=== PATIENT | female | born 1950 | race Caucasian/White ===

== ENCOUNTER 2016-05-04 08:46 | Inpatient (IN) | payer MEDICARE, OTHER ==
--- NOTE | 2016-05-04 10:21 | RAD ---
INDICATION: Dizziness COMPARISON: CT of the brain dated July 03, 2008 TECHNIQUE: Contiguous axial sections of the brain were obtained from the skull base to the vertex without contrast. FINDINGS: The ventricles, cisterns and sulci are within normal limits. Located at the right frontal lobe white matter tracts there is a new 7 mm focal hypodensity (image 18 of 32). Also new since the previous CT of the brain is a 6 mm hypodense focus at the left caudate head nucleus (image 13). The zuniga-white matter differentiation is adequately maintained and there is no sulcal effacement. No significant focal abnormality or mass effect is present. A new focus of calcium is noted external to the left precentral gyrus (image 20 of 32) of doubtful clinical significance. There is no evidence for intracranial hemorrhage. No significant focal osseous abnormality is present. The mastoid air cells are clear. There is mild mucosal thickening of the anterior ethmoid air cells. IMPRESSION: When compared to the July 03, 2008 CT of the brain there are age indeterminant infarctions involving the right frontal lobe white matter tracts and left caudate head nucleus. If the patient is exhibiting focal neurologic deficits then further characterization can be obtained with MRI of the brain.
[2016-05-04] MEDS ORDERED: NS 0.9% 1000 ML* 1,000 ML IV ONE (12:19)
[2016-05-04 12:51] LABS: Hematocrit 45 % (35-47); Hemoglobin 15.2 g/dl (12.0-16.0); Mean Corpuscular HGB Conc 34 g/dl (31-36); Mean Corpuscular Hemoglobin 33 pg (27-31); Mean Corpuscular Volume 98 fL (80-97); Mean Platelet Volume 8 um3 (7.4-10.4); Red Blood Count 4.59 10^6/ul (4.0-5.4); Red Cell Distribution Width 13 % (10.5-15); White Blood Count 5.9 10^3/ul (3.5-10.8)
[2016-05-04 13:08] LABS: Albumin 4.2 g/dL (3.2-5.2); BUN/Creatinine Ratio 17.2 (8-20); Calcium 9.6 mg/dL (8.6-10.3); EGFR Non-African American 65.3 (>60); Globulin 2.9 g/dL (2-4); Total Bilirubin 0.6 mg/dL (0.2-1.0); Total Protein 7.1 g/dL (6.4-8.9)
[2016-05-04 13:29] LABS: TSH (Thyroid Stimulating Horm) 1.57 mcIU/mL (0.34-5.60)
[2016-05-04 13:30] LABS: Urine Bacteria 1+ (Absent); Urine Bilirubin Negative (Negative); Urine Glucose Negative (Negative); Urine Nitrite Negative (Negative)
--- NOTE | 2016-05-04 16:23 | RAD ---
INDICATION: Weakness COMPARISON: CT brain May 04, 2016 TECHNIQUE: sagittal T1 FLAIR, axial diffusion, axial T1 FLAIR, axial T2, axial T2 FLAIR, and SWI images were acquired. FINDINGS: Craniocervical junction: The craniocervical junction appears normal. Ventricles/sulci: The ventricles and cisterns are normal in size and configuration for age. Brain parenchyma: Diffusion weighted images show multiple tiny areas of restricted diffusion in the periventricular and subcortical white matter bilaterally most prominent near the vertex. The distribution suggests acute/subacute embolic phenomena. There is a lacunar type infarct in the left caudate nucleus consistent with a prior ischemic event. There are no other focal parenchymal abnormalities. There is no evidence of intracranial mass or mass effect. Intracranial hemorrhage: There is no intracranial hemorrhage. Extra-axial spaces: There are no extra-axial fluid collections or masses. Orbits: There are no MR abnormalities of the orbital structures. Paranasal sinuses/mastoid: The paranasal sinuses are clear. The mastoid air cells are well aerated.. Vascular: No abnormalities are seen. Other: None IMPRESSION: TINY FOCI OF RESTRICTED DIFFUSION IN BOTH CEREBRAL HEMISPHERES MOST CONSISTENT WITH ACUTE ISCHEMIA LIKELY FROM EMBOLIC PHENOMENA. 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
[2016-05-04] MEDS ORDERED: hydrOXYzine HCL TAB* 25 MG PO ONE (17:08)
[2016-05-04] MEDS ORDERED: Acetaminophen TAB* 325 MG PO PRN (17:14)
[2016-05-04] MEDS ORDERED: Aspirin TAB* 325 MG PO ONE (17:19)
[2016-05-04] MEDS ORDERED: Iohexol 350* (CONTRAST) 500 ML MDV IV ONE (17:21)
--- NOTE | 2016-05-04 18:28 | RAD ---
INDICATION: CVA COMPARISON: MRI brain same date TECHNIQUE: Axial source images were acquired with coronal and sagittal reconstructions. CT angiographic technique was utilized with injection of 80 mL Omnipaque 350. FINDINGS: Aortic arch: There are no CT angiogram abnormalities of the arch or the great vessels arising from the arch. There are mild atherosclerotic calcifications. Right carotid: There is presumed interval thickening of the common carotid artery. The right internal carotid artery is small in caliber. There is no focal stenosis of the bifurcation. The horizontal portion of the internal carotid artery is irregular and small in caliber. The carotid siphon is also small in caliber and there are atherosclerotic calcifications. The remainder of the internal carotid artery to the carotid termination is likely small in caliber. Left carotid: The common carotid artery is widely patent. There are extensive intimal microcalcifications the bifurcation with an estimated 70% diameter stenosis. The remaining extracranial portion of the internal carotid artery is patent and without focal stenosis although it is mildly diminished in caliber. There are atherosclerotic changes at the level of the carotid siphon. The carotid termination is patent. Right middle and anterior cerebral arteries: The anterior and middle cerebral arteries are patent. There are luminal irregularities with multifocal stenoses. Left middle and anterior cerebral arteries: The anterior middle cerebral arteries are patent. There are luminal irregularities with multifocal stenoses. Right vertebral: The right vertebral artery is occluded at its origin and is only reconstituted near the confluence to form the basilar artery. Left vertebral: The CT angiographic appearance of the vertebral artery is normal. Basilar artery: The basilar artery and basilar tip appear normal. Posterior cerebral arteries: The posterior cerebral arteries are small in caliber. [place]: The CT angiographic appearance of the [place] is intact. Source images show no evidence of mass or adenopathy within the neck. There are no focal parenchymal abnormalities or abnormal areas of enhancement. There is apparent mild diffuse thickening of the esophagus. Consider esophagitis. Recommend endoscopy if clinically indicated. IMPRESSION: THERE ARE DIFFUSE LUMINAL IRREGULARITIES WITH MULTIFOCAL STENOSES THROUGHOUT THE INTERNAL AND MIDDLE CEREBRAL ARTERIES BILATERALLY. ADDITIONALLY, THERE ARE ATHEROSCLEROTIC CHANGES AT THE LEFT CAROTID BIFURCATION RESULTING IN A FOCAL 70% DIAMETER STENOSIS. THESE FINDINGS WHEN REVIEWED IN CONTEXT WITH THE CONCURRENT MRI OF THE BRAIN SUGGEST THAT THE DIFFERENTIAL FOR THE ETIOLOGY OF THE THE PUNCTATE AREAS OF ACUTE ISCHEMIA ON THE MRI SHOULD ALSO INCLUDE A VASCULITIS OR ATHEROSCLEROTIC CHANGE. CPT II Codes: 3100F PQRS
[2016-05-04] MEDS: Mometasone/Formoter 200/5 MDI INH SCH (20:19)
--- NOTE | 2016-05-04 21:52 | HP ---
HISTORY AND PHYSICAL: DATE OF ADMISSION: 05/04/16 PRIMARY CARE PROVIDER: Dr. Kelley. CHIEF COMPLAINT: Off balance. HISTORY OF PRESENT ILLNESS: Ms. Sanders is a 65-year-old female who presented to the emergency room on 05/04/16 with complaints of being off balance. The patient states over the last 1 week, she has had intermittent episodes of stumbling around and feeling as if her equilibrium was off. The patient states that she woke up in the middle of last night having to go to the bathroom and had a very difficulty time getting to the bathroom. She states that feeling off balance lasted all night long. She denied any sensation of dizziness or spinning. She states that she did not feel light-headed. She denies any sudden changes in vision, slurred speech, facial droop or weakness on either side of her body. The patient states in general she has felt quite well except for this feeling of being off balance except she had a cold about a [id number] ago and was on prednisone. Additionally, the patient remembers that couple of weeks ago she presented to the emergency room for markedly elevated blood pressure. This in fact was in February 2016. PAST MEDICAL HISTORY: 1. Chronic urticaria. 2. Hypertension. 3. COPD. 4. CAD. PAST SURGICAL HISTORY: 1. Cholecystectomy. 2. CASEY-BSO. ALLERGIES: LATEX, NIACIN and STATINS. FAMILY HISTORY: Mom at the age of 93 of old age. Dad at the age of 75 of peritonitis following what sounds to be a colonic perforation. SOCIAL HISTORY: The patient is an active smoker of one pack per day and states that she has been smoking for at least to 20 years. She admits to drinking 2 to 3 alcoholic beverages per night. She is . She has one daughter whose name is Nafisa Calvin, phone number is [phone], who is her healthcare proxy. REVIEW OF SYSTEMS: The patient denies any fevers or chills, or anorexia. No chest pain, no palpitations. No lower extremity edema. She does admit to a smoker's cough. No shortness of breath. No nausea, vomiting, abdominal pain, constipation, diarrhea, or hematochezia. She denies any hematuria. She does note urinary urgency for the last couple of days as well as mild dysuria. No focal weakness or sensory loss as above. No dysphagia. No joint pain or muscle pains out of the ordinary. No rashes. No anxiety or depression. PHYSICAL EXAMINATION GENERAL: The patient is a well developed, middle aged female, sitting in a stretcher, in no acute distress. VITAL SIGNS: Blood pressure 152/73, pulse 94, respirations 17, temp 97.3, O2 sat is 92% on room air. HEENT: Pupils are equal. They are round. They react to light. Extraocular muscles are intact. Oropharynx is clear. Oral mucosa is moist. NECK: There is no submandibular, cervical, or supraclavicular adenopathy. Thyroid is not enlarged. No thyroid nodules are noted. PULMONARY: Breath sounds are diminished in all lung solis. CARDIAC: Normal S1, S2. Regular rate and rhythm. I do not appreciate any murmurs. There is no lower extremity edema. ABDOMEN: Bowel sounds are present. Soft, nontender, nondistended. MUSCULOSKELETAL: There is no cyanosis or clubbing of the digits. There is full active range of motion of all 4 extremities. NEUROLOGIC: Cranial nerves II through XII are grossly intact. Sensation is intact to light touch throughout. Strength is 5/5 and symmetric in both upper and lower extremities bilaterally. PSYCH: The patient is alert. She is oriented x3. Affect appears appropriate. SKIN: Warm and dry. There are no rashes. DIAGNOSTIC STUDIES/LABORATORY DATA: WBC 5.9, hemoglobin 15.2, hematocrit 45, platelets 195. Sodium 136, potassium 4.0, chloride 105, CO2 26, BUN 15, creatinine 0.87, glucose 106, lactic acid 1.0. Calcium 9.6, magnesium 2.0, bilirubin 0.6, AST 16, ALT 11, alk phos 57, troponin 0, albumin 4.28, TSH 1.57. Urinalysis reveals a cloudy urine with a specific gravity of 1.012, 3+ leukocyte esterase, 2+ wbc's, 1+ bacteria. When compared to 07/03/08 CT of the brain, there are age indeterminate infarctions involving the right frontal lobe, white matter tracts and left caudate head nucleus. MRI brain, tiny foci of restricted diffusion in both cerebral hemispheres most consistent with acute ischemia likely from embolic phenomenon. Older smaller infarct of the left caudate nucleus is also noted. EKG reveals normal sinus rhythm without any acute ST-T wave abnormalities. ASSESSMENT AND PLAN: Ms. Sanders is a 65-year-old female who presented to the emergency room with complaints of feeling off balance in the setting of known hypertension, chronic obstructive pulmonary disease, coronary artery disease and is found to have small areas of tiny restricted diffusion on MRI consistent with acute embolic cerebrovascular accidents. 1. Acute embolic cerebrovascular accidents. The patient carries no history of atrial fibrillation. She will be monitored on telemetry to evaluate for this. Additionally, the patient will undergo a CT angiogram of the head and neck. She will also have transthoracic echocardiogram. The patient will receive a full dose aspirin tonight and then continued on aspirin 81 mg p.o. daily. A lipid profile will be obtained tomorrow morning. Unfortunately, the patient does carry intolerance to statins. Neuro checks will be performed q.4 hours. The patient does not have any speech deficits. Therefore, I do not feel that Speech Therapy consultation is warranted nor does she have any PT or OT needs at this time. 2. Hypertension. At this point, the patient's blood pressure is moderately elevated. I will be maintaining her on her usual home medication regimen. In the next day or so, we will need to work on obtaining better blood pressure control. 3. Chronic obstructive pulmonary disease. The patient will be placed on a nicotine patch for history of tobacco abuse. She will be continued on her usual dose of Advair and Spiriva and have albuterol inhaler as needed. There are no signs of exacerbation at this time. 4. Coronary artery disease. The patient has no complaints. She will be again continued on aspirin 81 mg daily as well as metoprolol tartrate. 5. DVT prophylaxis. According to Adult Thrombosis Prophylaxis Risk Factor Assessment Guide, the patient has a total risk factor score of 7 making her the highest risk. She will placed on heparin 5000 units subcutaneous q.8 hours. 6. Code status is full. Again, the patient indicates that her daughter, Nafisa , is her healthcare proxy. TIME SPENT: 65 minutes were spent admitting this patient. CC: Dr. Kelley * [id number]/[facility] #: [id number] VINICIUS
[2016-05-04] MEDS: CMCS: OMEGA-3 FATTY ACIDS (NF) 1,000 MG CAP PO SCH (22:57)
[2016-05-04] MEDS: hydrOXYzine HCL TAB* 25 MG PO PRN (22:57)
[2016-05-04] MEDS: Metoprolol Tartrate TAB* 50 mg PO SCH (22:57)
[2016-05-04] MEDS: Spironolactone TAB* 25 MG PO SCH (22:57)
[2016-05-04] MEDS: Heparin VIAL(*) 5000 UNITS/ML VIAL (FIVE THOUSAND) SUBCUT SCH (22:58)
--- NOTE | 2016-05-04 23:39 | CONS ---
CC: Claire Kelley MD CONSULTATION REPORT: DATE OF CONSULT: 05/04/16 REQUESTING PHYSICIAN: Dr. Phan. PRIMARY CARE DOCTOR: Claire Kelley MD. REASON FOR CONSULT: Stroke. HISTORY OF PRESENT ILLNESS: The patient is a 65-year-old right-handed female who in the past week had experienced intermittent gait problem on and off. Last night when she woke up in the middle of the night to go to the bathroom, she really felt off balance. She called her daughter this morning and then she was brought to the hospital. During the workup, an MRI of the brain showed some scattered small strokes compatible with embolic stroke. A CT angiogram showed multiple stenosis in the carotids and suspicious for vasculitis. She denies any double vision, dysarthria, numbness or weakness in the legs and arms. She reports some dysphagia; however, that has been present for more than 1 week ago, again intermittently. PAST MEDICAL HISTORY: 1. Hypertension. 2. COPD. 3. Chronic urticaria. 4. Allergic rhinitis. 5. She mentioned that she has been having positive rheumatoid factor, but not diagnosed with rheumatoid arthritis. PAST SURGICAL HISTORY: 1. Laparoscopic cholecystectomy in 2011. 2. Tonsillectomy. 3. Hysterectomy and Oophorectomy. MEDICATIONS: Home medications include: 1. Amlodipine 2.5 mg p.o. daily. 2. Spiriva inhaler 1 puff daily. 3. Spironolactone 25 mg p.o. b.i.d. 4. Fish oil. 5. Lopressor 50 mg p.o. b.i.d. 6. Hydroxyzine 25 mg p.o. q.6 hours p.r.n. 7. Advair. 8. Rajani. 9. Aspirin 81 mg p.o. daily. 10. Albuterol. Medications in hospital include: 1. Tylenol 650 mg p.o. q.4 hours p.r.n. 2. Albuterol. 3. Amlodipine 2.5 mg p.o. daily. 4. Heparin 5000 units q.8 hours. 5. Hydroxyzine 25 mg p.o. q.6 hours p.r.n. 6. Lopressor 50 mg p.o. b.i.d. 7. Dulera 2 puffs inhaler b.i.d. 8. Nicotine patch. 9. Spironolactone 25 mg p.o. b.i.d. 10. Spiriva. ALLERGIES: To LATEX, NIACIN and STATINS FAMILY HISTORY: Mother in her 90s, had a history of diabetes and coronary artery disease. She also had a stroke in her 80s. Father at age 75 because of peritonitis, had a history of asthma and COPD and probably both parents had CHF. She had one sister who of breast cancer and another sister who had also stroke, currently in her 70s. She has one daughter who is healthy. SOCIAL HISTORY: The patient smokes one pack per day since age 18. She has a history of probably 2-3 beers, sometimes daily. 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 REVIEW OF SYSTEMS: Complete review of systems was performed and other than what is mentioned above is negative. PHYSICAL EXAM: Blood pressure 152/73, pulse rate 74, respiratory rate 17, and O2 sat 99%. The patient is awake, alert and oriented x3. On neurological exam , pupils are symmetric and reactive to light. Visual solis are intact by confrontation. V1 to V3 is intact to light touch and pinprick. Face is symmetric. Tongue is midline. Palate elevates upright. Strength is 5/5 throughout. Sensation is intact to light touch and pinprick in the upper and lower extremities. Proprioception is intact bilaterally in the lower extremities. [id number] is intact bilaterally. Rapid alternating movements are intact. Speech is fluent and naming is intact. NIH stroke scale is 0. LABORATORY DATA: WBC 5.9, hemoglobin 15.2, hematocrit 45. INR 1.03. Sodium 136, potassium 4, chloride 105, BUN 15, creatinine 0.87, glucose 106, AST 16, ALT 11, alkaline phosphatase 57. TSH 1.57. Urine has 3+ leukocyte esterase. IMAGING: MRI of the brain today showed tiny foci of restricted diffusion in both cerebral hemispheres most consistent with acute ischemia, likely from embolic phenomenon. Old small infarct, left caudate nucleus. CT angiogram of the head and neck showed diffuse luminal irregularities with multifocal stenosis throughout the internal and medial cerebral arteries bilaterally. Additionally there are atherosclerotic changes at the left carotid bifurcation resulting in a focal 70% damage or stenosis. These findings when reviewed in context with the concurrent MRI of the brain suggest that the differential for the etiology punctate areas of acute ischemia under MRI should also include a vasculitis or atherosclerotic changes. ASSESSMENT AND PLAN: The patient is a 65-year-old female with presence of ataxia. Currently, MRI shows findings compatible with embolic stroke and CT angiogram is suspicious for vasculitis versus diffuse atherosclerotic plaques. At this time I think it would be important to have an LP to investigate presence of inflammation in the cerebrospinal fluid and rule out infection. The CSF should be sent for routine cell and chemistry, routine gram stain and culture, oligoclonal bands, IgG synthesis, VDRL, Lyme antibody, ALEM, AFB stain and culture, HSV antibody. Blood tests that need to be done include RPR, VDRL, Lyme IgG and IgM, Hepatitis B and C serology, CAMRON, SSA, and SSB, SUPERVISOR [employer] antigens, double stranded DNA, antiphospholipid antibodies, ANCA, P-ANCA, C3,C4, cryoglobulins, SPEP, UPEP. Further recommendations will be based on findings in the CSF. She may need a 4- vessel cerebral angiogram. The patient also needs an echocardiogram of the heart , which is scheduled for tomorrow. Continue tele-monitoring. [id number]/[facility] #: [id number] MTDD
[2016-05-05] MEDS: Albuterol HFA INHALER* 8 gm MDI INH PRN ×2 (02:46→07:45)
[2016-05-05 05:55] LABS: Hematocrit 41 % (35-47); Hemoglobin 13.7 g/dl (12.0-16.0); Mean Corpuscular HGB Conc 33 g/dl (31-36); Mean Corpuscular Hemoglobin 33 pg (27-31); Mean Corpuscular Volume 98 fL (80-97); Mean Platelet Volume 8 um3 (7.4-10.4); Red Cell Distribution Width 13 % (10.5-15); White Blood Count 5.6 10^3/ul (3.5-10.8)
[2016-05-05 06:08] LABS: BUN/Creatinine Ratio 12.5 (8-20); Calcium 9.1 mg/dL (8.6-10.3); EGFR African American 82.9 (>60); EGFR Non-African American 64.5 (>60); HDL Cholesterol 49.6 mg/dL; Potassium 3.9 mmol/L (3.5-5.0)
[2016-05-05] MEDS: Heparin VIAL(*) 5000 UNITS/ML VIAL (FIVE THOUSAND) SUBCUT SCH ×3 (06:10→22:07)
[2016-05-05] MEDS: hydrOXYzine HCL TAB* 25 MG PO PRN ×2 (06:10→19:42)
[2016-05-05] MEDS ORDERED: amLODIPine TAB* 5 MG PO SCH (09:00)
[2016-05-05] MEDS: Tiotropium CAP.INH* CAP.INH/18 MCG (USE ORDER SET !) INH SCH (10:07)
[2016-05-05] MEDS: Mometasone/Formoter 200/5 MDI INH SCH ×2 (10:07→20:27)
[2016-05-05] MEDS: CMCS: OMEGA-3 FATTY ACIDS (NF) 1,000 MG CAP PO SCH ×3 (11:41→22:11)
[2016-05-05] MEDS: Spironolactone TAB* 25 MG PO SCH ×2 (11:41→22:06)
[2016-05-05] MEDS: Metoprolol Tartrate TAB* 50 mg PO SCH ×2 (11:41→19:36)
[2016-05-05] MEDS: Nicotine PATCH 14 MG/24 HR* PATCH TRANSDERM SCH (11:42)
--- NOTE | 2016-05-05 12:09 | PN ---
Progress Note - Progress Note SOAP: Neurology progress note Date of service: 05/05/16 Subjective: No acute events overnight. Patient has no new symptoms and feeling okay today. Objective: Vital Signs Temp Pulse Resp BP Pulse Ox 98.4 F 76 14 112/57 98 05/05/16 11:30 05/05/16 11:30 05/05/16 11:30 05/05/16 11:30 05/05/16 11:30 Current Medications Acetaminophen (Tylenol Tab*) 650 mg PO Q4H PRN PRN Reason: PAIN Albuterol (Ventolin Hfa Inhaler*) 2 puff INH Q4HR PRN PRN Reason: SOB/WHEEZING Last Admin: 05/05/16 07:45 Dose: 2 puff Amlodipine Besylate (Norvasc Tab*) 2.5 mg PO DAILY [facility] Last Admin: 05/05/16 11:42 Dose: 2.5 mg Device (Tiotropium Inhaler Device*) 1 each INH DAILY [facility] Fish Oil (Fish Oil (Nf)) 1,000 mg PO TID [facility] PRN Reason: Protocol Last Admin: 05/05/16 11:41 Dose: 1,000 mg Heparin Sodium (Porcine) (Heparin Vial(*)) 5,000 units SUBCUT Q8HR [facility] Last Admin: 05/05/16 06:10 Dose: 5,000 units Hydroxyzine HCl (Atarax Tab*) 25 mg PO Q6H PRN PRN Reason: ITCHING Last Admin: 05/05/16 06:10 Dose: 25 mg Metoprolol Tartrate (Lopressor Tab*) 50 mg PO BID WITH MEALS [facility] Last Admin: 05/05/16 11:41 Dose: 50 mg Mometasone Furoate/Formoterol Fumar (Dulera 200/5 Mdi*) 2 puff INH BID [facility] Last Admin: 05/05/16 10:07 Dose: 2 puff Nicotine (Nicotine Patch 14 Mg/24 Hr*) 1 patch TRANSDERM Q24H [facility] Last Admin: 05/05/16 11:42 Dose: 1 patch Pharmacy Profile Note (Nicotine Patch Removal Note*) 1 note PATCH OFF 2100 [facility] Spironolactone (Aldactone Tab*) 25 mg PO BID [facility] Last Admin: 05/05/16 11:41 Dose: 25 mg Tiotropium [place] (Spiriva Cap.Inh*) 1 cap INH DAILY [facility] Last Admin: 05/05/16 10:07 Dose: 1 cap Laboratory Results - last 24 hr 05/04/16 05/04/16 05/04/16 12:35 12:35 12:35 WBC 5.9 RBC 4.59 Hgb 15.2 Hct 45 MCV 98 H MCH 33 H MCHC 34 RDW 13 Plt Count 195 MPV 8 Neut % (Auto) 61.6 Lymph % (Auto) 24.8 L [place] % (Auto) 9.4 H Eos % (Auto) 3.6 Baso % (Auto) 0.6 Absolute Neuts (auto) 3.6 Absolute Lymphs (auto) 1.5 Absolute Monos (auto) 0.6 Absolute Eos (auto) 0.2 Absolute Basos (auto) 0 Absolute Nucleated RBC 0 Nucleated RBC % 0.1 ESR Sodium 136 Potassium 4.0 Chloride 105 Carbon Dioxide 26 Anion Gap 5 BUN 15 Creatinine 0.87 Est GFR ( Amer) 84.0 Est GFR (Non-Af Amer) 65.3 BUN/Creatinine Ratio 17.2 Glucose 106 H Lactic Acid 1.0 Calcium 9.6 Magnesium 2.0 Total Bilirubin 0.60 AST 16 ALT 11 Alkaline Phosphatase 57 Troponin I 0.00 C-Reactive Protein Total Protein 7.1 Albumin 4.2 Globulin 2.9 Albumin/Globulin Ratio 1.4 Triglycerides Cholesterol LDL Cholesterol HDL Cholesterol TSH 1.57 Urine Color Urine Appearance Urine pH Ur Specific [place] Urine Protein Urine Ketones Urine Blood Urine Nitrate Urine Bilirubin Urine Urobilinogen Ur Leukocyte Esterase Urine WBC (Auto) Urine RBC (Auto) Ur Squamous Epith Cells Urine Bacteria Urine Glucose 05/04/16 05/05/16 05/05/16 13:20 05:20 05:20 WBC 5.6 RBC 4.20 Hgb 13.7 Hct 41 MCV 98 H MCH 33 H MCHC 33 RDW 13 Plt Count 179 MPV 8 Neut % (Auto) 56.5 Lymph % (Auto) 29.4 [place] % (Auto) 9.9 H Eos % (Auto) 3.9 Baso % (Auto) 0.3 Absolute Neuts (auto) 3.2 Absolute Lymphs (auto) 1.6 Absolute Monos (auto) 0.6 Absolute Eos (auto) 0.2 Absolute Basos (auto) 0 Absolute Nucleated RBC 0 Nucleated RBC % 0 ESR Sodium 135 Potassium 3.9 Chloride 109 Carbon Dioxide 23 Anion Gap 3 BUN 11 Creatinine 0.88 Est GFR ( Amer) 82.9 Est GFR (Non-Af Amer) 64.5 BUN/Creatinine Ratio 12.5 Glucose 93 Lactic Acid Calcium 9.1 Magnesium Total Bilirubin AST ALT Alkaline Phosphatase Troponin I C-Reactive Protein Total Protein Albumin Globulin Albumin/Globulin Ratio Triglycerides 173 Cholesterol 260 LDL Cholesterol 176 HDL Cholesterol 49.6 TSH Urine Color Yellow Urine Appearance Cloudy Urine pH 5.0 Ur Specific [place] 1.012 Urine Protein Negative Urine Ketones Negative Urine Blood Negative Urine Nitrate Negative Urine Bilirubin Negative Urine Urobilinogen Negative Ur Leukocyte Esterase 3+ H Urine WBC (Auto) 2+(11-20/hpf) H Urine RBC (Auto) Absent Ur Squamous Epith Cells Present H Urine Bacteria 1+ H Urine Glucose Negative 05/05/16 05/05/16 06:05 06:05 WBC RBC Hgb Hct MCV MCH MCHC RDW Plt Count MPV Neut % (Auto) Lymph % (Auto) [place] % (Auto) Eos % (Auto) Baso % (Auto) Absolute Neuts (auto) Absolute Lymphs (auto) Absolute Monos (auto) Absolute Eos (auto) Absolute Basos (auto) Absolute Nucleated RBC Nucleated RBC % ESR 18 Sodium Potassium Chloride Carbon Dioxide Anion Gap BUN Creatinine Est GFR ( Amer) Est GFR (Non-Af Amer) BUN/Creatinine Ratio Glucose Lactic Acid Calcium Magnesium Total Bilirubin AST ALT Alkaline Phosphatase Troponin I C-Reactive Protein 5.04 H Total Protein Albumin Globulin Albumin/Globulin Ratio Triglycerides Cholesterol LDL Cholesterol HDL Cholesterol TSH Urine Color Urine Appearance Urine pH Ur Specific [place] Urine Protein Urine Ketones Urine Blood Urine Nitrate Urine Bilirubin Urine Urobilinogen Ur Leukocyte Esterase Urine WBC (Auto) Urine RBC (Auto) Ur Squamous Epith Cells Urine Bacteria Urine Glucose Neurological exam is unchanged. Alert and oriented x3, speech normal. Pupils symmetric and reactive to light. Extraocular movements intact with no nystagmus. Face symmetric, tongue is in midline, palate elevates upward symmetrically. Muscle tone and bulk normal, motor strength 5/5 throughout. No resting or positional tremor. Reflexes 2+ and symmetric in the upper and lower extremities. Finger to nose intact bilaterally. SILVIA intact bilaterally. Gait narrow based and steady Assessment Plan: The patient is a 65-year-old female with episodes of intermittent ataxia, now resolved. MRI shows findings compatible with embolic stroke and CT angiogram is suspicious for vasculitis versus diffuse atherosclerotic plaques. 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 Plan for LP and serum rheumatological tests as outlined in the original consult note. Discussed with the patient and her daughter.
--- NOTE | 2016-05-05 12:49 | PN ---
Subjective Date of Service: 05/05/16 Interval History: Patient seen this morning. Says she feels that her symptoms are improved today. Has been ambulating around the unit with no issues. No headache, fever, chills. Understands MRI/CTA findings and plans for LP. Family History: Unchanged from Admission Social History: Unchanged from Admission Past Medical History: Unchanged from Admission Objective Active Medications: Acetaminophen (Tylenol Tab*) 650 mg PO Q4H PRN Albuterol (Ventolin Hfa Inhaler*) 2 puff INH Q4HR PRN Amlodipine Besylate (Norvasc Tab*) 2.5 mg PO DAILY NATE Device (Tiotropium Inhaler Device*) 1 each INH DAILY NATE Fish Oil (Fish Oil (Nf)) 1,000 mg PO TID NATE Heparin Sodium (Porcine) (Heparin Vial(*)) 5,000 units SUBCUT Q8HR NATE Hydroxyzine HCl (Atarax Tab*) 25 mg PO Q6H PRN Metoprolol Tartrate (Lopressor Tab*) 50 mg PO BID WITH MEALS [facility] Mometasone Furoate/Formoterol Fumar (Dulera 200/5 Mdi*) 2 puff INH BID NATE Nicotine (Nicotine Patch 14 Mg/24 Hr*) 1 patch TRANSDERM Q24H [facility] Pharmacy Profile Note (Nicotine Patch Removal Note*) 1 note PATCH OFF 2100 NATE Spironolactone (Aldactone Tab*) 25 mg PO BID NATE Tiotropium [place] (Spiriva Cap.Inh*) 1 cap INH DAILY [facility] Vital Signs 05/04/16 05/04/16 05/04/16 18:22 18:30 20:25 Temperature 97.1 F Pulse Rate 78 81 76 Respiratory 15 16 16 Rate Blood Pressure 152/71 (mmHg) O2 Sat by Pulse 97 98 97 Oximetry 05/05/16 05/05/16 05/05/16 00:19 03:17 08:24 Temperature 97.8 F 98.3 F 98.2 F Pulse Rate 71 76 72 Respiratory 16 16 14 Rate Blood Pressure 121/66 105/72 114/69 (mmHg) O2 Sat by Pulse 96 97 100 Oximetry Oxygen Devices in Use Now: None Appearance: Middle-aged, F, laying in bed in NAD Eyes: No Scleral Icterus Ears/Nose/Mouth/Throat: Mucous Membranes Moist Neck: NL Appearance and Movements; NL JVP Respiratory: Symmetrical Chest Expansion and Respiratory Effort, Clear to Auscultation Cardiovascular: NL Sounds; No Murmurs; No JVD, RRR Abdominal: NL Sounds; No Tenderness; No Distention Lymphatic: No Cervical Adenopathy Extremities: No Edema Skin: No Rash or Ulcers Neurological: Alert and Oriented x 3, - - CN II-XII intact, strenght 5/5 throughout B/L UEs and LEs, sensation intact and symmetric B/L, no pronator drift, [id number] intact, did not assess gait Result Diagrams: 05/05/16 05:20 05/05/16 05:20 Assess/Plan/Problems-Billing Assessment: Ataxia with MRI concerning for bi-hemispheric ischemic areas that appear embolic and 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 MRI and CTA show evidence of stroke and concern for possible MANUFACTURING BUSINESS ANALYST vasculitis. Additional blood testing ordered. LP today. Echo ordered, likely will happen tomorrow. Continue ASA 325 mg daily. LDL elevated, will discuss statins with the patient. (2) Hypertension Current Visit: No Comment: Continue home Norvasc (3) COPD (chronic obstructive pulmonary disease) Current Visit: No Comment: Continue Spiriva, Dulera, prn albuterol (4) DVT prophylaxis Current Visit: Yes Comment: HSQ
--- NOTE | 2016-05-05 14:52 | PN ---
Hospitalist Progress Note Procedure Note: Procedure: Lumbar Puncture Date of Procedure: 05/05/2016 Time of Procedure: 2:10 PM Site of Procedure: 4S Rm 441-2 Service: Hospital Medicine Proceduralist: Dr. 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 Patient was in a seated position at the side of the bed , L3/L4 spinal space was palpated and marked. Site was cleaned with povidone and area was covered with sterile fenestrated drape. Site was anesthetized locally with 5 cc of 1% Lidocaine. Once area was appropriately numbed a 22G spinal needle was inserted with return of clear cerebrospinal fluid. 2-3 cc were taken in each of 4 bottles. Spinal needle was removed with minimal blood loss and site was covered with a band-aid. EBL: 1-2 cc Patient tolerated procedure well.
[2016-05-05] MEDS: Aspirin EC TAB* 325 MG PO SCH (15:12)
[2016-05-05 15:26] LABS: Body Fluid Appearance Clear
[2016-05-05 15:30] LABS: BF RBC Count #1 64; BF WBC Count #1 1
[2016-05-05 15:33] LABS: BF RBC Count #2 60; BF WBC Count #2 1; Body Fluid WBC 1 /mcL; RBC counts within 6%? Yes; WBC counts within 15%? Yes
[2016-05-05 15:35] LABS: CSF Glucose 69 mg/dL (40-70)
[2016-05-05 15:43] LABS: Body Fluid Total Cells Counted 4
[2016-05-05] MEDS: diPHENhydraMINE PO* 25 MG PO PRN ×2 (16:12→23:13)
[2016-05-05] MEDS: Nicotine Patch Removal NOTE PATCH OFF SCH (22:08)
[2016-05-06] MEDS: hydrOXYzine HCL TAB* 25 MG PO PRN ×2 (01:37→09:25)
[2016-05-06] MEDS: Heparin VIAL(*) 5000 UNITS/ML VIAL (FIVE THOUSAND) SUBCUT SCH ×3 (05:49→21:27)
[2016-05-06] MEDS: diPHENhydraMINE PO* 25 MG PO PRN ×2 (05:56→21:27)
[2016-05-06] MEDS: Aspirin EC TAB* 325 MG PO SCH (09:15)
[2016-05-06] MEDS: CMCS: OMEGA-3 FATTY ACIDS (NF) 1,000 MG CAP PO SCH ×3 (09:15→19:57)
[2016-05-06] MEDS: Nicotine PATCH 14 MG/24 HR* PATCH TRANSDERM SCH (09:15)
[2016-05-06] MEDS: Spiriva Inhaler DEVICE* 1 EACH DEVICE INH SCH (09:30)
[2016-05-06] MEDS: Tiotropium CAP.INH* CAP.INH/18 MCG (USE ORDER SET !) INH SCH (09:30)
[2016-05-06] MEDS: Mometasone/Formoter 200/5 MDI INH SCH ×2 (10:11→21:56)
[2016-05-06 11:49] LABS: Syphilis Index < 0.1 Index
[2016-05-06] MEDS: Spironolactone TAB* 25 MG PO SCH ×2 (11:50→19:58)
[2016-05-06] MEDS: Metoprolol Tartrate TAB* 50 mg PO SCH ×2 (11:57→19:55)
--- NOTE | 2016-05-06 12:32 | PN ---
Subjective Date of Service: 05/06/16 Interval History: Patient seen this morning. No new complaints aside from itchiness from tele stickers. Has been ambulating with no issues. Family History: Unchanged from Admission Social History: Unchanged from Admission Past Medical History: Unchanged from Admission Objective Active Medications: Acetaminophen (Tylenol Tab*) 650 mg PO Q4H PRN Albuterol (Ventolin Hfa Inhaler*) 2 puff INH Q4HR PRN Aspirin (Ecotrin Ec Tab*) 325 mg PO DAILY NATE Device (Tiotropium Inhaler Device*) 1 each INH DAILY NATE Diphenhydramine HCl (Benadryl Po*) 25 mg PO Q6H PRN Fish Oil (Fish Oil (Nf)) 1,000 mg PO TID NATE Heparin Sodium (Porcine) (Heparin Vial(*)) 5,000 units SUBCUT Q8HR NATE Hydroxyzine HCl (Atarax Tab*) 25 mg PO Q6H PRN Metoprolol Tartrate (Lopressor Tab*) 50 mg PO BID WITH MEALS NATE Mometasone Furoate/Formoterol Fumar (Dulera 200/5 Mdi*) 2 puff INH BID NATE Nicotine (Nicotine Patch 14 Mg/24 Hr*) 1 patch TRANSDERM Q24H [facility] Pharmacy Profile Note (Nicotine Patch Removal Note*) 1 note PATCH OFF 2100 NATE Spironolactone (Aldactone Tab*) 25 mg PO BID NATE Tiotropium [place] (Spiriva Cap.Inh*) 1 cap INH DAILY [facility] Vital Signs 05/05/16 05/05/16 05/05/16 15:50 16:12 18:12 Temperature 98.3 F Pulse Rate 65 Respiratory 18 18 16 Rate Blood Pressure 147/69 (mmHg) O2 Sat by Pulse 99 Oximetry 05/05/16 05/06/16 05/06/16 23:13 00:13 01:13 Temperature 98.2 F Pulse Rate 67 Respiratory 16 16 16 Rate Blood Pressure 117/68 (mmHg) O2 Sat by Pulse 98 Oximetry 05/06/16 05/06/16 05/06/16 07:43 07:56 11:10 Temperature 97.8 F 97.5 F Pulse Rate 67 71 Respiratory 16 16 18 Rate Blood Pressure 92/66 121/62 (mmHg) O2 Sat by Pulse 98 98 Oximetry Oxygen Devices in Use Now: None Appearance: Middle-aged, F, laying in bed in NAD Eyes: No Scleral Icterus Ears/Nose/Mouth/Throat: Mucous Membranes Moist Neck: NL Appearance and Movements; NL JVP Respiratory: Symmetrical Chest Expansion and Respiratory Effort, Clear to Auscultation Cardiovascular: NL Sounds; No Murmurs; No JVD, RRR Abdominal: NL Sounds; No Tenderness; No Distention Lymphatic: No Cervical Adenopathy Extremities: No Edema Skin: No Rash or Ulcers Neurological: Alert and Oriented x 3, NL Sensation, NL Muscle Strength and Tone , - - did not assess gait Result Diagrams: 05/05/16 05:20 05/05/16 05:20 Microbiology and Other Data: Microbiology 05/05/16 14:15 Acid Fast Bacilli Smear - Final Cerebral Spinal Fluid 05/05/16 14:15 CSF Gram Stain (Tube 3) - Final Cerebral Spinal Fluid Assess/Plan/Problems-Billing Assessment: Ataxia with MRI concerning for bi-hemispheric ischemic areas that appear embolic and 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 MRI and CTA show evidence of stroke and concern for possible FISCAL CLERK vasculitis. Initial CSF studies show no evidence of infection/inflammation. Echo pending. Continue ASA 325 mg daily. Patient reports intolerance to a number of different statins. Dr. Byrd to speak with [facility] regarding further work-up/treatment including DAPT vs AC. ?MISSY while inpatient. (2) Hypertension Current Visit: No Comment: Metoprolol and Spironolactone. [facility] held this AM due to hypotension. (3) COPD (chronic obstructive pulmonary disease) Current Visit: No Comment: Continue Spiriva, Dulera, prn albuterol (4) DVT prophylaxis Current Visit: Yes Comment: HSQ Status and Disposition: Pending further work-up
[2016-05-06] MEDS: Clopidogrel TAB* 75 MG PO SCH (14:45)
--- NOTE | 2016-05-06 16:34 | PN ---
Progress Note - Progress Note SOAP: Neurology progress note Date of service: 05/06/16: Subjective: The patient is feeling good; no new symptoms or recurrence of symptoms. TTE still pending. LP was done yesterday. The primary results do not show any sign of inflammation. Objective: Vital Signs Temp Pulse Resp BP Pulse Ox 97.5 F 71 18 121/62 98 05/06/16 11:10 05/06/16 11:10 05/06/16 15:16 05/06/16 11:10 05/06/16 11:10 Current Medications Acetaminophen (Tylenol Tab*) 650 mg PO Q4H PRN PRN Reason: PAIN Albuterol (Ventolin Hfa Inhaler*) 2 puff INH Q4HR PRN PRN Reason: SOB/WHEEZING Last Admin: 05/05/16 07:45 Dose: 2 puff Aspirin (Ecotrin Ec Tab*) 325 mg PO DAILY [facility] Last Admin: 05/06/16 09:15 Dose: 325 mg Clopidogrel Bisulfate (Plavix Tab*) 75 mg PO DAILY [facility] Last Admin: 05/06/16 14:45 Dose: 75 mg Device (Tiotropium Inhaler Device*) 1 each INH DAILY [facility] Last Admin: 05/06/16 09:30 Dose: 1 each Diphenhydramine HCl (Benadryl Po*) 25 mg PO Q6H PRN PRN Reason: Itching/Rash Last Admin: 05/06/16 05:56 Dose: 25 mg Fish Oil (Fish Oil (Nf)) 1,000 mg PO TID [facility] PRN Reason: Protocol Last Admin: 05/06/16 14:49 Dose: 1,000 mg Heparin Sodium (Porcine) (Heparin Vial(*)) 5,000 units SUBCUT Q8HR [facility] Last Admin: 05/06/16 14:45 Dose: 5,000 units Hydroxyzine HCl (Atarax Tab*) 25 mg PO Q6H PRN PRN Reason: ITCHING Last Admin: 05/06/16 09:25 Dose: 25 mg Metoprolol Tartrate (Lopressor Tab*) 50 mg PO BID WITH MEALS [facility] Last Admin: 05/06/16 11:57 Dose: 50 mg Mometasone Furoate/Formoterol Fumar (Dulera 200/5 Mdi*) 2 puff INH BID [facility] Last Admin: 05/06/16 10:11 Dose: 2 puff Nicotine (Nicotine Patch 14 Mg/24 Hr*) 1 patch TRANSDERM Q24H [facility] Last Admin: 05/06/16 09:15 Dose: 1 patch Pharmacy Profile Note (Nicotine Patch Removal Note*) 1 note PATCH OFF 2100 [facility] Last Admin: 05/05/16 22:08 Dose: 1 note Spironolactone (Aldactone Tab*) 25 mg PO BID [facility] Last Admin: 05/06/16 11:50 Dose: 25 mg Tiotropium [place] (Spiriva Cap.Inh*) 1 cap INH DAILY [facility] Last Admin: 05/06/16 09:30 Dose: 1 cap Laboratory Last Values WBC 5.6 10^3/ul (3.5-10.8) 05/05/16 05:20 RBC 4.20 10^6/ul (4.0-5.4) 05/05/16 05:20 Hgb 13.7 g/dl (12.0-16.0) 05/05/16 05:20 Hct 41 % (35-47) 05/05/16 05:20 MCV 98 fL (80-97) H 05/05/16 05:20 MCH 33 pg (27-31) H 05/05/16 05:20 MCHC 33 g/dl (31-36) 05/05/16 05:20 RDW 13 % (10.5-15) 05/05/16 05:20 Plt Count 179 10^3/ul (150-450) 05/05/16 05:20 MPV 8 um3 (7.4-10.4) 05/05/16 05:20 Neut % (Auto) 56.5 % (38-83) 05/05/16 05:20 Lymph % (Auto) 29.4 % (25-47) 05/05/16 05:20 Clarke % (Auto) 9.9 % (1-9) H 05/05/16 05:20 Eos % (Auto) 3.9 % (0-6) 05/05/16 05:20 Baso % (Auto) 0.3 % (0-2) 05/05/16 05:20 Absolute Neuts (auto) 3.2 10^3/ul (1.5-7.7) 05/05/16 05:20 Absolute Lymphs (auto) 1.6 10^3/ul (1.0-4.8) 05/05/16 05:20 Absolute Monos (auto) 0.6 10^3/ul (0-0.8) 05/05/16 05:20 Absolute Eos (auto) 0.2 10^3/ul (0-0.6) 05/05/16 05:20 Absolute Basos (auto) 0 10^3/ul (0-0.2) 05/05/16 05:20 Absolute Nucleated RBC 0 10^3/ul 05/05/16 05:20 Nucleated RBC % 0 05/05/16 05:20 ESR 18 mm/Hr (0-40) 05/05/16 06:05 Sodium 135 mmol/L (133-145) 05/05/16 05:20 Potassium 3.9 mmol/L (3.5-5.0) 05/05/16 05:20 Chloride 109 mmol/L (101-111) 05/05/16 05:20 Carbon Dioxide 23 mmol/L (22-32) 05/05/16 05:20 Anion Gap 3 mmol/L (2-11) 05/05/16 05:20 BUN 11 mg/dL (6-24) 05/05/16 05:20 Creatinine 0.88 mg/dL (0.51-0.95) 05/05/16 05:20 Est GFR ( Amer) 82.9 (>60) 05/05/16 05:20 Est GFR (Non-Af Amer) 64.5 (>60) 05/05/16 05:20 BUN/Creatinine Ratio 12.5 (8-20) 05/05/16 05:20 Glucose 93 mg/dL (70-100) 05/05/16 05:20 Lactic Acid 1.0 mmol/L (0.5-2.0) 05/04/16 12:35 Calcium 9.1 mg/dL (8.6-10.3) 05/05/16 05:20 Magnesium 2.0 mg/dL (1.9-2.7) 05/04/16 12:35 Total Bilirubin 0.60 mg/dL (0.2-1.0) 05/04/16 12:35 AST 16 U/L (13-39) 05/04/16 12:35 ALT 11 U/L (7-52) 05/04/16 12:35 Alkaline Phosphatase 57 U/L (34-104) 05/04/16 12:35 Troponin I 0.00 ng/mL (<0.04) 05/04/16 12:35 C-Reactive Protein 5.04 mg/L (< 5.00) H 05/05/16 06:05 Total Protein 7.1 g/dL (6.4-8.9) 05/04/16 12:35 Albumin 4.2 g/dL (3.2-5.2) 05/04/16 12:35 Globulin 2.9 g/dL (2-4) 05/04/16 12:35 Albumin/Globulin Ratio 1.4 (1-3) 05/04/16 12:35 Triglycerides 173 mg/dL 05/05/16 05:20 Cholesterol 260 mg/dL 05/05/16 05:20 LDL Cholesterol 176 mg/dL 05/05/16 05:20 HDL Cholesterol 49.6 mg/dL 05/05/16 05:20 TSH 1.57 mcIU/mL (0.34-5.60) 05/04/16 12:35 Urine Color Yellow 05/04/16 13:20 Urine Appearance Cloudy 05/04/16 13:20 Urine pH 5.0 (5-9) 05/04/16 13:20 Ur Specific [place] 1.012 (1.010-1.030) 05/04/16 13:20 Urine Protein Negative (Negative) 05/04/16 13:20 Urine Ketones Negative (Negative) 05/04/16 13:20 Urine Blood Negative (Negative) 05/04/16 13:20 Urine Nitrate Negative (Negative) 05/04/16 13:20 Urine Bilirubin Negative (Negative) 05/04/16 13:20 Urine Urobilinogen Negative (Negative) 05/04/16 13:20 Ur Leukocyte Esterase 3+ (Negative) H 05/04/16 13:20 Urine WBC (Auto) 2+(11-20/hpf) (Absent) H 05/04/16 13:20 Urine RBC (Auto) Absent (Absent) 05/04/16 13:20 Ur Squamous Epith Cells Present (Absent) H 05/04/16 13:20 Urine Bacteria 1+ (Absent) H 05/04/16 13:20 Urine Glucose Negative (Negative) 05/04/16 13:20 Fluid Source Cerebral spinal 05/05/16 14:15 Fluid Volume 2 mL 05/05/16 14:15 Fluid Color Colorless 05/05/16 14:15 Fluid Appearance Clear 05/05/16 14:15 Fluid WBC 1 /mcL 05/05/16 14:15 Fluid RBC 62 /mcL 05/05/16 14:15 Fluid Tot Cell Count 4 05/05/16 14:15 Fluid Lymphocytes 100 % 05/05/16 14:15 Fluid Other Cells 4 05/05/16 14:15 Fluid Comment 05/05/16 14:15 CSF Cell Count Tube # 4 05/05/16 14:15 CSF Glucose 69 mg/dL (40-70) 05/05/16 14:15 CSF Total Protein 43 mg/dL (15-45) 05/05/16 14:15 Syphilis IgG Antibody Nonreactive (Nonreactive) 05/05/16 12:28 Hepatitis A IgM Ab Nonreactive (Nonreactive) 05/05/16 12:28 Hep Bs Antigen Nonreactive (Nonreactive) 05/05/16 12:28 Hep B Core IgM Ab Nonreactive (Nonreactive) 05/05/16 12:28 Hepatitis C Antibody Nonreactive (Nonreactive) 05/05/16 12:28 Neurological exam is stable with no focal findings on exam. 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 The findings, including the CSF findings so far are negative to support the diagnosis of TERRAZZO INSTALLER vasculitis. I was wondering whether the patient needs DSA (4-vessel conventional angiogram). I called and spoke with vascular neurology at [facility], Dr. Villa who reviewed the images. We both agreed that this probably is probably just severe atherosclerotic changes. Dr. Villa suggested an MRI brain with contrast to see enhancement of the wall of the vessels in case of vasculitis. DSA does not seem to be necessary at this time. Carotid endarterectomy also does not seem to be indicated as the atherosclerotic changes are extensive and most of the embolic strokes seem in the territory of [place] secondary to atherosclerotic changes and also the findings are bilateral. Therefore, no clear indication for CEA. We both agreed that dual antiplatelet therapy at this time is the best treatment option. Will add Plavix to the full dose of Aspirin, which the patient should continue to take at least for 3 months and then may consider changing to monotherapy. Will continue the cardiac workup including TTE and MISSY.
[2016-05-06] MEDS: Nicotine Patch Removal NOTE PATCH OFF SCH (19:57)
[2016-05-06] MEDS: Cephalexin CAP* 250 MG PO SCH (19:57)
--- NOTE | 2016-05-06 23:38 | ED ---
Evette Alvarado Erika, scribed for Jaleel Mukherjee MD on 05/04/16 at 1217 . Dizziness - HPI Summary HPI Summary: Patient is a 65-year-old female presenting to the ED with a CC of feeling off- balance intermittently for a week. She reports that she has had multiple episodes describes as feeling off-balance and shaky, and that each episode lasts a few seconds. She denies vertigo, but states she just feels "wobbly." Last night and today, patient has experienced symptoms constantly while walking. Symptoms are not present while lying down. She states that in general, symptoms have been worse while standing, but patient also reports difficulty finding the foot rests in a wheelchair while sitting in the wheelchair due to the symptoms. Patient reports a Hx COPD and states she has been on prednisone since having an episode of difficulty breathing - she stopped 1 week ago after being on 3 rounds in the last 2 months. Currently, patient denies difficulty breathing. - History Of Current Complaint Chief Complaint: EDDizziness Stated Complaint: DIZZY, Time Seen by Provider: 05/04/16 12:04 Hx Obtained From: Patient Onset/Duration: Still Present Timing: Intermittent Episode Lasting - Seconds Severity Initially: Mild Severity Currently: Moderate Character: Weak - "off-balance and weak" Aggravating Factor(s): Supine To Erect Alleviating Factor(s): Lying Down Associated Signs And Symptoms: Negative: SOB - Allergies/Home Medications Allergies/Adverse Reactions: Allergies Allergy/AdvReac Type Severity Reaction Status Date / Time Latex Allergy Blisters Verified 03/14/16 06:54 PMH/Surg Hx/FS Hx/Imm Hx Endocrine/Hematology History: Denies: Hx Diabetes Cardiovascular History: Denies: Hx Congestive Heart Failure, Hx Hypertension, Hx Pacemaker/ICD Respiratory History: Reports: Hx Chronic Obstructive Pulmonary Disease (COPD) GI History: Reports: Other GI Disorders - DIVERTICULITIS History: Reports: Other Problems/Disorders - HX MILD RENAL INSUFFICIENCY Denies: Hx Renal Disease Musculoskeletal History: Reports: Other Musculoskeletal History - RHEUMATOID ARTHRITIS Sensory History: Reports: Hx Contacts or Glasses Denies: Hx Hearing Aid Opthamlomology History: Reports: Hx Contacts or Glasses Psychiatric History: Denies: Hx Panic Disorder - Surgical History Surgery Procedure, Year, and Place: HYSTERECTOMY, OOPHRECTOMY, APENDECTOMY, CHOLECYSTECTOMY,TONSILECTOMY,URINARY TRACT SURGERY Hx Anesthesia Reactions: No Infectious Disease History: No Infectious Disease History: Denies: Traveled Outside the [place] in Last 30 Days - Family History Known Family History: Positive: Cardiac Disease, Diabetes, Other - stroke - Social History Alcohol Use: None Hx Substance Use: No Substance Use Type: Reports: None Hx Tobacco Use: Yes Smoking Status (MU): Heavy Every Day Tobacco Smoker Type: Cigarettes Have You Smoked in the Last Year: Yes Review of Systems Negative: Shortness Of Breath Neurological: Other - off-balance, "wobbly" All Other Systems Reviewed And Are Negative: Yes Physical Exam Triage Information Reviewed: Yes Vital Signs On Initial Exam: Initial Vitals Temp Pulse Resp BP Pulse Ox 97.3 F 80 18 118/78 100 05/04/16 08:53 05/04/16 08:53 05/04/16 08:53 05/04/16 08:53 05/04/16 08:53 Vital Signs Reviewed: Yes Appearance: Positive: Well-Appearing, No Pain Distress Skin: Positive: Warm, Skin Color Reflects Adequate Perfusion, Dry Head/Face: Positive: Normal Head/Face Inspection Eyes: Positive: Normal ENT: Positive: Normal ENT inspection Neck: Positive: Supple, Nontender Respiratory/Lung Sounds: Positive: Clear to Auscultation, Breath Sounds Present Cardiovascular: Positive: RRR Abdomen Description: Positive: Nontender, Soft Bowel Sounds: Positive: Present Musculoskeletal: Positive: Normal Neurological: Positive: Normal, Other - No nystagmus, negative pronator drift Psychiatric: Positive: Affect/Mood Appropriate - Brant Coma Scale Coma Scale Total: 15 Diagnostics - Vital Signs Vital Signs Temp Pulse Resp BP Pulse Ox 05/04/16 10:36 83 23 94 05/04/16 10:34 130/79 05/04/16 08:53 97.3 F 80 18 118/78 100 - Laboratory Lab Results: Lab Results 05/04/16 05/04/16 05/04/16 Range/Units 12:35 12:35 12:35 WBC 5.9 (3.5-10.8) 10^3/ul RBC 4.59 (4.0-5.4) 10^6/ul Hgb 15.2 (12.0-16.0) g/dl Hct 45 (35-47) % MCV 98 H (80-97) fL MCH 33 H (27-31) pg MCHC 34 (31-36) g/dl RDW 13 (10.5-15) % Plt Count 195 (150-450) 10^3/ul MPV 8 (7.4-10.4) um3 Neut % (Auto) 61.6 (38-83) % Lymph % (Auto) 24.8 L (25-47) % Powell % (Auto) 9.4 H (1-9) % Eos % (Auto) 3.6 (0-6) % Baso % (Auto) 0.6 (0-2) % Absolute Neuts (auto) 3.6 (1.5-7.7) 10^3/ul Absolute Lymphs (auto) 1.5 (1.0-4.8) 10^3/ul Absolute Monos (auto) 0.6 (0-0.8) 10^3/ul Absolute Eos (auto) 0.2 (0-0.6) 10^3/ul Absolute Basos (auto) 0 (0-0.2) 10^3/ul Absolute Nucleated RBC 0 10^3/ul Nucleated RBC % 0.1 ESR (0-40) mm/Hr Sodium 136 (133-145) mmol/L Potassium 4.0 (3.5-5.0) mmol/L Chloride 105 (101-111) mmol/L Carbon Dioxide 26 (22-32) mmol/L Anion Gap 5 (2-11) mmol/L BUN 15 (6-24) mg/dL Creatinine 0.87 (0.51-0.95) mg/dL Est GFR ( Amer) 84.0 (>60) Est GFR (Non-Af Amer) 65.3 (>60) BUN/Creatinine Ratio 17.2 (8-20) Glucose 106 H (70-100) mg/dL Lactic Acid 1.0 (0.5-2.0) mmol/L Calcium 9.6 (8.6-10.3) mg/dL Magnesium 2.0 (1.9-2.7) mg/dL Total Bilirubin 0.60 (0.2-1.0) mg/dL AST 16 (13-39) U/L ALT 11 (7-52) U/L Alkaline Phosphatase 57 (34-104) U/L Troponin I 0.00 (<0.04) ng/mL C-Reactive Protein (< 5.00) mg/L Total Protein 7.1 (6.4-8.9) g/dL Albumin 4.2 (3.2-5.2) g/dL Globulin 2.9 (2-4) g/dL Albumin/Globulin Ratio 1.4 (1-3) Triglycerides mg/dL Cholesterol mg/dL LDL Cholesterol mg/dL HDL Cholesterol mg/dL TSH 1.57 (0.34-5.60) mcIU/mL Urine Color Urine Appearance Urine pH (5-9) Ur Specific Mart (1.010-1.030) Urine Protein (Negative) Urine Ketones (Negative) Urine Blood (Negative) Urine Nitrate (Negative) Urine Bilirubin (Negative) Urine Urobilinogen (Negative) Ur Leukocyte Esterase (Negative) Urine WBC (Auto) (Absent) Urine RBC (Auto) (Absent) Ur Squamous Epith Cells (Absent) Urine Bacteria (Absent) Urine Glucose (Negative) Fluid Source Fluid Volume mL Fluid Color Fluid Appearance Fluid WBC /mcL Fluid RBC /mcL Fluid Tot Cell Count Fluid Lymphocytes % Fluid Other Cells Fluid Cell Count Rvw By Fluid Comment CSF Cell Count Tube # CSF Glucose (40-70) mg/dL CSF Total Protein (15-45) mg/dL Syphilis IgG Antibody (Nonreactive) Hepatitis A IgM Ab (Nonreactive) Hep Bs Antigen (Nonreactive) Hep B Core IgM Ab (Nonreactive) Hepatitis C Antibody (Nonreactive) 05/04/16 05/05/16 05/05/16 Range/Units 13:20 05:20 05:20 WBC 5.6 (3.5-10.8) 10^3/ul RBC 4.20 (4.0-5.4) 10^6/ul Hgb 13.7 (12.0-16.0) g/dl Hct 41 (35-47) % MCV 98 H (80-97) fL MCH 33 H (27-31) pg MCHC 33 (31-36) g/dl RDW 13 (10.5-15) % Plt Count 179 (150-450) 10^3/ul MPV 8 (7.4-10.4) um3 Neut % (Auto) 56.5 (38-83) % Lymph % (Auto) 29.4 (25-47) % Powell % (Auto) 9.9 H (1-9) % Eos % (Auto) 3.9 (0-6) % Baso % (Auto) 0.3 (0-2) % Absolute Neuts (auto) 3.2 (1.5-7.7) 10^3/ul Absolute Lymphs (auto) 1.6 (1.0-4.8) 10^3/ul Absolute Monos (auto) 0.6 (0-0.8) 10^3/ul Absolute Eos (auto) 0.2 (0-0.6) 10^3/ul Absolute Basos (auto) 0 (0-0.2) 10^3/ul Absolute Nucleated RBC 0 10^3/ul Nucleated RBC % 0 ESR (0-40) mm/Hr Sodium 135 (133-145) mmol/L Potassium 3.9 (3.5-5.0) mmol/L Chloride 109 (101-111) mmol/L Carbon Dioxide 23 (22-32) mmol/L Anion Gap 3 (2-11) mmol/L BUN 11 (6-24) mg/dL Creatinine 0.88 (0.51-0.95) mg/dL Est GFR ( Amer) 82.9 (>60) Est GFR (Non-Af Amer) 64.5 (>60) BUN/Creatinine Ratio 12.5 (8-20) Glucose 93 (70-100) mg/dL Lactic Acid (0.5-2.0) mmol/L Calcium 9.1 (8.6-10.3) mg/dL Magnesium (1.9-2.7) mg/dL Total Bilirubin (0.2-1.0) mg/dL AST (13-39) U/L ALT (7-52) U/L Alkaline Phosphatase (34-104) U/L Troponin I (<0.04) ng/mL C-Reactive Protein (< 5.00) mg/L Total Protein (6.4-8.9) g/dL Albumin (3.2-5.2) g/dL Globulin (2-4) g/dL Albumin/Globulin Ratio (1-3) Triglycerides 173 mg/dL Cholesterol 260 mg/dL LDL Cholesterol 176 mg/dL HDL Cholesterol 49.6 mg/dL TSH (0.34-5.60) mcIU/mL Urine Color Yellow Urine Appearance Cloudy Urine pH 5.0 (5-9) Ur Specific Mart 1.012 (1.010-1.030) Urine Protein Negative (Negative) Urine Ketones Negative (Negative) Urine Blood Negative (Negative) Urine Nitrate Negative (Negative) Urine Bilirubin Negative (Negative) Urine Urobilinogen Negative (Negative) Ur Leukocyte Esterase 3+ H (Negative) Urine WBC (Auto) 2+(11-20/hpf) H (Absent) Urine RBC (Auto) Absent (Absent) Ur Squamous Epith Cells Present H (Absent) Urine Bacteria 1+ H (Absent) Urine Glucose Negative (Negative) Fluid Source Fluid Volume mL Fluid Color Fluid Appearance Fluid WBC /mcL Fluid RBC /mcL Fluid Tot Cell Count Fluid Lymphocytes % Fluid Other Cells Fluid Cell Count Rvw By Fluid Comment CSF Cell Count Tube # CSF Glucose (40-70) mg/dL CSF Total Protein (15-45) mg/dL Syphilis IgG Antibody (Nonreactive) Hepatitis A IgM Ab (Nonreactive) Hep Bs Antigen (Nonreactive) Hep B Core IgM Ab (Nonreactive) Hepatitis C Antibody (Nonreactive) 05/05/16 05/05/16 05/05/16 Range/Units 06:05 06:05 12:28 WBC (3.5-10.8) 10^3/ul RBC (4.0-5.4) 10^6/ul Hgb (12.0-16.0) g/dl Hct (35-47) % MCV (80-97) fL MCH (27-31) pg MCHC (31-36) g/dl RDW (10.5-15) % Plt Count (150-450) 10^3/ul MPV (7.4-10.4) um3 Neut % (Auto) (38-83) % Lymph % (Auto) (25-47) % Powell % (Auto) (1-9) % Eos % (Auto) (0-6) % Baso % (Auto) (0-2) % Absolute Neuts (auto) (1.5-7.7) 10^3/ul Absolute Lymphs (auto) (1.0-4.8) 10^3/ul Absolute Monos (auto) (0-0.8) 10^3/ul Absolute Eos (auto) (0-0.6) 10^3/ul Absolute Basos (auto) (0-0.2) 10^3/ul Absolute Nucleated RBC 10^3/ul Nucleated RBC % ESR 18 (0-40) mm/Hr Sodium (133-145) mmol/L Potassium (3.5-5.0) mmol/L Chloride (101-111) mmol/L Carbon Dioxide (22-32) mmol/L Anion Gap (2-11) mmol/L BUN (6-24) mg/dL Creatinine (0.51-0.95) mg/dL Est GFR ( Amer) (>60) Est GFR (Non-Af Amer) (>60) BUN/Creatinine Ratio (8-20) Glucose (70-100) mg/dL Lactic Acid (0.5-2.0) mmol/L Calcium (8.6-10.3) mg/dL Magnesium (1.9-2.7) mg/dL Total Bilirubin (0.2-1.0) mg/dL AST (13-39) U/L ALT (7-52) U/L Alkaline Phosphatase (34-104) U/L Troponin I (<0.04) ng/mL C-Reactive Protein 5.04 H (< 5.00) mg/L Total Protein (6.4-8.9) g/dL Albumin (3.2-5.2) g/dL Globulin (2-4) g/dL Albumin/Globulin Ratio (1-3) Triglycerides mg/dL Cholesterol mg/dL LDL Cholesterol mg/dL HDL Cholesterol mg/dL TSH (0.34-5.60) mcIU/mL Urine Color Urine Appearance Urine pH (5-9) Ur Specific Mart (1.010-1.030) Urine Protein (Negative) Urine Ketones (Negative) Urine Blood (Negative) Urine Nitrate (Negative) Urine Bilirubin (Negative) Urine Urobilinogen (Negative) Ur Leukocyte Esterase (Negative) Urine WBC (Auto) (Absent) Urine RBC (Auto) (Absent) Ur Squamous Epith Cells (Absent) Urine Bacteria (Absent) Urine Glucose (Negative) Fluid Source Fluid Volume mL Fluid Color Fluid Appearance Fluid WBC /mcL Fluid RBC /mcL Fluid Tot Cell Count Fluid Lymphocytes % Fluid Other Cells Fluid Cell Count Rvw By Fluid Comment CSF Cell Count Tube # CSF Glucose (40-70) mg/dL CSF Total Protein (15-45) mg/dL Syphilis IgG Antibody Nonreactive (Nonreactive) Hepatitis A IgM Ab Nonreactive (Nonreactive) Hep Bs Antigen Nonreactive (Nonreactive) Hep B Core IgM Ab Nonreactive (Nonreactive) Hepatitis C Antibody Nonreactive (Nonreactive) 05/05/16 05/05/16 Range/Units 14:15 14:15 WBC (3.5-10.8) 10^3/ul RBC (4.0-5.4) 10^6/ul Hgb (12.0-16.0) g/dl Hct (35-47) % MCV (80-97) fL MCH (27-31) pg MCHC (31-36) g/dl RDW (10.5-15) % Plt Count (150-450) 10^3/ul MPV (7.4-10.4) um3 Neut % (Auto) (38-83) % Lymph % (Auto) (25-47) % Powell % (Auto) (1-9) % Eos % (Auto) (0-6) % Baso % (Auto) (0-2) % Absolute Neuts (auto) (1.5-7.7) 10^3/ul Absolute Lymphs (auto) (1.0-4.8) 10^3/ul Absolute Monos (auto) (0-0.8) 10^3/ul Absolute Eos (auto) (0-0.6) 10^3/ul Absolute Basos (auto) (0-0.2) 10^3/ul Absolute Nucleated RBC 10^3/ul Nucleated RBC % ESR (0-40) mm/Hr Sodium (133-145) mmol/L Potassium (3.5-5.0) mmol/L Chloride (101-111) mmol/L Carbon Dioxide (22-32) mmol/L Anion Gap (2-11) mmol/L BUN (6-24) mg/dL Creatinine (0.51-0.95) mg/dL Est GFR ( Amer) (>60) Est GFR (Non-Af Amer) (>60) BUN/Creatinine Ratio (8-20) Glucose (70-100) mg/dL Lactic Acid (0.5-2.0) mmol/L Calcium (8.6-10.3) mg/dL Magnesium (1.9-2.7) mg/dL Total Bilirubin (0.2-1.0) mg/dL AST (13-39) U/L ALT (7-52) U/L Alkaline Phosphatase (34-104) U/L Troponin I (<0.04) ng/mL C-Reactive Protein (< 5.00) mg/L Total Protein (6.4-8.9) g/dL Albumin (3.2-5.2) g/dL Globulin (2-4) g/dL Albumin/Globulin Ratio (1-3) Triglycerides mg/dL Cholesterol mg/dL LDL Cholesterol mg/dL HDL Cholesterol mg/dL TSH (0.34-5.60) mcIU/mL Urine Color Urine Appearance Urine pH (5-9) Ur Specific Mart (1.010-1.030) Urine Protein (Negative) Urine Ketones (Negative) Urine Blood (Negative) Urine Nitrate (Negative) Urine Bilirubin (Negative) Urine Urobilinogen (Negative) Ur Leukocyte Esterase (Negative) Urine WBC (Auto) (Absent) Urine RBC (Auto) (Absent) Ur Squamous Epith Cells (Absent) Urine Bacteria (Absent) Urine Glucose (Negative) Fluid Source Cerebral spinal Fluid Volume 2 mL Fluid Color Colorless Fluid Appearance Clear Fluid WBC 1 /mcL Fluid RBC 62 /mcL Fluid Tot Cell Count 4 Fluid Lymphocytes 100 % Fluid Other Cells 4 Fluid Cell Count Rvw By Pending Fluid Comment CSF Cell Count Tube # 4 CSF Glucose 69 (40-70) mg/dL CSF Total Protein 43 (15-45) mg/dL Syphilis IgG Antibody (Nonreactive) Hepatitis A IgM Ab (Nonreactive) Hep Bs Antigen (Nonreactive) Hep B Core IgM Ab (Nonreactive) Hepatitis C Antibody (Nonreactive) Result Diagrams: 05/05/16 05:20 05/05/16 05:20 Lab Statement: Any lab studies that have been ordered have been reviewed, and results considered in the medical decision making process. - CT Brain CT CT Interpretation Completed By: Radiologist - IMPRESSION: When compared to the July 03, 2008 CT of the brain there are age indeterminant infarctions involving the right frontal lobe white matter tracts and left caudate head nucleus. If the patient is exhibiting focal neurologic deficits then further characterization can be obtained with MRI of the brain. - EKG 14:26 Cardiac Rate: NL - at 74 bpm EKG Rhythm: Sinus Rhythm - Additional Comments Diagnostic Additional Comments: Brain MRI read by radiologist - IMPRESSION: TINY FOCI OF RESTRICTED DIFFUSION IN BOTH CEREBRAL HEMISPHERES MOST CONSISTENT WITH ACUTE ISCHEMIA LIKELY FROM EMBOLIC PHENOMENA. 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 Dizzy Course/Dx - Course Course Of Treatment: Ms. Sanders presented with some intermittent balance problems and a CT was questionable for CVA and recommended MRI. The MRI was positive for CVA and she was admitted. - Diagnoses Provider Diagnoses: CVA (cerebral vascular accident) - Provider Notifications Discussed Care Of Patient with: Dr. Garcia (neurology) at 16:49 - notified of abnormal Brain CT. Dr. Phan (hospitalist) at 16:49 - agrees to admit Discharge - Discharge Plan Condition: Stable Disposition: ADMITTED TO [facility] documentation as recorded by the Evette marte Erika accurately reflects the service I personally performed and the decisions made by , Jaleel Mukherjee MD.
[2016-05-07] MEDS: Heparin VIAL(*) 5000 UNITS/ML VIAL (FIVE THOUSAND) SUBCUT SCH (05:59)
[2016-05-07] MEDS: Clopidogrel TAB* 75 MG PO SCH (08:21)
[2016-05-07] MEDS: Metoprolol Tartrate TAB* 50 mg PO SCH (08:21)
[2016-05-07] MEDS: Aspirin EC TAB* 325 MG PO SCH (08:21)
[2016-05-07] MEDS: Nicotine PATCH 14 MG/24 HR* PATCH TRANSDERM SCH (08:22)
[2016-05-07] MEDS: CMCS: OMEGA-3 FATTY ACIDS (NF) 1,000 MG CAP PO SCH (08:22)
[2016-05-07] MEDS: Cephalexin CAP* 250 MG PO SCH (08:22)
[2016-05-07] MEDS: Tiotropium CAP.INH* CAP.INH/18 MCG (USE ORDER SET !) INH SCH (09:08)
[2016-05-07] MEDS: Spiriva Inhaler DEVICE* 1 EACH DEVICE INH SCH (09:08)
[2016-05-07] MEDS: Spironolactone TAB* 25 MG PO SCH (09:08)
[2016-05-07] MEDS: Mometasone/Formoter 200/5 MDI INH SCH (09:09)
[2016-05-07 10:07] LABS: BUN/Creatinine Ratio 13.4 (8-20); Calcium 9.9 mg/dL (8.6-10.3); EGFR African American 74.1 (>60); EGFR Non-African American 57.6 (>60); Potassium 4.5 mmol/L (3.5-5.0)
[2016-05-07] MEDS ORDERED: Gadobenate* (CONTRAST) 529 MG/ML 10 ML SDV IV ONE (10:45)
--- NOTE | 2016-05-07 11:35 | RAD ---
HISTORY: Vasculitis, evaluate for enhancement COMPARISONS: May 04, 2016 TECHNIQUE: The following sequences were obtained of the head: Following sequences were obtained of the brain: Sagittal, axial, and coronal T1-weighted images after contrast enhancement with a gadolinium-based intravenous contrast agent. Please note the study is read in conjunction with the MRI of May 04, 2016 FINDINGS: HEMORRHAGE/INFARCT: There is no hemorrhage or acute infarct. MASSES/SHIFT: There is no mass or shift. EXTRA-AXIAL SPACES/MENINGES: There are no extra-axial fluid collections. SULCI AND VENTRICLES: The sulci and ventricles are normal in size and position for the patient's stated age. CEREBRUM: There is multifocal enhancement of the cerebral hemispheres bilaterally corresponding to some of the white matter lesions noted on the previous examination. 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 BRAINSTEM: There are no focal parenchymal abnormalities. CEREBELLUM: There are no focal parenchymal abnormalities. The cerebellar tonsils are normal in size and position. SELLA: The sella is normal. PINEAL: The pineal region is clear. CP ANGLE/TEMPORAL BONES: The labyrinthine structures are grossly normal. VESSELS: Normal flow-voids are noted within the visualized vertebral vasculature. DIFFUSION ABNORMALITIES: No diffusion-weighted images are submitted. PARANASAL SINUSES/MASTOIDS: The paranasal sinuses are clear. ORBITS: The orbits are unremarkable. BONES AND SOFT TISSUE: No bone or soft tissue abnormalities are noted. OTHER: None IMPRESSION: THERE IS MULTIFOCAL ENHANCEMENT CORRESPONDING TO SOME OF THE WHITE MATTER LESIONS NOTED ON PREVIOUS EXAMINATION. THE DIFFERENTIAL INCLUDES ENHANCEMENT IN THE SETTING OF SUBACUTE INFARCT, ENHANCEMENT IN THE SETTING OF VASCULITIS, OR ACTIVE INFLAMMATION THE SETTING OF AN ACUTE DEVELOPING PROCESS, WHICH MAY ALSO OCCASIONALLY EXHIBIT RESTRICTED DIFFUSION. ALSO WITHIN THE DIFFERENTIAL, BUT CONSIDERED LESS LIKELY IN THE ABSENCE OF A HISTORY OF MALIGNANCY, IS METASTATIC DISEASE TO THE BRAIN
[2016-05-07] MEDS ORDERED: Flumazenil* 0.1 MG/ML 5 ML MDV ONE (13:08)
[2016-05-07] MEDS ORDERED: Naloxone* 0.4 MG/ML 1 ML VIAL ONE (13:08)
[2016-05-07] MEDS ORDERED: Lidocaine 2% VISCOUS* 15 ML UDC ONE (13:08)
[2016-05-07] MEDS ORDERED: Midazolam* 1 MG/ML 5 ML VIAL (5 MG) ONE (13:08)
[2016-05-07] MEDS ORDERED: fentaNYL* 50 MCG/ML 2 ML VIAL (100 MCG VIAL) ONE (13:08)
[2016-05-07 13:51] LABS: U1 RNP IgG Autoabs <0.2 U
[2016-05-07 13:55] LABS: Rheumatoid Factor <15 IU/mL (<15)
--- NOTE | 2016-05-07 14:44 | PN ---
Progress Note - Progress Note SOAP: Neurology progress note Date of service 05/07/16 Subjective: [] Objective: Vital Signs Temp Pulse Resp BP Pulse Ox 97.8 F 77 16 112/70 100 05/07/16 07:55 05/07/16 07:55 05/07/16 08:00 05/07/16 07:55 05/07/16 07:55 Current Medications Acetaminophen (Tylenol Tab*) 650 mg PO Q4H PRN PRN Reason: PAIN Albuterol (Ventolin Hfa Inhaler*) 2 puff INH Q4HR PRN PRN Reason: SOB/WHEEZING Last Admin: 05/05/16 07:45 Dose: 2 puff Aspirin (Ecotrin Ec Tab*) 325 mg PO DAILY [facility] Last Admin: 05/07/16 08:21 Dose: 325 mg Cephalexin HCl (Keflex Cap*) 250 mg PO QID [facility] Last Admin: 05/07/16 08:22 Dose: 250 mg Clopidogrel Bisulfate (Plavix Tab*) 75 mg PO DAILY [facility] Last Admin: 05/07/16 08:21 Dose: 75 mg Device (Tiotropium Inhaler Device*) 1 each INH DAILY [facility] Last Admin: 05/07/16 09:08 Dose: 1 each Diphenhydramine HCl (Benadryl Po*) 25 mg PO Q6H PRN PRN Reason: Itching/Rash Last Admin: 05/06/16 21:27 Dose: 25 mg Fish Oil (Fish Oil (Nf)) 1,000 mg PO TID [facility] PRN Reason: Protocol Last Admin: 05/07/16 08:22 Dose: 1,000 mg Heparin Sodium (Porcine) (Heparin Vial(*)) 5,000 units SUBCUT Q8HR [facility] Last Admin: 05/07/16 05:59 Dose: 5,000 units Hydroxyzine HCl (Atarax Tab*) 25 mg PO Q6H PRN PRN Reason: ITCHING Last Admin: 05/06/16 09:25 Dose: 25 mg Metoprolol Tartrate (Lopressor Tab*) 50 mg PO BID WITH MEALS [facility] Last Admin: 05/07/16 08:21 Dose: 50 mg Mometasone Furoate/Formoterol Fumar (Dulera 200/5 Mdi*) 2 puff INH BID [facility] Last Admin: 05/07/16 09:09 Dose: 2 puff Nicotine (Nicotine Patch 14 Mg/24 Hr*) 1 patch TRANSDERM Q24H [facility] Last Admin: 05/07/16 08:22 Dose: 1 patch Pharmacy Profile Note (Nicotine Patch Removal Note*) 1 note PATCH OFF 2100 [facility] Last Admin: 05/06/16 19:57 Dose: 1 note Spironolactone (Aldactone Tab*) 25 mg PO BID [facility] Last Admin: 05/07/16 09:08 Dose: 25 mg Tiotropium [place] (Spiriva Cap.Inh*) 1 cap INH DAILY [facility] Last Admin: 05/07/16 09:08 Dose: 1 cap Laboratory Last Values WBC 5.6 10^3/ul (3.5-10.8) 05/05/16 05:20 RBC 4.20 10^6/ul (4.0-5.4) 05/05/16 05:20 Hgb 13.7 g/dl (12.0-16.0) 05/05/16 05:20 Hct 41 % (35-47) 05/05/16 05:20 MCV 98 fL (80-97) H 05/05/16 05:20 MCH 33 pg (27-31) H 05/05/16 05:20 MCHC 33 g/dl (31-36) 05/05/16 05:20 RDW 13 % (10.5-15) 05/05/16 05:20 Plt Count 179 10^3/ul (150-450) 05/05/16 05:20 MPV 8 um3 (7.4-10.4) 05/05/16 05:20 Neut % (Auto) 56.5 % (38-83) 05/05/16 05:20 Lymph % (Auto) 29.4 % (25-47) 05/05/16 05:20 [place] % (Auto) 9.9 % (1-9) H 05/05/16 05:20 Eos % (Auto) 3.9 % (0-6) 05/05/16 05:20 Baso % (Auto) 0.3 % (0-2) 05/05/16 05:20 Absolute Neuts (auto) 3.2 10^3/ul (1.5-7.7) 05/05/16 05:20 Absolute Lymphs (auto) 1.6 10^3/ul (1.0-4.8) 05/05/16 05:20 Absolute Monos (auto) 0.6 10^3/ul (0-0.8) 05/05/16 05:20 Absolute Eos (auto) 0.2 10^3/ul (0-0.6) 05/05/16 05:20 Absolute Basos (auto) 0 10^3/ul (0-0.2) 05/05/16 05:20 Absolute Nucleated RBC 0 10^3/ul 05/05/16 05:20 Nucleated RBC % 0 05/05/16 05:20 ESR 18 mm/Hr (0-40) 05/05/16 06:05 Sodium 134 mmol/L (133-145) 05/07/16 09:20 Potassium 4.5 mmol/L (3.5-5.0) 05/07/16 09:20 Chloride 101 mmol/L (101-111) 05/07/16 09:20 Carbon Dioxide 26 mmol/L (22-32) 05/07/16 09:20 Anion Gap 7 mmol/L (2-11) 05/07/16 09:20 BUN 13 mg/dL (6-24) 05/07/16 09:20 Creatinine 0.97 mg/dL (0.51-0.95) H 05/07/16 09:20 Est GFR ( Amer) 74.1 (>60) 05/07/16 09:20 Est GFR (Non-Af Amer) 57.6 (>60) 05/07/16 09:20 BUN/Creatinine Ratio 13.4 (8-20) 05/07/16 09:20 Glucose 103 mg/dL (70-100) H 05/07/16 09:20 Lactic Acid 1.0 mmol/L (0.5-2.0) 05/04/16 12:35 Calcium 9.9 mg/dL (8.6-10.3) 05/07/16 09:20 Magnesium 2.0 mg/dL (1.9-2.7) 05/04/16 12:35 Total Bilirubin 0.60 mg/dL (0.2-1.0) 05/04/16 12:35 AST 16 U/L (13-39) 05/04/16 12:35 ALT 11 U/L (7-52) 05/04/16 12:35 Alkaline Phosphatase 57 U/L (34-104) 05/04/16 12:35 Troponin I 0.00 ng/mL (<0.04) 05/04/16 12:35 C-Reactive Protein 5.04 mg/L (< 5.00) H 05/05/16 06:05 Total Protein 7.1 g/dL (6.4-8.9) 05/04/16 12:35 Albumin 4.2 g/dL (3.2-5.2) 05/04/16 12:35 Globulin 2.9 g/dL (2-4) 05/04/16 12:35 Albumin/Globulin Ratio 1.4 (1-3) 05/04/16 12:35 Triglycerides 173 mg/dL 05/05/16 05:20 Cholesterol 260 mg/dL 05/05/16 05:20 LDL Cholesterol 176 mg/dL 05/05/16 05:20 HDL Cholesterol 49.6 mg/dL 05/05/16 05:20 TSH 1.57 mcIU/mL (0.34-5.60) 05/04/16 12:35 Urine Color Yellow 05/04/16 13:20 Urine Appearance Cloudy 05/04/16 13:20 Urine pH 5.0 (5-9) 05/04/16 13:20 Ur Specific [place] 1.012 (1.010-1.030) 05/04/16 13:20 Urine Protein Negative (Negative) 05/04/16 13:20 Urine Ketones Negative (Negative) 05/04/16 13:20 Urine Blood Negative (Negative) 05/04/16 13:20 Urine Nitrate Negative (Negative) 05/04/16 13:20 Urine Bilirubin Negative (Negative) 05/04/16 13:20 Urine Urobilinogen Negative (Negative) 05/04/16 13:20 Ur Leukocyte Esterase 3+ (Negative) H 05/04/16 13:20 Urine WBC (Auto) 2+(11-20/hpf) (Absent) H 05/04/16 13:20 Urine RBC (Auto) Absent (Absent) 05/04/16 13:20 Ur Squamous Epith Cells Present (Absent) H 05/04/16 13:20 Urine Bacteria 1+ (Absent) H 05/04/16 13:20 Urine Glucose Negative (Negative) 05/04/16 13:20 Fluid Source Cerebral spinal 02/18/17 14:15 Fluid Volume 2 mL 05/05/16 14:15 Fluid Color Colorless 05/05/16 14:15 Fluid Appearance Clear 05/05/16 14:15 Fluid WBC 1 /mcL 05/05/16 14:15 Fluid RBC 62 /mcL 05/05/16 14:15 Fluid Tot Cell Count 4 05/05/16 14:15 Fluid Lymphocytes 100 % 05/05/16 14:15 Fluid Other Cells 4 05/05/16 14:15 Fluid Comment 05/05/16 14:15 CSF Cell Count Tube # 4 05/05/16 14:15 CSF Glucose 69 mg/dL (40-70) 05/05/16 14:15 CSF Total Protein 43 mg/dL (15-45) 05/05/16 14:15 Rheumatoid Factor <15 IU/mL (<15) 05/05/16 06:05 U1-nRNP Antibody <0.2 U 05/05/16 12:28 Syphilis IgG Antibody Nonreactive (Nonreactive) 05/05/16 12:28 Hepatitis A IgM Ab Nonreactive (Nonreactive) 05/05/16 12:28 Hep Bs Antigen Nonreactive (Nonreactive) 05/05/16 12:28 Hep B Core IgM Ab Nonreactive (Nonreactive) 05/05/16 12:28 Hepatitis C Antibody Nonreactive (Nonreactive) 05/05/16 12:28 Neurological exam is unchanged compared to the previous day. 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 Primary suspicion that was present for [employer] vasculitis is not finding supportive evidence. She is on dual antiplatelet therapy which she should continue at least for 3 months. The repeat MRI with contrast today showed some enhancement of the lesions; a differential diagnosis of metastasis was brought up by the radiologist. This is very unlikely given the location of the lesion and also the extensive vascular atherosclerotic changes. The patient, however, will have a close follow up with her PCP for screening of chest and abdomen given her history of smoking. Counseled the patient about life style changes in quiting smoking and change in diet. she is allergic to statins. Therefore, cholesterol need to be lowered with change in diet and exercise and maybe fibrate medications (which are not as effective as statins). Time at bedside 45 minutes discussing the above including the differential diagnosis and counseling about life style changes.
[2016-05-07 15:16] LABS: Complement C3 108 mg/dL (75 - 175)
--- NOTE | 2016-05-07 15:45 | DCNOTE ---
Patient seen prior and after MISSY. No new complaints. On exam, RRR, s1 and s2 present, no m/g/r, abd soft, NTND, BS+, no LE edema Discussed findings of MRI and MISSY with the patient. Will discharge home on ASA/ Plavix. No indication for AC. Do not feel metastatic malignant disease is likely , patient can discuss further with PCP to decide if any further testing is necessary. F/U with Neurology as outpatient as well.
[2016-05-07 16:00] LABS: SS-B/La Antibody 0.2 U
[2016-05-07 16:24] VITALS: BP 96/58
--- NOTE | 2016-05-07 17:01 | TEE ---
Patient: TATIANA MARTINEZ [facility] Rec#: [id number] : 1950 Date: 05/07/2016 Age: 65y Height: 162.56 cm / 64.0 in Weight: 58.97 kg / 130.0 lbs Sex: F BSA: 1.63 Room#: [facility] Type: Inpatient Referring: ROE SAMSON MD Performing: Bret Felix MD Reading: Bret Felix MD Recycler: Ysabel Campa RDCS Nurse: Sabine Gonzales RN CC: Claire Kelley MD Transesophageal Echocardiogram Indication: CVA BP: 121/61 HR: 74 Rhythm: NSR Findings History: CVA,smoker,HTN with rx,+ family history. Technical Comments: The study quality is good. Left Ventricle: The left ventricular chamber size is normal. Global left ventricular wall motion and contractility are within normal limits. There is normal left ventricular systolic function. The estimated ejection fraction is 55-60%. Left Atrium: The left atrial chamber size is normal. There is no thrombus visualized in the left atrial appendage. Right Ventricle: The right ventricular cavity size is normal. The right ventricular global systolic function is normal. Right Atrium: The right atrial cavity size is normal. There is no patent foramen ovale visualized. A patent foramen ovale is not demonstrated with color Doppler and agitated contrast. Aortic Valve: The aortic valve is trileaflet. There is no evidence of aortic regurgitation. There is no evidence of aortic stenosis. Lambl's excressences are noted in the long axis view. Mitral Valve: The mitral valve leaflets appear normal. There is a trace of mitral regurgitation. There is no evidence of mitral stenosis. Tricuspid Valve: The tricuspid valve leaflets are normal. There is trace tricuspid regurgitation. There is no tricuspid stenosis. Pulmonic Valve: The pulmonic valve appears normal. There is a trace pulmonic regurgitation. There is no pulmonic stenosis. Pericardium: The pericardium appears normal. Aorta: There is no dilatation of the ascending aorta. There is no dilation of the aortic root. There is plaque visualized in the descending aorta. Pulmonary Artery: The main pulmonary artery appears normal. Venous: The bicaval view was obtained and appears normal. The pulmonary veins appear normal in size. 1 out of 4 seen. The flow pattern of the pulmonary veins appear normal. MISSY Procedures: History and physical as well as labs were reviewed. The patient was in a fasting state. Risks and benefits of the procedure, including alternatives, were discussed and written informed consent was obtained. The patient and/or their health care leasing representative expressed understanding of the procedure, risks and benefits. Baseline and continuous monitoring of blood pressure, heart rate, pulse oximetry and heart rhythm was performed throughout the procedure. The appropriate time-out procedure was performed as per [facility] protocol. The patient was placed in the left lateral decubitus position. The patient's posterior pharynx was anesthetized with 20ml of 2% viscous lidocaine. The patient received IV Midazolam with a total dose of 3mg. The patient received IV Fentanyl with a total dose of 50mcg. An oral bite block was inserted for protection of oral dentition. The multiplane transesophageal echocardiogram probe was inserted through the posterior oropharynx and advanced into the esophagus without difficulty. Multiple 2D images were obtained of the heart and its related structures. Color flow Doppler was used for evaluation. Spectral Doppler was also used. The atrial septum was interrogated with color flow Doppler. At the conclusion of the procedure the probe was removed with continuous suction without complications. The patient tolerated the procedure with no apparent complications. Contrast: Normal saline was used as contrast for the bubble study. Intravenous contrast was used to help determine presence of intracardiac shunting. Conclusions Global left ventricular wall motion and contractility are within normal limits. There is normal left ventricular systolic function. The left ventricular chamber size is normal. The estimated ejection fraction is 55-60%. There is no thrombus visualized in the left atrial appendage. A patent foramen ovale is not demonstrated with color Doppler and agitated contrast. There is no evidence of aortic stenosis. Lambl's excressences are noted in the long axis view. There is no evidence of aortic regurgitation. There is a trace of mitral regurgitation. There is trace tricuspid regurgitation. The pericardium appears normal. There is no dilatation of the ascending aorta. There is plaque visualized in the descending aorta. Measurements Name Value Normal Range Aortic Annulus 2 cm (1.4 - 2.6) Ao root diameter (2D) 3.2 cm (2.1 - 3.5) Ascending Ao 2.7 cm (2.1 - 3.4) Name Value Normal Range MV E-wave Vmax 0.6 m/sec - MV deceleration time 203 msec - MV A-wave Vmax 1 m/sec - MV E:A ratio 0.59 ratio -
[2016-05-07 17:02] LABS: Albumin 3.1 g/dL (3.4-4.7); Gamma Globulin 0.8 g/dL (0.6-1.6); Total Protein(PEP) 6.1 g/dL (6.3 - 7.9)
--- NOTE | 2016-05-08 04:43 | DS ---
DISCHARGE SUMMARY: DATE OF ADMISSION: 05/04/16 DATE OF DISCHARGE: 05/07/16 PRIMARY CARE PHYSICIAN: Dr. Kelley. PRINCIPAL DISCHARGE DIAGNOSES: 1. Small bihemispheric strokes. 2. Urinary tract infection. SECONDARY DIAGNOSES: 1. Chronic urticaria. 2. Hypertension. 3. Chronic obstructive pulmonary disease. 4. Coronary artery disease. 5. Tobacco abuse. DISCHARGE MEDICATION REGIMEN: 1. Aspirin 325 mg by mouth daily. 2. Plavix 75 mg by mouth daily. 3. Keflex 250 mg by mouth 4 times daily. 4. Nicotine patch 14 mg daily. 5. Rajani 180 mg by mouth daily as needed for allergies. 6. Amlodipine 2.5 mg by mouth daily. 7. Albuterol 2 puffs inhaled every 4 hours as needed for shortness of breath or wheezing. 8. Advair 1 puff inhaled 2 times daily. 9. Hydroxyzine 25 mg by mouth every 6 hours as needed for itching. 10. Metoprolol tartrate 50 mg by mouth 2 times daily. 11. [place]-3 fatty acids 1 capsule by mouth 3 times daily. 12. Spironolactone 25 mg by mouth 2 times daily. 13. Spiriva 1 puff inhaled daily. STUDIES DONE DURING HOSPITALIZATION: CT of the brain without contrast, impression: When compared to 07/03/08 CT, there are age indeterminate infarctions involving the right frontal lobe, white matter tracts, and left caudate head nucleus, and the patient is exhibiting focal neurological deficits and further characterization could be obtained with MRI of the brain. MRI of brain without contrast, impression: Tiny foci of restricted diffusion in both cerebral hemispheres, most consistent with acute ischemia, likely from embolic phenomenon, old small infarct of left caudate nucleus. CTA of the head and neck. Impression: There are diffuse luminal irregularities with multifocal stenoses throughout the internal and middle cerebral arteries bilaterally. Additionally, there are atherosclerotic changes at the left carotid bifurcation resulting in a focal 70% diameter stenosis. These findings when reviewed in context with the concurrent MRI of the brain suggested the differential for the etiology of the punctate areas of acute ischemia and the MRI should also include a vasculitis or atherosclerotic change. MRI of the brain with contrast: There is multifocal enhancement corresponding to some of the white matter lesions noted on previous examinations. The differential includes enhancement in the setting of subacute infarct, enhancement in the setting of vasculitis, or active inflammation in the setting of an acute developing process, which may also occasionally exhibit restricted diffusion. Also, within the differential, but considered less likely in the absence of a history of malignancy is metastatic disease to the brain. HPI AND HOSPITAL SUMMARY: Please see the full history and physical by Dr. Lani Phan for full details. Briefly, Ms. Sanders is a 65-year-old female with a past medical history as above, who presented to the hospital with complaints of being off balance and having intermittent episodes of stumbling around and feeling as if her equilibrium was off. As noted above, she underwent a CT and MRI and a CTA that showed evidence of small bihemispheric infarctions. There was a concern for possible vasculitis, so the patient underwent an LP. There was no evidence of inflammation or infection on the CSF. A number of studies are still pending at this time. The patient's symptoms did not recur throughout her hospitalization. As she was on baby aspirin as an outpatient, she was increased to full-dose aspirin as well as Plavix. The patient was monitored on telemetry with no arrhythmias noted. She underwent a transesophageal echocardiogram, which did not show any evidence of clot or PFO. As noted on repeat MRI with contrast, the radiologist felt that they should mention metastatic malignancy in the differential; however, this is not consistent with the patient's history at all. She reports being up-to-date on her cancer screenings and has not exhibited any clear B signs that could be associated with malignancy. The patient is, however, a smoker. We will defer to PCP any further outpatient workup to look for an underlying malignancy, but I do not feel that this is likely the cause. The patient was noted to have urine culture growing group B strep here in the hospital with a mildly positive UA; however, she was only growing 50,000 to 75, 000 colony forming units; however, the patient did just see her PCP with complaints of dysuria and outpatient culture was growing over 100,000 colony forming units of the same bacteria, so she was placed on Keflex and will be discharged home to complete a 3-day course of antibiotics. TIME SPENT: Total time spent on this discharge was 55 minutes. This is a summary of the hospitalization, please see the full medical record for further details. CC: Dr. Kelley * [id number]/[facility] #: [id number] [facility]
[2016-05-08 10:21] LABS: C-ANCA Negative (Negative)
[2016-05-08 12:43] LABS: HSV 1 PCR, CSF Negative (Negative); HSV 2 PCR, CSF Negative (Negative)
[2016-05-08 14:10] LABS: Phospholipid IgM AB 11.5 MPL
[2016-05-08 16:34] LABS: CSF Oligoclonal Bands 0 bands; Oligoclonal Proteins Interpret 0 bands (<4); Serum Oligoclonal Bands 0 bands
[2016-05-08 17:25] LABS: CSF VDRL Negative (Negative)
[2016-05-09 15:58] LABS: CSF Immunoglobulin G Index 0.47
[2016-05-09 15:59] LABS: CSF Albumin 26.1 mg/dL; CSF IgG/Albumin Ratio 0.08
[2016-05-09 16:00] LABS: Albumin 3610 mg/dL; CSF Immunoglobulin G Synthesis 0.11 mg/24 h
[2016-05-09 16:01] LABS: Serum IgG/Albumin Ratio 0.17
[2016-05-09 16:02] LABS: Immunoglobulin G 623 mg/dL LOW
[2016-05-10 13:20] LABS: Albumin 100 %
[2016-05-10 18:20] LABS: CSF Angiotension Conv Enz 1.2 U/L (0.0-2.5)
== END 2016-05-07 16:25 | disposition home or self-care (01) | DRG 65 ==
LOC: ED 08:46 → MEDTELE 17:05 → OBSVTOIN 05-06 14:36
PROVIDERS: ADMIT Hospitalist; ATTEND Hospitalist
PROC: 009U3ZX Drainage of Spinal Canal, Percutaneous Approach, Diagnostic (ICD-10-PCS; principal; 2016-05-05)
PROC: B24BZZ4 Ultrasonography of Heart with Aorta, Transesophageal (ICD-10-PCS; 2016-05-05)
DX: I63.9 Cerebral infarction, unspecified (principal); N39.0 Urinary tract infection, site not specified; J44.9 Chronic obstructive pulmonary disease, unspecified; R13.10 Dysphagia, unspecified; L50.9 Urticaria, unspecified; Z91.040 Latex allergy status; M06.9 Rheumatoid arthritis, unspecified; Z82.49 Family history of ischemic heart disease and other diseases of the circulatory system; Z83.3 Family history of diabetes mellitus; Z82.3 Family history of stroke; F17.210 Nicotine dependence, cigarettes, uncomplicated; R40.2412 Glasgow coma scale score 13-15, at arrival to emergency department; I10 Essential (primary) hypertension; Z88.8 Allergy status to other drugs, medicaments and biological substances; Z82.5 Family history of asthma and other chronic lower respiratory diseases; Z80.3 Family history of malignant neoplasm of breast; R27.0 Ataxia, unspecified; I25.10 Atherosclerotic heart disease of native coronary artery without angina pectoris; Z79.02 Long term (current) use of antithrombotics/antiplatelets; B95.1 Streptococcus, group B, as the cause of diseases classified elsewhere
CPT/HCPCS: 36415; 70450; 70496; 70498; 70551; 70552; 80048; 80053; 80061; 80074; 81003; 81015; 82164; 82595; 82784; 82945; 83516; 83605; 83735; 83916; 84155; 84156; 84157; 84165; 84166; 84443; 84484; 85025; 85652; 86038; 86140; 86147; 86160; 86225; 86235; 86255; 86431; 86592; 86618; 87070; 87077; 87086; 87116; 87205; 87206; 87529; 89051; 93005; 93312; 93325; 94640; A9270-GY; A9577; J1644; J2250; J2310; J3010; Q9967

== ENCOUNTER 2016-12-18 13:47 | Emergency (ER) | payer MEDICARE, OTHER ==
[2016-12-18] MEDS ORDERED: methylPREDNISolone 125 MG* 2 ML VIAL IV ONE (14:47)
[2016-12-18] MEDS ORDERED: Albuterol/Ipratropium NEB.SOL* Albuterol 2.5 MG/Ipratropium 0.5 MG 3 ML INH ONE (14:47)
[2016-12-18 15:08] LABS: Hematocrit 52 % (35-47); Mean Corpuscular HGB Conc 35 g/dl (31-36); Mean Corpuscular Hemoglobin 32 pg (27-31); Mean Corpuscular Volume 93 fL (80-97); Mean Platelet Volume 8 um3 (7.4-10.4); Red Blood Count 5.58 10^6/ul (4.0-5.4); Red Cell Distribution Width 13 % (10.5-15); White Blood Count 6.7 10^3/ul (3.5-10.8)
[2016-12-18 15:21] LABS: Albumin 4.4 g/dL (3.2-5.2); BUN/Creatinine Ratio 12.8 (8-20); Calcium 9.9 mg/dL (8.6-10.3); EGFR Non-African American 73.9 (>60); Globulin 2.8 g/dL (2-4); Potassium 3.6 mmol/L (3.5-5.0); Total Bilirubin 0.8 mg/dL (0.2-1.0); Total Protein 7.2 g/dL (6.4-8.9)
[2016-12-18 15:24] LABS: Comments Flag Yes; Troponin I 0.72 ng/mL (<0.04)
[2016-12-18 15:25] LABS: Add Diff/Slide Review? Slide Review Added
[2016-12-18 15:26] VITALS: BP 142/94
--- NOTE | 2016-12-18 15:28 | RAD ---
INDICATION: Increased shortness of breath. Cardiac disease. Chronic obstructive pulmonary disease. COMPARISON: No relevant prior exams available on the [facility]. TECHNIQUE: Dual energy PA and routine lateral views of the chest were obtained. REPORT: Mildly elevated lung volumes and mild prominence of the interstitial markings. Subtle patchy rarefaction of the upper lung zone interstitial markings. No focal pulmonary lesion, compelling alveolar consolidation, pleural effusion, pneumothorax. The heart, pulmonary vasculature, and mediastinal contours are unremarkable. No suspicious osseous lesions evident. IMPRESSION: Stigmata of obstructive lung disease. No acute pulmonary or cardiac process evident.
[2016-12-18] MEDS ORDERED: Aspirin Low Dose CHEW TAB* 81 MG PO ONE (15:54)
--- NOTE | 2016-12-18 16:38 | ED ---
Rizwan Alvarado Angela, scribed for Yahir Stanford MD on 12/18/16 at 1453 . Shortness of Breath - HPI Summary HPI Summary: This pt is a 66 y/o female [facility] [place] [facility] [place]/o increased SOB x1 week, worsening today. She states that she has ran out of her inhaler Advair. Pt additionally reports a cold and cough. Pt is a current smoker. PMHx: HTN, COPD, VT, TIA. Pt has allergies to latex. - History of Current Complaint Chief Complaint: EDShortnessOfBreath Time Seen by Provider: 12/18/16 14:22 Hx Obtained From: Patient Onset/Duration: Lasting Days Alleviating Factors: Bronchodilators Associated Signs & Symptoms: Cough (Nonproductive) - Allergy/Home Medications Allergies/Adverse Reactions: Allergies Allergy/AdvReac Type Severity Reaction Status Date / Time Latex Allergy Blisters Verified 12/18/16 13:59 Home Medications: Home Medications Albuterol HFA INHALER* [Ventolin HFA Inhaler*] 2 puff INH Q4H PRN 12/18/16 [ History Confirmed 12/18/16] Metoprolol Tartrate TAB* [Lopressor TAB*] 50 mg PO BID 12/18/16 [History Confirmed 12/18/16] [place]-3 Fatty Acids [[place]-3 Fish Oil] 1 cap PO TID 12/18/16 [History Confirmed 12/18/16] Phenazopyridine 200 mg (NF) [Pyridium 200 MG tab *] 200 mg PO TID 12/18/16 [ History Confirmed 12/18/16] Tiotropium CAP.INH* [Spiriva CAP.INH*] 1 cap.inh INH DAILY 12/18/16 [History Confirmed 12/18/16] buPROPion SR TAB* [Wellbutrin SR TAB*] 150 mg PO BID 12/18/16 [History Confirmed 12/18/16] hydrOXYzine HCL TAB* [Atarax 25 MG TAB*] 25 mg PO Q6HR PRN 12/18/16 [History Confirmed 12/18/16] PMH/Surg Hx/FS Hx/Imm Hx Endocrine/Hematology History: Denies: Hx Diabetes Cardiovascular History: Reports: Hx Angina Denies: Hx Congestive Heart Failure, Hx Hypertension, Hx Pacemaker/ICD Respiratory History: Reports: Hx Chronic Obstructive Pulmonary Disease (COPD) GI History: Reports: Other GI Disorders - DIVERTICULITIS History: Reports: Hx Kidney Infection, Other Problems/Disorders - HX MILD RENAL INSUFFICIENCY Denies: Hx Renal Disease Musculoskeletal History: Reports: Other Musculoskeletal History - RHEUMATOID ARTHRITIS Sensory History: Reports: Hx Contacts or Glasses Denies: Hx Hearing Aid Opthamlomology History: Reports: Hx Contacts or Glasses Neurological History: Reports: Hx Transient Ischemic Attacks (TIA) - current dx Psychiatric History: Denies: Hx Panic Disorder - Cancer History Cancer Type, Location and Year: skin on finger--removed - Surgical History Surgery Procedure, Year, and Place: HYSTERECTOMY, OOPHRECTOMY, APENDECTOMY, CHOLECYSTECTOMY,TONSILECTOMY,URINARY TRACT SURGERY Hx Anesthesia Reactions: No - Immunization History Date of Tetanus Vaccine: current Date of Influenza Vaccine: 2015 Infectious Disease History: No Infectious Disease History: Denies: Traveled Outside the in Last 30 Days - Family History Known Family History: Positive: Cardiac Disease, Hypertension, Diabetes, Respiratory Disease - COPD, Other - stroke - Social History Alcohol Use: None Hx Substance Use: No Substance Use Type: Reports: None Hx Tobacco Use: Yes Smoking Status (MU): Heavy Every Day Tobacco Smoker Type: Cigarettes Length of Time of Smoking/Using Tobacco: 50 years Have You Smoked in the Last Year: Yes Review of Systems Negative: Fever, Chills Negative: Palpitations, Chest Pain Positive: Shortness Of Breath, Cough Genitourinary: Negative Musculoskeletal: Negative Negative: Headache, Weakness, Paresthesia, Numbness All Other Systems Reviewed And Are Negative: Yes Physical Exam Triage Information Reviewed: Yes Vital Signs On Initial Exam: Initial Vitals Temp Pulse Resp BP Pulse Ox 98.2 F 106 18 138/93 99 12/18/16 13:49 12/18/16 13:49 12/18/16 13:49 12/18/16 13:49 12/18/16 13:49 Vital Signs Reviewed: Yes Appearance: Positive: Well-Appearing Skin: Positive: Skin Color Reflects Adequate Perfusion Head/Face: Positive: Normal Head/Face Inspection Eyes: Positive: EOMI ENT: Positive: Normal ENT inspection Respiratory/Lung Sounds: Positive: Wheezes - bilateral in bases Cardiovascular: Positive: RRR. Negative: Murmur Abdomen Description: Positive: Nontender Musculoskeletal: Positive: Strength/ROM Intact Neurological: Positive: Sensory/Motor Intact, Alert, Oriented to Person Place, Time, CN Intact II-III Psychiatric: Positive: Normal - [place] Coma Scale Best Eye Response: 4 - Spontaneous Best Motor Response: 6 - Obeys Commands Best Verbal Response: 5 - Oriented Coma Scale Total: 15 Diagnostics - Vital Signs Vital Signs Temp Pulse Resp BP Pulse Ox 12/18/16 14:30 98 18 151/91 94 12/18/16 14:00 106 21 151/114 94 12/18/16 13:57 22 12/18/16 13:56 103 18 97 12/18/16 13:49 98.2 F 106 18 138/93 99 - Laboratory Result Diagrams: 12/18/16 14:55 12/18/16 14:55 Lab Statement: Any lab studies that have been ordered have been reviewed, and results considered in the medical decision making process. - Radiology Chest XR Xray Interpretation: No Acute Changes - IMPRESSION: stigmata of obstructive lung disease. No acute pulmonary or cardiac process evident. ED physician has reviewed this radiology report and agrees. Radiology Interpretation Completed By: Radiologist - EKG 1449 Cardiac Rate: NL - 98 bpm EKG Rhythm: Sinus Rhythm EKG Interpretation: No STEMI Course/Dx - Course Assessment/Plan: Pt is a 66 y/o female c/o increased SOB x1 week, worsening today. She states that she has ran out of her inhaler Advair. Pt additionally reports a cold and cough. Pt is a current smoker. PMHx: COPD. Chest XR reveals stigmata of obstructive lung disease. No acute pulmonary or cardiac process evident. Troponin is 0.72. The patient was asked to stay for admission, was informed of the elevated cardiac enzyme and her history of CAD. She understands the risk of leaving against advice. Continued heart damage, lung damage, and disability. - Diagnoses Provider Diagnoses: Shortness of breath, Elevated troponin, Hypertension Discharge - Discharge Plan Condition: Good Disposition: AGAINST MEDICAL ADVICE Referrals: Claire Kelley MD [Primary Care Provider] - The documentation as recorded by the Rizwan marte Angela accurately reflects the service I personally performed and the decisions made by , Yahir Stanford MD.
--- NOTE | 2016-12-18 21:33 | CONS ---
CC: Dr. Yahir Stanford; Dr. Kelley * CONSULTATION REPORT: DATE OF EVALUATION: 12/18/16 - EMERGENCY DEPT TIME OF EVALUATION: 4:10 p.m. CHIEF COMPLAINT: Shortness of breath. HISTORY OF PRESENT ILLNESS: Ms. Sanders is a 66-year-old lady with a past medical history of hypertension, COPD, CAD, chronic urticaria, CVA, tobacco abuse that presented to the emergency room with complaints of shortness of breath. The patient states that she had issues with her insurance and ran out of her inhalers. She tried to buy them, but they cost more than 500 dollars. So she was unable to. She has been trying to reinstate her insurance, but with no success. She was in a a couple of weeks ago and states that at that time , she was in contact with multiple family members that were sick with a cold. She developed worsening of her cough, shortness of breath, and when she ran out of the inhaler, everything became worse. She says that for the past couple of days, she has been more short of breath, but trying to avoid coming to the emergency room as she did not want to have a bill. Today, her symptoms were worse and she had to call EMS. She was described as found in a tripod position. She denies chest pain or palpitations, but her workup in the emergency room included a troponin that was 0.72 and for that reason, the hospitalist service was called for further evaluation. I introduced myself to the patient and explained reasoning for my visit. She was very pleasant and talked to me, but she is very cleat that she will not stay in the hospital for further evaluation. PAST MEDICAL HISTORY: 1. COPD. 2. Tobacco abuse. 3. Hypertension. 4. Coronary artery disease. The patient states that she had angina more than 20 years ago, with a cardiac cath, did not require stents and has not seen a composition roll maker and cutter since then. 5. Chronic urticaria. 6. Status post cholecystectomy. 7. Status post hysterectomy and bilateral salpingo-oophorectomy. MEDICATION LIST: 1. Albuterol HFA 2 puffs inhaled q.4 hours p.r.n. shortness of breath. 2. Amlodipine 2.5 mg p.o. daily. 3. Bupropion SR 150 mg p.o. b.i.d. 4. Clopidogrel 75 mg p.o. daily. 5. Fexofenadine 180 mg p.o. daily as needed for hives. 6. Advair Diskus 500/50 one puff inhaled b.i.d. 7. Hydroxyzine 25 mg p.o. q.6 hours p.r.n. allergies. 8. Metoprolol tartrate 50 mg p.o. b.i.d. 9. [place]-3 one capsule p.o. t.i.d. 10. Pyridium 200 mg p.o. t.i.d. 11. Spironolactone 25 mg p.o. b.i.d. 12. Spiriva 1 capsule inhaled daily. ALLERGIES: To LATEX, NIACIN, and STATINS. FAMILY HISTORY: Her mother passed at age 93 of old age. Dad, age 75 of peritonitis following colonic perforation. SOCIAL HISTORY: The patient is a smoker, pack a day for more than 20 years. Occasionally drinks alcohol. Denies drug use. Surrogate decision maker is her daughter, Adela Calvin, phone number is [phone]. REVIEW OF SYSTEMS: A 14-point review of systems was performed and all the pertinent negative and positive findings are in the HPI. PHYSICAL EXAM: Vital Signs: Temperature 98.2, heart rate is 84, respiratory rate is 21 oxygen saturation is 95% on room air, blood pressure is 142/94. General: The patient is an elderly lady, appears older than stated age, lying on the ER stretcher, in no acute distress. HEENT: Pupils are equal. Moist mucous membranes. CVS: Normal S1 and S2. Regular rate and rhythm. Chest: Breath sounds present bilaterally, decreased with scattered wheeze. Neuro: She is alert and oriented x3. Able to move all 4 extremities. DIAGNOSTIC STUDIES/LAB DATA: The patient had a CBC that showed WBC of 6.7, hemoglobin of 18, hematocrit of 52, platelet count of 167. Chemistry showed a sodium of 134, potassium of 3.6, chloride of 101, bicarb 25, BUN of 10, creatinine of 0.78, glucose of 105, lactic acid of 1, calcium of 9.9. LFTs are normal. Troponin is 0.72. Chest x-ray showed stigmata of obstructive lung disease with no acute pulmonary or cardiac process evident. EKG showed sinus rhythm at 98 beats per minute with flat T wave in V5 to V6. Those are new when compared to her prior EKG from April. ASSESSMENT AND PLAN: Ms. Sanders is a 66-year-old old with past medical history of tobacco abuse, chronic obstructive pulmonary disease, cerebrovascular accident, who presents to the emergency room with complaints of shortness of breath, found to have an elevated troponin. The patient was offered the option for admission and further workup. She is very clear that she will not stay. I explained that this may represent a heart attack or it could be demand ischemia associated with her chronic obstructive pulmonary disease and shortness of breath. In any case, she would benefit of further observation in the hospital and further workup. The patient states she would not be able to afford it as her insurance is not current at this time. I explained that we could have the social media project manager work with her and usually after insurances are reinstated, they cover retroactively the prior 3 months and even if they did not, her health is more important. The patient states that she probably have this problem solved by the end of the week, but I reinforced that with her clinical presentation at this point it is not clear if she will be here by the end of the week as if this is truly acute coronary syndrome, she is at very high risk for including cardiac arrhythmias. The patient is of firm mind. She understands the information and I believe she has the capacity to leave against medical advice. The patient was advised to return to the emergency room if she has worsening of her symptoms. She will leave against medical advice at this point. TIME SPENT: Approximately 45 minutes were spent with the patient interview, medical record review, physical examination to complete this consultation, more than half of this time was spent [id number] with the patient in coordination of care. [id number]/[facility] #: [id number] VINICIUS
== END 2016-12-18 16:36 | disposition left against medical advice (07) ==
LOC: ED 13:47
DX: R06.02 Shortness of breath (principal); R05 Cough; R79.89 Other specified abnormal findings of blood chemistry; I10 Essential (primary) hypertension; F17.210 Nicotine dependence, cigarettes, uncomplicated; Z86.79 Personal history of other diseases of the circulatory system; Z87.09 Personal history of other diseases of the respiratory system
CPT/HCPCS: 36415; 71020; 80053; 83605; 83880; 84484; 85025; 93005; 94640; 94760; 96374; 99283; A9270-GY; J2930

== ENCOUNTER 2017-02-18 18:33 | Inpatient (IN) | payer MEDICARE ==
[2017-02-18 19:28] LABS: Hematocrit 41 % (35-47); Hemoglobin 13.9 g/dl (12.0-16.0); Mean Corpuscular HGB Conc 34 g/dl (31-36); Mean Corpuscular Hemoglobin 32 pg (27-31); Mean Corpuscular Volume 94 fL (80-97); Mean Platelet Volume 8 um3 (7.4-10.4); Red Blood Count 4.35 10^6/ul (4.0-5.4); Red Cell Distribution Width 13 % (10.5-15); White Blood Count 20.9 10^3/ul (3.5-10.8)
[2017-02-18 19:30] LABS: Add Diff/Slide Review? Slide Review Added; Comments Flag Yes
--- NOTE | 2017-02-18 19:32 | RAD ---
INDICATION: TIA. COMPARISON: December 18, 2016 TECHNIQUE: An AP portable view obtained at 1921 hours is submitted. FINDINGS: Bones/Soft Tissues: There are no acute bony findings. Cardiomediastinal: The cardiomediastinal silhouette is normal. Lungs: There is hyperinflation with mild diffuse increase in interstitial markings with a more acute focal interstitial process involving the left lung apex. This has developed since the December 2016 examination. Pleura: There are no pleural effusions. Other: None IMPRESSION: NEW LEFT UPPER LOBE NODULAR INFILTRATIVE CHANGE. HYPERINFLATION. SUGGEST FOLLOW-UP
[2017-02-18 19:43] LABS: ALT 9 U/L (7-52); AST 15 U/L (13-39); Albumin 4.1 g/dL (3.2-5.2); Alkaline Phosphatase 73 U/L (34-104); Anion Gap 10 mmol/L (2-11); BUN/Creatinine Ratio 12.7 (8-20); Blood Urea Nitrogen 20 mg/dL (6-24); CO2 Carbon Dioxide 22 mmol/L (22-32); Chloride 94 mmol/L (101-111); Creatine Kinase 52 U/L (10-223); EGFR African American 42.4 (>60); Globulin 2.9 g/dL (2-4); Glucose 140 mg/dL (70-100); Magnesium 1.7 mg/dL (1.9-2.7); Potassium 4.2 mmol/L (3.5-5.0); Sodium 126 mmol/L (133-145)
--- NOTE | 2017-02-18 20:00 | RAD ---
INDICATION: TIA COMPARISON: CT brain May 04, 2016; MRI May 07, 2016 TECHNIQUE: Noncontrast axial source images were acquired from the skull base to the vertex. FINDINGS: Ventricles/sulci: The ventricles and cisterns are normal in size and configuration for age. Brain parenchyma: There is no acute focal parenchymal finding, evidence of intracranial mass, or intracranial mass effect. There is an old left caudate nucleus infarct and there is also an infarct involving the right caudate nucleus and internal capsule. This is latter finding is new relative to the prior study, however. There are additional small areas of prior insult in deep white matter tracts near the vertex which correspond to abnormalities on earlier MR imaging. Intracranial hemorrhage:None. Extra-axial spaces: There are no abnormal extra axial fluid collections or evidence of extra-axial mass. Calvarium: There is no calvarial fracture or other calvarial abnormality. Scalp: There is no evidence of scalp or extracalvarial soft tissue abnormality. Paranasal sinuses/mastoid: The paranasal sinuses and mastoid air cells are clear. Other: None. IMPRESSION: FOCAL BRAIN PARENCHYMAL FINDINGS PRESUMABLY ARE RELATED TO PRIOR VASCULAR INSULT AND ARE MORE CONSPICUOUS ON TODAY'S EXAMINATION. THESE DO NOT APPEAR ACUTE, HOWEVER.
[2017-02-18] MEDS ORDERED: Levofloxacin 750 MG IVPREMIX(* 750 MG/150 ML BAG IVPB ONE (20:04)
[2017-02-18 20:06] LABS: Alcohol < 10 mg/dL (<10)
--- NOTE | 2017-02-18 20:29 | ED ---
Qamar Alvarado Thomas, scribed for Conner Zimmerman MD on 02/18/17 at 1906 . Neurological HPI - HPI Summary HPI Summary: The patient is a 66 y/o female presenting to the ED with right lower extremity weakness that began yesterday morning. She has fallen twice in the last hour secondary to the weakness. The patient says she feels shaky and dizziness. Patient denies nausea. When I walk the patient in the emergency department, the patient says her gait is improved. The patient says she had a stroke a few years ago and she has no residual weakness from this stroke. The patient is on Plavix, metoprolol, and spironolactone. - History of Current Complaint Chief Complaint: EDNeurologicalDeficit Stated Complaint: UNABLE TO WALK/RT SIDE WEAKNESS Time Seen by Provider: 02/18/17 18:46 Hx Obtained From: Patient Onset/Duration: Started days ago - 1, Still Present Timing: Constant Onset Severity: Mild Pain Intensity: 0 Pain Scale Used: 0-10 Numeric Character: Motor Weakness - to right lower extremity Aggravating: Nothing Alleviating: Other - Some spontaneous resolution Associated Signs and Symptoms: Positive: Dizziness. Negative: Nausea/Vomiting - Additional Pertinent History Primary Care Physician: JIMMY - Allergy/Home Medications Allergies/Adverse Reactions: Allergies Allergy/AdvReac Type Severity Reaction Status Date / Time Latex Allergy Blisters Verified 12/18/16 13:59 PMH/Surg Hx/FS Hx/Imm Hx Previously Healthy: No Endocrine/Hematology History: Denies: Hx Diabetes Cardiovascular History: Reports: Hx Angina Denies: Hx Congestive Heart Failure, Hx Hypertension, Hx Pacemaker/ICD Respiratory History: Reports: Hx Asthma, Hx Chronic Obstructive Pulmonary Disease (COPD) GI History: Reports: Other GI Disorders - DIVERTICULITIS History: Reports: Hx Kidney Infection, Other Problems/Disorders - HX MILD RENAL INSUFFICIENCY Denies: Hx Renal Disease Musculoskeletal History: Reports: Other Musculoskeletal History - RHEUMATOID ARTHRITIS Sensory History: Reports: Hx Contacts or Glasses Denies: Hx Hearing Aid Opthamlomology History: Reports: Hx Contacts or Glasses Neurological History: Reports: Hx Transient Ischemic Attacks (TIA) - current dx Psychiatric History: Denies: Hx Panic Disorder - Cancer History Cancer Type, Location and Year: skin on finger--removed - Surgical History Surgery Procedure, Year, and Place: HYSTERECTOMY, OOPHRECTOMY, APENDECTOMY, CHOLECYSTECTOMY,TONSILECTOMY,URINARY TRACT SURGERY Hx Anesthesia Reactions: No - Immunization History Date of Tetanus Vaccine: current Date of Influenza Vaccine: 2016 Infectious Disease History: No Infectious Disease History: Denies: Traveled Outside the [place] in Last 30 Days - Family History Known Family History: Positive: Cardiac Disease, Hypertension, Diabetes, Respiratory Disease - COPD, Other - stroke - Social History Alcohol Use: None Hx Substance Use: No Substance Use Type: Reports: None Hx Tobacco Use: Yes Smoking Status (MU): Heavy Every Day Tobacco Smoker Type: Cigarettes Length of Time of Smoking/Using Tobacco: 50 years Have You Smoked in the Last Year: Yes Review of Systems Negative: Nausea Neurological: Other - Dizziness Positive: Weakness - to her RLE All Other Systems Reviewed And Are Negative: Yes Physical Exam - Summary Physical Exam Summary: VITAL SIGNS: Reviewed. GENERAL: Patient is a well-developed and nourished female who is lying comfortable in the stretcher. Patient is not in any acute respiratory distress. HEAD AND FACE: No signs of trauma. No ecchymosis, hematomas or skull depressions. No sinus tenderness. EYES: PERRLA, EOMI x 2, No injected conjunctiva, no nystagmus. EARS: Hearing grossly intact. Ear canals and tympanic membranes are within normal limits. MOUTH: Oropharynx within normal limits. NECK: Supple, trachea is midline, no adenopathy, no JVD, no carotid bruit, no c- spine tenderness, neck with full ROM. CHEST: Symmetric, no tenderness at palpation LUNGS: Clear to auscultation bilaterally. No wheezing or crackles. CVS: Regular rate and rhythm, S1 and S2 present, no murmurs or gallops appreciated. ABDOMEN: Soft, non-tender. No signs of distention. No rebound no guarding, and no masses palpated. Bowel sounds are normal. EXTREMITIES: FROM in all major joints, no edema, no cyanosis or clubbing. NEURO: Alert and oriented x 3. She has a mildly unsteady gait when she walks. She has normal coordination. There is no nystagmus. Speech is normal and follows commands. SKIN: Dry and warm Triage Information Reviewed: Yes Vital Signs On Initial Exam: Initial Vitals Temp Pulse Resp BP Pulse Ox 96.4 F 84 20 107/60 98 02/18/17 18:38 02/18/17 18:38 02/18/17 18:38 02/18/17 18:38 02/18/17 18:38 Vital Signs Reviewed: Yes - Brant Coma Scale Coma Scale Total: 15 Diagnostics - Vital Signs Vital Signs Temp Pulse Resp BP Pulse Ox 02/18/17 18:38 96.4 F 84 20 107/60 98 - Laboratory Result Diagrams: 02/18/17 19:19 02/18/17 19:19 Lab Statement: Any lab studies that have been ordered have been reviewed, and results considered in the medical decision making process. - Radiology CXR Xray Interpretation: Positive (See Comments) - NEW LEFT UPPER LOBE NODULAR INFILTRATIVE CHANGE. HYPERINFLATION. SUGGEST FOLLOW-UP ED physician has reviewed this report and agrees. Radiology Interpretation Completed By: Radiologist - CT CT Brain CT Interpretation: Positive (See Comments) - FOCAL BRAIN PARENCHYMAL FINDINGS PRESUMABLY ARE RELATED TO PRIOR VASCULAR INSULT AND ARE MORE CONSPICUOUS ON TODAY'S EXAMINATION. THESE DO NOT APPEAR ACUTE, HOWEVER. ED physician has reviewed this report and agrees. CT Interpretation Completed By: Radiologist - EKG 19:08 Cardiac Rate: NL EKG Rhythm: Sinus Rhythm - at 67 bpm EKG Interpretation: Nml axis. Nml interval. Nonspecific T-wave changes. Course/Dx - Course Assessment/Plan: In the ED course the patient was given Levofloxacin. Bloodwork was obtained. EKG was obtained. CT Brain shows FOCAL BRAIN PARENCHYMAL FINDINGS PRESUMABLY ARE RELATED TO PRIOR VASCULAR INSULT AND ARE MORE CONSPICUOUS ON TODAY'S EXAMINATION. THESE DO NOT APPEAR ACUTE, HOWEVER. The patient is diagnosed with right CVA and generalized weakness. Patient is admitted to Dr. Gabriel. - Diagnoses Provider Diagnoses: Right CVA, Left upper lobe pneumonia - Physician Notifications Discussed Care Of Patient With: Remberto Gabriel Time Discussed With Above Provider: 20:30 Instructed by Provider To: Admit As Inpatient Discharge - Discharge Plan Condition: Fair Disposition: ADMITTED TO [facility] Referrals: Claire Kelley MD [Primary Care Provider] - The documentation as recorded by the Qamar marte Thomas accurately reflects the service I personally performed and the decisions made by me, Conner Zimmerman MD.
--- NOTE | 2017-02-18 20:52 | HP ---
H&P (Free Text) History and Physical: Mrs Sanders is a 66F HX CVA presenting with worsening R sided-weakness found to have a pneumonia & leukocytosis. Will admit for initiation of IV ABX, IVFs, & MRI brain WO to further evaluate for recurrent CVA. Neurology consult to be considered pending MRI report.
[2017-02-18] MEDS ORDERED: Magnesium Sulfate 2 GM IV* 2 GM/50 ML BAG IVPB ONE (21:03)
[2017-02-18] MEDS ORDERED: Albuterol HFA INHALER* 8 gm MDI INH PRN (21:37)
[2017-02-18] MEDS ORDERED: hydrOXYzine HCL TAB* 25 MG PO PRN (21:37)
[2017-02-18 21:55] LABS: Troponin I 0.03 ng/mL (<0.04)
[2017-02-18] MEDS: NS 0.9% 1000 ML* 1,000 ML IV SCH (22:21)
[2017-02-18] MEDS: Heparin VIAL(*) 5000 UNITS/ML VIAL (FIVE THOUSAND) SUBCUT SCH (22:47)
[2017-02-18] MEDS: cefTRIAXone VIAL(*) 1,000 MG in D5W 50 ML BAG* 50 ML IVPB SCH (23:44)
[2017-02-18] MEDS: Nicotine PATCH 14 MG/24 HR* PATCH TRANSDERM SCH (23:57)
[2017-02-19] MEDS: Azithromycin IV(*) 500 MG in NS 0.9% 250 ML* 250 ML IVPB SCH ×2 (00:09→23:09)
--- NOTE | 2017-02-19 00:51 | HP ---
CC: Dr. Kelley * HISTORY AND PHYSICAL: DATE OF ADMISSION: 02/18/17 PRIMARY CARE PROVIDER: Dr. Kelley. ATTENDING PHYSICIAN: Dr. Remberto Gabriel * (dictated by Sejal Danielle NP) CHIEF COMPLAINT: Right lower extremity weakness since yesterday increased from her baseline. HISTORY OF PRESENT ILLNESS: Ms. Sanders is a 66-year-old female with past medical history significant for hypertension, COPD, and cerebrovascular accident in April of this year who presents to the emergency room with complaints of intermittent right lower extremity weakness that started yesterday. The patient states that while walking, her right leg gives out. It generally feels as though she has increased right-sided weakness from her baseline. She reports falling twice today. She reports feeling dizzy and shaky. She denies any fever, chills, shortness of breath. She reports a chronic cough with generally clear mucus production, has occasionally recently had yellow mucus. She denies any urinary symptoms such as dysuria or changes in urgency or frequency. She reports blurry vision and left lung chest discomfort. Due to her continued symptoms, she presented to the emergency room for further evaluation of her symptoms. While in the emergency room, the patient had a brain CT showing a focal brain parenchymal findings presumably related to prior vascular insult and are more conspicuous on today's examination. They do not appear to be acute however. The patient also had a chest x-ray today showing a new left upper lobe nodular infiltrate. The patient received Levaquin while in the emergency room. She had labs drawn and was significant for a white blood cell count of 20.9. She was also found to be hyponatremic with a sodium of 126, has an acute kidney injury with a creatinine of 1.57. She has low magnesium at 1.7. Her serum alcohol was less than 10. Hospitalist were asked to evaluate the patient for admission. PAST MEDICAL HISTORY: 1. Chronic urticaria. 2. Hypertension. 3. Chronic obstructive pulmonary disease. 4. Coronary artery disease. 5. Cerebrovascular accident. PAST SURGICAL HISTORY: 1. Status post cholecystectomy. 2. Status post total abdominal hysterectomy with bilateral salpingo- oophorectomy. 3. Status post appendectomy. 4. Status post tonsillectomy. 5. Status post urinary surgery. HOME MEDICATIONS: Include: 1. Hydralazine 25 mg oral every 6 hours as needed for itching. 2. Amlodipine 2.5 mg oral daily. 3. Spiriva 1 capsule inhalation daily. 4. Spironolactone 25 mg oral daily. 5. [place]-3 fish oil 2 capsules oral daily. 6. Metoprolol tartrate 50 mg oral twice daily. 7. Advair Diskus 500/50 one puff inhalation twice daily. 8. Rajani 180 mg oral daily as needed for allergy symptoms. 9. Plavix 75 mg oral daily. 10. Albuterol HFA inhaler 2 puffs inhalation every 4 hours as needed for shortness of breath or wheezing. 11. Multivitamin 1 tablet oral daily. ALLERGIES: LATEX, NIACIN, and STATINS. FAMILY HISTORY: The patient's sister and mother both have a history of 5- vessel CABG. The patient's mother and sister have a history of diabetes mellitus. The patient's sister has a history of pancreatic cancer and just recently passed. The patient's father had a history of throat cancer. SOCIAL HISTORY: The patient is a current smoker, smoking approximately half a pack a day. She smoked for more than 20 years. She drinks 3 vodkas daily. Her daughter, Nafisa Calvin will be her surrogate decision maker in the event she is unable to make decisions for herself. REVIEW OF SYSTEMS: I performed a 14-point review of systems. All the pertinent positives and negatives are mentioned in the history of present illness. The remaining review of systems are negative. PHYSICAL EXAMINATION GENERAL APPEARANCE: The patient is alert, pleasant, and appears to be in no acute distress. VITAL SIGNS: Temperature 96.4, heart rate 74, respiratory rate 18, O2 sat 99% on room air, blood pressure 121/73. HEENT: Normocephalic, atraumatic. Pupils are equal and reactive to light. Extraocular movements are intact. RESPIRATORY: The lungs are diminished in all lung solis. There are no wheezes , rhonchi or crackles heard. CARDIOVASCULAR: Regular rate and rhythm. S1, S2 present. There are no murmurs , rubs or gallops heard. ABDOMEN: Soft, nontender, nondistended. There are bowel sounds present x4. MUSCULOSKELETAL: There is no clubbing or cyanosis noted. The patient has full range of motion of all extremities. NEUROLOGICAL: Cranial nerves II through XII are grossly intact. STRENGTH: 5/5 bilateral. She has equal dorsi and plantar flexion bilateral. She is able to lift both legs off the bed, although she is able to only lift the right lower extremity less than the left off the bed. She is able to perform heel from ankle to knee bilateral without difficulty. She is able to perform [id number] bilateral without difficulty. Her smile is symmetric. Her tongue is midline. She has no pronator drift. PSYCHOLOGICAL: The patient is alert and oriented x3. SKIN: There are no rashes or abnormalities seen. DIAGNOSTIC STUDIES/LABORATORY DATA: Sodium 126, potassium 4.2, chloride 94, CO2 22, BUN 20, creatinine 1.57, glucose 140. Magnesium 1.7. White blood cell count 2.0, hemoglobin 13.9, hematocrit 41, and platelet count 164. Toxicology serum alcohol less than 10. INR 1.14. EKG from today shows a sinus rhythm at a rate of 64. She has some nonspecific ST changes with new slight ST depression in V5 and V6 when compared to previous EKG from 12/18/16. 1. Chest x-ray from today. Radiologist's impression: New left upper lobe nodular infiltrative change. Hyperinflation. Suggest followup. 2. Brain CT from today. Radiologist's impression: Focal brain parenchymal findings, presumably are related to prior vascular insult and are more conspicuous on today's examination. These do not appear acute, however. IMPRESSION: Ms. Sanders is a 66-year-old female with past medical history significant for hypertension, chronic obstructive pulmonary disease, coronary artery disease, and cerebrovascular accident who presents to the emergency room with complaints of right-sided weakness. She was admitted as inpatient for pneumonia and rule out cerebrovascular accident. ASSESSMENT/PLAN: 1. Pneumonia. The patient is currently afebrile. She does have leukocytosis with white blood cell count of 20.9. She will be placed on ceftriaxone and azithromycin. We will get a sputum culture and will check her urine for legionella and Streptococcus pneumoniae antigens. 2. Right- sided weakness. The patient reports intermittent weakness, increased from her baseline, right-sided weakness over the last day. Differential includes exacerbation of her right-sided weakness due to her pneumonia versus new cerebrovascular accident. The patient will have an MRI. We will do neuro checks q.4 hours. We will monitor her on telemetry. We will hold the patient's amlodipine and spironolactone in the setting of possible CVA to allow for permissive hypertension. We will check fasting lipids in the morning. We will not start the patient on any lipid lowering agent at this time as she has a documented lipid allergy. I am going to hold on any further workup such as carotid ultrasound or CTA of the head and neck and echocardiogram until the results of the patient's MRI are back. We will hold on a neurological consult until the patient's MRI is completed. 3. Chest pain. The patient reports intermittent left-sided chest pain. Her EKG showed some new ST depressions in leads V5 and V6 and some other nonspecific ST changes. We will add a troponin to her ED labs and we will trend her troponins. 4. Hyponatremia. The patient's sodium is 126. I suspect this is secondary to hypovolemia. We will get her some gentle IV hydration, recheck her labs in the morning. 5. Acute kidney injury. I suspect this is in the setting of hypovolemia. The patient will have gentle IV hydration overnight. We will recheck her labs in the morning. We will hold nephrotoxic agents. 6. Electrolyte abnormalities. The patient's magnesium is low. We will give her replacement and recheck her labs in the morning. 7. Elevated total bilirubin. My question if this could be related to the patient's alcohol intake. We will recheck her labs in the morning as it had not been elevated prior. If it continues to be elevated, we will consider further workup. 8. Hypertension. The patient is currently normotensive. We will continue her on her metoprolol, withhold parameters, and hold her amlodipine and spironolactone in the setting of a possible cerebrovascular accident to allow for permissive hypertension. 9. Chronic obstructive pulmonary disease. The patient does not appear to be in a chronic obstructive pulmonary disease exacerbation at this time. We will continue her home inhaled medications. 10. History of coronary artery disease. The patient will be continued on her home metoprolol and Plavix. 11. Alcohol abuse. The patient will be placed on a WAM protocol, at this time we will just monitor the WAM scoring and hold on Ativan PRN while we rule out a CVA. 12. Fluids, electrolytes, and nutrition. The patient will be on a heart healthy diet. 13. Code status. Full code. 14. DVT prophylaxis. The patient is at high risk, will be placed on subcu heparin. 15. Disposition. Inpatient for pneumonia and rule out cerebrovascular accident. TIME SPENT: Time spent for this admission was approximately 60 minutes, greater than half of that was spent with the patient and family discussing medications, past medical history, and the events leading up to arrival today, and performing a physical examination. The case was then reviewed with the attending, Dr. Gabriel who agrees with the plan of care. Reviewed by KWASI INFANTE 02/25/17 1316 [id number]/[facility] #: [id number] VINICIUS
[2017-02-19 03:29] LABS: Urine Bacteria Absent (Absent); Urine Bilirubin Negative (Negative); Urine Glucose Negative (Negative); Urine Nitrite Negative (Negative)
[2017-02-19] MEDS: Acetaminophen TAB* 325 MG PO PRN ×2 (04:56→20:07)
[2017-02-19] MEDS: Heparin VIAL(*) 5000 UNITS/ML VIAL (FIVE THOUSAND) SUBCUT SCH ×3 (04:57→20:09)
[2017-02-19] MEDS: Nicotine Patch Removal NOTE FOLLOW UP SCH (05:06)
[2017-02-19 06:51] LABS: Add Diff/Slide Review? Slide Review Added; Comments Flag Yes; Hematocrit 36 % (35-47); Hemoglobin 12.3 g/dl (12.0-16.0); Mean Corpuscular HGB Conc 34 g/dl (31-36); Mean Corpuscular Hemoglobin 32 pg (27-31); Mean Corpuscular Volume 94 fL (80-97); Mean Platelet Volume 8 um3 (7.4-10.4); Red Blood Count 3.83 10^6/ul (4.0-5.4); Red Cell Distribution Width 13 % (10.5-15); White Blood Count 14.2 10^3/ul (3.5-10.8)
[2017-02-19 07:14] LABS: BUN/Creatinine Ratio 17.6 (8-20); Calcium 8.8 mg/dL (8.6-10.3); EGFR African American 86.1 (>60); EGFR Non-African American 66.9 (>60); HDL Cholesterol 46.1 mg/dL; Potassium 3.2 mmol/L (3.5-5.0)
--- NOTE | 2017-02-19 07:57 | RAD ---
HISTORY: Right leg weakness since the previous day COMPARISONS: MRI of the brain dated May 04, 2016 TECHNIQUE: The following sequences were obtained of the head: Sagittal T1-weighted images, axial T2-weighted images, axial FLAIR images, axial susceptibility weighted images, axial T1-weighted images. Additionally, axial diffusion-weighted images were obtained with calculated apparent diffusion coefficients.. FINDINGS: HEMORRHAGE/INFARCT: There is no hemorrhage or acute infarct. MASSES/SHIFT: There is no mass or shift. EXTRA-AXIAL SPACES/MENINGES: There are no extra-axial fluid collections. SULCI AND VENTRICLES: The sulci and ventricles are normal in size and position for the patient's stated age. CEREBRUM: On the diffusion-weighted imaging there is a hypointense focus adjacent to the right lateral ventricle with hyperintense signal on the periphery. It is new since the previous MRI. This area corresponds to bright signal on the T2-weighted imaging. On the T2-weighted imaging there is scattered periventricular and subcortical white matter hyperattenuation that corresponds to similar foci on the May 04, 2016 MRI of the brain. BRAINSTEM: There are no focal parenchymal abnormalities. CEREBELLUM: There are no focal parenchymal abnormalities. The cerebellar tonsils are normal in size and position. SELLA: The sella is normal. PINEAL: The pineal region is clear. CP ANGLE/TEMPORAL BONES: The labyrinthine structures are grossly normal. VESSELS: Normal flow-voids are noted within the visualized vertebral vasculature. DIFFUSION ABNORMALITIES: There are no diffusion abnormalities. PARANASAL SINUSES/MASTOIDS: The paranasal sinuses are clear. ORBITS: The orbits are unremarkable. BONES AND SOFT TISSUE: No bone or soft tissue abnormalities are noted. IMPRESSION: MRI FINDINGS ARE COMPATIBLE WITH AT LEAST ONE NEW ACUTE ISCHEMIC FOCUS IN THE RIGHT BASAL GANGLIA AMIDST MULTIPLE FOCI OF CHRONIC INFARCTS SEEN ON THE MAY 04, 2016 MRI.
[2017-02-19] MEDS: Mometasone/Formoter 200/5 MDI INH SCH ×2 (08:45→09:01)
[2017-02-19] MEDS ORDERED: Spiriva Inhaler DEVICE* 1 EACH DEVICE INH ONE (09:00)
[2017-02-19] MEDS ORDERED: Pneumococcal *Vac Polyvalent 0.5 ML VIAL IM ONE (09:00)
[2017-02-19] MEDS ORDERED: Influenza VAC *QUAD* 2017-18* 0.5 ML SYRINGE IM ONE (09:00)
[2017-02-19] MEDS: Tiotropium CAP.INH* CAP.INH/18 MCG (USE ORDER SET !) INH SCH (09:01)
[2017-02-19] MEDS: NS 0.9% 1000 ML* 1,000 ML IV SCH ×2 (09:14→19:58)
[2017-02-19] MEDS: Potassium Chlor TAB* 20 MEQ TAB.ER PO SCH ×2 (09:16→20:08)
[2017-02-19] MEDS: Folic Acid TAB* 1 MG PO SCH (09:16)
[2017-02-19] MEDS: Metoprolol Tartrate TAB* 50 mg PO SCH ×2 (09:16→20:08)
[2017-02-19] MEDS: Clopidogrel TAB* 75 MG PO SCH (09:16)
[2017-02-19] MEDS: Thiamine TAB* 100 MG TAB PO SCH (09:17)
[2017-02-19] MEDS: Nicotine PATCH 14 MG/24 HR* PATCH TRANSDERM SCH (09:17)
[2017-02-19] MEDS: Multivitamins/Minerals TAB PO SCH (09:17)
--- NOTE | 2017-02-19 17:43 | RAD ---
Indication: Right lower extremity weakness. Duplex Doppler sonography of the carotid arteries was performed. The right common carotid artery demonstrates intimal wall thickening with soft plaque. Mixed plaque is noted in the carotid bulb extending into the right internal carotid artery. Peak systolic velocity of the right distal common carotid artery is 101 cm/s. Peak systolic velocity of the right internal carotid artery is 290 cm/s. The ICA/CC ratio is 2.07. Right vertebral artery demonstrates antegrade flow. The left common carotid artery demonstrates intimal wall thickening with plaque extending into the left internal carotid artery. Plaque is noted in the left common carotid artery as well. Peak systolic velocity of the distal left common carotid artery is 33 cm/s. Peak systolic velocity of the left internal carotid artery is 441 cm/s. ICA/CC ratio is 13.4. IMPRESSION: 50-70% stenosis of the right internal carotid artery. Greater than 70% stenosis of left internal carotid artery.
--- NOTE | 2017-02-19 21:26 | CONS ---
NEUROLOGY CONSULTATION: DATE OF CONSULT: 02/19/17 LOCATION: She is in room 432. REFERRING PROVIDER: RAY Lino CHIEF COMPLAINT: Episodes of right leg weakness. HISTORY OF PRESENT ILLNESS: Chantelle Sanders is a 66-year-old right-handed woman known to me from prior post hospitalization outpatient followup for stroke that she had in April 2016. She saw Dr. Byrd at that time. She had an MRI, which revealed bihemispheric small infarctions. She had a number of laboratory studies in addition to the MRI scan including a CT angiogram of the head and neck, which showed about 70% left carotid stenosis. There is also diffuse atheromatous disease intracranially. Vasculitis was raised as a possible diagnosis and she had a lumbar puncture, which was normal. She was discharged on Plavix and aspirin. As an outpatient, I discontinued the aspirin after 90 days and she remains on Plavix monotherapy. Yesterday, she was just feeling poorly in general. She has a chronic cough, but it became more productive. She felt generally weak and had 2 episodes where her right leg just seemed to give out on her. She presented to the emergency room where she no longer had right leg weakness when examined by Dr. Zimmerman. She was found to have evidence of pneumonia on chest x-ray and had an elevated white blood cell count and was treated with antibiotics and admitted. She has not had any recurrence of the right leg weakness. She has been up on her feet today. She has not noticed any problems with language during these episodes or since or problems with her right arm or face. PAST MEDICAL HISTORY: Notable for cerebrovascular disease, hypertension, ongoing tobacco abuse, chronic urticaria, history of appendectomy, tonsillectomy , cholecystectomy. MEDICATIONS: At home, include: 1. Amlodipine 2.5 mg p.o. q. day. 2. Spiriva 1 capsule inhaler q. day. 3. Spironolactone 25 mg p.o. q. day. 4. Metoprolol 50 mg p.o. b.i.d. 5. Advair Diskus 500/50 one puff b.i.d. 6. Plavix 75 mg p.o. q. day. 7. Multivitamins. ALLERGIES: She is allergic to NIACIN, LATEX, and STATINS. Not sure what the reaction of statins was. FAMILY HISTORY: Notable for cerebrovascular disease, diabetes, and coronary artery disease in her parents. Father had throat cancer. SOCIAL HISTORY: The patient continues to smoke. She apparently has several vodka drinks a day. REVIEW OF SYSTEMS: Negative for headache, change in vision, numbness, or tingling. No episodes of passing out, although she did feel lightheaded and weak yesterday. PHYSICAL EXAM: She is well-hydrated and well-nourished appearing. Temperature most recently is 98.4 orally, it was 100 earlier this morning. Blood pressure is running around 110 to 130 systolic/50 to 70 diastolic, it was 107/60 when she came in. Heart rate is in the 80s and regular and respiratory rate is about 20. Oxygen saturation is 97%. Heart is in a regular rate and rhythm and I do not hear any murmurs. Carotid pulses are present and there is a left carotid bruit. Lungs are clear bilaterally. Oral mucosa is moist. Head is atraumatic. Neurologic Exam: Pupils react equally from 3.5 to 2.5 mm. Eye movements and visual solis are normal. Facial musculature and facial sensation is symmetric. Palate and tongue appeared normal and there is no dysarthria. Funduscopic exam is unremarkable. Hearing is intact bilaterally. Motor Exam: She has normal strength and tone in the upper and lower extremities other than mild hip flexor weakness and grade 4+ range bilaterally. There is no spasticity. Sensory exam is intact to pin and light touch in all 4 extremities. Reflexes are brisk in the upper extremities at the knees, trace at the ankles. Plantar responses are flexor bilaterally. There is a mild sustention tremor in the hands. There is no rest or action tremor. Finger-to- nose maneuver is normal. Finger taps are normal in the hands. She is alert and oriented and is a good detailed historian. Memory is intact and language is fluent. She has good attention, concentration, and adequate fund of knowledge. DIAGNOSTIC STUDIES/LAB DATA: Includes an MRI of the brain, which I reviewed. It is interpreted as showing a new right paraventricular subcortical small vessel infarction compared to a prior study of April 2016. Laboratory data is notable for an elevated white blood cell count of 20.9 yesterday, down to 14.2 today. Platelet count is down to 143 today, hemoglobin is normal. Chemistry is notable for a sodium of 126 yesterday, down to 124 today. Potassium is down to 3.2. Creatinine was 1.57 when she came in, it is down to 0.85 today. Cholesterol this morning 157, LDL 89. Magnesium is a bit low at 1.7 yesterday, up to 2.0 today. Total bilirubin slightly elevated at 1.8. IMPRESSION AND PLAN: Possible transient ischemic attack in the setting of pneumonia, possibly dehydration and hypotension, maybe from her left carotid stenosis. I recommend a carotid ultrasound. She may have just been symptomatic because of dehydration and low blood pressure, but I would like to get a reassessment of the prior finding. I do not think anything needs to be changed in terms of her antiplatelet therapy and will remain on Plavix. She should be kept well hydrated. She did not tolerate statins and her lipid profile was not too bad, so I think I would not rechallenge her with that. Further recommendations will depend upon her clinical course and results of her carotid ultrasound. [id number]/[facility] #: [id number] VINICIUS
--- NOTE | 2017-02-19 21:46 | PN ---
Subjective Date of Service: 02/19/17 Interval History: Patient has no acute complaints. Patient coughing intermittently and producing purulent sputum which was obtained for a sample. Mild CP which is sometimes pleuritic and intermittent. Patient denies dysuria, N/V, F/C, abdominal pain, diarrhea, constipation, dizziness at rest or with standing during the examination. Family History: Unchanged from Admission Social History: Unchanged from Admission Past Medical History: Unchanged from Admission Objective Active Medications: Acetaminophen (Tylenol Tab*) 650 mg PO Q6H PRN PRN Reason: FEVER/PAIN Last Admin: 02/19/17 20:07 Dose: 650 mg Albuterol (Ventolin Hfa Inhaler*) 2 puff INH Q4H PRN PRN Reason: SHORTNESS OF BREATH Clopidogrel Bisulfate (Plavix Tab*) 75 mg PO DAILY [facility] Last Admin: 02/19/17 09:16 Dose: 75 mg Folic Acid (Folvite Tab*) 1 mg PO DAILY [facility] Last Admin: 02/19/17 09:16 Dose: 1 mg Heparin Sodium (Porcine) (Heparin Vial(*)) 5,000 units SUBCUT Q8HR [facility] Last Admin: 02/19/17 20:09 Dose: 5,000 units Hydroxyzine HCl (Atarax Tab*) 25 mg PO Q6HR PRN PRN Reason: ITCHING Sodium Chloride (Ns 0.9% 1000 Ml*) 1,000 mls @ 125 mls/hr IV PER RATE [facility] Last Admin: 02/19/17 19:58 Dose: 125 mls/hr Ceftriaxone Sodium 1,000 mg/ (Dextrose) 50 mls @ 200 mls/hr IVPB Q24H [facility] Last Admin: 02/18/17 23:44 Dose: 200 mls/hr Azithromycin 500 mg/ Sodium (Chloride) 250 mls @ 250 mls/hr IVPB Q24H [facility] Last Admin: 02/19/17 00:09 Dose: 250 mls/hr Metoprolol Tartrate (Lopressor Tab*) 50 mg PO BID [facility] Last Admin: 02/19/17 20:08 Dose: 50 mg Mometasone Furoate/Formoterol Fumar (Dulera 200/5 Mdi*) 2 puff INH BID [facility] Last Admin: 02/19/17 09:01 Dose: 2 puff Multivitamins/Minerals (Theragran/Minerals Tab*) 1 tab PO DAILY [facility] Last Admin: 02/19/17 09:17 Dose: 1 tab Nicotine (Nicotine Patch 14 Mg/24 Hr*) 1 patch TRANSDERM DAILY [facility] Last Admin: 02/19/17 09:17 Dose: 1 patch Pharmacy Profile Note (Nicotine Patch Removal Note*) 1 note FOLLOW UP 0600 [facility] Last Admin: 02/19/17 05:06 Dose: 1 note Potassium Chloride (Klor Con Er Tab*) 20 meq PO BID [facility] Last Admin: 02/19/17 20:08 Dose: 20 meq Thiamine HCl (Vitamin B-1 Tab*) 100 mg PO DAILY [facility] Last Admin: 02/19/17 09:17 Dose: 100 mg Tiotropium [place] (Spiriva Cap.Inh*) 1 cap INH DAILY [facility] Last Admin: 02/19/17 09:01 Dose: 1 cap Vital Signs - 8 hr 02/19/17 02/19/17 02/19/17 15:34 16:19 19:39 Temperature 99.4 F 99.5 F Pulse Rate 93 95 101 Respiratory 19 17 Rate Blood Pressure 142/64 133/83 153/65 (mmHg) O2 Sat by Pulse 98 100 94 Oximetry Oxygen Devices in Use Now: None Appearance: Patient is a 66yo female who appears stated age and is sitting in the bed in [facility]. Eyes: No Scleral Icterus, PERRLA Ears/Nose/Mouth/Throat: NL Teeth, Lips, Gums, Clear Oropharnyx, Mucous Membranes Moist Neck: NL Appearance and Movements; NL JVP, Trachea Midline Respiratory: Symmetrical Chest Expansion and Respiratory Effort, - - Diffuse Rhonchi and Mild intermittent wheezes. Cardiovascular: NL Sounds; No Murmurs; No JVD, RRR, - - 1+ edema in B/L LE. Abdominal: NL Sounds; No Tenderness; No Distention Lymphatic: No Cervical Adenopathy Extremities: No Clubbing, Cyanosis Skin: No Rash or Ulcers Neurological: Alert and Oriented x 3, NL Sensation, NL Gait, NL Muscle Strength and Tone, - - CN II-XII intact. Gait normal, able to heel and toe walk. Romberg negative, no drift, no dysdiadochokinesis, babinski's downgoing B/L. Reflexes 2 + in biceps, patellar and 1+ in achilles tendons. Result Diagrams: 02/19/17 06:42 02/19/17 06:42 Microbiology and Other Data: Microbiology 02/19/17 08:52 Gram Stain - Final Sputum Expectorated 02/19/17 03:04 Legionella Urinary Antigen - Final Urine Negative Legionella Streptococcus pneumoniae Ag Screen - Final Negative S. pneumo Antigen Assess/Plan/Problems-Billing Assessment: Patient is a 66yo female with a PMH significant for CVA, CAD, COPD, HTN who presents with intermittent weakness of RLE and Pneumonia. Patient is being treated for Pneumonia and monitored for new Neurological deficits. - Patient Problems (1) Symptomatic carotid artery stenosis Current Visit: Yes Status: Acute Code(s): I65.29 - OCCLUSION AND STENOSIS OF UNSPECIFIED CAROTID ARTERY SNOMED Code(s): 9009432427938 Comment: Appreciate Neurology consult. Stenosis 50-70% in Right Carotid, Greater than 70% in Left Carotid. Likely cause of intermittent weakness in conjunction with hypotension and dehydration. Not emergent, follow up outpatient with vascular surgeon when not actively ill. Continue Plavix. No tolerant of statins and LDL below 100. (2) CAP (community acquired pneumonia) Current Visit: Yes Status: Acute Code(s): J18.9 - PNEUMONIA, UNSPECIFIED ORGANISM SNOMED Code(s): 349510505 Comment: Infiltrate, Leukocytosis and fever with increase in purulent sputum. Continue empiric antibiotics in Ceftriaxone and Azithromycin Continue fluids for BP support. (3) Hypertension Current Visit: No Status: Chronic Priority: Medium Code(s): I10 - ESSENTIAL (PRIMARY) HYPERTENSION SNOMED Code(s): 48768965 Comment: Hold Metoprolol, Spironolactone, and Norvasc due to hypotension. (4) Dehydration Current Visit: Yes Status: Acute Code(s): E86.0 - DEHYDRATION SNOMED Code( s): 98509236 Comment: Dehydrated per patient. Orthostatic, dizzy with walking in evening. Continue fluids and hold antihypertensives. (5) CVA (cerebral vascular accident) Current Visit: No Status: Acute Code(s): I63.9 - CEREBRAL INFARCTION, UNSPECIFIED SNOMED Code(s): 919057343 Comment: Appreciate Neurology assistance. MRI shows new area or infarct which is not new. No new deficits. Continue plavix. 30 day event monitor showed no Afib. No need to repeat echo. (6) COPD (chronic obstructive pulmonary disease) Current Visit: No Status: Chronic Priority: Medium Code(s): J44.9 - CHRONIC OBSTRUCTIVE PULMONARY DISEASE, UNSPECIFIED SNOMED Code(s): 03300590 Comment: Continue Spiriva, Dulera, prn albuterol (7) DVT prophylaxis Current Visit: No Status: Acute Code(s): TSZ0386 - SNOMED Code(s): 208625793 Comment: HSQ (8) Full code status Current Visit: Yes Status: Acute Code(s): Z78.9 - OTHER SPECIFIED HEALTH STATUS SNOMED Code(s): 877127605
[2017-02-19] MEDS: cefTRIAXone VIAL(*) 1,000 MG in D5W 50 ML BAG* 50 ML IVPB SCH (22:38)
[2017-02-19] MEDS ORDERED: Ondansetron INJ* 2 MG/ML VIAL IV PRN (23:47)
[2017-02-20] MEDS: NS 0.9% 1000 ML* 1,000 ML IV SCH (04:58)
[2017-02-20] MEDS: Heparin VIAL(*) 5000 UNITS/ML VIAL (FIVE THOUSAND) SUBCUT SCH ×2 (05:27→14:08)
[2017-02-20] MEDS: Nicotine Patch Removal NOTE FOLLOW UP SCH (05:28)
[2017-02-20 05:33] LABS: Hematocrit 34 % (35-47); Hemoglobin 11.5 g/dl (12.0-16.0); Mean Corpuscular HGB Conc 34 g/dl (31-36); Mean Corpuscular Hemoglobin 32 pg (27-31); Mean Corpuscular Volume 94 fL (80-97); Red Blood Count 3.65 10^6/ul (4.0-5.4); Red Cell Distribution Width 13 % (10.5-15); White Blood Count 14.5 10^3/ul (3.5-10.8)
[2017-02-20 05:36] LABS: Comments Flag Yes
[2017-02-20 05:37] LABS: Add Diff/Slide Review? Slide Review Added
[2017-02-20 05:51] LABS: BUN/Creatinine Ratio 12.1 (8-20); Calcium 8.6 mg/dL (8.6-10.3); EGFR African American 115.2 (>60); EGFR Non-African American 89.6 (>60); Magnesium 1.8 mg/dL (1.9-2.7); Potassium 4.2 mmol/L (3.5-5.0)
[2017-02-20 07:10] LABS: Mean Platelet Volume 9 um3 (7.4-10.4)
[2017-02-20] MEDS: Mometasone/Formoter 200/5 MDI INH SCH (07:23)
[2017-02-20] MEDS: Tiotropium CAP.INH* CAP.INH/18 MCG (USE ORDER SET !) INH SCH (07:23)
[2017-02-20] MEDS ORDERED: Magnesium Sulfate 1 GM IV* 1 GM/100 ML BAG IV ONE (08:00)
[2017-02-20] MEDS: Potassium Chlor TAB* 20 MEQ TAB.ER PO SCH (08:35)
[2017-02-20] MEDS: Multivitamins/Minerals TAB PO SCH (08:35)
[2017-02-20] MEDS: Folic Acid TAB* 1 MG PO SCH (08:35)
[2017-02-20] MEDS: Clopidogrel TAB* 75 MG PO SCH (08:35)
[2017-02-20] MEDS: Nicotine PATCH 14 MG/24 HR* PATCH TRANSDERM SCH (08:36)
[2017-02-20] MEDS: Metoprolol Tartrate TAB* 50 mg PO SCH (08:36)
[2017-02-20] MEDS: Thiamine TAB* 100 MG TAB PO SCH (08:36)
[2017-02-20 15:03] VITALS: BP 142/82
--- NOTE | 2017-02-20 18:36 | CONS ---
NEUROLOGY FOLLOWUP: DATE OF FOLLOWUP: 02/20/17 LOCATION: She is in room 432. CHIEF COMPLAINT: Episode of right leg weakness, pneumonia. INTERVAL HISTORY: Since yesterday, Ms. Sanders feels well and wants to go home. She has been afebrile today. She remains on ceftriaxone. She has not had any episodes of right leg weakness since she came in. Her blood pressure has been stable. She had an ultrasound of the carotids yesterday, interpreted as showing 50% to 70% stenosis of the right internal carotid and greater than 70% of the left. I reviewed the images and also the velocities and peak systolic on the left is 441 consistent with pretty significant stenosis. I discussed the findings with her and my impression is that she probably had a low- flow TIA. I think that as an outpatient when she has completely recovered from her pneumonia, she should see a vascular surgeon for a possible endarterectomy. I do not think it is urgent and I encouraged her to remain well hydrated at home, and I will see her in followup in my office to discuss a referral. [id number]/[facility] #: [id number] VINICIUS
[2017-02-20] MEDS ORDERED: Azithromycin IV(*) 250 MG in NS 0.9% 250 ML* 250 ML IVPB SCH (23:00)
--- NOTE | 2017-02-21 11:20 | DS ---
CC: Claire Kelley MD; Edvin Donis MD * DATE OF ADMISSION: 02/18/17. DATE OF DISCHARGE: 02/20/17. PRIMARY CARE PHYSICIAN: Claire Kelley M.D. ATTENDING PHYSICIAN WHILE IN THE HOSPITAL: Dr. Abby Acsota * (dictated by RAY Larios). W[employer] J[employer]ER NEUROLOGIST: Edvin Donis MD. PRIMARY DISCHARGE DIAGNOSES: 1. Community-acquired pneumonia. 2. Dehydration. 3. Hypotension, symptomatic. 4. Carotid stenosis. SECONDARY DIAGNOSES: History of cerebrovascular accident, chronic obstructive pulmonary disease, coronary artery disease, hyperlipidemia, hypertension. STUDIES DONE WHILE IN THE HOSPITAL: Chest x-ray done from 02/18/17 read as new left upper lobe nodular infiltrate change and hyperinflation, suggest followup. Electrocardiogram from 02/18/17 read as sinus rhythm, T-wave flattening/ inversion in the lateral leads, normal axis, no blocks, no other abnormalities. EKG from 02/19/17 shows resolution of T-wave inversions in V1, V2, V3, V5, and V6. No other significant changes from previous study. Brain CT from read as focal brain clinical findings, presumably related to prior CVA, and more conspicuous on this examination, does not appear acute. Brain MRI from 07/02 read as MRI findings are compatible for at least 1 new acute ischemic focus in the right basal ganglia, amidst multiple foci of chronic infarct seen on 05/04/13. This was over- read by the neurologist to say that this is not a new. They likely represent nonacute infarct. Carotid Doppler study from read as 50% to 70% stenosis of the right internal carotid artery greater than 70% stenosis in the left internal carotid artery. MEDICATIONS AT DISCHARGE: 1. Fexofenadine 100 mg p.o. daily. 2. Advair Diskus 550 one puff inhalation b.i.d. 3. Plavix 75 mg p.o. daily. 4. Spiriva 1 cap inhalation daily. 5. [place]-3 fatty acid 2 caps p.o. daily. 6. Metoprolol tartrate 50 mg p.o. b.i.d. 7. Hydroxyzine 25 mg p.o. q. 6 hours as needed. 8. Albuterol 2 puffs inhalation q. 4 hours as needed. 9. Multivitamin 1 cap p.o. daily. 10. Erythromycin 200 mg p.o. daily x3. 11. Cefpodoxime 200 mg p.o. q. 12 hours x10. New medications at discharge: Erythromycin, cefpodoxime. Medications discontinued at discharge: Amlodipine 2.5 mg p.o. daily, spironolactone 25 mg p.o. daily. HOSPITAL COURSE: This is a brief summary of the patient's presentation. For more details, please see the history and physical from [facility] Monte[facility] on 02/18/17. In brief, patient is a 66-year-old female with a past medical history as above, who presents with right lower extremity weakness for 1 day with her right leg giving out. Patient has baseline right-sided weakness. Patient had two falls related to this, she also felt dizzy and shaky. Patient has a chronic cough, but has had an increase in the purulence of her sputum. Patient in the emergency room was found to have a left upper lobe nodular infiltrate read as above, acute kidney injury, and white blood cell count 20.9. Patient is admitted for presumed community-acquired pneumonia and rule out CVA. Brain MRI was obtained as above. Neurology was consulted. Patient's blood pressure was relatively low. When she was admitted to the hospital, she was given fluids and it slowly increased; however, she has remained tachycardic and was orthostatic on examination. The patient had no weakness at rest, but when ambulating around the unit with the nurse, was found to have continued weakness and some lightheadedness. Patient's fluids were continued and throughout her hospital stay, she was positive almost 3 L. Neurology was consulted and stated that he did believe that the infarct on the brain MRI was new, that this was likely related to known carotid stenosis and a carotid ultrasound was read as above, which is a moderate progression from her previous CVA from April of this year. It was determined that this was not an urgent issue and that the patient would not be a good candidate for endarterectomy anyway due to her community acquired pneumonia. Patient improved over the course of the hospitalization from a respiratory standpoint with decreased cough and general improvement in energy level and patient was amenable to being discharged on the day of 02/20/17 with outpatient antibiotics, follow up with her neurologist, and referral to vascular surgeon when she was more stable to be a candidate for surgery. Patient's urine legionella and Streptococcus pneumoniae were negative. Patient provided sputum culture which is still pending. Patient's urine culture was negative. Patient's blood cultures were negative. Patient's white blood cell count decreased from 20.9 to 14.5 on the day of her discharge. Patient's hyponatremia, hypokalemia, hypomagnesemia have all resolved. Patient's LDL cholesterol was 89. PHYSICAL EXAMINATION ON THE DAY OF DISCHARGE: General: The patient is a 66- year- old female who appears her stated age and is sitting comfortably in bed in no acute distress. Vital Signs: At discharge, temperature 98.6, heat rate 79, respiratory rate 16, oxygen saturation 100% on room air, blood pressure 141 /60. HEENT: Head normocephalic, atraumatic. Sclerae anicteric. No conjunctival injection. Nasal and oral mucosa pink and moist without discharge. No pharyngeal erythema, postnasal drip, or exudates. No Nasal secretion. Neck: Supple, nontender. No lymphadenopathy. No carotid bruit auscultated. No JVD. Cardiac: Regular rate and rhythm. No clicks, murmurs, gallops or rubs. Pulse is 2+ in bilateral dorsalis pedis, posterior tibialis, and radial areas. Respiratory: Clear to auscultation bilaterally. No wheezes , rales, or rhonchi. Good air exchange bilaterally. Abdomen: Soft, nontender, nondistended. Bowel sounds are present. Normoactive in all four quadrants. No abdominal bruits auscultated. Genitourinary: No CVA tenderness or suprapubic tenderness. Skin: Clean, dry, intact. No rash. Neuro: Cranial nerves II through XII intact. Extraocular movement is intact with nystagmus. Visual solis normal to confrontation. Strength 5/5 bilaterally in the upper extremities distally and proximally. Sensation is intact to light touch the upper extremity distally and proximally. There is 4/5 strength bilaterally in the lower extremities, distally and proximally, without asymmetry. Sensation intact to light touch distally and proximally. Reflexes 2+ in bilateral biceps , patellar, and Achilles tendons. Babinski is downgoing bilaterally. Psychiatric: Pleasant and cooperative. LABORATORY DATA: On the day of discharge white blood cell count 14.5, hemoglobin 11.5, platelet count 108. Sodium 130, potassium 4.2, chloride 103, carbon oxide 19, creatinine 0.66, glucose 100, magnesium 1.8, calcium 8.6. Other pertinent lab values from admission, troponin I x3 at 0.03, 0.00, 0.01. Serum alcohol below 10. DISCHARGE PLAN: The patient will be discharged to home with close followup with her primary care provider. Patient will have her antihypertensive medication except for amlodipine held as above. Patient should discuss restarting her medications with her primary care provider at her next appointment, which should be within 1 week. Patient due to her carotid stenosis should avoid dehydration and hypotension as much as possible. Patient should take antibiotics prescribed as above. Patient should continue with her medications for her COPD. Patient's LDL cholesterol was less than 100 in the hospital and she is intolerant to multiple statins and no lipid-lowering medications were started at this time. Patient is to follow up with her neurologist, Dr. Donis, and obtain a referral to a vascular surgeon to assess the appropriateness of carotid endarterectomy. Patient should return to the hospital for new neurological deficits, chest pain, severely increased shortness of breath, fevers unresponsive to Tylenol and Motrin, or other alarming symptoms. Patient should engage in activity as tolerated. Patient should have a heart-healthy diet and avoid caffeine. TIME SPENT: Approximately 60 minutes was spent on this discharge, 30 of which was spent [id number] with the patient obtaining history and physical and discussing treatment plan. RAY LARIOS [id number]/[facility] #: [id number] VINICIUS
== END 2017-02-20 16:12 | disposition home or self-care (01) | DRG 194 ==
LOC: ED 18:33 → MEDTELE 20:47
PROVIDERS: ADMIT Hospitalist; ATTEND Internal Medicine
DX: J18.9 Pneumonia, unspecified organism (principal); E87.1 Hypo-osmolality and hyponatremia; N17.9 Acute kidney failure, unspecified; I95.9 Hypotension, unspecified; I65.23 Occlusion and stenosis of bilateral carotid arteries; E83.42 Hypomagnesemia; J44.0 Chronic obstructive pulmonary disease with (acute) lower respiratory infection; F32.9 Major depressive disorder, single episode, unspecified; I10 Essential (primary) hypertension; E11.9 Type 2 diabetes mellitus without complications; F17.210 Nicotine dependence, cigarettes, uncomplicated; L50.9 Urticaria, unspecified; I25.10 Atherosclerotic heart disease of native coronary artery without angina pectoris; R53.1 Weakness; E80.7 Disorder of bilirubin metabolism, unspecified; E86.0 Dehydration; E78.5 Hyperlipidemia, unspecified; Z86.73 Personal history of transient ischemic attack (TIA), and cerebral infarction without residual deficits; Z91.040 Latex allergy status; Z90.710 Acquired absence of both cervix and uterus; Z90.49 Acquired absence of other specified parts of digestive tract; Z23 Encounter for immunization; Z88.8 Allergy status to other drugs, medicaments and biological substances; Z83.3 Family history of diabetes mellitus; Z80.0 Family history of malignant neoplasm of digestive organs; Z82.49 Family history of ischemic heart disease and other diseases of the circulatory system; Z79.02 Long term (current) use of antithrombotics/antiplatelets; E87.6 Hypokalemia
CPT/HCPCS: 36415; 70450; 70551; 71010; 80048; 80053; 80061; 80320; 81003; 81015; 82550; 83735; 84484; 85025; 85610; 85730; 87040; 87070; 87077; 87086; 87186; 87205; 87899; 90686; 90732; 93005; 93880; 94640; A9270-GY; G0480; J0456; J0696; J1644; J3475

== ENCOUNTER 2017-02-24 13:29 | Emergency (ER) | payer MEDICARE ==
[2017-02-24 14:19] LABS: Hematocrit 33 % (35-47); Hemoglobin 11.2 g/dl (12.0-16.0); Mean Corpuscular HGB Conc 34 g/dl (31-36); Mean Corpuscular Hemoglobin 32 pg (27-31); Mean Corpuscular Volume 93 fL (80-97); Mean Platelet Volume 8 um3 (7.4-10.4); Red Blood Count 3.54 10^6/ul (4.0-5.4); Red Cell Distribution Width 14 % (10.5-15); White Blood Count 6.2 10^3/ul (3.5-10.8)
[2017-02-24 14:34] LABS: Albumin 3.1 g/dL (3.2-5.2); BUN/Creatinine Ratio 16.4 (8-20); Calcium 9.5 mg/dL (8.6-10.3); EGFR African American 113.3 (>60); EGFR Non-African American 88.1 (>60); Globulin 3.3 g/dL (2-4); HDL Cholesterol 23.4 mg/dL; Potassium 3.9 mmol/L (3.5-5.0); Total Bilirubin 0.4 mg/dL (0.2-1.0); Total Protein 6.4 g/dL (6.4-8.9)
[2017-02-24 14:36] LABS: Troponin I 0.03 ng/mL (<0.04)
--- NOTE | 2017-02-24 14:53 | RAD ---
Indication: RIGHT-sided weakness. Speech disturbance. Comparison: February 18, 2017 CT and MRI. Technique: Noncontrast CT vertex of skull through foramen magnum. Report: Mild prominence of the cerebral sulci and cerebellar fissures. Small lacunar infarcts at the RIGHT frontal lobe, bilateral caudate heads and RIGHT basal ganglia without change. Mild calcification at the basal ganglia. Unremarkable ventricles and basal cisterns. No new region of zuniga matter white matter obscuration, intra or extra-axial hemorrhage, or mass effect. Unremarkable visualized orbital contents. No suspicious calvarial or skull base lesions evident. Clear visualized paranasal sinuses and mastoid air spaces. Unremarkable scalp. IMPRESSION: 1. No acute intracranial process evident. 2. Multiple small lacunar infarcts as noted. 3. Mild involutional change.
[2017-02-24] MEDS ORDERED: Iohexol 350* (CONTRAST) 500 ML MDV IV ONE (16:26)
--- NOTE | 2017-02-24 18:09 | RAD ---
INDICATION: Speech and aphasia and RIGHT lower extremity weakness. COMPARISON: Noncontrast head CT 1416 hours of the same date. May 04, 2016 CT angiogram. TECHNIQUE: Multidetector CT images were obtained from the aortic arch to the vertex of the head with 80 mL Omnipaque 350 IV contrast. Arterial phase of enhancement. Multiplanar reformation including maximum intensity projection. 3-D arterial volume rendering. Stenosis estimations based on denominator of distal arterial diameter. NECK ANGIOGRAM REPORT: Airspace consolidation superimposed on chronic obstructive pulmonary disease and emphysema at the visualized LEFT upper lobe new compared with the May 04, 2016 exam. Normal configuration of the branch vessels at the aortic arch. Calcific plaque results in approximate 50% ostial stenosis at the LEFT subclavian artery without gross change. Noncalcific plaque at the mid RIGHT common carotid artery results in approximate 50% stenosis with mild interval worsening. Negative for RIGHT internal carotid artery stenosis. Limited assessment of the proximal LEFT common carotid artery due to beam hardening artifact from contrast in the LEFT brachiocephalic vein. Calcific and noncalcific plaque at the distal LEFT common carotid artery results in approximate 50% stenosis without change. Calcific and noncalcific plaque at the LEFT carotid bulb and proximal internal carotid artery results in short segment 90% stenosis without significant change. Chronic occlusion of the RIGHT vertebral artery. Patent LEFT vertebral artery. Retrograde filling of the distal RIGHT vertebral artery and posterior inferior cerebellar artery from the LEFT vertebral artery. Multilevel cervical spine degenerative spondylosis and facet joint osteoarthritis. Associated mild central canal stenosis at C3-C4. NECK ANGIOGRAM IMPRESSION: 1. Approximate 50% ostial stenosis at the LEFT subclavian artery without change. 2. Approximate 50% stenosis at the mid RIGHT common carotid artery with interval worsening. 3. Approximate 50% stenosis at the distal LEFT common carotid artery without change. Approximate 90% stenosis at the LEFT carotid bulb and proximal internal carotid artery increased over the prior exam. 4. Chronic occlusion of the RIGHT vertebral artery. Patent LEFT vertebral artery with retrograde supply to the RIGHT posterior inferior cerebellar artery. HEAD ANGIOGRAM REPORT: Approximate 50% stenosis of the RIGHT internal carotid artery at the carotid canal. Small caliber although patent M1 and M2 segments of the RIGHT middle cerebral artery. Small caliber although patent M1 and M2 segments of the LEFT middle cerebral artery. No RIGHT anterior cerebral artery A1 segment visualized. Bilateral A2 segments are supplied by a LEFT A1 segment with patent anterior communicating artery. Unremarkable basilar artery and cerebellar artery origins. Patent posterior cerebral arteries are supplied primarily by the posterior circulation with hypoplastic posterior communicating arteries. High-grade short segment stenosis at the P1 segment of the RIGHT posterior cerebral artery and moderate grade stenosis at the P1 segment of the RIGHT posterior cerebral artery without significant change. No intracranial aneurysm evident. No arterial phase enhancing intracranial lesions evident. HEAD ANGIOGRAM IMPRESSION: 1. Approximate 50% stenosis of the RIGHT internal carotid artery at the carotid canal without change. 2. Small caliber although patent bilateral middle cerebral artery M1 and M2 segments. 3. High-grade short segment stenosis at the P1 segment of the RIGHT posterior cerebral artery and moderate grade stenosis at the P1 segment of the RIGHT posterior cerebral artery without significant change. CPT II: CPT II Codes: 3100F
[2017-02-24 18:26] LABS: Urine Bacteria Absent (Absent); Urine Bilirubin Negative (Negative); Urine Glucose Negative (Negative); Urine Nitrite Negative (Negative)
[2017-02-24] MEDS ORDERED: cefTRIAXone(*) 1 GM in NS 0.9% 50 ML* 50 ML IVPB ONE (18:28)
--- NOTE | 2017-02-24 18:48 | ED ---
Dennis Alvarado Alfonso, scribed for Yahir Osman MD on 02/24/17 at 1355 . Neurological HPI - HPI Summary HPI Summary: This patient is a 66 year old F presenting to [facility] accompanied by daughter with a chief complaint of RLE tremors since 829 today. She was admitted to [facility] from 02/18/17 to 02/20/17 with PRIMARY DISCHARGE DIAGNOSES: 1. Community- acquired pneumonia. 2. Dehydration. 3. Hypotension, symptomatic. 4. Carotid stenosis. SECONDARY DIAGNOSES: History of cerebrovascular accident, chronic obstructive pulmonary disease, coronary artery disease, hyperlipidemia, hypertension. The patient rates the pain 0/10 in severity. 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 Symptoms alleviated by nothing. Daughter reports difficulty ambulating, intermittent dizziness, and confusion. 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 - Additional Pertinent History Primary Care Physician: JIMMY - Allergy/Home Medications Allergies/Adverse Reactions: Allergies Allergy/AdvReac Type Severity Reaction Status Date / Time Latex Allergy Blisters Verified 12/18/16 13:59 PMH/Surg Hx/FS Hx/Imm Hx Endocrine/Hematology History: Denies: Hx Diabetes Cardiovascular History: Reports: Hx Angina, Hx Hypertension Denies: Hx Congestive Heart Failure, Hx Pacemaker/ICD Respiratory History: Reports: Hx Asthma, Hx Chronic Obstructive Pulmonary Disease (COPD) GI History: Reports: Other GI Disorders - DIVERTICULITIS History: Reports: Hx Kidney Infection, Other Problems/Disorders - HX MILD RENAL INSUFFICIENCY Denies: Hx Renal Disease Musculoskeletal History: Reports: Other Musculoskeletal History - RHEUMATOID ARTHRITIS Sensory History: Denies: Hx Contacts or Glasses, Hx Hearing Aid Opthamlomology History: Denies: Hx Contacts or Glasses, Hx Legally Blind EENT History: Denies: Hx Deafness Neurological History: Reports: Hx Transient Ischemic Attacks (TIA) - current dx Psychiatric History: Denies: Hx Panic Disorder - Cancer History Cancer Type, Location and Year: skin on finger--removed - Surgical History Surgery Procedure, Year, and Place: HYSTERECTOMY, OOPHRECTOMY, APENDECTOMY, CHOLECYSTECTOMY,TONSILECTOMY,URINARY TRACT SURGERY Hx Anesthesia Reactions: No - Immunization History Date of Tetanus Vaccine: current Date of Influenza Vaccine: 2016 Infectious Disease History: No Infectious Disease History: Denies: Traveled Outside the [place] in Last 30 Days - Family History Known Family History: Positive: Cardiac Disease, Hypertension, Diabetes, Respiratory Disease - COPD, Other - stroke - Social History Alcohol Use: Weekly Alcohol Amount: 3 drinks every so often Hx Substance Use: No Substance Use Type: Reports: None Hx Tobacco Use: Yes Smoking Status (MU): Heavy Every Day Tobacco Smoker Type: Cigarettes Length of Time of Smoking/Using Tobacco: 50 years Have You Smoked in the Last Year: Yes Review of Systems Negative: Fever Neurological: Other - RLE tremors, difficulty ambulating, intermittent dizziness , and confusion. All Other Systems Reviewed And Are Negative: Yes Physical Exam - Summary Physical Exam Summary: VITAL SIGNS: Reviewed. GENERAL: Patient is a well-developed and nourished female who is lying comfortable in the stretcher. Patient is not in any acute respiratory distress. HEAD AND FACE: No signs of trauma. No ecchymosis, hematomas or skull depressions. No sinus tenderness. EYES: PERRLA, EOMI x 2, No injected conjunctiva, no nystagmus. No photophobia. EARS: Hearing grossly intact. Ear canals and tympanic membranes are within normal limits. MOUTH: Oropharynx within normal limits. NECK: Supple, trachea is midline, no adenopathy, no JVD, no carotid bruit, no c- spine tenderness, neck with full ROM. No meningeal signs, no Kernig's or brudzinskis signs. CHEST: Symmetric, no tenderness at palpation LUNGS: Clear to auscultation bilaterally. No wheezing or crackles. CVS: Regular rate and rhythm, S1 and S2 present, no murmurs or gallops appreciated. ABDOMEN: Soft, non-tender. No signs of distention. No rebound no guarding, and no masses palpated. Bowel sounds are normal. EXTREMITIES: FROM in all major joints, no edema, no cyanosis or clubbing. NEURO: Alert and oriented x 3. See NIH scale. Expressive aphasia. SKIN: Dry and warm GCS: 15 Triage Information Reviewed: Yes Vital Signs On Initial Exam: Initial Vitals Temp Pulse Resp BP Pulse Ox 97.4 F 72 17 133/68 97 02/24/17 13:42 02/24/17 13:42 02/24/17 13:42 02/24/17 13:42 02/24/17 13:42 Vital Signs Reviewed: Yes - [place] Coma Scale Coma Scale Total: 15 Diagnostics - Vital Signs Vital Signs Temp Pulse Resp BP Pulse Ox 02/24/17 13:51 72 16 95 02/24/17 13:42 97.4 F 72 17 133/68 97 - Laboratory Lab Results: Lab Results 02/24/17 02/24/17 02/24/17 Range/Units 14:08 14:08 14:08 WBC 6.2 (3.5-10.8) 10^3/ul RBC 3.54 L (4.0-5.4) 10^6/ul Hgb 11.2 L (12.0-16.0) g/dl Hct 33 L (35-47) % MCV 93 (80-97) fL MCH 32 H (27-31) pg MCHC 34 (31-36) g/dl RDW 14 (10.5-15) % Plt Count 312 (150-450) 10^3/ul MPV 8 (7.4-10.4) um3 Neut % (Auto) 69.4 (38-83) % Lymph % (Auto) 15.2 L (25-47) % [place] % (Auto) 12.5 H (1-9) % Eos % (Auto) 1.9 (0-6) % Baso % (Auto) 1.0 (0-2) % Absolute Neuts (auto) 4.3 (1.5-7.7) 10^3/ul Absolute Lymphs (auto) 0.9 L (1.0-4.8) 10^3/ul Absolute Monos (auto) 0.8 (0-0.8) 10^3/ul Absolute Eos (auto) 0.1 (0-0.6) 10^3/ul Absolute Basos (auto) 0.1 (0-0.2) 10^3/ul Absolute Nucleated RBC 0 10^3/ul Nucleated RBC % 0 INR (Anticoag Therapy) 1.13 H (0.77-1.02) Sodium 134 (133-145) mmol/L Potassium 3.9 (3.5-5.0) mmol/L Chloride 101 (101-111) mmol/L Carbon Dioxide 25 (22-32) mmol/L Anion Gap 8 (2-11) mmol/L BUN 11 (6-24) mg/dL Creatinine 0.67 (0.51-0.95) mg/dL Est GFR ( Amer) 113.3 (>60) Est GFR (Non-Af Amer) 88.1 (>60) BUN/Creatinine Ratio 16.4 (8-20) Glucose 95 (70-100) mg/dL Lactic Acid (0.5-2.0) mmol/L Calcium 9.5 (8.6-10.3) mg/dL Total Bilirubin 0.40 (0.2-1.0) mg/dL AST 38 (13-39) U/L ALT 35 (7-52) U/L Alkaline Phosphatase 80 (34-104) U/L Troponin I 0.03 (<0.04) ng/mL Total Protein 6.4 (6.4-8.9) g/dL Albumin 3.1 L (3.2-5.2) g/dL Globulin 3.3 (2-4) g/dL Albumin/Globulin Ratio 0.9 L (1-3) Triglycerides 133 mg/dL Cholesterol 140 mg/dL LDL Cholesterol 90 mg/dL HDL Cholesterol 23.4 mg/dL Urine Color Urine Appearance Urine pH (5-9) Ur Specific [place] (1.010-1.030) Urine Protein (Negative) Urine Ketones (Negative) Urine Blood (Negative) Urine Nitrate (Negative) Urine Bilirubin (Negative) Urine Urobilinogen (Negative) Ur Leukocyte Esterase (Negative) Urine WBC (Auto) (Absent) Urine RBC (Auto) (Absent) Ur Squamous Epith Cells (Absent) Urine Bacteria (Absent) Urine Glucose (Negative) Blood Type Antibody Screen 02/24/17 02/24/17 02/24/17 Range/Units 14:08 14:08 17:59 WBC (3.5-10.8) 10^3/ul RBC (4.0-5.4) 10^6/ul Hgb (12.0-16.0) g/dl Hct (35-47) % MCV (80-97) fL MCH (27-31) pg MCHC (31-36) g/dl RDW (10.5-15) % Plt Count (150-450) 10^3/ul MPV (7.4-10.4) um3 Neut % (Auto) (38-83) % Lymph % (Auto) (25-47) % [place] % (Auto) (1-9) % Eos % (Auto) (0-6) % Baso % (Auto) (0-2) % Absolute Neuts (auto) (1.5-7.7) 10^3/ul Absolute Lymphs (auto) (1.0-4.8) 10^3/ul Absolute Monos (auto) (0-0.8) 10^3/ul Absolute Eos (auto) (0-0.6) 10^3/ul Absolute Basos (auto) (0-0.2) 10^3/ul Absolute Nucleated RBC 10^3/ul Nucleated RBC % INR (Anticoag Therapy) (0.77-1.02) Sodium (133-145) mmol/L Potassium (3.5-5.0) mmol/L Chloride (101-111) mmol/L Carbon Dioxide (22-32) mmol/L Anion Gap (2-11) mmol/L BUN (6-24) mg/dL Creatinine (0.51-0.95) mg/dL Est GFR ( Amer) (>60) Est GFR (Non-Af Amer) (>60) BUN/Creatinine Ratio (8-20) Glucose (70-100) mg/dL Lactic Acid 0.8 (0.5-2.0) mmol/L Calcium (8.6-10.3) mg/dL Total Bilirubin (0.2-1.0) mg/dL AST (13-39) U/L ALT (7-52) U/L Alkaline Phosphatase (34-104) U/L Troponin I (<0.04) ng/mL Total Protein (6.4-8.9) g/dL Albumin (3.2-5.2) g/dL Globulin (2-4) g/dL Albumin/Globulin Ratio (1-3) Triglycerides mg/dL Cholesterol mg/dL LDL Cholesterol mg/dL HDL Cholesterol mg/dL Urine Color Yellow Urine Appearance Clear Urine pH 7.0 (5-9) Ur Specific [place] 1.014 (1.010-1.030) Urine Protein Negative (Negative) Urine Ketones Negative (Negative) Urine Blood Negative (Negative) Urine Nitrate Negative (Negative) Urine Bilirubin Negative (Negative) Urine Urobilinogen Negative (Negative) Ur Leukocyte Esterase 1+ H (Negative) Urine WBC (Auto) Trace(0-5/hpf) (Absent) Urine RBC (Auto) Trace(0-2/hpf) (Absent) Ur Squamous Epith Cells Present H (Absent) Urine Bacteria Absent (Absent) Urine Glucose Negative (Negative) Blood Type A Negative Antibody Screen Negative Result Diagrams: 02/24/17 14:08 02/24/17 14:08 Lab Statement: Any lab studies that have been ordered have been reviewed, and results considered in the medical decision making process. - CT Brain CT Interpretation Completed By: Radiologist - 1. No acute intracranial process evident. 2. Multiple small lacunar infarcts as noted. 3. Mild involutional change. ED physician has reviewed this radiology report. CTA Head/Neck CT Interpretation Completed By: Radiologist - NECK ANGIOGRAM IMPRESSION: 1. Approximate 50% ostial stenosis at the LEFT subclavian artery without change. 2. Approximate 50% stenosis at the mid RIGHT common carotid artery with interval worsening. 3. Approximate 50% stenosis at the distal LEFT common carotid artery without change. Approximate 90% stenosis at the LEFT carotid bulb and proximal internal carotid artery increased over the prior exam. 4. Chronic occlusion of the RIGHT vertebral artery. Patent LEFT vertebral artery with retrograde supply to the RIGHT posterior inferior cerebellar artery. HEAD ANGIOGRAM IMPRESSION: 1. Approximate 50% stenosis of the RIGHT internal carotid artery at the carotid canal without change. 2. Small caliber although patent bilateral middle cerebral artery M1 and M2 segments. 3. High-grade short segment stenosis at the P1 segment of the RIGHT posterior cerebral artery and moderate grade stenosis at the P1 segment of the RIGHT posterior cerebral artery without significant change. ED physician has reviewed this radiology report. - EKG 1406 Cardiac Rate: NL EKG Rhythm: Sinus Rhythm - 72 BPM EKG Interpretation: no ST elevations. NIH Scale - NIH Scale Level of Consciousness: Alert/Keenly Responsive Ask Patient the Month and His/Her Age: Both Correct Ask Pt to Open/Close Eyes and [employer] Rep/Release Non-Paretic Hand: Both Correctly Best Gaze (Only Horizontal Eye Movement): Normal Visual Field Testing: No Visual Loss Facial Paresis-Pt to Smile & Close Eyes or Grimace Symmetry: Normal/Symmetrical Motor Function - Right Arm: No Drift-Holds 10 Seconds Motor Function - Left Arm: No Drift-Holds 10 Seconds Motor Function - Right Leg: Drifts LT 10 seconds Motor Function - Left Leg: No Drift-Holds 10 Seconds Limb Ataxia-Must be out of Proportion to Weakness Present: Absent Sensory (Use Pinprick to Test Arms/Legs/Trunk/Face): Normal Best Language (Describe Picture, Name Items): Some Loss Dysarthria (Read Several Words): Normal Extinction and Inattention: No Abnormality Total Score: 2 Course/Dx - Course Assessment/Plan: This patient is a 66 year old F presenting to [facility] accompanied by daughter with a chief complaint of RLE tremors since 829 today. She was admitted to [facility] from 02/18/17 to 02/20/17 with PRIMARY DISCHARGE DIAGNOSES: 1. Community-acquired pneumonia. 2. Dehydration. 3. Hypotension, symptomatic. 4. Carotid stenosis. SECONDARY DIAGNOSES: History of cerebrovascular accident, chronic obstructive pulmonary disease, coronary artery disease, hyperlipidemia, hypertension. The patient rates the pain 0/10 in severity. 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 Symptoms alleviated by nothing. Daughter reports difficulty ambulating, intermittent dizziness, and confusion. An EKG reveals Sinus Rhythm at [address] elev[address]. CT Brain reveals, per radiologist, 1. No acute intracranial process evident. 2. Multiple small lacunar infarcts as noted. 3. Mild involutional change. ED physician has reviewed this radiology report. Test results with no significant abnormalities except for slight anemia. Urinalysis negative for UTI. Consulted Dr. Garcia (neurologist) at 1617 who recommends a CTA Head/Neck. CTA Head/Neck reveals, per radiologist, NECK ANGIOGRAM IMPRESSION : 1. Approximate 50% ostial stenosis at the LEFT subclavian artery without change. 2. Approximate 50% stenosis at the mid RIGHT common carotid artery with interval. worsening. 3. Approximate 50% stenosis at the distal LEFT common carotid artery without change. Approximate 90% stenosis at the LEFT carotid bulb and proximal internal carotid artery. increased over the prior exam. 4. Chronic occlusion of the RIGHT vertebral artery. Patent LEFT vertebral artery with. retrograde supply to the RIGHT posterior inferior cerebellar artery. HEAD ANGIOGRAM IMPRESSION: 1. Approximate 50% stenosis of the RIGHT internal carotid artery at the carotid canal. without change. 2. Small caliber although patent bilateral middle cerebral artery M1 and M2 segments. 3. High-grade short segment stenosis at the P1 segment of the RIGHT posterior cerebral. artery and moderate grade stenosis at the P1 segment of the RIGHT posterior cerebral. artery without significant change. ED physician has reviewed this radiology report. After the CTA results Dr. Garcia recommends a higher level of care transfer. Patient and patients daughter requested the patient be transfer to [facility]. I discussed the case with Stacia from the [facility] transfer center and Dr. Payton agrees to admit the patient in a transfer. The patient and patients daughter are agreeable with this plan. The patient is hemodynamically stable, alert and oriented x3. Her symptoms have not improved in the ED course; therefore the patient will be transferred to the [facility]. - Diagnoses Provider Diagnoses: TIA vs CVA - Physician Notifications Discussed Care Of Patient With: Mae Garcia Time Discussed With Above Provider: 16:17 Instructed by Provider To: Other - Consulted Dr. Garcia (neurologist) at 1617 who recommends a CTA Head/Neck. Discharge - Discharge Plan Condition: Stable Disposition: TRANS HIGHER LVL OF CARE FAC Referrals: Claire Kelley MD [Primary Care Provider] - The documentation as recorded by the Dennis marte Alfonso accurately reflects the service I personally performed and the decisions made by , Yahir Osman MD.
[2017-02-24 19:36] VITALS: BP 137/63
== END 2017-02-24 20:16 | disposition short-term general hospital (02) ==
LOC: ED 13:29
DX: G45.9 Transient cerebral ischemic attack, unspecified (principal); R41.0 Disorientation, unspecified; Z86.79 Personal history of other diseases of the circulatory system; Z87.09 Personal history of other diseases of the respiratory system; Z86.73 Personal history of transient ischemic attack (TIA), and cerebral infarction without residual deficits; R25.1 Tremor, unspecified
CPT/HCPCS: 36415; 70450; 70496; 70498; 80053; 80061; 81003; 81015; 83605; 84484; 85025; 85610; 86850; 86900; 86901; 87086; 93005; 96365; 99284; J0696; Q9967

== ENCOUNTER 2017-08-18 09:36 | Inpatient (IN) | payer MEDICARE, OTHER ==
[2017-08-18] MEDS ORDERED: Azithromycin IV(*) 500 MG in NS 0.9% 250 ML* 250 ML IVPB ONE (10:19)
[2017-08-18] MEDS ORDERED: Albuterol/Ipratropium NEB.SOL* Albuterol 2.5 MG/Ipratropium 0.5 MG 3 ML INH ONE (10:19)
[2017-08-18] MEDS ORDERED: methylPREDNISolone 125 MG* 2 ML VIAL IV ONE (10:19)
[2017-08-18] MEDS ORDERED: cefTRIAXone(*) 1 GM in NS 0.9% 50 ML* 50 ML IVPB ONE (10:19)
[2017-08-18] MEDS ORDERED: NS 0.9% 1000 ML* 1,000 ML IV SCH ×2 (10:30→15:09)
[2017-08-18 10:48] LABS: ABS Basophils 0 10^3/ul (0-0.2); ABS Eosinophils 0.2 10^3/ul (0-0.6); ABS Lymphocytes 0.8 10^3/ul (1.0-4.8); ABS Monocytes 0.6 10^3/ul (0-0.8); ABS Neutrophils 4.5 10^3/ul (1.5-7.7); ABS Nucleated RBC 0 10^3/ul; Eosinophil % 3.4 % (0-6); Hematocrit 44 % (35-47); Lymphocyte % 12.6 % (25-47); Mean Corpuscular HGB Conc 35 g/dl (31-36); Mean Corpuscular Hemoglobin 33 pg (27-31); Mean Corpuscular Volume 95 fL (80-97); Mean Platelet Volume 7.7 um3 (7.4-10.4); Nucleated Red Blood Cells % 0.1; Platelet Count 177 10^3/ul (150-450); Red Blood Count 4.58 10^6/ul (4.0-5.4); Red Cell Distribution Width 14 % (10.5-15); White Blood Count 6.1 10^3/ul (3.5-10.8)
[2017-08-18 10:58] LABS: INR 0.86 (0.77-1.02)
--- NOTE | 2017-08-18 11:01 | RAD ---
Indication: Moderate dyspnea. History of COPD and tobacco use. Comparison: June 08, 2017. December 18, 2016 chest radiograph. December 31, 2003 chest radiograph. Technique: Upright AP 1042 hours Report: Elevated lung volumes. Mild prominence of interstitial markings and upper lung zone rarefaction. Suggestion of a 0.6 cm nodular density at the mid RIGHT mid lung zone in the mid clavicular line with interval increase in size. The lungs and pleural spaces are otherwise clear. Negative for pneumothorax. The heart, pulmonary vasculature, and mediastinal contours are unremarkable. IMPRESSION: 1. Stigmata of chronic obstructive pulmonary disease. 2. No evidence for pneumonia. 3. Probable 0.6 cm nodule at the RIGHT midlung zone with interval enlargement. Consider CT for further assessment.
[2017-08-18 11:06] LABS: EGFR Non-African American 71.8 (>60)
[2017-08-18] MEDS ORDERED: Aspirin 81 mg CHEW TAB* 81 MG TAB.CHEW PO ONE (11:22)
[2017-08-18] MEDS ORDERED: Acetaminophen TAB* 325 MG PO PRN (13:21)
[2017-08-18] MEDS ORDERED: Al Hydrox/Mg Hydrox/Simet LIQ* 30 ML UDC PO PRN (13:21)
[2017-08-18] MEDS ORDERED: Albuterol/Ipratropium NEB.SOL* Albuterol 2.5 MG/Ipratropium 0.5 MG 3 ML INH PRN (13:21)
[2017-08-18] MEDS ORDERED: Albuterol HFA INHALER* 8 gm MDI INH PRN (13:27)
[2017-08-18] MEDS ORDERED: hydrOXYzine HCL TAB* 25 MG PO PRN (13:27)
[2017-08-18] MEDS ORDERED: Iohexol 350* (CONTRAST) 500 ML MDV IV ONE (13:44)
--- NOTE | 2017-08-18 14:35 | RAD ---
INDICATION: Shortness of breath. Tachycardia. Assess for PE. COMPARISON: August 18, 2017 chest radiograph. TECHNIQUE: Multidetector CT images were obtained from the lung apices to the upper abdomen with 60 mL Omnipaque 350 IV contrast. Pulmonary angiogram protocol. Multiplanar reformation including with maximum intensity projection. REPORT: Elevated lung volumes. Moderate predominant mid to upper lung zone emphysema. 0.6 cm noncalcified subpleural nodule at the posterior segment of the RIGHT upper lobe. Reference image 44; 0.3 cm noncalcified nodule at the anterior basal segment of the RIGHT lower lobe . No pulmonary finding evident to correspond with the suggestion of a 0.7 cm nodule at the RIGHT midlung zone. Moderate linear pleural parenchymal scarring at the apical posterior segment of the LEFT upper lobe. Negative for pleural effusion or pneumothorax. Negative for lymphadenopathy, cardiomegaly, or pericardial effusion. Mild atherosclerotic plaque of normal diameter thoracic aorta. Negative for thoracic aortic dissection. No filling defects are identified from the main to the subsegmental pulmonary arteries to indicate presence of a pulmonary embolism. Unremarkable Limited images through the upper abdomen. Negative for suspicious thoracic osseous lesions. IMPRESSION: 1. No evidence for pulmonary embolism. 2. Chronic obstructive pulmonary disease. No evidence for pneumonia. 3. Consider follow-up noncontrast chest CT at 6 months time for reassessment of the noted small relative low suspicion RIGHT pulmonary nodules.
[2017-08-18] MEDS ORDERED: Metoprolol Succinate XL TAB* 50 MG PO ONE (15:42)
--- NOTE | 2017-08-18 15:54 | ED ---
Safia Alvarado Emily, scribed for Joel Roberts MD on 08/18/17 at 1000 . Shortness of Breath - HPI Summary HPI Summary: This patient is a 66 year old F BIBA to [facility] with a chief complaint of SOB began at 0730 today. The patient rates the pain 0/10 in severity. Symptoms aggravated by nothing. Symptoms alleviated by nebulizer treatments via EMS in route. Patient reports cough and chest congestion. Patient denies CP and bilateral lower extremity edema. - History of Current Complaint Chief Complaint: EDRespiratoryDistress Hx Obtained From: Patient Onset/Duration: Sudden Onset, Lasting Hours, Still Present Timing: Constant Current Severity: Mild Aggrevating Factors: Nothing Alleviating Factors: EMS Tx Associated Signs & Symptoms: Cough (Nonproductive) - Allergy/Home Medications Allergies/Adverse Reactions: Allergies Allergy/AdvReac Type Severity Reaction Status Date / Time latex Allergy Blisters Verified 06/08/17 14:41 PMH/Surg Hx/FS Hx/Imm Hx Previously Healthy: No Endocrine/Hematology History: Denies: Hx Diabetes Cardiovascular History: Reports: Hx Angina, Hx Hypertension Denies: Hx Congestive Heart Failure, Hx Pacemaker/ICD Respiratory History: Reports: Hx Asthma, Hx Chronic Obstructive Pulmonary Disease (COPD) GI History: Reports: Other GI Disorders - DIVERTICULITIS History: Reports: Hx Kidney Infection, Other Problems/Disorders - HX MILD RENAL INSUFFICIENCY Denies: Hx Renal Disease Musculoskeletal History: Reports: Other Musculoskeletal History - RHEUMATOID ARTHRITIS Sensory History: Denies: Hx Contacts or Glasses, Hx Legally Blind, Hx Deafness, Hx Hearing Aid Opthamlomology History: Denies: Hx Contacts or Glasses, Hx Legally Blind Neurological History: Reports: Hx Transient Ischemic Attacks (TIA) - current dx Psychiatric History: Denies: Hx Panic Disorder - Cancer History Cancer Type, Location and Year: skin on finger--removed - Surgical History Surgery Procedure, Year, and Place: HYSTERECTOMY, OOPHRECTOMY, APENDECTOMY, CHOLECYSTECTOMY,TONSILECTOMY,URINARY TRACT SURGERY Hx Anesthesia Reactions: No - Immunization History Date of Tetanus Vaccine: current Date of Influenza Vaccine: 2015 Infectious Disease History: No Infectious Disease History: Denies: Traveled Outside the [place] in Last 30 Days - Family History Known Family History: Positive: Cardiac Disease, Hypertension, Diabetes, Respiratory Disease - COPD, Other - stroke - Social History Occupation: Retired Lives: Alone Alcohol Use: Weekly Alcohol Amount: 3 drinks every so often Hx Substance Use: No Substance Use Type: Reports: None Hx Tobacco Use: Yes Smoking Status (MU): Heavy Every Day Tobacco Smoker Type: Cigarettes Length of Time of Smoking/Using Tobacco: 50 years Have You Smoked in the Last Year: Yes Review of Systems Negative: Chest Pain Positive: Shortness Of Breath, Cough, Other - Positive chest congestion Negative: Edema All Other Systems Reviewed And Are Negative: Yes Physical Exam - Summary Physical Exam Summary: General: well-appearing, no pain distress Skin: warm, color reflects adequate perfusion, dry Head: normal Eyes: EOMI, GRZEGORZ ENT: normal Neck: supple, nontender Respiratory: Mild respiratory distress. Bilateral wheezing, breath sounds present Cardiovascular: Tachycardic, regular rhythm Abdomen: soft, nontender Bowel: present Musculoskeletal: normal, strength/ROM intact Neurological: sensory/motor intact, A&O x3 Psychological: affect/mood appropriate Triage Information Reviewed: Yes Vital Signs On Initial Exam: Initial Vitals Pulse Resp BP Pulse Ox 111 22 153/118 100 08/18/17 09:43 08/18/17 09:43 08/18/17 09:43 08/18/17 09:43 Vital Signs Reviewed: Yes Diagnostics - Vital Signs Vital Signs Temp Pulse Resp BP Pulse Ox 08/18/17 09:48 97.8 F 124 21 153/118 99 08/18/17 09:43 111 22 153/118 100 - Laboratory Lab Results: Lab Results 08/18/17 08/18/17 08/18/17 Range/Units 10:37 10:37 10:37 WBC 6.1 (3.5-10.8) 10^3/ul RBC 4.58 (4.0-5.4) 10^6/ul Hgb 15.0 (12.0-16.0) g/dl Hct 44 (35-47) % MCV 95 (80-97) fL MCH 33 H (27-31) pg MCHC 35 (31-36) g/dl RDW 14 (10.5-15) % Plt Count 177 (150-450) 10^3/ul MPV 7.7 (7.4-10.4) um3 Neut % (Auto) 73.6 (38-83) % Lymph % (Auto) 12.6 L (25-47) % Jun[place] % (Auto) 10.1 H (0-7) % Eos % (Auto) 3.4 (0-6) % Baso % (Auto) 0.3 (0-2) % Absolute Neuts (auto) 4.5 (1.5-7.7) 10^3/ul Absolute Lymphs (auto) 0.8 L (1.0-4.8) 10^3/ul Absolute Monos (auto) 0.6 (0-0.8) 10^3/ul Absolute Eos (auto) 0.2 (0-0.6) 10^3/ul Absolute Basos (auto) 0 (0-0.2) 10^3/ul Absolute Nucleated RBC 0 10^3/ul Nucleated RBC % 0.1 INR (Anticoag Therapy) 0.86 (0.77-1.02) APTT 31.5 (26.0-36.3) seconds Sodium 132 L (139-145) mmol/L Potassium 3.6 (3.5-5.0) mmol/L Chloride 97 L (101-111) mmol/L Carbon Dioxide 23 (22-32) mmol/L Anion Gap 12 H (2-11) mmol/L BUN 7 (6-24) mg/dL Creatinine 0.80 (0.51-0.95) mg/dL Est GFR ( Amer) 92.3 (>60) Est GFR (Non-Af Amer) 71.8 (>60) BUN/Creatinine Ratio 8.8 (8-20) Glucose 92 (70-100) mg/dL Lactic Acid (0.5-2.0) mmol/L Calcium 9.2 (8.6-10.3) mg/dL Magnesium 1.9 (1.9-2.7) mg/dL Total Bilirubin 0.50 (0.2-1.0) mg/dL AST 37 (13-39) U/L ALT 20 (7-52) U/L Alkaline Phosphatase 84 (34-104) U/L Total Creatine Kinase 171 (10-223) U/L Troponin I 1.00 H* (<0.04) ng/mL C-Reactive Protein 8.19 H (< 5.00) mg/L B-Natriuretic Peptide ( - 100) pg/mL Total Protein 6.9 (6.4-8.9) g/dL Albumin 4.4 (3.2-5.2) g/dL Globulin 2.5 (2-4) g/dL Albumin/Globulin Ratio 1.8 (1-3) Lipase 22 (11.0-82.0) U/L 08/18/17 08/18/17 Range/Units 10:37 10:37 WBC (3.5-10.8) 10^3/ul RBC (4.0-5.4) 10^6/ul Hgb (12.0-16.0) g/dl Hct (35-47) % MCV (80-97) fL MCH (27-31) pg MCHC (31-36) g/dl RDW (10.5-15) % Plt Count (150-450) 10^3/ul MPV (7.4-10.4) um3 Neut % (Auto) (38-83) % Lymph % (Auto) (25-47) % Juncos % (Auto) (0-7) % Eos % (Auto) (0-6) % Baso % (Auto) (0-2) % Absolute Neuts (auto) (1.5-7.7) 10^3/ul Absolute Lymphs (auto) (1.0-4.8) 10^3/ul Absolute Monos (auto) (0-0.8) 10^3/ul Absolute Eos (auto) (0-0.6) 10^3/ul Absolute Basos (auto) (0-0.2) 10^3/ul Absolute Nucleated RBC 10^3/ul Nucleated RBC % INR (Anticoag Therapy) (0.77-1.02) APTT (26.0-36.3) seconds Sodium (139-145) mmol/L Potassium (3.5-5.0) mmol/L Chloride (101-111) mmol/L Carbon Dioxide (22-32) mmol/L Anion Gap (2-11) mmol/L BUN (6-24) mg/dL Creatinine (0.51-0.95) mg/dL Est GFR ( Amer) (>60) Est GFR (Non-Af Amer) (>60) BUN/Creatinine Ratio (8-20) Glucose (70-100) mg/dL Lactic Acid 1.9 (0.5-2.0) mmol/L Calcium (8.6-10.3) mg/dL Magnesium (1.9-2.7) mg/dL Total Bilirubin (0.2-1.0) mg/dL AST (13-39) U/L ALT (7-52) U/L Alkaline Phosphatase (34-104) U/L Total Creatine Kinase (10-223) U/L Troponin I (<0.04) ng/mL C-Reactive Protein (< 5.00) mg/L B-Natriuretic Peptide 67 ( - 100) pg/mL Total Protein (6.4-8.9) g/dL Albumin (3.2-5.2) g/dL Globulin (2-4) g/dL Albumin/Globulin Ratio (1-3) Lipase (11.0-82.0) U/L Result Diagrams: 08/18/17 10:37 08/18/17 10:37 Lab Statement: Any lab studies that have been ordered have been reviewed, and results considered in the medical decision making process. - Radiology CXR Radiology Interpretation Completed By: Radiologist - CXR reveals, per radiologist, 1. Stigmata of chronic obstructive pulmonary disease. 2. No evidence for pneumonia. 3. Probable 0.6 cm nodule at the RIGHT midlung zone with interval enlargement. Consider CT for further assessment. ED physician has reviewed this radiology report. - EKG 1145 Cardiac Rate: Tachycardia EKG Rhythm: Sinus Rhythm - 122 BPM Ectopy: None EKG Interpretation: Depressed ST segments in inferior and lateral leads Re-Evaluation - Re-Evaluation First Eval Re-Evaluation Time: 10:43 Change: Unchanged Comment: Discussed plan of care with pt Course/Dx - Course Course Of Treatment: PATIENT DENIES CHEST PAIN. IMPROVED IN ED. ADMIT HOSPITALIST. CRITICAL CARE TIME LESS THAN 30 MINUTES. - Diagnoses Provider Diagnoses: Pulmonary nodule, COPD (chronic obstructive pulmonary disease), Dyspnea, Bronchitis, Elevated troponin - Physician Notifications Discussed Care of Patient With: Yissel Oseguera Time Discussed With Above Provider: 12:01 Instructed by Provider To: Other - Consult with Dr. Oseguera (hospitalist) at 1201. She communicated that this patient has denied admission in the past, and wanted us to check that the patient would like to be admitted. Consult with Dr. Oseguera (hospitalist) at 1223. She agrees to admit pt for further evaluation Discharge - Sign-Out/Discharge Documenting (check all that apply): Discharge/Admit/Transfer - Admit to [facility] - Discharge Plan Condition: Stable Disposition: ADMITTED TO [facility] - Billing Disposition and Condition Condition: STABLE Disposition: HOSP-[facility] The documentation as recorded by the Safia marte Emily accurately reflects the service I personally performed and the decisions made by me, Joel Roberts MD.
[2017-08-18] MEDS: Albuterol 2.5 MG/3 ML NEB.SOL* (0.083%) INH PRN ×2 (16:31→20:34)
--- NOTE | 2017-08-18 16:47 | HP ---
CC: Claire Kelley MD * HISTORY AND PHYSICAL: DATE OF ADMISSION: 08/18/17 PRIMARY CARE PHYSICIAN: Claire Kelley MD ATTENDING PHYSICIAN WHILE IN THE HOSPITAL: Yissel Oseguera MD * (dictated by Ivy Rosa NP). CHIEF COMPLAINT: Shortness of breath. HISTORY OF PRESENT ILLNESS: The patient states that she developed cold symptoms of cough and congestion 2 days ago and has developed progressively worsening shortness of breath over the past 2 days. 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 She did have to use her inhaler multiple times due to the shortness of breath while working in the function. She states that today she woke and she walked into the bathroom, became very short of breath and took her a long time to recover from her episode of shortness of breath, so she called her daughter who called 911 and was brought to the emergency room for further evaluation. She denies any chest pain. She does report a shortness of breath that has been progressively worsening over the past 2 days. She does report a cough that is productive of clear sputum. She does report that this feels like her typical COPD exacerbation. Despite her breathing difficulty, the patient continues to smoke three quarters of a pack a day. She denies any fevers. She does report mild sore throat and postnasal drip. While in the emergency room, the patient had routine lab work drawn. She had an EKG. Her EKG does show ST depressions and her troponin was elevated at 1.0. Given her symptoms of shortness of breath and elevated troponin, we were asked to see and evaluate her for admission. PAST MEDICAL HISTORY: Significant for: 1. COPD. 2. HI x2. 3. Hypertension. 4. Hyperlipidemia. 5. Coronary artery disease. 6. CVA. 7. Stent in the left carotid artery. PAST SURGICAL HISTORY: 1. Stent in the left carotid artery. 2. Hysterectomy. 3. Cholecystectomy. 4. Appendectomy. 5. Tonsillectomy. HOME MEDICATIONS: 1. Hydroxyzine 25 mg p.o. q.6 hours as needed for itching. 2. Wellbutrin 150 mg p.o. daily. 3. Spiriva 1 cap inhaled daily. 4. Brilinta 90 mg p.o. b.i.d. 5. [place]-3 fish oil 2 caps p.o. daily. 6. Multivitamin 1 tab p.o. daily. 7. Metoprolol succinate XL 50 mg p.o. daily. 8. Advair 500/50 one puff b.i.d. 9. Rajani 180 mg p.o. daily as needed for allergies. 10. Aspirin 81 mg p.o. daily. 11. Albuterol inhaler 2 puffs q.4 hours as needed for shortness of breath. ALLERGIES TO MEDICINES: She has allergy to LATEX. FAMILY HISTORY: Mother with a history of bypass surgery at age 75, mother with a history of diabetes and father with a history of laryngeal cancer. SOCIAL HISTORY: She does report that she smokes three quarters of a pack a day of cigarettes x50 years. She does report occasional alcohol use. Denies any illicit drug use. She is retired. She lives alone. Her surrogate decision maker in the event she is unable to make her own decisions is her daughter, Lyudmila Mack, her phone number is [phone]. She is a full code. REVIEW OF SYSTEMS: She denies any fever. Denies any unintended weight loss. Denies any chest pain or swelling. She does report a cough that is productive of clear sputum. Denies any hemoptysis. She does report increased shortness of breath that has progressively worsened over the past 2 days. Denies any nausea, vomiting or diarrhea. Denies any abdominal pain. She denies any hematuria or dysuria. Denies any focal weakness or sensory loss. Denies any visual changes. Denies dysphagia, arthralgias, myalgias. Denies any open lesions or rashes. She denies any depression or anxiety. PHYSICAL EXAMINATION GENERAL: At this time, Ms. Sanders is a 66-year-old female who presented to the emergency room with increased shortness of breath. She appears to be in moderate distress, sitting in the stretcher, worse with exertion. She is able to speak full sentences. VITAL SIGNS: Blood pressure 134/91, heart rate is 116, respirations are 20, O2 saturation 95%, temperature on admission was 97.8. HEENT: Head is atraumatic, normocephalic. Eyes: EOMs are intact. Sclerae anicteric and not pale. Oral mucosa appears to be moist. NECK: Supple. LUNGS: Diminished throughout bilaterally. There are a few scattered expiratory wheezes. There are no rales or rhonchi. CARDIAC: S1, S2. Regular rate and rhythm. There are no murmurs, rubs, or gallops. ABDOMEN: Soft and nontender. Bowel sounds are present x4. EXTREMITIES: Pulses are +2 throughout. There is no edema. She is able to move all 4 extremities with 5/5 strength. NEUROLOGIC: She is alert and oriented x4. Her speech is clear. Tongue is midline. There are no gross focal deficits. SKIN: Intact. DIAGNOSTIC STUDIES AND LABORATORY DATA: WBC's were 6.1, RBC's 4.58, hemoglobin 15, hematocrit was 44, platelet count was 177,000. INR was 0.86. APTT was 31.5. Sodium 132, potassium 3.6, chloride 97, carbon dioxide was 23, anion gap was 12, BUN was 7, creatinine 0.80, glucose was 92, lactic acid was 1.9, calcium was 9.2, mag was 1.9. Initial troponin was 1.00, repeat troponin at 1:30 on 08/18/17 was 0.56. C-reactive protein was 8.19. BNP was 67. Lipase was 22. Chest x-ray shows: 1. Stigmata of chronic obstructive pulmonary disease. 2. No evidence for pneumonia. 3. Probable 0.6 cm nodule in the right mid lung zone with interval enlargement. Consider CT for further assessment. She does have a CTA of the chest that is pending. Her echocardiogram shows sinus tachycardia at a rate of 122. She does have ST depressions in leads II, aVF, V3, V4, V5, V6. ASSESSMENT AND PLAN: Ms. Sanders is a 66-year-old female who presented to the emergency room today with progressively worsening shortness of breath over the past 2 days. We were asked to evaluate her because of her increased shortness of breath and elevated troponin. She will be admitted under observation for: 1. Shortness of breath. I suspect this is related to chronic obstructive pulmonary disease exacerbation. Given her history of increased shortness of breath and tachycardia on admission as well as EKG changes, we will also rule out pulmonary embolism. I will obtain a CTA of the chest, results are pending at this time. We will do a repeat EKG in the morning. We will continue to trend her troponins. I will continue her on albuterol nebs, Spiriva, Advair and prednisone, azithromycin, ceftriaxone for her chronic obstructive pulmonary disease exacerbation. 2. Elevated troponin. I suspect this may be related to demand ischemia, from her severe shortness of breath. We will continue to trend her troponins. They are currently trending down. I will repeat an EKG in the morning. We will get an echocardiogram for further evaluation of her elevated troponin. She did have an echo at [facility] in February 2017, which then her EF was 60% to 65% with no valvular disease. she also has a negative nuclear stress in 02/2017. please refer to [facility] record laced in her chart for further details. 3. Coronary artery disease with left carotid stent. We will continue her on Brilinta and metoprolol. 4. Hypertension. We will continue the metoprolol. 5. FEN: She can be placed on a heart-healthy, decaf-okay diet. 6. Code status: She is a full code. 7. DVT prophylaxis: heparin subcut 8. Disposition: She will be placed under inpatient on telemetry. TIME SPENT: Time spent on this admission was approximately 60 minutes, greater than half that time was spent with the patient obtaining my history and physical , the other half of the time was spent going over my plan of care and implementing my plan of care. I have discussed this with my attending, Dr. Yissel Oseguera, and she is in agreement with my plan. IVY ROSA, JAI ALAI PLAYER [id number]/[facility] #: [id number] VINICIUS
[2017-08-18] MEDS: Mometasone/Formoter 200/5 MDI INH SCH (20:34)
--- NOTE | 2017-08-18 21:11 | PN ---
Hospitalist Progress Note Date of Service: 08/18/17 RN called me about pt's HR and BP increasing for at least about 15 mins when she has her frequent couging fits. Placed order for Robitussin DM q6H x 2 days , and Tessalon 100 mg PO TID PRN in addition to her regimen to better control coughs. Also placed order for PRN IV Metoprolol 5 mg q6H PRN for any sustained HTN and HR brought about by said coughing fits.
[2017-08-18] MEDS: Metoprolol Tartrate IV* 1 MG/ML 5 ML VIAL IV PRN (21:26)
[2017-08-18] MEDS: Benzonatate CAP* 100 MG PO SCH (21:26)
[2017-08-18] MEDS: buPROPion SR TAB.SR* 150 MG PO SCH (21:26)
[2017-08-18] MEDS: GuaiFENesin DM* 5 ML UDC PO SCH (21:26)
[2017-08-18] MEDS: Ticagrelor* 90 MG TAB PO SCH (21:26)
[2017-08-19] MEDS ORDERED: NS 0.9% 1000 ML* 1,000 ML IV SCH (00:03)
[2017-08-19] MEDS ORDERED: hydrALAZINE IV* 20 MG/ML VIAL IV SLOW PU PRN (00:38)
[2017-08-19] MEDS: Albuterol 2.5 MG/3 ML NEB.SOL* (0.083%) INH PRN (01:30)
[2017-08-19] MEDS: Ipratropium 0.5MG/2.5ML NEB* 0.5 MG/2.5 ML NEB.SOLN INH SCH ×6 (01:49→19:08)
[2017-08-19] MEDS ORDERED: Enoxaparin(*) 60 MG/0.6 ML SYR SUBCUT STA (02:01)
[2017-08-19] MEDS: methylPREDNISolone 125 MG* 2 ML VIAL IV SCH ×4 (02:09→19:52)
[2017-08-19] MEDS: Metoprolol Tartrate IV* 1 MG/ML 5 ML VIAL IV PRN (03:37)
[2017-08-19] MEDS: Levalbuterol 1.25MG/0.5ML NEB INH SCH ×5 (03:41→19:08)
[2017-08-19] MEDS: GuaiFENesin DM* 5 ML UDC PO SCH ×4 (04:10→22:09)
--- NOTE | 2017-08-19 08:05 | RAD ---
HISTORY: Shortness of breath COMPARISONS: April 20, 2017 VIEWS: 1: frontal portable view of the chest at 1:51 AM FINDINGS: LINES AND TUBES: None. CARDIOMEDIASTINAL SILHOUETTE: The cardiomediastinal silhouette is normal for portable technique. PLEURA: The costophrenic angles are sharp. No pleural abnormalities are noted. LUNG PARENCHYMA: The region of the nodular density of the right midlung identified on previous examination is obscured by an overlying ECG lead on the current examination. There is hyperinflation. ABDOMEN: The upper abdomen is clear. There is no subphrenic gas. BONES AND SOFT TISSUES: No bone or soft tissue abnormalities are noted. IMPRESSION: HYPERINFLATION. NO ACTIVE CARDIOPULMONARY DISEASE.
[2017-08-19] MEDS: Mometasone/Formoter 200/5 MDI INH SCH ×2 (08:26→20:33)
[2017-08-19] MEDS ORDERED: Morphine VIAL* 4 MG/ML VIAL (1 ml vial) IV PRN (08:31)
[2017-08-19] MEDS ORDERED: Labetalol IV* 5 MG/ML 20 ML VIAL IV PUSH ONE (08:33)
[2017-08-19] MEDS ORDERED: Furosemide IV* 10 MG/ML 2 ML VIAL (20 MG) IV ONE (08:34)
[2017-08-19] MEDS ORDERED: Morphine VIAL* 4 MG/ML VIAL (1 ml vial) IV ONE (08:36)
[2017-08-19] MEDS: Metoprolol Succinate XL TAB* 50 MG PO SCH (08:48)
[2017-08-19] MEDS: Aspirin EC TAB* 81 MG TAB.EC PO SCH (08:48)
[2017-08-19] MEDS: Multivitamins/Minerals TAB PO SCH (08:48)
[2017-08-19] MEDS: buPROPion SR TAB.SR* 150 MG PO SCH ×2 (08:48→19:50)
[2017-08-19] MEDS: Ticagrelor* 90 MG TAB PO SCH ×2 (08:48→19:51)
[2017-08-19] MEDS ORDERED: predniSONE TAB* 20 MG PO SCH (09:00)
[2017-08-19] MEDS ORDERED: Tiotropium CAP.INH* CAP.INH/18 MCG (USE ORDER SET !) INH SCH (09:00)
[2017-08-19] MEDS ORDERED: Spiriva Inhaler DEVICE* 1 EACH DEVICE INH ONE (09:00)
--- NOTE | 2017-08-19 10:11 | PN ---
Subjective Date of Service: 08/19/17 Interval History: Pt had an episode of sever SOB this AM, her SBP was>200, 02 sat 95 % on 2 L Nc. 'Was treated with dueoneb/labetalol/lasix/morphine, now feels much better. At night was given hydralazine and developed petechiae on b/l hands Objective Active Medications: Acetaminophen (Tylenol Tab*) 650 mg PO Q4H PRN PRN Reason: FEVER/PAIN Al Hydrox/Mg Hydrox/Simethicone (Maalox Plus*) 30 ml PO Q6H PRN PRN Reason: INDIGESTION Aspirin (Aspirin Ec Tab*) 81 mg PO DAILY [facility] Last Admin: 08/19/17 08:48 Dose: 81 mg Benzonatate (Tessalon Cap*) 100 mg PO TID [facility] Last Admin: 08/18/17 21:26 Dose: 100 mg Bupropion HCl (Wellbutrin Sr Tab*) 150 mg PO BID [facility] Last Admin: 08/19/17 08:48 Dose: 150 mg Guaifenesin/Dextromethorphan (Robitussin Dm*) 10 ml PO Q6H [facility] Stop: 08/20/17 21:59 Last Admin: 08/19/17 04:10 Dose: Not Given Ceftriaxone Sodium 1 gm/ (Sodium Chloride) 50 mls @ 200 mls/hr IVPB Q24H [facility] Azithromycin 500 mg/ Sodium (Chloride) 250 mls @ 250 mls/hr IVPB Q24H [facility] Ipratropium Kathleen (Atrovent 0.5 Mg Neb.Maritza*) 0.5 mg INH [id number] AWAKE [facility] Last Admin: 08/19/17 08:23 Dose: 0.5 mg Levalbuterol HCl (Xopenex 1.25 Mg/0.5 Ml Neb.Maritza*) 1.25 mg INH [id number] AWAKE [facility] Last Admin: 08/19/17 08:25 Dose: 1.25 mg Methylprednisolone Sodium Succinate (Solu-Medrol 125mg *) 60 mg IV Q6H [facility] Last Admin: 08/19/17 08:45 Dose: 60 mg Metoprolol Succinate (Toprol Xl Tab*) 50 mg PO DAILY [facility] Last Admin: 08/19/17 08:48 Dose: 50 mg Metoprolol Tartrate (Lopressor Iv*) 5 mg IV Q6H PRN PRN Reason: BLOOD PRESSURE Last Admin: 08/19/17 03:37 Dose: 5 mg Mometasone Furoate/Formoterol Fumar (Dulera 200/5 Mdi*) 2 puff INH BID [facility] Last Admin: 08/19/17 08:26 Dose: 2 puff Morphine Sulfate (Morphine Vial*) 2 mg IV Q4H PRN PRN Reason: PAIN - MILD Last Admin: 08/19/17 08:46 Dose: 2 mg Multivitamins/Minerals (Theragran/Minerals Tab*) 1 tab PO DAILY [facility] Last Admin: 08/19/17 08:48 Dose: 1 tab Ticagrelor (Brilinta*) 90 mg PO BID [facility] Last Admin: 08/19/17 08:48 Dose: 90 mg Vital Signs - 8 hr 08/19/17 08/19/17 08/19/17 03:28 03:41 06:28 Temperature Pulse Rate 121 94 Respiratory 36 20 Rate Blood Pressure 200/104 168/84 (mmHg) O2 Sat by Pulse 98 97 Oximetry 08/19/17 08/19/17 08/19/17 08:25 08:30 08:46 Temperature 98.2 F Pulse Rate 118 114 Respiratory 24 32 28 Rate Blood Pressure 184/106 (mmHg) O2 Sat by Pulse 97 99 Oximetry Oxygen Devices in Use Now: Simple Face Mask - at 4L, OxyMask Appearance: 66 yo f in nAD, aAOx3 Eyes: No Scleral Icterus, PERRLA Ears/Nose/Mouth/Throat: NL Teeth, Lips, Gums, Mucous Membranes Moist Neck: NL Appearance and Movements; NL JVP, Trachea Midline Respiratory: Symmetrical Chest Expansion and Respiratory Effort, - - diffuxe b/ l wheezes Cardiovascular: NL Sounds; No Murmurs; No JVD Abdominal: NL Sounds; No Tenderness; No Distention, No Hepatosplenomegaly Lymphatic: No Cervical Adenopathy Extremities: No Edema, No Clubbing, Cyanosis Skin: No Nodules or Sclerosis, - - dilated blood vessels on face -rosacea related, b/l hands -small nonblanchable petechie Neurological: Alert and Oriented x 3, NL Muscle Strength and Tone Result Diagrams: 08/18/17 10:37 08/18/17 10:37 Additional Lab and Data: Lab Results 06/06/0208/18/17 08/18/17 Range/Units 10:37 10:37 10:37 WBC 6.1 (3.5-10.8) 10^3/ul RBC 4.58 (4.0-5.4) 10^6/ul Hgb 15.0 (12.0-16.0) g/dl Hct 44 (35-47) % MCV 95 (80-97) fL MCH 33 H (27-31) pg MCHC 35 (31-36) g/dl RDW 14 (10.5-15) % Plt Count 177 (150-450) 10^3/ul MPV 7.7 (7.4-10.4) um3 Neut % (Auto) 73.6 (38-83) % Lymph % (Auto) 12.6 L (25-47) % Will % (Auto) 10.1 H (0-7) % Eos % (Auto) 3.4 (0-6) % Baso % (Auto) 0.3 (0-2) % Absolute Neuts (auto) 4.5 (1.5-7.7) 10^3/ul Absolute Lymphs (auto) 0.8 L (1.0-4.8) 10^3/ul Absolute Monos (auto) 0.6 (0-0.8) 10^3/ul Absolute Eos (auto) 0.2 (0-0.6) 10^3/ul Absolute Basos (auto) 0 (0-0.2) 10^3/ul Absolute Nucleated RBC 0 10^3/ul Nucleated RBC % 0.1 INR (Anticoag Therapy) 0.86 (0.77-1.02) APTT 31.5 (26.0-36.3) seconds Sodium 132 L (139-145) mmol/L Potassium 3.6 (3.5-5.0) mmol/L Chloride 97 L (101-111) mmol/L Carbon Dioxide 23 (22-32) mmol/L Anion Gap 12 H (2-11) mmol/L BUN 7 (6-24) mg/dL Creatinine 0.80 (0.51-0.95) mg/dL Est GFR ( Amer) 92.3 (>60) Est GFR (Non-Af Amer) 71.8 (>60) BUN/Creatinine Ratio 8.8 (8-20) Glucose 92 (70-100) mg/dL Lactic Acid (0.5-2.0) mmol/L Calcium 9.2 (8.6-10.3) mg/dL Magnesium 1.9 (1.9-2.7) mg/dL Total Bilirubin 0.50 (0.2-1.0) mg/dL AST 37 (13-39) U/L ALT 20 (7-52) U/L Alkaline Phosphatase 84 (34-104) U/L Total Creatine Kinase 171 (10-223) U/L Troponin I 1.00 H* (<0.04) ng/mL C-Reactive Protein 8.19 H (< 5.00) mg/L B-Natriuretic Peptide ( - 100) pg/mL Total Protein 6.9 (6.4-8.9) g/dL Albumin 4.4 (3.2-5.2) g/dL Globulin 2.5 (2-4) g/dL Albumin/Globulin Ratio 1.8 (1-3) Lipase 22 (11.0-82.0) U/L 18 08/18/17 Range/Units 10:37 10:37 WBC (3.5-10.8) 10^3/ul RBC (4.0-5.4) 10^6/ul Hgb (12.0-16.0) g/dl Hct (35-47) % MCV (80-97) fL MCH (27-31) pg MCHC (31-36) g/dl RDW (10.5-15) % Plt Count (150-450) 10^3/ul MPV (7.4-10.4) um3 Neut % (Auto) (38-83) % Lymph % (Auto) (25-47) % Will % (Auto) (0-7) % Eos % (Auto) (0-6) % Baso % (Auto) (0-2) % Absolute Neuts (auto) (1.5-7.7) 10^3/ul Absolute Lymphs (auto) (1.0-4.8) 10^3/ul Absolute Monos (auto) (0-0.8) 10^3/ul Absolute Eos (auto) (0-0.6) 10^3/ul Absolute Basos (auto) (0-0.2) 10^3/ul Absolute Nucleated RBC 10^3/ul Nucleated RBC % INR (Anticoag Therapy) (0.77-1.02) APTT (26.0-36.3) seconds Sodium (139-145) mmol/L Potassium (3.5-5.0) mmol/L Chloride (101-111) mmol/L Carbon Dioxide (22-32) mmol/L Anion Gap (2-11) mmol/L BUN (6-24) mg/dL Creatinine (0.51-0.95) mg/dL Est GFR ( Amer) (>60) Est GFR (Non-Af Amer) (>60) BUN/Creatinine Ratio (8-20) Glucose (70-100) mg/dL Lactic Acid 1.9 (0.5-2.0) mmol/L Calcium (8.6-10.3) mg/dL Magnesium (1.9-2.7) mg/dL Total Bilirubin (0.2-1.0) mg/dL AST (13-39) U/L ALT (7-52) U/L Alkaline Phosphatase (34-104) U/L Total Creatine Kinase (10-223) U/L Troponin I (<0.04) ng/mL C-Reactive Protein (< 5.00) mg/L B-Natriuretic Peptide 67 ( - 100) pg/mL Total Protein (6.4-8.9) g/dL Albumin (3.2-5.2) g/dL Globulin (2-4) g/dL Albumin/Globulin Ratio (1-3) Lipase (11.0-82.0) U/L Assess/Plan/Problems-Billing Assessment: 66 yo f with h/o nonobstructive CAD (cath in 1999 showed no significant blockages), COPD(current smoker approx 1 ppd ) presents with COPD exacerbation and elevated troponin - Patient Problems (1) COPD exacerbation Comment: severe, cont solu Medrol and Ceftriaxone/Azithro, no evidence of pneumonia, so far (2) Symptomatic carotid artery stenosis Comment: s/p left CEA in 02/2018 (3) Chronic urticaria Comment: cont thorazine prn (4) Hypertension Comment: cont outpatient meds, cont lopressor prn IV (5) Troponin I above reference range Comment: suspcet demand ischemia. Denies CP will check BNP check Echo cont ASA/.Brilinta (6) Lung nodule, multiple Comment: biggest at 0.7 cm , for outpatinet f/u CT in 6 months, pt informed (7) DVT prophylaxis Comment: HSQ Status and Disposition: inpatient
[2017-08-19] MEDS ORDERED: hydrOXYzine HCL TAB* 25 MG PO PRN (10:17)
[2017-08-19] MEDS: Benzonatate CAP* 100 MG PO SCH ×3 (10:49→22:09)
[2017-08-19] MEDS: cefTRIAXone(*) 1 GM in NS 0.9% 50 ML* 50 ML IVPB SCH (10:52)
[2017-08-19] MEDS: Azithromycin IV(*) 500 MG in NS 0.9% 250 ML* 250 ML IVPB SCH (11:42)
--- NOTE | 2017-08-19 12:31 | ECHO ---
Patient: TATIANA MARTINEZ [facility] Rec#: [id number] : 1950 Date: 08/19/2017 Age: 66y Height: 162.56 cm / 64.0 in Weight: 58.97 kg / 130.0 lbs Sex: F BSA: 1.63 Room#: 435 Admit Date#: 08/18/2017 Type: Inpatient Referring: Ivy Rosa Reading: Bret Felix MD Rehanger: Sejal Holly RDCS CC: Claire Kelley MD Transthoracic Echocardiogram Indication: ACS BP: 168/84 HR: 105 Rhythm: Tachycardia Findings History: CVA, smoker, COPD, HTN, + family history for CAD. Technical Comments: The study quality is fair. The study is technically limited due to poor acoustic windows. Completed at 0830. Left Ventricle: The left ventricular chamber size is normal. Mild concentric left ventricular hypertrophy is observed. There is normal left ventricular systolic function. The estimated ejection fraction is 55-60%. There is no consistent Doppler evidence of clinically significant diastolic dysfunction. Left Atrium: The left atrial chamber size is normal. Right Ventricle: The right ventricular cavity size is normal. The right ventricular global systolic function is normal. Right Atrium: The right atrial cavity size is normal. Aortic Valve: The aortic valve is trileaflet. There is no evidence of aortic valve thickening. There is no evidence of aortic regurgitation. There is no evidence of aortic stenosis. Mitral Valve: The mitral valve leaflets are mildly thickened. There is a trace of mitral regurgitation. There is no evidence of mitral stenosis. Tricuspid Valve: The tricuspid valve structure is not well visualized. There is trace tricuspid regurgitation. Unable to estimate the right ventricular systolic pressure. There is no tricuspid stenosis. Pulmonic Valve: The pulmonic valve structure is not well visualized. There is a trace pulmonic regurgitation. There is no pulmonic stenosis. Pericardium: There is no significant pericardial effusion. Aorta: There is no dilatation of the ascending aorta. There is no dilatation of the aortic arch. The aortic root is normal in size. Pulmonary Artery: The main pulmonary artery is not well visualized. Venous: The inferior vena cava appears normal in size. There is a greater than 50% respiratory change in the inferior vena cava dimension. Conclusions Mild concentric left ventricular hypertrophy is observed. There is normal left ventricular systolic function. The estimated ejection fraction is 55-60%. There is no consistent Doppler evidence of clinically significant diastolic dysfunction. The right ventricular global systolic function is normal. There is no evidence of aortic stenosis. There is a trace of mitral regurgitation. There is trace tricuspid regurgitation. Unable to estimate the right ventricular systolic pressure. There is no significant pericardial effusion. Measurements Name Value Normal Range RVIDd (AP) 2D 1.9 cm (0.9 - 2.6) RVDdMajor (2D) 3 cm (2.2 - 4.4) RAd ISD 4CH 3.7 cm (3.4 - 4.9) RA (A4C)W 3.2 cm (2.9 - 4.6) IVSd (2D) 1.1 cm (0.6 - 1) LVPWd (2D) 1.1 cm (0.6 - 1) LVIDd (2D) 3.9 cm (3.6 - 5.4) LVIDs (2D) 2.7 cm - LV FS (2D) 31 % (25 - 45) Aortic Annulus 1.9 cm (1.4 - 2.6) Ao root diameter (2D) 3.2 cm (2.1 - 3.5) Ascending Ao 3 cm (2.1 - 3.4) Aortic arch 2.1 cm (1.8 - 3.4) LA dimension (AP) 2D 2.8 cm (2.3 - 3.8) LAd ISD 4CH 3.7 cm (2.9 - 5.3) LA ISD 4CH W 3.8 cm (2.5 - 4.5) Name Value Normal Range LA ESV SP 4CH (A/L) 40 ml - LA ESV SP 2CH (A/L) 50 ml - LA ESV BP (A/L) 48 ml - LA ESV BP (A/L) index 30 ml/m2 - LA ESV SP 4CH (MOD) 36 ml - LA ESV SP 2CH (MOD) 48 ml - Name Value Normal Range MV E-wave Vmax 0.84 m/sec - MV deceleration time 104.2 msec - MV A-wave Vmax 1.33 m/sec - MV E:A ratio 0.62 ratio - LV septal e' Vmax 0.07 m/sec - LV lateral e' Vmax 0.09 m/sec - LV E:e' septal ratio 12 ratio - LV E:e' lateral ratio 9.33 ratio - Name Value Normal Range AV Vmax 1.5 m/sec - AV VTI 32.1 cm - AV peak gradient 8.73 mmHg - AV mean gradient 3.74 mmHg - LVOT Vmax 1.12 m/sec - LVOT VTI 24.27 cm - LVOT peak gradient 5.05 mmHg - LVOT mean gradient 2.05 mmHg - PANCHO Vmax 0.85 m/sec - Name Value Normal Range IVC diameter 1.3 cm - Name Value Normal Range PV Vmax 1.09 m/sec - PV peak gradient 4.71 mmHg -
[2017-08-19] MEDS: Heparin VIAL(*) 5000 UNITS/ML VIAL (FIVE THOUSAND) SUBCUT SCH ×2 (14:17→22:06)
[2017-08-19] MEDS: Morphine VIAL* 4 MG/ML VIAL (1 ml vial) IV PRN (17:16)
[2017-08-19] MEDS ORDERED: ALPRAZolam TAB* 0.25 MG PO ONE (18:51)
--- NOTE | 2017-08-19 20:11 | CONS ---
CC: Dr. Holm; Dr. Kelley, [facility]. * CARDIOLOGY CONSULTATION: DATE OF CONSULT: INDICATION FOR CONSULTATION: Abnormal troponin, abnormal EKG. HISTORY OF PRESENT ILLNESS: The patient is a 66-year-old female with no known coronary artery disease, who was admitted to the hospital with respiratory distress. The patient states that for the past week or so, she has been getting increasing shortness of breath, increasing sputum production. The patient ultimately came to the emergency room because of the severe shortness of breath and was diagnosed with COPD/asthma exacerbation. The patient denied any chest pain. She denied any lightheadedness, dizziness, or syncope. She denied any palpitations. The patient's initial troponin level was 1.0. Again, the patient did not have any symptoms of chest pain associated with that. The patient's initial EKG demonstrated normal sinus rhythm with ST-segment depressions, sort of diffusely throughout the myocardium. This was new compared to an EKG within the last 6 months. The patient had an echocardiogram here in the hospital, which demonstrated normal LV size and systolic function, no significant valvular abnormalities, no wall motion abnormalities. In speaking with the patient, she is getting better. She has less shortness of breath, but is certainly not back at her baseline. The patient states that she had a stress test up at [facility] 6 months ago when she had a workup for her carotid stent. Reportedly, that stress test was normal; I do not have that report. PAST MEDICAL HISTORY: Significant for COPD, hypertension, hyperlipidemia, CVA, carotid stent, myocardial infarction x2 but I do not have documentation of that. PAST SURGICAL HISTORY: Stent implantation to the left carotid artery, hysterectomy, cholecystectomy, appendectomy. OUTPATIENT MEDICATIONS: 1. Hydroxyzine 25 mg q.6 hours as needed. 2. Wellbutrin 150 mg daily. 3. Spiriva inhaler. 4. Brilinta 90 mg b.i.d. 5. Fish oil tablets. 6. Multivitamin a day. 7. Metoprolol succinate 50 mg a day. 8. Advair inhaler. 9. Rajani 180 mg a day. 10. Aspirin 81 mg a day. 11. Albuterol inhaler. ALLERGIES: LASIX. FAMILY HISTORY: Mother had a history of bypass surgery at 75, also history of diabetes. SOCIAL HISTORY: The patient continues to smoke almost a pack of cigarettes a day. She does not use illicit drugs. She is retired. She lives alone. She denies significant alcohol use. PHYSICAL EXAM: Height is 5 feet 4 inches, weight is 137 pounds. Temperature 98.7, heart rate is 94, respiratory rate is 20, oxygen saturation 95% on 4 L, blood pressure 128/78. Sclerae anicteric. Oropharynx is pink without erythema. Carotids are 2+ with a soft bruit on the left side. Thyroid is normal. Cardiac Exam: S1, S2 without any murmurs, rubs, or gallops. Lungs have significantly decreased breath sounds. There is mild rhonchi. There are no rales on exam. There is no dullness to percussion. Abdomen is soft, nontender , nondistended with normoactive bowel sounds. Extremities show minimal edema. She has 2+ pulses throughout. The patient is awake, alert, and oriented. She moves all 4 extremities equally. DIAGNOSTIC STUDIES/LAB DATA: Chemistry is within normal limits. BUN 7, creatinine 0.8. AST and ALT are normal. Troponin level is 1.0, then went down to 0.56, and then 0.33. CBC within normal limits. Again, EKG as described above. IMPRESSION AND PLAN: This is a 66-year-old female with a history of severe chronic obstructive pulmonary disease, who was admitted to the hospital with a chronic obstructive pulmonary disease exacerbation. The patient did have an elevated troponin level on admission to the hospital. She did not have any chest pain. EKG demonstrates diffuse ST-segment depression, could be global ischemia due to her hypoxia from her chronic obstructive pulmonary disease exacerbation. At this point, I am not convinced to the idea that workup is necessary. The patient is on Brilinta, aspirin, beta-joanie as an outpatient. At some point, I would repeat her stress test. This can be done as an outpatient when her pulmonary issues have improved. The patient will follow up with Dr. Kelley as an outpatient. The patient could be referred back to me if a stress test was wanted to be pursued. [id number]/[facility] #: [id number] MTDTegan
[2017-08-20] MEDS: Levalbuterol 1.25MG/0.5ML NEB INH SCH ×7 (00:01→23:05)
[2017-08-20] MEDS: Ipratropium 0.5MG/2.5ML NEB* 0.5 MG/2.5 ML NEB.SOLN INH SCH ×7 (00:01→23:05)
[2017-08-20] MEDS: methylPREDNISolone 125 MG* 2 ML VIAL IV SCH (01:58)
[2017-08-20] MEDS: Morphine VIAL* 4 MG/ML VIAL (1 ml vial) IV PRN ×3 (02:00→19:32)
--- NOTE | 2017-08-20 02:56 | PN ---
Hospitalist Progress Note Date of Service: 08/20/17 Jairo, pt's RN text-paged me informing me about pt inquiry of whether xanax can be prescribed as a PRN given this has really helped her when she was given a one time dose yesterday. Will order 0.25 mg PO TID PRN and will defer with AM team to further evaluate need.
[2017-08-20] MEDS ORDERED: ALPRAZolam TAB* 0.25 MG ONE (03:03)
[2017-08-20] MEDS: ALPRAZolam TAB* 0.25 MG PO PRN ×3 (03:04→20:28)
[2017-08-20] MEDS: GuaiFENesin DM* 5 ML UDC PO SCH (04:07)
[2017-08-20] MEDS: Mometasone/Formoter 200/5 MDI INH SCH ×3 (05:59→19:41)
[2017-08-20] MEDS: Heparin VIAL(*) 5000 UNITS/ML VIAL (FIVE THOUSAND) SUBCUT SCH ×3 (06:08→20:27)
[2017-08-20 06:09] LABS: ABS Basophils 0 10^3/ul (0-0.2); ABS Eosinophils 0 10^3/ul (0-0.6); ABS Lymphocytes 0.7 10^3/ul (1.0-4.8); ABS Monocytes 0.8 10^3/ul (0-0.8); ABS Neutrophils 14.2 10^3/ul (1.5-7.7); ABS Nucleated RBC 0 10^3/ul; Eosinophil % 0 % (0-6); Hematocrit 40 % (35-47); Hemoglobin 13.5 g/dl (12.0-16.0); Lymphocyte % 4.2 % (25-47); Mean Corpuscular HGB Conc 34 g/dl (31-36); Mean Corpuscular Hemoglobin 33 pg (27-31); Mean Corpuscular Volume 96 fL (80-97); Mean Platelet Volume 8.3 um3 (7.4-10.4); Nucleated Red Blood Cells % 0.1; Platelet Count 213 10^3/ul (150-450); Red Blood Count 4.15 10^6/ul (4.0-5.4); Red Cell Distribution Width 15 % (10.5-15); White Blood Count 15.7 10^3/ul (3.5-10.8)
[2017-08-20 06:23] LABS: EGFR Non-African American 56.8 (>60)
[2017-08-20] MEDS ORDERED: GuaiFENesin DM* 5 ML UDC PO PRN (07:33)
[2017-08-20] MEDS ORDERED: Furosemide IV* 10 MG/ML 2 ML VIAL (20 MG) IV ONE (07:35)
[2017-08-20] MEDS: buPROPion SR TAB.SR* 150 MG PO SCH ×2 (08:32→20:27)
[2017-08-20] MEDS: methylPREDNISolone SOD 40 MG* 1 ML VIAL IV SCH ×2 (08:32→16:17)
[2017-08-20] MEDS: Metoprolol Succinate XL TAB* 50 MG PO SCH (08:32)
[2017-08-20] MEDS: Multivitamins/Minerals TAB PO SCH (08:33)
[2017-08-20] MEDS: Ticagrelor* 90 MG TAB PO SCH ×2 (08:33→20:27)
[2017-08-20] MEDS: Aspirin EC TAB* 81 MG TAB.EC PO SCH (08:33)
[2017-08-20] MEDS: cefTRIAXone(*) 1 GM in NS 0.9% 50 ML* 50 ML IVPB SCH (09:37)
--- NOTE | 2017-08-20 10:22 | PN ---
Subjective Date of Service: 08/20/17 Interval History: Pt feels better after morphine and Xanax. Breathing is improving slowly Objective Active Medications: Acetaminophen (Tylenol Tab*) 650 mg PO Q4H PRN PRN Reason: FEVER/PAIN Al Hydrox/Mg Hydrox/Simethicone (Maalox Plus*) 30 ml PO Q6H PRN PRN Reason: INDIGESTION Alprazolam (Xanax Tab*) 0.25 mg PO TID PRN PRN Reason: AGITATION/ANXIETY Last Admin: 08/20/17 03:04 Dose: 0.25 mg Aspirin (Aspirin Ec Tab*) 81 mg PO DAILY [facility] Last Admin: 08/20/17 08:33 Dose: 81 mg Bupropion HCl (Wellbutrin Sr Tab*) 150 mg PO BID [facility] Last Admin: 08/20/17 08:32 Dose: 150 mg Guaifenesin/Dextromethorphan (Robitussin Dm*) 10 ml PO Q6H PRN PRN Reason: COUGH Stop: 08/20/17 21:59 Last Admin: 08/20/17 09:37 Dose: 10 ml Heparin Sodium (Porcine) (Heparin Vial(*)) 5,000 units SUBCUT Q8HR [facility] Last Admin: 08/20/17 06:08 Dose: 5,000 units Hydroxyzine HCl (Atarax Tab*) 25 mg PO Q6H PRN PRN Reason: itching Ceftriaxone Sodium 1 gm/ (Sodium Chloride) 50 mls @ 200 mls/hr IVPB Q24H [facility] Last Admin: 08/20/17 09:37 Dose: 200 mls/hr Azithromycin 500 mg/ Sodium (Chloride) 250 mls @ 250 mls/hr IVPB Q24H [facility] Last Admin: 08/19/17 11:42 Dose: 250 mls/hr Ipratropium [place] (Atrovent 0.5 Mg Neb.Maritza*) 0.5 mg INH [id number] AWAKE [facility] Last Admin: 08/20/17 05:59 Dose: 0.5 mg Levalbuterol HCl (Xopenex 1.25 Mg/0.5 Ml Neb.Maritza*) 1.25 mg INH [id number] AWAKE [facility] Last Admin: 08/20/17 05:58 Dose: 1.25 mg Methylprednisolone Sodium Succinate (Solu-Medrol 40 Mg) 40 mg IV Q8H [facility] Last Admin: 08/20/17 08:32 Dose: 40 mg Metoprolol Succinate (Toprol Xl Tab*) 50 mg PO DAILY [facility] Last Admin: 08/20/17 08:32 Dose: 50 mg Metoprolol Tartrate (Lopressor Iv*) 5 mg IV Q6H PRN PRN Reason: BLOOD PRESSURE Last Admin: 08/19/17 03:37 Dose: 5 mg Mometasone Furoate/Formoterol Fumar (Dulera 200/5 Mdi*) 2 puff INH BID [facility] Last Admin: 08/20/17 07:46 Dose: Not Given Morphine Sulfate (Morphine Vial*) 2 mg IV Q4H PRN PRN Reason: air hunger Last Admin: 08/20/17 09:36 Dose: 2 mg Multivitamins/Minerals (Theragran/Minerals Tab*) 1 tab PO DAILY [facility] Last Admin: 08/20/17 08:33 Dose: 1 tab Ticagrelor (Brilinta*) 90 mg PO BID [facility] Last Admin: 08/20/17 08:33 Dose: 90 mg Vital Signs - 8 hr 08/20/17 08/20/17 08/20/17 03:04 03:05 03:25 Temperature 98.4 F Pulse Rate 101 Respiratory 18 18 20 Rate Blood Pressure 140/68 (mmHg) O2 Sat by Pulse Oximetry 08/20/17 08/20/17 08/20/17 04:42 05:10 05:59 Temperature 98.4 F Pulse Rate 101 91 Respiratory 20 18 20 Rate Blood Pressure 140/68 (mmHg) O2 Sat by Pulse 98 Oximetry 08/20/17 08/20/17 08/20/17 07:25 07:32 09:36 Temperature 98.7 F Pulse Rate 107 Respiratory 20 20 24 Rate Blood Pressure 134/75 (mmHg) O2 Sat by Pulse 97 Oximetry Oxygen Devices in Use Now: Nasal Cannula Appearance: 66 yo f in NAD, aAOx3 Eyes: No Scleral Icterus, PERRLA Ears/Nose/Mouth/Throat: NL Teeth, Lips, Gums, Mucous Membranes Moist Neck: NL Appearance and Movements; NL JVP, Trachea Midline, No Thyroid Enlargement, Masses Respiratory: Symmetrical Chest Expansion and Respiratory Effort, - - diffuse wheezes b/l with prolonged exp. phase Cardiovascular: NL Sounds; No Murmurs; No JVD, RRR Abdominal: NL Sounds; No Tenderness; No Distention Lymphatic: No Cervical Adenopathy Extremities: No Edema, No Clubbing, Cyanosis Skin: No Nodules or Sclerosis, - - petechiae on b/l hands improving Neurological: Alert and Oriented x 3, NL Muscle Strength and Tone Result Diagrams: 08/20/17 05:38 08/20/17 05:38 Additional Lab and Data: Lab Results 08/18/17 08/18/17 08/18/17 Range/Units 10:37 10:37 10:37 WBC 6.1 (3.5-10.8) 10^3/ul RBC 4.58 (4.0-5.4) 10^6/ul Hgb 15.0 (12.0-16.0) g/dl Hct 44 (35-47) % MCV 95 (80-97) fL MCH 33 H (27-31) pg MCHC 35 (31-36) g/dl RDW 14 (10.5-15) % Plt Count 177 (150-450) 10^3/ul MPV 7.7 (7.4-10.4) um3 Neut % (Auto) 73.6 (38-83) % Lymph % (Auto) 12.6 L (25-47) % Moore % (Auto) 10.1 H (0-7) % Eos % (Auto) 3.4 (0-6) % Baso % (Auto) 0.3 (0-2) % Absolute Neuts (auto) 4.5 (1.5-7.7) 10^3/ul Absolute Lymphs (auto) 0.8 L (1.0-4.8) 10^3/ul Absolute Monos (auto) 0.6 (0-0.8) 10^3/ul Absolute Eos (auto) 0.2 (0-0.6) 10^3/ul Absolute Basos (auto) 0 (0-0.2) 10^3/ul Absolute Nucleated RBC 0 10^3/ul Nucleated RBC % 0.1 INR (Anticoag Therapy) 0.86 (0.77-1.02) APTT 31.5 (26.0-36.3) seconds Sodium 132 L (139-145) mmol/L Potassium 3.6 (3.5-5.0) mmol/L Chloride 97 L (101-111) mmol/L Carbon Dioxide 23 (22-32) mmol/L Anion Gap 12 H (2-11) mmol/L BUN 7 (6-24) mg/dL Creatinine 0.80 (0.51-0.95) mg/dL Est GFR ( Amer) 92.3 (>60) Est GFR (Non-Af Amer) 71.8 (>60) BUN/Creatinine Ratio 8.8 (8-20) Glucose 92 (70-100) mg/dL Lactic Acid (0.5-2.0) mmol/L Calcium 9.2 (8.6-10.3) mg/dL Magnesium 1.9 (1.9-2.7) mg/dL Total Bilirubin 0.50 (0.2-1.0) mg/dL AST 37 (13-39) U/L ALT 20 (7-52) U/L Alkaline Phosphatase 84 (34-104) U/L Total Creatine Kinase 171 (10-223) U/L Troponin I 1.00 H* (<0.04) ng/mL C-Reactive Protein 8.19 H (< 5.00) mg/L B-Natriuretic Peptide ( - 100) pg/mL Total Protein 6.9 (6.4-8.9) g/dL Albumin 4.4 (3.2-5.2) g/dL Globulin 2.5 (2-4) g/dL Albumin/Globulin Ratio 1.8 (1-3) Lipase 22 (11.0-82.0) U/L 18 08/18/17 Range/Units 10:37 10:37 WBC (3.5-10.8) 10^3/ul RBC (4.0-5.4) 10^6/ul Hgb (12.0-16.0) g/dl Hct (35-47) % MCV (80-97) fL MCH (27-31) pg MCHC (31-36) g/dl RDW (10.5-15) % Plt Count (150-450) 10^3/ul MPV (7.4-10.4) um3 Neut % (Auto) (38-83) % Lymph % (Auto) (25-47) % Moore % (Auto) (0-7) % Eos % (Auto) (0-6) % Baso % (Auto) (0-2) % Absolute Neuts (auto) (1.5-7.7) 10^3/ul Absolute Lymphs (auto) (1.0-4.8) 10^3/ul Absolute Monos (auto) (0-0.8) 10^3/ul Absolute Eos (auto) (0-0.6) 10^3/ul Absolute Basos (auto) (0-0.2) 10^3/ul Absolute Nucleated RBC 10^3/ul Nucleated RBC % INR (Anticoag Therapy) (0.77-1.02) APTT (26.0-36.3) seconds Sodium (139-145) mmol/L Potassium (3.5-5.0) mmol/L Chloride (101-111) mmol/L Carbon Dioxide (22-32) mmol/L Anion Gap (2-11) mmol/L BUN (6-24) mg/dL Creatinine (0.51-0.95) mg/dL Est GFR ( Amer) (>60) Est GFR (Non-Af Amer) (>60) BUN/Creatinine Ratio (8-20) Glucose (70-100) mg/dL Lactic Acid 1.9 (0.5-2.0) mmol/L Calcium (8.6-10.3) mg/dL Magnesium (1.9-2.7) mg/dL Total Bilirubin (0.2-1.0) mg/dL AST (13-39) U/L ALT (7-52) U/L Alkaline Phosphatase (34-104) U/L Total Creatine Kinase (10-223) U/L Troponin I (<0.04) ng/mL C-Reactive Protein (< 5.00) mg/L B-Natriuretic Peptide 67 ( - 100) pg/mL Total Protein (6.4-8.9) g/dL Albumin (3.2-5.2) g/dL Globulin (2-4) g/dL Albumin/Globulin Ratio (1-3) Lipase (11.0-82.0) U/L Assess/Plan/Problems-Billing Assessment: 66 yo f with h/o nonobstructive CAD (cath in 1999 showed no significant blockages), COPD(current smoker approx 1 ppd ) presents with COPD exacerbation and elevated troponin - Patient Problems (1) COPD exacerbation Comment: severe, cont solu Medrol and Ceftriaxone/Azithro, no evidence of pneumonia, so far (2) Symptomatic carotid artery stenosis Comment: h/o s/p left CEA in 02/2018 (3) Chronic urticaria Comment: cont thorazine prn (4) Hypertension Comment: cont outpatient meds, cont lopressor prn IV (5) Troponin I above reference range Comment: suspcet demand ischemia. Denies CP. appreciate dr. Felix's consult. Stress test as outpatient Echo shows EF 55%, no significant valvular abn. EKG changes noted-likely demand ischemia from hypoxemia and WOB cont ASA/Brilinta (6) Lung nodule, multiple Comment: biggest at 0.7 cm , for outpatient f/u CT in 6 months, pt informed (7) DVT prophylaxis Comment: HSQ Status and Disposition: inpatient
[2017-08-20] MEDS: Azithromycin IV(*) 500 MG in NS 0.9% 250 ML* 250 ML IVPB SCH (10:34)
--- NOTE | 2017-08-20 21:03 | PN ---
Hospitalist Progress Note Date of Service: 08/20/17 While evaluating another pt for rapid response, RN of pt mentioned that she feels that patient is "becoming congested," and requested for patient to be re- evaluated. Pt seen and examined and patient seen resting comfortably in bed, and pt has classing "[place]-puffer" facie of emphysema. Pt seen pursing lips, without any cyanosis, but appeared pink in hue. Pt's RR = 25 with diffuse wheezing all throughout lung solis, with good air entry, No Rales nor ronchi. (+) JVD but no BLLE edema. Assessment and Plan: -Pt SOB is likely predominantly due to COPD exacerbation as previously documented -Pt had rapid taper from 60 mg IV q8H to 40 mg IV q8H -Will give 1x 125 mg IV Solumedrol and increase maintenance to 50 mg IV q8H. Would recommend a slow taper -Reviewed echo, however, her echo is suboptimal to further evaluate right heart pressures given her JVD---it is unclear to me whether her JVD is due to secondary pulmonary hypertension of chronic COPD vs mild right sided heart failure given 6 lbs increase since weight was first checked on admission; however, I could not appreciate an S3 and patient does NOT have any BLLE edema. Her I/O's however are in the positive 1 L range. -Thus, will also give 1x dose of 20 mg IV lasix, until above can be further clarified on re-eval by AM rounding team. Pt noted to be hypertensive in 140/91 -Repeat CXR reviewed, pending radiologist interpretation; per my wet-read, I do not see any acute issues from previous imaging -Awaiting ABG ordered -BNP and BMP ordered -Will follow
[2017-08-20] MEDS ORDERED: methylPREDNISolone 125 MG* 2 ML VIAL IV ONE (21:15)
--- NOTE | 2017-08-20 21:23 | RAD ---
Indication: Change in lung sounds. Shortness of breath. Single frontal view of the chest performed at 2040 hours was reviewed. Comparison is made with previous exam dated August 19, 2017. No mediastinal shift is noted. Heart is of normal size and configuration. Lung solis appear clear. IMPRESSION: NO ACTIVE CARDIOPULMONARY DISEASE IS NOTED.
[2017-08-21 02:13] LABS: EGFR Non-African American 62.6 (>60)
[2017-08-21] MEDS: Morphine VIAL* 4 MG/ML VIAL (1 ml vial) IV PRN ×4 (02:47→20:14)
[2017-08-21] MEDS: ALPRAZolam TAB* 0.25 MG PO PRN ×4 (02:51→20:45)
[2017-08-21] MEDS: Levalbuterol 1.25MG/0.5ML NEB INH SCH ×6 (03:13→22:54)
[2017-08-21] MEDS: Ipratropium 0.5MG/2.5ML NEB* 0.5 MG/2.5 ML NEB.SOLN INH SCH ×6 (03:13→22:54)
[2017-08-21] MEDS: Metoprolol Tartrate IV* 1 MG/ML 5 ML VIAL IV PRN ×3 (04:12→16:09)
[2017-08-21] MEDS: Heparin VIAL(*) 5000 UNITS/ML VIAL (FIVE THOUSAND) SUBCUT SCH ×3 (06:01→23:05)
[2017-08-21] MEDS: methylPREDNISolone 125 MG* 2 ML VIAL IV SCH ×3 (06:01→21:38)
[2017-08-21] MEDS: Mometasone/Formoter 200/5 MDI INH SCH ×2 (07:11→19:59)
[2017-08-21] MEDS: Metoprolol Succinate XL TAB* 50 MG PO SCH (08:20)
[2017-08-21] MEDS: Ticagrelor* 90 MG TAB PO SCH ×2 (08:20→20:45)
[2017-08-21] MEDS: Multivitamins/Minerals TAB PO SCH (08:20)
[2017-08-21] MEDS: buPROPion SR TAB.SR* 150 MG PO SCH ×2 (08:20→20:45)
[2017-08-21] MEDS: Aspirin EC TAB* 81 MG TAB.EC PO SCH (08:20)
[2017-08-21] MEDS ORDERED: Albuterol/Ipratropium NEB.SOL* Albuterol 2.5 MG/Ipratropium 0.5 MG 3 ML INH PRN (09:02)
[2017-08-21] MEDS: amLODIPine TAB* 5 MG PO SCH (09:27)
[2017-08-21] MEDS: cefTRIAXone(*) 1 GM in NS 0.9% 50 ML* 50 ML IVPB SCH (09:28)
--- NOTE | 2017-08-21 10:03 | PN ---
Subjective Date of Service: 08/21/17 Interval History: Pt is in tripod position, anxious, hypertensive, co SOB, denies CP got Lasix 20 mg x2 at night Objective Active Medications: Acetaminophen (Tylenol Tab*) 650 mg PO Q4H PRN PRN Reason: FEVER/PAIN Al Hydrox/Mg Hydrox/Simethicone (Maalox Plus*) 30 ml PO Q6H PRN PRN Reason: INDIGESTION Albuterol/Ipratropium (Duoneb (Albuterol 2.5 Mg/Ipratropium 0.5 Mg)) 1 neb INH Q2H PRN PRN Reason: SOB/WHEEZING Alprazolam (Xanax Tab*) 0.25 mg PO TID PRN PRN Reason: AGITATION/ANXIETY Last Admin: 08/21/17 09:27 Dose: 0.25 mg Amlodipine Besylate (Norvasc Tab*) 5 mg PO DAILY [facility] Last Admin: 08/21/17 09:27 Dose: 5 mg Aspirin (Aspirin Ec Tab*) 81 mg PO DAILY [facility] Last Admin: 08/21/17 08:20 Dose: 81 mg Bupropion HCl (Wellbutrin Sr Tab*) 150 mg PO BID [facility] Last Admin: 08/21/17 08:20 Dose: 150 mg Heparin Sodium (Porcine) (Heparin Vial(*)) 5,000 units SUBCUT Q8HR [facility] Last Admin: 08/21/17 06:01 Dose: 5,000 units Hydroxyzine HCl (Atarax Tab*) 25 mg PO Q6H PRN PRN Reason: itching Ceftriaxone Sodium 1 gm/ (Sodium Chloride) 50 mls @ 200 mls/hr IVPB Q24H [facility] Last Admin: 08/21/17 09:28 Dose: 200 mls/hr Azithromycin 500 mg/ Sodium (Chloride) 250 mls @ 250 mls/hr IVPB Q24H [facility] Last Admin: 08/20/17 10:34 Dose: 250 mls/hr Ipratropium [place] (Atrovent 0.5 Mg Neb.Maritza*) 0.5 mg INH [id number] AWAKE [facility] Last Admin: 08/21/17 07:10 Dose: 0.5 mg Levalbuterol HCl (Xopenex 1.25 Mg/0.5 Ml Neb.Maritza*) 1.25 mg INH [id number] AWAKE [facility] Last Admin: 08/21/17 07:11 Dose: 1.25 mg Methylprednisolone Sodium Succinate (Solu-Medrol 125mg *) 50 mg IV Q8H [facility] Last Admin: 08/21/17 06:01 Dose: 50 mg Metoprolol Succinate (Toprol Xl Tab*) 50 mg PO DAILY [facility] Last Admin: 08/21/17 08:20 Dose: 50 mg Metoprolol Tartrate (Lopressor Iv*) 5 mg IV Q6H PRN PRN Reason: BLOOD PRESSURE Last Admin: 08/21/17 08:30 Dose: 5 mg Mometasone Furoate/Formoterol Fumar (Dulera 200/5 Mdi*) 2 puff INH BID [facility] Last Admin: 08/21/17 07:11 Dose: 2 puff Morphine Sulfate (Morphine Vial*) 2 mg IV Q4H PRN PRN Reason: air hunger Last Admin: 08/21/17 09:27 Dose: 2 mg Multivitamins/Minerals (Theragran/Minerals Tab*) 1 tab PO DAILY [facility] Last Admin: 08/21/17 08:20 Dose: 1 tab Ticagrelor (Brilinta*) 90 mg PO BID [facility] Last Admin: 08/21/17 08:20 Dose: 90 mg Vital Signs - 8 hr 08/21/17 08/21/17 08/21/17 02:47 02:51 03:13 Temperature Pulse Rate 97 Respiratory 26 26 20 Rate Blood Pressure (mmHg) O2 Sat by Pulse 97 Oximetry 08/21/17 08/21/17 08/21/17 03:59 04:13 06:01 Temperature 99.2 F 99.3 F Pulse Rate 103 103 Respiratory 16 16 20 Rate Blood Pressure 172/102 174/71 (mmHg) O2 Sat by Pulse 96 97 Oximetry 08/21/17 08/21/17 08/21/17 07:13 07:15 07:36 Temperature Pulse Rate 93 96 Respiratory 18 20 18 Rate Blood Pressure (mmHg) O2 Sat by Pulse 94 94 Oximetry 08/21/17 08/21/17 08:14 09:27 Temperature 98.4 F Pulse Rate 100 Respiratory 20 18 Rate Blood Pressure 201/94 (mmHg) O2 Sat by Pulse 95 Oximetry Oxygen Devices in Use Now: Nasal Cannula Appearance: 66 yo F in nAD, aAOx3 Eyes: No Scleral Icterus, PERRLA Ears/Nose/Mouth/Throat: NL Teeth, Lips, Gums, Mucous Membranes Moist Neck: NL Appearance and Movements; NL JVP, Trachea Midline Respiratory: Symmetrical Chest Expansion and Respiratory Effort, - - diffuse b/ l wheezes, prolonged expiratory phase Cardiovascular: NL Sounds; No Murmurs; No JVD, RRR Abdominal: NL Sounds; No Tenderness; No Distention Lymphatic: No Cervical Adenopathy Extremities: No Edema, No Clubbing, Cyanosis Skin: No Rash or Ulcers, No Nodules or Sclerosis Neurological: Alert and Oriented x 3, NL Muscle Strength and Tone Result Diagrams: 08/20/17 05:38 08/21/17 01:52 Additional Lab and Data: Lab Results 08/18/17 08/18/17 08/18/17 Range/Units 10:37 10:37 10:37 WBC 6.1 (3.5-10.8) 10^3/ul RBC 4.58 (4.0-5.4) 10^6/ul Hgb 15.0 (12.0-16.0) g/dl Hct 44 (35-47) % MCV 95 (80-97) fL MCH 33 H (27-31) pg MCHC 35 (31-36) g/dl RDW 14 (10.5-15) % Plt Count 177 (150-450) 10^3/ul MPV 7.7 (7.4-10.4) um3 Neut % (Auto) 73.6 (38-83) % Lymph % (Auto) 12.6 L (25-47) % [place] % (Auto) 10.1 H (0-7) % Eos % (Auto) 3.4 (0-6) % Baso % (Auto) 0.3 (0-2) % Absolute Neuts (auto) 4.5 (1.5-7.7) 10^3/ul Absolute Lymphs (auto) 0.8 L (1.0-4.8) 10^3/ul Absolute Monos (auto) 0.6 (0-0.8) 10^3/ul Absolute Eos (auto) 0.2 (0-0.6) 10^3/ul Absolute Basos (auto) 0 (0-0.2) 10^3/ul Absolute Nucleated RBC 0 10^3/ul Nucleated RBC % 0.1 INR (Anticoag Therapy) 0.86 (0.77-1.02) APTT 31.5 (26.0-36.3) seconds Sodium 132 L (139-145) mmol/L Potassium 3.6 (3.5-5.0) mmol/L Chloride 97 L (101-111) mmol/L Carbon Dioxide 23 (22-32) mmol/L Anion Gap 12 H (2-11) mmol/L BUN 7 (6-24) mg/dL Creatinine 0.80 (0.51-0.95) mg/dL Est GFR ( Amer) 92.3 (>60) Est GFR (Non-Af Amer) 71.8 (>60) BUN/Creatinine Ratio 8.8 (8-20) Glucose 92 (70-100) mg/dL Lactic Acid (0.5-2.0) mmol/L Calcium 9.2 (8.6-10.3) mg/dL Magnesium 1.9 (1.9-2.7) mg/dL Total Bilirubin 0.50 (0.2-1.0) mg/dL AST 37 (13-39) U/L ALT 20 (7-52) U/L Alkaline Phosphatase 84 (34-104) U/L Total Creatine Kinase 171 (10-223) U/L Troponin I 1.00 H* (<0.04) ng/mL C-Reactive Protein 8.19 H (< 5.00) mg/L B-Natriuretic Peptide ( - 100) pg/mL Total Protein 6.9 (6.4-8.9) g/dL Albumin 4.4 (3.2-5.2) g/dL Globulin 2.5 (2-4) g/dL Albumin/Globulin Ratio 1.8 (1-3) Lipase 22 (11.0-82.0) U/L 18 08/18/17 Range/Units 10:37 10:37 WBC (3.5-10.8) 10^3/ul RBC (4.0-5.4) 10^6/ul Hgb (12.0-16.0) g/dl Hct (35-47) % MCV (80-97) fL MCH (27-31) pg MCHC (31-36) g/dl RDW (10.5-15) % Plt Count (150-450) 10^3/ul MPV (7.4-10.4) um3 Neut % (Auto) (38-83) % Lymph % (Auto) (25-47) % [place] % (Auto) (0-7) % Eos % (Auto) (0-6) % Baso % (Auto) (0-2) % Absolute Neuts (auto) (1.5-7.7) 10^3/ul Absolute Lymphs (auto) (1.0-4.8) 10^3/ul Absolute Monos (auto) (0-0.8) 10^3/ul Absolute Eos (auto) (0-0.6) 10^3/ul Absolute Basos (auto) (0-0.2) 10^3/ul Absolute Nucleated RBC 10^3/ul Nucleated RBC % INR (Anticoag Therapy) (0.77-1.02) APTT (26.0-36.3) seconds Sodium (139-145) mmol/L Potassium (3.5-5.0) mmol/L Chloride (101-111) mmol/L Carbon Dioxide (22-32) mmol/L Anion Gap (2-11) mmol/L BUN (6-24) mg/dL Creatinine (0.51-0.95) mg/dL Est GFR ( Amer) (>60) Est GFR (Non-Af Amer) (>60) BUN/Creatinine Ratio (8-20) Glucose (70-100) mg/dL Lactic Acid 1.9 (0.5-2.0) mmol/L Calcium (8.6-10.3) mg/dL Magnesium (1.9-2.7) mg/dL Total Bilirubin (0.2-1.0) mg/dL AST (13-39) U/L ALT (7-52) U/L Alkaline Phosphatase (34-104) U/L Total Creatine Kinase (10-223) U/L Troponin I (<0.04) ng/mL C-Reactive Protein (< 5.00) mg/L B-Natriuretic Peptide 67 ( - 100) pg/mL Total Protein (6.4-8.9) g/dL Albumin (3.2-5.2) g/dL Globulin (2-4) g/dL Albumin/Globulin Ratio (1-3) Lipase (11.0-82.0) U/L Assess/Plan/Problems-Billing Assessment: 66 yo f with h/o nonobstructive CAD (cath in 1999 showed no significant blockages), COPD(current smoker approx 1 ppd ) presents with COPD exacerbation and elevated troponin - Patient Problems (1) COPD exacerbation Comment: severe, cont solu Medrol and Ceftriaxone/Azithro, no evidence of pneumonia, so far Night hospitalist increased pt's Solu Medrol from 40 to 50 mg, not sure if it makes a significant difference, but will ask Dr. Porter to see pt for further recommendations. suspect anxiety plays a major role. cont Xanax and morphine for air hunger. (2) Symptomatic carotid artery stenosis Comment: h/o s/p left CEA in 02/2018 (3) Chronic urticaria Comment: cont thorazine prn (4) Hypertension Comment: cont outpatient meds, cont lopressor prn IV added Norvasc today (5) Troponin I above reference range Comment: suspect demand ischemia. Denies CP. appreciate dr. Felix's consult. Stress test as outpatient Echo shows EF 55%, no significant valvular abn. EKG changes noted-likely demand ischemia from hypoxemia and WOB cont ASA/Brilinta (6) Lung nodule, multiple Comment: biggest at 0.7 cm , for outpatient f/u CT in 6 months, pt informed (7) DVT prophylaxis Comment: HSQ Status and Disposition: inpatient
[2017-08-21] MEDS: Azithromycin IV(*) 500 MG in NS 0.9% 250 ML* 250 ML IVPB SCH (11:31)
--- NOTE | 2017-08-21 16:44 | CONS ---
PULMONARY CONSULTATION REPORT: DATE OF CONSULT: 08/21/17 CONSULTATION REQUESTED BY: Dr. Ni Holm. REASON FOR CONSULT: Evaluation of shortness of breath, COPD exacerbation. HISTORY OF PRESENT ILLNESS: The patient is a 66-year-old female, current smoker , with history of COPD, who presents for evaluation of worsening shortness of breath. The patient reports sick contacts recently. The patient reports cold like symptoms with runny nose, sore throat, and started having worsening shortness of breath. The patient did not have improvement in symptoms with inhalers and decided to come into the emergency room for evaluation. The patient reports cough productive of thick phlegm. The patient reports difficulty expectorating the phlegm. The patient denies chest pain, palpitations, dizziness, loss of weight or appetite. The patient reports postnasal drip. The patient continues to smoke about three quarters a day. Further evaluation in the emergency room included EKG, which showed evidence of ST depressions and elevated troponin at 1.0 for which she underwent cardiology consultation. The patient was also initiated on inhalers and bronchodilators for acute COPD exacerbation. The patient was seen and examined at bedside. The patient reports no significant improvement in symptoms. She reports significant anxiety, was started on anxiety medications. The patient was also started on antibiotics. The patient did have elevated white count on admission , which could be secondary to steroids. PAST MEDICAL HISTORY: 1. COPD. 2. KS. 3. Hypertension. 4. Hyperlipidemia. 5. Coronary artery disease. 6. CVA. PAST SURGICAL HISTORY: 1. Carotid artery stent placement. 2. Hysterectomy. 3. Cholecystectomy. 4. Appendectomy. 5. Tonsillectomy. MEDICATIONS: 1. Hydroxyzine. 2. Wellbutrin. 3. Spiriva. 4. Brilinta. 5. Calvin-3. 6. Multivitamin. 7. Metoprolol. 8. Advair. 9. Rajani. 10. Aspirin. 11. Albuterol. ALLERGIES: LATEX allergy. FAMILY HISTORY: Mother with history of bypass surgery at 75 and diabetes. Father with laryngeal cancer. SOCIAL HISTORY: Current smoker, smokes three quarter packs per day for 50 years. Occasional alcohol intake. No drug abuse. REVIEW OF SYSTEMS: All 14 systems reviewed and as per HPI. PHYSICAL EXAM: The patient is in bed, in no apparent distress. Vital Signs: Temperature 98.9, pulse 98 beats per minute, respiratory rate 24 per minute, O2 sat 95% on 2 L, blood pressure 151/99. HEENT: Pupils equal, reactive to light. Mucous membranes moist. Respiratory: Slight use of accessory muscles of respiration, prolonged expiratory phase. Cardiovascular: S1, S2 present. Tachycardic. Abdomen: Soft, nontender, nondistended. Bowel sounds present. Extremities: Normal range of motion. No edema. Neuro: No focal deficits. Psych Exam: Slightly anxious. DIAGNOSTIC STUDIES/LAB DATA: WBC count 15.7, hemoglobin 13.5, hematocrit 40, platelet count 213. PH 7.42, pCO2 45, pO2 76, bicarb 28 on 28% FiO2. Sodium 133, potassium 4.2, chloride 97, bicarb 28, BUN 25, creatinine 0.9. Troponin elevated at 1, trending down. BNP coming down from 300 to 132. CTA of the chest performed on admission was personally reviewed by me including the chest x-ray, which showed no evidence of filling defects in pulmonary arteries, no significant evidence of pneumonia. Subcentimeter pulmonary nodules , largest measuring 0.6 cm in right lung, evidence of pleuroparenchymal scarring at the level of fissure on the left side. Echocardiogram was also reviewed. Mild concentric left ventricular hypertrophy , normal ejection fraction, normal systolic function, no significant diastolic dysfunction, RVSP could not be estimated. IMPRESSION AND PLAN: 66-year-old female, current smoker with significant smoking history, admitted with worsening shortness of breath after recent upper respiratory infection symptoms. Acute chronic obstructive pulmonary disease exacerbation likely secondary to viral bronchitis. The patient reports no significant improvement in symptoms, still has significant shortness of breath. She has significant end-expiratory wheeze on auscultation. She is on optimal treatment. Would not taper off Solu-Medrol yet. Continue with the current dose of IV Solu - Medrol. Will try hypertonic saline nebs as the patient reports having significant thick phlegm and having inability to expectorate the phlegm. She would benefit from morphine and Xanax, continue until symptoms improve. Pathophysiology of chronic obstructive pulmonary disease was discussed in detail. Signs of exacerbation were discussed. Continue with current management. Thank you for allowing me to participate in the care of your patient. Will follow up with you. D/w Dr Holm [id number]/[facility] #: [id number] [facility]
[2017-08-21] MEDS: Sodium Chloride(INHALANT) 7%* 4 ML NEB.SOLN INH SCH ×2 (19:59→22:54)
[2017-08-21] MEDS ORDERED: Morphine VIAL* 4 MG/ML VIAL (1 ml vial) IV ONE (21:15)
[2017-08-21] MEDS ORDERED: Furosemide IV* 10 MG/ML 2 ML VIAL (20 MG) IV SLOW PU ONE (21:15)
--- NOTE | 2017-08-21 21:33 | PN ---
Hospitalist Progress Note Date of Service: 08/21/17 Called to bedside to see patient for respiratory distress. Noted patient in tripod position and with increased work of breathing. Pt with obvious wheezing. Patient has just received nebs, steroids and morphine and xanax, despite this she still is having significant wheeze and sob. On exam RRR no murmurs, lungs with expiratory wheezing throughout, Discussed case with DR henderson, plan for bipap and icu tx, will give additional 2 mg morphine and 20 mg lasix, checking cxr, bp noted 200/100 suspect r.t WOB and anxiety, would like to try bipap morphine and lasix, if this doesn't improve bp will given additional BP agents, discussed case with attending Dr Costa, will follow closely,
--- NOTE | 2017-08-21 22:19 | RAD ---
Indication: Respiratory distress. COPD. History of tobacco use. Comparison: August 20, 2017 chest radiograph and August 18, 2017 CT. Technique: Upright AP 2121 hours Report: Elevated lung volumes and rarefaction of the mid to upper lung zone interstitial markings. No focal pulmonary lesion, compelling alveolar consolidation, pleural effusion, pneumothorax. The heart, pulmonary vasculature, and mediastinal contours are unremarkable. IMPRESSION: Stigmata of obstructive lung disease. No acute pulmonary or cardiac process evident.
[2017-08-22] MEDS: Levalbuterol 1.25MG/0.5ML NEB INH SCH ×6 (03:25→23:13)
[2017-08-22] MEDS: Sodium Chloride(INHALANT) 7%* 4 ML NEB.SOLN INH SCH ×6 (03:25→23:13)
[2017-08-22] MEDS: Ipratropium 0.5MG/2.5ML NEB* 0.5 MG/2.5 ML NEB.SOLN INH SCH ×6 (03:25→23:13)
[2017-08-22] MEDS: Morphine VIAL* 4 MG/ML VIAL (1 ml vial) IV PRN ×5 (04:08→19:46)
[2017-08-22] MEDS: methylPREDNISolone 125 MG* 2 ML VIAL IV SCH ×3 (06:03→22:10)
[2017-08-22] MEDS: Heparin VIAL(*) 5000 UNITS/ML VIAL (FIVE THOUSAND) SUBCUT SCH ×3 (06:04→22:10)
[2017-08-22 06:51] LABS: EGFR Non-African American 72.8 (>60)
[2017-08-22 07:00] LABS: ABS Basophils 0 10^3/ul (0-0.2); ABS Eosinophils 0 10^3/ul (0-0.6); ABS Lymphocytes 0.6 10^3/ul (1.0-4.8); ABS Monocytes 0.8 10^3/ul (0-0.8); ABS Neutrophils 10.2 10^3/ul (1.5-7.7); ABS Nucleated RBC 0 10^3/ul; Eosinophil % 0 % (0-6); Hematocrit 38 % (35-47); Hemoglobin 12.9 g/dl (12.0-16.0); Lymphocyte % 5.1 % (25-47); Mean Corpuscular HGB Conc 34 g/dl (31-36); Mean Corpuscular Hemoglobin 33 pg (27-31); Mean Corpuscular Volume 97 fL (80-97); Mean Platelet Volume 8.1 um3 (7.4-10.4); Nucleated Red Blood Cells % 0; Platelet Count 199 10^3/ul (150-450); Red Blood Count 3.93 10^6/ul (4.0-5.4); Red Cell Distribution Width 15 % (10.5-15); White Blood Count 11.6 10^3/ul (3.5-10.8)
[2017-08-22] MEDS: Metoprolol Succinate XL TAB* 50 MG PO SCH (08:22)
[2017-08-22] MEDS: Metoprolol Tartrate IV* 1 MG/ML 5 ML VIAL IV PRN (08:22)
[2017-08-22] MEDS: amLODIPine TAB* 5 MG PO SCH (08:22)
[2017-08-22] MEDS: Aspirin EC TAB* 81 MG TAB.EC PO SCH (08:22)
[2017-08-22] MEDS: Ticagrelor* 90 MG TAB PO SCH ×2 (08:23→20:32)
[2017-08-22] MEDS: ALPRAZolam TAB* 0.25 MG PO PRN ×3 (08:23→20:32)
[2017-08-22] MEDS: Multivitamins/Minerals TAB PO SCH (08:23)
[2017-08-22] MEDS: buPROPion SR TAB.SR* 150 MG PO SCH ×2 (08:23→20:32)
[2017-08-22] MEDS: Mometasone/Formoter 200/5 MDI INH SCH ×3 (09:20→19:48)
--- NOTE | 2017-08-22 09:24 | PN ---
Subjective Date of Service: 08/22/17 Interval History: pt had worsening of WOB, needed to be transferred to ICU on BIPAP. slept on BIPAP and feels more rested, but still very sOB with minimal exertion Objective Active Medications: Acetaminophen (Tylenol Tab*) 650 mg PO Q4H PRN PRN Reason: FEVER/PAIN Al Hydrox/Mg Hydrox/Simethicone (Maalox Plus*) 30 ml PO Q6H PRN PRN Reason: INDIGESTION Albuterol/Ipratropium (Duoneb (Albuterol 2.5 Mg/Ipratropium 0.5 Mg)) 1 neb INH Q2H PRN PRN Reason: SOB/WHEEZING Alprazolam (Xanax Tab*) 0.25 mg PO TID PRN PRN Reason: AGITATION/ANXIETY Last Admin: 08/22/17 08:23 Dose: 0.25 mg Amlodipine Besylate (Norvasc Tab*) 5 mg PO DAILY [facility] Last Admin: 08/22/17 08:22 Dose: 5 mg Aspirin (Aspirin Ec Tab*) 81 mg PO DAILY [facility] Last Admin: 08/22/17 08:22 Dose: 81 mg Bupropion HCl (Wellbutrin Sr Tab*) 150 mg PO BID [facility] Last Admin: 08/22/17 08:23 Dose: 150 mg Heparin Sodium (Porcine) (Heparin Vial(*)) 5,000 units SUBCUT Q8HR [facility] Last Admin: 08/22/17 06:04 Dose: 5,000 units Hydroxyzine HCl (Atarax Tab*) 25 mg PO Q6H PRN PRN Reason: itching Ceftriaxone Sodium 1 gm/ (Sodium Chloride) 50 mls @ 200 mls/hr IVPB Q24H [facility] Last Admin: 08/21/17 09:28 Dose: 200 mls/hr Azithromycin 500 mg/ Sodium (Chloride) 250 mls @ 250 mls/hr IVPB Q24H [facility] Last Admin: 08/21/17 11:31 Dose: 250 mls/hr Ipratropium [place] (Atrovent 0.5 Mg Neb.Maritza*) 0.5 mg INH [id number] AWAKE [facility] Last Admin: 08/22/17 08:59 Dose: 0.5 mg Levalbuterol HCl (Xopenex 1.25 Mg/0.5 Ml Neb.Maritza*) 1.25 mg INH [id number] AWAKE [facility] Last Admin: 08/22/17 08:59 Dose: 1.25 mg Methylprednisolone Sodium Succinate (Solu-Medrol 125mg *) 50 mg IV Q8H [facility] Last Admin: 08/22/17 06:03 Dose: 50 mg Metoprolol Succinate (Toprol Xl Tab*) 50 mg PO DAILY [facility] Last Admin: 08/22/17 08:22 Dose: 50 mg Metoprolol Tartrate (Lopressor Iv*) 5 mg IV Q6H PRN PRN Reason: BLOOD PRESSURE Last Admin: 08/22/17 08:22 Dose: 5 mg Mometasone Furoate/Formoterol Fumar (Dulera 200/5 Mdi*) 2 puff INH BID [facility] Last Admin: 08/21/17 19:59 Dose: 2 puff Morphine Sulfate (Morphine Vial*) 2 mg IV Q4H PRN PRN Reason: air hunger Last Admin: 08/22/17 08:37 Dose: 2 mg Multivitamins/Minerals (Theragran/Minerals Tab*) 1 tab PO DAILY [facility] Last Admin: 08/22/17 08:23 Dose: 1 tab Sodium Chloride (Hyper-Lei 7%*) 4 ml INH [id number] AWAKE [facility] Last Admin: 08/22/17 03:25 Dose: 4 ml Ticagrelor (Brilinta*) 90 mg PO BID [facility] Last Admin: 08/22/17 08:23 Dose: 90 mg Vital Signs - 8 hr 08/22/17 08/22/17 08/22/17 01:30 02:00 02:31 Temperature Pulse Rate 79 83 88 Respiratory 13 13 17 Rate Blood Pressure 146/83 121/91 120/94 (mmHg) O2 Sat by Pulse 100 99 100 Oximetry 08/22/17 08/22/17 08/22/17 03:00 03:26 04:00 Temperature 96.6 F Pulse Rate 74 84 117 Respiratory 14 18 21 Rate Blood Pressure 144/94 (mmHg) O2 Sat by Pulse 100 100 91 Oximetry 08/22/17 08/22/17 08/22/17 04:01 04:08 04:30 Temperature Pulse Rate 115 103 97 Respiratory 19 17 16 Rate Blood Pressure 158/125 144/106 (mmHg) O2 Sat by Pulse 94 95 96 Oximetry 06/10/0208/22/17 08/22/17 05:00 05:30 06:00 Temperature Pulse Rate 85 81 87 Respiratory 12 11 14 Rate Blood Pressure 153/114 137/90 (mmHg) O2 Sat by Pulse 96 97 98 Oximetry 08/22/17 08/22/17 08/22/17 06:30 07:00 07:30 Temperature Pulse Rate 76 77 83 Respiratory 11 12 15 Rate Blood Pressure 154/85 156/87 187/99 (mmHg) O2 Sat by Pulse 99 99 100 Oximetry 08/22/17 08/22/17 08/22/17 07:41 08:23 08:37 Temperature 99.8 F Pulse Rate Respiratory 16 18 Rate Blood Pressure (mmHg) O2 Sat by Pulse Oximetry 08/22/17 09:00 Temperature Pulse Rate 79 Respiratory 17 Rate Blood Pressure (mmHg) O2 Sat by Pulse 97 Oximetry Oxygen Devices in Use Now: BiPAP Appearance: 66 yo F in nAD, aAOx3 Eyes: No Scleral Icterus, PERRLA Ears/Nose/Mouth/Throat: NL Teeth, Lips, Gums, Mucous Membranes Moist Neck: NL Appearance and Movements; NL JVP, Trachea Midline Respiratory: Symmetrical Chest Expansion and Respiratory Effort, - - diffuse wheezes b/l-unchanged from yesterday Cardiovascular: NL Sounds; No Murmurs; No JVD, RRR Abdominal: NL Sounds; No Tenderness; No Distention, No Hepatosplenomegaly Lymphatic: No Cervical Adenopathy Extremities: No Edema, No Clubbing, Cyanosis Skin: No Nodules or Sclerosis, - - petechiae on b/l hands-improving Neurological: Alert and Oriented x 3, NL Muscle Strength and Tone Result Diagrams: 08/22/17 06:03 08/22/17 06:03 Additional Lab and Data: Lab Results 08/18/17 08/18/17 08/18/17 Range/Units 10:37 10:37 10:37 WBC 6.1 (3.5-10.8) 10^3/ul RBC 4.58 (4.0-5.4) 10^6/ul Hgb 15.0 (12.0-16.0) g/dl Hct 44 (35-47) % MCV 95 (80-97) fL MCH 33 H (27-31) pg MCHC 35 (31-36) g/dl RDW 14 (10.5-15) % Plt Count 177 (150-450) 10^3/ul MPV 7.7 (7.4-10.4) um3 Neut % (Auto) 73.6 (38-83) % Lymph % (Auto) 12.6 L (25-47) % [place] % (Auto) 10.1 H (0-7) % Eos % (Auto) 3.4 (0-6) % Baso % (Auto) 0.3 (0-2) % Absolute Neuts (auto) 4.5 (1.5-7.7) 10^3/ul Absolute Lymphs (auto) 0.8 L (1.0-4.8) 10^3/ul Absolute Monos (auto) 0.6 (0-0.8) 10^3/ul Absolute Eos (auto) 0.2 (0-0.6) 10^3/ul Absolute Basos (auto) 0 (0-0.2) 10^3/ul Absolute Nucleated RBC 0 10^3/ul Nucleated RBC % 0.1 INR (Anticoag Therapy) 0.86 (0.77-1.02) APTT 31.5 (26.0-36.3) seconds Sodium 132 L (139-145) mmol/L Potassium 3.6 (3.5-5.0) mmol/L Chloride 97 L (101-111) mmol/L Carbon Dioxide 23 (22-32) mmol/L Anion Gap 12 H (2-11) mmol/L BUN 7 (6-24) mg/dL Creatinine 0.80 (0.51-0.95) mg/dL Est GFR ( Amer) 92.3 (>60) Est GFR (Non-Af Amer) 71.8 (>60) BUN/Creatinine Ratio 8.8 (8-20) Glucose 92 (70-100) mg/dL Lactic Acid (0.5-2.0) mmol/L Calcium 9.2 (8.6-10.3) mg/dL Magnesium 1.9 (1.9-2.7) mg/dL Total Bilirubin 0.50 (0.2-1.0) mg/dL AST 37 (13-39) U/L ALT 20 (7-52) U/L Alkaline Phosphatase 84 (34-104) U/L Total Creatine Kinase 171 (10-223) U/L Troponin I 1.00 H* (<0.04) ng/mL C-Reactive Protein 8.19 H (< 5.00) mg/L B-Natriuretic Peptide ( - 100) pg/mL Total Protein 6.9 (6.4-8.9) g/dL Albumin 4.4 (3.2-5.2) g/dL Globulin 2.5 (2-4) g/dL Albumin/Globulin Ratio 1.8 (1-3) Lipase 22 (11.0-82.0) U/L 08/18/17 08/18/17 Range/Units 10:37 10:37 WBC (3.5-10.8) 10^3/ul RBC (4.0-5.4) 10^6/ul Hgb (12.0-16.0) g/dl Hct (35-47) % MCV (80-97) fL MCH (27-31) pg MCHC (31-36) g/dl RDW (10.5-15) % Plt Count (150-450) 10^3/ul MPV (7.4-10.4) um3 Neut % (Auto) (38-83) % Lymph % (Auto) (25-47) % [place] % (Auto) (0-7) % Eos % (Auto) (0-6) % Baso % (Auto) (0-2) % Absolute Neuts (auto) (1.5-7.7) 10^3/ul Absolute Lymphs (auto) (1.0-4.8) 10^3/ul Absolute Monos (auto) (0-0.8) 10^3/ul Absolute Eos (auto) (0-0.6) 10^3/ul Absolute Basos (auto) (0-0.2) 10^3/ul Absolute Nucleated RBC 10^3/ul Nucleated RBC % INR (Anticoag Therapy) (0.77-1.02) APTT (26.0-36.3) seconds Sodium (139-145) mmol/L Potassium (3.5-5.0) mmol/L Chloride (101-111) mmol/L Carbon Dioxide (22-32) mmol/L Anion Gap (2-11) mmol/L BUN (6-24) mg/dL Creatinine (0.51-0.95) mg/dL Est GFR ( Amer) (>60) Est GFR (Non-Af Amer) (>60) BUN/Creatinine Ratio (8-20) Glucose (70-100) mg/dL Lactic Acid 1.9 (0.5-2.0) mmol/L Calcium (8.6-10.3) mg/dL Magnesium (1.9-2.7) mg/dL Total Bilirubin (0.2-1.0) mg/dL AST (13-39) U/L ALT (7-52) U/L Alkaline Phosphatase (34-104) U/L Total Creatine Kinase (10-223) U/L Troponin I (<0.04) ng/mL C-Reactive Protein (< 5.00) mg/L B-Natriuretic Peptide 67 ( - 100) pg/mL Total Protein (6.4-8.9) g/dL Albumin (3.2-5.2) g/dL Globulin (2-4) g/dL Albumin/Globulin Ratio (1-3) Lipase (11.0-82.0) U/L Microbiology and Other Data: Microbiology 08/21/17 22:40 Nasal Screen MRSA (PCR)([facility]) - Final Nasal Mrsa Not Detected Assess/Plan/Problems-Billing Assessment: 66 yo f with h/o nonobstructive CAD (cath in 1999 showed no significant blockages), COPD(current smoker approx 1 ppd ) presents with COPD exacerbation and elevated troponin - Patient Problems (1) COPD exacerbation Comment: severe with acute respiratory failure. cont solu Medrol and Ceftriaxone/Azithro, no evidence of pneumonia, so far cont Xanax and morphine for air hunger,it appears to play a significant role in pt's bronchospasm Appreciate Dr. Porter's consult No changes in meds today. cont BIPAP during the days for increased WOB (2) Symptomatic carotid artery stenosis Comment: h/o s/p left CEA in 02/2018 (3) Chronic urticaria Comment: cont thorazine prn (4) Hypertension Comment: will d/c lopressor (may cause more bronchospasm), start clonidine. increase Norvasc dose today (5) Troponin I above reference range Comment: suspect demand ischemia. Denies CP. appreciate dr. Felix's consult. Stress test as outpatient Echo shows EF 55%, no significant valvular abn. EKG changes noted-likely demand ischemia from hypoxemia and WOB cont ASA/Brilinta (6) Lung nodule, multiple Comment: biggest at 0.7 cm , for outpatient f/u CT in 6 months, pt informed (7) DVT prophylaxis Comment: HSQ Status and Disposition: inpatient
[2017-08-22] MEDS ORDERED: amLODIPine TAB* 5 MG PO ONE (09:33)
[2017-08-22] MEDS: cefTRIAXone(*) 1 GM in NS 0.9% 50 ML* 50 ML IVPB SCH (10:38)
[2017-08-22] MEDS: Azithromycin IV(*) 500 MG in NS 0.9% 250 ML* 250 ML IVPB SCH (11:06)
[2017-08-22] MEDS: cloNIDine TAB* 0.1 MG PO SCH ×3 (14:09→20:33)
[2017-08-22] MEDS ORDERED: Furosemide IV* 10 MG/ML VIAL (40 MG) IV ONE (15:25)
--- NOTE | 2017-08-22 15:52 | PN ---
Progress Note - Progress Note Date of Service: 08/22/17 - Pulm f/u Note: Pt seen and examined at bedside. Overnight events were noted. Pt was transferred to ICU for worsening SOB, was initiated on BiPAP. Pt reports improvement in breathing this am Active Medications Generic Name Dose Route Start Last Admin Trade Name Freq PRN Reason Stop Dose Admin Acetaminophen 650 mg 08/18/17 13:21 Tylenol Tab* PO Q4H PRN FEVER/PAIN Al Hydrox/Mg Hydrox/Simethicone 30 ml 08/18/17 13:21 Maalox Plus* PO Q6H PRN INDIGESTION Albuterol/Ipratropium 1 neb 08/21/17 09:02 08/22/17 15:13 Duoneb (Albuterol 2.5 Mg/Ipratropium 0.5 Mg) INH 1 neb Q2H PRN Administration SOB/WHEEZING Alprazolam 0.25 mg 08/20/17 02:53 08/22/17 13:21 Xanax Tab* PO 0.25 mg TID PRN Administration AGITATION/ANXIETY Amlodipine Besylate 10 mg 08/23/17 09:00 Norvasc Tab* PO DAILY [facility] Aspirin 81 mg 08/19/17 09:00 08/22/17 08:22 Aspirin Ec Tab* PO 81 mg DAILY [facility] Administration Azithromycin 500 mg 08/23/17 12:30 Zithromax Tab* PO 08/23/17 12:31 ONCE ONE Bupropion HCl 150 mg 08/18/17 21:00 08/22/17 08:23 Wellbutrin Sr Tab* PO 150 mg BID [facility] Administration Clonidine HCl 0.1 mg 08/22/17 14:00 08/22/17 14:09 Catapres Tab* PO Not Given TID [facility] Heparin Sodium (Porcine) 5,000 units 08/19/17 14:00 08/22/17 14:32 Heparin Vial(*) SUBCUT 5,000 units Q8HR [facility] Administration Hydroxyzine HCl 25 mg 08/19/17 10:17 Atarax Tab* PO Q6H PRN itching Ceftriaxone Sodium 1 gm/ 50 mls @ 200 mls/hr 08/19/17 10:00 08/22/17 10:38 Sodium Chloride IVPB 200 mls/hr Q24H [facility] Administration Ipratropium [place] 0.5 mg 08/19/17 02:00 08/22/17 14:51 Atrovent 0.5 Mg Neb.Maritza* INH 0.5 mg [id number] AWAKE [facility] Administration Levalbuterol HCl 1.25 mg 08/19/17 03:00 08/22/17 14:51 Xopenex 1.25 Mg/0.5 Ml Neb.Maritza* INH 1.25 mg [id number] AWAKE [facility] Administration Methylprednisolone Sodium Succinate 50 mg 08/21/17 06:00 08/22/17 14:32 Solu-Medrol 125mg * IV 50 mg Q8H [facility] Administration Mometasone Furoate/Formoterol Fumar 2 puff 08/18/17 21:00 08/22/17 11:02 Dulera 200/5 Mdi* INH 2 puff BID [facility] Administration Morphine Sulfate 2 mg 08/22/17 11:59 08/22/17 13:21 Morphine Vial* IV 2 mg Q2H PRN Administration air hunger Multivitamins/Minerals 1 tab 08/19/17 09:00 08/22/17 08:23 Theragran/Minerals Tab* PO 1 tab DAILY [facility] Administration Sodium Chloride 4 ml 08/21/17 19:00 08/22/17 14:51 Hyper-Lei 7%* INH Not Given [id number] AWAKE [facility] Ticagrelor 90 mg 08/18/17 21:00 08/22/17 08:23 Brilinta* PO 90 mg BID [facility] Administration Vital Signs Temp Pulse Resp BP Pulse Ox 97.6 F 83 14 115/67 95 08/22/17 15:38 08/22/17 15:13 08/22/17 15:13 08/22/17 14:01 08/22/17 15:13 O/E; Pt in NAD, lying in bed HEENT: PERRLA, BiPAP mask in place, no accessory muscle usage Lungs: Diminished air entry b/l, prolonged expiratory phase, wheeze present CVS: s1, S2+, regular Abd: Soft, BS+ Et: Normal ROM Neuro: No focal defecits Laboratory Results - last 24 hr 08/21/17 08/22/17 08/22/17 22:15 06:03 06:03 WBC 11.6 H RBC 3.93 L Hgb 12.9 Hct 38 MCV 97 MCH 33 H MCHC 34 RDW 15 Plt Count 199 MPV 8.1 Neut % (Auto) 87.9 H Lymph % (Auto) 5.1 L [place] % (Auto) 6.9 Eos % (Auto) 0 Baso % (Auto) 0.1 Absolute Neuts (auto) 10.2 H Absolute Lymphs (auto) 0.6 L Absolute Monos (auto) 0.8 Absolute Eos (auto) 0 Absolute Basos (auto) 0 Absolute Nucleated RBC 0 Nucleated RBC % 0 Patient Temperature Not Reportable ABG pH 7.40 ABG pH (Temp Correct) Not Reportable ABG pCO2 50 H ABG pCO2 (Temp Corrct Not Reportable ABG pO2 175 H ABG pO2 (Temp Correct Not Reportable ABG HCO3 28.8 ABG O2 Saturation 99.9 H ABG Base Excess 5.0 H Respiration Rate 16 O2 Delivery Device bipap Ventilator Type Not Reportable Vent Mode st FiO2 40 Inspiratory Time Not Reportable PEEP Not Reportable Pressure Support Not Reportable Pressure Control Not Reportable EPAP 6 IPAP 12 BiPAP Not Reportable Sodium 133 L Potassium 4.5 Chloride 96 L Carbon Dioxide 31 Anion Gap 6 BUN 22 Creatinine 0.79 Est GFR ( Amer) 93.6 Est GFR (Non-Af Amer) 72.8 BUN/Creatinine Ratio 27.8 H Glucose 146 H Calcium 9.9 66 y o f with signficant smoking history, current smoker a/w worsening SOB after viral bronchitis with acute COPD exacerbation Pt with no significant improvement, SOB has worsened and was transferred to ICU She was initiated on NIPPV given increased work of breathing SOB has improved with BiPAP C/w nebs, hypertonic salien nebs Will break from BiPAP during daytie c/w solumedrol, will not taper yet
[2017-08-23] MEDS: Levalbuterol 1.25MG/0.5ML NEB INH SCH ×4 (03:34→15:59)
[2017-08-23] MEDS: Sodium Chloride(INHALANT) 7%* 4 ML NEB.SOLN INH SCH ×3 (03:34→11:51)
[2017-08-23] MEDS: Ipratropium 0.5MG/2.5ML NEB* 0.5 MG/2.5 ML NEB.SOLN INH SCH ×4 (03:34→15:58)
[2017-08-23] MEDS: methylPREDNISolone 125 MG* 2 ML VIAL IV SCH ×3 (05:58→22:15)
[2017-08-23] MEDS: Heparin VIAL(*) 5000 UNITS/ML VIAL (FIVE THOUSAND) SUBCUT SCH ×3 (05:58→22:15)
[2017-08-23] MEDS: Mometasone/Formoter 200/5 MDI INH SCH ×2 (07:02→19:30)
[2017-08-23] MEDS: ALPRAZolam TAB* 0.25 MG PO PRN ×2 (07:42→19:55)
[2017-08-23] MEDS: Morphine VIAL* 4 MG/ML VIAL (1 ml vial) IV PRN ×2 (07:52→19:54)
[2017-08-23] MEDS: Aspirin EC TAB* 81 MG TAB.EC PO SCH (09:10)
[2017-08-23] MEDS: Ticagrelor* 90 MG TAB PO SCH ×2 (09:10→19:55)
[2017-08-23] MEDS: Multivitamins/Minerals TAB PO SCH (09:10)
[2017-08-23] MEDS: buPROPion SR TAB.SR* 150 MG PO SCH ×2 (09:11→19:55)
[2017-08-23] MEDS: amLODIPine TAB* 5 MG PO SCH (09:11)
[2017-08-23] MEDS: cloNIDine TAB* 0.1 MG PO SCH ×4 (09:11→20:55)
[2017-08-23] MEDS: cefTRIAXone(*) 1 GM in NS 0.9% 50 ML* 50 ML IVPB SCH (11:48)
[2017-08-23] MEDS: Albuterol 2.5 MG/3 ML NEB.SOL* (0.083%) INH SCH ×5 (11:54→20:38)
[2017-08-23] MEDS ORDERED: Azithromycin TAB* 250 MG PO ONE (12:30)
--- NOTE | 2017-08-23 12:43 | PN ---
Subjective Date of Service: 08/23/17 Interval History: Pt feels a little better today, although daughter presents in the room sees no difference from yesterday Had been on intermittent BIPAP and high flow NC. Dr. Richard and German are assisting with care. Objective Active Medications: Acetaminophen (Tylenol Tab*) 650 mg PO Q4H PRN PRN Reason: FEVER/PAIN Al Hydrox/Mg Hydrox/Simethicone (Maalox Plus*) 30 ml PO Q6H PRN PRN Reason: INDIGESTION Albuterol (Ventolin 2.5 Mg/3 Ml Neb.Maritza*) 2.5 mg INH Q2H [facility] Stop: 08/23/17 20:01 Last Admin: 08/23/17 11:54 Dose: 2.5 mg Albuterol/Ipratropium (Duoneb (Albuterol 2.5 Mg/Ipratropium 0.5 Mg)) 1 neb INH Q2H PRN PRN Reason: SOB/WHEEZING Last Admin: 08/22/17 15:13 Dose: 1 neb Alprazolam (Xanax Tab*) 0.25 mg PO TID PRN PRN Reason: AGITATION/ANXIETY Last Admin: 08/23/17 07:42 Dose: 0.25 mg Amlodipine Besylate (Norvasc Tab*) 10 mg PO DAILY [facility] Last Admin: 08/23/17 09:11 Dose: 10 mg Aspirin (Aspirin Ec Tab*) 81 mg PO DAILY [facility] Last Admin: 08/23/17 09:10 Dose: 81 mg Bupropion HCl (Wellbutrin Sr Tab*) 150 mg PO BID [facility] Last Admin: 08/23/17 09:11 Dose: 150 mg Clonidine HCl (Catapres Tab*) 0.1 mg PO TID [facility] Last Admin: 08/23/17 09:11 Dose: 0.1 mg Heparin Sodium (Porcine) (Heparin Vial(*)) 5,000 units SUBCUT Q8HR [facility] Last Admin: 08/23/17 05:58 Dose: 5,000 units Hydroxyzine HCl (Atarax Tab*) 25 mg PO Q6H PRN PRN Reason: itching Ceftriaxone Sodium 1 gm/ (Sodium Chloride) 50 mls @ 200 mls/hr IVPB Q24H [facility] Last Admin: 08/23/17 11:48 Dose: 200 mls/hr Ipratropium [place] (Atrovent 0.5 Mg Neb.Maritza*) 0.5 mg INH [id number] AWAKE [facility] Last Admin: 08/23/17 11:55 Dose: Not Given Levalbuterol HCl (Xopenex 1.25 Mg/0.5 Ml Neb.Maritza*) 1.25 mg INH [id number] AWAKE [facility] Last Admin: 08/23/17 11:51 Dose: Not Given Methylprednisolone Sodium Succinate (Solu-Medrol 125mg *) 50 mg IV Q8H [facility] Last Admin: 08/23/17 05:58 Dose: 50 mg Mometasone Furoate/Formoterol Fumar (Dulera 200/5 Mdi*) 2 puff INH BID [facility] Last Admin: 08/23/17 07:02 Dose: 2 puff Morphine Sulfate (Morphine Vial*) 2 mg IV Q2H PRN PRN Reason: air hunger Last Admin: 08/23/17 07:52 Dose: 2 mg Multivitamins/Minerals (Theragran/Minerals Tab*) 1 tab PO DAILY [facility] Last Admin: 08/23/17 09:10 Dose: 1 tab Ticagrelor (Brilinta*) 90 mg PO BID [facility] Last Admin: 08/23/17 09:10 Dose: 90 mg Vital Signs - 8 hr 08/23/17 08/23/17 08/23/17 04:55 05:00 05:30 Temperature Pulse Rate 75 75 74 Respiratory 13 14 18 Rate Blood Pressure 141/76 127/74 126/78 (mmHg) O2 Sat by Pulse 97 97 97 Oximetry 08/23/17 08/23/17 08/23/17 06:00 06:30 07:00 Temperature Pulse Rate 80 74 69 Respiratory 16 14 13 Rate Blood Pressure 155/85 149/69 (mmHg) O2 Sat by Pulse 98 99 99 Oximetry 08/23/17 08/23/17 08/23/17 07:01 07:07 07:30 Temperature 97.3 F Pulse Rate 82 86 Respiratory 27 16 Rate Blood Pressure 137/83 (mmHg) O2 Sat by Pulse 99 100 Oximetry 08/23/17 08/23/17 08/23/17 07:31 07:42 07:52 Temperature Pulse Rate 98 Respiratory 16 18 18 Rate Blood Pressure 172/110 (mmHg) O2 Sat by Pulse 95 Oximetry 08/23/17 08/23/17 08/23/17 08:00 08:30 09:00 Temperature Pulse Rate 89 83 90 Respiratory 14 17 17 Rate Blood Pressure 165/88 133/94 (mmHg) O2 Sat by Pulse 97 98 96 Oximetry 08/23/17 08/23/17 08/23/17 09:01 09:30 10:00 Temperature Pulse Rate 92 87 96 Respiratory 17 14 14 Rate Blood Pressure 144/85 117/80 (mmHg) O2 Sat by Pulse 96 98 99 Oximetry 08/23/17 08/23/17 08/23/17 10:01 10:30 11:00 Temperature Pulse Rate 95 93 90 Respiratory 18 17 18 Rate Blood Pressure 160/90 154/103 (mmHg) O2 Sat by Pulse 99 97 97 Oximetry 08/23/17 08/23/17 08/23/17 11:01 11:56 12:00 Temperature 98.2 F Pulse Rate 90 92 Respiratory 18 18 Rate Blood Pressure 99/82 (mmHg) O2 Sat by Pulse 97 94 Oximetry Oxygen Devices in Use Now: High Flow Nasal Cannula Appearance: 66 yo F in NAD, AAOx3, WOB seems decreased today, pt appears more comfortable Eyes: No Scleral Icterus, PERRLA Ears/Nose/Mouth/Throat: NL Teeth, Lips, Gums, Mucous Membranes Moist Neck: NL Appearance and Movements; NL JVP, Trachea Midline Respiratory: - - diffuse wheezes b/l-improved Cardiovascular: NL Sounds; No Murmurs; No JVD, RRR Abdominal: NL Sounds; No Tenderness; No Distention, No Hepatosplenomegaly Lymphatic: No Cervical Adenopathy, No Axillary Adenopathy Extremities: No Edema, No Clubbing, Cyanosis Skin: No Rash or Ulcers, No Nodules or Sclerosis Neurological: Alert and Oriented x 3, NL Muscle Strength and Tone Result Diagrams: 08/22/17 06:03 08/22/17 06:03 Additional Lab and Data: Lab Results 08/18/17 08/18/17 08/18/17 Range/Units 10:37 10:37 10:37 WBC 6.1 (3.5-10.8) 10^3/ul RBC 4.58 (4.0-5.4) 10^6/ul Hgb 15.0 (12.0-16.0) g/dl Hct 44 (35-47) % MCV 95 (80-97) fL MCH 33 H (27-31) pg MCHC 35 (31-36) g/dl RDW 14 (10.5-15) % Plt Count 177 (150-450) 10^3/ul MPV 7.7 (7.4-10.4) um3 Neut % (Auto) 73.6 (38-83) % Lymph % (Auto) 12.6 L (25-47) % [place] % (Auto) 10.1 H (0-7) % Eos % (Auto) 3.4 (0-6) % Baso % (Auto) 0.3 (0-2) % Absolute Neuts (auto) 4.5 (1.5-7.7) 10^3/ul Absolute Lymphs (auto) 0.8 L (1.0-4.8) 10^3/ul Absolute Monos (auto) 0.6 (0-0.8) 10^3/ul Absolute Eos (auto) 0.2 (0-0.6) 10^3/ul Absolute Basos (auto) 0 (0-0.2) 10^3/ul Absolute Nucleated RBC 0 10^3/ul Nucleated RBC % 0.1 INR (Anticoag Therapy) 0.86 (0.77-1.02) APTT 31.5 (26.0-36.3) seconds Sodium 132 L (139-145) mmol/L Potassium 3.6 (3.5-5.0) mmol/L Chloride 97 L (101-111) mmol/L Carbon Dioxide 23 (22-32) mmol/L Anion Gap 12 H (2-11) mmol/L BUN 7 (6-24) mg/dL Creatinine 0.80 (0.51-0.95) mg/dL Est GFR ( Amer) 92.3 (>60) Est GFR (Non-Af Amer) 71.8 (>60) BUN/Creatinine Ratio 8.8 (8-20) Glucose 92 (70-100) mg/dL Lactic Acid (0.5-2.0) mmol/L Calcium 9.2 (8.6-10.3) mg/dL Magnesium 1.9 (1.9-2.7) mg/dL Total Bilirubin 0.50 (0.2-1.0) mg/dL AST 37 (13-39) U/L ALT 20 (7-52) U/L Alkaline Phosphatase 84 (34-104) U/L Total Creatine Kinase 171 (10-223) U/L Troponin I 1.00 H* (<0.04) ng/mL C-Reactive Protein 8.19 H (< 5.00) mg/L B-Natriuretic Peptide ( - 100) pg/mL Total Protein 6.9 (6.4-8.9) g/dL Albumin 4.4 (3.2-5.2) g/dL Globulin 2.5 (2-4) g/dL Albumin/Globulin Ratio 1.8 (1-3) Lipase 22 (11.0-82.0) U/L 08/18/17 08/18/17 Range/Units 10:37 10:37 WBC (3.5-10.8) 10^3/ul RBC (4.0-5.4) 10^6/ul Hgb (12.0-16.0) g/dl Hct (35-47) % MCV (80-97) fL MCH (27-31) pg MCHC (31-36) g/dl RDW (10.5-15) % Plt Count (150-450) 10^3/ul MPV (7.4-10.4) um3 Neut % (Auto) (38-83) % Lymph % (Auto) (25-47) % [place] % (Auto) (0-7) % Eos % (Auto) (0-6) % Baso % (Auto) (0-2) % Absolute Neuts (auto) (1.5-7.7) 10^3/ul Absolute Lymphs (auto) (1.0-4.8) 10^3/ul Absolute Monos (auto) (0-0.8) 10^3/ul Absolute Eos (auto) (0-0.6) 10^3/ul Absolute Basos (auto) (0-0.2) 10^3/ul Absolute Nucleated RBC 10^3/ul Nucleated RBC % INR (Anticoag Therapy) (0.77-1.02) APTT (26.0-36.3) seconds Sodium (139-145) mmol/L Potassium (3.5-5.0) mmol/L Chloride (101-111) mmol/L Carbon Dioxide (22-32) mmol/L Anion Gap (2-11) mmol/L BUN (6-24) mg/dL Creatinine (0.51-0.95) mg/dL Est GFR ( Amer) (>60) Est GFR (Non-Af Amer) (>60) BUN/Creatinine Ratio (8-20) Glucose (70-100) mg/dL Lactic Acid 1.9 (0.5-2.0) mmol/L Calcium (8.6-10.3) mg/dL Magnesium (1.9-2.7) mg/dL Total Bilirubin (0.2-1.0) mg/dL AST (13-39) U/L ALT (7-52) U/L Alkaline Phosphatase (34-104) U/L Total Creatine Kinase (10-223) U/L Troponin I (<0.04) ng/mL C-Reactive Protein (< 5.00) mg/L B-Natriuretic Peptide 67 ( - 100) pg/mL Total Protein (6.4-8.9) g/dL Albumin (3.2-5.2) g/dL Globulin (2-4) g/dL Albumin/Globulin Ratio (1-3) Lipase (11.0-82.0) U/L Microbiology and Other Data: Microbiology 08/21/17 22:40 Nasal Screen MRSA (PCR)([facility]) - Final Nasal Mrsa Not Detected Assess/Plan/Problems-Billing Assessment: 66 yo f with h/o nonobstructive CAD (cath in 1999 showed no significant blockages), COPD(current smoker approx 1 ppd ) presents with COPD exacerbation and elevated troponin - Patient Problems (1) COPD exacerbation Comment: severe with acute respiratory failure. cont solu Medrol and Ceftriaxone/Azithro (last dose os Azithro today), no evidence of pneumonia, so far cont Xanax and morphine for air hunger,it appears to play a significant role in pt's bronchospasm Appreciate Dr. Porter's consult. Appreciate Dr. Love's imput. No changes in meds today (Apart for switching from xopenex to albuterol in duonebs). cont BIPAP during the days for increased WOB (2) Symptomatic carotid artery stenosis Comment: h/o s/p left CEA in 02/2018 (3) Chronic urticaria Comment: cont thorazine prn (4) Hypertension Comment: lopressor stopped on 08/22/17 (may cause more bronchospasm), started clonidine on 08/22/17. cont Norvasc (5) Troponin I above reference range Comment: suspect demand ischemia. Denies CP. appreciate dr. Felix's consult. Stress test as outpatient Echo shows EF 55%, no significant valvular abn. EKG changes noted-likely demand ischemia from hypoxemia and WOB cont ASA/Brilinta (6) Lung nodule, multiple Comment: biggest at 0.7 cm , for outpatient f/u CT in 6 months, pt informed (7) DVT prophylaxis Comment: HSQ Status and Disposition: inpatient
--- NOTE | 2017-08-23 20:45 | PN ---
Progress Note - Progress Note Date of Service: 08/23/17 - Pulm f/u note Note: Pt seen and examined at bedside. Pt reports improvement in breathing. Reports BiPAP has been very helpful, tolerated BiPAP well last night, was still on BiPAP this morning Active Medications Generic Name Dose Route Start Last Admin Trade Name Freq PRN Reason Stop Dose Admin Acetaminophen 650 mg 08/18/17 13:21 Tylenol Tab* PO Q4H PRN FEVER/PAIN Al Hydrox/Mg Hydrox/Simethicone 30 ml 08/18/17 13:21 Maalox Plus* PO Q6H PRN INDIGESTION Albuterol/Ipratropium 1 neb 08/21/17 09:02 08/22/17 15:13 Duoneb (Albuterol 2.5 Mg/Ipratropium 0.5 Mg) INH 1 neb Q2H PRN Administration SOB/WHEEZING Albuterol/Ipratropium 1 neb 08/23/17 21:00 Duoneb (Albuterol 2.5 Mg/Ipratropium 0.5 Mg) INH Q4H NATE Alprazolam 0.25 mg 08/20/17 02:53 08/23/17 19:55 Xanax Tab* PO 0.25 mg TID PRN Administration AGITATION/ANXIETY Amlodipine Besylate 10 mg 08/23/17 09:00 08/23/17 09:11 Norvasc Tab* PO 10 mg DAILY NATE Administration Aspirin 81 mg 08/19/17 09:00 08/23/17 09:10 Aspirin Ec Tab* PO 81 mg DAILY NATE Administration Bupropion HCl 150 mg 08/18/17 21:00 08/23/17 19:55 Wellbutrin Sr Tab* PO 150 mg BID NATE Administration Clonidine HCl 0.1 mg 08/22/17 14:00 08/23/17 15:14 Catapres Tab* PO Not Given TID NATE Heparin Sodium (Porcine) 5,000 units 08/19/17 14:00 08/23/17 14:23 Heparin Vial(*) SUBCUT 5,000 units Q8HR NATE Administration Hydroxyzine HCl 25 mg 08/19/17 10:17 Atarax Tab* PO Q6H PRN itching Ceftriaxone Sodium 1 gm/ 50 mls @ 200 mls/hr 08/19/17 10:00 08/23/17 11:48 Sodium Chloride IVPB 200 mls/hr Q24H NATE Administration Methylprednisolone Sodium Succinate 50 mg 08/21/17 06:00 08/23/17 14:23 Solu-Medrol 125mg * IV 50 mg Q8H NATE Administration Mometasone Furoate/Formoterol Fumar 2 puff 08/18/17 21:00 08/23/17 07:02 Dulera 200/5 Mdi* INH 2 puff BID NATE Administration Morphine Sulfate 2 mg 08/22/17 11:59 08/23/17 19:54 Morphine Vial* IV 2 mg Q2H PRN Administration air hunger Multivitamins/Minerals 1 tab 08/19/17 09:00 08/23/17 09:10 Theragran/Minerals Tab* PO 1 tab DAILY NATE Administration Ticagrelor 90 mg 08/18/17 21:00 08/23/17 19:55 Brilinta* PO 90 mg BID NATE Administration Vital Signs Temp Pulse Resp BP Pulse Ox 97.6 F 87 16 135/79 99 08/23/17 16:00 08/23/17 20:38 08/23/17 20:38 08/23/17 19:56 08/23/17 20:38 O/E; Pt in NAD, lying in bed HEENT: PERRLA, BiPAP mask in place, no accessory muscle usage Lungs: Diminished air entry b/l, prolonged expiratory phase, wheeze present CVS: s1, S2+, regular Abd: Soft, BS+ Et: Normal ROM Neuro: No focal defecits Labs: No new labs I/R: 66 y o f with signficant smoking history, current smoker a/w worsening SOB after viral bronchitis with acute COPD exacerbation Pt is improving on NIPPV Work of breathing is improving C/w nebs, hypertonic saline, meta nebs c/w BiPAP at night c/w solumedrol, will start taper in am
[2017-08-23] MEDS: Albuterol/Ipratropium NEB.SOL* Albuterol 2.5 MG/Ipratropium 0.5 MG 3 ML INH SCH (23:55)
[2017-08-24] MEDS: Albuterol/Ipratropium NEB.SOL* Albuterol 2.5 MG/Ipratropium 0.5 MG 3 ML INH SCH ×6 (03:45→23:32)
[2017-08-24] MEDS: methylPREDNISolone 125 MG* 2 ML VIAL IV SCH ×3 (05:45→22:39)
[2017-08-24] MEDS: Heparin VIAL(*) 5000 UNITS/ML VIAL (FIVE THOUSAND) SUBCUT SCH ×3 (05:45→22:39)
[2017-08-24] MEDS: ALPRAZolam TAB* 0.25 MG PO PRN ×2 (07:06→20:44)
[2017-08-24] MEDS: Morphine VIAL* 4 MG/ML VIAL (1 ml vial) IV PRN ×6 (07:06→23:52)
[2017-08-24] MEDS: Mometasone/Formoter 200/5 MDI INH SCH ×2 (07:22→19:43)
[2017-08-24] MEDS: Aspirin EC TAB* 81 MG TAB.EC PO SCH (07:59)
[2017-08-24] MEDS: buPROPion SR TAB.SR* 150 MG PO SCH ×2 (07:59→20:44)
[2017-08-24] MEDS: Ticagrelor* 90 MG TAB PO SCH ×2 (08:00→20:44)
[2017-08-24] MEDS: Multivitamins/Minerals TAB PO SCH (08:00)
[2017-08-24] MEDS: cloNIDine TAB* 0.1 MG PO SCH ×3 (08:03→20:44)
[2017-08-24] MEDS: amLODIPine TAB* 5 MG PO SCH (08:07)
[2017-08-24] MEDS ORDERED: Magnesium Hydroxide LIQ* 30 ML UDC PO PRN (08:25)
--- NOTE | 2017-08-24 08:27 | PN ---
Subjective Date of Service: 08/24/17 Interval History: Pt is feeling "a little better". sitting in a chair As per pt and RT hypertonic saline nebs made pt wheeze worse and were discontinued Pt c/o having problems with chewing food and SOB, almost aspirated on a piece of meat last night-will start soft diet Objective Active Medications: Acetaminophen (Tylenol Tab*) 650 mg PO Q4H PRN PRN Reason: FEVER/PAIN Al Hydrox/Mg Hydrox/Simethicone (Maalox Plus*) 30 ml PO Q6H PRN PRN Reason: INDIGESTION Albuterol/Ipratropium (Duoneb (Albuterol 2.5 Mg/Ipratropium 0.5 Mg)) 1 neb INH Q2H PRN PRN Reason: SOB/WHEEZING Last Admin: 08/22/17 15:13 Dose: 1 neb Albuterol/Ipratropium (Duoneb (Albuterol 2.5 Mg/Ipratropium 0.5 Mg)) 1 neb INH [id number] AWAKE [facility] Last Admin: 08/24/17 07:22 Dose: 1 neb Alprazolam (Xanax Tab*) 0.25 mg PO TID PRN PRN Reason: AGITATION/ANXIETY Last Admin: 08/24/17 07:06 Dose: 0.25 mg Amlodipine Besylate (Norvasc Tab*) 10 mg PO DAILY [facility] Last Admin: 08/24/17 08:07 Dose: 10 mg Aspirin (Aspirin Ec Tab*) 81 mg PO DAILY [facility] Last Admin: 08/24/17 07:59 Dose: 81 mg Bupropion HCl (Wellbutrin Sr Tab*) 150 mg PO BID [facility] Last Admin: 08/24/17 07:59 Dose: 150 mg Clonidine HCl (Catapres Tab*) 0.1 mg PO TID [facility] Last Admin: 08/24/17 08:03 Dose: 0.1 mg Heparin Sodium (Porcine) (Heparin Vial(*)) 5,000 units SUBCUT Q8HR [facility] Last Admin: 08/24/17 05:45 Dose: 5,000 units Hydroxyzine HCl (Atarax Tab*) 25 mg PO Q6H PRN PRN Reason: itching Ceftriaxone Sodium 1 gm/ (Sodium Chloride) 50 mls @ 200 mls/hr IVPB Q24H [facility] Last Admin: 08/23/17 11:48 Dose: 200 mls/hr Methylprednisolone Sodium Succinate (Solu-Medrol 125mg *) 50 mg IV Q8H [facility] Last Admin: 08/24/17 05:45 Dose: 50 mg Mometasone Furoate/Formoterol Fumar (Dulera 200/5 Mdi*) 2 puff INH BID [facility] Last Admin: 08/24/17 07:22 Dose: 2 puff Morphine Sulfate (Morphine Vial*) 2 mg IV Q2H PRN PRN Reason: air hunger Last Admin: 08/24/17 07:06 Dose: 2 mg Multivitamins/Minerals (Theragran/Minerals Tab*) 1 tab PO DAILY [facility] Last Admin: 08/24/17 08:00 Dose: 1 tab Ticagrelor (Brilinta*) 90 mg PO BID [facility] Last Admin: 08/24/17 08:00 Dose: 90 mg Vital Signs - 8 hr 08/24/17 08/24/17 08/24/17 00:30 01:00 01:30 Temperature Pulse Rate 88 88 84 Respiratory 13 23 26 Rate Blood Pressure 94/70 106/72 103/72 (mmHg) O2 Sat by Pulse 98 97 98 Oximetry 08/24/17 08/24/17 08/24/17 01:45 02:00 02:30 Temperature Pulse Rate 84 85 Respiratory 23 14 18 Rate Blood Pressure 103/70 120/80 (mmHg) O2 Sat by Pulse 98 98 Oximetry 08/24/17 08/24/17 08/24/17 03:00 03:30 03:45 Temperature Pulse Rate 83 80 82 Respiratory 20 27 15 Rate Blood Pressure 134/69 104/68 (mmHg) O2 Sat by Pulse 98 97 100 Oximetry 08/24/17 08/24/17 08/24/17 03:58 04:00 04:01 Temperature 97.2 F Pulse Rate 86 92 Respiratory 19 19 Rate Blood Pressure 99/86 (mmHg) O2 Sat by Pulse 97 99 Oximetry 08/24/17 08/24/17 08/24/17 04:30 05:00 05:01 Temperature Pulse Rate 81 76 77 Respiratory 12 20 21 Rate Blood Pressure 98/72 104/62 (mmHg) O2 Sat by Pulse 98 100 100 Oximetry 08/24/17 08/24/17 08/24/17 05:30 06:00 06:30 Temperature Pulse Rate 80 91 86 Respiratory 13 20 17 Rate Blood Pressure 123/69 134/76 158/78 (mmHg) O2 Sat by Pulse 100 98 99 Oximetry 08/24/17 08/24/17 08/24/17 07:00 07:06 07:25 Temperature Pulse Rate 84 89 Respiratory 16 19 22 Rate Blood Pressure 128/98 (mmHg) O2 Sat by Pulse 99 100 Oximetry 08/24/17 07:42 Temperature Pulse Rate 98 Respiratory 24 Rate Blood Pressure (mmHg) O2 Sat by Pulse 100 Oximetry Oxygen Devices in Use Now: BiPAP, High Flow Nasal Cannula Appearance: 66 yo F in nAD, AAOx3 Eyes: No Scleral Icterus, PERRLA Ears/Nose/Mouth/Throat: NL Teeth, Lips, Gums, Mucous Membranes Moist Neck: NL Appearance and Movements; NL JVP, Trachea Midline Respiratory: Symmetrical Chest Expansion and Respiratory Effort, - - diffuse b/ l wheezes-improving Cardiovascular: NL Sounds; No Murmurs; No JVD, RRR Abdominal: NL Sounds; No Tenderness; No Distention Lymphatic: No Cervical Adenopathy Extremities: No Edema, No Clubbing, Cyanosis Skin: No Rash or Ulcers, No Nodules or Sclerosis Neurological: Alert and Oriented x 3, NL Muscle Strength and Tone Result Diagrams: 08/22/17 06:03 08/22/17 06:03 Additional Lab and Data: Lab Results 08/18/17 08/18/17 08/18/17 Range/Units 10:37 10:37 10:37 WBC 6.1 (3.5-10.8) 10^3/ul RBC 4.58 (4.0-5.4) 10^6/ul Hgb 15.0 (12.0-16.0) g/dl Hct 44 (35-47) % MCV 95 (80-97) fL MCH 33 H (27-31) pg MCHC 35 (31-36) g/dl RDW 14 (10.5-15) % Plt Count 177 (150-450) 10^3/ul MPV 7.7 (7.4-10.4) um3 Neut % (Auto) 73.6 (38-83) % Lymph % (Auto) 12.6 L (25-47) % Chambers % (Auto) 10.1 H (0-7) % Eos % (Auto) 3.4 (0-6) % Baso % (Auto) 0.3 (0-2) % Absolute Neuts (auto) 4.5 (1.5-7.7) 10^3/ul Absolute Lymphs (auto) 0.8 L (1.0-4.8) 10^3/ul Absolute Monos (auto) 0.6 (0-0.8) 10^3/ul Absolute Eos (auto) 0.2 (0-0.6) 10^3/ul Absolute Basos (auto) 0 (0-0.2) 10^3/ul Absolute Nucleated RBC 0 10^3/ul Nucleated RBC % 0.1 INR (Anticoag Therapy) 0.86 (0.77-1.02) APTT 31.5 (26.0-36.3) seconds Sodium 132 L (139-145) mmol/L Potassium 3.6 (3.5-5.0) mmol/L Chloride 97 L (101-111) mmol/L Carbon Dioxide 23 (22-32) mmol/L Anion Gap 12 H (2-11) mmol/L BUN 7 (6-24) mg/dL Creatinine 0.80 (0.51-0.95) mg/dL Est GFR ( Amer) 92.3 (>60) Est GFR (Non-Af Amer) 71.8 (>60) BUN/Creatinine Ratio 8.8 (8-20) Glucose 92 (70-100) mg/dL Lactic Acid (0.5-2.0) mmol/L Calcium 9.2 (8.6-10.3) mg/dL Magnesium 1.9 (1.9-2.7) mg/dL Total Bilirubin 0.50 (0.2-1.0) mg/dL AST 37 (13-39) U/L ALT 20 (7-52) U/L Alkaline Phosphatase 84 (34-104) U/L Total Creatine Kinase 171 (10-223) U/L Troponin I 1.00 H* (<0.04) ng/mL C-Reactive Protein 8.19 H (< 5.00) mg/L B-Natriuretic Peptide ( - 100) pg/mL Total Protein 6.9 (6.4-8.9) g/dL Albumin 4.4 (3.2-5.2) g/dL Globulin 2.5 (2-4) g/dL Albumin/Globulin Ratio 1.8 (1-3) Lipase 22 (11.0-82.0) U/L 08/18/17 08/18/17 Range/Units 10:37 10:37 WBC (3.5-10.8) 10^3/ul RBC (4.0-5.4) 10^6/ul Hgb (12.0-16.0) g/dl Hct (35-47) % MCV (80-97) fL MCH (27-31) pg MCHC (31-36) g/dl RDW (10.5-15) % Plt Count (150-450) 10^3/ul MPV (7.4-10.4) um3 Neut % (Auto) (38-83) % Lymph % (Auto) (25-47) % Chambers % (Auto) (0-7) % Eos % (Auto) (0-6) % Baso % (Auto) (0-2) % Absolute Neuts (auto) (1.5-7.7) 10^3/ul Absolute Lymphs (auto) (1.0-4.8) 10^3/ul Absolute Monos (auto) (0-0.8) 10^3/ul Absolute Eos (auto) (0-0.6) 10^3/ul Absolute Basos (auto) (0-0.2) 10^3/ul Absolute Nucleated RBC 10^3/ul Nucleated RBC % INR (Anticoag Therapy) (0.77-1.02) APTT (26.0-36.3) seconds Sodium (139-145) mmol/L Potassium (3.5-5.0) mmol/L Chloride (101-111) mmol/L Carbon Dioxide (22-32) mmol/L Anion Gap (2-11) mmol/L BUN (6-24) mg/dL Creatinine (0.51-0.95) mg/dL Est GFR ( Amer) (>60) Est GFR (Non-Af Amer) (>60) BUN/Creatinine Ratio (8-20) Glucose (70-100) mg/dL Lactic Acid 1.9 (0.5-2.0) mmol/L Calcium (8.6-10.3) mg/dL Magnesium (1.9-2.7) mg/dL Total Bilirubin (0.2-1.0) mg/dL AST (13-39) U/L ALT (7-52) U/L Alkaline Phosphatase (34-104) U/L Total Creatine Kinase (10-223) U/L Troponin I (<0.04) ng/mL C-Reactive Protein (< 5.00) mg/L B-Natriuretic Peptide 67 ( - 100) pg/mL Total Protein (6.4-8.9) g/dL Albumin (3.2-5.2) g/dL Globulin (2-4) g/dL Albumin/Globulin Ratio (1-3) Lipase (11.0-82.0) U/L Microbiology and Other Data: Microbiology 08/21/17 22:40 Nasal Screen MRSA (PCR)([facility]) - Final Nasal Mrsa Not Detected Assess/Plan/Problems-Billing Assessment: 66 yo f with h/o nonobstructive CAD (cath in 1999 showed no significant blockages), COPD(current smoker approx 1 ppd ) presents with COPD exacerbation and elevated troponin - Patient Problems (1) COPD exacerbation Comment: severe with acute respiratory failure. cont solu Medrol and Ceftriaxone (last dose of Azithro was on ), no evidence of pneumonia, so far cont Xanax and morphine for air hunger,it appears to play a significant role in pt's bronchospasm Appreciate Dr. Porter's consult. Appreciate Dr. Love's imput. d/c hypertonic saline nebs due to pt's worsening bonchospasm with it. cont BIPAP during the day for increased WOB (2) Symptomatic carotid artery stenosis Comment: h/o s/p left CEA in 02/2018 (3) Chronic urticaria Comment: cont thorazine prn (4) Hypertension Comment: lopressor stopped on 08/22/17 (may cause more bronchospasm), started clonidine on 08/22/17. cont Norvasc (5) Troponin I above reference range Comment: suspect demand ischemia. Denies CP. appreciate dr. Felix's consult. Stress test as outpatient Echo shows EF 55%, no significant valvular abn. EKG changes noted-likely demand ischemia from hypoxemia and WOB cont ASA/Brilinta (6) Lung nodule, multiple Comment: biggest at 0.7 cm , for outpatient f/u CT in 6 months, pt informed (7) DVT prophylaxis Comment: HSQ Status and Disposition: inpatient
[2017-08-24] MEDS: Polyethylene Glycol 3350* 17 GM PACKET PO SCH (10:07)
[2017-08-24] MEDS: cefTRIAXone(*) 1 GM in NS 0.9% 50 ML* 50 ML IVPB SCH (10:07)
--- NOTE | 2017-08-24 11:07 | PN ---
Progress Note - Progress Note Date of Service: 08/24/17 Note: CRITICAL CARE MEDICINE Date: 08/24/17 Time: 1045 SUBJECTIVE: Patient seen and examined. actually feels maybe a little better. Still with wheeze. phases a bit better but pronounced exhalation remains. sitting in chair all am. PHYSICAL EXAM: Vital Signs: Reviewed. Neurologic: communicating well HEENT: pupils equal. Sclera anicteric. Trachea midline. Cardiovascular: S1 S2 Respiratory: audible wheeze upper and lower airways more equally today Abdomen: Soft, nt. No r/g/r. Extremities: Warm. LABS: Reviewed. IMAGING: Reviewed. MEDICATIONS: Reviewed. ASSESSMENT: 66 F Acute resp failure needing bipap rescue probable viral bronchitis > bact copd exac she a pinch better and clinically course more indicative of viral trigger perhaps. do worry about degree of TBM but this can certainly be exacerbated with bronchitis, and she certainly can do well with ppv as d/w her, we will try high flow today and maybe off set the negative pressure requirement and with flow and humidity perhaps help expedite her recovery. bipap still as needed. otherwise care as we are doing. still needs icu Critical Care Time: 20min FStephanie Love, DO
[2017-08-25] MEDS: Morphine VIAL* 4 MG/ML VIAL (1 ml vial) IV PRN ×7 (02:08→23:34)
[2017-08-25] MEDS: Albuterol/Ipratropium NEB.SOL* Albuterol 2.5 MG/Ipratropium 0.5 MG 3 ML INH SCH ×6 (03:29→23:30)
[2017-08-25 05:05] LABS: Hematocrit 37 % (35-47); Hemoglobin 12.6 g/dl (12.0-16.0); Mean Corpuscular HGB Conc 34 g/dl (31-36); Mean Corpuscular Hemoglobin 33 pg (27-31); Mean Corpuscular Volume 98 fL (80-97); Mean Platelet Volume 7.9 um3 (7.4-10.4); Platelet Count 202 10^3/ul (150-450); Red Blood Count 3.77 10^6/ul (4.0-5.4); Red Cell Distribution Width 15 % (10.5-15); White Blood Count 9.6 10^3/ul (3.5-10.8)
[2017-08-25 05:20] LABS: EGFR Non-African American 86.6 (>60)
[2017-08-25] MEDS: methylPREDNISolone 125 MG* 2 ML VIAL IV SCH ×3 (05:43→20:49)
[2017-08-25] MEDS: Heparin VIAL(*) 5000 UNITS/ML VIAL (FIVE THOUSAND) SUBCUT SCH ×3 (05:43→20:49)
[2017-08-25] MEDS: Mometasone/Formoter 200/5 MDI INH SCH ×2 (07:30→19:53)
[2017-08-25] MEDS: ALPRAZolam TAB* 0.25 MG PO PRN ×2 (07:55→20:39)
[2017-08-25] MEDS: Aspirin EC TAB* 81 MG TAB.EC PO SCH (07:55)
[2017-08-25] MEDS: amLODIPine TAB* 5 MG PO SCH (07:55)
[2017-08-25] MEDS: Multivitamins/Minerals TAB PO SCH (07:56)
[2017-08-25] MEDS: buPROPion SR TAB.SR* 150 MG PO SCH ×2 (07:56→20:39)
[2017-08-25] MEDS: cloNIDine TAB* 0.1 MG PO SCH ×3 (07:56→20:39)
[2017-08-25] MEDS: Polyethylene Glycol 3350* 17 GM PACKET PO SCH (07:56)
[2017-08-25] MEDS: Ticagrelor* 90 MG TAB PO SCH ×2 (07:56→20:40)
--- NOTE | 2017-08-25 09:08 | PN ---
Subjective Date of Service: 08/25/17 Interval History: Pt feels better. Now on Vapotherm gets heparin shots in arms due to large ecchymosis on abd Objective Active Medications: Acetaminophen (Tylenol Tab*) 650 mg PO Q4H PRN PRN Reason: FEVER/PAIN Al Hydrox/Mg Hydrox/Simethicone (Maalox Plus*) 30 ml PO Q6H PRN PRN Reason: INDIGESTION Albuterol/Ipratropium (Duoneb (Albuterol 2.5 Mg/Ipratropium 0.5 Mg)) 1 neb INH Q2H PRN PRN Reason: SOB/WHEEZING Last Admin: 08/22/17 15:13 Dose: 1 neb Albuterol/Ipratropium (Duoneb (Albuterol 2.5 Mg/Ipratropium 0.5 Mg)) 1 neb INH [id number] AWAKE [facility] Last Admin: 08/25/17 07:26 Dose: 1 neb Alprazolam (Xanax Tab*) 0.25 mg PO TID PRN PRN Reason: AGITATION/ANXIETY Last Admin: 08/25/17 07:55 Dose: 0.25 mg Amlodipine Besylate (Norvasc Tab*) 10 mg PO DAILY [facility] Last Admin: 08/25/17 07:55 Dose: 10 mg Aspirin (Aspirin Ec Tab*) 81 mg PO DAILY [facility] Last Admin: 08/25/17 07:55 Dose: 81 mg Bupropion HCl (Wellbutrin Sr Tab*) 150 mg PO BID [facility] Last Admin: 08/25/17 07:56 Dose: 150 mg Clonidine HCl (Catapres Tab*) 0.1 mg PO TID [facility] Last Admin: 08/25/17 07:56 Dose: 0.1 mg Heparin Sodium (Porcine) (Heparin Vial(*)) 5,000 units SUBCUT Q8HR [facility] Last Admin: 08/25/17 05:43 Dose: 5,000 units Hydroxyzine HCl (Atarax Tab*) 25 mg PO Q6H PRN PRN Reason: itching Ceftriaxone Sodium 1 gm/ (Sodium Chloride) 50 mls @ 200 mls/hr IVPB Q24H [facility] Last Admin: 08/24/17 10:07 Dose: 200 mls/hr Magnesium Hydroxide (Milk Of Magnesia Liq*) 30 ml PO Q4H PRN PRN Reason: CONSTIPATION Methylprednisolone Sodium Succinate (Solu-Medrol 125mg *) 50 mg IV Q8H [facility] Last Admin: 08/25/17 05:43 Dose: 50 mg Mometasone Furoate/Formoterol Fumar (Dulera 200/5 Mdi*) 2 puff INH BID [facility] Last Admin: 08/25/17 07:30 Dose: 2 puff Morphine Sulfate (Morphine Vial*) 2 mg IV Q2H PRN PRN Reason: air hunger Last Admin: 08/25/17 06:15 Dose: 2 mg Multivitamins/Minerals (Theragran/Minerals Tab*) 1 tab PO DAILY [facility] Last Admin: 08/25/17 07:56 Dose: 1 tab Polyethylene Glycol/Electrolytes (Miralax*) 17 gm PO DAILY [facility] Last Admin: 08/25/17 07:56 Dose: 17 gm Ticagrelor (Brilinta*) 90 mg PO BID [facility] Last Admin: 08/25/17 07:56 Dose: 90 mg Vital Signs - 8 hr 08/25/17 08/25/17 08/25/17 02:00 02:01 02:08 Temperature Pulse Rate 91 95 Respiratory 15 18 Rate Blood Pressure 136/86 (mmHg) O2 Sat by Pulse 100 100 Oximetry 08/25/17 08/25/17 08/25/17 03:00 03:29 03:38 Temperature 97.0 F Pulse Rate 78 85 Respiratory 12 16 Rate Blood Pressure 128/72 (mmHg) O2 Sat by Pulse 99 100 Oximetry 08/25/17 08/25/17 08/25/17 03:57 04:00 05:00 Temperature Pulse Rate 88 87 Respiratory 12 13 20 Rate Blood Pressure 108/77 117/79 (mmHg) O2 Sat by Pulse 100 100 Oximetry 08/25/17 08/25/17 08/25/17 05:36 06:00 06:15 Temperature Pulse Rate 91 Respiratory 16 14 18 Rate Blood Pressure (mmHg) O2 Sat by Pulse 98 Oximetry 08/25/17 08/25/17 08/25/17 07:00 07:25 07:34 Temperature Pulse Rate 92 95 98 Respiratory 16 18 18 Rate Blood Pressure 143/93 165/90 (mmHg) O2 Sat by Pulse 100 100 99 Oximetry 08/25/17 08/25/17 08/25/17 07:55 08:00 08:02 Temperature 97 F Pulse Rate 100 109 Respiratory 19 20 12 Rate Blood Pressure 98/67 (mmHg) O2 Sat by Pulse 98 94 Oximetry 08/25/17 09:00 Temperature Pulse Rate 99 Respiratory 14 Rate Blood Pressure (mmHg) O2 Sat by Pulse 100 Oximetry Oxygen Devices in Use Now: BiPAP, High Flow Heated Nasal Cannula Appearance: 66 yo F in nAD, aAOx3 Eyes: No Scleral Icterus, PERRLA Ears/Nose/Mouth/Throat: NL Teeth, Lips, Gums, Mucous Membranes Moist Neck: NL Appearance and Movements; NL JVP, Trachea Midline Respiratory: Symmetrical Chest Expansion and Respiratory Effort, - - b/l mid lung wheezes with markedly improved air entry on exam-bropnchospasm is improving Cardiovascular: NL Sounds; No Murmurs; No JVD, RRR Abdominal: NL Sounds; No Tenderness; No Distention, No Hepatosplenomegaly, - - large ecchymoses from heparin injections, NT, BS+ Lymphatic: No Cervical Adenopathy Extremities: No Edema, No Clubbing, Cyanosis Skin: No Nodules or Sclerosis Neurological: Alert and Oriented x 3, NL Muscle Strength and Tone Result Diagrams: 08/25/17 04:48 08/25/17 04:48 Additional Lab and Data: Lab Results 08/18/17 08/18/17 08/18/17 Range/Units 10:37 10:37 10:37 WBC 6.1 (3.5-10.8) 10^3/ul RBC 4.58 (4.0-5.4) 10^6/ul Hgb 15.0 (12.0-16.0) g/dl Hct 44 (35-47) % MCV 95 (80-97) fL MCH 33 H (27-31) pg MCHC 35 (31-36) g/dl RDW 14 (10.5-15) % Plt Count 177 (150-450) 10^3/ul MPV 7.7 (7.4-10.4) um3 Neut % (Auto) 73.6 (38-83) % Lymph % (Auto) 12.6 L (25-47) % Rhea % (Auto) 10.1 H (0-7) % Eos % (Auto) 3.4 (0-6) % Baso % (Auto) 0.3 (0-2) % Absolute Neuts (auto) 4.5 (1.5-7.7) 10^3/ul Absolute Lymphs (auto) 0.8 L (1.0-4.8) 10^3/ul Absolute Monos (auto) 0.6 (0-0.8) 10^3/ul Absolute Eos (auto) 0.2 (0-0.6) 10^3/ul Absolute Basos (auto) 0 (0-0.2) 10^3/ul Absolute Nucleated RBC 0 10^3/ul Nucleated RBC % 0.1 INR (Anticoag Therapy) 0.86 (0.77-1.02) APTT 31.5 (26.0-36.3) seconds Sodium 132 L (139-145) mmol/L Potassium 3.6 (3.5-5.0) mmol/L Chloride 97 L (101-111) mmol/L Carbon Dioxide 23 (22-32) mmol/L Anion Gap 12 H (2-11) mmol/L BUN 7 (6-24) mg/dL Creatinine 0.80 (0.51-0.95) mg/dL Est GFR ( Amer) 92.3 (>60) Est GFR (Non-Af Amer) 71.8 (>60) BUN/Creatinine Ratio 8.8 (8-20) Glucose 92 (70-100) mg/dL Lactic Acid (0.5-2.0) mmol/L Calcium 9.2 (8.6-10.3) mg/dL Magnesium 1.9 (1.9-2.7) mg/dL Total Bilirubin 0.50 (0.2-1.0) mg/dL AST 37 (13-39) U/L ALT 20 (7-52) U/L Alkaline Phosphatase 84 (34-104) U/L Total Creatine Kinase 171 (10-223) U/L Troponin I 1.00 H* (<0.04) ng/mL C-Reactive Protein 8.19 H (< 5.00) mg/L B-Natriuretic Peptide ( - 100) pg/mL Total Protein 6.9 (6.4-8.9) g/dL Albumin 4.4 (3.2-5.2) g/dL Globulin 2.5 (2-4) g/dL Albumin/Globulin Ratio 1.8 (1-3) Lipase 22 (11.0-82.0) U/L 08/18/17 08/18/17 Range/Units 10:37 10:37 WBC (3.5-10.8) 10^3/ul RBC (4.0-5.4) 10^6/ul Hgb (12.0-16.0) g/dl Hct (35-47) % MCV (80-97) fL MCH (27-31) pg MCHC (31-36) g/dl RDW (10.5-15) % Plt Count (150-450) 10^3/ul MPV (7.4-10.4) um3 Neut % (Auto) (38-83) % Lymph % (Auto) (25-47) % Rhea % (Auto) (0-7) % Eos % (Auto) (0-6) % Baso % (Auto) (0-2) % Absolute Neuts (auto) (1.5-7.7) 10^3/ul Absolute Lymphs (auto) (1.0-4.8) 10^3/ul Absolute Monos (auto) (0-0.8) 10^3/ul Absolute Eos (auto) (0-0.6) 10^3/ul Absolute Basos (auto) (0-0.2) 10^3/ul Absolute Nucleated RBC 10^3/ul Nucleated RBC % INR (Anticoag Therapy) (0.77-1.02) APTT (26.0-36.3) seconds Sodium (139-145) mmol/L Potassium (3.5-5.0) mmol/L Chloride (101-111) mmol/L Carbon Dioxide (22-32) mmol/L Anion Gap (2-11) mmol/L BUN (6-24) mg/dL Creatinine (0.51-0.95) mg/dL Est GFR ( Amer) (>60) Est GFR (Non-Af Amer) (>60) BUN/Creatinine Ratio (8-20) Glucose (70-100) mg/dL Lactic Acid 1.9 (0.5-2.0) mmol/L Calcium (8.6-10.3) mg/dL Magnesium (1.9-2.7) mg/dL Total Bilirubin (0.2-1.0) mg/dL AST (13-39) U/L ALT (7-52) U/L Alkaline Phosphatase (34-104) U/L Total Creatine Kinase (10-223) U/L Troponin I (<0.04) ng/mL C-Reactive Protein (< 5.00) mg/L B-Natriuretic Peptide 67 ( - 100) pg/mL Total Protein (6.4-8.9) g/dL Albumin (3.2-5.2) g/dL Globulin (2-4) g/dL Albumin/Globulin Ratio (1-3) Lipase (11.0-82.0) U/L Microbiology and Other Data: Microbiology 08/21/17 22:40 Nasal Screen MRSA (PCR)([facility]) - Final Nasal Mrsa Not Detected Assess/Plan/Problems-Billing Assessment: 66 yo f with h/o nonobstructive CAD (cath in 1999 showed no significant blockages), COPD(current smoker approx 1 ppd ) presents with COPD exacerbation and elevated troponin - Patient Problems (1) COPD exacerbation Comment: severe with acute respiratory failure. cont solu Medrol and Ceftriaxone (last dose of Azithro was on ), no evidence of pneumonia, so far cont Xanax and morphine for air hunger,it appears to play a significant role in pt's bronchospasm Appreciate Dr. Porter's consult. Appreciate Dr. Love's imput. d/c'd hypertonic saline nebs due to pt's worsening bonchospasm with it. cont BIPAP during the day for increased WOB and Vapotherm (2) Symptomatic carotid artery stenosis Comment: h/o s/p left CEA in 02/2018 (3) Chronic urticaria Comment: cont thorazine prn (4) Hypertension Comment: lopressor stopped on 08/22/17 (may cause more bronchospasm), started clonidine on 08/22/17. cont Norvasc labile ranging from SBP 98 to 160's (5) Troponin I above reference range Comment: suspect demand ischemia. Denies CP. appreciate dr. Felix's consult. Stress test as outpatient Echo shows EF 55%, no significant valvular abn. EKG changes noted-likely demand ischemia from hypoxemia and WOB cont ASA/Brilinta (6) Lung nodule, multiple Comment: biggest at 0.7 cm , for outpatient f/u CT in 6 months, pt informed (7) DVT prophylaxis Comment: HSQ Status and Disposition: inpatient
[2017-08-25] MEDS: cefTRIAXone(*) 1 GM in NS 0.9% 50 ML* 50 ML IVPB SCH (09:46)
--- NOTE | 2017-08-25 11:03 | PN ---
Progress Note - Progress Note Date of Service: 08/25/17 Note: CRITICAL CARE MEDICINE Date: 08/25/17 Time: 1010 SUBJECTIVE: Patient seen and examined. feels better again PHYSICAL EXAM: Vital Signs: Reviewed. Neurologic: communicating well HEENT: pupils equal. Sclera anicteric. Trachea midline. Cardiovascular: S1 S2 Respiratory: much much better. excursion improved. end exp wheeze thats it. hfo2 Abdomen: Soft, nt. No r/g/r. Extremities: Warm. LABS: Reviewed. IMAGING: Reviewed. MEDICATIONS: Reviewed. ASSESSMENT: 66 F Acute resp failure needing bipap rescue, and improve with hfo2 as well probable viral bronchitis > bact copd exac she much better acting viral possible degree of TBM but exacerbated with bronchitis well with bipap needs; and use again tonight. Use HFO2 today at lower setting and then anticipate not using HFO2 at all tomorrow. pulm f/u rx possibly out of icu tomorrow Critical Care Time: 20min F. Navid Love,
[2017-08-26] MEDS: Albuterol/Ipratropium NEB.SOL* Albuterol 2.5 MG/Ipratropium 0.5 MG 3 ML INH SCH ×6 (03:28→23:09)
[2017-08-26] MEDS: methylPREDNISolone 125 MG* 2 ML VIAL IV SCH ×3 (06:08→22:41)
[2017-08-26] MEDS: Heparin VIAL(*) 5000 UNITS/ML VIAL (FIVE THOUSAND) SUBCUT SCH ×3 (06:08→22:41)
[2017-08-26] MEDS: Mometasone/Formoter 200/5 MDI INH SCH ×2 (07:30→19:26)
[2017-08-26] MEDS: Morphine VIAL* 4 MG/ML VIAL (1 ml vial) IV PRN ×4 (08:06→22:51)
[2017-08-26] MEDS: buPROPion SR TAB.SR* 150 MG PO SCH ×2 (08:08→19:47)
[2017-08-26] MEDS: Aspirin EC TAB* 81 MG TAB.EC PO SCH (08:08)
[2017-08-26] MEDS: Ticagrelor* 90 MG TAB PO SCH ×2 (08:08→19:47)
[2017-08-26] MEDS: Multivitamins/Minerals TAB PO SCH (08:08)
[2017-08-26] MEDS: Polyethylene Glycol 3350* 17 GM PACKET PO SCH (08:08)
[2017-08-26] MEDS: cloNIDine TAB* 0.1 MG PO SCH ×3 (08:08→19:47)
[2017-08-26] MEDS: amLODIPine TAB* 5 MG PO SCH (08:08)
--- NOTE | 2017-08-26 08:57 | PN ---
Subjective Date of Service: 08/26/17 Interval History: Pt is feeling ok this AM. About the same as the last couple days but definitely better than when she first presented to the hospital. She notes that any minimal movement still makes her feel like she is starved for air. She also states that anxiety is a huge component of her SOB and she asks how she can manage it at home. We talked about using xanax or morphine short term for severe air hunger may be an option. Objective Active Medications: Acetaminophen (Tylenol Tab*) 650 mg PO Q4H PRN PRN Reason: FEVER/PAIN Al Hydrox/Mg Hydrox/Simethicone (Maalox Plus*) 30 ml PO Q6H PRN PRN Reason: INDIGESTION Albuterol/Ipratropium (Duoneb (Albuterol 2.5 Mg/Ipratropium 0.5 Mg)) 1 neb INH Q2H PRN PRN Reason: SOB/WHEEZING Last Admin: 08/22/17 15:13 Dose: 1 neb Albuterol/Ipratropium (Duoneb (Albuterol 2.5 Mg/Ipratropium 0.5 Mg)) 1 neb INH [id number] AWAKE [facility] Last Admin: 08/26/17 07:28 Dose: 1 neb Alprazolam (Xanax Tab*) 0.25 mg PO TID PRN PRN Reason: AGITATION/ANXIETY Last Admin: 08/25/17 20:39 Dose: 0.25 mg Amlodipine Besylate (Norvasc Tab*) 10 mg PO DAILY [facility] Last Admin: 08/26/17 08:08 Dose: 10 mg Aspirin (Aspirin Ec Tab*) 81 mg PO DAILY [facility] Last Admin: 08/26/17 08:08 Dose: 81 mg Bupropion HCl (Wellbutrin Sr Tab*) 150 mg PO BID [facility] Last Admin: 08/26/17 08:08 Dose: 150 mg Clonidine HCl (Catapres Tab*) 0.1 mg PO TID [facility] Last Admin: 08/26/17 08:08 Dose: 0.1 mg Heparin Sodium (Porcine) (Heparin Vial(*)) 5,000 units SUBCUT Q8HR [facility] Last Admin: 08/26/17 06:08 Dose: 5,000 units Hydroxyzine HCl (Atarax Tab*) 25 mg PO Q6H PRN PRN Reason: itching Ceftriaxone Sodium 1 gm/ (Sodium Chloride) 50 mls @ 200 mls/hr IVPB Q24H [facility] Last Admin: 08/25/17 09:46 Dose: 200 mls/hr Magnesium Hydroxide (Milk Of Magnesia Liq*) 30 ml PO Q4H PRN PRN Reason: CONSTIPATION Methylprednisolone Sodium Succinate (Solu-Medrol 125mg *) 50 mg IV Q8H [facility] Last Admin: 08/26/17 06:08 Dose: 50 mg Mometasone Furoate/Formoterol Fumar (Dulera 200/5 Mdi*) 2 puff INH BID [facility] Last Admin: 08/26/17 07:30 Dose: 2 puff Morphine Sulfate (Morphine Vial*) 2 mg IV Q2H PRN PRN Reason: air hunger Last Admin: 08/26/17 08:06 Dose: 2 mg Multivitamins/Minerals (Theragran/Minerals Tab*) 1 tab PO DAILY [facility] Last Admin: 08/26/17 08:08 Dose: 1 tab Polyethylene Glycol/Electrolytes (Miralax*) 17 gm PO DAILY [facility] Last Admin: 08/26/17 08:08 Dose: 17 gm Ticagrelor (Brilinta*) 90 mg PO BID [facility] Last Admin: 08/26/17 08:08 Dose: 90 mg Vital Signs - 8 hr 08/26/17 08/26/17 08/26/17 01:00 01:01 02:00 Temperature Pulse Rate 89 90 83 Respiratory 11 12 14 Rate Blood Pressure 134/82 106/63 (mmHg) O2 Sat by Pulse 99 99 99 Oximetry 08/26/17 08/26/17 08/26/17 03:00 04:00 05:00 Temperature 98.5 F Pulse Rate 81 79 77 Respiratory 12 13 12 Rate Blood Pressure 123/87 99/63 (mmHg) O2 Sat by Pulse 98 99 99 Oximetry 08/26/17 08/26/17 08/26/17 05:01 06:00 06:01 Temperature Pulse Rate 79 96 95 Respiratory 17 17 17 Rate Blood Pressure 132/87 158/120 (mmHg) O2 Sat by Pulse 100 99 98 Oximetry 08/26/17 08/26/17 08/26/17 07:31 08:00 08:06 Temperature 97.2 F Pulse Rate 101 Respiratory 18 14 Rate Blood Pressure (mmHg) O2 Sat by Pulse 98 Oximetry Oxygen Devices in Use Now: High Flow Heated Nasal Cannula - 20L-40% FiO2-99-100 % O2 sat Appearance: Middle aged female sitting up in bed, eating breakfast, NAD Eyes: No Scleral Icterus Ears/Nose/Mouth/Throat: Mucous Membranes Moist Respiratory: Symmetrical Chest Expansion and Respiratory Effort, Clear to Auscultation - diminshed breath sounds in all lung solis but no wheezing noted Cardiovascular: NL Sounds; No Murmurs; No JVD, RRR, No Edema Abdominal: NL Sounds; No Tenderness; No Distention, - - large bruise on abdominal wall Extremities: No Clubbing, Cyanosis Skin: No Nodules or Sclerosis Neurological: Alert and Oriented x 3 Result Diagrams: 08/25/17 04:48 08/25/17 04:48 Additional Lab and Data: Lab Results 08/18/17 08/18/17 08/18/17 Range/Units 10:37 10:37 10:37 WBC 6.1 (3.5-10.8) 10^3/ul RBC 4.58 (4.0-5.4) 10^6/ul Hgb 15.0 (12.0-16.0) g/dl Hct 44 (35-47) % MCV 95 (80-97) fL MCH 33 H (27-31) pg MCHC 35 (31-36) g/dl RDW 14 (10.5-15) % Plt Count 177 (150-450) 10^3/ul MPV 7.7 (7.4-10.4) um3 Neut % (Auto) 73.6 (38-83) % Lymph % (Auto) 12.6 L (25-47) % [place] % (Auto) 10.1 H (0-7) % Eos % (Auto) 3.4 (0-6) % Baso % (Auto) 0.3 (0-2) % Absolute Neuts (auto) 4.5 (1.5-7.7) 10^3/ul Absolute Lymphs (auto) 0.8 L (1.0-4.8) 10^3/ul Absolute Monos (auto) 0.6 (0-0.8) 10^3/ul Absolute Eos (auto) 0.2 (0-0.6) 10^3/ul Absolute Basos (auto) 0 (0-0.2) 10^3/ul Absolute Nucleated RBC 0 10^3/ul Nucleated RBC % 0.1 INR (Anticoag Therapy) 0.86 (0.77-1.02) APTT 31.5 (26.0-36.3) seconds Sodium 132 L (139-145) mmol/L Potassium 3.6 (3.5-5.0) mmol/L Chloride 97 L (101-111) mmol/L Carbon Dioxide 23 (22-32) mmol/L Anion Gap 12 H (2-11) mmol/L BUN 7 (6-24) mg/dL Creatinine 0.80 (0.51-0.95) mg/dL Est GFR ( Amer) 92.3 (>60) Est GFR (Non-Af Amer) 71.8 (>60) BUN/Creatinine Ratio 8.8 (8-20) Glucose 92 (70-100) mg/dL Lactic Acid (0.5-2.0) mmol/L Calcium 9.2 (8.6-10.3) mg/dL Magnesium 1.9 (1.9-2.7) mg/dL Total Bilirubin 0.50 (0.2-1.0) mg/dL AST 37 (13-39) U/L ALT 20 (7-52) U/L Alkaline Phosphatase 84 (34-104) U/L Total Creatine Kinase 171 (10-223) U/L Troponin I 1.00 H* (<0.04) ng/mL C-Reactive Protein 8.19 H (< 5.00) mg/L B-Natriuretic Peptide ( - 100) pg/mL Total Protein 6.9 (6.4-8.9) g/dL Albumin 4.4 (3.2-5.2) g/dL Globulin 2.5 (2-4) g/dL Albumin/Globulin Ratio 1.8 (1-3) Lipase 22 (11.0-82.0) U/L 18 08/18/17 Range/Units 10:37 10:37 WBC (3.5-10.8) 10^3/ul RBC (4.0-5.4) 10^6/ul Hgb (12.0-16.0) g/dl Hct (35-47) % MCV (80-97) fL MCH (27-31) pg MCHC (31-36) g/dl RDW (10.5-15) % Plt Count (150-450) 10^3/ul MPV (7.4-10.4) um3 Neut % (Auto) (38-83) % Lymph % (Auto) (25-47) % [place] % (Auto) (0-7) % Eos % (Auto) (0-6) % Baso % (Auto) (0-2) % Absolute Neuts (auto) (1.5-7.7) 10^3/ul Absolute Lymphs (auto) (1.0-4.8) 10^3/ul Absolute Monos (auto) (0-0.8) 10^3/ul Absolute Eos (auto) (0-0.6) 10^3/ul Absolute Basos (auto) (0-0.2) 10^3/ul Absolute Nucleated RBC 10^3/ul Nucleated RBC % INR (Anticoag Therapy) (0.77-1.02) APTT (26.0-36.3) seconds Sodium (139-145) mmol/L Potassium (3.5-5.0) mmol/L Chloride (101-111) mmol/L Carbon Dioxide (22-32) mmol/L Anion Gap (2-11) mmol/L BUN (6-24) mg/dL Creatinine (0.51-0.95) mg/dL Est GFR ( Amer) (>60) Est GFR (Non-Af Amer) (>60) BUN/Creatinine Ratio (8-20) Glucose (70-100) mg/dL Lactic Acid 1.9 (0.5-2.0) mmol/L Calcium (8.6-10.3) mg/dL Magnesium (1.9-2.7) mg/dL Total Bilirubin (0.2-1.0) mg/dL AST (13-39) U/L ALT (7-52) U/L Alkaline Phosphatase (34-104) U/L Total Creatine Kinase (10-223) U/L Troponin I (<0.04) ng/mL C-Reactive Protein (< 5.00) mg/L B-Natriuretic Peptide 67 ( - 100) pg/mL Total Protein (6.4-8.9) g/dL Albumin (3.2-5.2) g/dL Globulin (2-4) g/dL Albumin/Globulin Ratio (1-3) Lipase (11.0-82.0) U/L Microbiology and Other Data: Microbiology 08/21/17 22:40 Nasal Screen MRSA (PCR)([facility]) - Final Nasal Mrsa Not Detected Assess/Plan/Problems-Billing Ms Sanders is a 66 yo F with a h/o non-obstructive CAD (cath in 1999 showed no significant blockages) and COPD (current smoker approx 1 ppd ) who presents with COPD exacerbation and elevated troponin. - Patient Problems (1) COPD exacerbation Current Visit: Yes Status: Acute Code(s): J44.1 - CHRONIC OBSTRUCTIVE PULMONARY DISEASE W (ACUTE) EXACERBATION SNOMED Code(s): 762360230 Comment: The patient continues to very slowly recover from a severe COPD exacerbation. She has been improving but still feels she needs BiPAP and vapotherm (I suspect much of her "need" to use the vapotherm and BiPAP is secondary to the patient's anxiety and she feels as if they are safety blankets) . Will continue solumedrol at current dose (perhaps start very slow taper tomorrow), standing duonebs, prn morphine/xanax. Stop ceftriaxone as she has completed 7 days of therapy (already completed azithromycin)-never any signs of pneumonia. She can likely come off the vapotherm today. Will likely move from ICU to floor tomorrow. She is feeling discouraged but I reassured her it will just take some more time to continue to improve. (2) Troponin I above reference range Current Visit: Yes Status: Acute Code(s): R74.8 - ABNORMAL LEVELS OF OTHER SERUM ENZYMES SNOMED Code(s): 144890169 Comment: Type II ME/demand ischemia. She could benefit from outpatient stress test once her respiratory issues have completely resolved. For now continue ASA and brilinta. (3) Lung nodule, multiple Current Visit: Yes Status: Acute Code(s): R91.8 - OTHER NONSPECIFIC ABNORMAL FINDING OF LUNG FIELD SNOMED Code(s): 950812124 Comment: Pt will need outpatient CT follow up in 6 months. Perhaps the patient can follow with Dr. Porter as an outpatient. (4) Hypertension Current Visit: Yes Status: Chronic Code(s): I10 - ESSENTIAL (PRIMARY) HYPERTENSION SNOMED Code(s): 72996508 Comment: BP is generally under fair control. Continue norvasc and clonidine. Metoprolol d/sania secondary to possibly worsening bronchospasm. (5) DVT prophylaxis Current Visit: Yes Status: Acute Code(s): RCZ7650 - SNOMED Code(s): 517083594 Comment: SQ heparin (6) Full code status Current Visit: Yes Status: Acute Code(s): Z78.9 - OTHER SPECIFIED HEALTH STATUS SNOMED Code(s): 117964051 Status and Disposition: .
[2017-08-26] MEDS: ALPRAZolam TAB* 0.25 MG PO PRN (10:22)
--- NOTE | 2017-08-26 17:24 | PN ---
Progress Note - Progress Note Date of Service: 08/26/17 - Pulm f/u note Note: Pt seen and examined at bedside. Pt remains on BiPAP. Reprots anxiety, meds are helpful however not completely relieved with anxiety. BiPAP is helpful with anxiety sx. Cough is intermittent. Active Medications Generic Name Dose Route Start Last Admin Trade Name Freq PRN Reason Stop Dose Admin Acetaminophen 650 mg 08/18/17 13:21 Tylenol Tab* PO Q4H PRN FEVER/PAIN Al Hydrox/Mg Hydrox/Simethicone 30 ml 08/18/17 13:21 Maalox Plus* PO Q6H PRN INDIGESTION Albuterol/Ipratropium 1 neb 08/21/17 09:02 08/22/17 15:13 Duoneb (Albuterol 2.5 Mg/Ipratropium 0.5 Mg) INH 1 neb Q2H PRN Administration SOB/WHEEZING Albuterol/Ipratropium 1 neb 08/23/17 23:00 08/26/17 15:17 Duoneb (Albuterol 2.5 Mg/Ipratropium 0.5 Mg) INH 1 neb [id number] AWAKE NATE Administration Alprazolam 0.25 mg 08/20/17 02:53 08/26/17 10:22 Xanax Tab* PO 0.25 mg TID PRN Administration AGITATION/ANXIETY Amlodipine Besylate 10 mg 08/23/17 09:00 08/26/17 08:08 Norvasc Tab* PO 10 mg DAILY NATE Administration Aspirin 81 mg 08/19/17 09:00 08/26/17 08:08 Aspirin Ec Tab* PO 81 mg DAILY NATE Administration Bupropion HCl 150 mg 08/18/17 21:00 08/26/17 08:08 Wellbutrin Sr Tab* PO 150 mg BID NATE Administration Clonidine HCl 0.1 mg 08/22/17 14:00 08/26/17 13:38 Catapres Tab* PO 0.1 mg TID NATE Administration Heparin Sodium (Porcine) 5,000 units 08/19/17 14:00 08/26/17 13:36 Heparin Vial(*) SUBCUT 5,000 units Q8HR NATE Administration Hydroxyzine HCl 25 mg 08/19/17 10:17 Atarax Tab* PO Q6H PRN itching Magnesium Hydroxide 30 ml 08/24/17 08:25 Milk Of Td Liq* PO Q4H PRN CONSTIPATION Methylprednisolone Sodium Succinate 50 mg 08/21/17 06:00 08/26/17 13:35 Solu-Medrol 125mg * IV 50 mg Q8H NATE Administration Mometasone Furoate/Formoterol Fumar 2 puff 08/18/17 21:00 08/26/17 07:30 Dulera 200/5 Mdi* INH 2 puff BID NATE Administration Morphine Sulfate 2 mg 08/22/17 11:59 08/26/17 13:43 Morphine Vial* IV 2 mg Q2H PRN Administration air hunger Multivitamins/Minerals 1 tab 08/19/17 09:00 08/26/17 08:08 Theragran/Minerals Tab* PO 1 tab DAILY NATE Administration Polyethylene Glycol/Electrolytes 17 gm 08/24/17 09:00 08/26/17 08:08 Miralax* PO 17 gm DAILY [facility]ATE Administration Ticagrelor 90 mg 08/18/17 21:00 08/26/17 08:08 Brilinta* PO 90 mg BID NATE Administration Vital Signs Temp Pulse Resp BP Pulse Ox 97.8 F 107 20 140/77 100 08/26/17 15:26 08/26/17 15:19 08/26/17 15:26 08/26/17 15:00 08/26/17 15:19 O/E; Pt in NAD, lying in bed with BiPAP HEENT: PERRLA, BiPAP mask in place, no accessory muscle usage Lungs: Diminished air entry b/l, prolonged expiratory phase, wheeze present, slightly improved CVS: s1, S2+, regular Abd: Soft, BS+ Et: Normal ROM Neuro: No focal defecits Labs: No new labs I/R: 66 y o f with signficant smoking history, current smoker a/w worsening SOB after viral bronchitis with acute COPD exacerbation Pt is improving on NIPPV Work of breathing is improving Anxiety seems to be signficant component Might benefit from increase of anxiety meds C/w nebs, hypertonic saline, meta nebs c/w BiPAP at night c/w solumedrol taper
[2017-08-26] MEDS: ALPRAZolam TAB* 0.5 MG PO PRN (19:47)
[2017-08-27] MEDS: Morphine VIAL* 4 MG/ML VIAL (1 ml vial) IV PRN ×5 (02:28→22:39)
[2017-08-27] MEDS: Albuterol/Ipratropium NEB.SOL* Albuterol 2.5 MG/Ipratropium 0.5 MG 3 ML INH SCH ×6 (03:33→23:53)
[2017-08-27] MEDS: methylPREDNISolone 125 MG* 2 ML VIAL IV SCH ×3 (06:03→22:39)
[2017-08-27] MEDS: Heparin VIAL(*) 5000 UNITS/ML VIAL (FIVE THOUSAND) SUBCUT SCH ×2 (06:12→15:17)
[2017-08-27] MEDS: Mometasone/Formoter 200/5 MDI INH SCH ×2 (08:58→19:11)
[2017-08-27] MEDS: Polyethylene Glycol 3350* 17 GM PACKET PO SCH (09:10)
[2017-08-27] MEDS: Multivitamins/Minerals TAB PO SCH (09:11)
[2017-08-27] MEDS: cloNIDine TAB* 0.1 MG PO SCH ×3 (09:11→20:26)
[2017-08-27] MEDS: ALPRAZolam TAB* 0.5 MG PO PRN ×3 (09:11→22:39)
[2017-08-27] MEDS: amLODIPine TAB* 5 MG PO SCH (09:11)
[2017-08-27] MEDS: buPROPion SR TAB.SR* 150 MG PO SCH ×2 (09:11→20:26)
[2017-08-27] MEDS: Aspirin EC TAB* 81 MG TAB.EC PO SCH (09:11)
[2017-08-27] MEDS: Ticagrelor* 90 MG TAB PO SCH ×2 (09:11→20:26)
--- NOTE | 2017-08-27 12:32 | PN ---
Progress Note - Progress Note Date of Service: 08/27/17 Note: CRITICAL CARE MEDICINE Date: 08/27/17 Time: 1215 SUBJECTIVE: Patient seen and examined. feels ok inc cough and sputum PHYSICAL EXAM: Vital Signs: Reviewed. Neurologic: communicating well HEENT: pupils equal. Sclera anicteric. Trachea midline. Cardiovascular: S1 S2 Respiratory: excursion ok. deep. diffuse exp wheeze again. hfo2 Abdomen: Soft, nt. No r/g/r. Extremities: Warm. LABS: Reviewed. IMAGING: Reviewed. MEDICATIONS: Reviewed. ASSESSMENT: 66 F Acute resp failure needing bipap rescue, and improve with hfo2 as well probable viral bronchitis copd exac handling but lingering course try metaneb today and otherwise try to remain off bipap and use only nocturnal to start getting a chronic regimen. Steroid taper. Check sputum to ensure no abundant maritza or other non- virulence interfering with recovery phase slow going Critical Care Time: 20min Troy Love, DO
--- NOTE | 2017-08-27 14:19 | PN ---
Subjective Date of Service: 08/27/17 Interval History: Pt is feeling about the same. Yesterday she needed rescue BiPAP for much of the day-today less BiPAP requirements. She still feels very anxious however when she moves at all. Once she tries to move she feels she needs BiPAP to rescue. No significant cough yet though when she does cough it is loose. Objective Active Medications: Acetaminophen (Tylenol Tab*) 650 mg PO Q4H PRN PRN Reason: FEVER/PAIN Al Hydrox/Mg Hydrox/Simethicone (Maalox Plus*) 30 ml PO Q6H PRN PRN Reason: INDIGESTION Albuterol/Ipratropium (Duoneb (Albuterol 2.5 Mg/Ipratropium 0.5 Mg)) 1 neb INH Q2H PRN PRN Reason: SOB/WHEEZING Last Admin: 08/22/17 15:13 Dose: 1 neb Albuterol/Ipratropium (Duoneb (Albuterol 2.5 Mg/Ipratropium 0.5 Mg)) 1 neb INH [id number] AWAKE [facility] [place] Last Admin: 08/27/17 11:24 Dose: 1 neb Alprazolam (Xanax Tab*) 0.5 mg PO TID PRN PRN Reason: AGITATION/ANXIETY Last Admin: 08/27/17 09:11 Dose: 0.5 mg Amlodipine Besylate (Norvasc Tab*) 10 mg PO DAILY [facility] Last Admin: 08/27/17 09:11 Dose: 10 mg Aspirin (Aspirin Ec Tab*) 81 mg PO DAILY [facility] [place] Last Admin: 08/27/17 09:11 Dose: 81 mg Bupropion HCl (Wellbutrin Sr Tab*) 150 mg PO BID [facility] [place] Last Admin: 08/27/17 09:11 Dose: 150 mg Clonidine HCl (Catapres Tab*) 0.1 mg PO TID [facility] Last Admin: 08/27/17 09:11 Dose: 0.1 mg Heparin Sodium (Porcine) (Heparin Vial(*)) 5,000 units SUBCUT Q8HR [facility] [place] Last Admin: 08/27/17 06:12 Dose: 5,000 units Hydroxyzine HCl (Atarax Tab*) 25 mg PO Q6H PRN PRN Reason: itching Magnesium Hydroxide (Milk Of Magnesia Liq*) 30 ml PO Q4H PRN PRN Reason: CONSTIPATION Methylprednisolone Sodium Succinate (Solu-Medrol 125mg *) 50 mg IV Q8H [facility] Last Admin: 08/27/17 06:03 Dose: 50 mg Mometasone Furoate/Formoterol Fumar (Dulera 200/5 Mdi*) 2 puff INH BID [facility] [place] Last Admin: 08/27/17 08:58 Dose: 2 puff Morphine Sulfate (Morphine Vial*) 2 mg IV Q2H PRN PRN Reason: air hunger Last Admin: 08/27/17 13:42 Dose: 2 mg Multivitamins/Minerals (Theragran/Minerals Tab*) 1 tab PO DAILY [facility] Last Admin: 08/27/17 09:11 Dose: 1 tab Polyethylene Glycol/Electrolytes (Miralax*) 17 gm PO DAILY [facility] Last Admin: 08/27/17 09:10 Dose: 17 gm Ticagrelor (Brilinta*) 90 mg PO BID [facility] [place] Last Admin: 08/27/17 09:11 Dose: 90 mg Vital Signs - 8 hr 08/27/17 08/27/17 08/27/17 06:16 07:00 07:35 Temperature 97.4 F Pulse Rate 90 Respiratory 16 18 Rate Blood Pressure 147/105 (mmHg) O2 Sat by Pulse 98 Oximetry 08/27/17 08/27/17 08/27/17 07:44 08:00 08:01 Temperature Pulse Rate 92 96 100 Respiratory 17 15 16 Rate Blood Pressure 124/84 (mmHg) O2 Sat by Pulse 99 97 96 Oximetry 08/27/17 08/27/17 08/27/17 08:54 08:59 09:00 Temperature Pulse Rate 124 120 Respiratory 20 15 17 Rate Blood Pressure (mmHg) O2 Sat by Pulse 97 96 Oximetry 08/27/17 08/27/17 08/27/17 09:11 10:00 10:01 Temperature Pulse Rate 105 102 Respiratory 20 18 17 Rate Blood Pressure 106/94 (mmHg) O2 Sat by Pulse 97 95 Oximetry 08/27/17 08/27/17 08/27/17 11:00 11:31 12:00 Temperature 97.3 F Pulse Rate 92 101 100 Respiratory 15 18 16 Rate Blood Pressure 105/80 (mmHg) O2 Sat by Pulse 99 100 99 Oximetry 08/27/17 08/27/17 08/27/17 12:01 12:09 13:00 Temperature Pulse Rate 102 101 100 Respiratory 21 11 20 Rate Blood Pressure 136/88 132/77 (mmHg) O2 Sat by Pulse 100 100 99 Oximetry 08/27/17 13:42 Temperature Pulse Rate Respiratory 20 Rate Blood Pressure (mmHg) O2 Sat by Pulse Oximetry Oxygen Devices in Use Now: High Flow Heated Nasal Cannula - 35% FiO2, 20L Appearance: Middle aged female sitting up in chair, NAD Eyes: No Scleral Icterus Ears/Nose/Mouth/Throat: Mucous Membranes Moist Respiratory: Symmetrical Chest Expansion and Respiratory Effort, Clear to Auscultation Cardiovascular: NL Sounds; No Murmurs; No JVD, RRR, No Edema Abdominal: NL Sounds; No Tenderness; No Distention Extremities: No Clubbing, Cyanosis Skin: No Nodules or Sclerosis Neurological: Alert and Oriented x 3 Result Diagrams: 08/25/17 04:48 08/25/17 04:48 Additional Lab and Data: Lab Results 08/18/17 08/18/17 08/18/17 Range/Units 10:37 10:37 10:37 WBC 6.1 (3.5-10.8) 10^3/ul RBC 4.58 (4.0-5.4) 10^6/ul Hgb 15.0 (12.0-16.0) g/dl Hct 44 (35-47) % MCV 95 (80-97) fL MCH 33 H (27-31) pg MCHC 35 (31-36) g/dl RDW 14 (10.5-15) % Plt Count 177 (150-450) 10^3/ul MPV 7.7 (7.4-10.4) um3 Neut % (Auto) 73.6 (38-83) % Lymph % (Auto) 12.6 L (25-47) % [place] % (Auto) 10.1 H (0-7) % Eos % (Auto) 3.4 (0-6) % Baso % (Auto) 0.3 (0-2) % Absolute Neuts (auto) 4.5 (1.5-7.7) 10^3/ul Absolute Lymphs (auto) 0.8 L (1.0-4.8) 10^3/ul Absolute Monos (auto) 0.6 (0-0.8) 10^3/ul Absolute Eos (auto) 0.2 (0-0.6) 10^3/ul Absolute Basos (auto) 0 (0-0.2) 10^3/ul Absolute Nucleated RBC 0 10^3/ul Nucleated RBC % 0.1 INR (Anticoag Therapy) 0.86 (0.77-1.02) APTT 31.5 (26.0-36.3) seconds Sodium 132 L (139-145) mmol/L Potassium 3.6 (3.5-5.0) mmol/L Chloride 97 L (101-111) mmol/L Carbon Dioxide 23 (22-32) mmol/L Anion Gap 12 H (2-11) mmol/L BUN 7 (6-24) mg/dL Creatinine 0.80 (0.51-0.95) mg/dL Est GFR ( Amer) 92.3 (>60) Est GFR (Non-Af Amer) 71.8 (>60) BUN/Creatinine Ratio 8.8 (8-20) Glucose 92 (70-100) mg/dL Lactic Acid (0.5-2.0) mmol/L Calcium 9.2 (8.6-10.3) mg/dL Magnesium 1.9 (1.9-2.7) mg/dL Total Bilirubin 0.50 (0.2-1.0) mg/dL AST 37 (13-39) U/L ALT 20 (7-52) U/L Alkaline Phosphatase 84 (34-104) U/L Total Creatine Kinase 171 (10-223) U/L Troponin I 1.00 H* (<0.04) ng/mL C-Reactive Protein 8.19 H (< 5.00) mg/L B-Natriuretic Peptide ( - 100) pg/mL Total Protein 6.9 (6.4-8.9) g/dL Albumin 4.4 (3.2-5.2) g/dL Globulin 2.5 (2-4) g/dL Albumin/Globulin Ratio 1.8 (1-3) Lipase 22 (11.0-82.0) U/L 18 08/18/17 Range/Units 10:37 10:37 WBC (3.5-10.8) 10^3/ul RBC (4.0-5.4) 10^6/ul Hgb (12.0-16.0) g/dl Hct (35-47) % MCV (80-97) fL MCH (27-31) pg MCHC (31-36) g/dl RDW (10.5-15) % Plt Count (150-450) 10^3/ul MPV (7.4-10.4) um3 Neut % (Auto) (38-83) % Lymph % (Auto) (25-47) % [place] % (Auto) (0-7) % Eos % (Auto) (0-6) % Baso % (Auto) (0-2) % Absolute Neuts (auto) (1.5-7.7) 10^3/ul Absolute Lymphs (auto) (1.0-4.8) 10^3/ul Absolute Monos (auto) (0-0.8) 10^3/ul Absolute Eos (auto) (0-0.6) 10^3/ul Absolute Basos (auto) (0-0.2) 10^3/ul Absolute Nucleated RBC 10^3/ul Nucleated RBC % INR (Anticoag Therapy) (0.77-1.02) APTT (26.0-36.3) seconds Sodium (139-145) mmol/L Potassium (3.5-5.0) mmol/L Chloride (101-111) mmol/L Carbon Dioxide (22-32) mmol/L Anion Gap (2-11) mmol/L BUN (6-24) mg/dL Creatinine (0.51-0.95) mg/dL Est GFR ( Amer) (>60) Est GFR (Non-Af Amer) (>60) BUN/Creatinine Ratio (8-20) Glucose (70-100) mg/dL Lactic Acid 1.9 (0.5-2.0) mmol/L Calcium (8.6-10.3) mg/dL Magnesium (1.9-2.7) mg/dL Total Bilirubin (0.2-1.0) mg/dL AST (13-39) U/L ALT (7-52) U/L Alkaline Phosphatase (34-104) U/L Total Creatine Kinase (10-223) U/L Troponin I (<0.04) ng/mL C-Reactive Protein (< 5.00) mg/L B-Natriuretic Peptide 67 ( - 100) pg/mL Total Protein (6.4-8.9) g/dL Albumin (3.2-5.2) g/dL Globulin (2-4) g/dL Albumin/Globulin Ratio (1-3) Lipase (11.0-82.0) U/L Microbiology and Other Data: Microbiology 08/21/17 22:40 Nasal Screen MRSA (PCR)([facility]) - Final Nasal Mrsa Not Detected Assess/Plan/Problems-Billing Ms Sanders is a 66 yo F with a h/o non-obstructive CAD (cath in 1999 showed no significant blockages) and COPD (current smoker approx 1 ppd ) who presents with COPD exacerbation and elevated troponin. - Patient Problems (1) COPD exacerbation Current Visit: Yes Status: Acute Code(s): J44.1 - CHRONIC OBSTRUCTIVE PULMONARY DISEASE W (ACUTE) EXACERBATION SNOMED Code(s): 539008201 Comment: The patient continues to very slowly recover from a severe COPD exacerbation likely secondary to viral bronchitis. Per Dr. Love will check sputum culture to r/o fungal cause of slow recovery. She has been improving but still feels she needs BiPAP and vapotherm-will get pt off vapotherm tomorrow if she remains stable. Utilize BiPAP only at night if possible. Change to prednsione starting tomorrow AM, continue standing duonebs, prn morphine/xanax. Will move from ICU to floor tomorrow. She is feeling discouraged but I reassured her it will just take some more time to continue to improve. (2) Troponin I above reference range Current Visit: Yes Status: Acute Code(s): R74.8 - ABNORMAL LEVELS OF OTHER SERUM ENZYMES SNOMED Code(s): 393111858 Comment: Type II DC/demand ischemia. She could benefit from outpatient stress test once her respiratory issues have completely resolved. For now continue ASA and brilinta. (3) Lung nodule, multiple Current Visit: Yes Status: Acute Code(s): R91.8 - OTHER NONSPECIFIC ABNORMAL FINDING OF LUNG FIELD SNOMED Code(s): 565218147 Comment: Pt will need outpatient CT follow up in 6 months. Perhaps the patient can follow with Dr. Porter as an outpatient. (4) Hypertension Current Visit: Yes Status: Chronic Code(s): I10 - ESSENTIAL (PRIMARY) HYPERTENSION SNOMED Code(s): 59561036 Comment: BP is generally under fair control. Continue norvasc and clonidine. Metoprolol d/sania secondary to possibly worsening bronchospasm. (5) DVT prophylaxis Current Visit: Yes Status: Acute Code(s): UJF3027 - SNOMED Code(s): 769628796 Comment: SQ heparin (6) Full code status Current Visit: Yes Status: Acute Code(s): Z78.9 - OTHER SPECIFIED HEALTH STATUS SNOMED Code(s): 461941082 Status and Disposition: .
[2017-08-27] MEDS ORDERED: Furosemide IV* 10 MG/ML 2 ML VIAL (20 MG) IV ONE (16:17)
--- NOTE | 2017-08-27 16:17 | PN ---
Progress Note - Progress Note Date of Service: 08/27/17 - Pulm f/u note Note: Pt seen and examined at bedside. Pt reports slight improvement in breathing. Feels mucus is breaking loose. Active Medications Generic Name Dose Route Start Last Admin Trade Name Freq PRN Reason Stop Dose Admin Acetaminophen 650 mg 08/18/17 13:21 Tylenol Tab* PO Q4H PRN FEVER/PAIN Al Hydrox/Mg Hydrox/Simethicone 30 ml 08/18/17 13:21 Maalox Plus* PO Q6H PRN INDIGESTION Albuterol/Ipratropium 1 neb 08/21/17 09:02 08/22/17 15:13 Duoneb (Albuterol 2.5 Mg/Ipratropium 0.5 Mg) INH 1 neb Q2H PRN Administration SOB/WHEEZING Albuterol/Ipratropium 1 neb 08/23/17 23:00 08/27/17 14:59 Duoneb (Albuterol 2.5 Mg/Ipratropium 0.5 Mg) INH 1 neb [id number] AWAKE NATE Administration Alprazolam 0.5 mg 08/26/17 17:25 08/27/17 15:32 Xanax Tab* PO 0.5 mg TID PRN Administration AGITATION/ANXIETY Amlodipine Besylate 10 mg 08/23/17 09:00 08/27/17 09:11 Norvasc Tab* PO 10 mg DAILY NATE Administration Aspirin 81 mg 08/19/17 09:00 08/27/17 09:11 Aspirin Ec Tab* PO 81 mg DAILY NATE Administration Bupropion HCl 150 mg 08/18/17 21:00 08/27/17 09:11 Wellbutrin Sr Tab* PO 150 mg BID NATE Administration Clonidine HCl 0.1 mg 08/22/17 14:00 08/27/17 15:18 Catapres Tab* PO 0.1 mg TID NATE Administration Heparin Sodium (Porcine) 5,000 units 08/19/17 14:00 08/27/17 15:17 Heparin Vial(*) SUBCUT 5,000 units Q8HR NATE Administration Hydroxyzine HCl 25 mg 08/19/17 10:17 Atarax Tab* PO Q6H PRN itching Magnesium Hydroxide 30 ml 08/24/17 08:25 Milk Of Magnesia Liq* PO Q4H PRN CONSTIPATION Methylprednisolone Sodium Succinate 50 mg 08/21/17 06:00 08/27/17 15:18 Solu-Medrol 125mg * IV 08/27/17 23:59 50 mg Q8H NATE Administration Mometasone Furoate/Formoterol Fumar 2 puff 08/18/17 21:00 08/27/17 08:58 Dulera 200/5 Mdi* INH 2 puff BID NATE Administration Morphine Sulfate 2 mg 08/22/17 11:59 08/27/17 13:42 Morphine Vial* IV 2 mg Q2H PRN Administration air hunger Multivitamins/Minerals 1 tab 08/19/17 09:00 08/27/17 09:11 Theragran/Minerals Tab* PO 1 tab DAILY NATE Administration Polyethylene Glycol/Electrolytes 17 gm 08/24/17 09:00 08/27/17 09:10 Miralax* PO 17 gm DAILY NATE Administration Prednisone 60 mg 08/28/17 09:00 Deltasone Tab* PO DAILY NATE Ticagrelor 90 mg 08/18/17 21:00 08/27/17 09:11 Brilinta* PO 90 mg BID NATE Administration Vital Signs Temp Pulse Resp BP Pulse Ox 97.3 F 102 20 117/76 100 08/27/17 12:00 08/27/17 15:05 08/27/17 15:50 08/27/17 15:01 08/27/17 15:05 O/E; Pt in NAD, sitting in bed, high flow O2 in place HEENT: PERRLA, no accessory muscle usage Lungs: Diminished air entry b/l, prolonged expiratory phase, wheeze present, slightly improved air entry CVS: s1, S2+, regular, no murmer Abd: Soft, BS+, NT Et: Normal ROM, no edema Neuro: No focal deficits Labs: No new labs I/R: 66 y o f with signficant smoking history, current smoker a/w worsening SOB after viral bronchitis with acute COPD exacerbation Pt is improving, albeit slowly NIPPV helpful per pt Work of breathing is improving Anxiety seems to be significant component, meds increase Pts daughter requesting psych consult C/w nebs, meta nebs, wean off high flow c/w BiPAP at night c/w prednisone taper Anticipate need for home care, BiPAP and O2 upon d/c Discussed in detail with pts daughter, all concerns addressed
[2017-08-27] MEDS: guaiFENesin ER TAB 600 MG PO SCH (20:26)
--- NOTE | 2017-08-27 21:25 | PN ---
Progress Note - Progress Note Date of Service: 08/27/17 Note: D/C SQ heparin - patient with significant ecchymosis over abdomen. Will order SCDs.
[2017-08-28] MEDS: Morphine VIAL* 4 MG/ML VIAL (1 ml vial) IV PRN ×6 (01:03→20:59)
[2017-08-28] MEDS: Albuterol/Ipratropium NEB.SOL* Albuterol 2.5 MG/Ipratropium 0.5 MG 3 ML INH SCH ×6 (03:42→23:15)
[2017-08-28] MEDS: ALPRAZolam TAB* 0.5 MG PO PRN ×2 (06:00→18:47)
[2017-08-28 06:04] LABS: Hematocrit 37 % (35-47); Hemoglobin 12.4 g/dl (12.0-16.0); Mean Corpuscular HGB Conc 34 g/dl (31-36); Mean Corpuscular Hemoglobin 33 pg (27-31); Mean Corpuscular Volume 98 fL (80-97); Mean Platelet Volume 7.8 um3 (7.4-10.4); Platelet Count 217 10^3/ul (150-450); Red Blood Count 3.73 10^6/ul (4.00-5.40); Red Cell Distribution Width 15 % (10.5-15); White Blood Count 13.2 10^3/ul (3.5-10.8)
[2017-08-28 06:22] LABS: EGFR Non-African American 83.7 (>60)
[2017-08-28] MEDS: Mometasone/Formoter 200/5 MDI INH SCH ×2 (07:22→19:10)
[2017-08-28] MEDS: cloNIDine TAB* 0.1 MG PO SCH ×3 (08:07→20:56)
[2017-08-28] MEDS: Polyethylene Glycol 3350* 17 GM PACKET PO SCH (08:26)
[2017-08-28] MEDS: guaiFENesin ER TAB 600 MG PO SCH ×2 (08:27→20:56)
[2017-08-28] MEDS: Multivitamins/Minerals TAB PO SCH (08:27)
[2017-08-28] MEDS: amLODIPine TAB* 5 MG PO SCH (08:27)
[2017-08-28] MEDS: buPROPion SR TAB.SR* 150 MG PO SCH ×2 (08:27→20:56)
[2017-08-28] MEDS: predniSONE TAB* 20 MG PO SCH (08:27)
[2017-08-28] MEDS: Ticagrelor* 90 MG TAB PO SCH ×2 (08:27→20:56)
[2017-08-28] MEDS: Aspirin EC TAB* 81 MG TAB.EC PO SCH (08:28)
--- NOTE | 2017-08-28 14:57 | PN ---
Progress Note - Progress Note Date of Service: 08/28/17 - Pulm f/u note Note: Pt seen and examined at bedside, Pt reprots feeling much better, still having anxiety about SOB with movement. Cough is improved Active Medications Generic Name Dose Route Start Last Admin Trade Name Freq PRN Reason Stop Dose Admin Acetaminophen 650 mg 08/18/17 13:21 Tylenol Tab* PO Q4H PRN FEVER/PAIN Al Hydrox/Mg Hydrox/Simethicone 30 ml 08/18/17 13:21 Maalox Plus* PO Q6H PRN INDIGESTION Albuterol/Ipratropium 1 neb 08/21/17 09:02 08/22/17 15:13 Duoneb (Albuterol 2.5 Mg/Ipratropium 0.5 Mg) INH 1 neb Q2H PRN Administration SOB/WHEEZING Albuterol/Ipratropium 1 neb 08/23/17 23:00 08/28/17 14:18 Duoneb (Albuterol 2.5 Mg/Ipratropium 0.5 Mg) INH 1 neb [id number] AWAKE NATE Administration Alprazolam 0.5 mg 08/26/17 17:25 08/28/17 06:00 Xanax Tab* PO 0.5 mg TID PRN Administration AGITATION/ANXIETY Amlodipine Besylate 10 mg 08/23/17 09:00 08/28/17 08:27 Norvasc Tab* PO 10 mg DAILY NATE Administration Aspirin 81 mg 08/19/17 09:00 08/28/17 08:28 Aspirin Ec Tab* PO 81 mg DAILY NATE Administration Bupropion HCl 150 mg 08/18/17 21:00 08/28/17 08:27 Wellbutrin Sr Tab* PO 150 mg BID NATE Administration Clonidine HCl 0.1 mg 08/22/17 14:00 08/28/17 13:50 Catapres Tab* PO Not Given TID NATE Guaifenesin 600 mg 08/27/17 21:00 08/28/17 08:27 Mucinex* PO 600 mg BID NATE Administration Hydroxyzine HCl 25 mg 08/19/17 10:17 Atarax Tab* PO Q6H PRN itching Magnesium Hydroxide 30 ml 08/24/17 08:25 Milk Of Magnesia Liq* PO Q4H PRN CONSTIPATION Mometasone Furoate/Formoterol Fumar 2 puff 08/18/17 21:00 08/28/17 07:22 Dulera 200/5 Mdi* INH 2 puff BID NATE Administration Morphine Sulfate 2 mg 08/22/17 11:59 08/28/17 14:34 Morphine Vial* IV 2 mg Q2H PRN Administration air hunger Multivitamins/Minerals 1 tab 08/19/17 09:00 08/28/17 08:27 Theragran/Minerals Tab* PO 1 tab DAILY NATE Administration Polyethylene Glycol/Electrolytes 17 gm 08/24/17 09:00 08/28/17 08:26 Miralax* PO 17 gm DAILY NATE Administration Prednisone 60 mg 08/28/17 09:00 08/28/17 08:27 Deltasone Tab* PO 60 mg DAILY NATE Administration Ticagrelor 90 mg 08/18/17 21:00 08/28/17 08:27 Brilinta* PO 90 mg BID NATE Administration Vital Signs Temp Pulse Resp BP Pulse Ox 97.4 F 105 15 125/73 100 08/28/17 09:19 08/28/17 13:00 08/28/17 14:34 08/28/17 13:00 08/28/17 13:00 O/E; Pt in NAD, sitting in bed, high flow O2 in place HEENT: PERRLA, no accessory muscle usage Lungs: Diminished air entry b/l, prolonged expiratory phase, wheeze present, slightly improved air entry CVS: s1, S2+, regular, no murmer Abd: Soft, BS+, NT Et: Normal ROM, no edema Neuro: No focal deficits Laboratory Results - last 24 hr 08/28/17 08/28/17 05:55 05:55 WBC 13.2 H RBC 3.73 L Hgb 12.4 Hct 37 MCV 98 H MCH 33 H MCHC 34 RDW 15 Plt Count 217 MPV 7.8 Sodium 133 L Potassium 4.2 Chloride 96 L Carbon Dioxide 33 H Anion Gap 4 BUN 20 Creatinine 0.70 Est GFR ( Amer) 107.7 Est GFR (Non-Af Amer) 83.7 BUN/Creatinine Ratio 28.6 H Glucose 160 H Calcium 9.7 I/R: 66 y o f with signficant smoking history, current smoker a/w worsening SOB after viral bronchitis with acute COPD exacerbation Pt feeling much better today Has been off BiPAP during daytime Is still on high flow Clinically improved c/w NIPPV at night Will try to wean off high flow today Anxiety seems to be significant component, meds increase Pts daughter requesting psych consult C/w nebs, meta nebs, wean off high flow c/w prednisone taper Anticipate need for home care, BiPAP and O2 upon d/c OOB to chair and ambulate as tolerate
--- NOTE | 2017-08-28 18:05 | PN ---
Subjective Date of Service: 08/28/17 Interval History: Pt is feeling better today than yesterday. She has not needed BiPAP at all today. She is very worried about coming off the vapotherm as she feels better on the vapotherm. Objective Active Medications: Acetaminophen (Tylenol Tab*) 650 mg PO Q4H PRN PRN Reason: FEVER/PAIN Al Hydrox/Mg Hydrox/Simethicone (Maalox Plus*) 30 ml PO Q6H PRN PRN Reason: INDIGESTION Albuterol/Ipratropium (Duoneb (Albuterol 2.5 Mg/Ipratropium 0.5 Mg)) 1 neb INH Q2H PRN PRN Reason: SOB/WHEEZING Last Admin: 08/22/17 15:13 Dose: 1 neb Albuterol/Ipratropium (Duoneb (Albuterol 2.5 Mg/Ipratropium 0.5 Mg)) 1 neb INH [id number] AWAKE [facility] Last Admin: 08/28/17 14:18 Dose: 1 neb Alprazolam (Xanax Tab*) 0.5 mg PO TID PRN PRN Reason: AGITATION/ANXIETY Last Admin: 08/28/17 06:00 Dose: 0.5 mg Amlodipine Besylate (Norvasc Tab*) 10 mg PO DAILY [facility] Last Admin: 08/28/17 08:27 Dose: 10 mg Aspirin (Aspirin Ec Tab*) 81 mg PO DAILY [facility] Last Admin: 08/28/17 08:28 Dose: 81 mg Bupropion HCl (Wellbutrin Sr Tab*) 150 mg PO BID [facility] Last Admin: 08/28/17 08:27 Dose: 150 mg Clonidine HCl (Catapres Tab*) 0.1 mg PO TID [facility] Last Admin: 08/28/17 13:50 Dose: Not Given Guaifenesin (Mucinex*) 600 mg PO BID [facility] Last Admin: 08/28/17 08:27 Dose: 600 mg Hydroxyzine HCl (Atarax Tab*) 25 mg PO Q6H PRN PRN Reason: itching Magnesium Hydroxide (Milk Of Magnesia Liq*) 30 ml PO Q4H PRN PRN Reason: CONSTIPATION Mometasone Furoate/Formoterol Fumar (Dulera 200/5 Mdi*) 2 puff INH BID [facility] Last Admin: 08/28/17 07:22 Dose: 2 puff Morphine Sulfate (Morphine Vial*) 2 mg IV Q2H PRN PRN Reason: air hunger Last Admin: 08/28/17 17:09 Dose: 2 mg Multivitamins/Minerals (Theragran/Minerals Tab*) 1 tab PO DAILY [facility] Last Admin: 08/28/17 08:27 Dose: 1 tab Polyethylene Glycol/Electrolytes (Miralax*) 17 gm PO DAILY [facility] Last Admin: 08/28/17 08:26 Dose: 17 gm Prednisone (Deltasone Tab*) 60 mg PO DAILY [facility] Last Admin: 08/28/17 08:27 Dose: 60 mg Ticagrelor (Brilinta*) 90 mg PO BID [facility] Last Admin: 08/28/17 08:27 Dose: 90 mg Vital Signs - 8 hr 08/28/17 08/28/17 08/28/17 10:11 10:49 11:00 Temperature Pulse Rate 84 Respiratory 14 12 14 Rate Blood Pressure 146/73 (mmHg) O2 Sat by Pulse 99 Oximetry 08/28/17 08/28/17 08/28/17 11:09 11:10 11:56 Temperature Pulse Rate 89 90 Respiratory 14 12 20 Rate Blood Pressure (mmHg) O2 Sat by Pulse 100 100 Oximetry 08/28/17 08/28/17 08/28/17 12:00 12:01 13:00 Temperature 98 F Pulse Rate 96 97 105 Respiratory 16 16 21 Rate Blood Pressure 126/99 125/73 (mmHg) O2 Sat by Pulse 97 96 100 Oximetry 08/28/17 08/28/17 08/28/17 13:12 14:00 14:34 Temperature Pulse Rate 86 Respiratory 14 26 15 Rate Blood Pressure 144/80 (mmHg) O2 Sat by Pulse 100 Oximetry 08/28/17 08/28/17 08/28/17 15:00 16:00 17:00 Temperature 98.9 F Pulse Rate 90 95 119 Respiratory 22 16 20 Rate Blood Pressure 127/79 110/76 (mmHg) O2 Sat by Pulse 99 100 93 Oximetry 08/28/17 17:09 Temperature Pulse Rate Respiratory 16 Rate Blood Pressure (mmHg) O2 Sat by Pulse Oximetry Oxygen Devices in Use Now: High Flow Heated Nasal Cannula Appearance: Middle aged female sitting up in a chair, NAD Eyes: No Scleral Icterus Ears/Nose/Mouth/Throat: Mucous Membranes Moist Respiratory: Symmetrical Chest Expansion and Respiratory Effort, - - diminished breath sounds thorughout but slightly improved Cardiovascular: NL Sounds; No Murmurs; No JVD, RRR, No Edema Abdominal: NL Sounds; No Tenderness; No Distention Extremities: No Clubbing, Cyanosis Skin: No Nodules or Sclerosis Neurological: Alert and Oriented x 3 Result Diagrams: 08/28/17 05:55 08/28/17 05:55 Additional Lab and Data: Lab Results 08/18/17 08/18/17 08/18/17 Range/Units 10:37 10:37 10:37 WBC 6.1 (3.5-10.8) 10^3/ul RBC 4.58 (4.0-5.4) 10^6/ul Hgb 15.0 (12.0-16.0) g/dl Hct 44 (35-47) % MCV 95 (80-97) fL MCH 33 H (27-31) pg MCHC 35 (31-36) g/dl RDW 14 (10.5-15) % Plt Count 177 (150-450) 10^3/ul MPV 7.7 (7.4-10.4) um3 Neut % (Auto) 73.6 (38-83) % Lymph % (Auto) 12.6 L (25-47) % Hinds % (Auto) 10.1 H (0-7) % Eos % (Auto) 3.4 (0-6) % Baso % (Auto) 0.3 (0-2) % Absolute Neuts (auto) 4.5 (1.5-7.7) 10^3/ul Absolute Lymphs (auto) 0.8 L (1.0-4.8) 10^3/ul Absolute Monos (auto) 0.6 (0-0.8) 10^3/ul Absolute Eos (auto) 0.2 (0-0.6) 10^3/ul Absolute Basos (auto) 0 (0-0.2) 10^3/ul Absolute Nucleated RBC 0 10^3/ul Nucleated RBC % 0.1 INR (Anticoag Therapy) 0.86 (0.77-1.02) APTT 31.5 (26.0-36.3) seconds Sodium 132 L (139-145) mmol/L Potassium 3.6 (3.5-5.0) mmol/L Chloride 97 L (101-111) mmol/L Carbon Dioxide 23 (22-32) mmol/L Anion Gap 12 H (2-11) mmol/L BUN 7 (6-24) mg/dL Creatinine 0.80 (0.51-0.95) mg/dL Est GFR ( Amer) 92.3 (>60) Est GFR (Non-Af Amer) 71.8 (>60) BUN/Creatinine Ratio 8.8 (8-20) Glucose 92 (70-100) mg/dL Lactic Acid (0.5-2.0) mmol/L Calcium 9.2 (8.6-10.3) mg/dL Magnesium 1.9 (1.9-2.7) mg/dL Total Bilirubin 0.50 (0.2-1.0) mg/dL AST 37 (13-39) U/L ALT 20 (7-52) U/L Alkaline Phosphatase 84 (34-104) U/L Total Creatine Kinase 171 (10-223) U/L Troponin I 1.00 H* (<0.04) ng/mL C-Reactive Protein 8.19 H (< 5.00) mg/L B-Natriuretic Peptide ( - 100) pg/mL Total Protein 6.9 (6.4-8.9) g/dL Albumin 4.4 (3.2-5.2) g/dL Globulin 2.5 (2-4) g/dL Albumin/Globulin Ratio 1.8 (1-3) Lipase 22 (11.0-82.0) U/L 08/18/17 08/18/17 Range/Units 10:37 10:37 WBC (3.5-10.8) 10^3/ul RBC (4.0-5.4) 10^6/ul Hgb (12.0-16.0) g/dl Hct (35-47) % MCV (80-97) fL MCH (27-31) pg MCHC (31-36) g/dl RDW (10.5-15) % Plt Count (150-450) 10^3/ul MPV (7.4-10.4) um3 Neut % (Auto) (38-83) % Lymph % (Auto) (25-47) % Hinds % (Auto) (0-7) % Eos % (Auto) (0-6) % Baso % (Auto) (0-2) % Absolute Neuts (auto) (1.5-7.7) 10^3/ul Absolute Lymphs (auto) (1.0-4.8) 10^3/ul Absolute Monos (auto) (0-0.8) 10^3/ul Absolute Eos (auto) (0-0.6) 10^3/ul Absolute Basos (auto) (0-0.2) 10^3/ul Absolute Nucleated RBC 10^3/ul Nucleated RBC % INR (Anticoag Therapy) (0.77-1.02) APTT (26.0-36.3) seconds Sodium (139-145) mmol/L Potassium (3.5-5.0) mmol/L Chloride (101-111) mmol/L Carbon Dioxide (22-32) mmol/L Anion Gap (2-11) mmol/L BUN (6-24) mg/dL Creatinine (0.51-0.95) mg/dL Est GFR ( Amer) (>60) Est GFR (Non-Af Amer) (>60) BUN/Creatinine Ratio (8-20) Glucose (70-100) mg/dL Lactic Acid 1.9 (0.5-2.0) mmol/L Calcium (8.6-10.3) mg/dL Magnesium (1.9-2.7) mg/dL Total Bilirubin (0.2-1.0) mg/dL AST (13-39) U/L ALT (7-52) U/L Alkaline Phosphatase (34-104) U/L Total Creatine Kinase (10-223) U/L Troponin I (<0.04) ng/mL C-Reactive Protein (< 5.00) mg/L B-Natriuretic Peptide 67 ( - 100) pg/mL Total Protein (6.4-8.9) g/dL Albumin (3.2-5.2) g/dL Globulin (2-4) g/dL Albumin/Globulin Ratio (1-3) Lipase (11.0-82.0) U/L Microbiology and Other Data: Microbiology 08/21/17 22:40 Nasal Screen MRSA (PCR)([facility]) - Final Nasal Mrsa Not Detected Assess/Plan/Problems-Billing Ms Sanders is a 66 yo F with a h/o non-obstructive CAD (cath in 1999 showed no significant blockages) and COPD (current smoker approx 1 ppd ) who presents with COPD exacerbation and elevated troponin. - Patient Problems (1) COPD exacerbation Current Visit: Yes Status: Acute Code(s): J44.1 - CHRONIC OBSTRUCTIVE PULMONARY DISEASE W (ACUTE) EXACERBATION SNOMED Code(s): 438226333 Comment: The patient continues to very slowly recover from a severe COPD exacerbation likely secondary to viral bronchitis. Stop vapotherm now and place pt on salter cannula. Continue prednisone but will need a very slow taper. Continue prn xanax and morphine. Will start buspar 15mg BID. (2) Troponin I above reference range Current Visit: Yes Status: Acute Code(s): R74.8 - ABNORMAL LEVELS OF OTHER SERUM ENZYMES SNOMED Code(s): 633520380 Comment: Type II MA/demand ischemia. She could benefit from outpatient stress test once her respiratory issues have completely resolved. For now continue ASA and brilinta. (3) Lung nodule, multiple Current Visit: Yes Status: Acute Code(s): R91.8 - OTHER NONSPECIFIC ABNORMAL FINDING OF LUNG FIELD SNOMED Code(s): 869260190 Comment: Pt will need outpatient CT follow up in 6 months. Perhaps the patient can follow with Dr. Porter as an outpatient. (4) Hypertension Current Visit: Yes Status: Chronic Code(s): I10 - ESSENTIAL (PRIMARY) HYPERTENSION SNOMED Code(s): 21722934 Comment: BP is generally under fair control. Continue norvasc and clonidine. (5) DVT prophylaxis Current Visit: Yes Status: Acute Code(s): NOH5132 - SNOMED Code(s): 657167285 Comment: SQ heparin (6) Full code status Current Visit: Yes Status: Acute Code(s): Z78.9 - OTHER SPECIFIED HEALTH STATUS SNOMED Code(s): 262701110 Status and Disposition: .
[2017-08-28] MEDS: busPIRone TAB* 15 MG PO SCH (20:58)
[2017-08-29] MEDS: Morphine VIAL* 4 MG/ML VIAL (1 ml vial) IV PRN ×4 (02:05→21:38)
[2017-08-29] MEDS: Albuterol/Ipratropium NEB.SOL* Albuterol 2.5 MG/Ipratropium 0.5 MG 3 ML INH SCH ×3 (03:05→11:55)
[2017-08-29] MEDS: ALPRAZolam TAB* 0.5 MG PO PRN ×2 (07:53→14:06)
[2017-08-29] MEDS: Aspirin EC TAB* 81 MG TAB.EC PO SCH ×2 (07:59→08:08)
[2017-08-29] MEDS: amLODIPine TAB* 5 MG PO SCH (08:00)
[2017-08-29] MEDS: cloNIDine TAB* 0.1 MG PO SCH ×3 (08:00→21:37)
[2017-08-29] MEDS: Ticagrelor* 90 MG TAB PO SCH ×2 (08:00→21:21)
[2017-08-29] MEDS: Multivitamins/Minerals TAB PO SCH (08:00)
[2017-08-29] MEDS: buPROPion SR TAB.SR* 150 MG PO SCH ×2 (08:00→21:21)
[2017-08-29] MEDS: predniSONE TAB* 20 MG PO SCH ×2 (08:00→21:20)
[2017-08-29] MEDS: guaiFENesin ER TAB 600 MG PO SCH ×2 (08:00→21:21)
[2017-08-29] MEDS: busPIRone TAB* 15 MG PO SCH (08:01)
[2017-08-29] MEDS: Polyethylene Glycol 3350* 17 GM PACKET PO SCH (08:09)
[2017-08-29] MEDS: Mometasone/Formoter 200/5 MDI INH SCH ×2 (09:15→20:35)
[2017-08-29] MEDS ORDERED: Spiriva Inhaler DEVICE* 1 EACH DEVICE SCH ×2 (12:00→17:00)
[2017-08-29] MEDS ORDERED: Albuterol/Ipratropium NEB.SOL* Albuterol 2.5 MG/Ipratropium 0.5 MG 3 ML INH SCH (15:00)
[2017-08-29] MEDS ORDERED: Albuterol 2.5 MG/3 ML NEB.SOL* (0.083%) INH PRN (15:21)
[2017-08-29 15:37] LABS: Hematocrit 39 % (35-47); Hemoglobin 12.9 g/dl (12.0-16.0); Mean Corpuscular HGB Conc 33 g/dl (31-36); Mean Corpuscular Hemoglobin 33 pg (27-31); Mean Corpuscular Volume 98 fL (80-97); Mean Platelet Volume 7.7 um3 (7.4-10.4); Platelet Count 224 10^3/ul (150-450); Red Blood Count 3.98 10^6/ul (4.00-5.40); Red Cell Distribution Width 15 % (10.5-15); White Blood Count 19.3 10^3/ul (3.5-10.8)
[2017-08-29 15:57] LABS: ABS Basophils 0 10^3/ul (0-0.2); ABS Eosinophils 0 10^3/ul (0-0.6); ABS Lymphocytes 0.4 10^3/ul (1.0-4.8); ABS Monocytes 0.8 10^3/ul (0-0.8); ABS Neutrophils 18.1 10^3/ul (1.5-7.7); ABS Nucleated RBC 0 10^3/ul; Eosinophil % 0.1 % (0-6); Lymphocyte % 1.9 % (25-47); Nucleated Red Blood Cells % 0
[2017-08-29] MEDS: Heparin VIAL(*) 5000 UNITS/ML VIAL (FIVE THOUSAND) SUBCUT SCH ×2 (17:06→22:58)
--- NOTE | 2017-08-29 19:25 | PN ---
Hospitalist Progress Note Date of Service: 08/29/17 Pt seen and examined. Meds and labs reviewed. ROS: Pt mentions she is anxious despite her meds. Denied URIBE/dizziness, F/C, N/ V, CP, SOB, increased cough, sputum production, abd pain, diarrhea, constipation , dysuria, myalgias, arthralgias, throat pain, and new skin lesions. The rest of the 14 point ROS are unremarkable. PHYSICAL EXAM: GEN APPEARANCE: Awake, not in acute distress HEENT: NC/AT, PERRLA, moist oral mucosa, (-) throat erythema NECK: Soft, supple, (-) cervical LAD, (-)JVD HEART: S1S2 WNL, RRR, No MRG CHEST: poor air entry at bases and wheezes throughout the rest of lung solis, GAE, No R/R ABD: Soft, ND/NT, NABS 4x Q EXT: No C/C/E SKIN: Warm to touch PSYCH: No active psychosis, hallucinations, depression, SI/HI ASSESSMENT AND PLAN: #COPD exacerbation: -Will increase Prednisone to 40 mg TID -Continue nebs #Anxiety: -Will increase Buspirone -Continue PRN BZDs #Type II MS/Demand ischemia: -For outpt stress test -Will defer with PCP to F/U #Lung nodule, multiple: -For outpatient CT F/U in 6 months #HTN: -Continue Norvasc and Clonidine #DVT prophylaxis: -Continue SQ Heparin #Dispo: -As above
[2017-08-29] MEDS: busPIRone TAB* 10 MG PO SCH (21:21)
[2017-08-30] MEDS: Morphine VIAL* 4 MG/ML VIAL (1 ml vial) IV PRN ×5 (02:26→19:47)
[2017-08-30] MEDS: ALPRAZolam TAB* 0.5 MG PO PRN ×3 (05:57→21:35)
[2017-08-30] MEDS: Heparin VIAL(*) 5000 UNITS/ML VIAL (FIVE THOUSAND) SUBCUT SCH (05:59)
[2017-08-30] MEDS: Tiotropium CAP.INH* CAP.INH/18 MCG (USE ORDER SET !) INH SCH (08:02)
[2017-08-30] MEDS: Mometasone/Formoter 200/5 MDI INH SCH ×2 (08:03→22:10)
[2017-08-30] MEDS: cloNIDine TAB* 0.1 MG PO SCH ×3 (08:52→21:34)
[2017-08-30] MEDS: amLODIPine TAB* 5 MG PO SCH (08:52)
[2017-08-30] MEDS: busPIRone TAB* 10 MG PO SCH ×2 (08:52→21:34)
[2017-08-30] MEDS: Ticagrelor* 90 MG TAB PO SCH ×2 (08:53→21:35)
[2017-08-30] MEDS: Multivitamins/Minerals TAB PO SCH (08:53)
[2017-08-30] MEDS: Polyethylene Glycol 3350* 17 GM PACKET PO SCH (08:53)
[2017-08-30] MEDS: buPROPion SR TAB.SR* 150 MG PO SCH ×2 (08:53→21:34)
[2017-08-30] MEDS: Aspirin EC TAB* 81 MG TAB.EC PO SCH (08:53)
[2017-08-30] MEDS: predniSONE TAB* 20 MG PO SCH ×3 (08:53→21:34)
[2017-08-30] MEDS: guaiFENesin ER TAB 600 MG PO SCH ×2 (08:53→21:34)
[2017-08-30] MEDS ORDERED: Tiotropium CAP.INH* CAP.INH/18 MCG (USE ORDER SET !) INH SCH (09:00)
[2017-08-30 10:41] LABS: Hematocrit 37 % (35-47); Hemoglobin 12.2 g/dl (12.0-16.0); Mean Corpuscular HGB Conc 33 g/dl (31-36); Mean Corpuscular Hemoglobin 33 pg (27-31); Mean Corpuscular Volume 98 fL (80-97); Mean Platelet Volume 7.5 um3 (7.4-10.4); Platelet Count 227 10^3/ul (150-450); Red Blood Count 3.72 10^6/ul (4.00-5.40); Red Cell Distribution Width 15 % (10.5-15); White Blood Count 17.7 10^3/ul (3.5-10.8)
[2017-08-30 11:00] LABS: EGFR Non-African American 83.7 (>60)
[2017-08-30 11:14] LABS: ABS Basophils 0 10^3/ul (0-0.2); ABS Eosinophils 0 10^3/ul (0-0.6); ABS Lymphocytes 0.6 10^3/ul (1.0-4.8); ABS Neutrophils 16.2 10^3/ul (1.5-7.7); ABS Nucleated RBC 0 10^3/ul; Eosinophil % 0 % (0-6); Lymphocyte % 3.1 % (25-47); Nucleated Red Blood Cells % 0
[2017-08-30 11:16] LABS: Monocytes % 3 % (0-7)
--- NOTE | 2017-08-30 20:02 | PN ---
Hospitalist Progress Note Date of Service: 08/30/17 Pt seen and examined. Meds and labs reviewed. ROS: Pt mentions she is anxious despite her meds. Denied URIBE/dizziness, F/C, N/ V, CP, SOB, increased cough, sputum production, abd pain, diarrhea, constipation , dysuria, myalgias, arthralgias, throat pain, and new skin lesions. The rest of the 14 point ROS are unremarkable. PHYSICAL EXAM: GEN APPEARANCE: Awake, not in acute distress HEENT: NC/AT, PERRLA, moist oral mucosa, (-) throat erythema NECK: Soft, supple, (-) cervical LAD, (-)JVD HEART: S1S2 WNL, RRR, No MRG CHEST: Only minor squeaks, GAE, No R/R ABD: Soft, ND/NT, NABS 4x Q EXT: No C/C/E SKIN: Warm to touch PSYCH: No active psychosis, hallucinations, depression, SI/HI ASSESSMENT AND PLAN: #COPD exacerbation: -Continue Prednisone to 40 mg TID -Continue nebs -Unfortunately, pt still on Vapothermper policy, pt will need to stay in the ICU #Anxiety: -Continue Buspirone -Continue PRN BZDs #Type II MO/Demand ischemia: -For outpt stress test -Will defer with PCP to F/U #Lung nodule, multiple: -For outpatient CT F/U in 6 months #HTN: -Continue Norvasc and Clonidine #DVT prophylaxis: -Continue SQ Heparin #Dispo: -As above
[2017-08-31] MEDS: Morphine VIAL* 4 MG/ML VIAL (1 ml vial) IV PRN ×4 (02:29→21:08)
[2017-08-31] MEDS: ALPRAZolam TAB* 0.5 MG PO PRN ×3 (05:20→21:42)
[2017-08-31 05:57] LABS: Hematocrit 35 % (35-47); Hemoglobin 11.6 g/dl (12.0-16.0); Mean Corpuscular HGB Conc 33 g/dl (31-36); Mean Corpuscular Hemoglobin 33 pg (27-31); Mean Corpuscular Volume 98 fL (80-97); Mean Platelet Volume 7.7 um3 (7.4-10.4); Platelet Count 214 10^3/ul (150-450); Red Blood Count 3.55 10^6/ul (4.00-5.40); Red Cell Distribution Width 15 % (10.5-15); White Blood Count 13.7 10^3/ul (3.5-10.8)
[2017-08-31 06:16] LABS: EGFR Non-African American 92.8 (>60)
[2017-08-31] MEDS: Tiotropium CAP.INH* CAP.INH/18 MCG (USE ORDER SET !) INH SCH (07:27)
[2017-08-31] MEDS: Mometasone/Formoter 200/5 MDI INH SCH ×2 (07:27→19:50)
[2017-08-31] MEDS: predniSONE TAB* 20 MG PO SCH ×2 (09:43→13:32)
[2017-08-31] MEDS: Aspirin EC TAB* 81 MG TAB.EC PO SCH (09:43)
[2017-08-31] MEDS: amLODIPine TAB* 5 MG PO SCH (09:43)
[2017-08-31] MEDS: Multivitamins/Minerals TAB PO SCH (09:44)
[2017-08-31] MEDS: buPROPion SR TAB.SR* 150 MG PO SCH ×2 (09:44→21:39)
[2017-08-31] MEDS: busPIRone TAB* 10 MG PO SCH ×2 (09:44→21:39)
[2017-08-31] MEDS: guaiFENesin ER TAB 600 MG PO SCH ×2 (09:44→21:39)
[2017-08-31] MEDS: Ticagrelor* 90 MG TAB PO SCH ×2 (09:44→21:39)
[2017-08-31] MEDS: Polyethylene Glycol 3350* 17 GM PACKET PO SCH (09:47)
[2017-08-31] MEDS: cloNIDine TAB* 0.1 MG PO SCH ×3 (09:47→21:39)
--- NOTE | 2017-08-31 15:34 | PN ---
Progress Note - Progress Note Date of Service: 08/31/17 - Pulm f/unote Note: Pt seen and examined at bedside. Pt reports improvement in breathing. Became dyspneic when she ambulated to bathroom earlier, denies cough, chest pain Active Medications Generic Name Dose Route Start Last Admin Trade Name Freq PRN Reason Stop Dose Admin Acetaminophen 650 mg 08/18/17 13:21 Tylenol Tab* PO Q4H PRN FEVER/PAIN Al Hydrox/Mg Hydrox/Simethicone 30 ml 08/18/17 13:21 Maalox Plus* PO Q6H PRN INDIGESTION Albuterol 2.5 mg 08/29/17 15:21 Ventolin 2.5 Mg/3 Ml Neb.Maritza* INH Q2H PRN SHORTNESS OF BREATH Alprazolam 0.5 mg 08/26/17 17:25 08/31/17 13:32 Xanax Tab* PO 0.5 mg TID PRN Administration AGITATION/ANXIETY Amlodipine Besylate 10 mg 08/23/17 09:00 08/31/17 09:43 Norvasc Tab* PO 10 mg DAILY NATE Administration Aspirin 81 mg 08/19/17 09:00 08/31/17 09:43 Aspirin Ec Tab* PO 81 mg DAILY NATE Administration Bupropion HCl 150 mg 08/18/17 21:00 08/31/17 09:44 Wellbutrin Sr Tab* PO 150 mg BID NATE Administration Buspirone HCl 20 mg 08/29/17 15:23 08/31/17 09:44 Buspar Tab* PO 20 mg BID NATE Administration Clonidine HCl 0.1 mg 08/22/17 14:00 08/31/17 14:09 Catapres Tab* PO Not Given TID NATE Device 1 each 08/29/17 17:00 Tiotropium Inhaler Device* .SEE ORDER .USE w/ SPIRIVA CAPS NATE Guaifenesin 600 mg 08/27/17 21:00 08/31/17 09:44 Mucinex* PO 600 mg BID NATE Administration Hydroxyzine HCl 25 mg 08/19/17 10:17 Atarax Tab* PO Q6H PRN itching Magnesium Hydroxide 30 ml 08/24/17 08:25 Milk Of Magnesia Liq* PO Q4H PRN CONSTIPATION Mometasone Furoate/Formoterol Fumar 2 puff 08/18/17 21:00 06/16/18 07:27 Dulera 200/5 Mdi* INH 2 puff BID NATE Administration Morphine Sulfate 2 mg 08/22/17 11:59 08/31/17 12:28 Morphine Vial* IV 2 mg Q2H PRN Administration air hunger Multivitamins/Minerals 1 tab 08/19/17 09:00 08/31/17 09:44 Theragran/Minerals Tab* PO 1 tab DAILY NATE Administration Polyethylene Glycol/Electrolytes 17 gm 08/24/17 09:00 08/31/17 09:47 Miralax* PO Not Given DAILY NATE Prednisone 40 mg 08/29/17 21:00 08/31/17 13:32 Deltasone Tab* PO 40 mg TID NATE Administration Ticagrelor 90 mg 08/18/17 21:00 08/31/17 09:44 Brilinta* PO 90 mg BID NATE Administration Tiotropium [place] 1 cap 08/30/17 09:00 08/31/17 07:27 Spiriva Cap.Inh* INH 1 puff DAILY NATE Administration Vital Signs Temp Pulse Resp BP Pulse Ox 97.7 F 89 18 125/82 99 08/31/17 07:44 08/31/17 07:44 08/31/17 13:32 08/31/17 07:44 08/31/17 07:44 O/E; Pt in NAD, sitting in bed, alert, awake, oriented HEENT: PERRLA, no accessory muscle usage Lungs: Diminished air entry b/l, no significant wheeze present, improved air entry CVS: s1, S2+, regular, no murmur Abd: Soft, BS+, NT Et: Normal ROM, no edema Neuro: No focal deficits Skin: NO rash, hyperemeia of cheeks Laboratory Results - last 24 hr 08/31/17 08/31/17 05:13 05:13 WBC 13.7 H RBC 3.55 L Hgb 11.6 L Hct 35 MCV 98 H MCH 33 H MCHC 33 RDW 15 Plt Count 214 MPV 7.7 Sodium 134 L Potassium 4.3 Chloride 100 L Carbon Dioxide 30 Anion Gap 4 BUN 20 Creatinine 0.64 Est GFR ( Amer) 119.4 Est GFR (Non-Af Amer) 92.8 BUN/Creatinine Ratio 31.3 H Glucose 144 H Calcium 9.5 Phosphorus 3.3 Magnesium 2.1 I/R: 66 y o f with significant smoking history, current smoker a/w worsening SOB after viral bronchitis with acute COPD exacerbation Pt feeling much better today, not requiring high flow Not dyspneic at rest, slightly dyspneic with exertion Has been off BiPAP during daytime c/w NIPPV at night Anxiety seems to be significant component, meds helpful C/w nebs, O2 c/w prednisone taper Anticipate need for home care, BiPAP and O2 upon d/c OOB to chair and ambulate as tolerate PT/OT
--- NOTE | 2017-08-31 16:29 | PN ---
Subjective Date of Service: 08/31/17 Interval History: Pt seen and examined. Meds and labs reviewed. ROS: Denied URIBE/dizziness, F/C, N/V, CP, SOB, increased cough, sputum production , abd pain, diarrhea, constipation, dysuria, myalgias, arthralgias, throat pain , and new skin lesions. The rest of the 14 point ROS are unremarkable. PHYSICAL EXAM: GEN APPEARANCE: Awake, not in acute distress HEENT: NC/AT, PERRLA, moist oral mucosa, (-) throat erythema NECK: Soft, supple, (-) cervical LAD, (-)JVD HEART: S1S2 WNL, RRR, No MRG CHEST: CTA, BL, GAE, Occasional and infrequent wheezes and mild squeaks, no /R/R ABD: Soft, ND/NT, NABS 4x Q EXT: No C/C/E SKIN: Warm to touch PSYCH: No active psychosis, hallucinations, depression, SI/HI Objective Active Medications: Acetaminophen (Tylenol Tab*) 650 mg PO Q4H PRN PRN Reason: FEVER/PAIN Al Hydrox/Mg Hydrox/Simethicone (Maalox Plus*) 30 ml PO Q6H PRN PRN Reason: INDIGESTION Albuterol (Ventolin 2.5 Mg/3 Ml Neb.Maritza*) 2.5 mg INH Q2H PRN PRN Reason: SHORTNESS OF BREATH Alprazolam (Xanax Tab*) 0.5 mg PO TID PRN PRN Reason: AGITATION/ANXIETY Last Admin: 08/31/17 13:32 Dose: 0.5 mg Amlodipine Besylate (Norvasc Tab*) 10 mg PO DAILY [facility] Last Admin: 08/31/17 09:43 Dose: 10 mg Aspirin (Aspirin Ec Tab*) 81 mg PO DAILY [facility] Last Admin: 08/31/17 09:43 Dose: 81 mg Bupropion HCl (Wellbutrin Sr Tab*) 150 mg PO BID [facility] Last Admin: 08/31/17 09:44 Dose: 150 mg Buspirone HCl (Buspar Tab*) 20 mg PO BID [facility] Last Admin: 08/31/17 09:44 Dose: 20 mg Clonidine HCl (Catapres Tab*) 0.1 mg PO TID [facility] Last Admin: 08/31/17 14:09 Dose: Not Given Device (Tiotropium Inhaler Device*) 1 each .SEE ORDER .USE w/ SPIRIVA CAPS [facility] Guaifenesin (Mucinex*) 600 mg PO BID [facility] Last Admin: 08/31/17 09:44 Dose: 600 mg Hydroxyzine HCl (Atarax Tab*) 25 mg PO Q6H PRN PRN Reason: itching Magnesium Hydroxide (Milk Of Magnesia Liq*) 30 ml PO Q4H PRN PRN Reason: CONSTIPATION Mometasone Furoate/Formoterol Fumar (Dulera 200/5 Mdi*) 2 puff INH BID [facility] Last Admin: 08/31/17 07:27 Dose: 2 puff Morphine Sulfate (Morphine Vial*) 2 mg IV Q2H PRN PRN Reason: air hunger Last Admin: 08/31/17 12:28 Dose: 2 mg Multivitamins/Minerals (Theragran/Minerals Tab*) 1 tab PO DAILY [facility] Last Admin: 08/31/17 09:44 Dose: 1 tab Polyethylene Glycol/Electrolytes (Miralax*) 17 gm PO DAILY [facility] Last Admin: 08/31/17 09:47 Dose: Not Given Prednisone (Deltasone Tab*) 40 mg PO DAILY [facility] Ticagrelor (Brilinta*) 90 mg PO BID [facility] Last Admin: 08/31/17 09:44 Dose: 90 mg Tiotropium [place] (Spiriva Cap.Inh*) 1 cap INH DAILY [facility] Last Admin: 08/31/17 07:27 Dose: 1 puff Vital Signs - 8 hr 08/31/17 08/31/17 08/31/17 09:57 12:28 13:32 Respiratory 20 20 18 Rate Oxygen Devices in Use Now: BiPAP Result Diagrams: 08/31/17 05:13 08/31/17 05:13 Additional Lab and Data: Lab Results 08/18/17 08/18/17 08/18/17 Range/Units 10:37 10:37 10:37 WBC 6.1 (3.5-10.8) 10^3/ul RBC 4.58 (4.0-5.4) 10^6/ul Hgb 15.0 (12.0-16.0) g/dl Hct 44 (35-47) % MCV 95 (80-97) fL MCH 33 H (27-31) pg MCHC 35 (31-36) g/dl RDW 14 (10.5-15) % Plt Count 177 (150-450) 10^3/ul MPV 7.7 (7.4-10.4) um3 Neut % (Auto) 73.6 (38-83) % Lymph % (Auto) 12.6 L (25-47) % [place] % (Auto) 10.1 H (0-7) % Eos % (Auto) 3.4 (0-6) % Baso % (Auto) 0.3 (0-2) % Absolute Neuts (auto) 4.5 (1.5-7.7) 10^3/ul Absolute Lymphs (auto) 0.8 L (1.0-4.8) 10^3/ul Absolute Monos (auto) 0.6 (0-0.8) 10^3/ul Absolute Eos (auto) 0.2 (0-0.6) 10^3/ul Absolute Basos (auto) 0 (0-0.2) 10^3/ul Absolute Nucleated RBC 0 10^3/ul Nucleated RBC % 0.1 INR (Anticoag Therapy) 0.86 (0.77-1.02) APTT 31.5 (26.0-36.3) seconds Sodium 132 L (139-145) mmol/L Potassium 3.6 (3.5-5.0) mmol/L Chloride 97 L (101-111) mmol/L Carbon Dioxide 23 (22-32) mmol/L Anion Gap 12 H (2-11) mmol/L BUN 7 (6-24) mg/dL Creatinine 0.80 (0.51-0.95) mg/dL Est GFR ( Amer) 92.3 (>60) Est GFR (Non-Af Amer) 71.8 (>60) BUN/Creatinine Ratio 8.8 (8-20) Glucose 92 (70-100) mg/dL Lactic Acid (0.5-2.0) mmol/L Calcium 9.2 (8.6-10.3) mg/dL Magnesium 1.9 (1.9-2.7) mg/dL Total Bilirubin 0.50 (0.2-1.0) mg/dL AST 37 (13-39) U/L ALT 20 (7-52) U/L Alkaline Phosphatase 84 (34-104) U/L Total Creatine Kinase 171 (10-223) U/L Troponin I 1.00 H* (<0.04) ng/mL C-Reactive Protein 8.19 H (< 5.00) mg/L B-Natriuretic Peptide ( - 100) pg/mL Total Protein 6.9 (6.4-8.9) g/dL Albumin 4.4 (3.2-5.2) g/dL Globulin 2.5 (2-4) g/dL Albumin/Globulin Ratio 1.8 (1-3) Lipase 22 (11.0-82.0) U/L 08/18/17 08/18/17 Range/Units 10:37 10:37 WBC (3.5-10.8) 10^3/ul RBC (4.0-5.4) 10^6/ul Hgb (12.0-16.0) g/dl Hct (35-47) % MCV (80-97) fL MCH (27-31) pg MCHC (31-36) g/dl RDW (10.5-15) % Plt Count (150-450) 10^3/ul MPV (7.4-10.4) um3 Neut % (Auto) (38-83) % Lymph % (Auto) (25-47) % [place] % (Auto) (0-7) % Eos % (Auto) (0-6) % Baso % (Auto) (0-2) % Absolute Neuts (auto) (1.5-7.7) 10^3/ul Absolute Lymphs (auto) (1.0-4.8) 10^3/ul Absolute Monos (auto) (0-0.8) 10^3/ul Absolute Eos (auto) (0-0.6) 10^3/ul Absolute Basos (auto) (0-0.2) 10^3/ul Absolute Nucleated RBC 10^3/ul Nucleated RBC % INR (Anticoag Therapy) (0.77-1.02) APTT (26.0-36.3) seconds Sodium (139-145) mmol/L Potassium (3.5-5.0) mmol/L Chloride (101-111) mmol/L Carbon Dioxide (22-32) mmol/L Anion Gap (2-11) mmol/L BUN (6-24) mg/dL Creatinine (0.51-0.95) mg/dL Est GFR ( Amer) (>60) Est GFR (Non-Af Amer) (>60) BUN/Creatinine Ratio (8-20) Glucose (70-100) mg/dL Lactic Acid 1.9 (0.5-2.0) mmol/L Calcium (8.6-10.3) mg/dL Magnesium (1.9-2.7) mg/dL Total Bilirubin (0.2-1.0) mg/dL AST (13-39) U/L ALT (7-52) U/L Alkaline Phosphatase (34-104) U/L Total Creatine Kinase (10-223) U/L Troponin I (<0.04) ng/mL C-Reactive Protein (< 5.00) mg/L B-Natriuretic Peptide 67 ( - 100) pg/mL Total Protein (6.4-8.9) g/dL Albumin (3.2-5.2) g/dL Globulin (2-4) g/dL Albumin/Globulin Ratio (1-3) Lipase (11.0-82.0) U/L Microbiology and Other Data: Microbiology 08/21/17 22:40 Nasal Screen MRSA (PCR)([facility]) - Final Nasal Mrsa Not Detected Assess/Plan/Problems-Billing - Patient Problems (1) COPD exacerbation Current Visit: Yes Status: Acute Code(s): J44.1 - CHRONIC OBSTRUCTIVE PULMONARY DISEASE W (ACUTE) EXACERBATION SNOMED Code(s): 098946133 Comment: -Continue Prednisone to 40 mg qday -Continue nebs (2) Anxiety Current Visit: Yes Status: Acute Code(s): F41.9 - ANXIETY DISORDER, UNSPECIFIED SNOMED Code(s): 65557924 Comment: -Continue Buspirone -Continue PRN BZDs (3) Troponin I above reference range Current Visit: Yes Status: Acute Code(s): R74.8 - ABNORMAL LEVELS OF OTHER SERUM ENZYMES SNOMED Code(s): 437746103 Comment: #Type II NE/Demand ischemia: -For outpt stress test -Will defer with PCP to F/U (4) Lung nodule, multiple Current Visit: Yes Status: Acute Code(s): R91.8 - OTHER NONSPECIFIC ABNORMAL FINDING OF LUNG FIELD SNOMED Code(s): 119382943 Comment: #Lung nodule, multiple: -For outpatient CT F/U in 6 months (5) Hypertension Current Visit: Yes Status: Chronic Code(s): I10 - ESSENTIAL (PRIMARY) HYPERTENSION SNOMED Code(s): 86103436 Comment: -Continue Norvasc and Clonidine (6) DVT prophylaxis Current Visit: Yes Status: Acute Code(s): XLW6779 - SNOMED Code(s): 412413366 Comment: -Continue SQ Heparin Status and Disposition: -Will likely need STR and pt and daughter prefers this given difficulty ambulating 20 feet despite significant clinical improvement
[2017-09-01] MEDS: Morphine VIAL* 4 MG/ML VIAL (1 ml vial) IV PRN ×4 (01:34→19:21)
[2017-09-01] MEDS: ALPRAZolam TAB* 0.5 MG PO PRN ×3 (06:31→21:11)
[2017-09-01 07:03] LABS: Hematocrit 33 % (35-47); Hemoglobin 11.4 g/dl (12.0-16.0); Mean Corpuscular HGB Conc 34 g/dl (31-36); Mean Corpuscular Hemoglobin 33 pg (27-31); Mean Corpuscular Volume 98 fL (80-97); Mean Platelet Volume 7.4 um3 (7.4-10.4); Platelet Count 221 10^3/ul (150-450); Red Blood Count 3.42 10^6/ul (4.00-5.40); Red Cell Distribution Width 15 % (10.5-15); White Blood Count 14.2 10^3/ul (3.5-10.8)
[2017-09-01] MEDS: Tiotropium CAP.INH* CAP.INH/18 MCG (USE ORDER SET !) INH SCH (07:21)
[2017-09-01] MEDS: Mometasone/Formoter 200/5 MDI INH SCH ×3 (07:22→22:31)
[2017-09-01 07:27] LABS: EGFR Non-African American 83.7 (>60)
[2017-09-01 07:34] LABS: ABS Basophils 0 10^3/ul (0-0.2); ABS Eosinophils 0 10^3/ul (0-0.6); ABS Lymphocytes 0.9 10^3/ul (1.0-4.8); ABS Neutrophils 12.3 10^3/ul (1.5-7.7); ABS Nucleated RBC 0 10^3/ul; Eosinophil % 0.1 % (0-6); Lymphocyte % 6.2 % (25-47); Nucleated Red Blood Cells % 0
[2017-09-01] MEDS: Aspirin EC TAB* 81 MG TAB.EC PO SCH (08:52)
[2017-09-01] MEDS: amLODIPine TAB* 5 MG PO SCH (08:53)
[2017-09-01] MEDS: Multivitamins/Minerals TAB PO SCH (08:53)
[2017-09-01] MEDS: guaiFENesin ER TAB 600 MG PO SCH ×2 (08:53→21:11)
[2017-09-01] MEDS: busPIRone TAB* 10 MG PO SCH ×2 (08:53→21:11)
[2017-09-01] MEDS: buPROPion SR TAB.SR* 150 MG PO SCH ×2 (08:53→21:11)
[2017-09-01] MEDS: Ticagrelor* 90 MG TAB PO SCH ×2 (08:54→21:11)
[2017-09-01] MEDS: Polyethylene Glycol 3350* 17 GM PACKET PO SCH (08:57)
[2017-09-01] MEDS: cloNIDine TAB* 0.1 MG PO SCH ×3 (08:57→21:11)
[2017-09-01] MEDS ORDERED: predniSONE TAB* 20 MG PO SCH (09:00)
--- NOTE | 2017-09-01 09:58 | PN ---
Progress Note - Progress Note Date of Service: 09/01/17 - Pulm f/u note Note: Pt seen and examined at bedside. Pt reports feeling much better this morning. Had used BiPAP last night. Plans to get out of bed and ambulate this morning Active Medications Generic Name Dose Route Start Last Admin Trade Name Freq PRN Reason Stop Dose Admin Acetaminophen 650 mg 08/18/17 13:21 Tylenol Tab* PO Q4H PRN FEVER/PAIN Al Hydrox/Mg Hydrox/Simethicone 30 ml 08/18/17 13:21 Maalox Plus* PO Q6H PRN INDIGESTION Albuterol 2.5 mg 08/29/17 15:21 Ventolin 2.5 Mg/3 Ml Neb.Maritza* INH Q2H PRN SHORTNESS OF BREATH Alprazolam 0.5 mg 08/26/17 17:25 09/01/17 06:31 Xanax Tab* PO 0.5 mg TID PRN Administration AGITATION/ANXIETY Amlodipine Besylate 10 mg 08/23/17 09:00 09/01/17 08:53 Norvasc Tab* PO 10 mg DAILY [facility] Administration Aspirin 81 mg 08/19/17 09:00 09/01/17 08:52 Aspirin Ec Tab* PO 81 mg DAILY [facility] Administration Bupropion HCl 150 mg 08/18/17 21:00 09/01/17 08:53 Wellbutrin Sr Tab* PO 150 mg BID [facility] Administration Buspirone HCl 20 mg 08/29/17 15:23 09/01/17 08:53 Buspar Tab* PO 20 mg BID [facility] Administration Clonidine HCl 0.1 mg 08/22/17 14:00 09/01/17 08:57 Catapres Tab* PO Not Given TID [facility] Device 1 each 08/29/17 17:00 Tiotropium Inhaler Device* .SEE ORDER .USE w/ SPIRIVA CAPS [facility] Guaifenesin 600 mg 08/27/17 21:00 09/01/17 08:53 Mucinex* PO 600 mg BID [facility] Administration Hydroxyzine HCl 25 mg 08/19/17 10:17 Atarax Tab* PO Q6H PRN itching Magnesium Hydroxide 30 ml 08/24/17 08:25 Milk Of Magnesia Liq* PO Q4H PRN CONSTIPATION Mometasone Furoate/Formoterol Fumar 2 puff 08/18/17 21:00 09/01/17 07:22 Dulera 200/5 Mdi* INH 2 puff BID [facility] Administration Morphine Sulfate 2 mg 08/22/17 11:59 09/01/17 09:05 Morphine Vial* IV 2 mg Q2H PRN Administration air hunger Multivitamins/Minerals 1 tab 08/19/17 09:00 09/01/17 08:53 Theragran/Minerals Tab* PO 1 tab DAILY [facility] Administration Polyethylene Glycol/Electrolytes 17 gm 08/24/17 09:00 09/01/17 08:57 Miralax* PO Not Given DAILY [facility] Prednisone 40 mg 09/01/17 09:00 09/01/17 08:53 Deltasone Tab* PO 40 mg DAILY [facility] Administration Ticagrelor 90 mg 08/18/17 21:00 09/01/17 08:54 Brilinta* PO 90 mg BID [facility] Administration Tiotropium [place] 1 cap 08/30/17 09:00 09/01/17 07:21 Spiriva Cap.Inh* INH 1 puff DAILY [facility] Administration Vital Signs Temp Pulse Resp BP Pulse Ox 98.2 F 77 20 149/67 100 09/01/17 07:21 09/01/17 07:21 09/01/17 09:05 09/01/17 07:21 09/01/17 07:21 O/E; Pt in NAD, sitting in bed, alert, awake, oriented HEENT: PERRLA, no accessory muscle usage Lungs: Diminished air entry b/l, no wheeze present CVS: s1, S2+, regular, no murmur Abd: Soft, BS+, NT, ND Et: Normal ROM, no edema Neuro: No focal deficits Skin: NO rash Laboratory Results - last 24 hr 09/01/17 09/01/17 06:17 06:17 WBC 14.2 H RBC 3.42 L Hgb 11.4 L Hct 33 L MCV 98 H MCH 33 H MCHC 34 RDW 15 Plt Count 221 MPV 7.4 Neut % (Auto) 86.6 H Lymph % (Auto) 6.2 L [place] % (Auto) 7.0 Eos % (Auto) 0.1 Baso % (Auto) 0.1 Absolute Neuts (auto) 12.3 H Absolute Lymphs (auto) 0.9 L Absolute Monos (auto) 1.0 H Absolute Eos (auto) 0 Absolute Basos (auto) 0 Absolute Nucleated RBC 0 Nucleated RBC % 0 Sodium 137 Potassium 3.9 Chloride 103 Carbon Dioxide 30 Anion Gap 4 BUN 19 Creatinine 0.70 Est GFR ( Amer) 107.7 Est GFR (Non-Af Amer) 83.7 BUN/Creatinine Ratio 27.1 H Glucose 92 Calcium 9.5 I/R: 66 y o f with significant smoking history, current smoker a/w worsening SOB after viral bronchitis with acute COPD exacerbation Pt feeling much better today, has tolerated BiPAP last night and is on 2.5L O2 Not dyspneic at rest, slightly dyspneic with exertion Leucocytosis sec to steroids, changed to 40mg prednisone today Anxiety seems to be significant component, meds have been helpful C/w nebs, titrate O2 as tolerated to maintain O2 sat around 92%, BiPAP at night c/w prednisone taper OOB and ambulate as tolerated today Anticipate need for home care, BiPAP and O2 upon d/c OOB to chair and ambulate as tolerate PT/OT
--- NOTE | 2017-09-01 16:55 | PN ---
Subjective Date of Service: 09/01/17 Interval History: Pt seen and examined. Meds and labs reviewed. Pt has tolerated BiPAP last night. Appreciate Dr. Mace assistance. ROS: Denied URIBE/dizziness, F/C, N/V, CP, SOB, increased cough, sputum production , abd pain, diarrhea, constipation, dysuria, myalgias, arthralgias, throat pain , and new skin lesions. The rest of the 14 point ROS are unremarkable. PHYSICAL EXAM: GEN APPEARANCE: Awake, not in acute distress HEENT: NC/AT, PERRLA, moist oral mucosa, (-) throat erythema NECK: Soft, supple, (-) cervical LAD, (-)JVD HEART: S1S2 WNL, RRR, No MRG CHEST: CTA, BL, GAE, No W/R/R ABD: Soft, ND/NT, NABS 4x Q EXT: No C/C/E SKIN: Warm to touch PSYCH: No active psychosis, hallucinations, depression, SI/HI Objective Active Medications: Acetaminophen (Tylenol Tab*) 650 mg PO Q4H PRN PRN Reason: FEVER/PAIN Al Hydrox/Mg Hydrox/Simethicone (Maalox Plus*) 30 ml PO Q6H PRN PRN Reason: INDIGESTION Albuterol (Ventolin 2.5 Mg/3 Ml Neb.Maritza*) 2.5 mg INH Q2H PRN PRN Reason: SHORTNESS OF BREATH Alprazolam (Xanax Tab*) 0.5 mg PO TID PRN PRN Reason: AGITATION/ANXIETY Last Admin: 09/01/17 13:52 Dose: 0.5 mg Amlodipine Besylate (Norvasc Tab*) 10 mg PO DAILY [facility] Last Admin: 09/01/17 08:53 Dose: 10 mg Aspirin (Aspirin Ec Tab*) 81 mg PO DAILY [facility] Last Admin: 09/01/17 08:52 Dose: 81 mg Bupropion HCl (Wellbutrin Sr Tab*) 150 mg PO BID [facility] Last Admin: 09/01/17 08:53 Dose: 150 mg Buspirone HCl (Buspar Tab*) 20 mg PO BID [facility] Last Admin: 09/01/17 08:53 Dose: 20 mg Clonidine HCl (Catapres Tab*) 0.1 mg PO TID [facility] Last Admin: 09/01/17 13:04 Dose: 0.1 mg Device (Tiotropium Inhaler Device*) 1 each .SEE ORDER .USE w/ SPIRIVA CAPS [facility] Guaifenesin (Mucinex*) 600 mg PO BID [facility] Last Admin: 09/01/17 08:53 Dose: 600 mg Hydroxyzine HCl (Atarax Tab*) 25 mg PO Q6H PRN PRN Reason: itching Magnesium Hydroxide (Milk Of Magnesia Liq*) 30 ml PO Q4H PRN PRN Reason: CONSTIPATION Mometasone Furoate/Formoterol Fumar (Dulera 200/5 Mdi*) 2 puff INH BID [facility] Last Admin: 09/01/17 07:22 Dose: 2 puff Morphine Sulfate (Morphine Vial*) 2 mg IV Q2H PRN PRN Reason: air hunger Last Admin: 09/01/17 13:04 Dose: 2 mg Multivitamins/Minerals (Theragran/Minerals Tab*) 1 tab PO DAILY [facility] Last Admin: 09/01/17 08:53 Dose: 1 tab Polyethylene Glycol/Electrolytes (Miralax*) 17 gm PO DAILY [facility] Last Admin: 09/01/17 08:57 Dose: Not Given Prednisone (Deltasone Tab*) 30 mg PO DAILY [facility] Ticagrelor (Brilinta*) 90 mg PO BID [facility] Last Admin: 09/01/17 08:54 Dose: 90 mg Tiotropium [place] (Spiriva Cap.Inh*) 1 cap INH DAILY [facility] Last Admin: 09/01/17 07:21 Dose: 1 puff Vital Signs - 8 hr 09/01/17 09/01/17 09/01/17 09:05 11:23 13:04 Temperature 98.2 F Pulse Rate 82 Respiratory 20 22 18 Rate Blood Pressure 155/71 (mmHg) O2 Sat by Pulse 100 Oximetry 09/01/17 09/01/17 09/01/17 13:07 13:08 13:52 Temperature Pulse Rate Respiratory 18 18 22 Rate Blood Pressure (mmHg) O2 Sat by Pulse Oximetry 09/01/17 09/01/17 15:14 16:18 Temperature 97.7 F Pulse Rate 81 Respiratory 16 20 Rate Blood Pressure 128/66 (mmHg) O2 Sat by Pulse 100 Oximetry Oxygen Devices in Use Now: Nasal Cannula, BiPAP Result Diagrams: 09/01/17 06:17 09/01/17 06:17 Additional Lab and Data: Lab Results 08/18/17 08/18/17 08/18/17 Range/Units 10:37 10:37 10:37 WBC 6.1 (3.5-10.8) 10^3/ul RBC 4.58 (4.0-5.4) 10^6/ul Hgb 15.0 (12.0-16.0) g/dl Hct 44 (35-47) % MCV 95 (80-97) fL MCH 33 H (27-31) pg MCHC 35 (31-36) g/dl RDW 14 (10.5-15) % Plt Count 177 (150-450) 10^3/ul MPV 7.7 (7.4-10.4) um3 Neut % (Auto) 73.6 (38-83) % Lymph % (Auto) 12.6 L (25-47) % [place] % (Auto) 10.1 H (0-7) % Eos % (Auto) 3.4 (0-6) % Baso % (Auto) 0.3 (0-2) % Absolute Neuts (auto) 4.5 (1.5-7.7) 10^3/ul Absolute Lymphs (auto) 0.8 L (1.0-4.8) 10^3/ul Absolute Monos (auto) 0.6 (0-0.8) 10^3/ul Absolute Eos (auto) 0.2 (0-0.6) 10^3/ul Absolute Basos (auto) 0 (0-0.2) 10^3/ul Absolute Nucleated RBC 0 10^3/ul Nucleated RBC % 0.1 INR (Anticoag Therapy) 0.86 (0.77-1.02) APTT 31.5 (26.0-36.3) seconds Sodium 132 L (139-145) mmol/L Potassium 3.6 (3.5-5.0) mmol/L Chloride 97 L (101-111) mmol/L Carbon Dioxide 23 (22-32) mmol/L Anion Gap 12 H (2-11) mmol/L BUN 7 (6-24) mg/dL Creatinine 0.80 (0.51-0.95) mg/dL Est GFR ( Amer) 92.3 (>60) Est GFR (Non-Af Amer) 71.8 (>60) BUN/Creatinine Ratio 8.8 (8-20) Glucose 92 (70-100) mg/dL Lactic Acid (0.5-2.0) mmol/L Calcium 9.2 (8.6-10.3) mg/dL Magnesium 1.9 (1.9-2.7) mg/dL Total Bilirubin 0.50 (0.2-1.0) mg/dL AST 37 (13-39) U/L ALT 20 (7-52) U/L Alkaline Phosphatase 84 (34-104) U/L Total Creatine Kinase 171 (10-223) U/L Troponin I 1.00 H* (<0.04) ng/mL C-Reactive Protein 8.19 H (< 5.00) mg/L B-Natriuretic Peptide ( - 100) pg/mL Total Protein 6.9 (6.4-8.9) g/dL Albumin 4.4 (3.2-5.2) g/dL Globulin 2.5 (2-4) g/dL Albumin/Globulin Ratio 1.8 (1-3) Lipase 22 (11.0-82.0) U/L 08/18/17 08/18/17 Range/Units 10:37 10:37 WBC (3.5-10.8) 10^3/ul RBC (4.0-5.4) 10^6/ul Hgb (12.0-16.0) g/dl Hct (35-47) % MCV (80-97) fL MCH (27-31) pg MCHC (31-36) g/dl RDW (10.5-15) % Plt Count (150-450) 10^3/ul MPV (7.4-10.4) um3 Neut % (Auto) (38-83) % Lymph % (Auto) (25-47) % [place] % (Auto) (0-7) % Eos % (Auto) (0-6) % Baso % (Auto) (0-2) % Absolute Neuts (auto) (1.5-7.7) 10^3/ul Absolute Lymphs (auto) (1.0-4.8) 10^3/ul Absolute Monos (auto) (0-0.8) 10^3/ul Absolute Eos (auto) (0-0.6) 10^3/ul Absolute Basos (auto) (0-0.2) 10^3/ul Absolute Nucleated RBC 10^3/ul Nucleated RBC % INR (Anticoag Therapy) (0.77-1.02) APTT (26.0-36.3) seconds Sodium (139-145) mmol/L Potassium (3.5-5.0) mmol/L Chloride (101-111) mmol/L Carbon Dioxide (22-32) mmol/L Anion Gap (2-11) mmol/L BUN (6-24) mg/dL Creatinine (0.51-0.95) mg/dL Est GFR ( Amer) (>60) Est GFR (Non-Af Amer) (>60) BUN/Creatinine Ratio (8-20) Glucose (70-100) mg/dL Lactic Acid 1.9 (0.5-2.0) mmol/L Calcium (8.6-10.3) mg/dL Magnesium (1.9-2.7) mg/dL Total Bilirubin (0.2-1.0) mg/dL AST (13-39) U/L ALT (7-52) U/L Alkaline Phosphatase (34-104) U/L Total Creatine Kinase (10-223) U/L Troponin I (<0.04) ng/mL C-Reactive Protein (< 5.00) mg/L B-Natriuretic Peptide 67 ( - 100) pg/mL Total Protein (6.4-8.9) g/dL Albumin (3.2-5.2) g/dL Globulin (2-4) g/dL Albumin/Globulin Ratio (1-3) Lipase (11.0-82.0) U/L Microbiology and Other Data: Microbiology 08/21/17 22:40 Nasal Screen MRSA (PCR)([facility]) - Final Nasal Mrsa Not Detected Assess/Plan/Problems-Billing Ms Sanders is a 66 yo F with a h/o non-obstructive CAD (cath in 1999 showed no significant blockages) and COPD (current smoker approx 1 ppd ) who presents with COPD exacerbation and elevated troponin. - Patient Problems (1) COPD exacerbation Current Visit: Yes Status: Acute Code(s): J44.1 - CHRONIC OBSTRUCTIVE PULMONARY DISEASE W (ACUTE) EXACERBATION SNOMED Code(s): 147086603 Comment: -Leukocytosis likely due to peripheral demarginalization due to steroids; given GAE and absence of W/R/R on exam today, will decrease prednisone to 30 mg POqday to further decrease anxiety -Continue nebs -Continue BiPAP qHS (2) Anxiety Current Visit: Yes Status: Acute Code(s): F41.9 - ANXIETY DISORDER, UNSPECIFIED SNOMED Code(s): 41615784 Comment: -Continue Buspirone -Continue PRN BZDs (3) Troponin I above reference range Current Visit: Yes Status: Acute Code(s): R74.8 - ABNORMAL LEVELS OF OTHER SERUM ENZYMES SNOMED Code(s): 808229378 Comment: #Type II OK/Demand ischemia: -For outpt stress test -Will defer with PCP to F/U (4) Lung nodule, multiple Current Visit: Yes Status: Acute Code(s): R91.8 - OTHER NONSPECIFIC ABNORMAL FINDING OF LUNG FIELD SNOMED Code(s): 104502296 Comment: #Lung nodule, multiple: -For outpatient CT F/U in 6 months (5) Hypertension Current Visit: Yes Status: Chronic Code(s): I10 - ESSENTIAL (PRIMARY) HYPERTENSION SNOMED Code(s): 89413437 Comment: -Continue Norvasc and Clonidine (6) DVT prophylaxis Current Visit: Yes Status: Acute Code(s): FCT7053 - SNOMED Code(s): 454659947 Comment: -Continue SQ Heparin Status and Disposition: -Will likely need STR and pt and daughter prefers this given difficulty ambulating 20 feet despite significant clinical improvement
[2017-09-02] MEDS: Morphine VIAL* 4 MG/ML VIAL (1 ml vial) IV PRN ×3 (00:30→15:43)
[2017-09-02 05:39] LABS: Hematocrit 33 % (35-47); Hemoglobin 11.4 g/dl (12.0-16.0); Mean Corpuscular HGB Conc 35 g/dl (31-36); Mean Corpuscular Hemoglobin 34 pg (27-31); Mean Corpuscular Volume 97 fL (80-97); Mean Platelet Volume 7.7 um3 (7.4-10.4); Platelet Count 202 10^3/ul (150-450); Red Blood Count 3.38 10^6/ul (4.00-5.40); Red Cell Distribution Width 15 % (10.5-15); White Blood Count 13.6 10^3/ul (3.5-10.8)
[2017-09-02 05:44] LABS: ABS Basophils 0 10^3/ul (0-0.2); ABS Eosinophils 0 10^3/ul (0-0.6); ABS Neutrophils 11.5 10^3/ul (1.5-7.7)
[2017-09-02 05:46] LABS: ABS Nucleated RBC 0 10^3/ul; Eosinophil % 0.1 % (0-6); Lymphocyte % 7.1 % (25-47); Nucleated Red Blood Cells % 0.1
[2017-09-02 05:57] LABS: EGFR Non-African American 98.1 (>60)
--- NOTE | 2017-09-02 07:45 | PN ---
Progress Note - Progress Note Date of Service: 09/02/17 - Pulm f/u note Note: Pt seen and examined at bedside. Pt reports feeling better. Was able to ambulate yesterday with few breaks. Denies cough, chest pain, palpitations Active Medications Generic Name Dose Route Start Last Admin Trade Name Freq PRN Reason Stop Dose Admin Acetaminophen 650 mg 08/18/17 13:21 Tylenol Tab* PO Q4H PRN FEVER/PAIN Al Hydrox/Mg Hydrox/Simethicone 30 ml 08/18/17 13:21 Maalox Plus* PO Q6H PRN INDIGESTION Albuterol 2.5 mg 08/29/17 15:21 Ventolin 2.5 Mg/3 Ml Neb.Maritza* INH Q2H PRN SHORTNESS OF BREATH Alprazolam 0.5 mg 08/26/17 17:25 09/01/17 21:11 Xanax Tab* PO 0.5 mg TID PRN Administration AGITATION/ANXIETY Amlodipine Besylate 10 mg 08/23/17 09:00 09/01/17 08:53 Norvasc Tab* PO 10 mg DAILY [facility] Administration Aspirin 81 mg 08/19/17 09:00 09/01/17 08:52 Aspirin Ec Tab* PO 81 mg DAILY [facility] Administration Bupropion HCl 150 mg 08/18/17 21:00 09/01/17 21:11 Wellbutrin Sr Tab* PO 150 mg BID NATE Administration Buspirone HCl 20 mg 08/29/17 15:23 09/01/17 21:11 Buspar Tab* PO 20 mg BID NATE Administration Clonidine HCl 0.1 mg 08/22/17 14:00 09/01/17 21:11 Catapres Tab* PO 0.1 mg TID NATE Administration Device 1 each 08/29/17 17:00 Tiotropium Inhaler Device* .SEE ORDER .USE w/ SPIRIVA CAPS NATE Guaifenesin 600 mg 08/27/17 21:00 09/01/17 21:11 Mucinex* PO 600 mg BID NATE Administration Hydroxyzine HCl 25 mg 08/19/17 10:17 Atarax Tab* PO Q6H PRN itching Magnesium Hydroxide 30 ml 08/24/17 08:25 Milk Of Magnesia Liq* PO Q4H PRN CONSTIPATION Mometasone Furoate/Formoterol Fumar 2 puff 08/18/17 21:00 09/01/17 22:31 Dulera 200/5 Mdi* INH 2 puff BID NATE Administration Morphine Sulfate 2 mg 08/22/17 11:59 09/02/17 00:30 Morphine Vial* IV 2 mg Q2H PRN Administration air hunger Multivitamins/Minerals 1 tab 08/19/17 09:00 09/01/17 08:53 Theragran/Minerals Tab* PO 1 tab DAILY NATE Administration Polyethylene Glycol/Electrolytes 17 gm 08/24/17 09:00 09/01/17 08:57 Miralax* PO Not Given DAILY NATE Prednisone 30 mg 09/01/17 16:26 Deltasone Tab* PO DAILY NATE Ticagrelor 90 mg 08/18/17 21:00 09/01/17 21:11 Brilinta* PO 90 mg BID NATE Administration Tiotropium Ellinger 1 cap 08/30/17 09:00 09/01/17 07:21 Spiriva Cap.Inh* INH 1 puff DAILY NATE Administration Vital Signs Temp Pulse Resp BP Pulse Ox 98.2 F 71 20 107/55 100 09/02/17 03:12 09/02/17 03:12 09/02/17 03:12 09/02/17 03:12 09/02/17 03:12 O/E; Pt in NAD, sitting in bed, alert, awake, oriented, in good spirits HEENT: PERRLA, no accessory muscle usage Lungs: Diminished air entry b/l, prolonged exp phase, no wheeze noted CVS: s1, S2+, regular, no murmur Abd: Soft, BS+, NT, ND Et: Normal ROM, no edema Neuro: No focal deficits Skin: No rash Laboratory Results - last 24 hr 09/02/17 09/02/17 04:52 04:52 WBC 13.6 H RBC 3.38 L Hgb 11.4 L Hct 33 L MCV 97 MCH 34 H MCHC 35 RDW 15 Plt Count 202 MPV 7.7 Neut % (Auto) 85.1 H Lymph % (Auto) 7.1 L [place] % (Auto) 7.7 H Eos % (Auto) 0.1 Baso % (Auto) 0 Absolute Neuts (auto) 11.5 H Absolute Lymphs (auto) 1.0 Absolute Monos (auto) 1.0 H Absolute Eos (auto) 0 Absolute Basos (auto) 0 Absolute Nucleated RBC 0 Nucleated RBC % 0.1 Sodium 137 Potassium 3.7 Chloride 102 Carbon Dioxide 30 Anion Gap 5 BUN 17 Creatinine 0.61 Est GFR ( Amer) 126.2 Est GFR (Non-Af Amer) 98.1 BUN/Creatinine Ratio 27.9 H Glucose 75 Calcium 9.3 I/R: 66 y o f with significant smoking history, current smoker a/w worsening SOB after viral bronchitis with acute COPD exacerbation Pt feeling much better today, using BiPAP at night Not dyspneic at rest, slightly dyspneic with exertion, exercise tolerance slowly improving Leucocytosis sec to steroids, c/w prednisone toper over 10 days Anxiety seems to be significant component, meds have been helpful C/w nebs, titrate O2 as tolerated to maintain O2 sat around 92%, BiPAP at night OOB and ambulate as tolerated today PT eval, might benefit from rehab Anticipate need for home care, BiPAP and O2 upon d/c c/w PT/OT D/c planning
[2017-09-02] MEDS: ALPRAZolam TAB* 0.5 MG PO PRN ×3 (07:47→21:08)
[2017-09-02] MEDS: Mometasone/Formoter 200/5 MDI INH SCH ×2 (07:52→19:39)
[2017-09-02] MEDS: Tiotropium CAP.INH* CAP.INH/18 MCG (USE ORDER SET !) INH SCH (07:53)
[2017-09-02] MEDS: predniSONE TAB* 20 MG PO SCH (09:51)
[2017-09-02] MEDS: Ticagrelor* 90 MG TAB PO SCH ×2 (09:52→21:09)
[2017-09-02] MEDS: guaiFENesin ER TAB 600 MG PO SCH ×2 (09:53→21:10)
[2017-09-02] MEDS: amLODIPine TAB* 5 MG PO SCH (09:53)
[2017-09-02] MEDS: Multivitamins/Minerals TAB PO SCH (09:54)
[2017-09-02] MEDS: Aspirin EC TAB* 81 MG TAB.EC PO SCH (09:55)
[2017-09-02] MEDS: Polyethylene Glycol 3350* 17 GM PACKET PO SCH (09:55)
[2017-09-02] MEDS: buPROPion SR TAB.SR* 150 MG PO SCH ×2 (09:55→21:10)
[2017-09-02] MEDS: busPIRone TAB* 10 MG PO SCH ×2 (09:55→21:10)
[2017-09-02] MEDS: cloNIDine TAB* 0.1 MG PO SCH ×3 (10:03→21:10)
[2017-09-02] MEDS: Morphine ORAL CONCENTRATE* 5 MG/0.25 ML ORAL.SYRIN PO PRN ×2 (20:20→23:40)
--- NOTE | 2017-09-02 21:57 | PN ---
Subjective Date of Service: 09/02/17 Interval History: Pt seen and examined. Meds and labs reviewed. ROS: Denied URIBE/dizziness, F/C, N/V, CP, SOB, increased cough, sputum production , abd pain, diarrhea, constipation, dysuria, myalgias, arthralgias, throat pain , and new skin lesions. The rest of the 14 point ROS are unremarkable. PHYSICAL EXAM: GEN APPEARANCE: Awake, not in acute distress HEENT: NC/AT, PERRLA, moist oral mucosa, (-) throat erythema NECK: Soft, supple, (-) cervical LAD, (-)JVD HEART: S1S2 WNL, RRR, No MRG CHEST: CTA, BL, GAE, No W/R/R ABD: Soft, ND/NT, NABS 4x Q EXT: No C/C/E SKIN: Warm to touch PSYCH: No active psychosis, hallucinations, depression, SI/HI Objective Active Medications: Acetaminophen (Tylenol Tab*) 650 mg PO Q4H PRN PRN Reason: FEVER/PAIN Al Hydrox/Mg Hydrox/Simethicone (Maalox Plus*) 30 ml PO Q6H PRN PRN Reason: INDIGESTION Albuterol (Ventolin 2.5 Mg/3 Ml Neb.Maritza*) 2.5 mg INH Q2H PRN PRN Reason: SHORTNESS OF BREATH Alprazolam (Xanax Tab*) 0.5 mg PO TID PRN PRN Reason: ANXIETY Last Admin: 09/02/17 21:08 Dose: 0.5 mg Amlodipine Besylate (Norvasc Tab*) 10 mg PO DAILY COUNT INCLUDES THE [facility] Last Admin: 09/02/17 09:53 Dose: 10 mg Aspirin (Aspirin Ec Tab*) 81 mg PO DAILY COUNT INCLUDES THE [facility] Last Admin: 09/02/17 09:55 Dose: 81 mg Bupropion HCl (Wellbutrin Sr Tab*) 150 mg PO BID COUNT INCLUDES THE [facility] Last Admin: 09/02/17 21:10 Dose: 150 mg Buspirone HCl (Buspar Tab*) 20 mg PO BID COUNT INCLUDES THE [facility] Last Admin: 09/02/17 21:10 Dose: 20 mg Clonidine HCl (Catapres Tab*) 0.1 mg PO TID COUNT INCLUDES THE [facility] Last Admin: 09/02/17 21:10 Dose: Not Given Device (Tiotropium Inhaler Device*) 1 each .SEE ORDER .USE w/ SPIRIVA CAPS COUNT INCLUDES THE [facility] Guaifenesin (Mucinex*) 600 mg PO BID COUNT INCLUDES THE [facility] Last Admin: 09/02/17 21:10 Dose: 600 mg Hydroxyzine HCl (Atarax Tab*) 25 mg PO Q6H PRN PRN Reason: itching Magnesium Hydroxide (Milk Of Magnesia Liq*) 30 ml PO Q4H PRN PRN Reason: CONSTIPATION Mometasone Furoate/Formoterol Fumar (Dulera 200/5 Mdi*) 2 puff INH BID COUNT INCLUDES THE [facility] Last Admin: 09/02/17 19:39 Dose: 2 puff Morphine Sulfate (Morphine Oral Concentrate*) 5 mg PO Q2H PRN PRN Reason: PAIN Last Admin: 09/02/17 20:20 Dose: 5 mg Multivitamins/Minerals (Theragran/Minerals Tab*) 1 tab PO DAILY COUNT INCLUDES THE [facility] Last Admin: 09/02/17 09:54 Dose: 1 tab Polyethylene Glycol/Electrolytes (Miralax*) 17 gm PO DAILY COUNT INCLUDES THE [facility] Last Admin: 09/02/17 09:55 Dose: Not Given Prednisone (Deltasone Tab*) 30 mg PO DAILY COUNT INCLUDES THE [facility] Last Admin: 09/02/17 09:51 Dose: 30 mg Ticagrelor (Brilinta*) 90 mg PO BID COUNT INCLUDES THE [facility] Last Admin: 09/02/17 21:09 Dose: 90 mg Tiotropium Imler (Spiriva Cap.Inh*) 1 cap INH DAILY COUNT INCLUDES THE [facility] Last Admin: 09/02/17 07:53 Dose: 1 puff Vital Signs - 8 hr 09/02/17 09/02/17 09/02/17 15:15 15:40 15:43 Temperature 98.2 F Pulse Rate 80 Respiratory 20 19 19 Rate Blood Pressure 139/64 (mmHg) O2 Sat by Pulse 100 Oximetry 09/02/17 09/02/17 09/02/17 18:08 18:10 18:14 Temperature Pulse Rate Respiratory 19 19 19 Rate Blood Pressure (mmHg) O2 Sat by Pulse Oximetry 09/02/17 09/02/17 09/02/17 19:29 19:41 20:20 Temperature 97.9 F Pulse Rate 97 99 Respiratory 20 16 22 Rate Blood Pressure 144/66 (mmHg) O2 Sat by Pulse 100 99 Oximetry 09/02/17 21:08 Temperature Pulse Rate Respiratory 16 Rate Blood Pressure (mmHg) O2 Sat by Pulse Oximetry Oxygen Devices in Use Now: Nasal Cannula Result Diagrams: 09/02/17 04:52 09/02/17 04:52 Additional Lab and Data: Lab Results 08/18/17 08/18/17 08/18/17 Range/Units 10:37 10:37 10:37 WBC 6.1 (3.5-10.8) 10^3/ul RBC 4.58 (4.0-5.4) 10^6/ul Hgb 15.0 (12.0-16.0) g/dl Hct 44 (35-47) % MCV 95 (80-97) fL MCH 33 H (27-31) pg MCHC 35 (31-36) g/dl RDW 14 (10.5-15) % Plt Count 177 (150-450) 10^3/ul MPV 7.7 (7.4-10.4) um3 Neut % (Auto) 73.6 (38-83) % Lymph % (Auto) 12.6 L (25-47) % [place] % (Auto) 10.1 H (0-7) % Eos % (Auto) 3.4 (0-6) % Baso % (Auto) 0.3 (0-2) % Absolute Neuts (auto) 4.5 (1.5-7.7) 10^3/ul Absolute Lymphs (auto) 0.8 L (1.0-4.8) 10^3/ul Absolute Monos (auto) 0.6 (0-0.8) 10^3/ul Absolute Eos (auto) 0.2 (0-0.6) 10^3/ul Absolute Basos (auto) 0 (0-0.2) 10^3/ul Absolute Nucleated RBC 0 10^3/ul Nucleated RBC % 0.1 INR (Anticoag Therapy) 0.86 (0.77-1.02) APTT 31.5 (26.0-36.3) seconds Sodium 132 L (139-145) mmol/L Potassium 3.6 (3.5-5.0) mmol/L Chloride 97 L (101-111) mmol/L Carbon Dioxide 23 (22-32) mmol/L Anion Gap 12 H (2-11) mmol/L BUN 7 (6-24) mg/dL Creatinine 0.80 (0.51-0.95) mg/dL Est GFR ( Amer) 92.3 (>60) Est GFR (Non-Af Amer) 71.8 (>60) BUN/Creatinine Ratio 8.8 (8-20) Glucose 92 (70-100) mg/dL Lactic Acid (0.5-2.0) mmol/L Calcium 9.2 (8.6-10.3) mg/dL Magnesium 1.9 (1.9-2.7) mg/dL Total Bilirubin 0.50 (0.2-1.0) mg/dL AST 37 (13-39) U/L ALT 20 (7-52) U/L Alkaline Phosphatase 84 (34-104) U/L Total Creatine Kinase 171 (10-223) U/L Troponin I 1.00 H* (<0.04) ng/mL C-Reactive Protein 8.19 H (< 5.00) mg/L B-Natriuretic Peptide ( - 100) pg/mL Total Protein 6.9 (6.4-8.9) g/dL Albumin 4.4 (3.2-5.2) g/dL Globulin 2.5 (2-4) g/dL Albumin/Globulin Ratio 1.8 (1-3) Lipase 22 (11.0-82.0) U/L 18 08/18/17 Range/Units 10:37 10:37 WBC (3.5-10.8) 10^3/ul RBC (4.0-5.4) 10^6/ul Hgb (12.0-16.0) g/dl Hct (35-47) % MCV (80-97) fL MCH (27-31) pg MCHC (31-36) g/dl RDW (10.5-15) % Plt Count (150-450) 10^3/ul MPV (7.4-10.4) um3 Neut % (Auto) (38-83) % Lymph % (Auto) (25-47) % [place] % (Auto) (0-7) % Eos % (Auto) (0-6) % Baso % (Auto) (0-2) % Absolute Neuts (auto) (1.5-7.7) 10^3/ul Absolute Lymphs (auto) (1.0-4.8) 10^3/ul Absolute Monos (auto) (0-0.8) 10^3/ul Absolute Eos (auto) (0-0.6) 10^3/ul Absolute Basos (auto) (0-0.2) 10^3/ul Absolute Nucleated RBC 10^3/ul Nucleated RBC % INR (Anticoag Therapy) (0.77-1.02) APTT (26.0-36.3) seconds Sodium (139-145) mmol/L Potassium (3.5-5.0) mmol/L Chloride (101-111) mmol/L Carbon Dioxide (22-32) mmol/L Anion Gap (2-11) mmol/L BUN (6-24) mg/dL Creatinine (0.51-0.95) mg/dL Est GFR ( Amer) (>60) Est GFR (Non-Af Amer) (>60) BUN/Creatinine Ratio (8-20) Glucose (70-100) mg/dL Lactic Acid 1.9 (0.5-2.0) mmol/L Calcium (8.6-10.3) mg/dL Magnesium (1.9-2.7) mg/dL Total Bilirubin (0.2-1.0) mg/dL AST (13-39) U/L ALT (7-52) U/L Alkaline Phosphatase (34-104) U/L Total Creatine Kinase (10-223) U/L Troponin I (<0.04) ng/mL C-Reactive Protein (< 5.00) mg/L B-Natriuretic Peptide 67 ( - 100) pg/mL Total Protein (6.4-8.9) g/dL Albumin (3.2-5.2) g/dL Globulin (2-4) g/dL Albumin/Globulin Ratio (1-3) Lipase (11.0-82.0) U/L Microbiology and Other Data: Microbiology 08/21/17 22:40 Nasal Screen MRSA (PCR)(CARMELO) - Final Nasal Mrsa Not Detected Assess/Plan/Problems-Billing Ms Sanders is a 66 yo F with a h/o non-obstructive CAD (cath in 1999 showed no significant blockages) and COPD (current smoker approx 1 ppd ) who presents with COPD exacerbation and elevated troponin. - Patient Problems (1) COPD exacerbation Current Visit: Yes Status: Acute Code(s): J44.1 - CHRONIC OBSTRUCTIVE PULMONARY DISEASE W (ACUTE) EXACERBATION SNOMED Code(s): 792567465 Comment: -Leukocytosis likely due to peripheral demarginalization, as evidenced by decrease when steroid was tapered along with clinical picture not supportive of an infectious process -Continue nebs -Continue BiPAP qHS (2) Anxiety Current Visit: Yes Status: Acute Code(s): F41.9 - ANXIETY DISORDER, UNSPECIFIED SNOMED Code(s): 71142999 Comment: -Continue Buspirone -Continue PRN BZDs (3) Troponin I above reference range Current Visit: Yes Status: Acute Code(s): R74.8 - ABNORMAL LEVELS OF OTHER SERUM ENZYMES SNOMED Code(s): 748459942 Comment: #Type II NH/Demand ischemia: -For outpt stress test -Will defer with PCP to F/U (4) Lung nodule, multiple Current Visit: Yes Status: Acute Code(s): R91.8 - OTHER NONSPECIFIC ABNORMAL FINDING OF LUNG FIELD SNOMED Code(s): 155258351 Comment: #Lung nodule, multiple: -For outpatient CT F/U in 6 months (5) Hypertension Current Visit: Yes Status: Chronic Code(s): I10 - ESSENTIAL (PRIMARY) HYPERTENSION SNOMED Code(s): 02914630 Comment: -Continue Norvasc and Clonidine (6) DVT prophylaxis Current Visit: Yes Status: Acute Code(s): KLR5594 - SNOMED Code(s): 344190678 Comment: -Continue SQ Heparin Status and Disposition: -For STR placement
[2017-09-03] MEDS: Morphine ORAL CONCENTRATE* 5 MG/0.25 ML ORAL.SYRIN PO PRN ×2 (06:31→15:06)
[2017-09-03] MEDS: ALPRAZolam TAB* 0.5 MG PO PRN ×2 (06:31→15:04)
[2017-09-03] MEDS: Tiotropium CAP.INH* CAP.INH/18 MCG (USE ORDER SET !) INH SCH (07:50)
[2017-09-03] MEDS: Mometasone/Formoter 200/5 MDI INH SCH (07:51)
[2017-09-03] MEDS: Polyethylene Glycol 3350* 17 GM PACKET PO SCH (09:56)
[2017-09-03] MEDS: busPIRone TAB* 10 MG PO SCH (09:58)
[2017-09-03] MEDS: cloNIDine TAB* 0.1 MG PO SCH ×2 (09:58→13:27)
[2017-09-03] MEDS: Multivitamins/Minerals TAB PO SCH (09:59)
[2017-09-03] MEDS: guaiFENesin ER TAB 600 MG PO SCH (09:59)
[2017-09-03] MEDS: Aspirin EC TAB* 81 MG TAB.EC PO SCH (10:00)
[2017-09-03] MEDS: amLODIPine TAB* 5 MG PO SCH (10:00)
[2017-09-03] MEDS: buPROPion SR TAB.SR* 150 MG PO SCH (10:00)
[2017-09-03] MEDS: predniSONE TAB* 20 MG PO SCH (10:01)
[2017-09-03] MEDS: Ticagrelor* 90 MG TAB PO SCH (10:01)
[2017-09-03 13:14] VITALS: BP 140/68
--- NOTE | 2017-09-03 15:02 | DS ---
CC: Dr. Kelley; Dr. Porter; Dr. Love; Dr. Felix; [facility] * DISCHARGE SUMMARY: DATE OF ADMISSION: 08/18/17 DATE OF DISCHARGE: 09/04/17 PRIMARY CARE PROVIDER: Dr. Kelley. DISPOSITION: The patient is being discharged to [facility] for rehab. DISCHARGE DIAGNOSES: 1. Acute hypoxemic respiratory failure due to chronic obstructive pulmonary disease exacerbation. 2. The patient is hypoxemic at discharge and she is going to be discharged on 2 L of oxygen continuously via nasal cannula as well as BiPAP at night. 3. Elevated troponin likely due to demand ischemia. 4. Exacerbation of anxiety while hypoxemic. SECONDARY DIAGNOSES: 1. History of chronic obstructive pulmonary disease. 2. History of myocardial infarction. 3. History of hypertension. 4. Hyperlipidemia. 5. History of cerebrovascular accident. 6. History of stenting of the left carotid artery. MEDICATIONS AT DISCHARGE: Include: 1. Oxygen at 2 L continuously. 2. BiPAP at night. 3. Acetaminophen 650 mg every 4 hours p.r.n. 4. Maalox 30 mL every 6 hours p.r.n. 5. Albuterol inhaler 2 puffs every 4 hours p.r.n. 6. Albuterol nebulizer 1 nebulizer every 2 hours p.r.n. 7. Xanax 0.5 mg 3 times a day for anxiety. 8. Norvasc 10 mg daily. 9. Aspirin 81 mg daily. 10. Wellbutrin SR 150 mg b.i.d. 11. BuSpar 20 mg b.i.d. 12. Clonidine 0.1 mg 3 times a day. 13. Rajani 180 mg daily. 14. Advair 500/50 one puff b.i.d. 15. Mucinex 600 mg b.i.d. 16. Hydroxyzine 25 mg every 6 hours p.r.n. 17. Morphine oral concentrate 5 mg every 2 hours p.r.n. air hunger and pain or anxiety. 18. Multivitamin 1 tablet daily. 19. [place]-3 fatty acids and fish oil 2 capsules daily. 20. MiraLAX 17 g daily. 21. Prednisone 30 mg daily. 22. Brilinta 90 mg b.i.d. 23. Spiriva 1 inhalation daily. LABORATORY DATA: Studies performed during the hospital stay included: On 09/02, white blood cell count of 13.6, hemoglobin of 11.4, hematocrit of 43, and platelets of 202. Sodium 137, potassium 3.7, chloride 102, carbon dioxide 30, BUN 17, creatinine 0.61. Last chest x-ray obtained on 08/21/17, impression: "Stigmata of obstructive lung disease. No acute pulmonary or cardiac process evident." CT angiogram of the chest obtained on 08/18/17, impression: "No evidence for pulmonary embolism. Chronic obstructive pulmonary disease. No evidence for pneumonia. Consider noncontrast CT at 6 months for reassessment of the noted small, relatively low suspicion, right pulmonary nodules." Furthermore in the body of the report, the patient was noted to have 0.7 cm nodule in the right mid lung zone, 0.6 cm noncalcified subpleural nodule in the posterior segment of the right upper lobe and 0.3 cm noncalcified nodule at the anterior basal segment of the right lower lobe. Transthoracic echocardiogram obtained on 08/18/17 showed EF of 55% to 60% with mild concentric LVH, significant diastolic dysfunction, trace mitral regurgitation and trace tricuspid regurgitation, and unable to estimate the right ventricular pressures. The patient's troponin at the beginning of her hospital stay was 1 at admission , went to 0.33 on 08/19/17. CONSULTATIONS DURING THE HOSPITAL STAY: Included Dr. Felix from Cardiology and Dr. Love and Dr. Porter from ICU/Pulmonology. HOSPITALIZATION COURSE: Chantelle Sanders is a 66-year-old female with history of carotid stenting and coronary artery disease as well as COPD, who presented to the hospital with COPD exacerbation. The patient was for the initial couple of days treated with steroids and empiric antibiotics with good results, but 3 to 4 days into her hospital stay she developed exacerbation and needed to be placed in the intensive care unit on Vapotherm. There, she was treated for several days on intermittent Vapotherm and BiPAP. Dr. Porter as well as Dr. Love saw the patient in consultation and recommended BiPAP at night at discharge. The patient was treated with long taper of steroids and finished treatment with ceftriaxone and azithromycin during her hospital stay. There was no clear-cut evidence of pneumonia during her hospital stay. Her troponin at admission was elevated and Dr. Felix saw the patient in consultation and noted that the patient likely will need a cardiac stress test after discharge, but the troponin elevation is most likely due to demand ischemia. Her echo-cardiogram showed no wall motion abnormality and functionally valves without any major problems as well as good EF. The complicating factor of the patient's hospitalization and hypoxemia as well as wheezing was her anxiety. She would get anxious very quickly and responds to it with bronchospasm. She was placed on antianxiety medication as well as morphine for air hunger with good results. By the time of discharge, she is deconditioned and weak, but otherwise uses oxygen at 2 L and feels well. She is going to be placed at [facility] for further rehabilitation. PHYSICAL EXAMINATION: At the time of discharge, blood pressure of 140/68, heart rate of 86 and regular, respiratory rate 18, oxygen saturation 100% on 2 L of oxygen via nasal cannula, temperature 98.9. General: The patient is a very pleasant 66-year-old female, who is in no acute distress. Alert, awake, and oriented x3. HEENT: Head: Atraumatic, normocephalic. Eyes: Pupils are equal, reactive to light and accommodation. Oropharynx is clear. Mucosa moist. Neck: Supple. No JVD. No bruits bilaterally. Cardiovascular: Regular rate and rhythm. No murmur. Respiratory: Fine bibasilar wheezes, otherwise clear. Abdomen: Soft, nontender. Bowel sounds are present in all 4 quadrants. Extremities: There is no edema. Pulses are +2 bilaterally. No clubbing or cyanosis. Neuro Evaluation: Speech is clear. Cranial nerves II through XII are grossly intact. Motor strength is 5/5 bilaterally. On evaluation of the skin, no ecchymotic areas or rashes noted. Psychiatric Evaluation: Pleasant, cooperative with evaluation, oriented x3 with no evidence of anxiety or depression. DISCHARGE FOLLOWUP: At discharge, the patient is also recommended to follow up with Dr. Porter, welder fitter, in approximately 1 to 2 weeks. The patient was diagnosed with pulmonary nodules as mentioned above and needs to follow up in regard to that with a CT scan in approximately 3 to 6 months. Once again, the patient is going to be discharge to [facility] for further rehabilitation. Please note that this is a short summary of the patient's hospitalization. Please refer to further medical records for details. TIME SPENT: Approximately 50 minutes was spent on the patient's discharge. [id number]/[facility] #: [id number] VINICIUS
== END 2017-09-03 17:30 | DRG 190 ==
LOC: ED 09:36 → MEDTELE 13:21 → ED 14:32 → ICU 08-21 21:16 → MEDTELE 08-30 10:20
PROVIDERS: ADMIT Pediatrics; ATTEND Internal Medicine
PROC: 5A09557 Assistance with Respiratory Ventilation, Greater than 96 Consecutive Hours, Continuous Positive Airway Pressure (ICD-10-PCS; principal; 2017-08-22)
DX: J44.1 Chronic obstructive pulmonary disease with (acute) exacerbation (principal); J96.01 Acute respiratory failure with hypoxia; I24.8 Other forms of acute ischemic heart disease; J44.9 Chronic obstructive pulmonary disease, unspecified; M06.9 Rheumatoid arthritis, unspecified; R74.8 Abnormal levels of other serum enzymes; E78.5 Hyperlipidemia, unspecified; I25.10 Atherosclerotic heart disease of native coronary artery without angina pectoris; I10 Essential (primary) hypertension; F41.9 Anxiety disorder, unspecified; R91.8 Other nonspecific abnormal finding of lung field; I08.1 Rheumatic disorders of both mitral and tricuspid valves; L50.8 Other urticaria; F17.210 Nicotine dependence, cigarettes, uncomplicated; R23.3 Spontaneous ecchymoses; R58 Hemorrhage, not elsewhere classified; I65.29 Occlusion and stenosis of unspecified carotid artery; Z85.828 Personal history of other malignant neoplasm of skin; Z91.040 Latex allergy status; Z90.710 Acquired absence of both cervix and uterus; Z90.49 Acquired absence of other specified parts of digestive tract; Z82.49 Family history of ischemic heart disease and other diseases of the circulatory system; Z83.3 Family history of diabetes mellitus; Z83.6 Family history of other diseases of the respiratory system; Z72.89 Other problems related to lifestyle; I25.2 Old myocardial infarction; Z86.73 Personal history of transient ischemic attack (TIA), and cerebral infarction without residual deficits; Z80.2 Family history of malignant neoplasm of other respiratory and intrathoracic organs; Z95.828 Presence of other vascular implants and grafts; Z88.8 Allergy status to other drugs, medicaments and biological substances; Z79.02 Long term (current) use of antithrombotics/antiplatelets; Z79.82 Long term (current) use of aspirin; Z99.81 Dependence on supplemental oxygen; Z90.721 Acquired absence of ovaries, unilateral; Z82.3 Family history of stroke; Z79.52 Long term (current) use of systemic steroids
CPT/HCPCS: 36415; 36600; 71045; 71275; 80048; 80053; 82550; 82803; 83605; 83690; 83735; 83880; 84100; 84484; 84520; 85025; 85027; 85610; 85730; 86140; 87040; 87641; 93005; 93306; 94640; 94660; 94667; 94668; 99284; A9270-GY; G8978-GP-CJ; G8979-GP-CI; J0360; J0456; J0696; J1644; J1650; J1940; J2270; J2920; J2930; J3490; J7512; Q9967

== ENCOUNTER 2017-09-13 14:31 | Emergency (ER) | payer MEDICARE, OTHER ==
[2017-09-13 15:00] LABS: Hematocrit 16 % (35-47); Hemoglobin 5.4 g/dl (12.0-16.0); Mean Corpuscular HGB Conc 34 g/dl (31-36); Mean Corpuscular Hemoglobin 33 pg (27-31); Mean Corpuscular Volume 98 fL (80-97); Platelet Count 231 10^3/ul (150-450); Red Blood Count 1.62 10^6/ul (4.00-5.40); Red Cell Distribution Width 15 % (10.5-15); White Blood Count 7.1 10^3/ul (3.5-10.8)
[2017-09-13] MEDS ORDERED: Aspirin 81 mg CHEW TAB* 81 MG TAB.CHEW PO ONE (15:02)
[2017-09-13] MEDS ORDERED: NS 0.9% 1000 ML* 1,000 ML IV ONE (15:02)
--- NOTE | 2017-09-13 15:07 | RAD ---
INDICATION: Chest pain COMPARISON: August 21, 2017 TECHNIQUE: An AP portable view obtained at 1440 hours is submitted. FINDINGS: Bones/Soft Tissues: There are no acute bony findings. Cardiomediastinal: The cardiomediastinal silhouette is normal. Lungs: There are no focal infiltrates. There is mild hyperinflation with minor interstitial prominence. Pleura: There are no pleural effusions. Other: None IMPRESSION: NO ACTIVE DISEASE. HYPERINFLATION.
[2017-09-13 15:16] LABS: EGFR Non-African American 67.8 (>60)
[2017-09-13] MEDS ORDERED: ALPRAZolam TAB* 0.5 MG PO ONE (15:24)
[2017-09-13] MEDS ORDERED: Pantoprazole IV* 40 MG IV ONE (15:26)
[2017-09-13 15:32] LABS: ABS Basophils 0 10^3/ul (0-0.2); ABS Eosinophils 0 10^3/ul (0-0.6); ABS Lymphocytes 0.3 10^3/ul (1.0-4.8); ABS Monocytes 0.2 10^3/ul (0-0.8); ABS Neutrophils 6.6 10^3/ul (1.5-7.7); ABS Nucleated RBC 0 10^3/ul; Eosinophil % 0.1 % (0-6); Lymphocyte % 4.7 % (25-47); Nucleated Red Blood Cells % 0.1
[2017-09-13] MEDS ORDERED: Pantoprazole IV* 80 MG in NS 0.9% 250 ML* 250 ML IV SCH (16:00)
[2017-09-13] MEDS ORDERED: metroNIDAZOLE IV 500 MG/100ML* 500 MG/100 ML BAG IVPB ONE (17:35)
[2017-09-13] MEDS ORDERED: Ciprofloxacin 400MG IVPREMIX(* 400 MG/200 ML BAG IVPB ONE (17:35)
[2017-09-13] MEDS ORDERED: Iohexol 300* (CONTRAST) 10 ML SDV IV ONE (18:29)
--- NOTE | 2017-09-13 18:36 | ED ---
Kia Alvarado Jacob, scribed for Amari Slaughter MD on 09/13/17 at 1501 . HPI Chest Pain - HPI Summary HPI Summary: Pt is a 66 y/o F w/ c/o left anterior chest pain radiating down the left arm. She states that she has been experiencing this pain "for a long time" but worsened at 1300. On triage, pain was rated 8/10 but she denied the presence of any current pain in the room. Pt states that she has been on Xanax and morphine for three weeks. She was recently released to [facility] a week ago. Pt's daughter who was present in the room states pt was "talking confusedly" and had difficulty forming thoughts when she visited the pt today. Pt denies BLE edema. PMHx of angina, TIA, and CHF. PSHx of left carotid artery stent but denies presence of heart stent. Pt is on BiPAP. - History of Current Complaint Chief Complaint: EDChestPainROMI Time Seen by Provider: 09/13/17 14:46 Hx Obtained From: Patient Onset/Duration: Worse Since - 2 hours ago Initial Severity: Severe - 8/10 on triage Current Severity: None - in the room Pain Intensity: 0 Pain Scale Used: 0-10 Numeric - 0/10 Chest Pain Location: Left Anterior Chest Pain Radiates To:: Arm - left Aggravating Factor(s): Nothing Alleviating Factor(s): Nothing Associated Signs and Symptoms: Positive: Other: - POSITIVE: left arm pain, "talking confusedly", difficulty forming thoughts. Negative: Edema - BLE - Additional Pertinent History Primary Care Physician: JIMMY - Allergy/Home Medications Allergies/Adverse Reactions: Allergies Allergy/AdvReac Type Severity Reaction Status Date / Time hydralazine Allergy Severe See Comment Verified 09/13/17 14:33 latex Allergy Blisters Verified 09/13/17 14:33 PMH/Surg Hx/FS Hx/Imm Hx Endocrine/Hematology History: Denies: Hx Diabetes Cardiovascular History: Reports: Hx Angina, Hx Hypertension, Other Cardiovascular Problems/Disorders - angina Denies: Hx Congestive Heart Failure, Hx Pacemaker/ICD Respiratory History: Reports: Hx Asthma, Hx Chronic Obstructive Pulmonary Disease (COPD) GI History: Reports: Other GI Disorders - DIVERTICULITIS History: Reports: Hx Kidney Infection, Other Problems/Disorders - HX MILD RENAL INSUFFICIENCY Denies: Hx Renal Disease Musculoskeletal History: Reports: Other Musculoskeletal History - RHEUMATOID ARTHRITIS Sensory History: Denies: Hx Contacts or Glasses, Hx Legally Blind, Hx Deafness, Hx Hearing Aid Opthamlomology History: Denies: Hx Contacts or Glasses, Hx Legally Blind Neurological History: Reports: Hx Transient Ischemic Attacks (TIA) - current dx Psychiatric History: Denies: Hx Panic Disorder - Cancer History Cancer Type, Location and Year: skin on finger--removed - Surgical History Surgery Procedure, Year, and Place: HYSTERECTOMY, OOPHRECTOMY, APENDECTOMY, CHOLECYSTECTOMY,TONSILECTOMY,URINARY TRACT SURGERY Hx Anesthesia Reactions: No - Immunization History Date of Tetanus Vaccine: current Date of Influenza Vaccine: 2016 Infectious Disease History: No Infectious Disease History: Denies: Traveled Outside the [place] in Last 30 Days - Family History Known Family History: Positive: Cardiac Disease, Hypertension, Diabetes, Respiratory Disease - COPD, Other - stroke - Social History Alcohol Use: Occasionally Alcohol Amount: 3 drinks every so often Hx Substance Use: No Substance Use Type: Reports: None Hx Tobacco Use: Yes Smoking Status (MU): Former Smoker Type: Cigarettes Length of Time of Smoking/Using Tobacco: 50 years Have You Smoked in the Last Year: Yes Review of Systems Negative: Fever, Chills Negative: Erythema Negative: Sore Throat Positive: Chest Pain - currently denies, on triage rated 8/10 Negative: Shortness Of Breath, Cough Negative: Abdominal Pain, Vomiting, Nausea Negative: dysuria, hematuria Negative: Myalgia, Edema - BLE Negative: Rash Neurological: Other - POSITIVE: "talking confusedly", difficulty forming thoughts NEGATIVE: dizziness All Other Systems Reviewed And Are Negative: Yes Physical Exam - Summary Physical Exam Summary: Constitutional: Well-developed, Well-nourished, Alert. (-) Distressed Skin: Warm, Dry HENT: Normocephalic; Atraumatic Eyes: Conjunctiva normal Neck: Musculoskeletal ROM normal neck. (-) JVD, (-) Stridor, (-) Tracheal deviation Cardio: Rhythm regular, rate normal, Heart sounds normal; Intact distal pulses; The pedal pulses are 2+ and symmetric. Radial pulses are 2+ and symmetric. (-) Murmur Pulmonary/Chest wall: Effort normal. (-) Respiratory distress, (-) Wheezes, (-) Rales Abd: Soft, (-), epigastric tenderness, (-) Distension, (-) Guarding, (-) Rebound Musculoskeletal: (-) Edema. Skin: Ecchymosis over right shoulder and abdomen, no palpable hematoma. Lymph: (-) Cervical adenopathy Neuro: Alert, Oriented x3 Psych: Mood and affect Normal Triage Information Reviewed: Yes Vital Signs On Initial Exam: Initial Vitals Temp Pulse Resp BP Pulse Ox 98.6 F 95 18 109/58 97 09/13/17 14:32 09/13/17 14:32 09/13/17 14:32 09/13/17 14:32 09/13/17 14:32 Vital Signs Reviewed: Yes Diagnostics - Vital Signs Vital Signs Temp Pulse Resp BP Pulse Ox 09/13/17 14:32 98.6 F 95 18 109/58 97 - Laboratory Lab Results: Lab Results 09/13/17 Range/Units 14:49 WBC 7.1 (3.5-10.8) 10^3/ul RBC 1.62 L (4.00-5.40) 10^6/ul Hgb 5.4 L* (12.0-16.0) g/dl Hct 16 L (35-47) % MCV 98 H (80-97) fL MCH 33 H (27-31) pg MCHC 34 (31-36) g/dl RDW 15 (10.5-15) % Plt Count 231 (150-450) 10^3/ul MPV 7.0 L (7.4-10.4) um3 Neut % (Auto) Pending Lymph % (Auto) Pending [place] % (Auto) Pending Eos % (Auto) Pending Baso % (Auto) Pending Absolute Neuts (auto) Pending Absolute Lymphs (auto) Pending Absolute Monos (auto) Pending Absolute Eos (auto) Pending Absolute Basos (auto) Pending Absolute Nucleated RBC Pending Nucleated RBC % Pending Result Diagrams: 09/13/17 14:49 09/13/17 14:49 Lab Statement: Any lab studies that have been ordered have been reviewed, and results considered in the medical decision making process. - Radiology CXR Xray Interpretation: No Acute Changes Radiology Interpretation Completed By: Radiologist - No active disease. Hyperinflation. This report was reviewed by ED physician. - CT CT abd/pel CT Interpretation Completed By: ED Physician - No obvious abnormality, no free air, bladder appears mildly distended. Large stool burden. Pending official report, see [employer] for results. - EKG 1440 Cardiac Rate: NL - Rate of 86 BPM. EKG Rhythm: Sinus Rhythm EKG Interpretation: ST depression in V4-V6 (unchanged). No STEMI. Re-Evaluation - Re-Evaluation First Eval Re-Evaluation Time: 15:26 Comment: Stool black and tarry Second Eval Re-Evaluation Time: 17:30 Comment: Daughter asked for someone to come in because pt has been experiencing LLQ pain for 3-4 weeks. She has a Hx of diverticulitis. Consider diverticular bleed. Chest Pain Course/Dx - Course Assessment/Plan: Pt is a 66 y/o F w/ c/o left anterior chest pain radiating down the left arm. She states that she has been experiencing this pain "for a long time" but worsened at 1300. On triage, pain was rated 8/10 but she denied the presence of any current pain in the room. Pt states that she has been on Xanax and morphine for three weeks. Pt's daughter who was present in the room states pt was "talking confusedly" and had difficulty forming thoughts when she visited the pt today. Pt denies BLE edema. At 1526, pt produced black and tarry stool. Bloodwork, EKG, and CXR were done. Hgb was 5.4 L, Lactic Acid 2.9 H. CXR was normal and EKG showed no acute processes. Consulted w/ Dr. Huerta at 1530, who recommended transfer because there is no emergency GI coverage this weekend. Discussed care of patient with [email or web address] [place] at 1620. They are trying to find a bed. At 1640, consulted w/ [email or web address] [place] again. [facility] ICU will accept pt w/ accepting physician being Dr. Garcia. Diagnosed w/ demand ischemic, unspecified chest pain, upper gi bleed, acute blood loss anemia and symptomatic anemia. Due to the demand ischemia I feel strongly that she requires all 4 units of packed red blood cells. She has ST depression on EKG and chest pain and now her second troponin was positive. - Diagnoses Provider Diagnoses: Demand ischemia, Nonspecific chest pain, Symptomatic anemia, Acute blood loss anemia, Upper GI bleed - Provider Notifications Discussed Care Of Patient With: Stuart Huerta Time Discussed With Above Provider: 15:30 Instructed by Provider To: Transfer - Dr. Huerta recommended transfer because there is no emergency GI coverage this weekend. Discussed care of patient with [email or web address] transfer center at 1620. They are trying to find a bed. At 1640, consulted w/ [email or web address] transfer center again. [facility] ICU will accept pt w/ accepting physician being Dr. Garcia. Updated [facility] of concern on diverticular bleed due to Hx of diverticulitis. - Critical Care Time Critical Care Time: 30-74 min - 60 minutes Discharge - Sign-Out/Discharge Documenting (check all that apply): Discharge/Admit/Transfer - Transfer - Discharge Plan Condition: Fair Disposition: TRANS HIGHER LVL OF CARE FAC Referrals: Claire Kelley MD [Primary Care Provider] - - Billing Disposition and Condition Condition: FAIR Disposition: Trans Higher Lvl of Care Fac The documentation as recorded by the Kia marte Jacob accurately reflects the service I personally performed and the decisions made by me, Amari Slaughter MD.
--- NOTE | 2017-09-13 18:46 | RAD ---
INDICATION: Chest pain. Post hysterectomy, oophorectomy, appendectomy, cholecystectomy. Previous urinary tract surgery. COMPARISON: November 27, [address] TECHNIQUE: Multidetector CT images were obtained from the lung bases to the ischial tuberosities with 74 mL Omnipaque 300 IV contrast. Multiplanar reformation. REPORT: Minimal dependent atelectasis at the lung bases. Post cholecystectomy. Negative for biliary dilatation. Unremarkable liver, pancreas, spleen. Negative for CT abnormality of the upper GI or small bowel. Post appendectomy. Moderate colonic diverticulosis without findings of acute diverticulitis. Negative for ascites or free air. Small fat-containing infraumbilical ventral hernia without inflammatory change. Normal adrenal glands. Unremarkable kidneys with symmetric nephrograms and pyelograms. Negative for hydronephrosis. Unremarkable nondilated ureters. Distended urinary bladder without suspicious CT finding. Post hysterectomy. Unremarkable adnexal regions. Negative for lymphadenopathy. Severe atherosclerotic plaque at the aortic bifurcation and iliac arteries with hemodynamic significant stenosis not excluded. Negative for abdominal aorta or iliac artery aneurysm. Negative for suspicious osseous lesions. IMPRESSION: #. 1. Colonic diverticulosis without findings of acute diverticulitis. 2. Significantly distended urinary bladder of uncertain etiology. Negative for hydronephrosis.
[2017-09-13 19:08] VITALS: BP 137/72
== END 2017-09-13 17:16 | disposition short-term general hospital (02) ==
LOC: ED 14:31
DX: I24.8 Other forms of acute ischemic heart disease (principal); R07.89 Other chest pain; D64.9 Anemia, unspecified; K92.2 Gastrointestinal hemorrhage, unspecified; Z86.79 Personal history of other diseases of the circulatory system; Z87.891 Personal history of nicotine dependence
CPT/HCPCS: 36415; 36430; 71045; 74177; 80053; 82272; 83605; 84484; 85025; 86850; 86900; 86901; 86922; 93005; 96374; 99285; A9270-GY; J0744; J3490; P9040; Q9967

== ENCOUNTER 2018-02-17 15:10 | Observation (INO) | payer MEDICARE ==
[2018-02-17 16:23] LABS: INR 0.91 (0.77-1.02)
[2018-02-17 16:26] LABS: ABS Basophils 0 10^3/ul (0-0.2); ABS Eosinophils 0.1 10^3/ul (0-0.6); ABS Lymphocytes 1.6 10^3/ul (1.0-4.8); ABS Monocytes 0.9 10^3/ul (0-0.8); ABS Neutrophils 4.7 10^3/ul (1.5-7.7); ABS Nucleated RBC 0 10^3/ul; Eosinophil % 1.4 %; Hematocrit 44 % (35-47); Lymphocyte % 21.9 %; Mean Corpuscular HGB Conc 34 g/dl (31-36); Mean Corpuscular Hemoglobin 31 pg (27-31); Mean Corpuscular Volume 91 fL (80-97); Mean Platelet Volume 8.5 fL (7.4-10.4); Nucleated Red Blood Cells % 0.1; Platelet Count 182 10^3/ul (150-450); Red Blood Count 4.84 10^6/ul (4.00-5.40); Red Cell Distribution Width 15 % (10.5-15); White Blood Count 7.4 10^3/ul (3.5-10.8)
[2018-02-17 16:39] LABS: EGFR Non-African American 75.9 (>60)
[2018-02-17] MEDS ORDERED: Labetalol IV* 5 MG/ML 20 ML VIAL IV PUSH ONE (19:49)
[2018-02-17] MEDS ORDERED: LORazepam INJ* 2 MG/ML 1 ML VIAL IV PUSH ONE (19:49)
--- NOTE | 2018-02-17 19:53 | ED ---
GI/ HPI - HPI Summary HPI Summary: This patient is a 67 year old female presenting to [facility] with a chief complaint of black stools since earlier today. Patient states that she had a hx of an internal bleed 6 months ago during the summer. She presents to the ED because she states that, for the past week and a half, she has felt weak and shaky, similar symptoms as her previous bleed. Today, she also noticed black diarrhea, and decided to come to the ED. Patient denies any abd pain. Symptoms aggravated by nothing. Symptoms alleviated by nothing. Patient denies vomiting, pain. Patient states that she has been taking her blood pressure medication regularly. - History of Current Complaint Chief Complaint: EDGIBleed Time Seen by Provider: 02/17/18 19:36 Stated Complaint: WEAKNESS/BLACK STOOL Hx Obtained From: Patient Onset/Duration: Started Hours Ago, Still Present Timing: Constant Severity: Mild Pain Intensity: 0 Associated Signs and Symptoms: Positive: Negative - vomiting, abd pain Aggravating Factor(s): Nothing Alleviating Factor(s): Nothing - Additional Pertinent History Primary Care Physician: JIMMY - Allergy/Home Medications Allergies/Adverse Reactions: Allergies Allergy/AdvReac Type Severity Reaction Status Date / Time hydralazine Allergy Severe See Comment Verified 02/17/18 15:17 latex Allergy Blisters Verified 02/17/18 15:17 PMH/Surg Hx/FS Hx/Imm Hx Previously Healthy: No Endocrine/Hematology History: Denies: Hx Diabetes Cardiovascular History: Reports: Hx Angina, Hx Hypertension, Other Cardiovascular Problems/Disorders - angina Denies: Hx Congestive Heart Failure, Hx Pacemaker/ICD Respiratory History: Reports: Hx Asthma, Hx Chronic Obstructive Pulmonary Disease (COPD) GI History: Reports: Other GI Disorders - DIVERTICULITIS History: Reports: Hx Kidney Infection, Other Problems/Disorders - HX MILD RENAL INSUFFICIENCY Denies: Hx Renal Disease Musculoskeletal History: Reports: Other Musculoskeletal History - RHEUMATOID ARTHRITIS Sensory History: Denies: Hx Contacts or Glasses, Hx Legally Blind, Hx Deafness, Hx Hearing Aid Opthamlomology History: Denies: Hx Contacts or Glasses, Hx Legally Blind Neurological History: Reports: Hx Transient Ischemic Attacks (TIA) - current dx Psychiatric History: Denies: Hx Panic Disorder - Cancer History Cancer Type, Location and Year: skin on finger--removed - Surgical History Surgery Procedure, Year, and Place: HYSTERECTOMY, OOPHRECTOMY, APENDECTOMY, CHOLECYSTECTOMY,TONSILECTOMY,URINARY TRACT SURGERY Hx Anesthesia Reactions: No - Immunization History Date of Tetanus Vaccine: current Date of Influenza Vaccine: 2016 Infectious Disease History: No Infectious Disease History: Denies: Traveled Outside the [place] in Last 30 Days - Family History Known Family History: Positive: Cardiac Disease, Hypertension, Diabetes, Respiratory Disease - COPD, Other - stroke - Social History Alcohol Use: Occasionally Alcohol Amount: 3 drinks every so often Hx Substance Use: No Substance Use Type: Reports: None Hx Tobacco Use: Yes Smoking Status (MU): Former Smoker Type: Cigarettes Length of Time of Smoking/Using Tobacco: 50 years Have You Smoked in the Last Year: Yes Review of Systems Negative: Fever Positive: Diarrhea, Other - black diarrhea. Negative: Abdominal Pain, Vomiting All Other Systems Reviewed And Are Negative: Yes Physical Exam - Summary Physical Exam Summary: VITAL SIGNS: Reviewed. GENERAL: Patient is a well-developed and nourished female who is lying comfortable in the stretcher. Patient is not in any acute respiratory distress. HEAD AND FACE: No signs of trauma. No ecchymosis, hematomas or skull depressions. No sinus tenderness. EYES: PERRLA, EOMI x 2, No injected conjunctiva, no nystagmus. EARS: Hearing grossly intact. Ear canals and tympanic membranes are within normal limits. MOUTH: Oropharynx within normal limits. NECK: Supple, trachea is midline, no adenopathy, no JVD, no carotid bruit, no c- spine tenderness, neck with full ROM. CHEST: Symmetric, no tenderness at palpation LUNGS: Clear to auscultation bilaterally. No wheezing or crackles. CVS: Regular rate and rhythm, S1 and S2 present, no murmurs or gallops appreciated. ABDOMEN: Soft, non-tender. No signs of distention. No rebound no guarding, and no masses palpated. Bowel sounds are normal. EXTREMITIES: FROM in all major joints, no edema, no cyanosis or clubbing. NEURO: Alert and oriented x 3. No acute neurological deficits. Speech is normal and follows commands. RECTAL: No masses, no external hemorrhoids, black stool sent for occult blood test SKIN: Dry and warm Triage Information Reviewed: Yes Vital Signs On Initial Exam: Initial Vitals Temp Pulse Resp BP Pulse Ox 97.6 F 94 16 148/84 99 12/03/18 15:14 02/17/18 15:14 02/17/18 15:14 02/17/18 15:14 02/17/18 15:14 Vital Signs Reviewed: Yes Diagnostics - Vital Signs Vital Signs Temp Pulse Resp BP Pulse Ox 02/17/18 17:27 97.8 F 74 16 172/98 98 02/17/18 15:14 97.6 F 94 16 148/84 99 - Laboratory Lab Results: Lab Results 02/17/18 02/17/18 02/17/18 Range/Units 15:56 15:56 15:56 WBC 7.4 (3.5-10.8) 10^3/ul RBC 4.84 (4.00-5.40) 10^6/ul Hgb 15.0 (12.0-16.0) g/dl Hct 44 (35-47) % MCV 91 (80-97) fL MCH 31 (27-31) pg MCHC 34 (31-36) g/dl RDW 15 (10.5-15) % Plt Count 182 (150-450) 10^3/ul MPV 8.5 (7.4-10.4) fL Neut % (Auto) 63.9 % Lymph % (Auto) 21.9 % [facility] % (Auto) 12.4 % Eos % (Auto) 1.4 % Baso % (Auto) 0.4 % Absolute Neuts (auto) 4.7 (1.5-7.7) 10^3/ul Absolute Lymphs (auto) 1.6 (1.0-4.8) 10^3/ul Absolute Monos (auto) 0.9 H (0-0.8) 10^3/ul Absolute Eos (auto) 0.1 (0-0.6) 10^3/ul Absolute Basos (auto) 0 (0-0.2) 10^3/ul Absolute Nucleated RBC 0 10^3/ul Nucleated RBC % 0.1 INR (Anticoag Therapy) 0.91 (0.77-1.02) Sodium 140 (135-145) mmol/L Potassium 4.2 (3.5-5.0) mmol/L Chloride 105 (101-111) mmol/L Carbon Dioxide 30 (22-32) mmol/L Anion Gap 5 (2-11) mmol/L BUN 12 (6-24) mg/dL Creatinine 0.76 (0.51-0.95) mg/dL Est GFR ( Amer) 91.8 (>60) Est GFR (Non-Af Amer) 75.9 (>60) BUN/Creatinine Ratio 15.8 (8-20) Glucose 98 (70-100) mg/dL Calcium 10.4 H (8.6-10.3) mg/dL Total Bilirubin 0.60 (0.2-1.0) mg/dL AST 27 (13-39) U/L ALT 19 (7-52) U/L Alkaline Phosphatase 82 (34-104) U/L C-Reactive Protein 3.58 (<8.01) mg/L Total Protein 7.3 (6.4-8.9) g/dL Albumin 4.7 (3.2-5.2) g/dL Globulin 2.6 (2-4) g/dL Albumin/Globulin Ratio 1.8 (1-3) Result Diagrams: 02/17/18 15:56 02/17/18 15:56 Lab Statement: Any lab studies that have been ordered have been reviewed, and results considered in the medical decision making process. - EKG 2038 Cardiac Rate: NL EKG Rhythm: Sinus Rhythm - 75 BPM Summary of EKG Findings: An EKG, taken 2038, reveals NSR (75 BPM), Normal axis. Normal interval. No ischemic changes GIGU Course/Dx - Course Assessment/Plan: This patient is a 67 year old female presenting to [facility] with a chief complaint of black stools since earlier today. Patient states that she had a hx of an internal bleed 6 months ago during the summer. She presents to the ED because she states that, for the past week and a half, she has felt weak and shaky, similar symptoms as her previous bleed. Today, she also noticed black diarrhea, and decided to come to the ED. Patient denies any abd pain. Symptoms aggravated by nothing. Symptoms alleviated by nothing. Patient denies vomiting pain. Patient states that she has been taking her blood pressure medication regularly. An EKG, taken 2038, reveals NSR (75 BPM), Normal axis. Normal interval. No ischemic changes. Bloodwork Obtained. In the ED course the patient was given Ativan, Protonix, Trandate. Patient is hemodynamically stable. Stool occult blood test came out positive. We discussed patient care with Dr. Oseguera (Hospitalist) at 2036, who states that she will accept the patient. Patient will be admitted with a hx of upper GI bleed and HTN. The patient is agreeable with this plan. - Diagnoses Provider Diagnoses: Upper GI bleed, Hypertension - Physician Notifications Discussed Care Of Patient With: Yissel Oseguera - Hospitalist Time Discussed With Above Provider: 20:37 - We discussed patient care with Dr. Oseguera (Hospitalist), who states that she will accept the patient. Instructed by Provider To: Admit As Inpatient Discharge - Sign-Out/Discharge Documenting (check all that apply): Patient Departure - Discharge Plan Condition: Stable Disposition: ADMITTED TO [facility] Referrals: Claire Kelley MD [Primary Care Provider] - - Attestation Statements Document Initiated by Kevin: Yes Documenting Scribe: Silvano Balderas Provider For Whom Kevin is Documenting (Include Credential): Conner Zimmerman MD Scribe Attestation: Silvano Alvarado scribed for Conner Zimmerman MD on 02/17/18 at 2049. Status of Scribe Document: Ready
[2018-02-17] MEDS ORDERED: Pantoprazole IV* 40 MG IV ONE (20:30)
[2018-02-17] MEDS ORDERED: Pantoprazole* 80 mg IN NS 80 MG/250 ML BAG IVPB ONE (20:30)
[2018-02-17] MEDS ORDERED: Ondansetron INJ* 2 MG/ML VIAL IV PRN (21:00)
[2018-02-17] MEDS ORDERED: Magnesium Hydroxide LIQ* 30 ML UDC PO PRN (21:00)
[2018-02-17] MEDS ORDERED: Acetaminophen TAB* 325 MG PO PRN (21:00)
[2018-02-17] MEDS ORDERED: Al Hydrox/Mg Hydrox/Simet LIQ* 30 ML UDC PO PRN (21:00)
[2018-02-17] MEDS ORDERED: NS 0.9% 1000 ML* 1,000 ML IV SCH (21:00)
[2018-02-17] MEDS ORDERED: Nicotine Inhaler* 10 MG AMP INH PRN (21:02)
[2018-02-17] MEDS ORDERED: hydrOXYzine HCL TAB* 25 MG PO PRN (21:05)
[2018-02-17] MEDS ORDERED: Spiriva Inhaler DEVICE* 1 EACH DEVICE SCH (22:00)
[2018-02-17] MEDS ORDERED: Spiriva Inhaler DEVICE* 1 EACH DEVICE INH SCH (22:00)
[2018-02-17] MEDS: Metoprolol Succinate XL TAB* 50 MG PO SCH (23:06)
[2018-02-17] MEDS: amLODIPine TAB* 5 MG PO SCH (23:06)
[2018-02-17] MEDS: Nicotine PATCH 21 MG/24 HR* PATCH TRANSDERM SCH (23:06)
[2018-02-18 00:42] LABS: Hematocrit 41 % (35-47); Hemoglobin 13.9 g/dl (12.0-16.0)
[2018-02-18] MEDS: Mometasone/Formoter 200/5 MDI INH SCH ×3 (00:57→19:38)
[2018-02-18] MEDS: Albuterol HFA INHALER* 8 gm MDI INH SCH ×3 (00:57→08:55)
--- NOTE | 2018-02-18 04:17 | HP ---
CC: Claire Kelley MD.* HISTORY AND PHYSICAL: DATE OF ADMISSION: 02/17/18. TIME OF EVALUATION: 2100. PRIMARY CARE PHYSICIAN: Claire Kelley MD. CHIEF COMPLAINT: Black, watery stools. HISTORY OF PRESENT ILLNESS: This is a 67-year-old female with past medical history of GI bleed in August, COPD, and tobacco use presents to the emergency room with acute onset of black watery stools. The patient states that for the last few weeks she has been feeling weak, lightheaded and dizziness and her legs feel weak all the time. She denies any falls. No chest pain. She states she is chronically short of breath that is not worse. She was more short of breath and coughing more, but that improved over the past 2 days. This afternoon, she developed 2 episodes of black watery stools with cramping at that time. No further abdominal pain. No urinary symptoms. No fevers. Normally, she is usually constipated. She denies any Pepto-Bismol over-the- counter use. No nausea or vomiting. She is still smoking. She is trying to cut back. She is less than a pack a day, but a chronic smoker for over 50 years. Back in August, she had a GI bleed at that time. She was on Brilinta and aspirin. She would shift to [facility] because there was no GI coverage here at [facility]. She states they did an upper and lower scope a few days after her admission and they did not find the source, but they stopped her Brilinta at that time. Since then, she has only been on a baby aspirin and has not had any black stools or bright red blood per rectum until today. Her rectal exam in the emergency room they did was positive for melena. Otherwise, review of system is negative. Also of note, the patient states she chronically wheezes. She says she does not take her medications all the time according to prescription because of trying to spread them out because she is not able to afford them as prescribed. Also, she was given a proton pump inhibitor when she was discharged from [facility], but she stopped taking that as well. In the emergency room, the patient had labs. She was given Protonix 80 mg, started on a drip, Ativan 1 mg, and labetalol 20 mg and referred to the hospitalist service for further evaluation. PAST MEDICAL HISTORY: 1. History of GI bleed back in August 2017. Brilinta stopped at that time. Unclear of the source, suspected upper. 2. History of hypoxic respiratory failure. 3. COPD, on room air. 4. Anxiety. 5. Tobacco use. 6. History of SD/coronary artery disease. 7. Hypertension. 8. Hyperlipidemia. 9. History of CVA. 10. History of left carotid artery disease, status post stenting. 11. History of diverticulosis. 12. History of esophageal candidiasis. MEDICATIONS: 1. Tylenol 325 mg as needed. 2. Rajani 180 mg as needed. 3. Amlodipine 5 mg p.o. daily. 4. Aspirin 81 mg p.o. daily. 5. Fluticasone salmeterol 500/50 mcg inhaled b.i.d. 6. Hydroxyzine 25 mg every 6 hours as needed for itching. 7. Metoprolol succinate 50 mg p.o. daily. 8. Multivitamin daily. 9. Nicotine patch 21 mg per 24 hours daily. 10. Hooker-3 fatty acids. 11. Pitavastatin 1 mg p.o. daily. 12. Spiriva inhaler 18 mcg daily. 13. Albuterol 2 puffs every 4 hours as needed for shortness of breath. ALLERGIES: HYDRALAZINE and LATEX. FAMILY HISTORY: Mother at age 93 from old age. Father from COPD and complications related to peritonitis at age 75. SOCIAL HISTORY: The patient lives alone. As mentioned, she is trying to cut back smoking, but still actively smoking, less than a pack per day for more than 50 years. She drinks 2 glasses 5 times a week of alcohol. No illicit drugs. She is independent of her ADLs. Her healthcare proxy is her daughter, Adela Mack. Code status full code. REVIEW OF SYSTEMS: A 14-point review of systems is as mentioned in the HPI, otherwise negative. PHYSICAL EXAMINATION GENERAL: No acute distress, resting comfortably. VITALS: Temp 97.8, pulse rate 79, respiratory rate 19, oxygen saturation 98% on room air, and blood pressure 217/95. HEENT: Head normocephalic. Pupils are equal and reactive. Oropharynx: Mucous membranes are moist. NECK: Supple. No lymphadenopathy. RESPIRATORY: Diminished breath sounds, bilateral expiratory wheezing. No increased work of breathing. CARDIAC: Regular rate and rhythm. Systolic murmur, most prominent at the left sternal base. ABDOMEN: Soft, nontender, positive bowel sounds, and nondistended. EXTREMITIES: No clubbing, cyanosis, or edema. NEUROLOGIC: Alert and oriented x3. No gross focal neurologic deficits. LABORATORY DATA: White count 7.4, hemoglobin 15, hematocrit 44, platelets 182. INR is 0.91. Sodium 140, potassium 4.2, chloride 105, bicarb 30, BUN 12, creatinine 0.76, calcium 10.4. RADIOGRAPHIC DATA: EKG, normal sinus rhythm. No specific ST changes. ASSESSMENT: This is a 67-year-old female with past medical history of tobacco use, aspirin use, and recent gastrointestinal bleed, who presents to the emergency room with black tarry stools. Black watery stools: Concerning for an upper gastrointestinal bleed with her smoking history, on baby aspirin, and no PPI. Although, her H and H and BUN are normal, I suspect she is hemoconcentrated. Her H and H is the highest it has been in the past few years. Her abdominal exam is benign. I did talk with Dr. Huerta regarding repeating her EGD, which he states will most likely will occur. PLAN: We will admit her for observation, trend her H and H, continue her on a PPI drip, clear liquid diet, hold her baby aspirin for now. We will obtain records from [facility] from back in August. CHRONIC MEDICAL PROBLEMS: COPD: The patient is actively wheezing, but no respiratory distress. She states she wheezes her baseline and her shortness of breath and cough have improved. We will continue albuterol schedule every 4 hours while awake, continue her remaining inhalers. We will contact social work to help with prescriptions that may be more affordable for her that she can take more routinely. Hypertension: We will resume her amlodipine and her metoprolol this evening in the setting of her elevated blood pressure and monitor this closely. Hyperlipidemia: Continue her pitavastatin. FEN: As mentioned, clear liquid diet and IV fluids. DVT prophylaxis: The patient scores high risk. We will place her on SCDs in the setting of GI bleed. Code status: Full code. PATIENT TIME: Greater than 50 minutes was spent doing the history and physical , more than half of the time spent in direct patient contact. [id number]/[facility] #: [id number] [facility]
[2018-02-18 06:37] LABS: ABS Basophils 0 10^3/ul (0-0.2); ABS Eosinophils 0.2 10^3/ul (0-0.6); ABS Lymphocytes 1.3 10^3/ul (1.0-4.8); ABS Monocytes 0.6 10^3/ul (0-0.8); ABS Neutrophils 2.6 10^3/ul (1.5-7.7); ABS Nucleated RBC 0 10^3/ul; Eosinophil % 3.9 %; Hematocrit 40 % (35-47); Hemoglobin 13.6 g/dl (12.0-16.0); Mean Corpuscular HGB Conc 34 g/dl (31-36); Mean Corpuscular Hemoglobin 31 pg (27-31); Mean Corpuscular Volume 92 fL (80-97); Mean Platelet Volume 8.2 fL (7.4-10.4); Nucleated Red Blood Cells % 0.1; Platelet Count 160 10^3/ul (150-450); Red Cell Distribution Width 15 % (10.5-15); White Blood Count 4.7 10^3/ul (3.5-10.8)
[2018-02-18 06:59] LABS: EGFR Non-African American 83.5 (>60)
[2018-02-18] MEDS: Pantoprazole* 80 mg IN NS 80 MG/250 ML BAG IVPB SCH ×2 (07:58→15:05)
[2018-02-18] MEDS: Nicotine PATCH 21 MG/24 HR* PATCH TRANSDERM SCH (08:00)
[2018-02-18] MEDS: amLODIPine TAB* 5 MG PO SCH (08:01)
[2018-02-18] MEDS: Metoprolol Succinate XL TAB* 50 MG PO SCH (08:01)
[2018-02-18] MEDS: Tiotropium CAP.INH* CAP.INH/18 MCG (USE ORDER SET !) INH SCH (08:54)
[2018-02-18] MEDS ORDERED: fentaNYL* 50 MCG/ML 2 ML VIAL (100 MCG VIAL) ONE (12:00)
[2018-02-18] MEDS ORDERED: Midazolam* 1 MG/ML 10 ML VIAL (10 MG) ONE (12:00)
[2018-02-18] MEDS ORDERED: Pitavastatin (NF) 1 MG TAB PO SCH (17:00)
--- NOTE | 2018-02-18 17:38 | PN ---
Subjective Date of Service: 02/18/18 Interval History: HOSPITALIST PROGRESS NOTE Patient seen and examined at bedside. Care reviewed and d/w Laisha Munoz RN. She feels better today, denies abdominal pain, N/V, no further BMs. Feels hungry. Family History: Unchanged from Admission Social History: Unchanged from Admission Past Medical History: Unchanged from Admission Objective Active Medications: Acetaminophen (Tylenol Tab*) 650 mg PO Q4H PRN PRN Reason: FEVER/PAIN Al Hydrox/Mg Hydrox/Simethicone (Maalox Plus*) 30 ml PO Q6H PRN PRN Reason: INDIGESTION Albuterol (Ventolin Hfa Inhaler*) 2 puff INH Q2H PRN PRN Reason: SOB/WHEEZING Amlodipine Besylate (Norvasc Tab*) 5 mg PO DAILY [facility] Last Admin: 02/18/18 08:01 Dose: 5 mg Device (Tiotropium Inhaler Device*) 1 each .SEE ORDER .USE w/ SPIRIVA CAPS [facility] Hydroxyzine HCl (Atarax Tab*) 25 mg PO Q6H PRN PRN Reason: itching Pantoprazole Sodium (Protonix Iv Bag*) 80 mg in 250 mls @ 25 mls/hr IVPB Q10H [facility] Last Admin: 02/18/18 15:05 Dose: Not Given Sodium Chloride (Ns 0.9% 1000 Ml*) 1,000 mls @ 125 mls/hr IV PER RATE [facility] Last Admin: 02/18/18 07:58 Dose: 125 mls/hr Magnesium Hydroxide (Milk Of Magnesia Liq*) 30 ml PO Q4H PRN PRN Reason: CONSTIPATION Metoprolol Succinate (Toprol Xl Tab*) 50 mg PO DAILY [facility] Last Admin: 02/18/18 08:01 Dose: 50 mg Mometasone Furoate/Formoterol Fumar (Dulera 200/5 Mdi*) 1 puff INH BID [facility] Last Admin: 02/18/18 08:54 Dose: 1 puff Nicotine (Nicotine Inhaler*) 10 mg INH Q2H PRN PRN Reason: CRAVING Nicotine (Nicotine Patch 21 Mg/24 Hr*) 1 patch TRANSDERM DAILY [facility] Last Admin: 02/18/18 08:00 Dose: 1 patch Ondansetron HCl (Zofran Inj*) 4 mg IV Q4H PRN PRN Reason: NAUSEA/VOMITING Pharmacy Profile Note (Nicotine Patch Removal Note*) 1 note PATCH OFF 2200 [facility] Pitavastatin (Livalo (Nf)) 1 mg PO 1700 [facility] Last Admin: 02/18/18 15:36 Dose: Not Given Tiotropium Jewett (Spiriva Cap.Inh*) 1 cap INH DAILY [facility] Last Admin: 02/18/18 08:54 Dose: 1 cap Vital Signs - 8 hr 02/18/18 02/18/18 02/18/18 11:12 15:03 15:07 Temperature 97.9 F 97.5 F 97.9 F Pulse Rate 73 70 73 Respiratory 16 16 16 Rate Blood Pressure 137/69 136/66 116/59 (mmHg) O2 Sat by Pulse 97 98 99 Oximetry Oxygen Devices in Use Now: None Appearance: Pleasant elderly lady lying in bed in NAD. Eyes: No Scleral Icterus Ears/Nose/Mouth/Throat: Mucous Membranes Moist, - - Facial telangiectasis Neck: Trachea Midline Respiratory: Symmetrical Chest Expansion and Respiratory Effort, Clear to Auscultation Cardiovascular: RRR - Normal S1 and S2 Abdominal: NL Sounds; No Tenderness; No Distention Extremities: No Edema Neurological: Alert and Oriented x 3, NL Muscle Strength and Tone Result Diagrams: 02/18/18 06:13 02/18/18 06:13 Assess/Plan/Problems-Billing Assessment: Mrs Sanders is a 67yo F with PMH of COPD, tobacco abuse, ETOH use, CAD, HTN, HLD, PVD s/p left carotid stent, CVA, diverticulosis, admission to [facility] in 09/02 for GI bleed with no source found, who presents to ED with c/o black stools, suspicious for UGI bleed. - Patient Problems (1) Upper GI bleed Comment: - EGD showed gastric erythema, duodenal AVMs, but no source of bleeding. - D/w GI - recommended Omeprazole 20mg/day and f/u as outpatient. - With her h/o alcohol use, gastric erythema, there's a possibility of liver disease causing portal hypertensive gastropathy - check liver US. (2) COPD (chronic obstructive pulmonary disease) Comment: - Stable. - Continue bronchodilators and inhaled steroids. (3) Hypertension Comment: - Controlled. - Continue Amlodipine and Metoprolol. (4) DVT prophylaxis Comment: - SCDs. (5) Full code status Status and Disposition: Anticipate d/c in AM.
[2018-02-18] MEDS ORDERED: Omeprazole CAP* 20 MG PO ONE (19:30)
[2018-02-18] MEDS: PTO:Albuterol HFA INHALER* 8 gm MDI INH PRN (19:38)
[2018-02-18] MEDS ORDERED: Nicotine Patch Removal NOTE PATCH OFF SCH (22:00)
--- NOTE | 2018-02-19 01:42 | CONS ---
GASTROENTEROLOGY CONSULT: DATE OF CONSULT: 02/18/18 CONSULTING PHYSICIAN: Claire Kelley; Abby Acosta REASON FOR CONSULTATION: Black loose stool beginning yesterday after feeling tired for about 10 days - history obtained from patient, old charts and her daughter, who lives in [place]. HISTORY OF PRESENT ILLNESS: This 67-year-old woman with a history of cerebrovascular disease status post stenting at [facility] in March 2017 has a history of COPD, still smoking and she also drinks vodka and water couple of times a day. Yesterday, she noted loose black stool and had been aware that that was a sign of GI bleeding. She came to the emergency room and was hemodynamically stable with a hemoglobin of 15, BUN 12, platelets 182, had INR 0.91. Digital rectal was remarkable for dark stool that was heme positive. Because of the concerns about this being a repetition of what she had experienced in August when she was seen in the emergency room with a hemoglobin of 5.4 and later worked up at [facility] (see below), she was admitted. At this time, she is taking low-dose aspirin and a multivitamin with low dose iron. She is also on COPD medications. Her daughter supplements the history by stating after the [facility] hospitalization this past summer, no definitive answer for her bleeding was offered. That hospitalization had followed a stay in rehab at [facility] following a 2-week hospitalization for COPD exacerbation beginning 08/18/17. PAST MEDICAL HISTORY: 1. Tobacco abuse - ongoing. 2. COPD. 3. Status post hyterectomy - 1978. 4. Oopherectomy - separate procedure. 5. Incidental appendectomy. 6. Status post multiple TIAs and CVAs. 7. Left carotid stenting. 8. Coronary artery disease - [place] in 1999 with cardiac catheterization at [facility], though no stenting. 9. GI bleeding event - on 09/13/17, she was transferred to [facility] with a hemoglobin of 5.4. At that time, she appeared hemodynamically stable and the notes there say her stool was loose and green. Hemoccult result at [facility] is not in the referral records. Her BUN then was 12. She had been transfused 4 units of blood in the [facility] ER and her presenting hemoglobin at [facility] was 11, hematocrit 30.3. where the admitting MD wondered if this reflected somewhat of a lab error at [facility]. She had upper endoscopy showing mild gastritis and then colonoscopy where 3 small tubular adenomas were removed with snare cautery. Diverticulosis was also seen. All these procedures were done after Brilinta had been held and then Brilinta was not continued. She was sent home on iron and Protonix 40 mg, which after a month. The discharge summary states that the probable source of bleeding was colonic, although how that was concluded is not clear. It appears to have been an inference. No cause for bleeding was felt to be present in the upper GI tract. Her stomach was said to be normal. There was a nonobstructing Schatzki ring. 10. Cholecystectomy, 2011. FAMILY HISTORY: Her sister of pancreatic cancer, November 2016. SOCIAL HISTORY: She is retired from [employer]. Her 4 years ago. Her daughter, Nafisa Mack, lives in [place] and works with [employer]. REVIEW OF SYSTEMS: No history of recent seizure, syncope, CVA, fall, fracture, chest pain. She has a regular bowel pattern. She says her appetite is good and weight steady. PHYSICAL EXAM: She is an older woman with smoker's voice and complexion. HEENT exam is unremarkable. She has no adenopathy. Lungs are clear with diminished breath sounds. Heart sounds are regular. The abdomen is mildly rounded, firm without focal finding. Rectal done in the ER. Extremities show no edema. DIAGNOSTIC STUDIES/LAB DATA: Overnight hemoglobin has fallen from 15.0 to 13.6 , white count 4.7 and BUN continued down to 10. LFTs are normal with ALT 19 consistent with 20 values tracking backing to July 2010. Albumin is 4.7 in comparison to 3.1 09/13/17. Chest x-ray - stigmata of chronic obstructive pulmonary disease. Abdominal and pelvic CT 09/13/17 - no sign of acute inflammation. IMPRESSION: This 67-year-old woman comes to the emergency room concerned that she is having an episode of GI bleeding. She certainly appears to be a good observer and has no reason to amplify her complaints. On the other hand, there is not a good fit with her complaining of black stool and having hemoglobin of 15 then even after an overnight hydration of 13.6. Nonetheless, her stool is heme positive. This presentation is 6 months after her presentation when she was on Brilinta as well as aspirin. At that time, the [facility] records say she was bruised all over her body and it was wondered if she conceivably could have had a more diffuse bleeding during physical therapy while taking Brilinta. Nonetheless, her Hemoccult in the emergency room on 09/13/17 here was positive. All told, it seems to best to try to get some more information with this presentation and gastroscopy is planned. She may very well go home without a definitive answer but taking a prophylactic dose of a PPI because of the need for ongoing aspirin would be reasonable. Her alcohol intake per history is of some concern and that will be addressed also. [id number]/[facility] #: [id number] MTDD
[2018-02-19 06:10] LABS: Hematocrit 42 % (35-47); Hemoglobin 14.2 g/dl (12.0-16.0)
[2018-02-19] MEDS ORDERED: Omeprazole CAP* 20 MG PO SCH (07:30)
[2018-02-19] MEDS: Mometasone/Formoter 200/5 MDI INH SCH (07:54)
[2018-02-19] MEDS: PTO:Albuterol HFA INHALER* 8 gm MDI INH PRN (07:55)
[2018-02-19] MEDS: Tiotropium CAP.INH* CAP.INH/18 MCG (USE ORDER SET !) INH SCH (07:55)
[2018-02-19 08:06] VITALS: BP 151/83
--- NOTE | 2018-02-19 09:29 | PRO ---
DATE: 02/18/18 - ROOM #[id number] REFERRING PHYSICIAN: Dr. Claire Kelley.* PROCEDURE: Upper gastrointestinal endoscopy and CLOtest and BICAP small duodenal AVMs. INDICATION: This 67-year-old woman came to the emergency room complaining of loose black stool and had a positive Hemoccult. Her hemoglobin was 15.0, MCV 91 , platelets 160 and INR 0.91, BUN 12. Because she had had a prior presentation with severe anemia, hemoglobin 5.4 on 09/13/17, she was admitted. She has had no further stools over-night. Her hemoglobin has fallen to 13.6 and BUN to 10. She has no abdominal pain. Informed consent was obtained and the patient desired more information and to undergo upper endoscopy. ENDOSCOPIST: Dr. Huerta. MEDICATIONS: Midazolam 9, fentanyl 100. FINDINGS: She is a somewhat chronically ill-appearing older woman, in no overt distress. Her abdomen is symmetric, somewhat firm with normal bowel sounds. She was positioned left side down and moderate sedation induced with sequential doses of midazolam and fentanyl. EGD: Larynx - symmetric, limited views. Esophagus - easily entered and the mucosa is normal in the upper, mid, and lower esophagus with the EG junction snug at 40 cm. There are no erosions and no Vincent's change. Stomach - seems to be a mild diffuse erythema and a mild granular appearance to the mucosa. The rugal folds are normal. No polyps were seen. In the distal antrum, there is more intense patchy erythema with no actual erosions and no bleeding. Appearance is nonspecific, but could be consistent with NSAID effect. Duodenum - pylorus and proximal bulb are normal. There is a focal erythematous 6 to 7-mm nodule consistent with a Mehrdad's gland, prominence at the apex of the bulb. No bleeding is seen and there is no mucosal break over this lesion. In the second through fourth portions of the duodenum, there are 2 to 4 2-mm erythematous spots consistent with small low-risk AVMs. Given the clinical circumstance of somewhat mysterious bleeding of undocumented source, these were BICAPed with a probe at 20 burr. No bleeding was induced. A second look in the duodenal bulb did not show any peptic lesion, but there was confirmed perception of minimal gastric punctate erythema leading to the question of trying to document portal pressure. A CLOtest was taken from a gastric biopsy. IMPRESSION: 1. Diffuse gastric erythema - liver ultrasound pending. 2. Gastritis - prepyloric aspect consistent with aspirin. 3. Mehrdad's gland hypertrophy - to be rechecked at a followup EGD. 4. 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 5. Black stool and heme-positive confirmed - would continue aspirin 81 mg and start a PPI, omeprazole 20 mg in the morning and then followup in 10 to 14 days. All of this was communicated to the patient's daughter at the patient's request (Nafisa Mack [phone]). We will attempt to be with her for the followup. [id number]/[facility] #: [id number] [facility]
[2018-02-19] MEDS: Metoprolol Succinate XL TAB* 50 MG PO SCH (09:39)
[2018-02-19] MEDS: amLODIPine TAB* 5 MG PO SCH (09:39)
[2018-02-19] MEDS: Nicotine PATCH 21 MG/24 HR* PATCH TRANSDERM SCH (09:48)
--- NOTE | 2018-02-20 08:36 | DS ---
CC: Dr. Kelley; Dr. Stuart Huerta DISCHARGE SUMMARY: DATE OF ADMISSION: 02/19/18 DATE OF DISCHARGE: 02/20/18 PRIMARY CARE PROVIDER: Dr. Kelley. CONSULTING BIG DATA ENGINEER: Dr. Stuart Huerta. DISCHARGE DIAGNOSIS: Possible upper gastrointestinal bleed. SECONDARY DIAGNOSES: 1. History of gastrointestinal bleed of unclear source in August 2017. 2. Chronic obstructive pulmonary disease. 3. Anxiety. 4. Tobacco use. 5. Coronary artery disease. 6. Hypertension. 7. Hyperlipidemia. 8. History of cerebrovascular accident. 9. Left carotid stenosis, status post stenting. 10. Diverticulosis. 11. History of esophageal candidiasis. MEDICATION LIST: 1. Acetaminophen 650 mg p.o. q.4 hours p.r.n. pain or fever. 2. Albuterol HFA 2 puffs inhaled q.4 hours p.r.n. shortness of breath and wheezing. 3. Amlodipine 10 mg p.o. daily. 4. Aspirin 81 mg p.o. daily. 5. Rajani 180 mg p.o. daily as needed for allergies. 6. Advair 500/50 one puff inhaled b.i.d. 7. Hydroxyzine 25 mg p.o. q.6 hours as needed for itching. 8. Metoprolol succinate 50 mg p.o. daily. 9. Multivitamin 1 tablet p.o. daily. 10. Nicotine patch 21 mg topical daily. 11. Fish oil 2 capsules p.o. daily. 12. Spiriva 1 capsule inhaled daily. New medications: Omeprazole 20 mg p.o. daily at 7:30 a.m. HOSPITAL COURSE: Ms. Sanders is a 67-year-old lady with a past medical history as stated above that presented to the emergency room with complaints of black watery stools. In August 2017, the patient presented with a GI bleed and was transferred to [facility]. Records were obtained and upper and lower endoscopies are failed to show a source. She did have esophageal candidiasis and was treated with fluconazole and pantoprazole, but the PPI was later on discontinued. At this time, she presented to the emergency room with complaints of weakness and black stools. For more details about presentation, I refer you to her history and physical. The impression on admission was that she could have another episode of upper GI bleed, but she did have hemoglobin that remained stable around 14 to 15. Her BUN was normal, but her stool for occult blood was positive. The patient was started on a PPI drip and admitted for further evaluation. She was seen in consultation by Gastroenterology (Dr. Huerta) and she had an upper endoscopy that showed diffuse gastric erythema, gastritis in the prepyloric aspect, compatible with aspirin use, Mehrdad's gland hypertrophy, duodenal AVMs of small and low risk, and his recommendation was to continue aspirin and to resume a PPI, omeprazole 10 mg in the morning and follow up with him in 10 to 14 days. The patient does drink alcohol and it is difficult to pinpoint exactly how much, but apparently anywhere from 7 to 10 drinks a week. She does have facial telangiectasias and with the findings on her endoscopy, the patient underwent a liver ultrasound that showed status post cholecystectomy with coarse hepatic echotexture, similar to her prior ultrasound from April 2011 with no sonographic stigmata of cirrhosis and normal portal venous blood flow. The patient was advised about the risks of alcohol intake, especially in females. I explained the concern for liver disease and the patient verbalized understanding and states that she will try to quit. She did not have any signs of alcohol withdrawal while in the hospital. It is unclear if her black diarrhea was actually a GI bleed as her H and H remained stable and BUN was normal. Her positive stool could have a lower source in the GI tract. On the day of discharge, the patient felt much improved and was anxious for discharge. She received education about GI bleed, tobacco and alcohol use and she is aware that she needs to continue the omeprazole and to follow up with Dr. Huerta as outpatient. PHYSICAL EXAMINATION: Vital Signs: Temperature 97.7, heart rate is 72, respiratory rate is 14, oxygen saturation is 98% on room air, blood pressure is 151/83. General: The patient is a pleasant elderly lady, sitting up in bed, in no acute distress, wearing street clothes. HEENT: Pupils are equal. Moist mucous membranes. Facial telangiectasias. CVS: Normal S1, S2. Regular rate and rhythm. Chest: Breath sounds present bilaterally with no added sounds. Abdomen is soft. Bowel sounds are present. Extremities: No edema. Neuro: She is alert, awake, oriented x3. Able to move all 4 extremities. DIET: Heart healthy diet. ACTIVITIES: As tolerated. DISPOSITION: To home. STATUS WHILE IN THE HOSPITAL: Observation. Please keep in mind that this is a summarized version of this patient's hospital stay. If you need more information, please feel free to call me at [phone] or please obtain the full medical records. TIME SPENT: Approximately 45 minutes was spent to complete this discharge. [id number]/[facility] #: [id number] MTDD
== END 2018-02-19 11:35 | disposition home or self-care (01) ==
LOC: ED 15:10 → MED 21:00
PROVIDERS: ADMIT Pediatrics; ATTEND Internal Medicine
DX: K92.2 Gastrointestinal hemorrhage, unspecified (principal); J44.9 Chronic obstructive pulmonary disease, unspecified; F41.9 Anxiety disorder, unspecified; Z72.0 Tobacco use; I25.10 Atherosclerotic heart disease of native coronary artery without angina pectoris; I10 Essential (primary) hypertension; E78.5 Hyperlipidemia, unspecified; Z86.73 Personal history of transient ischemic attack (TIA), and cerebral infarction without residual deficits; I65.22 Occlusion and stenosis of left carotid artery; Z95.5 Presence of coronary angioplasty implant and graft; K57.90 Diverticulosis of intestine, part unspecified, without perforation or abscess without bleeding; Z87.19 Personal history of other diseases of the digestive system; Z79.82 Long term (current) use of aspirin
CPT/HCPCS: 36415; 71046; 76705; 80048; 80053; 82270; 83735; 84443; 85014; 85018; 85025; 85610; 86140; 87077; 93005; 94640; 96361; 96372; 96374; 96375; 96376; 99156; 99157; 99284; A9270-GY; G0378; J2060; J2250; J3010

== ENCOUNTER 2018-05-04 02:54 | Inpatient (IN) | payer MEDICARE ==
[2018-05-04] MEDS ORDERED: Albuterol 0.5% CONC NEB.SOL* 5 MG/ML 20 ml BOT INH ONE (03:11)
[2018-05-04] MEDS ORDERED: methylPREDNISolone 125 MG* 2 ML VIAL IV ONE (03:11)
--- NOTE | 2018-05-04 03:21 | ED ---
Respiratory - HPI Summary HPI Summary: This patient is a 67 year old female presenting to [facility] with a chief complaint of wheezing four days ago. She saw her PCP and she was prescribed prednisone. Her dyspnea worsened [employer] so she came here for treatment. The patient denies fever. She has a Hx of COPD. - History of Current Complaint Chief Complaint: EDShortnessOfBreath Stated Complaint: DIFFICULTY BREATHING Time Seen by Provider: 05/04/18 03:09 Hx Obtained From: Patient Onset/Duration: Lasting Days Initial Severity: Mild Current Severity: Mild Pain Intensity: 0 Character: Wheezing Sputum Amount: None Alleviating Factor(s): Dose Of Medications - Prednisone - Risk Factors Status Asthmaticus Risk Factors: Smoking Tuberculosis Risk Factors: Smoking - Allergy/Home Medications Allergies/Adverse Reactions: Allergies Allergy/AdvReac Type Severity Reaction Status Date / Time hydralazine Allergy Severe See Comment Verified 02/17/18 15:17 latex Allergy Blisters Verified 02/17/18 15:17 PMH/Surg Hx/FS Hx/Imm Hx Endocrine/Hematology History: Denies: Hx Diabetes Cardiovascular History: Reports: Hx Angina, Hx Hypertension, Other Cardiovascular Problems/Disorders - angina Denies: Hx Congestive Heart Failure, Hx Pacemaker/ICD Respiratory History: Reports: Hx Asthma, Hx Chronic Obstructive Pulmonary Disease (COPD) GI History: Reports: Other GI Disorders - DIVERTICULITIS History: Reports: Hx Kidney Infection, Other Problems/Disorders - HX MILD RENAL INSUFFICIENCY Denies: Hx Renal Disease Musculoskeletal History: Reports: Other Musculoskeletal History - RHEUMATOID ARTHRITIS Sensory History: Denies: Hx Contacts or Glasses, Hx Legally Blind, Hx Deafness, Hx Hearing Aid Opthamlomology History: Denies: Hx Contacts or Glasses, Hx Legally Blind Neurological History: Reports: Hx Transient Ischemic Attacks (TIA) - current dx Psychiatric History: Denies: Hx Panic Disorder - Cancer History Cancer Type, Location and Year: skin on finger--removed - Surgical History Surgery Procedure, Year, and Place: HYSTERECTOMY, OOPHRECTOMY, APENDECTOMY, CHOLECYSTECTOMY,TONSILECTOMY,URINARY TRACT SURGERY Hx Anesthesia Reactions: No - Immunization History Date of Tetanus Vaccine: current Date of Influenza Vaccine: 2015 Infectious Disease History: No Infectious Disease History: Denies: Traveled Outside the [place] in Last 30 Days - Family History Known Family History: Positive: Cardiac Disease, Hypertension, Diabetes, Respiratory Disease - COPD, Other - stroke - Social History Alcohol Use: Occasionally Alcohol Amount: 3 drinks every so often Hx Substance Use: No Substance Use Type: Reports: None Hx Tobacco Use: Yes Smoking Status (MU): Light Every Day Tobacco Smoker Type: Cigarettes Length of Time of Smoking/Using Tobacco: 50 years Have You Smoked in the Last Year: Yes Review of Systems Negative: Fever Positive: Shortness Of Breath - Wheezing All Other Systems Reviewed And Are Negative: Yes Physical Exam - Summary Physical Exam Summary: Appearance: Well-nourished, lying in bed comfortably in minor distress with wheezing. Skin: Warm, dry, no obvious rash Eyes: sclera anicteric, no conjunctival pallor ENT: mucous membranes moist, pharynx appears normal Neck: Supple, nontender Respiratory: Diffuse wheezing with diminished aeration. Cardiovascular: Normal S1, S2. No murmurs. Normal distal pulses in tibial and radial bilaterally. Tachycardia Abdomen: Soft, nontender, normal active bowel sounds present Musculoskeletal: Normal, Strength/ROM Intact Neurological: A&Ox3, awake and alert, mentation is normal, speech is fluent and appropriate Psychiatric: affect is normal, does not appear anxious or depressed Triage Information Reviewed: Yes Vital Signs On Initial Exam: Initial Vitals Pulse Pulse Ox 123 96 05/04/18 02:59 05/04/18 02:59 Vital Signs Reviewed: Yes Diagnostics - Vital Signs Vital Signs Temp Pulse Resp BP Pulse Ox 05/04/18 03:01 114 25 178/98 99 05/04/18 03:00 97.7 F 118 26 178/98 98 05/04/18 02:59 123 96 - Laboratory Result Diagrams: 05/06/18 06:18 05/06/18 06:22 Lab Statement: Any lab studies that have been ordered have been reviewed, and results considered in the medical decision making process. - Radiology CXR Radiology Interpretation Completed By: ED Physician Summary of Radiographic Findings: No acute process. Awaiting official radiologist report. - EKG 0316 Cardiac Rate: NL EKG Rhythm: Sinus Rhythm - 98 bpm Summary of EKG Findings: Q waves in V2, Slight ST depressions in V4. Disposition - Course Course Of Treatment: This patient is a 67 year old female presenting to [facility] with a chief complaint of wheezing four days ago. Her CXR and EKG unremarkable for acute cardiopulmonary process. Her rapid Influenza A test came back positive. The patient will be admitted. Dr. Ni, Hospitalist, accepted the patient. The patient is agreeable with this plan. - Diagnoses Provider Diagnoses: Influenza A, COPD exacerbation - Physician Notifications Discussed Care Of Patient With: Chato Ni - Hospitalist Time Discussed With Above Provider: 04:50 Instructed by Provider To: Admit As Inpatient Discharge - Sign-Out/Discharge Documenting (check all that apply): Patient Departure - Admission Patient Received Moderate/Deep Sedation with Procedure: No - Discharge Plan Condition: Stable Disposition: ADMITTED TO [facility] - Billing Disposition and Condition Condition: STABLE Disposition: Admitted to [facility] - Attestation Statements Document Initiated by Scribe: Yes Documenting Scribe: Navid Ramires Provider For Whom Laurenibjr is Documenting (Include Credential): Jaleel Brown MD Scribe Attestation: Navid Alvarado scribed for Jaleel Brown MD on 05/06/18 at 1613. Scribe Documentation Reviewed: Yes Provider Attestation: The documentation as recorded by the Navid marte accurately reflects the service I personally performed and the decisions made by Jaleel reed MD Status of Scribe Document: Viewed
[2018-05-04 04:08] LABS: Influenza A Molecular POSITIVE (Negative)
[2018-05-04 04:25] LABS: ABS Basophils 0 10^3/ul (0-0.2); ABS Eosinophils 0 10^3/ul (0-0.6); ABS Neutrophils 5.5 10^3/ul (1.5-7.7); ABS Nucleated RBC 0 10^3/ul; Eosinophil % 0 %; Hematocrit 48 % (35-47); Hemoglobin 16.4 g/dl (12.0-16.0); Lymphocyte % 13.2 %; Mean Corpuscular HGB Conc 34 g/dl (31-36); Mean Corpuscular Hemoglobin 32 pg (27-31); Mean Corpuscular Volume 93 fL (80-97); Mean Platelet Volume 8.8 fL (7.4-10.4); Nucleated Red Blood Cells % 0; Platelet Count 187 10^3/ul (150-450); Red Blood Count 5.17 10^6/ul (4.00-5.40); Red Cell Distribution Width 13 % (10.5-15); White Blood Count 7.5 10^3/ul (3.5-10.8)
[2018-05-04 04:44] LABS: Albumin/Globulin Ratio 1.9 (1-3); BUN/Creatinine Ratio 17.3 (8-20); Calcium 10.1 mg/dL (8.6-10.3); EGFR African American 85.3 (>60); EGFR Non-African American 70.5 (>60); Globulin 2.7 g/dL (2-4); Potassium 3.9 mmol/L (3.5-5.0); Total Bilirubin 0.3 mg/dL (0.2-1.0); Total Protein 7.7 g/dL (6.4-8.9)
[2018-05-04] MEDS: Albuterol/Ipratropium NEB.SOL* Albuterol 2.5 MG/Ipratropium 0.5 MG 3 ML INH SCH ×5 (04:50→19:48)
[2018-05-04] MEDS ORDERED: hydrOXYzine HCL TAB* 25 MG PO PRN (06:02)
--- NOTE | 2018-05-04 06:07 | ADMNOTE ---
Subjective Date of Service: 05/04/18 Interval History: HISTORY & PHYSICAL CC: short of breath HPI: Patient with history of COPD has been coughing, sick for 1 week. She was seen at [facility] urgent care, started on prednisone, felt somewhat better. Then today suddenly had worsening dyspnea, severe cough. Denies fever, denies chest pain. Not O2 dependent at home. No sick contacts. Had flu vaccine. 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 [employer], smokes 1/2 PPD, drinks 2 beers/day, no recreational drugs Past Medical History: Findings - h/o upper GI bleed 09/02, COPD, HTN, HLD, GERD, CAD, h/o [place], h/o stroke, anxiety; PSH LT carotid stent Review of Systems - Measurements Intake and Output: Intake and Output Last 24 Hours 05/01/18 05/02/18 05/03/18 05/04/18 06:59 06:59 06:59 06:59 Weight 63.503 kg - Review of Systems Constitutional Symptoms: Positive: Weakness, Fatigue Negative: Fever Dermatology: Positive: Normal HEENT: Positive: Normal Eyes: Positive: Normal Thyroid: Positive: Normal Pulmonary: Positive: Cough, Sputum, Wheezing, Respiratory Distress, Shortness of Breath, COPD, Exercise Intolerance Negative: Hemoptysis Cardiology: Positive: Shortness of Breath, Peripheral Vascular Dis Gastroenterology: Positive: Normal Genital - Urinary: Positive: Normal Genitourinay - Female: Positive: Menopause Neurology: Positive: Headache Psychiatry: Positive: Anxiety Objective Active Medications: Acetaminophen (Tylenol Tab*) 650 mg PO Q4H PRN PRN Reason: FEVER/PAIN Albuterol/Ipratropium (Duoneb (Albuterol 2.5 Mg/Ipratropium 0.5 Mg)) 1 neb INH [id number] AWAKE [facility] Amlodipine Besylate (Norvasc Tab*) 10 mg PO DAILY [facility] Aspirin (Aspirin Ec Tab*) 81 mg PO DAILY [facility] Heparin Sodium (Porcine) (Heparin Vial(*)) 5,000 units SUBCUT Q8HR [facility] Hydroxyzine HCl (Atarax Tab*) 25 mg PO Q6HR PRN PRN Reason: ITCHING Methylprednisolone Sodium Succinate (Solu-Medrol 40 Mg) 40 mg IV Q8H [facility] Metoprolol Succinate (Toprol Xl Tab*) 50 mg PO DAILY [facility] Omeprazole (Prilosec Cap*) 20 mg PO DAILY@0730 [facility] Fluticasone/Salmeterol (Advair Diskus 500-50*) 1 puff INH BID [facility] Vital Signs - 8 hr 05/04/18 05/04/18 05/04/18 02:59 03:00 03:01 Temperature 36.5 C Pulse Rate 123 118 114 Respiratory 26 25 Rate Blood Pressure 178/98 178/98 (mmHg) O2 Sat by Pulse 96 98 99 Oximetry 05/04/18 05/04/18 05/04/18 03:30 03:38 04:00 Temperature Pulse Rate 111 116 106 Respiratory 30 21 25 Rate Blood Pressure 179/128 140/105 (mmHg) O2 Sat by Pulse 97 99 96 Oximetry 05/04/18 05/04/18 05/04/18 04:30 05:00 05:31 Temperature Pulse Rate 122 125 116 Respiratory 23 Rate Blood Pressure 134/72 134/87 161/106 (mmHg) O2 Sat by Pulse 98 97 98 Oximetry Oxygen Devices in Use Now: Venturi Mask, OxyMask Appearance: alert, mild resp distress, tripoding Eyes: No Scleral Icterus Ears/Nose/Mouth/Throat: Clear Oropharnyx Neck: NL Appearance and Movements; NL JVP Respiratory: Symmetrical Chest Expansion and Respiratory Effort, - - diffuse wheezing, moderate air movement Cardiovascular: NL Sounds; No Murmurs; No JVD, RRR Abdominal: NL Sounds; No Tenderness; No Distention, No Hepatosplenomegaly Lymphatic: No Cervical Adenopathy Skin: No Rash or Ulcers Neurological: Alert and Oriented x 3 Lines/Tubes/Other Access: Clean, Dry and Intact Peripheral IV Result Diagrams: 05/04/18 04:05 05/04/18 04:05 Additional Lab and Data: Laboratory Tests 05/04/18 05/04/18 05/04/18 04:02 04:05 04:05 VBG pH VBG pCO2 VBG pO2 VBG HCO3 Lactic Acid 1.9 AST 17 ALT 15 Troponin I 0.00 Influenza A (Rapid) Positive A 05/04/18 04:05 VBG pH 7.38 VBG pCO2 45 VBG pO2 45.0 VBG HCO3 25.1 Lactic Acid AST ALT Troponin I Influenza A (Rapid) Microbiology and Other Data: Microbiology 05/04/18 03:50 Influenza Types A,B Antigen - Final Nasopharyngeal Specimen received for Influenza A/B Molecular testing EKG Data: NSR, LAE, anterior Q waves, old AMI, no acute ischemia Assess/Plan/Problems-Billing Assessment: 67 year old with Influenza A, causing COPD exacerbation. - Patient Problems (1) COPD exacerbation Current Visit: No Status: Acute Priority: High Code(s): J44.1 - CHRONIC OBSTRUCTIVE PULMONARY DISEASE W (ACUTE) EXACERBATION SNOMED Code(s): 726914882 Comment: -severe, will continue IV steroids, Oxygen -Continue nebs -May need BiPAP if not improving -If febrile or not responding, will add IV antibiotics (2) Influenza A Current Visit: Yes Status: Acute Priority: Medium Code(s): J10.1 - FLU DUE TO OTH IDENT INFLUENZA VIRUS W OTH RESP MANIFEST SNOMED Code(s): 775773814 Comment: -this is proximate cause of COPD exacerbation -treated w/ Tamiflu -droplet precautions (3) Hypertension Current Visit: No Status: Chronic Priority: Medium Code(s): I10 - ESSENTIAL (PRIMARY) HYPERTENSION SNOMED Code(s): 01396607 Comment: - not well controlled at the moment - Continue Amlodipine and Metoprolol. - add lisinopril if BP consistently elevated (4) DVT prophylaxis Current Visit: No Status: Acute Priority: Low Code(s): MEN3671 - SNOMED Code(s): 784036386 Comment: - sc heparin Status and Disposition: Inpatient
[2018-05-04] MEDS: Acetaminophen TAB* 325 MG PO PRN ×4 (06:40→23:12)
[2018-05-04] MEDS: Heparin VIAL(*) 5000 UNITS/ML VIAL (FIVE THOUSAND) SUBCUT SCH ×3 (06:46→22:48)
[2018-05-04] MEDS: Aspirin EC TAB* 81 MG TAB.EC PO SCH (07:49)
[2018-05-04] MEDS: Pantoprazole TAB * 40 MG TAB PO SCH (07:49)
[2018-05-04] MEDS: Metoprolol Succinate XL TAB* 50 MG PO SCH (07:49)
[2018-05-04] MEDS: amLODIPine TAB* 5 MG PO SCH (07:49)
[2018-05-04] MEDS: Mometasone/Formoter 200/5 MDI INH SCH ×2 (08:12→19:48)
[2018-05-04] MEDS ORDERED: Tiotropium CAP.INH* CAP.INH/18 MCG (USE ORDER SET !) INH SCH (09:00)
[2018-05-04] MEDS: methylPREDNISolone SOD 40 MG* 1 ML VIAL IV SCH ×2 (11:15→19:47)
--- NOTE | 2018-05-04 16:33 | PN ---
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 [employer], smokes 1/2 PPD, drinks 2 beers/day, no recreational drugs Past Medical History: Findings - h/o upper GI bleed 09/02, COPD, HTN, HLD, GERD, CAD, h/o CA, h/o stroke, anxiety; PSH LT carotid stent Objective Active Medications: Acetaminophen (Tylenol Tab*) 650 mg PO Q4H PRN PRN Reason: FEVER/PAIN Last Admin: 05/04/18 15:36 Dose: 650 mg Albuterol/Ipratropium (Duoneb (Albuterol 2.5 Mg/Ipratropium 0.5 Mg)) 1 neb INH [id number] AWAKE [facility] Last Admin: 05/04/18 14:53 Dose: 1 neb Amlodipine Besylate (Norvasc Tab*) 10 mg PO DAILY [facility] Last Admin: 05/04/18 07:49 Dose: 10 mg Aspirin (Aspirin Ec Tab*) 81 mg PO DAILY [facility] Last Admin: 05/04/18 07:49 Dose: 81 mg Heparin Sodium (Porcine) (Heparin Vial(*)) 5,000 units SUBCUT Q8HR [facility] Last Admin: 05/04/18 14:24 Dose: 5,000 units Hydroxyzine HCl (Atarax Tab*) 25 mg PO Q6HR PRN PRN Reason: ITCHING Methylprednisolone Sodium Succinate (Solu-Medrol 40 Mg) 40 mg IV Q8H [facility] Last Admin: 05/04/18 11:15 Dose: 40 mg Metoprolol Succinate (Toprol Xl Tab*) 50 mg PO DAILY [facility] Last Admin: 05/04/18 07:49 Dose: 50 mg Mometasone Furoate/Formoterol Fumar (Dulera 200/5 Mdi*) 2 puff INH BID [facility] Last Admin: 05/04/18 08:12 Dose: 2 puff Pantoprazole Sodium (Protonix Tab*) 40 mg PO DAILY@0730 [facility] Last Admin: 05/04/18 07:49 Dose: 40 mg Vital Signs - 8 hr 05/04/18 05/04/18 05/04/18 10:51 11:59 14:54 Temperature 98.1 F Pulse Rate 106 102 106 Respiratory 18 18 20 Rate Blood Pressure 125/55 (mmHg) O2 Sat by Pulse 94 98 97 Oximetry Oxygen Devices in Use Now: None, OxyMask Appearance: exhausted Eyes: No Scleral Icterus Neck: NL Appearance and Movements; NL JVP Respiratory: Clear to Auscultation Cardiovascular: NL Sounds; No Murmurs; No JVD, RRR Abdominal: NL Sounds; No Tenderness; No Distention Extremities: No Edema Neurological: Alert and Oriented x 3 Result Diagrams: 05/04/18 04:05 05/04/18 04:05 Additional Lab and Data: Laboratory Tests 05/04/18 05/04/18 05/04/18 04:02 04:05 04:05 VBG pH VBG pCO2 VBG pO2 VBG HCO3 Lactic Acid 1.9 AST 17 ALT 15 Troponin I 0.00 Influenza A (Rapid) Positive A 05/04/18 04:05 VBG pH 7.38 VBG pCO2 45 VBG pO2 45.0 VBG HCO3 25.1 Lactic Acid AST ALT Troponin I Influenza A (Rapid) Microbiology and Other Data: Microbiology 05/04/18 03:50 Influenza Types A,B Antigen - Final Nasopharyngeal Specimen received for Influenza A/B Molecular testing EKG Data: NSR, LAE, anterior Q waves, old AMI, no acute ischemia Assess/Plan/Problems-Billing Assessment: 67 year old with Influenza A, causing COPD exacerbation. - Patient Problems (1) Influenza A Current Visit: Yes Status: Acute Priority: Medium Code(s): J10.1 - FLU DUE TO OTH IDENT INFLUENZA VIRUS W OTH RESP MANIFEST SNOMED Code(s): 024423507 Comment: -this is proximate cause of COPD exacerbation -treated w/ Tamiflu -droplet precautions (2) COPD exacerbation Current Visit: No Status: Acute Priority: High Code(s): J44.1 - CHRONIC OBSTRUCTIVE PULMONARY DISEASE W (ACUTE) EXACERBATION SNOMED Code(s): 238592598 Comment: -severe, will continue IV steroids, Oxygen -Continue nebs -May need BiPAP if not improving -If febrile or not responding, will add IV antibiotics (3) Hypertension Current Visit: No Status: Chronic Priority: Medium Code(s): I10 - ESSENTIAL (PRIMARY) HYPERTENSION SNOMED Code(s): 36716289 Comment: - Continue Amlodipine and Metoprolol. Status and Disposition: Inpatient
[2018-05-04] MEDS: Oseltamivir CAP* 75 MG CAP PO SCH ×2 (18:14→19:46)
[2018-05-04] MEDS: guaiFENesin ER TAB 600 MG PO PRN (20:46)
[2018-05-05] MEDS: methylPREDNISolone SOD 40 MG* 1 ML VIAL IV SCH ×3 (03:59→19:53)
[2018-05-05] MEDS: Albuterol/Ipratropium NEB.SOL* Albuterol 2.5 MG/Ipratropium 0.5 MG 3 ML INH SCH ×7 (04:15→23:12)
[2018-05-05] MEDS: Heparin VIAL(*) 5000 UNITS/ML VIAL (FIVE THOUSAND) SUBCUT SCH ×3 (06:33→21:06)
[2018-05-05] MEDS: Metoprolol Succinate XL TAB* 50 MG PO SCH (07:46)
[2018-05-05] MEDS: Oseltamivir CAP* 75 MG CAP PO SCH ×2 (07:47→19:53)
[2018-05-05] MEDS: Pantoprazole TAB * 40 MG TAB PO SCH (07:47)
[2018-05-05] MEDS: Aspirin EC TAB* 81 MG TAB.EC PO SCH (07:47)
[2018-05-05] MEDS: amLODIPine TAB* 5 MG PO SCH (07:47)
[2018-05-05] MEDS: Mometasone/Formoter 200/5 MDI INH SCH ×2 (07:57→19:43)
[2018-05-05 08:30] LABS: ABS Basophils 0 10^3/ul (0-0.2); ABS Eosinophils 0 10^3/ul (0-0.6); ABS Lymphocytes 0.7 10^3/ul (1.0-4.8); ABS Monocytes 0.8 10^3/ul (0-0.8); ABS Nucleated RBC 0 10^3/ul; Eosinophil % 0 %; Hematocrit 45 % (35-47); Hemoglobin 15.2 g/dl (12.0-16.0); Lymphocyte % 6.2 %; Mean Corpuscular HGB Conc 34 g/dl (31-36); Mean Corpuscular Hemoglobin 31 pg (27-31); Mean Corpuscular Volume 94 fL (80-97); Mean Platelet Volume 8.8 fL (7.4-10.4); Nucleated Red Blood Cells % 0.1; Platelet Count 180 10^3/ul (150-450); Red Blood Count 4.83 10^6/ul (4.00-5.40); Red Cell Distribution Width 13 % (10.5-15); White Blood Count 11.5 10^3/ul (3.5-10.8)
--- NOTE | 2018-05-05 08:30 | PN ---
Subjective Date of Service: 05/05/18 Interval History: HD #2 on 05/05/18 67 yo F with PMH HTN, COPD presented initially to urgent care found to have sig SOB in COPD exacerbation, in ED found to be + Influenza A. Overnight no acute events. VSSnotable for HTN overnight to 176/90, otherwise 158 /85, 96% on 4L (down from 6) , 68, 18, +UOPP, + 1 BM. No labs This afternoon seen and doing better compared to yesterdya, restarted home spiriva which she thinks is most benefical. Tolerating PO, no CP no GI or complaints. 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 [employer], smokes 1/2 PPD, drinks 2 beers/day, no recreational drugs Past Medical History: Findings - h/o upper GI bleed 09/02, COPD, HTN, HLD, GERD, CAD, h/o OR, h/o stroke, anxiety; PSH LT carotid stent Objective Active Medications: Acetaminophen (Tylenol Tab*) 650 mg PO Q4H PRN PRN Reason: FEVER/PAIN Last Admin: 05/04/18 23:12 Dose: 650 mg Albuterol/Ipratropium (Duoneb (Albuterol 2.5 Mg/Ipratropium 0.5 Mg)) 1 neb INH [id number] AWAKE [facility] Last Admin: 05/05/18 07:54 Dose: 1 neb Amlodipine Besylate (Norvasc Tab*) 10 mg PO DAILY [facility] Last Admin: 05/05/18 07:47 Dose: 10 mg Aspirin (Aspirin Ec Tab*) 81 mg PO DAILY [facility] Last Admin: 05/05/18 07:47 Dose: 81 mg Device (Tiotropium Inhaler Device*) 1 each .SEE ORDER .USE w/ SPIRIVA CAPS [facility] Guaifenesin (Mucinex*) 600 mg PO BID PRN PRN Reason: COUGH Last Admin: 05/04/18 20:46 Dose: 600 mg Heparin Sodium (Porcine) (Heparin Vial(*)) 5,000 units SUBCUT Q8HR [facility] Last Admin: 05/05/18 06:33 Dose: 5,000 units Hydroxyzine HCl (Atarax Tab*) 25 mg PO Q6HR PRN PRN Reason: ANXIETY Methylprednisolone Sodium Succinate (Solu-Medrol 40 Mg) 40 mg IV Q8H [facility] Last Admin: 05/05/18 03:59 Dose: 40 mg Metoprolol Succinate (Toprol Xl Tab*) 50 mg PO DAILY [facility] Last Admin: 05/05/18 07:46 Dose: 50 mg Mometasone Furoate/Formoterol Fumar (Dulera 200/5 Mdi*) 2 puff INH BID [facility] Last Admin: 05/05/18 07:57 Dose: 2 puff Oseltamivir Phosphate (Tamiflu Cap*) 75 mg PO BID [facility] Stop: 05/08/18 21:01 Last Admin: 05/05/18 07:47 Dose: 75 mg Pantoprazole Sodium (Protonix Tab*) 40 mg PO DAILY@0730 [facility] Last Admin: 05/05/18 07:47 Dose: 40 mg Tiotropium Center (Spiriva Cap.Inh*) 1 cap INH DAILY [facility] Vital Signs - 8 hr 05/05/18 05/05/18 04:30 07:55 Temperature 98.0 F Pulse Rate 90 68 Respiratory 16 18 Rate Blood Pressure 158/85 (mmHg) O2 Sat by Pulse 100 96 Oximetry Oxygen Devices in Use Now: Nasal Cannula, OxyMask Appearance: Pleasant woman on oxy mask Eyes: No Scleral Icterus, PERRLA Ears/Nose/Mouth/Throat: NL Teeth, Lips, Gums Neck: NL Appearance and Movements; NL JVP Respiratory: Symmetrical Chest Expansion and Respiratory Effort, - - Diffuse E wheeze Cardiovascular: NL Sounds; No Murmurs; No JVD, RRR Abdominal: NL Sounds; No Tenderness; No Distention, No Hepatosplenomegaly Lymphatic: No Cervical Adenopathy Extremities: No Edema Skin: No Rash or Ulcers Neurological: Alert and Oriented x 3 Result Diagrams: 05/05/18 08:08 05/05/18 08:08 EKG Data: NSR, LAE, anterior Q waves, old AMI, no acute ischemia Assess/Plan/Problems-Billing Assessment: 67 yo F with PMH HTN, COPD presented initially to urgent care found to have sig SOB in COPD exacerbation, in ED found to be + Influenza A. - Patient Problems (1) COPD exacerbation Current Visit: No Status: Acute Priority: High Code(s): J44.1 - CHRONIC OBSTRUCTIVE PULMONARY DISEASE W (ACUTE) EXACERBATION SNOMED Code(s): 857557620 Comment: -severe, will continue IV steroids Methylpred IV q 8, psace to q 12 05/06, Oxygen -Continue nebs -May need BiPAP if not improving -Spiriva, Albuterol nebs (2) Influenza A Current Visit: Yes Status: Acute Priority: Medium Code(s): J10.1 - FLU DUE TO OTH IDENT INFLUENZA VIRUS W OTH RESP MANIFEST SNOMED Code(s): 212175220 Comment: -this is proximate cause of COPD exacerbation -treated w/ Tamiflu -droplet precautions (3) Hypertension Current Visit: No Status: Chronic Priority: Medium Code(s): I10 - ESSENTIAL (PRIMARY) HYPERTENSION SNOMED Code(s): 29451765 Comment: - Continue Amlodipine and Metoprolol. (4) Anxiety Current Visit: No Status: Acute Code(s): F41.9 - ANXIETY DISORDER, UNSPECIFIED SNOMED Code(s): 25565931 Comment: -Continue Atarax (5) DVT prophylaxis Current Visit: No Status: Acute Priority: Low Code(s): IID7652 - SNOMED Code(s): 191863892 Comment: - sc heparin (6) Full code status Current Visit: No Status: Acute Code(s): Z78.9 - OTHER SPECIFIED HEALTH STATUS SNOMED Code(s): 923900975 Status and Disposition: Inpatient
[2018-05-05] MEDS: hydrOXYzine HCL TAB* 25 MG PO PRN ×3 (08:37→22:50)
[2018-05-05 08:48] LABS: BUN/Creatinine Ratio 24.2 (8-20); EGFR African American 108.1 (>60); EGFR Non-African American 89.3 (>60); Potassium 4.2 mmol/L (3.5-5.0)
[2018-05-05] MEDS ORDERED: Spiriva Inhaler DEVICE* 1 EACH DEVICE SCH (09:00)
[2018-05-05] MEDS: Tiotropium CAP.INH* CAP.INH/18 MCG (USE ORDER SET !) INH SCH (15:22)
[2018-05-05] MEDS: Acetaminophen TAB* 325 MG PO PRN ×2 (16:25→22:50)
[2018-05-06] MEDS: methylPREDNISolone SOD 40 MG* 1 ML VIAL IV SCH ×3 (02:52→19:34)
[2018-05-06] MEDS: Albuterol/Ipratropium NEB.SOL* Albuterol 2.5 MG/Ipratropium 0.5 MG 3 ML INH SCH ×5 (03:52→21:29)
[2018-05-06] MEDS: Heparin VIAL(*) 5000 UNITS/ML VIAL (FIVE THOUSAND) SUBCUT SCH ×3 (06:29→22:06)
[2018-05-06 06:50] LABS: ABS Basophils 0 10^3/ul (0-0.2); ABS Eosinophils 0 10^3/ul (0-0.6); ABS Lymphocytes 0.7 10^3/ul (1.0-4.8); ABS Monocytes 0.4 10^3/ul (0-0.8); ABS Neutrophils 8.7 10^3/ul (1.5-7.7); ABS Nucleated RBC 0 10^3/ul; Eosinophil % 0 %; Hematocrit 44 % (35-47); Hemoglobin 14.7 g/dl (12.0-16.0); Mean Corpuscular HGB Conc 34 g/dl (31-36); Mean Corpuscular Hemoglobin 32 pg (27-31); Mean Corpuscular Volume 94 fL (80-97); Mean Platelet Volume 8.8 fL (7.4-10.4); Nucleated Red Blood Cells % 0; Platelet Count 162 10^3/ul (150-450); Red Blood Count 4.67 10^6/ul (4.00-5.40); Red Cell Distribution Width 13 % (10.5-15); White Blood Count 9.8 10^3/ul (3.5-10.8)
[2018-05-06 07:06] LABS: BUN/Creatinine Ratio 31.3 (8-20); Calcium 9.8 mg/dL (8.6-10.3); EGFR African American 106.2 (>60); EGFR Non-African American 87.8 (>60); Potassium 4.5 mmol/L (3.5-5.0)
--- NOTE | 2018-05-06 07:28 | PN ---
Subjective Date of Service: 05/06/18 Interval History: HD #3 on 05/06/18 67 yo F with PMH HTN, COPD presented initially to urgent care found to have sig SOB in COPD exacerbation, in ED found to be + Influenza A. Overnight no acute events. VSS notable for HTN overnight to 141/74 otherwise 96 % on 4L-5L (down from 6) oxy mask, 68, 18, +UOP, + 1 BM. Labs stable This morning seen and doing better OK, still feels tight and has labored breathing on exertion, has the need to cough and couging up yellow frequent sputum. Has bettyetie is ambulating,baseline O2 is none at home and still needing 4L on Oxymask, she is willing ot wean to nasal cannula. 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 [employer], smokes 1/2 PPD, drinks 2 beers/day, no recreational drugs Past Medical History: Findings - h/o upper GI bleed 09/02, COPD, HTN, HLD, GERD, CAD, h/o AL, h/o stroke, anxiety; PSH LT carotid stent Objective Active Medications: Acetaminophen (Tylenol Tab*) 650 mg PO Q4H PRN PRN Reason: FEVER/PAIN Last Admin: 05/05/18 22:50 Dose: 650 mg Albuterol/Ipratropium (Duoneb (Albuterol 2.5 Mg/Ipratropium 0.5 Mg)) 1 neb INH [id number] AWAKE [facility] Last Admin: 05/06/18 03:52 Dose: Not Given Amlodipine Besylate (Norvasc Tab*) 10 mg PO DAILY [facility] Last Admin: 05/05/18 07:47 Dose: 10 mg Aspirin (Aspirin Ec Tab*) 81 mg PO DAILY [facility] Last Admin: 05/05/18 07:47 Dose: 81 mg Device (Tiotropium Inhaler Device*) 1 each .SEE ORDER .USE w/ SPIRIVA CAPS [facility] Guaifenesin (Mucinex*) 600 mg PO BID PRN PRN Reason: COUGH Last Admin: 05/04/18 20:46 Dose: 600 mg Heparin Sodium (Porcine) (Heparin Vial(*)) 5,000 units SUBCUT Q8HR [facility] Last Admin: 05/06/18 06:29 Dose: 5,000 units Hydroxyzine HCl (Atarax Tab*) 25 mg PO Q6HR PRN PRN Reason: ANXIETY Last Admin: 05/05/18 22:50 Dose: 25 mg Methylprednisolone Sodium Succinate (Solu-Medrol 40 Mg) 40 mg IV Q8H [facility] Last Admin: 05/06/18 02:52 Dose: 40 mg Metoprolol Succinate (Toprol Xl Tab*) 50 mg PO DAILY [facility] Last Admin: 05/05/18 07:46 Dose: 50 mg Mometasone Furoate/Formoterol Fumar (Dulera 200/5 Mdi*) 2 puff INH BID [facility] Last Admin: 05/05/18 19:43 Dose: 2 puff Oseltamivir Phosphate (Tamiflu Cap*) 75 mg PO BID [facility] Stop: 05/08/18 21:01 Last Admin: 05/05/18 19:53 Dose: 75 mg Pantoprazole Sodium (Protonix Tab*) 40 mg PO DAILY@0730 [facility] Last Admin: 05/05/18 07:47 Dose: 40 mg Tiotropium [place] (Spiriva Cap.Inh*) 1 cap INH DAILY [facility] Last Admin: 05/05/18 15:22 Dose: 1 puff Vital Signs - 8 hr 05/06/18 05/06/18 00:01 02:50 Temperature 98.3 F 97.3 F Pulse Rate 93 73 Respiratory 18 18 Rate Blood Pressure 141/84 141/74 (mmHg) O2 Sat by Pulse 100 99 Oximetry Oxygen Devices in Use Now: Simple Face Mask, OxyMask Appearance: Well woman in NAD, SOB after conversation Eyes: No Scleral Icterus Ears/Nose/Mouth/Throat: NL Teeth, Lips, Gums Neck: NL Appearance and Movements; NL JVP Respiratory: - - Poor Result Diagrams: 05/06/18 06:18 05/06/18 06:22 Additional Lab and Data: Laboratory Tests 05/04/18 05/04/18 05/04/18 04:02 04:05 04:05 VBG pH VBG pCO2 VBG pO2 VBG HCO3 Lactic Acid 1.9 AST 17 ALT 15 Troponin I 0.00 Influenza A (Rapid) Positive A 05/04/18 04:05 VBG pH 7.38 VBG pCO2 45 VBG pO2 45.0 VBG HCO3 25.1 Lactic Acid AST ALT Troponin I Influenza A (Rapid) Microbiology and Other Data: Microbiology 05/04/18 03:50 Influenza Types A,B Antigen - Final Nasopharyngeal Specimen received for Influenza A/B Molecular testing EKG Data: NSR, LAE, anterior Q waves, old AMI, no acute ischemia Assess/Plan/Problems-Billing Assessment: 67 yo F with PMH HTN, COPD presented initially to urgent care found to have sig SOB in COPD exacerbation, in ED found to be + Influenza A. - Patient Problems (1) COPD exacerbation Current Visit: No Status: Acute Priority: High Code(s): J44.1 - CHRONIC OBSTRUCTIVE PULMONARY DISEASE W (ACUTE) EXACERBATION SNOMED Code(s): 178230376 Comment: -severe, will continue IV steroids Methylpred IV q 8, space to q 12 05/06, Oxygen wean as tolerated -Continue nebs, will add Hypertonic saline nebs 3% post bronchodialator, communicated with RT -May need BiPAP -Spiriva, Albuterol nebs -Will start Z pack as Sputum is yellow and green, pro inflammatory benefits in severe COPD exacerbation (2) Influenza A Current Visit: Yes Status: Acute Priority: Medium Code(s): J10.1 - FLU DUE TO OTH IDENT INFLUENZA VIRUS W OTH RESP MANIFEST SNOMED Code(s): 290174694 Comment: -this is proximate cause of COPD exacerbation -treated w/ Tamiflu -droplet precautions (3) Hypertension Current Visit: No Status: Chronic Priority: Medium Code(s): I10 - ESSENTIAL (PRIMARY) HYPERTENSION SNOMED Code(s): 40898381 Comment: - Continue Amlodipine and Metoprolol. (4) Anxiety Current Visit: No Status: Acute Code(s): F41.9 - ANXIETY DISORDER, UNSPECIFIED SNOMED Code(s): 36711704 Comment: -Continue Atarax (5) DVT prophylaxis Current Visit: No Status: Acute Priority: Low Code(s): YFZ7435 - SNOMED Code(s): 528747427 Comment: - sc heparin (6) Full code status Current Visit: No Status: Acute Code(s): Z78.9 - OTHER SPECIFIED HEALTH STATUS SNOMED Code(s): 355762017 Status and Disposition: Inpatient, possible d/c tomorrow
[2018-05-06] MEDS ORDERED: Sodium Chloride(INHALANT) 3%* 4 ML NEB.SOLN INH PRN (08:36)
[2018-05-06] MEDS ORDERED: Azithromycin TAB* 250 MG PO ONE (08:39)
[2018-05-06] MEDS: Aspirin EC TAB* 81 MG TAB.EC PO SCH (09:10)
[2018-05-06] MEDS: guaiFENesin ER TAB 600 MG PO PRN (09:10)
[2018-05-06] MEDS: Pantoprazole TAB * 40 MG TAB PO SCH (09:10)
[2018-05-06] MEDS: amLODIPine TAB* 5 MG PO SCH (09:10)
[2018-05-06] MEDS: hydrOXYzine HCL TAB* 25 MG PO PRN ×2 (09:11→22:06)
[2018-05-06] MEDS: Metoprolol Succinate XL TAB* 50 MG PO SCH (09:11)
[2018-05-06] MEDS: Oseltamivir CAP* 75 MG CAP PO SCH ×2 (09:11→22:06)
[2018-05-06] MEDS: Tiotropium CAP.INH* CAP.INH/18 MCG (USE ORDER SET !) INH SCH (09:13)
[2018-05-06] MEDS: Mometasone/Formoter 200/5 MDI INH SCH ×2 (09:13→21:30)
[2018-05-06] MEDS: Acetaminophen TAB* 325 MG PO PRN (22:06)
[2018-05-07] MEDS: Albuterol/Ipratropium NEB.SOL* Albuterol 2.5 MG/Ipratropium 0.5 MG 3 ML INH SCH ×4 (01:33→20:09)
[2018-05-07] MEDS: methylPREDNISolone SOD 40 MG* 1 ML VIAL IV SCH ×3 (03:52→20:28)
[2018-05-07] MEDS: Heparin VIAL(*) 5000 UNITS/ML VIAL (FIVE THOUSAND) SUBCUT SCH ×3 (06:18→20:41)
[2018-05-07 06:53] LABS: ABS Basophils 0 10^3/ul (0-0.2); ABS Eosinophils 0 10^3/ul (0-0.6); ABS Lymphocytes 0.7 10^3/ul (1.0-4.8); ABS Monocytes 0.6 10^3/ul (0-0.8); ABS Neutrophils 7.8 10^3/ul (1.5-7.7); ABS Nucleated RBC 0 10^3/ul; Eosinophil % 0.2 %; Hematocrit 43 % (35-47); Hemoglobin 14.5 g/dl (12.0-16.0); Lymphocyte % 7.9 %; Mean Corpuscular HGB Conc 34 g/dl (31-36); Mean Corpuscular Hemoglobin 32 pg (27-31); Mean Corpuscular Volume 94 fL (80-97); Mean Platelet Volume 8.6 fL (7.4-10.4); Nucleated Red Blood Cells % 0; Platelet Count 161 10^3/ul (150-450); Red Blood Count 4.52 10^6/ul (4.00-5.40); Red Cell Distribution Width 13 % (10.5-15); White Blood Count 9.1 10^3/ul (3.5-10.8)
[2018-05-07 07:14] LABS: BUN/Creatinine Ratio 33.9 (8-20); Calcium 9.7 mg/dL (8.6-10.3); EGFR African American 116.2 (>60); Potassium 4.2 mmol/L (3.5-5.0)
[2018-05-07] MEDS: Mometasone/Formoter 200/5 MDI INH SCH ×2 (07:51→20:09)
[2018-05-07] MEDS: Tiotropium CAP.INH* CAP.INH/18 MCG (USE ORDER SET !) INH SCH (07:51)
--- NOTE | 2018-05-07 08:35 | PN ---
Subjective Date of Service: 05/07/18 Interval History: HD #4 on 05/07/18 67 yo F with PMH HTN, COPD presented initially to urgent care found to have sig SOB in COPD exacerbation, in ED found to be + Influenza A. Overnight no acute events. VSS 4L-5L (down from 6) oxy mask, 68, 18, +UOP, + 1 BM. Labs stable This morning seen and doing better OK, still feels tight and has labored breathing on exertion, has the need to cough and couging up yellow frequent sputum. Has appetitie is ambulating,baseline O2 is none at home and still needing 3L nasal cannula. She has no nebulizer or oxygen at home, we discuss trying to get some services in place, also changing meds to PO. 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 [employer], smokes 1/2 PPD, drinks 2 beers/day, no recreational drugs Past Medical History: Findings - h/o upper GI bleed 09/02, COPD, HTN, HLD, GERD, CAD, h/o AL, h/o stroke, anxiety; PSH LT carotid stent Objective Active Medications: Acetaminophen (Tylenol Tab*) 650 mg PO Q4H PRN PRN Reason: FEVER/PAIN Last Admin: 05/06/18 22:06 Dose: 650 mg Albuterol/Ipratropium (Duoneb (Albuterol 2.5 Mg/Ipratropium 0.5 Mg)) 1 neb INH [id number] AWAKE [facility] Last Admin: 05/07/18 07:51 Dose: 1 neb Amlodipine Besylate (Norvasc Tab*) 10 mg PO DAILY [facility] Last Admin: 05/06/18 09:10 Dose: 10 mg Aspirin (Aspirin Ec Tab*) 81 mg PO DAILY [facility] Last Admin: 05/06/18 09:10 Dose: 81 mg Azithromycin (Zithromax Tab*) 250 mg PO DAILY [facility] Stop: 05/10/18 09:01 Device (Tiotropium Inhaler Device*) 1 each .SEE ORDER .USE w/ SPIRIVA CAPS [facility] Guaifenesin (Mucinex*) 600 mg PO BID PRN PRN Reason: COUGH Last Admin: 05/06/18 09:10 Dose: 600 mg Heparin Sodium (Porcine) (Heparin Vial(*)) 5,000 units SUBCUT Q8HR [facility] Last Admin: 05/07/18 06:18 Dose: 5,000 units Hydroxyzine HCl (Atarax Tab*) 25 mg PO Q6HR PRN PRN Reason: ANXIETY Last Admin: 05/06/18 22:06 Dose: 25 mg Methylprednisolone Sodium Succinate (Solu-Medrol 40 Mg) 40 mg IV Q8H [facility] Last Admin: 05/07/18 03:52 Dose: 40 mg Metoprolol Succinate (Toprol Xl Tab*) 50 mg PO DAILY [facility] Last Admin: 05/06/18 09:11 Dose: 50 mg Mometasone Furoate/Formoterol Fumar (Dulera 200/5 Mdi*) 2 puff INH BID [facility] Last Admin: 05/07/18 07:51 Dose: 2 puff Oseltamivir Phosphate (Tamiflu Cap*) 75 mg PO BID [facility] Stop: 05/08/18 21:01 Last Admin: 05/06/18 22:06 Dose: 75 mg Pantoprazole Sodium (Protonix Tab*) 40 mg PO DAILY@0730 [facility] Last Admin: 05/06/18 09:10 Dose: 40 mg Sodium Chloride (Sodium Chloride(Inhalant) 3%*) 3 ml INH Q4H PRN PRN Reason: SHORTNESS OF BREATH Last Admin: 05/06/18 09:19 Dose: 3 ml Tiotropium [place] (Spiriva Cap.Inh*) 1 cap INH DAILY [facility] Last Admin: 05/07/18 07:51 Dose: 1 puff Vital Signs - 8 hr 05/07/18 05/07/18 03:05 07:58 Temperature 98.5 F Pulse Rate 74 85 Respiratory 18 16 Rate Blood Pressure 128/61 (mmHg) O2 Sat by Pulse 99 91 Oximetry Oxygen Devices in Use Now: Simple Face Mask, OxyMask Appearance: Pleasant woman reading a newspaper Ears/Nose/Mouth/Throat: NL Teeth, Lips, Gums, Mucous Membranes Moist Neck: NL Appearance and Movements; NL JVP Respiratory: Symmetrical Chest Expansion and Respiratory Effort, - - Distant breath sounds, improved air movement from yesterday, continues to have E wheeze Cardiovascular: NL Sounds; No Murmurs; No JVD, RRR Abdominal: NL Sounds; No Tenderness; No Distention Lymphatic: No Cervical Adenopathy Extremities: No Edema Skin: No Rash or Ulcers Neurological: Alert and Oriented x 3 Result Diagrams: 05/07/18 06:40 05/07/18 06:45 Additional Lab and Data: Laboratory Tests 05/04/18 05/04/18 05/04/18 04:02 04:05 04:05 VBG pH VBG pCO2 VBG pO2 VBG HCO3 Lactic Acid 1.9 AST 17 ALT 15 Troponin I 0.00 Influenza A (Rapid) Positive A 05/04/18 04:05 VBG pH 7.38 VBG pCO2 45 VBG pO2 45.0 VBG HCO3 25.1 Lactic Acid AST ALT Troponin I Influenza A (Rapid) Microbiology and Other Data: Microbiology 05/04/18 03:50 Influenza Types A,B Antigen - Final Nasopharyngeal Specimen received for Influenza A/B Molecular testing EKG Data: NSR, LAE, anterior Q waves, old AMI, no acute ischemia Assess/Plan/Problems-Billing Assessment: 67 yo F with PMH HTN, COPD presented initially to urgent care found to have sig SOB in COPD exacerbation, in ED found to be + Influenza A. - Patient Problems (1) COPD exacerbation Current Visit: No Status: Acute Priority: High Code(s): J44.1 - CHRONIC OBSTRUCTIVE PULMONARY DISEASE W (ACUTE) EXACERBATION SNOMED Code(s): 437117225 Comment: -severe, will continue IV steroids Methylpred IV q 8, will change to PO pred 50mg for 05/08, Oxygen wean as tolerated -Continue nebs, will add Hypertonic saline nebs 3% post bronchodialator, communicated with RT -Spiriva, Albuterol nebs -Z pack Day 2/5 on 05/07 as Sputum is yellow and green, pro inflammatory benefits in severe COPD exacerbation (2) Influenza A Current Visit: Yes Status: Acute Priority: Medium Code(s): J10.1 - FLU DUE TO OTH IDENT INFLUENZA VIRUS W OTH RESP MANIFEST SNOMED Code(s): 228776929 Comment: -This is proximate cause of COPD exacerbation -treated w/ Tamiflu -droplet precautions (3) Hypertension Current Visit: No Status: Chronic Priority: Medium Code(s): I10 - ESSENTIAL (PRIMARY) HYPERTENSION SNOMED Code(s): 61522262 Comment: - Continue Amlodipine and Metoprolol. (4) Anxiety Current Visit: No Status: Acute Code(s): F41.9 - ANXIETY DISORDER, UNSPECIFIED SNOMED Code(s): 66920935 Comment: -Continue Atarax (5) DVT prophylaxis Current Visit: No Status: Acute Priority: Low Code(s): [id number] - SNOMED Code(s): 136957844 Comment: - sc heparin (6) Full code status Current Visit: No Status: Acute Code(s): Z78.9 - OTHER SPECIFIED HEALTH STATUS SNOMED Code(s): 687956914 Status and Disposition: Inpatient, possible d/c tomorrow if nebs and oxygen can be in place we have ordered this today
[2018-05-07] MEDS: Metoprolol Succinate XL TAB* 50 MG PO SCH (10:26)
[2018-05-07] MEDS: Aspirin EC TAB* 81 MG TAB.EC PO SCH (10:26)
[2018-05-07] MEDS: amLODIPine TAB* 5 MG PO SCH (10:26)
[2018-05-07] MEDS: Azithromycin TAB* 250 MG PO SCH (10:26)
[2018-05-07] MEDS: Oseltamivir CAP* 75 MG CAP PO SCH ×2 (10:26→20:41)
[2018-05-07] MEDS: Pantoprazole TAB * 40 MG TAB PO SCH (10:27)
[2018-05-07] MEDS: hydrOXYzine HCL TAB* 25 MG PO PRN ×2 (10:42→20:40)
[2018-05-07] MEDS: Acetaminophen TAB* 325 MG PO PRN ×2 (10:42→20:40)
[2018-05-07] MEDS: Nicotine PATCH 14 MG/24 HR* PATCH TRANSDERM SCH (12:56)
[2018-05-07] MEDS: guaiFENesin ER TAB 600 MG PO PRN (20:40)
[2018-05-07] MEDS: Nicotine Patch Removal NOTE FOLLOW UP SCH (20:45)
[2018-05-08] MEDS: Albuterol/Ipratropium NEB.SOL* Albuterol 2.5 MG/Ipratropium 0.5 MG 3 ML INH SCH ×4 (00:32→19:18)
[2018-05-08] MEDS: Mometasone/Formoter 200/5 MDI INH SCH ×3 (06:13→19:18)
[2018-05-08 06:14] LABS: Hematocrit 45 % (35-47); Hemoglobin 15.1 g/dl (12.0-16.0); Mean Corpuscular HGB Conc 34 g/dl (31-36); Mean Corpuscular Hemoglobin 32 pg (27-31); Mean Corpuscular Volume 94 fL (80-97); Mean Platelet Volume 8.3 fL (7.4-10.4); Platelet Count 172 10^3/ul (150-450); Red Blood Count 4.79 10^6/ul (4.00-5.40); Red Cell Distribution Width 13 % (10.5-15); White Blood Count 8.4 10^3/ul (3.5-10.8)
[2018-05-08] MEDS: Tiotropium CAP.INH* CAP.INH/18 MCG (USE ORDER SET !) INH SCH ×2 (06:18→07:26)
[2018-05-08 06:30] LABS: BUN/Creatinine Ratio 27.8 (8-20); Calcium 9.7 mg/dL (8.6-10.3); EGFR African American 97.8 (>60); EGFR Non-African American 80.8 (>60); Potassium 4.3 mmol/L (3.5-5.0)
[2018-05-08 06:40] LABS: ABS Basophils 0 10^3/ul (0-0.2); ABS Eosinophils 0 10^3/ul (0-0.6); ABS Lymphocytes 0.8 10^3/ul (1.0-4.8); ABS Monocytes 0.8 10^3/ul (0-0.8); ABS Neutrophils 6.8 10^3/ul (1.5-7.7); ABS Nucleated RBC 0 10^3/ul; Eosinophil % 0.1 %; Lymphocyte % 9.1 %; Nucleated Red Blood Cells % 0
[2018-05-08] MEDS: predniSONE TAB* 50 MG PO SCH (09:56)
[2018-05-08] MEDS: Aspirin EC TAB* 81 MG TAB.EC PO SCH (09:57)
[2018-05-08] MEDS: Oseltamivir CAP* 75 MG CAP PO SCH ×2 (09:57→21:56)
[2018-05-08] MEDS: Metoprolol Succinate XL TAB* 50 MG PO SCH (09:57)
[2018-05-08] MEDS: Azithromycin TAB* 250 MG PO SCH (09:57)
[2018-05-08] MEDS: amLODIPine TAB* 5 MG PO SCH (09:57)
[2018-05-08] MEDS: Nicotine PATCH 14 MG/24 HR* PATCH TRANSDERM SCH (09:57)
[2018-05-08] MEDS: Pantoprazole TAB * 40 MG TAB PO SCH (09:57)
[2018-05-08] MEDS: Acetaminophen TAB* 325 MG PO PRN ×2 (16:09→21:56)
[2018-05-08] MEDS: Heparin VIAL(*) 5000 UNITS/ML VIAL (FIVE THOUSAND) SUBCUT SCH ×3 (16:46→21:57)
--- NOTE | 2018-05-08 16:54 | PN ---
Subjective Date of Service: 05/08/18 Interval History: Observed ambulating from bathroom to bed and was noted to be mildly dyspneic. Patient reports she is improving since admission. As above patient reports she continues to have some shortness of breath with exertion, but this is slowly improving. Patient reports occasional cough. 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 [employer], smokes 1/2 PPD, drinks 2 beers/day, no recreational drugs Past Medical History: Findings - h/o upper GI bleed 09/02, COPD, HTN, HLD, GERD, CAD, h/o [place], h/o stroke, anxiety; PSH LT carotid stent Objective Active Medications: Acetaminophen (Tylenol Tab*) 650 mg PO Q4H PRN PRN Reason: FEVER/PAIN Last Admin: 05/08/18 16:09 Dose: 650 mg Albuterol/Ipratropium (Duoneb (Albuterol 2.5 Mg/Ipratropium 0.5 Mg)) 1 neb INH [id number] AWAKE [facility] Last Admin: 05/08/18 12:37 Dose: 1 neb Amlodipine Besylate (Norvasc Tab*) 10 mg PO DAILY [facility] Last Admin: 05/08/18 09:57 Dose: 10 mg Aspirin (Aspirin Ec Tab*) 81 mg PO DAILY [facility] Last Admin: 05/08/18 09:57 Dose: 81 mg Azithromycin (Zithromax Tab*) 250 mg PO DAILY [facility] Stop: 05/10/18 09:01 Last Admin: 05/08/18 09:57 Dose: 250 mg Device (Tiotropium Inhaler Device*) 1 each .SEE ORDER .USE w/ SPIRIVA CAPS [facility] Guaifenesin (Mucinex*) 600 mg PO BID PRN PRN Reason: COUGH Last Admin: 05/07/18 20:40 Dose: 600 mg Heparin Sodium (Porcine) (Heparin Vial(*)) 5,000 units SUBCUT Q8HR [facility] Last Admin: 05/08/18 16:46 Dose: Not Given Hydroxyzine HCl (Atarax Tab*) 25 mg PO Q6HR PRN PRN Reason: ANXIETY Last Admin: 05/07/18 20:40 Dose: 25 mg Metoprolol Succinate (Toprol Xl Tab*) 50 mg PO DAILY [facility] Last Admin: 05/08/18 09:57 Dose: 50 mg Mometasone Furoate/Formoterol Fumar (Dulera 200/5 Mdi*) 2 puff INH BID [facility] Last Admin: 05/08/18 07:25 Dose: Not Given Nicotine (Nicotine Patch 14 Mg/24 Hr*) 1 patch TRANSDERM DAILY [facility] Last Admin: 05/08/18 09:57 Dose: 1 patch Oseltamivir Phosphate (Tamiflu Cap*) 75 mg PO BID [facility] Stop: 05/08/18 21:01 Last Admin: 05/08/18 09:57 Dose: 75 mg Pantoprazole Sodium (Protonix Tab*) 40 mg PO DAILY@0730 [facility] Last Admin: 05/08/18 09:57 Dose: 40 mg Pharmacy Profile Note (Nicotine Patch Removal Note*) 1 note FOLLOW UP 2100 [facility] Last Admin: 05/07/18 20:45 Dose: 1 note Prednisone (Deltasone Tab*) 50 mg PO DAILY [facility] Last Admin: 05/08/18 09:56 Dose: 50 mg Sodium Chloride (Sodium Chloride(Inhalant) 3%*) 3 ml INH Q4H PRN PRN Reason: SHORTNESS OF BREATH Last Admin: 05/06/18 09:19 Dose: 3 ml Tiotropium [place] (Spiriva Cap.Inh*) 1 cap INH DAILY [facility] Last Admin: 05/08/18 07:26 Dose: Not Given Vital Signs - 8 hr 05/08/18 05/08/18 05/08/18 11:15 11:30 11:39 Temperature 97.8 F Pulse Rate 86 Respiratory 18 20 Rate Blood Pressure 150/75 (mmHg) O2 Sat by Pulse 92 91 Oximetry 05/08/18 05/08/18 12:39 14:05 Temperature 97.8 F Pulse Rate 82 93 Respiratory 14 Rate Blood Pressure 150/77 (mmHg) O2 Sat by Pulse 94 94 Oximetry Oxygen Devices in Use Now: Nasal Cannula Appearance: Mildy dyspneic with ambulation. Comfortable at rest Eyes: No Scleral Icterus Ears/Nose/Mouth/Throat: Clear Oropharnyx, Mucous Membranes Moist Neck: NL Appearance and Movements; NL JVP Respiratory: Symmetrical Chest Expansion and Respiratory Effort, - - Scant wheezing and decreased breath sounds Cardiovascular: NL Sounds; No Murmurs; No JVD, RRR, No Edema Abdominal: NL Sounds; No Tenderness; No Distention Lymphatic: No Cervical Adenopathy Extremities: No Clubbing, Cyanosis Skin: No Rash or Ulcers Neurological: Alert and Oriented x 3 Nutrition: Taking PO's Result Diagrams: 05/08/18 05:59 05/08/18 05:59 Additional Lab and Data: Laboratory Results - last 24 hr 05/08/18 05/08/18 05:59 05:59 WBC 8.4 RBC 4.79 Hgb 15.1 Hct 45 MCV 94 MCH 32 H MCHC 34 RDW 13 Plt Count 172 MPV 8.3 Neut % (Auto) 81.1 Lymph % (Auto) 9.1 [place] % (Auto) 9.5 Eos % (Auto) 0.1 Baso % (Auto) 0.2 Absolute Neuts (auto) 6.8 Absolute Lymphs (auto) 0.8 L Absolute Monos (auto) 0.8 Absolute Eos (auto) 0 Absolute Basos (auto) 0 Absolute Nucleated RBC 0 Nucleated RBC % 0 Sodium 135 Potassium 4.3 Chloride 97 L Carbon Dioxide 33 H Anion Gap 5 BUN 20 Creatinine 0.72 Est GFR ( Amer) 97.8 Est GFR (Non-Af Amer) 80.8 BUN/Creatinine Ratio 27.8 H Glucose 169 H Calcium 9.7 Microbiology and Other Data: Microbiology 05/04/18 03:50 Influenza Types A,B Antigen - Final Nasopharyngeal Specimen received for Influenza A/B Molecular testing EKG Data: NSR, LAE, anterior Q waves, old AMI, no acute ischemia Assess/Plan/Problems-Billing Assessment: 67 yo F with PMH HTN, COPD presented initially to urgent care found to have sig SOB in COPD exacerbation, in ED found to be + Influenza A. - Patient Problems (1) Influenza A Comment: - This is proximate cause of COPD exacerbation - Cont w/ Tamiflu - Cont droplet precautions (2) Anxiety Comment: -Continue Atarax (3) COPD exacerbation Comment: - Today transition from IV to PO pred 50mg - Oxygen wean as tolerated - Continue nebs - Spiriva, Albuterol nebs - Z pack Day 3/5 on 05/07 as Sputum is yellow and green, pro inflammatory benefits in severe COPD exacerbation (4) Hypertension Comment: - Continue Amlodipine and Metoprolol. (5) DVT prophylaxis Comment: - sc heparin (6) Full code status Status and Disposition: Inpatient, possible d/c tomorrow if nebs and oxygen can be in place we have ordered this today Attending: Apollo Montesinos
[2018-05-08] MEDS: guaiFENesin ER TAB 600 MG PO PRN (21:55)
[2018-05-08] MEDS: hydrOXYzine HCL TAB* 25 MG PO PRN (21:56)
[2018-05-09] MEDS: Albuterol/Ipratropium NEB.SOL* Albuterol 2.5 MG/Ipratropium 0.5 MG 3 ML INH SCH ×2 (01:23→08:00)
[2018-05-09] MEDS: Heparin VIAL(*) 5000 UNITS/ML VIAL (FIVE THOUSAND) SUBCUT SCH (07:28)
[2018-05-09] MEDS: Nicotine Patch Removal NOTE FOLLOW UP SCH (07:47)
[2018-05-09] MEDS: Tiotropium CAP.INH* CAP.INH/18 MCG (USE ORDER SET !) INH SCH (08:01)
[2018-05-09] MEDS: Mometasone/Formoter 200/5 MDI INH SCH (08:01)
[2018-05-09] MEDS ORDERED: Albuterol/Ipratropium NEB.SOL* Albuterol 2.5 MG/Ipratropium 0.5 MG 3 ML INH PRN (08:06)
[2018-05-09] MEDS: Pantoprazole TAB * 40 MG TAB PO SCH (08:12)
[2018-05-09] MEDS: predniSONE TAB* 50 MG PO SCH (08:12)
[2018-05-09] MEDS: Aspirin EC TAB* 81 MG TAB.EC PO SCH (08:12)
[2018-05-09] MEDS: Azithromycin TAB* 250 MG PO SCH (08:12)
[2018-05-09] MEDS: amLODIPine TAB* 5 MG PO SCH (08:12)
[2018-05-09] MEDS: Metoprolol Succinate XL TAB* 50 MG PO SCH (08:12)
[2018-05-09] MEDS: Nicotine PATCH 14 MG/24 HR* PATCH TRANSDERM SCH (08:14)
[2018-05-09 12:16] VITALS: BP 129/59
--- NOTE | 2018-05-09 13:18 | DS ---
CC: Dr. Kelley * DISCHARGE SUMMARY: DATE OF ADMISSION: 05/04/18 DATE OF DISCHARGE: 05/09/18 PRIMARY CARE PROVIDER: Dr. Kelley. ATTENDING PROVIDER: Dr. Montesinos * (DICTATED BY SARA ISIDRO NP) PRIMARY DIAGNOSES: 1. Chronic obstructive pulmonary disease exacerbation. 2. Influenza A. 3. Hypertension. SECONDARY DIAGNOSES: 1. History of upper GI bleed. 2. Hyperlipidemia. 3. Gastroesophageal reflux disease. 4. Coronary artery disease with history of myocardial infarction. 5. History of stroke. 6. Anxiety. CONSULTATIONS WHILE IN THE HOSPITAL: No consultations. PROCEDURES WHILE IN THE HOSPITAL: No procedures. IMAGES WHILE IN THE HOSPITAL: Chest x-ray: Impression: Hyperinflation, no active cardiopulmonary disease. DISCHARGE HOME MEDICATIONS: [place] Medications: 1. Prednisone 50 mg p.o. daily. The patient will be instructed on taper. 2. Azithromycin 250 mg p.o. daily x1 more dose on 05/10/18. 3. Mucinex 600 mg p.o. b.i.d. p.r.n. 4. DuoNeb 1 inhalation q.4 hours while awake p.r.n. Continued Home Medications: 1. Multivitamin 1 tablet p.o. daily. 2. Metoprolol 50 mg p.o. daily. 3. Advair 1 puff inhalation b.i.d. 4. Rajani 180 p.o. daily p.r.n. 5. Aspirin 81 mg p.o. daily. 6. Albuterol 2 puffs inhalation q.4 hours p.r.n. 7. Tylenol 650 mg p.o. q.4 hours p.r.n. 8. Hydroxyzine 25 mg p.o. q.6 hours p.r.n. anxiety. 9. Amlodipine 10 mg p.o. daily. 10. Spiriva 1 cap inhalation daily. 11. Omeprazole 20 mg p.o. daily. 12. Fish oil 2 caps p.o. daily. Discontinued Home Medications: No home medications were discontinued. Changed Home Medications: No home medications were changed. HISTORY OF PRESENT ILLNESS/HOSPITAL COURSE: Mrs. Sanders is a 67-year-old female with a past medical history significant for COPD, hypertension, hyperlipidemia, GERD, CAD, history of [place], history of stroke, anxiety, history of GI bleed who presented to the emergency department on 05/04/18 with complaints of general illness for about 1 week. Please see history and physical dictated by Dr. Suleiman Ni for complete summary of events leading up to the patient's hospitalization, but in short, patient had been coughing for about 1 week. She was seen at [facility] and started on prednisone and felt somewhat better. On , she suddenly had worsening dyspnea and severe cough; therefore, she presented to the emergency room. While in the emergency room, it was noted that the patient was requiring oxygen, was positive for flu A, and was hypertensive. Therefore, the hospital team has opted to admit and patient was admitted to medical floor. During this hospitalization, patient had received Tamiflu for this complete course. She has also been on droplet precautions. She initially was receiving IV steroid and was successfully transitioned to p.o. steroid. She has been receiving DuoNebs and supplemental oxygen. Patient remained afebrile during her hospital stay, but due to patient's history of COPD and slow recovery from illness, azithromycin was added to the patient's medication regimen as she was also reporting yellow and green sputum and the azithromycin has pro- inflammatory benefits for her COPD exacerbation. Patient has greatly improved as she is no longer requiring oxygen at rest, but does need oxygen with exertion. Patient feels ready for discharge today. Patient is stable for discharge home today. REVIEW OF SYSTEMS: Patient reports infrequent cough. She reports that this has improved since admission. Patient reports some shortness of breath with exertion. She denies shortness of breath at rest or with lying flat. Patient denies muscle aches, joint aches, fever, chills, chest pain, palpitations, nausea, vomiting, or diarrhea. A 12-point review of systems was completed and all were negative. PHYSICAL EXAMINATION: Vital Signs: Temperature 97.2, HR 75, RR 18, O2 saturation 100% on 2 L, BP 151/79. General: Mrs. Sanders is a 67-year-old female who is sitting in bed, appears in no acute distress, appears stated age. HEENT: EOMs intact. PERRLA. Oral mucosa is moist without lesions. Posterior pharynx is clear and free from exudate, erythema, lesions. Neck: Supple. No lymphadenopathy. Respiratory: Patient has sporadic wheezing, mildly decreased aeration, but improved from previous exam. No rhonchi or rales. Cardiac: S1 and S2 present. Regular rate and rhythm. No murmurs, rubs , or gallops. Abdomen: Soft, nontender, bowel sounds x4. Extremities: No edema. No clubbing or cyanosis. No pain or deformity. Skin: Skin is intact. Neuro: No focal deficits or weakness. Strength is 5/5 in upper and lower extremities. Patient is ambulating with a steady gait. LABORATORY DATA: WBC 8.4, hemoglobin 15.1, hematocrit is 45, and platelets 172. Sodium 135, potassium 4.3, chloride 97, carbon dioxide 33, BUN 20, creatinine 0.72, glucose 169. DISCHARGE PLAN/FOLLOWUP: 1. Chronic obstructive pulmonary disease exacerbation: Secondary to influenza A. Patient should continue her home inhalers as same. Patient will be discharged with a nebulizer machine and DuoNebs, which she should use as needed. Patient will also be discharged with one more dose of azithromycin and to complete a 5-day course. Patient will also be discharged with prednisone taper. I have encouraged patient to stop smoking. I have encouraged patient to follow up with her primary care next week. 2. Influenza A: As mentioned above, this is the precipitating factor to her chronic obstructive pulmonary disease exacerbation. Patient completed a course of Tamiflu. I have encouraged patient to stay hydrated and monitor symptoms for new and worsening conditions. 3. Anxiety: Patient has tolerated Atarax well. Therefore, patient should continue Atarax the same. 4. Hypertension: Patient has been on home doses of amlodipine and metoprolol while inpatient. Patient has been mildly hypertensive, but I am hesitant to add any agents given the patient's acute illness. Therefore, I have encouraged patient to take her blood pressure at home and follow up with her primary care next week. 5. Hyperlipidemia: Patient should follow up with her primary care regarding further evaluation of medication if needed. 6. Gastroesophageal reflux disease: Patient should continue her home medications the same. 7. Coronary artery disease: Patient should continue her amlodipine, metoprolol , and aspirin. Patient should stop smoking. 8. History of myocardial infarction: See coronary artery disease. 9. History of stroke: Continue aspirin 81 mg daily. 10. History of upper GI bleed: Patient currently shows no signs of upper GI bleed. Patient should refrain from using NSAIDs and drinking alcohol. 11. Education: Patient was educated on new and worsening symptoms and when to return to the emergency room. Patient states understanding. PLAN: This plan was discussed with my attending, Dr. Montesinos, who agrees with my plan. TIME SPENT: Approximately 35 minutes were spent on this discharge, greater than half that time was spent [id number] with the patient discussing discharge plan and instructions. SARA ISIDRO, MARC [id number]/CPS #: [id number] VINICIUS
== END 2018-05-09 13:25 | disposition home or self-care (01) | DRG 192 ==
LOC: ED 02:54 → MED 04:50
PROVIDERS: ADMIT Internal Medicine; ATTEND Student in an Organized Health Care Education/Training Program
DX: J44.1 Chronic obstructive pulmonary disease with (acute) exacerbation (principal); J11.1 Influenza due to unidentified influenza virus with other respiratory manifestations; I25.10 Atherosclerotic heart disease of native coronary artery without angina pectoris; I11.9 Hypertensive heart disease without heart failure; E78.5 Hyperlipidemia, unspecified; K21.9 Gastro-esophageal reflux disease without esophagitis; F41.9 Anxiety disorder, unspecified; F17.210 Nicotine dependence, cigarettes, uncomplicated; Z86.73 Personal history of transient ischemic attack (TIA), and cerebral infarction without residual deficits; I25.2 Old myocardial infarction; Z80.0 Family history of malignant neoplasm of digestive organs; Z80.3 Family history of malignant neoplasm of breast; Z82.5 Family history of asthma and other chronic lower respiratory diseases
CPT/HCPCS: 36415; 71045; 80048; 80053; 82803; 83605; 84484; 85025; 87040; 93005; 94640; 99284; A9270-GY; J1644; J2920; J2930; J7512; J7611

== ENCOUNTER 2018-11-21 11:20 | Inpatient (IN) | payer MEDICARE ==
--- OUTSIDE RECORDS SUMMARY | 2018-11-21 11:37 | XMS REPORT | Summary of Care ---
:1950 Author Organization [facility] Address [address] [place] [address] Care Team Providers Name Role Phone Claire Kelley MD Primary Care Provider Reason for Visit Reason Comments Check Up pt c/o sob D/t COPD has been using nebulizer and breathing treatments with no reliefe , pt also has cough productive clear mucus, pt has labored breathing Encounter Details Date Type Department Care Team Description 11/18/2018 Office Visit [place] K[place] Kelley with acute Practice MD Claire exacerbation ([facility]) [address] (Primary Dx) [place] [address] [place] [address] [phone] Allergies Active Allergy Reactions Severity Noted Date Comments Latex Other 12/20/2008 Niacin, Antihyperlipidemic Musculoskeletal 01/07/2013 Myalgia, chest pain Statins Musculoskeletal 12/14/2010 myalgia documented as of this encounter (statuses as of 11/18/2018) Medications Medication Sig Dispensed Refills Start End Date Status Date Elkader-3 Fatty Acids Take 2 Caps by 0 Active (OMEGA 3) 1200 MG mouth TWICE Oral Cap DAILY. fexofenadine Take 180 mg by 0 Active (DANNIE) 180 MG mouth DAILY. Oral Tab acetaminophen Take 650 mg by 0 Active (TYLENOL) 325 MG mouth EVERY Oral Tab FOUR HOURS NEEDED for Pain. ASPIRIN 81 PO Take by mouth. 0 Active Multiple Take by mouth. 0 Active Vitamins-Minerals (MULTIVITAMIN ADULT PO) amLodipine Take 1 Tab by 30 Tab 5 Active (NORVASC) 5 MG Oral mouth DAILY. 9 Tab hydrOXYzine HCL Take 1 Tab by 60 Tab 3 Active (ATARAX) 25 MG Oral mouth EVERY SIX 9 Tab HOURS NEEDED (itching). metoprolol Take 1 Tab by 30 Tab 5 Active succinate (TOPROL mouth DAILY. 9 XL) 50 MG Oral TABLET SR 24 HR Omeprazole 20 MG Take 1 Tab by 30 Tab 5 Active Oral Tab EC mouth DAILY. 9 cyclobenzaprine Take 1 Tab by 60 Tab 0 Active (FLEXERIL) 10 MG mouth EVERY 9 Oral Tab BEDTIME NEEDED (muscle spasm). SPIRIVA RESPIMAT TAKE 2 4 g 0 Active 2.5 MCG/ACT INHALATIONS 9 Inhalation Aero DAILY Soln BREO ELLIPTA 200-25 INHALE ONE PUFF 1 Each 1 Active MCG/INH Inhalation BY MOUTH EVERY 9 AEROSOL POWDER, DAY BREATH ACTIVATED montelukast TAKE ONE TABLET 30 Tab 1 Active (SINGULAIR) 10 MG BY MOUTH EVERY 9 Oral Tab DAY PROAIR HFA 108 (90 INHALE TWO 8.5 g 3 Active Base) MCG/ACT PUFFS BY MOUTH 9 Inhalation Aero EVERY 4 HOURS Soln NEEDED FOR WHEEZING azithromycin Take 2 pills on 6 Tab 0 Active (ZITHROMAX Z-GIOVANI) the first day 9 250 MG Oral Tab and 1 pill each day for 4 days albuterol-ipratropi 3 mL by 90 vial 5 Active um (DUO-NEB) Inhalation-SVN 9 0.5-2.5 (3) MG/3ML route EVERY SIX Inhalation Solution HOURS. predniSONE 60 mg Po QD for 27 Tab 0 Active (DELTASONE) 20 MG 3 days, 50 mg 9 Oral Tab PO QD for 3 days, 40 mg Po QD for 3 days, 20 mg PO QD fort 3 days, 10 mg - for 3 days albuterol-ipratropi 3 mL by 50 vial 5 11/19/19 Discontinued um (DUO-NEB) Inhalation-SVN 9 (Reorder) 0.5-2.5 (3) MG/3ML route EVERY Inhalation Solution FOUR HOURS NEEDED (wheezing). predniSONE Take 1 Tab by 65 Tab 0 11/19/19 Discontinued (DELTASONE) 10 MG mouth 12 04 Oral Tab DIRECTED. 60 mg for 3 days, 50 mg - 3 days, 40 mg - 3 days, 30 mg - 3 days, 20 mg - 3 days, 10 mg - 5 days predniSONE Take 1 Tab by 27 Tab 0 11/19/19 Discontinued (DELTASONE) 20 MG mouth 12 04 (Reorder) Oral Tab DIRECTED. 60 mg Po QD for 3 days, 50 mg PO QD for 3 days, 40 mg Po QD for 3 days, 20 mg PO QD fort 3 days, 10 mg - for 3 days Hospital, Clinic, or Other Ordered Dose Route Frequency Start Date End Date Status Facility Administered Medication albuterol (PROVENTIL, 2.5 mg IN-SVN NOW 10/03/2018 Active VENTOLIN) nebulizer unit dose (RT ADMIN) (2.5 MG/3ML) 0.083%Indications: COPD exacerbation (HCC) albuterol (PROVENTIL, 2.5 mg IN-SVN X1 11/18/2018 11/18/2018 Ended VENTOLIN) nebulizer unit dose (RT ADMIN) (2.5 MG/3ML) 0.083%Indications: COPD with acute exacerbation (HCC) documented as of this encounter (statuses as of 11/18/2018) Active Problems Problem Noted Date Urticaria 10/17/2011 Chronic urticaria 09/25/2011 Lung nodule 08/30/2011 Hypertension 02/19/2011 Tobacco abuse 12/20/2008 CAD (coronary artery disease) Overview: Cath- 1999 30% LAD COPD (chronic obstructive pulmonary disease) Osteopenia documented as of this encounter (statuses as of 11/18/2018) Resolved Problems Problem Noted Date Resolved Date Urticaria 08/08/2011 09/25/2011 documented as of this encounter (statuses as of 11/18/2018) Immunizations Name Administration Dates Next Due Influenza (IM) Preservative Free 02/20/2017, 12/15/2012, 12/01/2010, 12/20/2008 Influenza Vaccine High Dose 11/27/2017, 01/23/2016 Influenza Virus Vaccine Pres Free 6-35 11/27/2011 Months PNEUMOCOCCAL POLYSACCHARIDE VACCINE 09/21/2009 Pneumococcal Conjugate(13 Valent) 05/14/2016 TD Vaccine 02/01/2014 ZOSTER (ZOSTAVAX) VACCINE 08/24/2015 documented as of this encounter Social History Tobacco Use Types Packs/Day Years Used Date Current Every Day Smoker Cigarettes 1 40 Quit: 01/30/2016 Smokeless Tobacco: Never Used Alcohol Use Drinks/Week oz/Week Comments Yes 2 Cans of beer 2.0 Sex Assigned at Date Recorded Not on file Job Start Date Occupation Industry Not on file Not on file Not on file Travel History Travel Start Travel End No recent travel history available. documented as of this encounter Last Filed Vital Signs Vital Sign Reading Time Taken Comments Blood Pressure 132/60 11/18/2018 4:29 PM EDT Pulse 106 11/18/2018 4:29 PM EDT Temperature 36.6 11/18/2018 4:29 PM C (97.8 EDT F) Respiratory Rate - - Oxygen Saturation 98% 11/18/2018 4:29 PM EDT Inhaled Oxygen Concentration - - Weight 67.9 kg (149 lb 12.8 oz) 11/18/2018 4:29 PM EDT Height - - Body Mass Index 25.71 10/03/2018 2:57 PM EDT documented in this encounter Patient Instructions Patient InstructionsClaire Kelley MD - 11/18/2018 4:20 PM EDT1. Take Z pack as directed 2. Prednisone 60 mg (3 tablets) once a day for 3 days, than - 50 mg for 3 days ( 2.5 tablet), than- 40 mg for 3 days (2 tablets), , than - 30 mg fr 3 days (1.5 tablet), than 20 mg for 3 days (1 tablet),than 10 gm for 3 days (half a tablet) 3. Take Duo neb 1 vial Nebulized 4 times a day 4. Mucinex 600 mg 2 times a day 5. Follow up in 1 week 6. Sever shortness of breath - go to the ER documented in this encounter Progress Notes Claire Kelley MD - 11/18/2018 4:20 PM EDT PATIENT: Chantelle Sanders : 1950 DATE OF SERVICE: 11/18/2018 Subjective SUBJECTIVE: Chantelle Sanders is a 67-y.o. female who presents for evaluation of productive cough and wheezing. Symptoms began 1 week ago and are gradually worsening since that time. Past history is significant for chronic obstructive pulmonary disease and tobacco abuse. Past Medical History: Diagnosis Date CAD (coronary artery disease) Cath- 1999 30% LAD Carotid stenosis stent in L carotid COPD (chronic obstructive pulmonary disease) (HCC) Endometriosis CASEY HTN (hypertension) Hyperlipidemia Osteopenia Squamous cell carcinoma 12/31/11 L Index Finger Tubular adenoma nos 2001 Family History Problem Relation Age of Onset Heart Mother Diabetes Mother Stroke Mother Skin Cancer Mother Heart Father Cancer Father larynx Respiratory Father COPD, asthma Cancer Sister breast cancer Breast Cancer Sister Current Outpatient Medications Medication Sig acetaminophen (TYLENOL) 325 MG Oral Tab Take 650 mg by mouth EVERY FOUR HOURS NEEDED for Pain. albuterol-ipratropium (DUO-NEB) 0.5-2.5 (3) MG/3ML Inhalation Solution 3 mL by Inhalation-SVNroute EVERY SIX HOURS. amLodipine (NORVASC) 5 MG Oral Tab Take 1 Tab by mouth DAILY. ASPIRIN 81 PO Take by mouth. azithromycin (ZITHROMAX Z-GIOVANI) 250 MG Oral Tab Take 2 pills on the first day and 1 pill each day for 4 days BREO ELLIPTA 200-25 MCG/INH Inhalation AEROSOL POWDER, BREATH ACTIVATED INHALE ONE PUFF BY MOUTH EVERY DAY cyclobenzaprine (FLEXERIL) 10 MG Oral Tab Take 1 Tab by mouth EVERY BEDTIME NEEDED (musclespasm). fexofenadine (DANNIE) 180 MG Oral Tab Take 180 mg by mouth DAILY. hydrOXYzine HCL (ATARAX) 25 MG Oral Tab Take 1 Tab by mouth EVERY SIX HOURS NEEDED (itching). metoprolol succinate (TOPROL XL) 50 MG Oral TABLET SR 24 HR Take 1 Tab by mouth DAILY. montelukast (SINGULAIR) 10 MG Oral Tab TAKE ONE TABLET BY MOUTH EVERY DAY Multiple Vitamins-Minerals (MULTIVITAMIN ADULT PO) Take by mouth. Elkader-3 Fatty Acids (OMEGA 3) 1200 MG Oral Cap Take 2 Caps by mouth TWICE DAILY. Omeprazole 20 MG Oral Tab EC Take 1 Tab by mouth DAILY. predniSONE (DELTASONE) 20 MG Oral Tab 60 mg Po QD for 3 days, 50 mg PO QD for 3 days, 40 mg Po QD for 3 days, 20 mg PO QD fort 3 days, 10 mg - for 3 days PROAIR HFA 108 (90 Base) MCG/ACT Inhalation Aero Soln INHALE TWO PUFFS BY MOUTH EVERY 4 HOURSAS NEEDED FOR WHEEZING SPIRIVA RESPIMAT 2.5 MCG/ACT Inhalation Aero Soln TAKE 2 INHALATIONS DAILY Current Facility-Administered Medications Medication albuterol (PROVENTIL, VENTOLIN) nebulizer unit dose (RT ADMIN) (2.5 MG/ 3ML) 0.083% Allergies Allergen Reactions Latex Other Niaspan [Niacin, Antihyperlipidemic] Musculoskeletal Myalgia, chest pain Statins Musculoskeletal myalgia Social History Socioeconomic History Marital status: Spouse name: Not on file Number of children: Not on file Years of education: Not on file Highest education level: Not on file Occupational History Not on file Social Needs Financial resource strain: Not on file Food insecurity: Worry: Not on file Inability: Not on file Transportation needs: Medical: Not on file Non-medical: Not on file Tobacco Use Smoking status: Current Every Day Smoker Packs/day: 1.00 Years: 40.00 Pack years: 40.00 Types: Cigarettes Last attempt to quit: 01/30/2016 Years since quittin.8 Smokeless tobacco: Never Used Substance and Sexual Activity Alcohol use: Yes Alcohol/week: 2.0 standard drinks Types: 2 Cans of beer per week Drug use: No Sexual activity: Yes Partners: Male Lifestyle Physical activity: Days per week: Not on file Minutes per session: Not on file Stress: Not on file Relationships Social connections: Talks on phone: Not on file Gets together: Not on file Attends pentecostalism service: Not on file Active member of club or organization: Not on file Attends meetings of clubs or organizations: Not on file Relationship status: Not on file Intimate partner violence: Fear of current or ex partner: Not on file Emotionally abused: Not on file Physically abused: Not on file Forced sexual activity: Not on file Other Topics Concern Not on file Social History Narrative Lives in [place]. REVIEW OF SYSTEMS: All remaining review of systems was negative. Objective OBJECTIVE: BP 132/60 (BP Location: Left arm, Patient Position: Sitting) | Pulse 106 | Temp 97.8 F (36.6 C) | Wt 149 lb 12.8 oz (67.9 kg) | SpO2 98% | BMI 25.71 kg/m GENERAL: alert, fatigued, in mild to moderate respiratory distress. HEENT: neck without nodes, pharynx erythematous without exudate and sinuses nontender. LUNGS: Bilaterally reduced air entry, diffuse wheezing. After Albuterol breathing treatment - improved air entry,diffuse rhonchi/wheezing. HEART: regular rate and rhythm, S1, S2 normal, no murmur, click, rub or gallop. ICD-9-CM ICD-10-CM 1. COPD with acute exacerbation ([facility]) 491.21 J44.1 XR CHEST 2 VIEW PA AND LATERAL (STANDARD) albuterol (PROVENTIL, VENTOLIN) nebulizer unit dose (RT ADMIN) (2.5 MG/3ML) 0.083% Patient Instructions 1. Take Z pack as directed 2. Prednisone 60 mg (3 tablets) once a day for 3 days, than - 50 mg for 3 days ( 2.5 tablet), than- 40 mg for 3 days (2 tablets), , than - 30 mg fr 3 days (1.5 tablet), than 20 mg for 3 days (1 tablet),than 10 gm for 3 days (half a tablet) 3. Take Duo neb 1 vial Nebulized 4 times a day 4. Mucinex 600 mg 2 times a day 5. Follow up in 1 week 6. Sever shortness of breath - go to the ER. Author: Claire Kelley MD 11/18/2018 21:21 documented in this encounter Plan of Treatment Date Type Specialty Care Team Description 11/25/2018 Office Visit Family Practice Claire Kelley MD [facility] [place] [address] 12/03/2018 Office Visit Cardiology Dwight Malik MD [address] [place] [address] 12/29/2018 Lab Internal Medicine Name Type Priority Associated Diagnoses Order Schedule XR CHEST 2 VIEW PA AND Imaging Routine COPD with acute Ordered: 11/18/2018 LATERAL (STANDARD) exacerbation (HCC) Health Maintenance Due Date Last Done Comments ZOSTER IMMUNIZATION SERIES 10/19/2015 08/24/2015 (2 of 3) PNEUMOCOCCAL 65+YRS (2 of 2 05/14/2017 05/14/2016, 09/21/2009 - PPSV23) LUNG CANCER SCREENING 06/05/2017 06/05/2016, 08/21/2011 INFLUENZA VACCINE (#1) 2018 11/27/2017, 02/20/2017, 01/23/2016, Additional history exists MAMMOGRAM (SCREENING) 11/27/2018 11/27/2017, 08/31/2015, 08/31/2015, Additional history exists MEDICARE ANNUAL WELLNESS 11/27/2018 11/27/2017, 02/06/2016 VISIT (Postponed) DEPRESSION SCREENING 06/13/2019 06/12/2018 FALL RISK ASSESSMENT 06/13/2019 06/12/2018, 06/12/2018 DIABETES SCREENING 09/23/2019 09/22/2018, 03/04/2018, 09/26/2017, Additional history exists LIPID DISORDER SCREENING 09/23/2019 09/22/2018, 02/06/2016, 08/23/2015, Additional history exists COLONOSCOPY SCREENING 09/28/2019 09/27/2009 OSTEOPOROSIS SCREENING 09/06/2025 09/07/2015, 01/08/2011, 01/08/2011, Additional history exists HPV IMMUNIZATION SERIES Aged Out No longer eligible based on patient's age to complete this topic MENINGOCOCCAL VACCINE IMM Aged Out No longer eligible based on patient's age to complete this topic documented as of this encounter Goals Goal Patient Goal Associated Recent Patient-Stated? Author Type Problems Progress Blood Pressure Blood Pressure Hypertension 132/60 No Allie, < 140/90 (11/18/2018 Claire, 4:29 PM EDT) Note: Hypertension Care Plan Based on the patient's clinical history and according to JNC 8 guidelines target blood pressure goal is less than 140/90. Based on the patient's last blood pressure of BP: 140/88 the patient is at above goal. As your provider, it is important that I advise you regarding: your current medications and help you with any challenges you may face taking your medications as directed (ex. instructions, cost, side effects, and interactions). Important lifestyle changes: exercise, dietary sodium reduction and smoking cessation your clinical goals and how you can achieve success: exercise plan and smoking cessation medication management: adjusted medications as appropriate patient education/self-management tools provided: Yes To successfully manage my Hypertension I will: monitor my blood pressure daily, understanding that my goal is less than 140/ 90 per my healthcare provider's recommendation. I will schedule an appointment with my provider if consistent abnormal readings greater than 160/100. take medications every day as prescribed by my healthcare provider and if unable to take them I will discuss with my provider. monitor for symptoms of chest pain, chest tightness/pressure, irregular heartbeat, persistent dizziness, radiating arm pain, and neck or jaw pain. If any of these symptoms are noticed I will seek medical attention immediately by calling 911 exercise/walk 30 minutes 5 day(s) per week. If I experience chest pain, chest tightness, or shortness of breath, I will seek medical attention immediately. follow a diet rich in fruits, vegetables, and low-fat dairy products with reduced content of saturated & total fat. I will reduce my sodium intake daily. An example is the DASH diet. To obtain more information please refer to the DASH Eating Plan listed in Educational Resources. record my blood pressure results. [employer] is safe and secure way for you to do this in your medical record online. limit alcohol consumption. For men two drinks per day and women one drink per day. if currently smoking, will discuss how to quit smoking with my healthcare provider and work towards quitting. Educational Resources: National Heart, Lung, & Blood [place] http://nhlbi.nih.gov/hbp/index.html The DASH Diet Eating Plan http://www.nhlbi.nih.gov/health/health-topics/ topics/dash/ Academy of Nutrition & DIetetics http://eatright.org National Smoking Cessation Site http://smokefree.gov Blood Pressure < Blood Pressure 132/60 (11/18/2018 No Claire Kelley, 140/90 4:29 PM EDT) Note: This is an individualized treatment (blood pressure) goal for Chantelle Sanders: Displayed above (on the left) is your goal for blood pressure control. Your most recent blood pressure is also shown above, on the right. You should try to achieve blood pressures that are lower than your goal listed above (on the left). Smoking Cessation COPD No Claire Kelley MD Note: This is an individualized treatment (COPD) goal for Chantelle Sanders: Quit smoking immediately! Your provider has information and resources that may help you to quit. Lifestyle - Current Smoker Lifestyle Tobacco abuse No Calire Kelley MD Note: Smoking Cessation Plan Discussed smoking cessation with patient. Patient readiness to quit:yes Discussed smoking cessation plan according to AHRQ guidelines:counseled patient on the risks of tobacco use, advised patient to quit and offered support and discussed current use pattern My Quit Plan: My quit date is set for Notify my friends, family, and co-workers about decision to quit. Will ask for their support and understanding Remove tobacco products from my environment. I will ask people not to smoke around me or in my home. I will anticipate challenges at the beginning and will try not to be discouraged. To remember the benefits of quitting such as improved health, feeling better about myself, saving money, etc. Reducing stressors and avoiding triggers are essential keys to my success Finding ways to distract myself when I have the urge to smoke such as taking a walk, reading, playing a board game, putting together a puzzle, etc. Taking medications as my healthcare provider has advised to help alleviate the urge to smoke. If I am unable to take the medication, I will discuss further with my healthcare provider. Recognize reasons for relapse in my past attempts. What did and did not work for me Consider connecting with group, individual, or telephone counseling Keep immunizations current Lifestyle No Claire Kelley MD Note: This is an individualized lifestyle goal for Chantelle Sanders: Please be sure to keep up-to-date on recommended immunizations. For example, this would include a yearly influenza vaccine. Immunization status can be seen by looking at the Health Maintenance sections of your [facility], Plan of Care, and any After Visit Summaries. Take all prescribed medications as Self-management No Claire Kelley MD directed Note: This is an individualized self-management goal for Chantelle Sanders: Please take all prescribed medications as directed. 1. Do not skip doses. If you cannot afford your medications, talk with your doctor. 2. Use a pill reminder system such as a pill box if needed. Your pharmacist can help you with this. 3. Contact your Pharmacy 5 days before your medication runs out. If you cannot take your medications for any reasons, talk with your doctor. 4. Please bring all of your medication bottles and inhalers (or a list of all your medications/inhalers) with you to every visit. Potential barriers to meeting all of your care plan goals will continue to be addressed on an ongoing basis. documented as of this encounter Results Not on filedocumented in this encounter Visit Diagnoses Diagnosis COPD with acute exacerbation (HCC) - Primary Obstructive chronic bronchitis with exacerbation documented in this encounter Administered Medications Medication Order MAR Action Action Date Dose Rate Site albuterol (PROVENTIL, VENTOLIN) Given 11/18/2018 4:30 PM EDT 2.5 mg Other nebulizer unit dose (RT ADMIN) (2.5 MG/3ML) 0.083% 2.5 mg, Inhalation-SVN, X1, 1 dose, First dose on Sat11/18/18 at 1850 documented in this encounter Insurance Payer Benefit Plan / Subscriber ID Effective Dates Phone Address Type Group [facility] MEDICARE AAR MEDICARE xxxxxxxxx 2017-Present [facility] ADVANTAGE COMPLETE/[facility] PPO Guarantor Name Account Type Relation to Date of Phone Billing Patient Address Chantelle Sanders Personal/Family 1950 [address] (Home) [place], [place] [phone] (Work) documented as of this encounter"
[2018-11-21] MEDS ORDERED: Albuterol/Ipratropium NEB.SOL* Albuterol 2.5 MG/Ipratropium 0.5 MG 3 ML INH ONE ×2 (11:56→13:32)
[2018-11-21] MEDS ORDERED: Dexamethasone IV* 4 MG/ML 1 ML (4 MG) IV SLOW PU ONE (11:56)
--- NOTE | 2018-11-21 12:09 | ED ---
Shortness of Breath - HPI Summary HPI Summary: Pt is a 68 y/o F presenting to the ED with a chief complaint of shortness of breath initially onset 4 days ago with an exacerbation of her COPD. She saw her PCP on 11/18/18 who put her on a high dose of Prednisone at home. She c/o wheezing associated with the SOB, and a chronic cough with clear phlegm. Pt denies any fever, chills, erythema of eyes, sore throat, palpitations, CP, abdominal pain, N/V, dysuria, hematuria, myalgia, back pain, edema, rash, or dizziness. Sometimes lying flat aggravates her sx. She sleeps on 1 pillow at night, and has had some weight gain from the Prednisone. - History of Current Complaint Chief Complaint: EDShortnessOfBreath Time Seen by Provider: 11/21/18 11:47 Hx Obtained From: Patient Onset/Duration: Gradual Onset, Lasting Days, Still Present Timing: Constant Current Severity: Moderate Dyspnea At: Rest Aggravating Factors: Other - lying down Alleviating Factors: Nothing Associated Signs & Symptoms: Cough (Productive), Wheezing - Allergy/Home Medications Allergies/Adverse Reactions: Allergies Allergy/AdvReac Type Severity Reaction Status Date / Time hydralazine Allergy Severe See Comment Verified 11/21/18 11:26 latex Allergy Blisters Verified 11/21/18 11:26 Home Medications: Home Medications Albuterol inh POWDER (NF) [Proair Respiclick] 2 puff PO Q4HR PRN 11/21/18 [ History Confirmed 11/21/18] Albuterol/Ipratropium NEB.SABRINA* [Duoneb (Albuterol 2.5 MG/Ipratropium 0.5 MG)] 1 neb INH QID 11/21/18 [History Confirmed 11/21/18] Albuterol/Ipratropium NEB.SABRINA* [Duoneb (Albuterol 2.5 MG/Ipratropium 0.5 MG)] 3 ml INH Q4H PRN 11/21/18 [History Confirmed 11/21/18] Azithromycin TAB* [Zithromax TAB (Z-GIOVANI) 250 mg #6 tabs] 250 mg PO DAILY [History Confirmed 11/21/18] Cyclobenzaprine TAB* [Flexeril 10 MG TAB*] 10 mg PO BEDTIME PRN 11/21/18 [ History Confirmed 11/21/18] Fluticasone/Vilanterol [Breo Ellipta 200-25 Mcg INH] 1 inh PO DAILY 11/21/18 [ History Confirmed 11/21/18] Montelukast Sodium TAB* [Singulair TAB*] 10 mg PO DAILY 11/21/18 [History Confirmed 11/21/18] Omeprazole CAP (NF) [Prilosec CAP* 20 MG] 20 mg PO DAILY 11/21/18 [History Confirmed 11/21/18] amLODIPine TAB* [Norvasc 5 mg TAB*] 5 mg PO DAILY 11/21/18 [History Confirmed ] guaiFENesin ER TAB [Mucinex*] 600 mg PO BID 11/21/18 [History Confirmed 11/21/18 ] predniSONE [Prednisone 20 MG TAB] 50 mg PO DAILY 11/21/18 [History Confirmed 09/03] PMH/Surg Hx/FS Hx/Imm Hx Previously Healthy: No Endocrine/Hematology History: Denies: Hx Diabetes Cardiovascular History: Reports: Hx Angina, Hx Hypertension, Hx Myocardial Infarction, Hx Peripheral Vascular Disease, Other Cardiovascular Problems/ Disorders - angina Denies: Hx Congestive Heart Failure, Hx Pacemaker/ICD Respiratory History: Reports: Hx Asthma, Hx Chronic Obstructive Pulmonary Disease (COPD) GI History: Reports: Hx Diverticulosis, Hx Gall Bladder Disease, Hx Gastroesophageal Reflux Disease, Hx Gastrointestinal Bleed, Other GI Disorders - DIVERTICULITIS History: Reports: Hx Kidney Infection, Other Problems/Disorders - HX MILD RENAL INSUFFICIENCY Denies: Hx Renal Disease Musculoskeletal History: Reports: Hx Rheumatoid Arthritis Sensory History: Denies: Hx Contacts or Glasses, Hx Legally Blind, Hx Deafness, Hx Hearing Aid , Other Sensory Impairments Opthamlomology History: Denies: Hx Contacts or Glasses, Hx Legally Blind, Other Sensory Impairments Neurological History: Reports: Hx Headaches, Hx Transient Ischemic Attacks (TIA) Psychiatric History: Reports: Hx Anxiety Denies: Hx Panic Disorder - Cancer History Cancer Type, Location and Year: skin on finger--removed - Surgical History Surgery Procedure, Year, and Place: HYSTERECTOMY, OOPHRECTOMY, APENDECTOMY, CHOLECYSTECTOMY,TONSILECTOMY,URINARY TRACT SURGERY Hx Anesthesia Reactions: No - Immunization History Date of Tetanus Vaccine: current Date of Influenza Vaccine: 2016 Immunizations Up to Date: Yes Infectious Disease History: No Infectious Disease History: Denies: Traveled Outside the [place] in Last 30 Days - Family History Known Family History: Positive: Cardiac Disease, Hypertension, Diabetes, Respiratory Disease - COPD, Other - stroke - Social History Alcohol Use: Daily Alcohol Amount: 3 drinks every so often Hx Substance Use: No Substance Use Type: Reports: None Hx Tobacco Use: Yes Smoking Status (MU): Heavy Every Day Tobacco Smoker Type: Cigarettes Length of Time of Smoking/Using Tobacco: 50 years Have You Smoked in the Last Year: Yes Review of Systems Positive: Other - weight gain - from Prednisone. Negative: Fever, Chills Negative: Erythema Negative: Sore Throat Negative: Palpitations, Chest Pain Positive: Shortness Of Breath, Cough, Other - wheezing Negative: Abdominal Pain, Vomiting, Nausea Negative: dysuria, hematuria Negative: Myalgia, Edema Negative: Rash Neurological: Negative - dizziness All Other Systems Reviewed And Are Negative: Yes Physical Exam - Summary Physical Exam Summary: Constitutional: Well-developed, Well-nourished, Alert. (-) Distressed Skin: Warm, Dry HENT: Normocephalic; Atraumatic Eyes: Conjunctiva normal Neck: Musculoskeletal ROM normal neck. (-) JVD, (-) Stridor, (-) Tracheal deviation Cardio: Rhythm regular, rate normal, Heart sounds normal; Intact distal pulses; The pedal pulses are 2+ and symmetric. Radial pulses are 2+ and symmetric. (-) Murmur Pulmonary/Chest wall: Bilateral expiratory wheezes with a cough Abd: Soft, (-) tenderness, (-) Distension, (-) Guarding, (-) Rebound Musculoskeletal: (-) Edema Lymph: (-) Cervical adenopathy Neuro: Alert, Oriented x3 Psych: Mood and affect Normal Triage Information Reviewed: Yes Vital Signs On Initial Exam: Initial Vitals Temp Pulse Resp BP Pulse Ox 98.0 F 111 24 171/101 94 11/21/18 11:24 11/21/18 11:24 11/21/18 11:24 11/21/18 11:24 11/21/18 11:24 Vital Signs Reviewed: Yes Diagnostics - Vital Signs Vital Signs Temp Pulse Resp BP Pulse Ox 11/21/18 11:24 98.0 F 111 24 171/101 94 - Laboratory Result Diagrams: 11/21/18 12:13 11/21/18 12:13 Lab Statement: Any lab studies that have been ordered have been reviewed, and results considered in the medical decision making process. - Radiology CXR Radiology Interpretation Completed By: Radiologist Summary of Radiographic Findings: Stigmata of obstructive lung disease. No acute pulmonary or cardiac process evident. ED physician has reviewed this report. - EKG 1203 Cardiac Rate: Tachycardia - 108bpm EKG Rhythm: Sinus Tachycardia ST Segment: Normal Ectopy: None Summary of EKG Findings: EKG at 1208 shows sinus tachycardia with no STEMI. Course/Dx - Course Course Of Treatment: Pt is a 68 y/o F presenting to the ED with a chief complaint of shortness of breath initially onset 4 days ago with an exacerbation of her COPD. She c/o wheezing associated with the SOB, and a chronic cough with clear phlegm, and some weight gain from the Prednisone. Pt denies any fever, chills, erythema of eyes, sore throat, palpitations, CP, abdominal pain, N/V, dysuria, hematuria, myalgia, back pain, edema, rash, or dizziness. Pt has bilateral expiratory wheezes on exam. CXR shows: Stigmata of obstructive lung disease. No acute pulmonary or cardiac process evident. EKG at 1208 shows sinus tachycardia with no STEMI. In the ED course, the pt was given two Duonebs and 8mg of Decadron. The patient is failing outpatient management of her COPD, and outpatient PO use of steroids. The pt needs to be admitted for IV steroid administration. I spoke with Dr. Costa at 1330 about the pt. She will be admitting the pt for COPD exacerbation. - Diagnoses Provider Diagnoses: COPD exacerbation - Physician Notifications Discussed Care of Patient With: Abby Costa Time Discussed With Above Provider: 13:30 Instructed by Provider To: Admit As Inpatient - Critical Care Time Critical Care Time: 30-74 min - 35min Discharge ED - Sign-Out/Discharge Documenting (check all that apply): Patient Departure - Discharge Plan Condition: Stable Disposition: ADMITTED TO [facility] Referrals: Claire Kelley MD [Primary Care Provider] - - Attestation Statements Document Initiated by Scribe: Yes Documenting Scribe: Yissel Abreu Provider For Whom Scribe is Documenting (Include Credential): Amari Slaughter MD. Scribe Attestation: I, Yissel Abreu, scribed for Amari Slaughter MD. on 11/21/18 at 1634. Status of Scribe Document: Ready Consult Consult: [address] Costa about the pts present condition. She [place] [facility] [place]
[2018-11-21 12:28] LABS: ABS Eosinophils 0.1 10^3/ul (0-0.6); ABS Monocytes 0.4 10^3/ul (0-0.8); Eosinophil % 1.1 %; Hematocrit 44 % (35-47); Hemoglobin 14.8 g/dL (12.0-16.0); Lymphocyte % 10.2 %; Mean Corpuscular HGB Conc 34 g/dL (31-36); Mean Corpuscular Hemoglobin 32 pg (27-31); Mean Corpuscular Volume 94 fL (80-97); Mean Platelet Volume 8.2 fL (7.4-10.4); Platelet Count 208 10^3/uL (150-450); Red Blood Count 4.64 10^6 /uL (3.70-4.87); Red Cell Distribution Width 14 % (10-15); White Blood Count 9.5 10^3/uL (3.5-10.8)
[2018-11-21 12:46] LABS: Albumin 4.9 g/dL (3.2-5.2); Albumin/Globulin Ratio 2.1 (1-3); Calcium 10.1 mg/dL (8.6-10.3); EGFR African American 88.9 (>60); EGFR Non-African American 73.4 (>60); Globulin 2.3 g/dL (2-4); Potassium 3.9 mmol/L (3.5-5.0); Total Bilirubin 0.3 mg/dL (0.2-1.0); Total Protein 7.2 g/dL (6.4-8.9)
[2018-11-21] MEDS: Albuterol/Ipratropium NEB.SOL* Albuterol 2.5 MG/Ipratropium 0.5 MG 3 ML INH SCH ×2 (14:23→14:51)
[2018-11-21] MEDS ORDERED: Albuterol/Ipratropium NEB.SOL* Albuterol 2.5 MG/Ipratropium 0.5 MG 3 ML ONE (14:24)
[2018-11-21] MEDS ORDERED: hydrOXYzine HCL TAB* 25 MG PO PRN (14:33)
[2018-11-21] MEDS ORDERED: Cyclobenzaprine TAB* 10 MG PO PRN (14:33)
[2018-11-21] MEDS ORDERED: Acetaminophen TAB* 325 MG PO PRN (14:33)
[2018-11-21] MEDS ORDERED: NS 0.9% 1000 ML** 1,000 ML IV SCH ×2 (14:45→15:00)
[2018-11-21] MEDS ORDERED: Albuterol 2.5 MG/3 ML NEB.SOL* (0.083%) INH SCH (15:00)
[2018-11-21] MEDS ORDERED: Albuterol/Ipratropium NEB.SOL* Albuterol 2.5 MG/Ipratropium 0.5 MG 3 ML INH SCH (15:00)
[2018-11-21] MEDS ORDERED: Enoxaparin(*) 40 MG/0.4 ML SYR SUBCUT SCH (15:00)
[2018-11-21] MEDS: Enoxaparin(*) 40 MG/0.4 ML SYR SUBCUT SCH (15:44)
[2018-11-21] MEDS ORDERED: methylPREDNISolone 125 MG* 2 ML VIAL IV SCH (16:00)
--- NOTE | 2018-11-21 16:21 | HP ---
History of Present Illness - History of Present Illness Reason for Visit: Shortness of Breath History of Present Illness: 68 yo female with history of COPD and asthma, CAD, remote UT and stroke, anxiety , HTN, HLD, presented to ED with shortness of breath for 4 days duration. She had frequent COPD exacerbation this year, one in Apr with influenza infection, recent one was a few weeks ago and she just completed tapering dose of pred for total 18 days. She had gradual onset of shortness of breath after taking off steroid and worsening since Saturday. She also had longstanding productive cough with clear mucous phlegm. No chest pain, no palpitation, no swelling. She went to see PCP, pred 60mg daily, azithromycin for 5 days were prescribed. She felt symptoms not getting better thus came to ED. She is using O2 at home occasionally when she felt SOB. In ED, initial spO2 is 94%. she was given IV Dexa 8mg, Duoneb neb one cycle and 3 back to back cycles, her SOB symptoms improved temporarily. But her RR is high at 24. - Past Medical History Past Medical History: 1.COPD and asthma 2. HTN 3. HLD 4. GERD 5. CAD 6. history of UT 7. history of stroke 8. Anxiety 9. Upper GI bleed 08/2017 - Past Surgical History Past Surgical History: Left Carotid stent - Past Family History Past Family History: Father had COPD, of peritonitis Mother at age 93, One sister from pancreatic cancer, Another sister from breast cancer. - Past Social History Past Social History: , 1 daughter Smoking 1 PPD for 40 years. Social Drinker, 1-2 drink per day No recreational drugs. - Health Maintenance Health Maintenance: Last flu shot last year Pneumococcus vaccine due this year. Review of Systems - Review of Systems Constitutional: Negative: Fever, Chills, Sweats, Weakness, Malaise, Other Eyes: Negative: Pain, Vision Change, Conjunctivae Inflammation, Eyelid Inflammation, Redness, Other ENT: Negative: Ear Pain, Ear Discharge, Nose Pain, Nose Discharge, Nose Congestion, Mouth Pain, Mouth Swelling, Throat Pain, Throat Swelling, Other Respiratory: Positive: Cough, Shortness of Breath, SOB with Excertion, Sputum, Wheezing Cardiovascular: Negative: Chest Pain, Palpitations, Orthopnea, Paroxysmal Noc. Dyspnea, Edema, Light Headedness, Other Gastrointestinal: Negative: Nausea, Vomiting, Abdominal Pain, Diarrhea, Constipation, Melena, Hematochezia, Other Genitourinary: Negative: Dysuria, Frequency, Incontinence, Hematuria, Retention , Other Musculoskeletal: Negative: Neck Pain, Shoulder Pain, Arm Pain, Back Pain, Hand Pain, Leg Pain, Foot Pain, Other Skin: Negative: Rash, Lesions, Grupo, Bruising, Other Neurological: Negative: Weakness, Numbness, Incoordination, Change in Speech, Confusion, Seizures, Other - Medications/Allergies Allergies/Adverse Reactions: Allergies Allergy/AdvReac Type Severity Reaction Status Date / Time hydralazine Allergy Severe See Comment Verified 11/21/18 11:26 latex Allergy Blisters Verified 11/21/18 11:26 Medications: Home Medications Amlodipine Besylate (Norvasc Tab*) 5 mg PO DAILY [facility] Aspirin (Aspirin Ec Tab*) 81 mg PO DAILY [facility] Azithromycin (Zithromax Tab*) 250 mg PO DAILY [facility] D4now Cyclobenzaprine HCl (Flexeril Tab*) 10 mg PO BEDTIME PRN Guaifenesin (Mucinex*) 600 mg PO BID [facility] Hydroxyzine HCl (Atarax Tab*) 25 mg PO Q6HR PRN PRN Reason: ITCHING Metoprolol Succinate (Toprol Xl Tab*) 50 mg PO DAILY [facility] Mometasone Furoate/Formoterol Fumar (Dulera 200/5 Mdi*) 2 puff INH BID [facility] Montelukast Sodium (Singulair Tab*) 10 mg PO DAILY [facility] Multivitamins/Minerals (Theragran/Minerals Tab*) 1 tab PO DAILY [facility] Prilosec 20mg daily Prednisone 60mg po D4 now Proair 1 puff Q4h prn Spiriva 2 cap inhalation daily Rajani 1 tab po daily Current Medications Acetaminophen (Tylenol Tab*) 650 mg PO Q4H PRN PRN Reason: FEVER/PAIN Albuterol/Ipratropium (Duoneb (Albuterol 2.5 Mg/Ipratropium 0.5 Mg)) 1 neb INH [id number] AWAKE [facility] Last Admin: 11/21/18 15:39 Dose: Not Given Amlodipine Besylate (Norvasc Tab*) 5 mg PO DAILY [facility] Aspirin (Aspirin Ec Tab*) 81 mg PO DAILY [facility] Azithromycin (Zithromax Tab*) 250 mg PO DAILY [facility] Stop: 11/22/18 12:00 Cyclobenzaprine HCl (Flexeril Tab*) 10 mg PO BEDTIME PRN PRN Reason: SPASMS - MUSCLE Enoxaparin Sodium (Lovenox(*)) 40 mg SUBCUT Q24H [facility] Last Admin: 11/21/18 15:44 Dose: 40 mg Guaifenesin (Mucinex*) 600 mg PO BID [facility] Hydroxyzine HCl (Atarax Tab*) 25 mg PO Q6HR PRN PRN Reason: ITCHING Sodium Chloride (Ns 0.9% 1000 Ml) 1,000 mls @ 500 mls/hr IV PER RATE [facility] Stop: 11/22/18 16:44 Methylprednisolone Sodium Succinate (Solu-Medrol 125mg *) 40 mg IV Q8H [facility] Metoprolol Succinate (Toprol Xl Tab*) 50 mg PO DAILY [facility] Mometasone Furoate/Formoterol Fumar (Dulera 200/5 Mdi*) 2 puff INH BID [facility] Montelukast Sodium (Singulair Tab*) 10 mg PO DAILY [facility] Multivitamins/Minerals (Theragran/Minerals Tab*) 1 tab PO DAILY [facility] Nicotine (Nicotine Patch 21 Mg/24 Hr*) 1 patch TRANSDERM DAILY@0800 [facility] Pantoprazole Sodium (Protonix Tab*) 40 mg PO DAILY [facility] Pharmacy Profile Note (Nicotine Patch Removal Note*) 1 note PATCH OFF 2100 [facility] Exam Vital Signs: Vital Signs (72 hours) 11/21/18 11/21/18 11/21/18 11:24 11:46 11:47 Temperature 98.0 F Pulse Rate 111 116 114 Respiratory 24 Rate Blood Pressure 171/101 157/115 (mmHg) O2 Sat by Pulse 94 94 94 Oximetry 11/21/18 11/21/18 11/21/18 12:00 12:10 12:20 Temperature Pulse Rate 113 108 107 Respiratory 19 22 18 Rate Blood Pressure 143/94 (mmHg) O2 Sat by Pulse 93 94 98 Oximetry 11/21/18 11/21/18 11/21/18 12:55 13:00 13:56 Temperature Pulse Rate 111 111 114 Respiratory 23 24 27 Rate Blood Pressure 143/111 167/98 (mmHg) O2 Sat by Pulse 92 93 92 Oximetry 11/21/18 11/21/18 11/21/18 14:00 14:10 14:56 Temperature Pulse Rate 118 118 130 Respiratory 21 18 24 Rate Blood Pressure (mmHg) O2 Sat by Pulse 93 99 98 Oximetry 11/21/18 15:00 Temperature Pulse Rate 131 Respiratory 22 Rate Blood Pressure (mmHg) O2 Sat by Pulse 98 Oximetry Exam: General - sitting up in bed, rapid breathing, breathing with a straw, spoke in phrases Eyes - PERRLA, EOM intact HEENT- no abnormality Lymph Nodes - No lymphadenopathy Cardiovascular - RRR no m/r/g, no JVD, no carotid bruits Lungs - widespread wheezes over bilateral lungs, no crackles Skin - No rashes, skin warm and dry, no erythematous areas Abdomen - Normal bowel sounds, abdomen soft and nontender Extremeties - No edema, cyanosis or clubbing Musculo Skeletal - 5/5 strength, normal range of motion, no swollen or erythematous joints. Neurological Alert and oriented x 3, CN 2-12 grossly intact. Psychiatry- mood stable Assessment/Plan - Assessment/Plan Assessment: 68 y/o female with history of COPD and asthma, admitted for SOB for 4 days. She was found to have widespread wheezes, increased respiratory rate; ABG shows hypoxia but no CO2 retention, no infection noted in CXR or in WBC. She is having a COPD/asthma attack likely triggered by active smoking. Plan: 1. COPD/asthma exacerbation - admit to general [facility] - ABG room air showed pO2 69 with CO2 retention - put on InO2 despite spO2>92% - IV methylpred 40mg tid - Duoneb Q4h scheduled - no infection seen in CXR, CBC; complete azithromycin 5 day course 2. Elevated Lactic Acid - Initial lactic acid 3 - Likely due to hypoxia, hypovolemia - IV NS 2L over next 4 hours - repeat lactic acid today 3. Tobacco use disorder - start nicotine patch 4. DVT prophylaxis - score 2, sq Lovenox Attestation Documenting Resident: Kayy Davidson Supervising Physician: Navid Persaud Attending/Supervising Physician Comment: Seen and examined with Dr. Davidson, agree with plan as outlined in her note. 68 F pw progressive SOB in setting of failed outpatient steroids. 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 COPD exacerbation with hypoxia but NOT hypercarbia Steroids, azithromycin, oxygen therapy Tachycardia in setting of respiratory work and multiple albuterol treatments. Change to xopenex Lactic acidosis suspected in setting hypoxia NOT sepsis. Fluids to replace insensible losses and ensure euvolemia. Repeat LA in 2 hours now that patient is on oxygen Attestation: This service has been performed in part by a resident under the direction of a teaching physician.I, Navid Persaud, performed the service, or was physically present during the critical, or morrow portions of the service, furnished by the resident. I participated in the management of the patient.
[2018-11-21 17:11] LABS: Influenza A Molecular NEGATIVE (Negative); Influenza B Molecular NEGATIVE (Negative)
[2018-11-21] MEDS: Levalbuterol 1.25MG/0.5ML NEB INH SCH ×2 (19:35→23:49)
[2018-11-21] MEDS ORDERED: NS 0.9% IV ONE (20:00)
[2018-11-21] MEDS ORDERED: Iohexol 350* (CONTRAST) 500 ML MDV IV ONE (20:24)
[2018-11-21] MEDS: Mometasone/Formoter 200/5 MDI INH SCH (20:41)
[2018-11-21] MEDS: guaiFENesin ER TAB 600 MG PO SCH (21:09)
[2018-11-21] MEDS: Nicotine Patch Removal NOTE PATCH OFF SCH (21:21)
[2018-11-21] MEDS ORDERED: amLODIPine TAB* 5 MG PO ONE (23:16)
[2018-11-21] MEDS: NS 0.9% 1000 ML** 1,000 ML IV SCH (23:30)
[2018-11-21] MEDS ORDERED: amLODIPine TAB* 5 MG ONE (23:52)
[2018-11-22] MEDS: Levalbuterol 1.25MG/0.5ML NEB INH SCH ×6 (03:53→23:44)
[2018-11-22 05:17] LABS: ABS Lymphocytes 1.5 10^3/ul (1.0-4.8); Hematocrit 41 % (35-47); Lymphocyte % 12.1 %; Mean Corpuscular HGB Conc 34 g/dL (31-36); Mean Corpuscular Hemoglobin 32 pg (27-31); Mean Corpuscular Volume 93 fL (80-97); Mean Platelet Volume 8.3 fL (7.4-10.4); Nucleated Red Blood Cells % 0.1; Platelet Count 226 10^3/uL (150-450); Red Blood Count 4.42 10^6 /uL (3.70-4.87); Red Cell Distribution Width 14 % (10-15); White Blood Count 12.6 10^3/uL (3.5-10.8)
[2018-11-22 05:32] LABS: BUN/Creatinine Ratio 11.4 (8-20); Calcium 9.4 mg/dL (8.6-10.3); EGFR African American 100.7 (>60); EGFR Non-African American 83.2 (>60); Potassium 3.8 mmol/L (3.5-5.0)
[2018-11-22] MEDS ORDERED: NS 0.9% 1000 ML** 1,000 ML IV ONE (05:39)
[2018-11-22] MEDS: amLODIPine TAB* 5 MG PO SCH (08:41)
[2018-11-22] MEDS: Pantoprazole TAB * 40 MG TAB PO SCH (08:41)
[2018-11-22] MEDS: Montelukast Sodium TAB* 10 MG PO SCH (08:41)
[2018-11-22] MEDS: Aspirin EC TAB* 81 MG TAB.EC PO SCH (08:41)
[2018-11-22] MEDS: guaiFENesin ER TAB 600 MG PO SCH ×2 (08:41→21:22)
[2018-11-22] MEDS: Multivitamins/Minerals TAB PO SCH (08:41)
[2018-11-22] MEDS: Metoprolol Succinate XL TAB* 50 MG PO SCH (08:41)
[2018-11-22] MEDS: methylPREDNISolone 125 MG* 2 ML VIAL IV SCH ×2 (08:44→16:21)
[2018-11-22] MEDS: Mometasone/Formoter 200/5 MDI INH SCH ×2 (08:48→19:17)
[2018-11-22] MEDS: Nicotine PATCH 21 MG/24 HR* PATCH TRANSDERM SCH (08:55)
[2018-11-22] MEDS ORDERED: Azithromycin TAB* 250 MG PO SCH (09:00)
[2018-11-22] MEDS: NS 0.9% 1000 ML** 1,000 ML IV SCH (11:08)
[2018-11-22] MEDS: Enoxaparin(*) 40 MG/0.4 ML SYR SUBCUT SCH (16:20)
--- NOTE | 2018-11-22 16:42 | PN ---
Subjective Date of Service: 11/22/18 Interval History: SOB this AM but feeling much better since admission Becomes much shorter of breath when walking to commode Cough incraesed but non-productive Denies CP, N/V, LH Events from overnight reviewed: Lactic up, received fluid bolus and CTA chest/abd/pelvis Transferred to ICU and placed on Vapotherm Repeat LA then downtrending Off vapotherm at 8AM today Objective Active Medications: Acetaminophen (Tylenol Tab*) 650 mg PO Q4H PRN PRN Reason: FEVER/PAIN Amlodipine Besylate (Norvasc Tab*) 5 mg PO DAILY [facility] Last Admin: 11/22/18 08:41 Dose: 5 mg Aspirin (Aspirin Ec Tab*) 81 mg PO DAILY [facility] Last Admin: 11/22/18 08:41 Dose: 81 mg Cyclobenzaprine HCl (Flexeril Tab*) 10 mg PO BEDTIME PRN PRN Reason: SPASMS - MUSCLE Enoxaparin Sodium (Lovenox(*)) 40 mg SUBCUT Q24H [facility] Last Admin: 11/22/18 16:20 Dose: 40 mg Guaifenesin (Mucinex*) 600 mg PO BID [facility] Last Admin: 11/22/18 08:41 Dose: 600 mg Hydroxyzine HCl (Atarax Tab*) 25 mg PO Q6HR PRN PRN Reason: ITCHING Sodium Chloride (Ns 0.9% 1000 Ml) 1,000 mls @ 500 mls/hr IV PER RATE [facility] Stop: 11/22/18 16:44 Levalbuterol HCl (Xopenex 1.25 Mg/0.5 Ml Neb.Maritza*) 1.25 mg INH [id number] AWAKE [facility] Last Admin: 11/22/18 15:40 Dose: 1.25 mg Methylprednisolone Sodium Succinate (Solu-Medrol 125mg *) 40 mg IV Q8H [facility] Last Admin: 11/22/18 16:21 Dose: 40 mg Metoprolol Succinate (Toprol Xl Tab*) 50 mg PO DAILY [facility] Last Admin: 11/22/18 08:41 Dose: 50 mg Mometasone Furoate/Formoterol Fumar (Dulera 200/5 Mdi*) 2 puff INH BID [facility] Last Admin: 11/22/18 08:48 Dose: 2 puff Montelukast Sodium (Singulair Tab*) 10 mg PO DAILY [facility] Last Admin: 11/22/18 08:41 Dose: 10 mg Multivitamins/Minerals (Theragran/Minerals Tab*) 1 tab PO DAILY [facility] Last Admin: 11/22/18 08:41 Dose: 1 tab Nicotine (Nicotine Patch 21 Mg/24 Hr*) 1 patch TRANSDERM DAILY@0800 [facility] Last Admin: 11/22/18 08:55 Dose: 1 patch Pantoprazole Sodium (Protonix Tab*) 40 mg PO DAILY [facility] Last Admin: 11/22/18 08:41 Dose: 40 mg Pharmacy Profile Note (Nicotine Patch Removal Note*) 1 note PATCH OFF 2100 [facility] Last Admin: 11/21/18 21:21 Dose: Not Given Vital Signs - 8 hr 11/22/18 11/22/18 11/22/18 08:48 09:00 09:31 Temperature Pulse Rate 104 109 95 Respiratory 19 27 20 Rate Blood Pressure 151/99 141/92 (mmHg) O2 Sat by Pulse 99 99 99 Oximetry 11/22/18 11/22/18 11/22/18 10:00 10:11 10:12 Temperature Pulse Rate 104 101 102 Respiratory 20 24 20 Rate Blood Pressure 183/111 186/100 (mmHg) O2 Sat by Pulse 91 93 97 Oximetry 11/22/18 11/22/18 11/22/18 10:30 11:00 11:02 Temperature Pulse Rate 95 95 93 Respiratory 14 30 17 Rate Blood Pressure 144/105 151/104 (mmHg) O2 Sat by Pulse 96 98 98 Oximetry 11/22/18 11/22/18 11/22/18 12:00 12:31 13:00 Temperature 97.7 F Pulse Rate 94 104 Respiratory 17 17 22 Rate Blood Pressure 148/92 151/91 (mmHg) O2 Sat by Pulse 99 95 Oximetry 11/22/18 11/22/18 11/22/18 13:30 14:00 14:30 Temperature Pulse Rate 102 101 114 Respiratory 25 24 29 Rate Blood Pressure 156/85 147/73 125/110 (mmHg) O2 Sat by Pulse 93 92 98 Oximetry 11/22/18 11/22/18 11/22/18 15:00 15:01 15:30 Temperature Pulse Rate 97 98 79 Respiratory 17 28 17 Rate Blood Pressure 128/84 130/68 (mmHg) O2 Sat by Pulse 96 97 100 Oximetry 09/10/0311/22/18 11/22/18 15:38 16:00 16:01 Temperature Pulse Rate 97 95 97 Respiratory 20 20 17 Rate Blood Pressure 127/75 (mmHg) O2 Sat by Pulse 98 96 97 Oximetry Oxygen Devices in Use Now: Nasal Cannula - 8L Appearance: Well appearing, talks in full sentences, NAD Eyes: No Scleral Icterus, PERRLA Ears/Nose/Mouth/Throat: NL Teeth, Lips, Gums, Clear Oropharnyx Neck: NL Appearance and Movements; NL JVP, Trachea Midline Respiratory: Symmetrical Chest Expansion and Respiratory Effort, - - good bilateral eair entry, prolonged expiratory phase, diffuse wheeze throughout Cardiovascular: NL Sounds; No Murmurs; No JVD, RRR Abdominal: NL Sounds; No Tenderness; No Distention, No Hepatosplenomegaly Lymphatic: No Cervical Adenopathy Extremities: No Edema, No Clubbing, Cyanosis, - - 1+ DP pulse on right, 2+ left Skin: No Rash or Ulcers Neurological: Alert and Oriented x 3 Result Diagrams: 11/22/18 05:08 11/22/18 05:08 Microbiology and Other Data: Microbiology 11/21/18 12:18 Aerobic Blood Culture - Preliminary Blood Venous No Growth Day 1 Anaerobic Blood Culture - Preliminary No Growth Day 1 11/21/18 12:13 Aerobic Blood Culture - Preliminary Blood Venous No Growth Day 1 Anaerobic Blood Culture - Preliminary No Growth Day 1 11/21/18 20:51 Nasal Screen MRSA (PCR) - Final Nasal Mrsa Not Detected Assess/Plan/Problems-Billing Assessment: 68 yo F h/o tobacco dependence, COPD pw hypoxic respiratory failure - Patient Problems (1) Respiratory failure with hypoxia Comment: Suspect predominantly COPD exacerbation, first albuterol prescription was 5 years prior and I doubt new onset asthma at 63yo. May have COPD/Asthma overlap. No PFTs available Titrate Oxygen Methyprednisolone 40mg TID Stop FSG while they are well controlled Dulera Xopenex Q4hrs Singular Transfer back to N 9.7.19 (2) Lactic acidosis Comment: Suspect in setting of hypoxia and increased work of breathing Improved with oxygen therapy, vapotherm, fluids and improved WOB (3) Hypertension Comment: norvasc metoprolol (4) Vascular abnormality Comment: Incidental finding on CT no evidence of intra abdominal ischemia or poor peripheral perfusion make known to patient and PCP to pursue outpatient follow up (5) Tobacco abuse disorder Comment: counseled cessation nicotine patch (6) DVT prophylaxis Comment: lovenox
[2018-11-22] MEDS ORDERED: Albuterol/Ipratropium NEB.SOL* Albuterol 2.5 MG/Ipratropium 0.5 MG 3 ML INH ONE (17:36)
[2018-11-22] MEDS ORDERED: Melatonin 3 MG TAB PO ONE (20:00)
[2018-11-22] MEDS: Nicotine Patch Removal NOTE PATCH OFF SCH (21:23)
[2018-11-23] MEDS: methylPREDNISolone 125 MG* 2 ML VIAL IV SCH ×3 (02:27→16:18)
[2018-11-23] MEDS: Levalbuterol 1.25MG/0.5ML NEB INH SCH ×6 (04:22→23:18)
[2018-11-23] MEDS: Mometasone/Formoter 200/5 MDI INH SCH ×2 (07:48→19:07)
[2018-11-23] MEDS: Multivitamins/Minerals TAB PO SCH (08:46)
[2018-11-23] MEDS: guaiFENesin ER TAB 600 MG PO SCH ×2 (08:46→20:47)
[2018-11-23] MEDS: Metoprolol Succinate XL TAB* 50 MG PO SCH (08:46)
[2018-11-23] MEDS: amLODIPine TAB* 5 MG PO SCH (08:46)
[2018-11-23] MEDS: Aspirin EC TAB* 81 MG TAB.EC PO SCH (08:46)
[2018-11-23] MEDS: Montelukast Sodium TAB* 10 MG PO SCH (08:46)
[2018-11-23] MEDS: Pantoprazole TAB * 40 MG TAB PO SCH (08:46)
[2018-11-23] MEDS: Nicotine PATCH 21 MG/24 HR* PATCH TRANSDERM SCH (08:47)
[2018-11-23] MEDS ORDERED: amLODIPine TAB* 5 MG PO ONE (15:40)
--- NOTE | 2018-11-23 15:52 | PN ---
Subjective Date of Service: 11/23/18 Interval History: Feels marginally better, indicates whenever she moves or get out of bed she gets very SOB denies chest pain, N/V, LH Objective Active Medications: Acetaminophen (Tylenol Tab*) 650 mg PO Q4H PRN PRN Reason: FEVER/PAIN Amlodipine Besylate (Norvasc Tab*) 10 mg PO DAILY [facility] Aspirin (Aspirin Ec Tab*) 81 mg PO DAILY [facility] Last Admin: 11/23/18 08:46 Dose: 81 mg Cyclobenzaprine HCl (Flexeril Tab*) 10 mg PO BEDTIME PRN PRN Reason: SPASMS - MUSCLE Enoxaparin Sodium (Lovenox(*)) 40 mg SUBCUT Q24H [facility] Last Admin: 11/22/18 16:20 Dose: 40 mg Guaifenesin (Mucinex*) 600 mg PO BID [facility] Last Admin: 11/23/18 08:46 Dose: 600 mg Hydroxyzine HCl (Atarax Tab*) 25 mg PO Q6HR PRN PRN Reason: ITCHING Levalbuterol HCl (Xopenex 1.25 Mg/0.5 Ml Neb.Maritza*) 1.25 mg INH [id number] AWAKE [facility] Last Admin: 11/23/18 15:29 Dose: 1.25 mg Methylprednisolone Sodium Succinate (Solu-Medrol 125mg *) 40 mg IV Q8H [facility] Last Admin: 11/23/18 08:46 Dose: 40 mg Metoprolol Succinate (Toprol Xl Tab*) 50 mg PO DAILY [facility] Last Admin: 11/23/18 08:46 Dose: 50 mg Mometasone Furoate/Formoterol Fumar (Dulera 200/5 Mdi*) 2 puff INH BID [facility] Last Admin: 11/23/18 07:48 Dose: 2 puff Montelukast Sodium (Singulair Tab*) 10 mg PO DAILY [facility] Last Admin: 11/23/18 08:46 Dose: 10 mg Multivitamins/Minerals (Theragran/Minerals Tab*) 1 tab PO DAILY [facility] Last Admin: 11/23/18 08:46 Dose: 1 tab Nicotine (Nicotine Patch 21 Mg/24 Hr*) 1 patch TRANSDERM DAILY@0800 [facility] Last Admin: 11/23/18 08:47 Dose: 1 patch Pantoprazole Sodium (Protonix Tab*) 40 mg PO DAILY [facility] Last Admin: 11/23/18 08:46 Dose: 40 mg Pharmacy Profile Note (Nicotine Patch Removal Note*) 1 note PATCH OFF 2100 [facility] Last Admin: 11/22/18 21:23 Dose: 1 note Vital Signs - 8 hr 11/23/18 11/23/18 11/23/18 08:00 08:01 09:00 Temperature Pulse Rate 84 91 90 Respiratory 22 19 16 Rate Blood Pressure 153/99 (mmHg) O2 Sat by Pulse 92 97 98 Oximetry 11/23/18 11/23/18 11/23/18 09:01 09:53 09:55 Temperature Pulse Rate 97 92 92 Respiratory 23 19 22 Rate Blood Pressure 183/104 205/117 200/99 (mmHg) O2 Sat by Pulse 98 97 98 Oximetry 11/23/18 11/23/18 11/23/18 10:00 11:00 11:56 Temperature Pulse Rate 90 79 103 Respiratory 16 17 22 Rate Blood Pressure 153/95 175/79 (mmHg) O2 Sat by Pulse 98 100 98 Oximetry 11/23/18 11/23/18 11/23/18 12:00 12:01 12:08 Temperature 98.2 F Pulse Rate 100 100 Respiratory 22 21 24 Rate Blood Pressure 139/105 (mmHg) O2 Sat by Pulse 98 96 Oximetry 11/23/18 11/23/18 11/23/18 13:00 13:01 14:00 Temperature Pulse Rate 107 90 Respiratory 19 24 19 Rate Blood Pressure 164/99 (mmHg) O2 Sat by Pulse 97 97 Oximetry 11/23/18 11/23/18 11/23/18 14:01 14:12 15:00 Temperature Pulse Rate 92 82 95 Respiratory 19 17 17 Rate Blood Pressure 140/101 140/101 (mmHg) O2 Sat by Pulse 98 99 98 Oximetry 11/23/18 11/23/18 15:01 15:30 Temperature Pulse Rate 94 94 Respiratory 17 18 Rate Blood Pressure 182/126 (mmHg) O2 Sat by Pulse 98 98 Oximetry Oxygen Devices in Use Now: High Flow Heated Nasal Cannula Appearance: NAD Eyes: No Scleral Icterus, PERRLA Ears/Nose/Mouth/Throat: NL Teeth, Lips, Gums, Clear Oropharnyx Neck: Trachea Midline Respiratory: Symmetrical Chest Expansion and Respiratory Effort, - - decreased air movement, prolonged expiratory phase, diffuse wheeze throughout Cardiovascular: NL Sounds; No Murmurs; No JVD, RRR Abdominal: NL Sounds; No Tenderness; No Distention, No Hepatosplenomegaly Lymphatic: No Cervical Adenopathy Extremities: No Edema Neurological: Alert and Oriented x 3 Result Diagrams: 11/22/18 05:08 11/22/18 05:08 Microbiology and Other Data: Microbiology 11/21/18 12:18 Aerobic Blood Culture - Preliminary Blood Venous No Growth Day 1 Anaerobic Blood Culture - Preliminary No Growth Day 1 11/21/18 12:13 Aerobic Blood Culture - Preliminary Blood Venous No Growth Day 1 Anaerobic Blood Culture - Preliminary No Growth Day 1 11/21/18 20:51 Nasal Screen MRSA (PCR) - Final Nasal Mrsa Not Detected Assess/Plan/Problems-Billing Assessment: 68 yo F h/o tobacco dependence, COPD pw hypoxic respiratory failure - Patient Problems (1) Respiratory failure with hypoxia Comment: Suspect predominantly COPD exacerbation, first albuterol prescription was 5 years prior and I doubt new onset asthma at 63yo. May have COPD/Asthma overlap. No PFTs available Pt did have long prednisone taper leading to hospital stay and that may not be consistent with the severity of this presentation (18 days steroids, then steroid pulse and now severe failure with significant WOB). No e/o of other underlying pathology on CT -pulm consult Titrate Oxygen Methyprednisolone 40mg TID Stop FSG while they are well controlled Dulera Xopenex Q4hrs Singular (2) Lactic acidosis Comment: Suspect in setting of hypoxia and increased work of breathing Improved with oxygen therapy, vapotherm, fluids and decreased WOB (3) Hypertension Comment: norvasc increased to 10 mg 9.8.19 metoprolol (4) Vascular abnormality Comment: Incidental finding on CT no evidence of intra abdominal ischemia or poor peripheral perfusion make known to patient and PCP to pursue outpatient follow up (5) Tobacco abuse disorder Comment: counseled cessation nicotine patch (6) DVT prophylaxis Comment: lovenox
[2018-11-23] MEDS: Enoxaparin(*) 40 MG/0.4 ML SYR SUBCUT SCH (16:18)
[2018-11-23] MEDS: Nicotine Patch Removal NOTE PATCH OFF SCH (20:49)
[2018-11-23] MEDS ORDERED: Labetalol IV* 5 MG/ML 20 ML VIAL IV PUSH ONE (21:41)
[2018-11-23] MEDS ORDERED: Temazepam CAP* 15 MG PO ONE (21:41)
[2018-11-24] MEDS: methylPREDNISolone 125 MG* 2 ML VIAL IV SCH ×3 (01:38→17:06)
[2018-11-24] MEDS: Levalbuterol 1.25MG/0.5ML NEB INH SCH ×6 (03:22→23:37)
[2018-11-24 06:40] LABS: ABS Lymphocytes 0.8 10^3/ul (1.0-4.8); ABS Monocytes 0.6 10^3/ul (0-0.8); ABS Neutrophils 11.7 10^3/ul (1.5-7.7); Hematocrit 43 % (35-47); Hemoglobin 14.8 g/dL (12.0-16.0); Lymphocyte % 6.1 %; Mean Corpuscular HGB Conc 34 g/dL (31-36); Mean Corpuscular Hemoglobin 32 pg (27-31); Mean Corpuscular Volume 93 fL (80-97); Mean Platelet Volume 8.1 fL (7.4-10.4); Platelet Count 214 10^3/uL (150-450); Red Blood Count 4.65 10^6 /uL (3.70-4.87); Red Cell Distribution Width 13 % (10-15)
[2018-11-24 06:57] LABS: Calcium 9.8 mg/dL (8.6-10.3); EGFR African American 99.1 (>60); EGFR Non-African American 81.9 (>60); Magnesium 2.3 mg/dL (1.9-2.7); Potassium 3.8 mmol/L (3.5-5.0)
[2018-11-24] MEDS: Mometasone/Formoter 200/5 MDI INH SCH ×2 (07:17→19:32)
--- NOTE | 2018-11-24 07:57 | PN ---
Subjective Date of Service: 11/24/18 Interval History: HD 4 11/24/18 68 F PMH tobacco dependence, HTN, anxiety, hx of CVA without deficit, likely COPD (no formal PFT on file) presented with hypoxic respiratory failure from COPD exacerbation in setting of continued tob use, lactic acidosis (now resolved ). Requiring vapotherm initially in the ICU. Overnight, no acute events, mild insomnia got Resotril, would avoid benzo class , offer trazodone on 11/24 PM, VSS, with HTN still on vapotherm , weaning limited by some anxiety overnight This morning, pleasant, but feeling a bit anxious with her BP numbers, eating and drinking and voiding well. Discussed tob cessation, also her underlying anxiety and depression, willing to trial control agent. Objective Active Medications: Acetaminophen (Tylenol Tab*) 650 mg PO Q4H PRN PRN Reason: FEVER/PAIN Amlodipine Besylate (Norvasc Tab*) 10 mg PO DAILY [facility] Aspirin (Aspirin Ec Tab*) 81 mg PO DAILY [facility] Last Admin: 11/23/18 08:46 Dose: 81 mg Cyclobenzaprine HCl (Flexeril Tab*) 10 mg PO BEDTIME PRN PRN Reason: SPASMS - MUSCLE Enoxaparin Sodium (Lovenox(*)) 40 mg SUBCUT Q24H [facility] Last Admin: 11/23/18 16:18 Dose: 40 mg Guaifenesin (Mucinex*) 600 mg PO BID [facility] Last Admin: 11/23/18 20:47 Dose: 600 mg Hydroxyzine HCl (Atarax Tab*) 25 mg PO Q6HR PRN PRN Reason: ITCHING Levalbuterol HCl (Xopenex 1.25 Mg/0.5 Ml Neb.Maritza*) 1.25 mg INH [id number] AWAKE [facility] Last Admin: 11/24/18 07:17 Dose: 1.25 mg Methylprednisolone Sodium Succinate (Solu-Medrol 125mg *) 40 mg IV Q8H [facility] Last Admin: 11/24/18 01:38 Dose: 40 mg Metoprolol Succinate (Toprol Xl Tab*) 50 mg PO DAILY [facility] Last Admin: 11/23/18 08:46 Dose: 50 mg Mometasone Furoate/Formoterol Fumar (Dulera 200/5 Mdi*) 2 puff INH BID [facility] Last Admin: 11/24/18 07:17 Dose: 2 puff Montelukast Sodium (Singulair Tab*) 10 mg PO DAILY [facility] Last Admin: 11/23/18 08:46 Dose: 10 mg Multivitamins/Minerals (Theragran/Minerals Tab*) 1 tab PO DAILY [facility] Last Admin: 11/23/18 08:46 Dose: 1 tab Nicotine (Nicotine Patch 21 Mg/24 Hr*) 1 patch TRANSDERM DAILY@0800 [facility] Last Admin: 11/23/18 08:47 Dose: 1 patch Pantoprazole Sodium (Protonix Tab*) 40 mg PO DAILY [facility] Last Admin: 11/23/18 08:46 Dose: 40 mg Pharmacy Profile Note (Nicotine Patch Removal Note*) 1 note PATCH OFF 2100 [facility] Last Admin: 11/23/18 20:49 Dose: 1 note Vital Signs - 8 hr 11/24/18 11/24/18 11/24/18 00:00 00:01 01:00 Temperature Pulse Rate 80 82 93 Respiratory 16 16 17 Rate Blood Pressure 186/133 (mmHg) O2 Sat by Pulse 99 97 93 Oximetry 11/24/18 11/24/18 11/24/18 01:45 02:00 02:18 Temperature Pulse Rate 95 85 Respiratory 18 22 21 Rate Blood Pressure 176/87 (mmHg) O2 Sat by Pulse 93 97 Oximetry 11/24/18 11/24/18 11/24/18 02:30 03:00 03:01 Temperature Pulse Rate 70 97 94 Respiratory 22 16 21 Rate Blood Pressure 122/69 191/112 199/111 (mmHg) O2 Sat by Pulse 98 96 97 Oximetry 11/24/18 11/24/18 11/24/18 03:03 03:30 04:00 Temperature Pulse Rate 90 76 93 Respiratory 21 14 21 Rate Blood Pressure 151/93 158/105 (mmHg) O2 Sat by Pulse 97 95 97 Oximetry 11/24/18 11/24/18 11/24/18 04:01 04:30 05:00 Temperature Pulse Rate 86 93 74 Respiratory 16 15 15 Rate Blood Pressure 165/100 (mmHg) O2 Sat by Pulse 95 96 98 Oximetry 11/24/18 11/24/18 11/24/18 05:01 05:30 06:00 Temperature Pulse Rate 74 84 76 Respiratory 14 16 15 Rate Blood Pressure 161/106 173/100 (mmHg) O2 Sat by Pulse 98 96 98 Oximetry 11/24/18 11/24/18 11/24/18 06:03 06:30 07:00 Temperature Pulse Rate 92 103 89 Respiratory 17 20 16 Rate Blood Pressure 178/153 182/116 170/111 (mmHg) O2 Sat by Pulse 97 93 93 Oximetry 11/24/18 11/24/18 11/24/18 07:19 07:30 07:50 Temperature 98 F Pulse Rate 87 79 Respiratory 18 22 Rate Blood Pressure 163/88 (mmHg) O2 Sat by Pulse 98 96 Oximetry Oxygen Devices in Use Now: High Flow Heated Nasal Cannula Appearance: Well woman in NAD Eyes: No Scleral Icterus, PERRLA Ears/Nose/Mouth/Throat: NL Teeth, Lips, Gums, Mucous Membranes Moist Respiratory: Symmetrical Chest Expansion and Respiratory Effort, - - Diffuse E wheeze Cardiovascular: NL Sounds; No Murmurs; No JVD, RRR Abdominal: NL Sounds; No Tenderness; No Distention, No Hepatosplenomegaly Lymphatic: No Cervical Adenopathy Extremities: No Edema Skin: No Rash or Ulcers Neurological: Alert and Oriented x 3 Result Diagrams: 11/24/18 06:20 11/24/18 06:20 Microbiology and Other Data: Microbiology 11/21/18 12:18 Aerobic Blood Culture - Preliminary Blood Venous No Growth Day 1 Anaerobic Blood Culture - Preliminary No Growth Day 1 11/21/18 12:13 Aerobic Blood Culture - Preliminary Blood Venous No Growth Day 1 Anaerobic Blood Culture - Preliminary No Growth Day 1 11/21/18 20:51 Nasal Screen MRSA (PCR) - Final Nasal Mrsa Not Detected Diagnostic Imaging: CTA on admission no PE CXR with no acute intrathoracic abnormality other than hyperinflation Assess/Plan/Problems-Billing Assessment: 68 F PMH tobacco dependence, HTN, anxiety, likely COPD (no formal PFT on file) presented with hypoxic respiratory failure from COPD exacerbation, lactic acidosis (now resolved). - Patient Problems (1) COPD exacerbation Current Visit: No Status: Acute Priority: High Code(s): J44.1 - CHRONIC OBSTRUCTIVE PULMONARY DISEASE W (ACUTE) EXACERBATION SNOMED Code(s): 203414715 Comment: - Unknown severity at baseline with no PFTS, prior tx with prednisone as outpt for long taper and with Azithro x 5 days (completed [employer]), add back Azithro for total 8 day, day 6/8 on 11/24. - Continue on IV Methylpred TID, wean to BID as tolerated - Pt is not currently optimized on LAMA, LABA, REJI, add Tiotropium today 11/24, continue Dulera and Levalbuterol nebs, currently on Montelukast - Still on vapotherm, weaning complicated by anxiety, change hydroxyzine to more frequent, seen anxiety plan - Pulm consult is in to determine if further optimization needed. (2) Hypertension Current Visit: Yes Status: Acute Code(s): I10 - ESSENTIAL (PRIMARY) HYPERTENSION SNOMED Code(s): 67710946 Comment: - Amlodipine 10mg, Metoprolol Succinate 50mg, watch closely today and add third agent PRN. (3) Lactic acidosis Current Visit: Yes Status: Acute Code(s): E87.2 - ACIDOSIS SNOMED Code(s) : 19687495 Comment: - Now resolved (4) Tobacco abuse disorder Current Visit: Yes Status: Acute Code(s): Z72.0 - TOBACCO USE SNOMED Code( s): 789808605 Comment: - Counseled cessation - Nicotine patch (5) Vascular abnormality Current Visit: Yes Status: Acute Comment: - Incidental finding on CT - no evidence of intra abdominal ischemia or poor peripheral perfusion - make known to patient and PCP to pursue outpatient follow up, optimize on asa , should also be on statin with hx of CVA, add on lipids (6) Anxiety Current Visit: No Status: Acute Code(s): F41.9 - ANXIETY DISORDER, UNSPECIFIED SNOMED Code(s): 06130012 Comment: -Continue Atarax, offer PRN Trazodone for sleep -Start Escitalopram QHS (7) DVT prophylaxis Current Visit: Yes Status: Acute Priority: High Code(s): IIR8836 - SNOMED Code(s): 391482779 Comment: - LMWH (8) Full code status Current Visit: No Status: Acute Code(s): Z78.9 - OTHER SPECIFIED HEALTH STATUS SNOMED Code(s): 678879671 Status and Disposition: Summary of order changes 11/24: Add Lexapro, Trial Trazodone over BZD QHS, Add Spiriva, optimize back to Anti-inflammaotry Azithro addnl three days, watch BP AM labs: Yes, Lipid panel added Currently in ICU awaiting wean to NC, on home PRN O2 though not standing.
[2018-11-24] MEDS ORDERED: Azithromycin TAB* 250 MG PO ONE (08:00)
[2018-11-24] MEDS: amLODIPine TAB* 5 MG PO SCH (08:55)
[2018-11-24] MEDS: Nicotine PATCH 21 MG/24 HR* PATCH TRANSDERM SCH (08:55)
[2018-11-24] MEDS: Aspirin EC TAB* 81 MG TAB.EC PO SCH (08:55)
[2018-11-24] MEDS: Multivitamins/Minerals TAB PO SCH (08:55)
[2018-11-24] MEDS: guaiFENesin ER TAB 600 MG PO SCH ×2 (08:55→20:44)
[2018-11-24] MEDS: Pantoprazole TAB * 40 MG TAB PO SCH (08:56)
[2018-11-24] MEDS: hydrOXYzine HCL TAB* 25 MG PO PRN ×2 (08:56→15:09)
[2018-11-24] MEDS: Metoprolol Succinate XL TAB* 50 MG PO SCH (08:56)
[2018-11-24] MEDS: Montelukast Sodium TAB* 10 MG PO SCH (08:56)
[2018-11-24] MEDS: SPIRIVA Respimat* (tiotropium) 2.5 mcg/inh Inhaler INH SCH (09:36)
[2018-11-24] MEDS: Enoxaparin(*) 40 MG/0.4 ML SYR SUBCUT SCH (15:09)
[2018-11-24] MEDS ORDERED: Hydrochlorothiazide TAB* 25 MG PO SCH (17:00)
[2018-11-24] MEDS: Escitalopram * 10 MG TAB PO SCH (20:44)
[2018-11-24] MEDS: Nicotine Patch Removal NOTE PATCH OFF SCH (20:45)
[2018-11-24] MEDS: traZODone TAB* 50 MG TAB PO PRN (20:51)
[2018-11-25] MEDS: methylPREDNISolone 125 MG* 2 ML VIAL IV SCH ×2 (01:38→08:39)
[2018-11-25] MEDS: Levalbuterol 1.25MG/0.5ML NEB INH SCH ×6 (03:44→23:18)
[2018-11-25 06:51] LABS: Hematocrit 44 % (35-47); Hemoglobin 15.1 g/dL (12.0-16.0); Mean Corpuscular HGB Conc 34 g/dL (31-36); Mean Corpuscular Hemoglobin 32 pg (27-31); Mean Corpuscular Volume 93 fL (80-97); Mean Platelet Volume 8.1 fL (7.4-10.4); Platelet Count 213 10^3/uL (150-450); Red Blood Count 4.73 10^6 /uL (3.70-4.87); Red Cell Distribution Width 13 % (10-15); White Blood Count 11.7 10^3/uL (3.5-10.8)
[2018-11-25] MEDS ORDERED: Hydrochlorothiazide TAB* 25 MG PO SCH (07:00)
[2018-11-25 07:07] LABS: BUN/Creatinine Ratio 31.2 (8-20); Calcium 9.6 mg/dL (8.6-10.3); EGFR African American 90.2 (>60); EGFR Non-African American 74.5 (>60); HDL Cholesterol 66.8 mg/dL; Potassium 3.4 mmol/L (3.5-5.0)
[2018-11-25] MEDS: Mometasone/Formoter 200/5 MDI INH SCH ×2 (07:17→20:21)
[2018-11-25] MEDS: SPIRIVA Respimat* (tiotropium) 2.5 mcg/inh Inhaler INH SCH (07:17)
[2018-11-25 07:23] LABS: ABS Lymphocytes 0.8 10^3/ul (1.0-4.8); ABS Monocytes 0.6 10^3/ul (0-0.8); ABS Neutrophils 10.2 10^3/ul (1.5-7.7); Lymphocyte % 6.8 %
[2018-11-25] MEDS: amLODIPine TAB* 5 MG PO SCH (08:37)
[2018-11-25] MEDS: guaiFENesin ER TAB 600 MG PO SCH ×2 (08:37→21:01)
[2018-11-25] MEDS: Aspirin EC TAB* 81 MG TAB.EC PO SCH (08:37)
[2018-11-25] MEDS: Azithromycin TAB* 250 MG PO SCH (08:37)
[2018-11-25] MEDS: Multivitamins/Minerals TAB PO SCH (08:37)
[2018-11-25] MEDS: Metoprolol Succinate XL TAB* 50 MG PO SCH (08:37)
[2018-11-25] MEDS: Pantoprazole TAB * 40 MG TAB PO SCH (08:37)
[2018-11-25] MEDS: Nicotine PATCH 21 MG/24 HR* PATCH TRANSDERM SCH (08:38)
[2018-11-25] MEDS: Montelukast Sodium TAB* 10 MG PO SCH (09:31)
--- NOTE | 2018-11-25 14:38 | PN ---
Subjective Date of Service: 11/25/18 Interval History: 68 y/o F with PMH of tobacco use, HTN, CVA with no residual deficit, COPD, Anxiety presented with hypoxic respiratory failure 2/2 COPD exacerbation and lactic acidosis. Was admitted to ICU. Transferred to floor yesterday. No acute overnight events. Has some anxiety and wheezes. Feels she is improving. She is eating well. Still on 4L of O2. Objective Active Medications: Acetaminophen (Tylenol Tab*) 650 mg PO Q4H PRN PRN Reason: FEVER/PAIN Amlodipine Besylate (Norvasc Tab*) 10 mg PO DAILY [facility] Last Admin: 11/25/18 08:37 Dose: 10 mg Aspirin (Aspirin Ec Tab*) 81 mg PO DAILY [facility] Last Admin: 11/25/18 08:37 Dose: 81 mg Azithromycin (Zithromax Tab*) 250 mg PO DAILY [facility] Stop: 11/26/18 09:01 Last Admin: 11/25/18 08:37 Dose: 250 mg Cyclobenzaprine HCl (Flexeril Tab*) 10 mg PO BEDTIME PRN PRN Reason: SPASMS - MUSCLE Enoxaparin Sodium (Lovenox(*)) 40 mg SUBCUT Q24H [facility] Last Admin: 11/24/18 15:09 Dose: 40 mg Escitalopram Oxalate (Lexapro *) 10 mg PO BEDTIME [facility] Last Admin: 11/24/18 20:44 Dose: 10 mg Guaifenesin (Mucinex*) 600 mg PO BID [facility] Last Admin: 11/25/18 08:37 Dose: 600 mg Hydrochlorothiazide (Hydrodiuril Tab*) 12.5 mg PO DAILY [facility] Hydroxyzine HCl (Atarax Tab*) 25 mg PO Q6HR PRN PRN Reason: ANXIETY Last Admin: 11/24/18 15:09 Dose: 25 mg Influenza Virus Vaccine (Fluarix Quad [id number] Syr) 0.5 ml IM .ONCE ONE Stop: 11/26/18 09:01 Levalbuterol HCl (Xopenex 1.25 Mg/0.5 Ml Neb.Maritza*) 1.25 mg INH [id number] AWAKE [facility] Last Admin: 11/25/18 11:33 Dose: 1.25 mg Metoprolol Succinate (Toprol Xl Tab*) 50 mg PO DAILY [facility] Last Admin: 11/25/18 08:37 Dose: 50 mg Mometasone Furoate/Formoterol Fumar (Dulera 200/5 Mdi*) 2 puff INH BID [facility] Last Admin: 11/25/18 07:17 Dose: 2 puff Montelukast Sodium (Singulair Tab*) 10 mg PO DAILY [facility] Last Admin: 11/25/18 09:31 Dose: 10 mg Multivitamins/Minerals (Theragran/Minerals Tab*) 1 tab PO DAILY [facility] Last Admin: 11/25/18 08:37 Dose: 1 tab Nicotine (Nicotine Patch 21 Mg/24 Hr*) 1 patch TRANSDERM DAILY@0800 [facility] Last Admin: 11/25/18 08:38 Dose: 1 patch Pantoprazole Sodium (Protonix Tab*) 40 mg PO DAILY [facility] Last Admin: 11/25/18 08:37 Dose: 40 mg Pharmacy Profile Note (Nicotine Patch Removal Note*) 1 note PATCH OFF 2100 [facility] Last Admin: 11/24/18 20:45 Dose: 1 note Pneumococcal Polyvalent Vaccine (Pneumococcal Vac 23-Polyvalent*) 0.5 ml IM .ONCE ONE Stop: 11/26/18 09:01 Prednisone (Deltasone Tab*) 40 mg PO BID [facility] Tiotropium [place] (Spiriva Respimat 2.5 Mcg) 2 puff INH DAILY [facility] Last Admin: 11/25/18 07:17 Dose: 2 puff Trazodone HCl (Desyrel Tab*) 50 mg PO BEDTIME PRN PRN Reason: INSOMNIA Last Admin: 11/24/18 20:51 Dose: 50 mg Vital Signs - 8 hr 11/25/18 11/25/18 11/25/18 07:21 07:47 08:30 Temperature 98.1 F Pulse Rate 87 92 Respiratory 18 18 18 Rate Blood Pressure 138/74 (mmHg) O2 Sat by Pulse 99 98 Oximetry 11/25/18 11/25/18 10:55 11:35 Temperature 97.8 F Pulse Rate 82 85 Respiratory 18 18 Rate Blood Pressure 135/64 (mmHg) O2 Sat by Pulse 98 99 Oximetry Oxygen Devices in Use Now: Nasal Cannula Exam: Patient is sitting on a bed and having her lunch with nasal canula. HEENT: Normocephalic and atraumatic Lungs: Wheezes heard over all lung [place]. Heart: S1/S2 heard with no any murmur or rubs. Abdominal: Soft, nondistended and nontender. NOrmal bowel sound heard. Extremities: No any swelling, cyanosis and clubbing. neuro: Alert, conscious and oriented. Moving all four extremity equally. Result Diagrams: 11/25/18 06:09 11/25/18 06:09 Microbiology and Other Data: Microbiology 11/21/18 12:18 Aerobic Blood Culture - Preliminary Blood Venous No Growth Day 1 Anaerobic Blood Culture - Preliminary No Growth Day 1 11/21/18 12:13 Aerobic Blood Culture - Preliminary Blood Venous No Growth Day 1 Anaerobic Blood Culture - Preliminary No Growth Day 1 11/21/18 20:51 Nasal Screen MRSA (PCR) - Final Nasal Mrsa Not Detected Diagnostic Imaging: CTA on admission no PE CXR with no acute intrathoracic abnormality other than hyperinflation Assess/Plan/Problems-Billing Assessment: 68 F PMH tobacco dependence, HTN, anxiety, likely COPD (no formal PFT on file) presented with hypoxic respiratory failure from COPD exacerbation, lactic acidosis (now resolved). - Patient Problems (1) COPD exacerbation Current Visit: No Status: Acute Priority: High Code(s): J44.1 - CHRONIC OBSTRUCTIVE PULMONARY DISEASE W (ACUTE) EXACERBATION SNOMED Code(s): 804823739 Comment: - Unknown severity at baseline with no PFTS, prior tx with prednisone as outpt for long taper and with Azithro x 5 days (completed [employer]), add back Azithro for total 8 day, day 7/8 on 11/25. - Currently on LABA, LAMA, Dulera and montelukast. - Changed to oral prednisone 40 mg BID today. - Optimize anxiety - Pulm consult is in to determine if further optimization needed. - Still requiring 3L of O2. was on home oxygen prn at 3 L (2) Hypertension Current Visit: Yes Status: Acute Code(s): I10 - ESSENTIAL (PRIMARY) HYPERTENSION SNOMED Code(s): 05142668 Comment: - Amlodipine 10mg, Metoprolol Succinate 50mg and HCTZ 12.5 mg once daily. (3) Lactic acidosis Current Visit: Yes Status: Acute Code(s): E87.2 - ACIDOSIS SNOMED Code(s) : 12754130 Comment: - Now resolved (4) Tobacco abuse disorder Current Visit: Yes Status: Acute Code(s): Z72.0 - TOBACCO USE SNOMED Code( s): 434920918 Comment: - Counseled cessation - Nicotine patch (5) Anxiety Current Visit: No Status: Acute Code(s): F41.9 - ANXIETY DISORDER, UNSPECIFIED SNOMED Code(s): 12969009 Comment: -Continue Atarax, offer PRN Trazodone for sleep -Started Escitalopram QHS (6) DVT prophylaxis Current Visit: Yes Status: Acute Priority: High Code(s): IQP4459 - SNOMED Code(s): 368579334 Comment: - LMWH (7) Full code status Current Visit: No Status: Acute Code(s): Z78.9 - OTHER SPECIFIED HEALTH STATUS SNOMED Code(s): 024868241 Status and Disposition: Medicine Inpatient. Anticipate d/c to home as pt pulm status imprves Attending: Angela Weaver Attestation Documenting Resident: Allie Bardales Supervising Physician: Carol Weaver Attestation: This service has been performed in part by a resident under the direction of a teaching physician.I, Carol Weaver, performed the service, or was physically present during the critical, or morrow portions of the service, furnished by the resident. I participated in the management of the patient.
[2018-11-25] MEDS: Enoxaparin(*) 40 MG/0.4 ML SYR SUBCUT SCH (16:39)
[2018-11-25] MEDS ORDERED: Atorvastatin* 20 MG TAB PO SCH (17:00)
[2018-11-25] MEDS: predniSONE TAB* 20 MG PO SCH (21:01)
[2018-11-25] MEDS: Escitalopram * 10 MG TAB PO SCH (21:01)
[2018-11-25] MEDS: traZODone TAB* 50 MG TAB PO PRN (21:01)
[2018-11-25] MEDS: Nicotine Patch Removal NOTE PATCH OFF SCH (21:03)
[2018-11-26] MEDS: Levalbuterol 1.25MG/0.5ML NEB INH SCH ×3 (03:30→10:41)
[2018-11-26 05:14] LABS: ABS Lymphocytes 0.9 10^3/ul (1.0-4.8); ABS Monocytes 0.9 10^3/ul (0-0.8); ABS Neutrophils 10.2 10^3/ul (1.5-7.7); Hematocrit 42 % (35-47); Hemoglobin 14.4 g/dL (12.0-16.0); Lymphocyte % 7.9 %; Mean Corpuscular HGB Conc 34 g/dL (31-36); Mean Corpuscular Hemoglobin 32 pg (27-31); Mean Corpuscular Volume 92 fL (80-97); Platelet Count 208 10^3/uL (150-450); Red Blood Count 4.55 10^6 /uL (3.70-4.87); Red Cell Distribution Width 13 % (10-15); White Blood Count 12.1 10^3/uL (3.5-10.8)
[2018-11-26 05:36] LABS: BUN/Creatinine Ratio 28.8 (8-20); Calcium 9.2 mg/dL (8.6-10.3); EGFR African American 95.9 (>60); EGFR Non-African American 79.3 (>60); Magnesium 2.3 mg/dL (1.9-2.7); Potassium 3.2 mmol/L (3.5-5.0)
--- NOTE | 2018-11-26 07:14 | PN ---
Subjective Date of Service: 11/26/18 Interval History: No any acute event overnight. Vitals stable. Spo2 97 on 2L of O2. will titrate 02 to maintain saturation 88-92%. Patient is improving but still has wheeze. Has dry cough. Anxiety is improving. Objective Active Medications: Acetaminophen (Tylenol Tab*) 650 mg PO Q4H PRN PRN Reason: FEVER/PAIN Amlodipine Besylate (Norvasc Tab*) 10 mg PO DAILY [facility] Last Admin: 11/25/18 08:37 Dose: 10 mg Aspirin (Aspirin Ec Tab*) 81 mg PO DAILY [facility] Last Admin: 11/25/18 08:37 Dose: 81 mg Azithromycin (Zithromax Tab*) 250 mg PO DAILY [facility] Stop: 11/26/18 09:01 Last Admin: 11/25/18 08:37 Dose: 250 mg Cyclobenzaprine HCl (Flexeril Tab*) 10 mg PO BEDTIME PRN PRN Reason: SPASMS - MUSCLE Enoxaparin Sodium (Lovenox(*)) 40 mg SUBCUT Q24H [facility] Last Admin: 11/25/18 16:39 Dose: 40 mg Escitalopram Oxalate (Lexapro *) 10 mg PO BEDTIME [facility] Last Admin: 11/25/18 21:01 Dose: 10 mg Guaifenesin (Mucinex*) 600 mg PO BID [facility] Last Admin: 11/25/18 21:01 Dose: 600 mg Hydrochlorothiazide (Hydrodiuril Tab*) 12.5 mg PO DAILY [facility] Hydroxyzine HCl (Atarax Tab*) 25 mg PO Q6HR PRN PRN Reason: ANXIETY Last Admin: 11/24/18 15:09 Dose: 25 mg Influenza Virus Vaccine (Fluarix Quad [id number] Syr) 0.5 ml IM .ONCE ONE Stop: 11/26/18 09:01 Levalbuterol HCl (Xopenex 1.25 Mg/0.5 Ml Neb.Maritza*) 1.25 mg INH [id number] AWAKE [facility] Last Admin: 11/26/18 03:30 Dose: Not Given Metoprolol Succinate (Toprol Xl Tab*) 50 mg PO DAILY [facility] Last Admin: 11/25/18 08:37 Dose: 50 mg Mometasone Furoate/Formoterol Fumar (Dulera 200/5 Mdi*) 2 puff INH BID [facility] Last Admin: 11/25/18 20:21 Dose: 2 puff Montelukast Sodium (Singulair Tab*) 10 mg PO DAILY [facility] Last Admin: 11/25/18 09:31 Dose: 10 mg Multivitamins/Minerals (Theragran/Minerals Tab*) 1 tab PO DAILY [facility] Last Admin: 11/25/18 08:37 Dose: 1 tab Nicotine (Nicotine Patch 21 Mg/24 Hr*) 1 patch TRANSDERM DAILY@0800 [facility] Last Admin: 11/25/18 08:38 Dose: 1 patch Pantoprazole Sodium (Protonix Tab*) 40 mg PO DAILY [facility] Last Admin: 11/25/18 08:37 Dose: 40 mg Pharmacy Profile Note (Nicotine Patch Removal Note*) 1 note PATCH OFF 2100 [facility] Last Admin: 11/25/18 21:03 Dose: 1 note Pneumococcal Polyvalent Vaccine (Pneumococcal Vac 23-Polyvalent*) 0.5 ml IM .ONCE ONE Stop: 11/26/18 09:01 Potassium Chloride (Klor Con Er Tab*) 40 meq PO BID [facility] Stop: 11/26/18 21:00 Prednisone (Deltasone Tab*) 40 mg PO BID [facility] Last Admin: 11/25/18 21:01 Dose: 40 mg Tiotropium [place] (Spiriva Respimat 2.5 Mcg) 2 puff INH DAILY [facility] Last Admin: 11/25/18 07:17 Dose: 2 puff Trazodone HCl (Desyrel Tab*) 50 mg PO BEDTIME PRN PRN Reason: INSOMNIA Last Admin: 11/25/18 21:01 Dose: 50 mg Vital Signs - 8 hr 11/25/18 11/26/18 23:15 03:15 Temperature 97.6 F 98.4 F Pulse Rate 89 84 Respiratory 20 20 Rate Blood Pressure 131/70 143/83 (mmHg) O2 Sat by Pulse 96 97 Oximetry Oxygen Devices in Use Now: Nasal Cannula Exam: Ramónn is lying on bed with nasal canula. HEENT: Normocephalic and atraumatic Lungs: Diffuse wheeze heard on all over the lung field. More on expiraory phase. Heart: S1/S2 heaard with no any murmur. Abdomen: Soft, nontender and nondistended. Normal BS Extremities: Normal Neuro: Alert, oriented and conscious. Result Diagrams: 11/26/18 04:46 11/26/18 04:46 Microbiology and Other Data: Microbiology 11/21/18 12:18 Aerobic Blood Culture - Preliminary Blood Venous No Growth Day 1 Anaerobic Blood Culture - Preliminary No Growth Day 1 11/21/18 12:13 Aerobic Blood Culture - Preliminary Blood Venous No Growth Day 1 Anaerobic Blood Culture - Preliminary No Growth Day 1 11/21/18 20:51 Nasal Screen MRSA (PCR) - Final Nasal Mrsa Not Detected Diagnostic Imaging: CTA on admission no PE CXR with no acute intrathoracic abnormality other than hyperinflation Assess/Plan/Problems-Billing Assessment: 68 F PMH tobacco dependence, HTN, anxiety, likely COPD (no formal PFT on file) presented with hypoxic respiratory failure from COPD exacerbation, lactic acidosis (now resolved). Saturation maintained on 2l of O2. 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 - Currently on LABA, LAMA, Dulera and montelukast. - levoalbuterol changed to albuterol and ipratropium nebulizer. - On oral prednisone 40 mg BID. - Optimize anxiety - Pulm consult is in to determine if further optimization needed. - Still requiring 2L of O2. was on home oxygen prn at 3 L (2) Hypertension Current Visit: Yes Status: Acute Code(s): I10 - ESSENTIAL (PRIMARY) HYPERTENSION SNOMED Code(s): 55153434 Comment: - Amlodipine 10mg, Metoprolol Succinate 50mg and HCTZ 12.5 mg once daily. Her potassium was 3.2 so 80 meq kcl added for today. (3) Lactic acidosis Current Visit: Yes Status: Acute Code(s): E87.2 - ACIDOSIS SNOMED Code(s) : 88550296 Comment: - Now resolved (4) Tobacco abuse disorder Current Visit: Yes Status: Acute Code(s): Z72.0 - TOBACCO USE SNOMED Code( s): 974021847 Comment: - Counseled cessation - Nicotine patch (5) Anxiety Current Visit: No Status: Acute Code(s): F41.9 - ANXIETY DISORDER, UNSPECIFIED SNOMED Code(s): 99308324 Comment: -Continue Atarax, offer PRN Trazodone for sleep -Started Escitalopram QHS (6) DVT prophylaxis Current Visit: Yes Status: Acute Priority: High Code(s): YYV7050 - SNOMED Code(s): 504829274 Comment: - LMWH (7) Full code status Current Visit: No Status: Acute Code(s): Z78.9 - OTHER SPECIFIED HEALTH STATUS SNOMED Code(s): 952016143 Status and Disposition: Medicine Inpatient. Anticipate d/c to home as pt pulm status imprves Attending: Angela Weaver Attestation Documenting Resident: Allie Bardales Supervising Physician: Angela Weaver Attestation: This service has been performed in part by a resident under the direction of a teaching physician.I, Angela Weaver, performed the service, or was physically present during the critical, or morrow portions of the service, furnished by the resident. I participated in the management of the patient.
[2018-11-26] MEDS: SPIRIVA Respimat* (tiotropium) 2.5 mcg/inh Inhaler INH SCH (07:48)
[2018-11-26] MEDS: Mometasone/Formoter 200/5 MDI INH SCH ×2 (07:48→19:48)
[2018-11-26] MEDS ORDERED: Pneumococcal *Vac Polyvalent 0.5 ML VIAL IM ONE (09:00)
[2018-11-26] MEDS ORDERED: Influenza VAC *QUAD* 2019-20* 0.5 ML SYRINGE IM ONE (09:00)
[2018-11-26] MEDS: Potassium Chlor TAB* 20 MEQ TAB.ER PO SCH ×2 (09:55→20:40)
[2018-11-26] MEDS: Azithromycin TAB* 250 MG PO SCH (09:56)
[2018-11-26] MEDS: Metoprolol Succinate XL TAB* 50 MG PO SCH (09:56)
[2018-11-26] MEDS: Hydrochlorothiazide TAB* 25 MG PO SCH (09:56)
[2018-11-26] MEDS: predniSONE TAB* 20 MG PO SCH (09:56)
[2018-11-26] MEDS: Montelukast Sodium TAB* 10 MG PO SCH (09:56)
[2018-11-26] MEDS: Aspirin EC TAB* 81 MG TAB.EC PO SCH (09:56)
[2018-11-26] MEDS: Multivitamins/Minerals TAB PO SCH (09:57)
[2018-11-26] MEDS: amLODIPine TAB* 5 MG PO SCH (09:57)
[2018-11-26] MEDS: Nicotine PATCH 21 MG/24 HR* PATCH TRANSDERM SCH (09:57)
[2018-11-26] MEDS: Pantoprazole TAB * 40 MG TAB PO SCH (09:57)
[2018-11-26] MEDS: guaiFENesin ER TAB 600 MG PO SCH ×2 (09:57→20:40)
[2018-11-26] MEDS: hydrOXYzine HCL TAB* 25 MG PO PRN ×3 (10:08→23:49)
[2018-11-26] MEDS: Albuterol/Ipratropium NEB.SOL* Albuterol 2.5 MG/Ipratropium 0.5 MG 3 ML INH SCH ×4 (11:10→23:20)
[2018-11-26] MEDS: Enoxaparin(*) 40 MG/0.4 ML SYR SUBCUT SCH (15:05)
[2018-11-26] MEDS: methylPREDNISolone SOD 40 MG* 1 ML VIAL IV SCH ×2 (16:55→23:49)
[2018-11-26] MEDS: Ezetimibe TAB* 10 MG PO SCH (16:55)
--- NOTE | 2018-11-26 17:57 | CONS ---
PULMONARY CONSULTATION REPORT: DATE OF CONSULT: 11/26/18 CONSULTATION REQUESTED BY: Angela Weaver MD. REASON FOR CONSULTATION: Evaluation of COPD exacerbation. HISTORY OF PRESENT ILLNESS: The patient is a 68-year-old female with history of asthma, current smoker with significant smoking history, also with history of COPD, history of CA and stroke in the past. The patient presents for evaluation of worsening shortness of breath. She was found to be in acute COPD/ asthma exacerbation. She was initiated on antibiotics and prednisone. The patient also was hypoxemic requiring O2 supplementation, currently titrated down to 2 L. The patient reports feeling slightly better. She still gets winded with minimal exertion. Also reports cough, unable to bring out phlegm. The patient denies fevers or chills. Denies chest pain, palpitation, dizziness. The patient reports significant anxiety. She lives alone at home and reports significant stressors in personal life. Reports inability to quit smoking due to the stressors. Reports history of recurrent bronchitis. She has been on prednisone on antibiotics as outpatient. She was seen by her primary care physician and was given 60 mg of prednisone/azithromycin; however, symptoms not improving. She decided to come into the emergency room. The patient had chest x-ray and CT scan of the chest performed on this admission. I personally reviewed chest x-ray and CT of the chest. Chest x-ray is suggestive of hyperinflation with no acute airspace opacities that are evident. CT of the chest was also personally reviewed by me and with the patient today - no evidence of filling defects. Evidence of emphysematous changes and hyperinflation. Mild scarring noted in the left lung. Evidence of pulmonary hypertension. The patient is also with elevated bicarb today at 38. Blood gas analysis on admission showed no evidence of respiratory acidosis. PAST MEDICAL HISTORY: 1. COPD and asthma. 2. Hypertension. 3. Dyslipidemia. 4. GERD. 5. Coronary artery disease. 6. History of CA. 7. History of stroke. 8. Anxiety. 9. Upper GI bleed. PAST SURGICAL HISTORY: Left carotid stent. MEDICATIONS AT HOME: 1. Prednisone. 2. Spiriva. 3. ProAir. 4. Omeprazole. 5. Brave 3. 6. Multivitamins. 7. Montelukast. 8. Metoprolol. 9. Hydroxyzine. 10. Cyclobenzaprine. 11. Breo. 12. Amlodipine. 13. Fexofenadine. 14. Aspirin. 15. DuoNeb. 16. Acetaminophen. 17. Guaifenesin. 18. Azithromycin. ALLERGIES: HYDRALAZINE and LATEX. FAMILY HISTORY: Father had COPD, of peritonitis. Mother at the age of 93. History of pancreatic and breast cancer in sisters. SOCIAL HISTORY: The patient is . The patient is with 1 pack per day smoking for about 40 years. Social drinker. No recreational drug abuse. REVIEW OF SYSTEMS: All 14 systems reviewed, as per HPI. PHYSICAL EXAM: The patient in bed, in no apparent distress. Vital Signs: Temperature 97.5, pulse 99 beats per minute, respiratory rate 20 per minute, O2 sat 95% on 2 L, blood pressure 151/66. HEENT: Pupils equal, reactive to light. Mucous membranes moist. Lungs: Diminished air entry bilaterally, expiratory wheeze. Cardiovascular: S1, S2 present. Abdomen: Soft, nontender , nondistended. Bowel sounds present. Extremities: Normal range of motion. Neuro: Alert, awake, oriented x3. Slightly anxious. DIAGNOSTIC STUDIES/LAB DATA: WBC count 12.1, hemoglobin 14.4, hematocrit 42, platelet count 208. Blood gas analysis on admission showed pH of 7.44, pCO2 of 32, PO2 of 69, bicarb of 23.6. Sodium 138, potassium 3.8, chloride 94, bicarb 38, BUN 21, creatinine 0.73. Influenza A and B negative. Blood cultures negative to date. Sputum cultures could not be obtained. IMPRESSION AND RECOMMENDATIONS: 68-year-old female with history of COPD, asthma , admitted with worsening shortness of breath being treated for acute asthma/ COPD exacerbation and also hypoxemic respiratory failure. The patient is with no significant improvement since admission. Still significantly tight on auscultation. The patient is also with significant expiratory wheeze. Suspect, the patient is having symptoms that are not resolving due to also component of asthma. She has also significant smoking history, which might have resulted in significant dyspnea. FiO2 requirements are improving. She is still having significant wheeze on auscultation. I would like to change her steroids from oral to IV. Her bicarb appears to be increasing on BMP. Given that FiO2 requirements are improving, I would watch her at this time. She is having moist cough, unable to bring out secretions. Ordered Metaneb. I would also continue with bronchodilators q.4 hours while awake. She is on Breo and anticholinergic at home and is on appropriate inhalers. I do not suspect any component of fluid overload at this time. If the bicarb seems to be elevated or if she is appearing to be in any kind of distress, I would recommend noninvasive ventilation and also obtaining blood gases. I agree with current antibiotic choice. Sputum cultures will be sent. Also, recommended flutter device usage. Thank you for allowing me to participate in the care of your patient. Will follow up with you. [id number]/[facility] #: [id number] VINICIUS
[2018-11-26] MEDS: Escitalopram * 10 MG TAB PO SCH (20:37)
[2018-11-26] MEDS: Nicotine Patch Removal NOTE PATCH OFF SCH (20:41)
[2018-11-26] MEDS: traZODone TAB* 50 MG TAB PO PRN (20:45)
[2018-11-27 06:15] LABS: BUN/Creatinine Ratio 27.6 (8-20); Calcium 9.7 mg/dL (8.6-10.3); EGFR African American 91.6 (>60); EGFR Non-African American 75.7 (>60); Potassium 3.9 mmol/L (3.5-5.0)
[2018-11-27] MEDS: Albuterol/Ipratropium NEB.SOL* Albuterol 2.5 MG/Ipratropium 0.5 MG 3 ML INH SCH ×5 (07:03→20:12)
--- NOTE | 2018-11-27 07:23 | PN ---
Subjective Date of Service: 11/27/18 Interval History: No acute overnight events. BP on higher side 155/84 mm Hg; Spo2 89% on room air. Patient is feeling better. No any SOB. is able to use bathroom without getting shortness of breath. No muscle ache. Objective Active Medications: Acetaminophen (Tylenol Tab*) 650 mg PO Q4H PRN PRN Reason: FEVER/PAIN Albuterol/Ipratropium (Duoneb (Albuterol 2.5 Mg/Ipratropium 0.5 Mg)) 1 neb INH [id number] AWAKE [facility] Last Admin: 11/27/18 07:03 Dose: Not Given Amlodipine Besylate (Norvasc Tab*) 10 mg PO DAILY [facility] Last Admin: 11/26/18 09:57 Dose: 10 mg Aspirin (Aspirin Ec Tab*) 81 mg PO DAILY [facility] Last Admin: 11/26/18 09:56 Dose: 81 mg Cyclobenzaprine HCl (Flexeril Tab*) 10 mg PO BEDTIME PRN PRN Reason: SPASMS - MUSCLE Ezetimibe (Zetia Tab*) 10 mg PO 1700 [facility] Last Admin: 11/26/18 16:55 Dose: 10 mg Enoxaparin Sodium (Lovenox(*)) 40 mg SUBCUT Q24H [facility] Last Admin: 11/26/18 15:05 Dose: 40 mg Escitalopram Oxalate (Lexapro *) 10 mg PO BEDTIME [facility] Last Admin: 11/26/18 20:37 Dose: 10 mg Guaifenesin (Mucinex*) 600 mg PO BID [facility] Last Admin: 11/26/18 20:40 Dose: 600 mg Hydrochlorothiazide (Hydrodiuril Tab*) 12.5 mg PO DAILY [facility] Last Admin: 11/26/18 09:56 Dose: 12.5 mg Hydroxyzine HCl (Atarax Tab*) 25 mg PO Q6HR PRN PRN Reason: ANXIETY Last Admin: 11/26/18 23:49 Dose: 25 mg Methylprednisolone Sodium Succinate (Solu-Medrol 40 Mg) 40 mg IV Q8H [facility] Last Admin: 11/26/18 23:49 Dose: 40 mg Metoprolol Succinate (Toprol Xl Tab*) 50 mg PO DAILY [facility] Last Admin: 11/26/18 09:56 Dose: 50 mg Mometasone Furoate/Formoterol Fumar (Dulera 200/5 Mdi*) 2 puff INH BID [facility] Last Admin: 11/26/18 19:48 Dose: 2 puff Montelukast Sodium (Singulair Tab*) 10 mg PO DAILY [facility] Last Admin: 11/26/18 09:56 Dose: 10 mg Multivitamins/Minerals (Theragran/Minerals Tab*) 1 tab PO DAILY [facility] Last Admin: 11/26/18 09:57 Dose: 1 tab Nicotine (Nicotine Patch 21 Mg/24 Hr*) 1 patch TRANSDERM DAILY@0800 [facility] Last Admin: 11/26/18 09:57 Dose: 1 patch Pantoprazole Sodium (Protonix Tab*) 40 mg PO DAILY [facility] Last Admin: 11/26/18 09:57 Dose: 40 mg Pharmacy Profile Note (Nicotine Patch Removal Note*) 1 note PATCH OFF 2100 [facility] Last Admin: 11/26/18 20:41 Dose: 1 note Tiotropium [place] (Spiriva Respimat 2.5 Mcg) 2 puff INH DAILY [facility] Last Admin: 11/26/18 07:48 Dose: 2 puff Trazodone HCl (Desyrel Tab*) 50 mg PO BEDTIME PRN PRN Reason: INSOMNIA Last Admin: 11/26/18 20:45 Dose: 50 mg Vital Signs - 8 hr 11/27/18 02:45 Temperature 97.5 F Pulse Rate 71 Respiratory 18 Rate Blood Pressure 160/89 (mmHg) O2 Sat by Pulse 94 Oximetry Oxygen Devices in Use Now: Nasal Cannula Exam: Patient is lying on a bed with nasal canula. HEENT: NOrmocephalic and atraumatic Lungs: Diffuse wheeze heard more inspiratory but improving. Heart: S1/S2 heard with no murmur Abdomen: SOft, nondistended and nontender Extremity: no swelling and cyanosis Neuro: Alert, conscious and oriented Result Diagrams: 11/26/18 04:46 11/27/18 05:29 Microbiology and Other Data: Microbiology 11/21/18 12:18 Aerobic Blood Culture - Preliminary Blood Venous No Growth Day 1 Anaerobic Blood Culture - Preliminary No Growth Day 1 11/21/18 12:13 Aerobic Blood Culture - Preliminary Blood Venous No Growth Day 1 Anaerobic Blood Culture - Preliminary No Growth Day 1 11/21/18 20:51 Nasal Screen MRSA (PCR) - Final Nasal Mrsa Not Detected Diagnostic Imaging: CTA on admission no PE CXR with no acute intrathoracic abnormality other than hyperinflation Assess/Plan/Problems-Billing Assessment: 68 F PMH tobacco dependence, HTN, anxiety, likely COPD (no formal PFT on file) presented with hypoxic respiratory failure from COPD exacerbation, lactic acidosis (now resolved). Saturation maintained on 1l of O2. - Patient Problems (1) COPD exacerbation Current Visit: No Status: Acute Priority: High Code(s): J44.1 - CHRONIC OBSTRUCTIVE PULMONARY DISEASE W (ACUTE) EXACERBATION SNOMED Code(s): 222067652 Comment: - Improving -Unknown severity at baseline with no PFTS, prior tx with prednisone as outpt for long taper. completed 8 day course of azithro. - Currently on LABA, LAMA, Dulera and montelukast. - levoalbuterol changed to albuterol and ipratropium nebulizer. - Changed to IV methylprednisone as per pulmonology. added metaneb - Optimize anxiety. - maintaining saturation in room air.. was on home oxygen prn at 3 L (2) Hypertension Current Visit: Yes Status: Acute Code(s): I10 - ESSENTIAL (PRIMARY) HYPERTENSION SNOMED Code(s): 82518214 Comment: - Amlodipine 10mg, Metoprolol Succinate 50mg and HCTZ 12.5 mg once daily. - potassium normal (3) Lactic acidosis Current Visit: Yes Status: Acute Code(s): E87.2 - ACIDOSIS SNOMED Code(s) : 92531974 Comment: - Now resolved (4) Tobacco abuse disorder Current Visit: Yes Status: Acute Code(s): Z72.0 - TOBACCO USE SNOMED Code( s): 987805488 Comment: - Counseled cessation - Nicotine patch (5) Anxiety Current Visit: No Status: Acute Code(s): F41.9 - ANXIETY DISORDER, UNSPECIFIED SNOMED Code(s): 10308663 Comment: -Continue Atarax, offer PRN Trazodone for sleep -Started Escitalopram QHS (6) Hyperlipemia Current Visit: Yes Status: Acute Code(s): E78.5 - HYPERLIPIDEMIA, UNSPECIFIED SNOMED Code(s): 10240415 Comment: 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 No mucle ache at present. Started a trial of ezetimibe. Watch for any muscle ache. (7) DVT prophylaxis Current Visit: Yes Status: Acute Priority: High Code(s): ADC8262 - SNOMED Code(s): 948925439 Comment: - LMWH (8) Full code status Current Visit: No Status: Acute Code(s): Z78.9 - OTHER SPECIFIED HEALTH STATUS SNOMED Code(s): 620164132 Status and Disposition: Medicine Inpatient. Anticipate d/c to home as pt pulm status improves Attending: Angela Weaver Attestation Documenting Resident: Allie Bardales Supervising Physician: Angela Weaver Attestation: This service has been performed in part by a resident under the direction of a teaching physician.I, Angela Weaver, performed the service, or was physically present during the critical, or morrow portions of the service, furnished by the resident. I participated in the management of the patient.
[2018-11-27] MEDS: Mometasone/Formoter 200/5 MDI INH SCH ×2 (08:01→20:12)
[2018-11-27] MEDS: SPIRIVA Respimat* (tiotropium) 2.5 mcg/inh Inhaler INH SCH (08:01)
[2018-11-27] MEDS: methylPREDNISolone SOD 40 MG* 1 ML VIAL IV SCH ×3 (10:16→23:49)
[2018-11-27] MEDS: Multivitamins/Minerals TAB PO SCH (10:17)
[2018-11-27] MEDS: guaiFENesin ER TAB 600 MG PO SCH ×2 (10:17→21:46)
[2018-11-27] MEDS: Aspirin EC TAB* 81 MG TAB.EC PO SCH (10:17)
[2018-11-27] MEDS: Hydrochlorothiazide TAB* 25 MG PO SCH (10:18)
[2018-11-27] MEDS: amLODIPine TAB* 5 MG PO SCH (10:18)
[2018-11-27] MEDS: Pantoprazole TAB * 40 MG TAB PO SCH (10:18)
[2018-11-27] MEDS: Metoprolol Succinate XL TAB* 50 MG PO SCH (10:19)
[2018-11-27] MEDS: Montelukast Sodium TAB* 10 MG PO SCH (10:19)
[2018-11-27] MEDS: Nicotine PATCH 21 MG/24 HR* PATCH TRANSDERM SCH (10:19)
[2018-11-27] MEDS: Ezetimibe TAB* 10 MG PO SCH (17:03)
[2018-11-27] MEDS: Enoxaparin(*) 40 MG/0.4 ML SYR SUBCUT SCH (17:04)
[2018-11-27] MEDS: traZODone TAB* 50 MG TAB PO PRN (21:46)
[2018-11-27] MEDS: Escitalopram * 10 MG TAB PO SCH (21:46)
[2018-11-27] MEDS: Nicotine Patch Removal NOTE PATCH OFF SCH (21:47)
[2018-11-28] MEDS: Albuterol/Ipratropium NEB.SOL* Albuterol 2.5 MG/Ipratropium 0.5 MG 3 ML INH SCH ×3 (02:18→13:55)
[2018-11-28 05:36] LABS: Hematocrit 43 % (35-47); Hemoglobin 15.1 g/dL (12.0-16.0); Mean Corpuscular HGB Conc 35 g/dL (31-36); Mean Corpuscular Hemoglobin 32 pg (27-31); Mean Corpuscular Volume 91 fL (80-97); Mean Platelet Volume 7.8 fL (7.4-10.4); Platelet Count 230 10^3/uL (150-450); Red Blood Count 4.72 10^6 /uL (3.70-4.87); Red Cell Distribution Width 13 % (10-15); White Blood Count 10.4 10^3/uL (3.5-10.8)
[2018-11-28 05:51] LABS: BUN/Creatinine Ratio 34.7 (8-20); Calcium 9.2 mg/dL (8.6-10.3); EGFR African American 97.5 (>60); EGFR Non-African American 80.6 (>60); Potassium 3.5 mmol/L (3.5-5.0)
[2018-11-28 06:58] LABS: ABS Monocytes 0.5 10^3/ul (0-0.8); ABS Neutrophils 8.8 10^3/ul (1.5-7.7); Eosinophil % 0.1 %
[2018-11-28] MEDS ORDERED: Potassium Chlor TAB* 20 MEQ TAB.ER PO ONE (07:15)
--- NOTE | 2018-11-28 07:19 | PN ---
Subjective Date of Service: 11/28/18 Interval History: No any acute overnight event. Maintaining saturation on room air. VSS. BP controlled today. NO oxygen requirement even at night. able to walk to bathroom with mild sob. Patient states she feels great and wants to go home. No any SOB or wheezes. Patient motivated to quit smoking. Objective Active Medications: Acetaminophen (Tylenol Tab*) 650 mg PO Q4H PRN PRN Reason: FEVER/PAIN Albuterol/Ipratropium (Duoneb (Albuterol 2.5 Mg/Ipratropium 0.5 Mg)) 1 neb INH [id number] [facility]KE [facility] Last Admin: 11/28/18 02:18 Dose: Not Given Amlodipine Besylate (Norvasc Tab*) 10 mg PO DAILY [facility] Last Admin: 11/27/18 10:18 Dose: 10 mg Aspirin (Aspirin Ec Tab*) 81 mg PO DAILY [facility] Last Admin: 11/27/18 10:17 Dose: 81 mg Cyclobenzaprine HCl (Flexeril Tab*) 10 mg PO BEDTIME PRN PRN Reason: SPASMS - MUSCLE Ezetimibe (Zetia Tab*) 10 mg PO 1700 [facility] Last Admin: 11/27/18 17:03 Dose: 10 mg Enoxaparin Sodium (Lovenox(*)) 40 mg SUBCUT Q24H [facility] Last Admin: 11/27/18 17:04 Dose: 40 mg Escitalopram Oxalate (Lexapro *) 10 mg PO BEDTIME [facility] Last Admin: 11/27/18 21:46 Dose: 10 mg Guaifenesin (Mucinex*) 600 mg PO BID [facility] Last Admin: 11/27/18 21:46 Dose: 600 mg Hydrochlorothiazide (Hydrodiuril Tab*) 12.5 mg PO DAILY [facility] Last Admin: 11/27/18 10:18 Dose: 12.5 mg Hydroxyzine HCl (Atarax Tab*) 25 mg PO Q6HR PRN PRN Reason: ANXIETY Last Admin: 11/26/18 23:49 Dose: 25 mg Metoprolol Succinate (Toprol Xl Tab*) 50 mg PO DAILY [facility] Last Admin: 11/27/18 10:19 Dose: 50 mg Mometasone Furoate/Formoterol Fumar (Dulera 200/5 Mdi*) 2 puff INH BID [facility] Last Admin: 11/27/18 20:12 Dose: 2 puff Montelukast Sodium (Singulair Tab*) 10 mg PO DAILY [facility] Last Admin: 11/27/18 10:19 Dose: 10 mg Multivitamins/Minerals (Theragran/Minerals Tab*) 1 tab PO DAILY [facility] Last Admin: 11/27/18 10:17 Dose: 1 tab Nicotine (Nicotine Patch 21 Mg/24 Hr*) 1 patch TRANSDERM DAILY@0800 [facility] Last Admin: 11/27/18 10:19 Dose: 1 patch Pantoprazole Sodium (Protonix Tab*) 40 mg PO DAILY [facility] Last Admin: 11/27/18 10:18 Dose: 40 mg Pharmacy Profile Note (Nicotine Patch Removal Note*) 1 note PATCH OFF 2100 [facility] Last Admin: 11/27/18 21:47 Dose: 1 note Potassium Chloride (Klor Con Er Tab*) 40 meq PO ONCE ONE Stop: 11/28/18 07:16 Prednisone (Deltasone Tab*) 40 mg PO BID [facility] Tiotropium [place] (Spiriva Respimat 2.5 Mcg) 2 puff INH DAILY [facility] Last Admin: 11/27/18 08:01 Dose: 2 puff Trazodone HCl (Desyrel Tab*) 50 mg PO BEDTIME PRN PRN Reason: INSOMNIA Last Admin: 11/27/18 21:46 Dose: 50 mg Vital Signs - 8 hr 11/28/18 03:15 Temperature 97.9 F Pulse Rate 77 Respiratory 16 Rate Blood Pressure 118/75 (mmHg) O2 Sat by Pulse 91 Oximetry Oxygen Devices in Use Now: Nasal Cannula Exam: Patient is lying on a bed with nasal canula. HEENT: NOrmocephalic and atraumatic Lungs: Mild wheezing on lower right lung. Otherwise clear Heart: S1/S2 heard with no murmur Abdomen: SOft, nondistended and nontender Extremity: no swelling and cyanosis Neuro: Alert, conscious and oriented Result Diagrams: 11/28/18 05:18 11/28/18 05:21 Microbiology and Other Data: Microbiology 11/21/18 12:18 Aerobic Blood Culture - Preliminary Blood Venous No Growth Day 1 Anaerobic Blood Culture - Preliminary No Growth Day 1 11/21/18 12:13 Aerobic Blood Culture - Preliminary Blood Venous No Growth Day 1 Anaerobic Blood Culture - Preliminary No Growth Day 1 11/21/18 20:51 Nasal Screen MRSA (PCR) - Final Nasal Mrsa Not Detected Diagnostic Imaging: CTA on admission no PE CXR with no acute intrathoracic abnormality other than hyperinflation Assess/Plan/Problems-Billing Assessment: 68 F PMH tobacco dependence, HTN, anxiety, likely COPD (no formal PFT on file) presented with hypoxic respiratory failure from COPD exacerbation, lactic acidosis (now resolved). Saturation maintained on room air. - Patient Problems (1) COPD exacerbation Current Visit: No Status: Acute Priority: High Code(s): J44.1 - CHRONIC OBSTRUCTIVE PULMONARY DISEASE W (ACUTE) EXACERBATION SNOMED Code(s): 125196254 Comment: - Improving -Unknown severity at baseline with no PFTS, prior tx with prednisone as outpt for long taper. completed 8 day course of azithro. - Currently on LABA, LAMA, Dulera and montelukast. - levoalbuterol changed to albuterol and ipratropium nebulizer. - Switching to oral pred. added metaneb - Optimize anxiety. - maintaining saturation in room air.. was on home oxygen prn at 3 L can be d/c today (2) Hypertension Current Visit: Yes Status: Acute Code(s): I10 - ESSENTIAL (PRIMARY) HYPERTENSION SNOMED Code(s): 28722301 Comment: - Amlodipine 10mg, Metoprolol Succinate 50mg and HCTZ 12.5 mg once daily. - potassium 40 given. Bp controlled (3) Lactic acidosis Current Visit: Yes Status: Acute Code(s): E87.2 - ACIDOSIS SNOMED Code(s) : 53842808 Comment: - Now resolved (4) Tobacco abuse disorder Current Visit: Yes Status: Acute Code(s): Z72.0 - TOBACCO USE SNOMED Code( s): 396683703 Comment: - Counseled cessation - Nicotine patch (5) Anxiety Current Visit: No Status: Acute Code(s): F41.9 - ANXIETY DISORDER, UNSPECIFIED SNOMED Code(s): 00568090 Comment: -Continue Atarax, offer PRN Trazodone for sleep -Started Escitalopram QHS (6) Hyperlipemia Current Visit: Yes Status: Acute Code(s): E78.5 - HYPERLIPIDEMIA, UNSPECIFIED SNOMED Code(s): 25724482 Comment: 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 No mucle ache at present. Started a trial of ezetimibe. Watch for any muscle ache. (7) DVT prophylaxis Current Visit: Yes Status: Acute Priority: High Code(s): RNI0385 - SNOMED Code(s): 253421368 Comment: - LMWH (8) Full code status Current Visit: No Status: Acute Code(s): Z78.9 - OTHER SPECIFIED HEALTH STATUS SNOMED Code(s): 896933752 Status and Disposition: Medicine Inpatient. Anticipate d/c to home today. Attending: Angela Weaver Attestation Documenting Resident: Allie Bardales Supervising Physician: Angela Weaver Attestation: This service has been performed in part by a resident under the direction of a teaching physician.I, Angela Weaver, performed the service, or was physically present during the critical, or morrow portions of the service, furnished by the resident. I participated in the management of the patient.
[2018-11-28 08:45] VITALS: BP 173/94
[2018-11-28] MEDS: SPIRIVA Respimat* (tiotropium) 2.5 mcg/inh Inhaler INH SCH (08:58)
[2018-11-28] MEDS: Mometasone/Formoter 200/5 MDI INH SCH (08:58)
[2018-11-28] MEDS ORDERED: predniSONE TAB* 20 MG PO SCH (09:00)
[2018-11-28] MEDS: guaiFENesin ER TAB 600 MG PO SCH (10:55)
[2018-11-28] MEDS: Montelukast Sodium TAB* 10 MG PO SCH (10:55)
[2018-11-28] MEDS: amLODIPine TAB* 5 MG PO SCH (10:55)
[2018-11-28] MEDS: Pantoprazole TAB * 40 MG TAB PO SCH (10:55)
[2018-11-28] MEDS: Multivitamins/Minerals TAB PO SCH (10:56)
[2018-11-28] MEDS: Nicotine PATCH 21 MG/24 HR* PATCH TRANSDERM SCH (10:56)
[2018-11-28] MEDS: Metoprolol Succinate XL TAB* 50 MG PO SCH (10:56)
[2018-11-28] MEDS: Aspirin EC TAB* 81 MG TAB.EC PO SCH (10:56)
[2018-11-28] MEDS: Hydrochlorothiazide TAB* 25 MG PO SCH (10:56)
--- NOTE | 2018-11-28 12:34 | DS ---
CC: Claire Kelley MD DISCHARGE SUMMARY: DATE OF ADMISSION: 11/21/18 DATE OF DISCHARGE: 11/28/18 PRIMARY CARE PROVIDER: Claire Kelley MD DISPOSITION AT THE TIME OF DISCHARGE: Stable to be discharged to home. PRIMARY DIAGNOSIS: Chronic obstructive pulmonary disease exacerbation SECONDARY DIAGNOSES: 1. Tobacco dependence. 2. Hypertension. 3. Anxiety. 4. History of cerebrovascular accident without residual deficit. 5. Chronic obstructive pulmonary disease with no formal pulmonary function tests on file, possibly w ith overlying asthma. MEDICATIONS AT THE TIME OF DISCHARGE: 1. Spiriva 1 puff inhaled daily. 2. Omeprazole 20 mg p.o. daily. 3. Multivitamin 1 tab p.o. daily. 4. Montelukast 10 mg p.o. daily. 5. Metoprolol succinate 50 mg p.o. daily. 6. Hydroxyzine 25 mg p.o. q.6 hours p.r.n. for anxiety. 7. Guaifenesin 600 mg p.o. b.i.d. 8. Cyclobenzaprine 10 mg p.o. q.h.s. 9. Aspirin 81 mg p.o. daily. 10. Amlodipine 10 mg p.o. daily. 11. Hydrochlorothiazide 12.5 mg p.o. daily. 12. Acetaminophen 650 mg p.o. q.4 hours p.r.n. 13. Breo Ellipta 1 inhaled p.o. daily. 14. [place]-3 DHA 2 caps p.o. b.i.d. 15. DuoNeb solution 1 neb inhaled 4 times a day, p.r.n. for severe shortness of breath. 16. Albuterol inhaler 2 puffs p.o. q.4 hours p.r.n. for severe shortness of breath. 17. Prednisone taper to be determined just at the time of discharge. 18. Trazodone 50 mg p.o. q.h.s. p.r.n. for sleep. 19. Escitalopram 10 mg p.o. q.h.s. 20. Zetia 10 mg p.o. daily. Medication changes in this hospitalization will be the up titration of amlodipine from 5 mg to 10 mg with the addition of hydrochlorothiazide 12.5 mg, the addition of Lexapro 10 mg p.o. q.h.s. and Zetia 10 mg p.o. daily, prednisone taper which will be detailed and then the addition of p.r.n. trazodone 50 mg p.o. q.h.s. HOSPITAL COURSE AND PRESENTATION: A 68-year-old female with above past medical history who presented to the emergency room on 11/21/18 with complaints of ongoing shortness of breath, wheezing. The pat tonio reports that she has known history of COPD and presented with 4 days of duration she has had asuncion quent COPD exacerbations over the course of the past year, 1 with an influenza infection and her most recent COPD exacerbation was actually several weeks prior to admission where she had just completed a prednisone tapering dose for a total of 18 days. Since stopping taking the prednisone, she had gra dual worsening shortness of breath. She continued to smoke 1 to 1-1/2 packs per day. She presented to her primary care provider who restarted prednisone and azithromycin, although she felt the symptom s were not getting better and thus came to the emergency room. In the ER, she is in mild hypoxemic r espiratory distress with tachypnea. She is given steroids and DuoNeb. There was no obvious pneumonia on chest x-ray. Secondary to her high oxygen requirements needing high flow nasal cannula, she was admitted to the ICU for increased work of breathing and elevated lactate. Her hospital course by problems as follows: 1. Hypoxic respiratory failure secondary to COPD exacerbation. The patient had very slow wean from oxygen, mostly secondary to bronchospasm, steroids, DuoNeb and triple inhaler therapy was utilized wi th gradual weaning, had a total of 8 days of azithromycin including the 5 days prior to admission wer e given to the patient for anti-inflammatory properties as there was no evidence of clear marbella conso lidation or pneumonia driving this process. The patient required IV steroids until 11/27/18 and then was able to be transitioned safely to oral. A CTA was done in the emergency room, which showed no p ulmonary embolism, but showed chronic emphysema. Ultimately, Pulmonology consulted, who added a MetaN eb treatment, which allows for some hypertonic saline and distilled administration of inhalers, with positive pressure the patient got significant relief, was able to be transferred off of IV steroids a nd transitioned to oral steroids where we anticipate a 2-week taper on discharge. 2. COPD at baseline. Hospital did not have copies of her PFTs, although assume she is GOLD C or D b ased on presenting symptoms. She reports that this is the worst COPD exacerbation that she has had t o date. She has already optimized on triple inhaler therapy, strong high school counselor for smoking cessation wa s given during this hospitalization and the patient is discharged to home on nicotine replacement the rapy. 3. Anxiety. The patient has significant anxiety while weaning from oxygen. She is already on hydro xyzine. She was optimized to SSRI and trial of Lexapro was given over 5 days. The patient felt that there was mild benefit that she wanted to continue. P.r.n. Trazodone was utilized, which the patien t used nightly with good effect. Hydroxyzine was continued. 4. Hypertension. The patient had significant hypertension during this hospitalization, most likely secondary to steroid administration. She is already on amlodipine 5 and metoprolol 50. Those medica tions were continued with up titration of amlodipine to 10 mg in addition of hydrochlorothiazide 12.5 mg, the patient tolerated well. Blood pressure is normotensive with this combination. Her blood pr essure medications may be adjusted by primary care provider on outpatient. 5. History of CAD, distant CVA with no residual deficit. The patient reports CAD and history of str david and CA. There are no clear PCI history. She is optimized on aspirin and beta-joanie, she is on [place]-3 fatty acids from primary care provider because she has had multiple trials of statins that h ave not been tolerated. We did trial ezetimibe, her LDL on admission was 188, Zetia was added and ca n be continued by primary care provider at their discretion. 6. Dyslipidemia as per above. Continue with fatty acids and ezetimibe 7. GERD. Continue PPI. 8. Tobacco dependence. Again, the patient has 1 to 1/2 pack per day history for over 40 years bring ing her close to a 60-pack year history. Strong recommendation for smoking cessation was given. Law otine replacement therapy was used at 21 mg, she was discharge on this patches. Likely continued tob acco use in the setting of her inflammation and earlier COPD flare caused this most recent presentati on of COPD flare. On day of discharge, the patient is ambulating without oxygen, tolerating diet and feels close to eleuterio esquivel. She is stable to be discharged to home where she has had p.r.n. home oxygen, on prednisone ta per, continued neb treatment, strong high school counselor on nicotine replacement therapy and med changes as per efrem tsang. She can follow up with primary care provider in the next 1 to 2 weeks. LABS AND STUDIES DONE DURING THIS HOSPITALIZATION: Labs on day of discharge white blood cell count 1 3.4, hemoglobin 15, hematocrit 43, platelets 230. Sodium 134, potassium 3.5, chloride 96, carbon anai xide 31, creatinine 0.72, BUN 25 and glucose 177. Of note, LDL is 188 on this hospitalization done o n admission. Imaging includes chest x-ray on 11/21/18, shows no focal consolidation, did show hyperinflated lungs consistent with chronic changes of COPD. 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 CONSULTANTS DURING THIS HOSPITALIZATION: Pulmonology. ITEMS TO FOLLOWUP ON STATUS POST DISCHARGE: 1. COPD with overlying asthma likely GOLD C to D. The patient is currently optimized on triple inha ler therapy. Strong high school counselor for cessation of tobacco. 2. Significant arterial disease and peripheral arterial disease seen incidentally on CTA done during rule out a PE. The patient has no abdominal symptoms to suggest that she has mesenteric ischemia fro m this SMA stenosis as well as iliac stenosis. If the patient has signs and symptoms of claudication, consider vascular surgery referral or starting with ABIs to determine if this incidental seen stenos is and plaque has symptomatic consequences. The patient certainly is at risk for peripheral arterial disease given her long history of smoking, LDL elevated at 188 and history of CAD in the past. 2. Secondary prevention. The patient is appropriately [place]-3 and has had multiple failures with st atin. She is on aspirin. Zetia was trialed as a hopeful lipid-lowering agent in the setting of high risk patient 3. Hypertension. Hypertension medications were changed slightly during the hospitalization. They m ay need to be changed back by primary care provider given that her hypertension may be driven by resp iratory symptoms and high dose methylprednisone, which was given IV. TIME SPENT: Forty five minutes was spent on planning of this discharge and over half of that spent d irectly at bedside with the patient providing direct patient care. Plan of care discussed with the p frances, who is stable to return to home. She has no further questions, understands prednisone taper a nd medication changes and will follow up with primary care provider in the next 1 to 2 weeks. She un derstood she can return to the emergency room if there is shortness of breath, chest pain or new symp toms. If there are any questions about the care of this patient during this hospitalization please n ot hesitate to reach out and contact me directly, my cell phone is [phone] to discuss the care w ith this patient. [id number] #: [id number]
== END 2018-11-28 16:10 | disposition home or self-care (01) | DRG 190 ==
LOC: ED 11:20 → MED 16:07 → ICU 20:17 → MED 11-24 18:33
PROVIDERS: ADMIT Internal Medicine; ATTEND Internal Medicine
DX: J44.1 Chronic obstructive pulmonary disease with (acute) exacerbation (principal); J96.91 Respiratory failure, unspecified with hypoxia; E87.2 Acidosis; F17.210 Nicotine dependence, cigarettes, uncomplicated; M06.9 Rheumatoid arthritis, unspecified; K57.90 Diverticulosis of intestine, part unspecified, without perforation or abscess without bleeding; E86.1 Hypovolemia; I73.9 Peripheral vascular disease, unspecified; F41.9 Anxiety disorder, unspecified; I10 Essential (primary) hypertension; E78.5 Hyperlipidemia, unspecified; K21.9 Gastro-esophageal reflux disease without esophagitis; I25.10 Atherosclerotic heart disease of native coronary artery without angina pectoris; Z95.828 Presence of other vascular implants and grafts; Z88.8 Allergy status to other drugs, medicaments and biological substances; Z91.040 Latex allergy status; Z82.5 Family history of asthma and other chronic lower respiratory diseases; I25.2 Old myocardial infarction; Z86.73 Personal history of transient ischemic attack (TIA), and cerebral infarction without residual deficits; Z80.0 Family history of malignant neoplasm of digestive organs; Z80.3 Family history of malignant neoplasm of breast; Z72.89 Other problems related to lifestyle; Q27.9 Congenital malformation of peripheral vascular system, unspecified; Z85.828 Personal history of other malignant neoplasm of skin; Z90.710 Acquired absence of both cervix and uterus; Z90.722 Acquired absence of ovaries, bilateral; Z82.49 Family history of ischemic heart disease and other diseases of the circulatory system; Z83.3 Family history of diabetes mellitus; Z82.3 Family history of stroke; Z79.51 Long term (current) use of inhaled steroids; Z79.82 Long term (current) use of aspirin
CPT/HCPCS: 36415; 71045; 71275; 74174; 80048; 80053; 80061; 82803; 83036; 83605; 83735; 84484; 85025; 87040; 87070; 87077; 87205; 87641; 90686; 90732; 93005; 94640; 94668; 99284; A9270-GY; J1100; J1650; J2920; J2930; J3535; J7512; Q9967

== ENCOUNTER 2019-04-27 16:28 | Emergency (ER) | payer MEDICARE ==
[2019-04-27 18:17] LABS: ABS Basophils 0.1 10^3/ul (0-0.2); ABS Eosinophils 0.2 10^3/ul (0-0.6); ABS Lymphocytes 1.2 10^3/ul (1.0-4.8); ABS Monocytes 0.7 10^3/ul (0-0.8); ABS Neutrophils 5.1 10^3/ul (1.5-7.7); Hematocrit 30 % (35-47); Hemoglobin 9.8 g/dL (12.0-16.0); Lymphocyte % 16.5 %; Mean Corpuscular HGB Conc 32 g/dL (31-36); Mean Corpuscular Hemoglobin 23 pg (27-31); Mean Corpuscular Volume 72 fL (80-97); Mean Platelet Volume 7.4 fL (7.4-10.4); Platelet Count 303 10^3/uL (150-450); Red Blood Count 4.22 10^6 /uL (3.70-4.87); Red Cell Distribution Width 18 % (10-15); White Blood Count 7.3 10^3/uL (3.5-10.8)
[2019-04-27 18:21] LABS: INR 1.06 (0.82-1.09)
[2019-04-27 18:41] LABS: Troponin I 0.01 ng/mL (<0.03)
[2019-04-27 18:55] LABS: Albumin 4.8 g/dL (3.2-5.2); Albumin/Globulin Ratio 1.7 (1-3); Calcium 9.6 mg/dL (8.6-10.3); EGFR African American 95.9 (>60); EGFR Non-African American 79.3 (>60); Globulin 2.8 g/dL (2-4); Potassium 3.3 mmol/L (3.5-5.0); Total Bilirubin 0.4 mg/dL (0.2-1.0); Total Protein 7.6 g/dL (6.4-8.9)
[2019-04-27] MEDS ORDERED: Albuterol/Ipratropium NEB.SOL* Albuterol 2.5 MG/Ipratropium 0.5 MG 3 ML INH ONE (22:47)
--- NOTE | 2019-04-27 22:48 | ED ---
Shortness of Breath - HPI Summary HPI Summary: Complains of progressive SOB 1 week. Patient states this feels like her usual COPD exacerbation. History of COPD, on when necessary O2 at home. Denies fever , cough, sore throat, CP, and/V/D, abdominal pain, change in urine, change in BM. Medical history COPD, CVA, GI bleed, HTN. - History of Current Complaint Chief Complaint: EDShortnessOfBreath Time Seen by Provider: 04/27/19 22:17 Hx Obtained From: Patient Onset/Duration: Gradual Onset, Lasting Days Timing: Constant Current Severity: Moderate Dyspnea At: Exertion Alleviating Factors: Bronchodilators, Oxygen Associated Signs & Symptoms: Negative - Allergy/Home Medications Allergies/Adverse Reactions: Allergies Allergy/AdvReac Type Severity Reaction Status Date / Time hydralazine Allergy Severe See Comment Verified 04/27/19 23:11 latex Allergy Blisters Verified 04/27/19 23:11 PMH/Surg Hx/FS Hx/Imm Hx Endocrine/Hematology History: Denies: Hx Diabetes Cardiovascular History: Reports: Hx Angina, Hx Hypertension, Hx Myocardial Infarction, Hx Peripheral Vascular Disease, Other Cardiovascular Problems/ Disorders - 2 carotid stents Denies: Hx Congestive Heart Failure, Hx Pacemaker/ICD Respiratory History: Reports: Hx Asthma, Hx Chronic Obstructive Pulmonary Disease (COPD) GI History: Reports: Hx Diverticulosis, Hx Gall Bladder Disease, Hx Gastroesophageal Reflux Disease, Hx Gastrointestinal Bleed, Other GI Disorders - DIVERTICULITIS History: Reports: Hx Kidney Infection, Other Problems/Disorders - HX MILD RENAL INSUFFICIENCY Denies: Hx Renal Disease Musculoskeletal History: Reports: Hx Arthritis - RA, Hx Rheumatoid Arthritis Sensory History: Denies: Hx Contacts or Glasses, Hx Legally Blind, Hx Deafness, Hx Hearing Aid , Other Sensory Impairments Opthamlomology History: Denies: Hx Contacts or Glasses, Hx Legally Blind, Other Sensory Impairments EENT History: Denies: Hx Deafness Neurological History: Reports: Hx Headaches, Hx Transient Ischemic Attacks (TIA) Psychiatric History: Reports: Hx Anxiety Denies: Hx Panic Disorder - Cancer History Cancer Type, Location and Year: skin on finger--removed - Surgical History Surgery Procedure, Year, and Place: HYSTERECTOMY, OOPHRECTOMY, APENDECTOMY, CHOLECYSTECTOMY,TONSILECTOMY,URINARY TRACT SURGERY Hx Anesthesia Reactions: No - Immunization History Date of Tetanus Vaccine: current Date of Influenza Vaccine: 2015 Infectious Disease History: No Infectious Disease History: Denies: Traveled Outside the [place] in Last 30 Days - Family History Known Family History: Positive: Cardiac Disease, Hypertension, Diabetes, Respiratory Disease - COPD, Other - stroke - Social History Alcohol Use: Daily Alcohol Amount: 2/day Hx Substance Use: No Substance Use Type: Reports: None Hx Tobacco Use: Yes Smoking Status (MU): Former Smoker Type: Cigarettes Length of Time of Smoking/Using Tobacco: 50 years Have You Smoked in the Last Year: Yes Review of Systems Constitutional: Negative Eyes: Negative ENT: Negative Cardiovascular: Negative Positive: Shortness Of Breath Gastrointestinal: Negative Genitourinary: Negative Musculoskeletal: Negative Skin: Negative Neurological/Mental Status: Negative Psychological: Normal All Other Systems Reviewed And Are Negative: Yes Physical Exam Triage Information Reviewed: Yes Vital Signs On Initial Exam: Initial Vitals Temp Pulse Resp BP Pulse Ox 97.8 F 115 18 131/81 92 04/27/19 16:35 04/27/19 16:35 04/27/19 16:35 04/27/19 16:35 04/27/19 16:35 Vital Signs Reviewed: Yes Appearance: Positive: Well-Appearing Skin: Positive: Warm Head/Face: Positive: Normal Head/Face Inspection Eyes: Positive: Normal Neck: Positive: Supple Respiratory/Lung Sounds: Positive: Wheezes - Bilaterally Cardiovascular: Positive: Normal Abdomen Description: Positive: Nontender Musculoskeletal: Positive: Normal Neurological: Positive: Normal Psychiatric: Positive: Normal AVPU Assessment: Alert - Brant Coma Scale Best Eye Response: 4 - Spontaneous Best Motor Response: 6 - Obeys Commands Best Verbal Response: 5 - Oriented Coma Scale Total: 15 Procedures - Sedation Patient Received Moderate/Deep Sedation with Procedure: No Diagnostics - Vital Signs Vital Signs Temp Pulse Resp BP Pulse Ox 04/27/19 18:55 98.2 F 106 16 114/71 93 04/27/19 16:35 97.8 F 115 18 131/81 92 - Laboratory Lab Results: Lab Results 04/27/19 04/27/19 04/27/19 Range/Units 18:09 18:09 18:09 WBC 7.3 (3.5-10.8) 10^3/uL RBC 4.22 (3.70-4.87) 10^6 /uL Hgb 9.8 L (12.0-16.0) g/dL Hct 30 L (35-47) % MCV 72 L (80-97) fL MCH 23 L (27-31) pg MCHC 32 (31-36) g/dL RDW 18 H (10-15) % Plt Count 303 (150-450) 10^3/uL MPV 7.4 (7.4-10.4) fL Neut % (Auto) 69.5 % Lymph % (Auto) 16.5 % Mccormick % (Auto) 10.0 % Eos % (Auto) 3.0 % Baso % (Auto) 1.0 % Absolute Neuts (auto) 5.1 (1.5-7.7) 10^3/ul Absolute Lymphs (auto) 1.2 (1.0-4.8) 10^3/ul Absolute Monos (auto) 0.7 (0-0.8) 10^3/ul Absolute Eos (auto) 0.2 (0-0.6) 10^3/ul Absolute Basos (auto) 0.1 (0-0.2) 10^3/ul Absolute Nucleated RBC 0.0 10^3/ul Nucleated RBC % 0.0 INR (Anticoag Therapy) 1.06 (0.82-1.09) Sodium 136 (135-145) mmol/L Potassium 3.3 L (3.5-5.0) mmol/L Chloride 99 L (101-111) mmol/L Carbon Dioxide 27 (22-32) mmol/L Anion Gap 10 (2-11) mmol/L BUN 8 (6-24) mg/dL Creatinine 0.73 (0.51-0.95) mg/dL Est GFR ( Amer) 95.9 (>60) Est GFR (Non-Af Amer) 79.3 (>60) BUN/Creatinine Ratio 11.0 (8-20) Glucose 107 H (70-100) mg/dL Calcium 9.6 (8.6-10.3) mg/dL Total Bilirubin 0.40 (0.2-1.0) mg/dL AST 26 (13-39) U/L ALT 17 (7-52) U/L Alkaline Phosphatase 80 (34-104) U/L Troponin I 0.01 (<0.03) ng/mL Total Protein 7.6 (6.4-8.9) g/dL Albumin 4.8 (3.2-5.2) g/dL Globulin 2.8 (2-4) g/dL Albumin/Globulin Ratio 1.7 (1-3) 04/27/19 Range/Units 21:08 WBC (3.5-10.8) 10^3/uL RBC (3.70-4.87) 10^6 /uL Hgb (12.0-16.0) g/dL Hct (35-47) % MCV (80-97) fL MCH (27-31) pg MCHC (31-36) g/dL RDW (10-15) % Plt Count (150-450) 10^3/uL MPV (7.4-10.4) fL Neut % (Auto) % Lymph % (Auto) % Mccormick % (Auto) % Eos % (Auto) % Baso % (Auto) % Absolute Neuts (auto) (1.5-7.7) 10^3/ul Absolute Lymphs (auto) (1.0-4.8) 10^3/ul Absolute Monos (auto) (0-0.8) 10^3/ul Absolute Eos (auto) (0-0.6) 10^3/ul Absolute Basos (auto) (0-0.2) 10^3/ul Absolute Nucleated RBC 10^3/ul Nucleated RBC % INR (Anticoag Therapy) (0.82-1.09) Sodium (135-145) mmol/L Potassium (3.5-5.0) mmol/L Chloride (101-111) mmol/L Carbon Dioxide (22-32) mmol/L Anion Gap (2-11) mmol/L BUN (6-24) mg/dL Creatinine (0.51-0.95) mg/dL Est GFR ( Amer) (>60) Est GFR (Non-Af Amer) (>60) BUN/Creatinine Ratio (8-20) Glucose (70-100) mg/dL Calcium (8.6-10.3) mg/dL Total Bilirubin (0.2-1.0) mg/dL AST (13-39) U/L ALT (7-52) U/L Alkaline Phosphatase (34-104) U/L Troponin I 0.01 (<0.03) ng/mL Total Protein (6.4-8.9) g/dL Albumin (3.2-5.2) g/dL Globulin (2-4) g/dL Albumin/Globulin Ratio (1-3) Result Diagrams: 04/27/19 18:09 04/27/19 18:09 Lab Statement: Any lab studies that have been ordered have been reviewed, and results considered in the medical decision making process. Course/Dx - Course Course Of Treatment: Complains of progressive SOB 1 week. Patient states this feels like her usual COPD exacerbation. History of COPD, on when necessary O2 at home. Denies fever, cough, sore throat, CP, and/V/D, abdominal pain, change in urine, change in BM. Medical history COPD, CVA, GI bleed, HTN. Patient initially mildly tachycardic with O2 sats of 92. O2 sats improved after DuoNeb. Lung sounds significantly improved. Patient refused second DuoNeb. Patient states she has oxygen and nebulizer at home. States prescription for prednisone will take care of the rest. Chest x-ray unremarkable. EKG sinus tachycardia, rate 109, diffuse ST depression, same as prior EKGs. Hemoglobin 9.8, anemia appears new from November 2018. Sodium 3.3. 40 mEq by mouth here in the ED. - Diagnoses Provider Diagnoses: COPD with acute exacerbation, Anemia, Hypokalemia Discharge ED - Sign-Out/Discharge Documenting (check all that apply): Patient Departure - Discharge Plan Condition: Stable Disposition: HOME Prescriptions: predniSONE 20 mg TAB [Deltasone 20 MG TAB*] 40 mg PO DAILY 5 Days #10 tab Patient Education Materials: COPD (Chronic Obstructive Pulmonary Disease) (ED) Referrals: Claire Kelley MD [Primary Care Provider] - Additional Instructions: Usual home nebulizer and oxygen as directed if needed. Take prednisone daily as directed. Follow-up with primary care for hypo-kalemia and anemia. Return to the ED for any new or worsening symptoms. - Billing Disposition and Condition Condition: STABLE Disposition: Home
[2019-04-28] MEDS ORDERED: Potassium Chlor TAB* 20 MEQ TAB.ER PO ONE (00:33)
[2019-04-28 01:04] VITALS: BP 163/76
== END 2019-04-28 01:02 | disposition home or self-care (01) ==
LOC: ED 16:28
DX: J44.1 Chronic obstructive pulmonary disease with (acute) exacerbation (principal); Z99.81 Dependence on supplemental oxygen; D64.9 Anemia, unspecified; E87.6 Hypokalemia; R00.0 Tachycardia, unspecified; I25.2 Old myocardial infarction; I10 Essential (primary) hypertension; Z95.5 Presence of coronary angioplasty implant and graft; Z88.8 Allergy status to other drugs, medicaments and biological substances; Z91.040 Latex allergy status; Z87.891 Personal history of nicotine dependence
CPT/HCPCS: 36415; 71046; 80053; 84484; 85025; 85610; 93005; 99283; A9270-GY; J7512

== ENCOUNTER 2019-06-03 15:17 | Emergency (ER) | payer MEDICARE ==
[2019-06-03] MEDS ORDERED: Albuterol/Ipratropium NEB.SOL* Albuterol 2.5 MG/Ipratropium 0.5 MG 3 ML INH ONE (15:58)
[2019-06-03] MEDS ORDERED: Magnesium Sulfate 2 GM IV* 2 GM/50 ML BAG IVPB ONE (15:58)
[2019-06-03] MEDS ORDERED: methylPREDNISolone 125 MG* 2 ML VIAL IV ONE (15:58)
--- NOTE | 2019-06-03 16:09 | ED ---
Shortness of Breath - HPI Summary HPI Summary: 68-year-old female presents with shortness of breath for the past week. She states that she has had occasional cough. No fevers. No recent travel. No one around her is sick. She feels that her COPD is acting up. She was seen at her primary care and had a breathing treatment and a x-ray and was very short of breath. She had a duoneb by EMS and now feels better. She denies any swelling in her legs. no chest pain. No vomiting or nausea. no sore throat or sinus congestion. she has been self isolating at home. Pt states she received immunization 05/20/19. Pt states that in the past after she has had immunization she gets exasperation of copd. - History of Current Complaint Chief Complaint: EDShortnessOfBreath Time Seen by Provider: 06/03/19 15:23 - Allergy/Home Medications Allergies/Adverse Reactions: Allergies Allergy/AdvReac Type Severity Reaction Status Date / Time hydralazine Allergy Severe See Comment Verified 04/27/19 23:11 ezetimibe [From Zetia] Allergy See Comment Verified 06/03/19 15:35 latex Allergy Blisters Verified 04/27/19 23:11 Eqegysk-Hcv-Pia Reductase Allergy Leg Cramps Verified 06/03/19 15:35 Inhibitor Home Medications: Home Medications Fexofenadine (NF) [Rajani 180 (NF)] 180 mg PO DAILY PRN 02/04/14 [History Confirmed 06/03/19] [place]-3/Dha/Epa/Fish Oil [[place]-3 Fish Oil 1,200 mg Sfgl] 2 cap PO BID 12/18/16 [History Confirmed 06/03/19] Tiotropium CAPSULE (NF) [Spiriva CAPSULE (NF)] 2 cap.inh INH DAILY 12/18/16 [ History Confirmed 06/03/19] Aspirin EC TAB* [Ecotrin EC Low Dose 81 MG*] 81 mg PO DAILY 06/08/17 [History Confirmed 06/03/19] Multivitamins/Minerals TAB* [Theragran/minerals TAB*] 1 tab PO DAILY 06/08/17 [ History Confirmed 06/03/19] Acetaminophen TAB* [Tylenol TAB*] 650 mg PO Q4H PRN tab 09/03/17 [Rx Confirmed 06/03/19] Metoprolol Succinate XL TAB* [Toprol XL TAB*] 50 mg PO DAILY 02/17/18 [History Confirmed 06/03/19] hydrOXYzine HCL TAB* [Atarax 25 MG TAB*] 25 mg PO Q6HR PRN #30 tab 05/09/18 [Rx Confirmed 06/03/19] Albuterol inh POWDER (NF) [Proair Respiclick] 2 puff PO Q4HR PRN 11/21/18 [ History Confirmed 06/03/19] Albuterol/Ipratropium NEB.SABRINA* [Duoneb (Albuterol 2.5 MG/Ipratropium 0.5 MG)] 3 ml INH Q4H PRN 11/21/18 [History Confirmed 06/03/19] Fluticasone/Vilanterol [Breo Ellipta 200-25 Mcg INH] 1 inh PO DAILY 11/21/18 [ History Confirmed 06/03/19] Montelukast Sodium TAB* [Singulair 10 MG TAB*] 10 mg PO DAILY 11/21/18 [History Confirmed 06/03/19] Omeprazole CAP (NF) [Prilosec CAP* 20 MG] 20 mg PO DAILY 11/21/18 [History Confirmed 06/03/19] guaiFENesin ER TAB [Mucinex*] 600 mg PO BID 11/21/18 [History Confirmed 06/03/19 ] Escitalopram * [Lexapro 10 mg (NF)] 10 mg PO BEDTIME #30 tab 11/28/18 [Rx Confirmed 06/03/19] Hydrochlorothiazide TAB* [Hydrodiuril TAB*] 12.5 mg PO DAILY #30 tab 11/28/18 [ Rx Confirmed 06/03/19] amLODIPine TAB* [Norvasc 5 mg TAB*] 10 mg PO DAILY #60 tab 11/28/18 [Rx Confirmed 06/03/19] predniSONE 50 mg TAB [Deltasone 50 mg TAB] 50 mg PO DAILY #4 tab 06/03/19 [Rx] PMH/Surg Hx/FS Hx/Imm Hx Endocrine/Hematology History: Denies: Hx Diabetes Cardiovascular History: Reports: Hx Angina, Hx Hypertension, Hx Myocardial Infarction, Hx Peripheral Vascular Disease, Other Cardiovascular Problems/ Disorders - 2 carotid stents Denies: Hx Congestive Heart Failure, Hx Pacemaker/ICD Respiratory History: Reports: Hx Asthma, Hx Chronic Obstructive Pulmonary Disease (COPD) GI History: Reports: Hx Diverticulosis, Hx Gall Bladder Disease, Hx Gastroesophageal Reflux Disease, Hx Gastrointestinal Bleed, Other GI Disorders - DIVERTICULITIS History: Reports: Hx Kidney Infection, Other Problems/Disorders - HX MILD RENAL INSUFFICIENCY Denies: Hx Renal Disease Musculoskeletal History: Reports: Hx Arthritis - RA, Hx Rheumatoid Arthritis Sensory History: Denies: Hx Contacts or Glasses, Hx Legally Blind, Hx Deafness, Hx Hearing Aid , Other Sensory Impairments Opthamlomology History: Denies: Hx Contacts or Glasses, Hx Legally Blind, Other Sensory Impairments Neurological History: Reports: Hx Headaches, Hx Transient Ischemic Attacks (TIA) Psychiatric History: Reports: Hx Anxiety Denies: Hx Panic Disorder - Cancer History Cancer Type, Location and Year: skin on finger--removed - Surgical History Surgery Procedure, Year, and Place: HYSTERECTOMY, OOPHRECTOMY, APENDECTOMY, CHOLECYSTECTOMY,TONSILECTOMY,URINARY TRACT SURGERY Hx Anesthesia Reactions: No - Immunization History Date of Tetanus Vaccine: current Date of Influenza Vaccine: 2015 Infectious Disease History: No Infectious Disease History: Denies: Traveled Outside the [place] in Last 30 Days - Family History Known Family History: Positive: Cardiac Disease, Hypertension, Diabetes, Respiratory Disease - COPD, Other - stroke - Social History Alcohol Use: Daily Alcohol Amount: 2/day Hx Substance Use: No Substance Use Type: Reports: None Hx Tobacco Use: Yes Smoking Status (MU): Former Smoker Type: Cigarettes Length of Time of Smoking/Using Tobacco: 50 years Have You Smoked in the Last Year: Yes Review of Systems Negative: Fever Negative: Chest Pain Positive: Shortness Of Breath, Cough All Other Systems Reviewed And Are Negative: Yes Physical Exam Triage Information Reviewed: Yes Vital Signs On Initial Exam: Initial Vitals Temp Pulse Resp BP Pulse Ox 97.4 F 89 18 147/83 98 06/03/19 15:31 06/03/19 15:31 06/03/19 15:31 06/03/19 15:31 06/03/19 15:31 Vital Signs Reviewed: Yes Appearance: Positive: Well-Appearing Skin: Positive: Warm, Dry Head/Face: Positive: Normal Head/Face Inspection Eyes: Positive: Normal, EOMI, GRZEGORZ, Conjunctiva Clear ENT: Positive: Normal ENT inspection, Pharynx normal, TMs normal Respiratory/Lung Sounds: Positive: Breath Sounds Present, Wheezes Cardiovascular: Positive: Normal, RRR Abdomen Description: Positive: Nontender, Soft Bowel Sounds: Positive: Present Musculoskeletal: Positive: Normal Neurological: Positive: Normal Psychiatric: Positive: Normal Procedures - Sedation Patient Received Moderate/Deep Sedation with Procedure: No Diagnostics - Vital Signs Vital Signs Temp Pulse Resp BP Pulse Ox 06/03/19 15:40 20 06/03/19 15:31 97.4 F 89 18 147/83 98 - Laboratory Result Diagrams: 06/03/19 15:43 06/03/19 15:43 Lab Statement: Any lab studies that have been ordered have been reviewed, and results considered in the medical decision making process. - EKG No standard instances Cardiac Rate: NL EKG Rhythm: Sinus Rhythm Summary of EKG Findings: sinus rhythm Re-Evaluation - Re-Evaluation First Eval Re-Evaluation Time: 16:49 Change: Improved Comment: ambulated without dropping o2 stats or becoming very short of breath Course/Dx - Course Course Of Treatment: 68-year-old female presents with shortness of breath for the past week. She states that she has had occasional cough. No fevers. No recent travel. No one around her is sick. She feels that her COPD is acting up. She was seen at her primary care and had a breathing treatment and a x-ray and was very short of breath. She had a duoneb by EMS and now feels better. She denies any swelling in her legs. no chest pain. No vomiting or nausea. no sore throat or sinus congestion. On exam lungs CTA. O2 sats are normal. chest xray uploaded from [facility] shows no pneumonia. feeling better with steriods, magnesium and breathing treatment. ambulated without becoming hypoxic or sob. will discharge on steriods. patient understand and agrees with plan. - Diagnoses Differential Diagnosis/HQI/PQRI: Positive: Bronchitis, COPD Exacerbation, Pneumonia Provider Diagnoses: COPD (chronic obstructive pulmonary disease) Discharge ED - Sign-Out/Discharge Documenting (check all that apply): Patient Departure - Discharge Plan Condition: Good Disposition: HOME Prescriptions: predniSONE 50 mg TAB [Deltasone 50 mg TAB] 50 mg PO DAILY #4 tab Patient Education Materials: COPD (Chronic Obstructive Pulmonary Disease) (ED) Referrals: Claire Kelley MD [Primary Care Provider] - Additional Instructions: Use nebulizer every 4 hours for cough and wheezing Take steroid once a day for 4 more days starting tomorrow Follow up with primary within 5 days Return to ED if develop severe shortness of breath, chest pain, or any new or worsening symptoms - Billing Disposition and Condition Condition: GOOD Disposition: Home - Attestation Statements Provider Attestation: I was available for consultation for this patient. I did not evaluate the patient or participate in any medical decision making or disposition decisions unless I am specifically named in the chart as having consulted on the patient. If I have consulted on the patient, please see my own ED note on the patient encounter. Xenia Modi MD
[2019-06-03 16:10] LABS: ABS Eosinophils 0.3 10^3/ul (0-0.6); ABS Lymphocytes 1.3 10^3/ul (1.0-4.8); ABS Monocytes 0.7 10^3/ul (0-0.8); ABS Neutrophils 3.8 10^3/ul (1.5-7.7); Eosinophil % 4.4 %; Hematocrit 30 % (35-47); Hemoglobin 10.1 g/dL (12.0-16.0); Lymphocyte % 21.1 %; Mean Corpuscular HGB Conc 33 g/dL (31-36); Mean Corpuscular Hemoglobin 25 pg (27-31); Mean Corpuscular Volume 75 fL (80-97); Mean Platelet Volume 7.4 fL (7.4-10.4); Platelet Count 287 10^3/uL (150-450); Red Blood Count 4.05 10^6 /uL (3.70-4.87); Red Cell Distribution Width 22 % (10-15); White Blood Count 6.1 10^3/uL (3.5-10.8)
[2019-06-03 16:12] LABS: Albumin 4.5 g/dL (3.2-5.2); Albumin/Globulin Ratio 1.7 (1-3); BUN/Creatinine Ratio 14.1 (8-20); C Reactive Protein 3.75 mg/L (<8.01); Calcium 9.7 mg/dL (8.6-10.3); EGFR African American 99.1 (>60); EGFR Non-African American 81.9 (>60); Globulin 2.6 g/dL (2-4); Potassium 3.4 mmol/L (3.5-5.0); Total Bilirubin 0.5 mg/dL (0.2-1.0); Total Protein 7.1 g/dL (6.4-8.9)
[2019-06-03 16:13] LABS: Troponin I 0.01 ng/mL (<0.03)
--- OUTSIDE RECORDS SUMMARY | 2019-06-03 17:04 | XMS REPORT | Summary of Care ---
:1950 Author Organization [facility] Address [address] [address] Care Team Providers Name Role Phone Claire Kelley Primary Care Provider Reason for Visit Reason Comments [place] [facility] [place] [facility] [facility] [place] Encounter Details Date Type Department Care Team Description 05/01/2019 Office Visit Senecajuan jose Santorojose Chronic obstructive pulmonary disease, unspecified COPD type (HCC) (Primary Dx); Practice MD Claire Microcytic anemia; [address] [place] [address] [place] [address] [phone] Allergies Active Allergy Reactions Severity Noted Date Comments Latex Other 12/20/2008 Niacin, Antihyperlipidemic Musculoskeletal 01/07/2013 Myalgia, chest pain Statins Musculoskeletal 12/14/2010 myalgia documented as of this encounter (statuses as of 05/01/2019) Medications Medication Sig Dispensed Refills Start Date End Date Status Aurora-3 Fatty Acids Take 2 Caps by 0 Active (OMEGA 3) 1200 MG mouth TWICE DAILY. Oral Cap fexofenadine Take 180 mg by 0 Active (DANNIE) 180 MG Oral mouth DAILY. Tab acetaminophen Take 650 mg by 0 Active (TYLENOL) 325 MG Oral mouth EVERY FOUR Tab HOURS NEEDED for Pain. ASPIRIN 81 PO Take by mouth. 0 Active Multiple Take by mouth. 0 Active Vitamins-Minerals (MULTIVITAMIN ADULT PO) SPIRIVA RESPIMAT 2.5 TAKE 2 INHALATIONS 4 g 0 10/13/2018 Active MCG/ACT Inhalation DAILY Aero Soln BREO ELLIPTA 200-25 INHALE ONE PUFF BY 1 Each 1 10/22/2018 Active MCG/INH Inhalation MOUTH EVERY DAY AEROSOL POWDER, BREATH ACTIVATED Additional Information Patient taking differently: 1 Puff BID, Reported on 05/01/2019 2:27 PM montelukast (SINGULAIR) 10 MG TAKE ONE TABLET BY MOUTH 30 Tab 1 02/18/2019 Active Oral Tab EVERY DAY metoprolol succinate (TOPROL TAKE ONE TABLET BY MOUTH 30 Tab 1 02/18/2019 Active XL) 50 MG Oral TABLET SR 24 HR EVERY DAY PROAIR HFA 108 (90 Base) INHALE TWO PUFFS BY MOUTH 8 g 3 03/23/2019 Active MCG/ACT Inhalation Aero Soln EVERY 4 HOURS NEEDED FOR WHEEZING amLodipine (NORVASC) 5 MG Oral Take 1 Tab by mouth DAILY. 30 Tab 0 2019 Active Tab Additional Information Patient taking differently: 10 mg Oral DAILY, Reported on 05/01/2019 2:08 PM hydrochlorothiazide Take 1 Tab by 30 Tab 0 04/02/2019 Active (HCTZ, ORETIC) 25 MG Oral mouth DAILY. Tab albuterol-ipratropium INHALE THE 90 Vial 0 04/14/2019 Active (DUO-NEB) 0.5-2.5 (3) CONTENTS OF ONE MG/3ML Inhalation VIAL VIA Solution NEBULIZER EVERY 4 HOURS NEEDED FOR WHEEZING Omeprazole delayed rel TAKE ONE CAPSULE 30 Cap 1 04/30/2019 Active cap 20 MG Oral CAPSULE BY MOUTH EVERY DELAYED RELEASE DAY predniSONE (DELTASONE) 20 60 mg Po QD for 40 Tab 0 05/01/2019 Active MG Oral Tab 3 days, 50 mg PO QD for 3 days, 40 mg Po QD for 3 days, 30 mg for 3 days, 20 mg PO QD fort 3 days, 10 mg - for 3 days cyclobenzaprine Take 1 Tab by 60 Tab 0 09/19/201805/01/ Discontinued (FLEXERIL) 10 MG Oral Tab mouth EVERY 2019 (Other) BEDTIME NEEDED (muscle spasm). predniSONE (DELTASONE) 20 60 mg Po QD for 27 Tab 0 11/18/201805/01/ Discontinued MG Oral Tab 3 days, 50 mg PO 2019 (Reorder) QD for 3 days, 40 mg Po QD for 3 days, 20 mg PO QD fort 3 days, 10 mg - for 3 days trazodone (DESYREL) 50 MG BEDTIME 0 11/28/201805/01/ Discontinued Oral Tab 2020 (Other) escitalopram (LEXAPRO) 10 10 mg DAILY. 0 11/28/201805/01/ Discontinued MG Oral Tab 2019 (Other) SPIRIVA HANDIHALER 18 MCG INHALE THE 90 Cap 1 01/22/201905/01/ Discontinued Inhalation CONTENTS OF ONE 2019 (Other) CapIndications: Chronic CAPSULE VIA obstructive pulmonary HANDIHALER BY disease, unspecified COPD MOUTH EVERY DAY type (HCC) oseltamivir (TAMIFLU) 75 Take 1 Cap by 10 Cap 0 03/14/201905/01/ Discontinued MG Oral Cap mouth DAILY. 2019 (Other) ezetimibe (ZETIA) 10 MG Take 1 Tab by 30 Tab 0 04/02/201905/01/ Discontinued Oral Tab mouth DAILY. 2019 (Other) Hospital, Clinic, or Other Ordered Dose Route Frequency Start Date End Date Status Facility Administered Medication albuterol (PROVENTIL, 2.5 mg IN-SVN NOW 10/03/2018 Active VENTOLIN) nebulizer unit dose (RT ADMIN) (2.5 MG/3ML) 0.083%Indications: COPD exacerbation (HCC) documented as of this encounter (statuses as of 05/01/2019) Active Problems Problem Noted Date Urticaria 10/17/2011 Chronic urticaria 09/25/2011 Lung nodule 08/30/2011 Hypertension 02/19/2011 Tobacco abuse 12/20/2008 CAD (coronary artery disease) Overview: Cath- 1999 30% LAD COPD (chronic obstructive pulmonary disease) Osteopenia documented as of this encounter (statuses as of 05/01/2019) Resolved Problems Problem Noted Date Resolved Date Urticaria 08/08/2011 09/25/2011 documented as of this encounter (statuses as of 05/01/2019) Immunizations Name Administration Dates Next Due Influenza (IM) Preservative Free 02/20/2017, 12/15/2012, 12/01/2010, 12/20/2008 Influenza Vaccine High Dose 11/25/2018, 11/27/2017, 01/23/2016 Influenza Virus Vaccine Pres Free [...] Assigned at Date Recorded Not on file documented as of this encounter Last Filed Vital Signs Vital Sign Reading Time Taken Comments Blood Pressure 120/62 05/01/2019 2:11 PM EST Pulse 108 05/01/2019 2:11 PM EST Temperature 36.8 05/01/2019 2:11 PM EST C (98.2 F) Respiratory Rate - - Oxygen Saturation 93% 05/01/2019 2:11 PM EST Inhaled Oxygen Concentration - - Weight 71.4 kg (157 lb 8 oz) 05/01/2019 2:11 PM EST Height 162.6 cm (5' 4") 05/01/2019 2:11 PM EST Body Mass Index 27.03 05/01/2019 2:11 PM EST documented in this encounter Patient Instructions Patient InstructionsClaire Kelley MD - 05/01/2019 2:00 PM EST1. Take Prednisone 60 mg once a day for 3 days, 50 mg for 3 days, 40 mg for 3 days, 30 mg for 3 days, 20 mg for 3 ays and 10 mg for 3 days 2. Follow up in 1 week and as needed documented in this encounter Progress Notes Claire Kelley MD - 05/01/2019 2:00 PM EST Patient: Chantelle Sanders Date of Service: 05/01/2019 Subjective: Chantelle Sanders is a 68-y.o. female who presents for Chief Complaint Patient presents with ? Follow Up [place] [facility] [place] [place] [facility] [place] Patient comes follow up evaluation at [facility] 04/27/19 Presented with complains of increasing SOB, wheezing started about 1 week prior Patient quit smoking about 3 weeks ago Evaluation at the ER: negative X-ray, normal Tropon in, Microcytic anemia, low K Has history of GI bleeding in 2018 with anemia that caused he to have ME Patient was discharged on oral Prednisone Noticed some improvement, but still uses Albuterol several times a day. Past Medical History: Diagnosis Date ? CAD (coronary artery disease) Cath- 1999 30% LAD ? Carotid stenosis stent in L carotid ? COPD (chronic obstructive pulmonary disease) (HCC) ? Endometriosis CASEY ? HTN (hypertension) ? Hyperlipidemia ? Osteopenia ? Squamous cell carcinoma 12/31/11 L Index Finger ? Tubular adenoma nos 2001 Outpatient Medications as of 05/01/2019 Medication Sig Dispense Refill ? acetaminophen (TYLENOL) 325 MG Oral Tab Take 650 mg by mouth EVERY FOUR HOURS NEEDED forPain. ? albuterol-ipratropium (DUO-NEB) 0.5-2.5 (3) MG/3ML Inhalation Solution INHALE THE CONTENTS OF ONE VIAL VIA NEBULIZER EVERY 4 HOURS NEEDED FOR WHEEZING 90 Vial 0 ? amLodipine (NORVASC) 5 MG Oral Tab Take 1 Tab by mouth DAILY. (Patient taking differently: Take 10 mg by mouth DAILY.) 30 Tab 0 ? ASPIRIN 81 PO Take by mouth. ? BREO ELLIPTA 200-25 MCG/INH Inhalation AEROSOL POWDER, BREATH ACTIVATED INHALE ONE PUFF BY MOUTH EVERY DAY (Patient taking differently: 1 Puff TWICE DAILY.) 1 Each 1 ? fexofenadine (DANNIE) 180 MG Oral Tab Take 180 mg by mouth DAILY. ? hydrochlorothiazide (HCTZ, ORETIC) 25 MG Oral Tab Take 1 Tab by mouth DAILY. 30 Tab 0 ? metoprolol succinate (TOPROL XL) 50 MG Oral TABLET SR 24 HR TAKE ONE TABLET BY MOUTH EVERY DAY 30 Tab 1 ? montelukast (SINGULAIR) 10 MG Oral Tab TAKE ONE TABLET BY MOUTH EVERY DAY 30 Tab 1 ? Multiple Vitamins-Minerals (MULTIVITAMIN ADULT PO) Take by mouth. ? Aurora-3 Fatty Acids (OMEGA 3) 1200 MG Oral Cap Take 2 Caps by mouth TWICE DAILY. ? Omeprazole delayed rel cap 20 MG Oral CAPSULE DELAYED RELEASE TAKE ONE CAPSULE BY MOUTH EVERY DAY 30 Cap 1 ? PROAIR HFA 108 (90 Base) MCG/ACT Inhalation Aero Soln INHALE TWO PUFFS BY MOUTH EVERY 4 HOURS NEEDED FOR WHEEZING 8 g 3 ? SPIRIVA RESPIMAT 2.5 MCG/ACT Inhalation Aero Soln TAKE 2 INHALATIONS DAILY 4 g 0 Facility-Administered Medications as of 05/01/2019 Medication Dose Route Frequency Provider Last Rate Last Dose ? albuterol (PROVENTIL, VENTOLIN) nebulizer unit dose (RT ADMIN) (2.5 MG/ 3ML) 0.083% 2.5 mg Inhalation-SVN NOW Allergies Allergen Reactions ? Latex Other ? Niaspan [Niacin, Antihyperlipidemic] Musculoskeletal Myalgia, chest pain ? Statins Musculoskeletal myalgia Review of Systems: All remaining review of systems was negative. Objective: BP 120/62 (BP Location: Right arm, Patient Position: Sitting) Pulse 108 Temp 98.2 F (36.8 C) Ht 5' 4" (1.626 m) Wt 157 lb 8 oz (71.4 kg) SpO2 93% BMI 27.03 kg/m2 GENERAL: alert, fatigued NOSE: Nares normal. Septum midline. Mucosa normal. No drainage or sinus tenderness. THROAT: lips, mucosa, and tongue normal: teeth and gums normal NECK: supple, symmetrical, trachea midline and no adenopathy LUNGS: Bilaterally reduced air entry, few bilateral wheezing HEART: regular rate and rhythm, S1, S2 normal, no murmur, click, rub or gallop ICD-9-CM ICD-10-CM 1. Chronic obstructive pulmonary disease, unspecified COPD type (HCC) 496 J44.9 2. Microcytic anemia 280.9 D50.9 FERRITIN IRON CBC WITH DIFFERENTIAL 3. Hypokalemia 276.8 E87.6 BASIC METABOLIC PANEL MAGNESIUM LEVEL Patient Instructions 1. Take Prednisone 60 mg once a day for 3 days, 50 mg for 3 days, 40 mg for 3 days, 30 mg for 3 days, 20 mg for 3 ays and 10 mg for 3 days 2. Follow up in 1 week and as needed Author: Claire Kelley MD documented in this encounter Plan of Treatment Date Type Specialty Care Team Description 05/06/2019 Office Visit Family Practice Claire Kelley MD [address] [place] [address] [phone] Name Type Priority Associated Diagnoses Date/Time FERRITIN Lab Routine Microcytic anemia 05/01/2019 2:50 PM EST IRON Lab Routine Microcytic anemia 05/01/2019 2:50 PM EST BASIC METABOLIC PANEL Lab Routine Hypokalemia 05/01/2019 2:50 PM EST MAGNESIUM LEVEL Lab Routine Hypokalemia 05/01/2019 2:50 PM EST CBC WITH DIFFERENTIAL Lab Routine Microcytic anemia 05/01/2019 2:50 PM EST Health Maintenance Due Date Last Done Comments ZOSTER IMMUNIZATION SERIES 10/19/2015 08/24/2015 (2 of 3) PNEUMOCOCCAL 65+YRS (2 of 2 05/14/2017 05/14/2016, 09/21/2009 - PPSV23) MAMMOGRAM (SCREENING) 11/27/2018 11/27/2017, 08/31/2015, 08/31/2015, Additional history exists MEDICARE ANNUAL WELLNESS 11/27/2018 11/27/2017, 02/06/2016 VISIT (Postponed) DEPRESSION SCREENING 06/13/2019 06/12/2018 FALL RISK ASSESSMENT 06/13/2019 06/12/2018, 06/12/2018 DIABETES SCREENING 09/23/2019 09/22/2018, 03/04/2018, 09/26/2017, Additional history exists LIPID DISORDER SCREENING 09/23/2019 09/22/2018, 02/06/2016, 08/23/2015, Additional history exists Colonoscopy 09/28/2019 09/27/2009 LUNG CANCER SCREENING 12/09/2019 06/05/2016, 08/21/2011 Postponed from 06/05/2017 (Other) DTaP/Tdap/Td Vaccines (2 - 02/02/2024 02/01/2014 Tdap) OSTEOPOROSIS SCREENING 09/06/2025 09/07/2015, 01/08/2011, 01/08/2011, Additional history exists INFLUENZA VACCINE Completed 11/25/2018, 11/27/2017, 02/20/2017, Additional history exists HEPATITIS A IMMUNIZATION Aged Out No longer eligible SERIES based on patient's age to complete this topic HPV IMMUNIZATION SERIES Aged Out No longer eligible based on patient's age to complete this topic MENINGOCOCCAL VACCINE IMM Aged Out No longer eligible based on patient's age to complete this topic documented as of this encounter Goals Goal Patient Goal Associated Recent Patient-Stated? Author Type Problems Progress Blood Pressure Blood Pressure Hypertension 120/62 No Allie, < 140/90 (05/01/2019 Claire, 2:11 PM EST) Note: Hypertension Care Plan Based on the [...] Educational Resources. record my blood pressure results. Horacee is safe and secure way for you to do this in your medical record online. limit alcohol consumption. For men two drinks per day and women one drink per day. if currently smoking, will discuss how to quit smoking with my healthcare provider and work towards quitting. Educational Resources: National Heart, Lung, & Blood [place] http://nhlbi.nih.gov/hbp/index.html The DASH Diet Eating Plan http://www.nhlbi.nih.gov/health/health-topics/ topics/dash/ Academy of Nutrition & DIetetics http://eatright.org National Smoking Cessation Site http://smokefree.gov Blood Pressure < Blood Pressure 120/62 (05/01/2019 No Claire Kelley, 140/90 2:11 PM [place] Note: This is an individualized treatment (blood [...] - Current Smoker Lifestyle Tobacco abuse No Claire Kelley MD Note: Smoking Cessation Plan Discussed [...] or telephone counseling Keep immunizations current Lifestyle Claire Hills MD Note: This is an individualized lifestyle [...] is an individualized self-management goal for Chantelle Alverto Sheehana: Please take all prescribed medications as directed. [...] filedocumented in this encounter Visit Diagnoses Diagnosis Chronic obstructive pulmonary disease, unspecified COPD type (HCC) Microcytic anemia Iron deficiency anemia, unspecified Hypokalemia Hypopotassemia documented in this encounter Insurance Payer Benefit Plan / Subscriber ID Effective Dates Phone Address Type Group [facility] MEDICARE AARP MEDICARE [id number] 2017-Present [facility] ADVANTAGE COMPLETE/[facility] PPO Guarantor Name Account Type Relation to Date of Phone Billing Patient Address MarilynChantelle L Personal/Family 1950 [address] (Home) [place], [place] [phone] (Work) documented as of this encounter
--- OUTSIDE RECORDS SUMMARY | 2019-06-03 17:04 | XMS REPORT | Summary of Care ---
:1950 Author Organization [facility] Address [address] [address] Care Team Providers Name Role Phone Claire Kelley Primary Care Provider Reason for Visit Reason Comments Follow Up to COPD , pt also would like to have pneumonia shot and shingrix, pt c/o being weak and her feet burn all the time Encounter Details Date Type Department Care Team Description 05/20/2019 Office Visit [facility] Peripheral neuropathic pain (Primary Dx); Imelda Rangel MD Other iron deficiency anemia; [address] Essential hypertension; [place] [address] [place] [address] Chronic obstructive pulmonary disease, unspecified COPD type ([facility]); [phone] Candidiasis Allergies Active Allergy Reactions Severity Noted Date Comments Latex Other 12/20/2008 Niacin, Antihyperlipidemic Musculoskeletal 01/07/2013 Myalgia, chest pain Statins Musculoskeletal 12/14/2010 myalgia documented as of this encounter (statuses as of 05/20/2019) Medications Medication Sig Dispensed Refills Start Date End Date Status Lenore-3 Fatty Acids Take 2 Caps by 0 [...] Puff BID, Reported on 05/01/2019 2:27 PM PROAIR HFA 108 (90 Base) INHALE TWO PUFFS BY MOUTH 8 g 3 03/23/2019 Active MCG/ACT Inhalation Aero Soln EVERY 4 HOURS NEEDED FOR WHEEZING amLodipine (NORVASC) 5 MG Take 1 Tab by mouth DAILY. 30 Tab 0 03/30/2019 Active Oral Tab Additional Information Patient taking differently: 10 [...] FOR WHEEZING Omeprazole delayed rel TAKE ONE 30 Cap 1 04/30/2019 Active cap 20 MG Oral CAPSULE CAPSULE BY DELAYED RELEASE MOUTH EVERY DAY escitalopram (LEXAPRO) 10 Take 1 Tab by 30 Tab 3 05/04/2019 Active MG Oral Tab mouth DAILY. fluconazole (DIFLUCAN 100 Take 1 Tab by 15 Tab 0 05/06/2019 Active MG) 100 MG Oral Tab mouth DIRECTED. Take 200 mg day one, than 100 mg PO QD montelukast (SINGULAIR) TAKE ONE TABLET 30 Tab 1 05/12/2019 Active 10 MG Oral Tab BY MOUTH EVERY DAY metoprolol succinate TAKE ONE TABLET 30 Tab 1 05/12/2019 Active (TOPROL XL) 50 MG Oral BY MOUTH EVERY TABLET SR 24 HR DAY predniSONE (DELTASONE) 20 60 mg Po QD for 40 Tab 0 05/01/2019 03/04/ Discontinued MG Oral Tab 3 days, 50 mg 2019 (Patient stopped PO QD for 3 the medication) days, 40 mg Po QD for 3 days, 30 mg for 3 days, 20 mg PO QD fort 3 days, 10 mg - for 3 days documented as of this encounter (statuses as of 05/20/2019) Active Problems Problem Noted Date Urticaria 10/17/2011 Chronic urticaria 09/25/2011 Lung nodule 08/30/2011 Hypertension 02/19/2011 Tobacco abuse 12/20/2008 CAD (coronary artery disease) Overview: Cath- 1999 30% LAD COPD (chronic obstructive pulmonary disease) Osteopenia documented as of this encounter (statuses as of 05/20/2019) Resolved Problems Problem Noted Date Resolved Date Urticaria 08/08/2011 09/25/2011 documented as of this encounter (statuses as of 05/20/2019) Immunizations Name Administration Dates Next Due Influenza [...] Sign Reading Time Taken Comments Blood Pressure 160/90 05/20/2019 9:45 forgot to take AM EST medications yesterday Pulse 115 05/20/2019 9:45 AM EST Temperature 36.6 05/20/2019 9:45 C (97.9 AM EST F) Respiratory Rate - - Oxygen Saturation 97% 05/20/2019 9:45 AM EST Inhaled Oxygen - - Concentration Weight 72.6 kg (160 lb) 05/20/2019 9:45 AM EST Height 160 cm (5' 3") 05/20/2019 9:45 AM EST Body Mass Index 28.34 05/20/2019 9:45 AM EST documented in this encounter Patient Instructions Patient InstructionsClaire Kelley MD - 05/20/2019 9:20 AM EST1. Follow up in 2 weeks for Medicare wellness documented in this encounter Progress Notes Claire Kelley MD - 05/20/2019 9:20 AM EST Patient: Chantelle Sanders Date of Service: 05/20/2019 Subjective: Chantelle Sanders is a 68-y.o. female who presents for Chief Complaint Patient presents with ? Follow Up to COPD , pt also would like to have pneumonia shot and shingrix, pt c/o being weak and her feet burn all the time Patient comes follow up COPD exacerbation, Candidosis Resolved cough, improved SOB Resolved soreness in the mouth, pain with swallowing Complains of bilateral feet burning for several weeks. Had in the past intermittently, but recently the symptoms were persistent BP is elevated today. Forgot to take her medications yesterday Past Medical History: Diagnosis Date ? CAD (coronary artery disease) Cath- 1999 30% LAD ? Carotid stenosis stent in L carotid ? COPD (chronic obstructive pulmonary disease) (HCC) ? Endometriosis CASEY ? HTN (hypertension) ? Hyperlipidemia ? Osteopenia ? Squamous cell carcinoma 12/31/11 L Index Finger ? Tubular adenoma nos 2001 Outpatient Medications as of 05/20/2019 Medication Sig Dispense Refill ? acetaminophen (TYLENOL) [...] Puff TWICE DAILY.) 1 Each 1 ? escitalopram (LEXAPRO) 10 MG Oral Tab Take 1 Tab by mouth DAILY. 30 Tab 3 ? fexofenadine (DANNIE) 180 MG Oral Tab Take 180 mg by mouth DAILY. ? fluconazole (DIFLUCAN 100 MG) 100 MG Oral Tab Take 1 Tab by mouth DIRECTED. Take 200 mg day one, than 100 mg PO QD 15 Tab 0 ? hydrochlorothiazide (HCTZ, ORETIC) 25 MG Oral [...] (MULTIVITAMIN ADULT PO) Take by mouth. ? Lenore-3 Fatty Acids (OMEGA 3) 1200 MG Oral [...] TAKE 2 INHALATIONS DAILY 4 g 0 No current facility-administered medications on file as of 05/20/2019. Allergies Allergen Reactions ? Latex Other ? Niaspan [Niacin, Antihyperlipidemic] Musculoskeletal Myalgia, chest pain ? Statins Musculoskeletal myalgia Review of Systems: All remaining review of systems was negative. Objective: BP 160/90 (BP Location: Right arm, Patient Position: Sitting) Pulse 115 Temp 97.9 F (36.6 C) Ht 5' 3" (1.6 m) Wt 160 lb (72.6 kg) SpO2 97% BMI 28.34 kg/m2 GENERAL: alert, no distress THROAT: lips, mucosa, and tongue normal: teeth and gums normal NECK: supple, symmetrical, trachea midline and no adenopathy LUNGS: clear to auscultation bilaterally HEART: regular rate and rhythm, S1, S2 normal, no murmur, click, rub or gallop Examination of the feet reveals warm, good capillary refill, normal DP and PT pulses and reduced sensation at both feet up to the ankle level. ICD-9-CM ICD-10-CM 1. Peripheral neuropathic pain 729.2 M79.2 BASIC METABOLIC PANEL GLYCOHEMOGLOBIN A1C THYROID STIMULATING HORMONE VITAMIN B12 LEVEL 2. Other iron deficiency anemia 280.8 D50.8 CBC WITH DIFFERENTIAL 3. Essential hypertension Will recheck BP next visit 401.9 I10 4. Chronic obstructive pulmonary disease, unspecified COPD type (HCC) Improved 496 J44.9 5. Candidiasis Resolved 112.9 B37.9 Patient Instructions 1. Follow up in 2 weeks for Medicare wellness Author: Claire Kelley MD documented in this encounter Plan of Treatment Date Type Specialty Care Team Description 06/03/2019 Office Visit Family Practice Claire Kelley MD [address] [place] [address] [phone] 07/20/2019 Nurse/Clinical Support Internal Medicine Name Type Priority Associated Diagnoses Date/Time BASIC METABOLIC PANEL Lab Routine Peripheral neuropathic 05/20/2019 10:31 AM pain EST GLYCOHEMOGLOBIN A1C Lab Routine Peripheral neuropathic 05/20/2019 10:31 AM pain EST THYROID STIMULATING HORMONE Lab Routine Peripheral neuropathic 05/20/2019 10:31 AM pain EST CBC WITH DIFFERENTIAL Lab Routine Other iron deficiency 05/20/2019 10:31 AM anemia EST VITAMIN B12 LEVEL Lab Routine Peripheral neuropathic 05/20/2019 10:31 AM pain EST Health Maintenance Due Date Last Done Comments ZOSTER IMMUNIZATION SERIES 10/19/2015 08/24/2015 (2 of 3) PNEUMOCOCCAL 65+YRS (2 of 2 05/14/2017 05/14/2016, 09/21/2009 - PPSV23) MAMMOGRAM (SCREENING) 11/27/2018 11/27/2017, 08/31/2015, 08/31/2015, Additional history exists MEDICARE ANNUAL WELLNESS 11/27/2018 11/27/2017, 02/06/2016 VISIT (Postponed) LIPID DISORDER SCREENING 09/23/2019 09/22/2018, 02/06/2016, 08/23/2015, Additional history exists Colonoscopy 09/28/2019 09/27/2009 LUNG CANCER SCREENING 12/09/2019 06/05/2016, 08/21/2011 Postponed from 06/05/2017 (Other) DIABETES SCREENING 05/01/2020 05/01/2019, 09/22/2018, 03/04/2018, Additional history exists DEPRESSION SCREENING 05/19/2020 05/20/2019 FALL RISK ASSESSMENT 05/19/2020 05/20/2019, 05/20/2019 DTaP/Tdap/Td Vaccines (2 - 02/02/2024 02/01/2014 Tdap) [...] Problems Progress Blood Pressure Blood Pressure Hypertension 160/90 No Allie, < 140/90 (05/20/2019 Claire, 9:45 AM EST) Note: Hypertension Care Plan Based on [...] Educational Resources. record my blood pressure results. eGhildarie is safe and secure way for you to do this in your medical record online. limit alcohol consumption. For men two drinks per day and women one drink per day. if currently smoking, will discuss how to quit smoking with my healthcare provider and work towards quitting. Educational Resources: National Heart, Lung, & Blood [place] http://nhlbi.nih.gov/hbp/index.html The DASH Diet Eating Plan http://www.nhlbi.nih.gov/health/health-topics/ topics/dash/ Academy of Nutrition & DIetetics http://eatright.org National Smoking Cessation Site http://smokefree.gov Blood Pressure < Blood Pressure 160/90 (05/20/2019 No Claire Kelley, 140/90 9:45 AM EST) Note: This is an individualized treatment (blood [...] filedocumented in this encounter Visit Diagnoses Diagnosis Other iron deficiency anemia Peripheral neuropathic pain Essential hypertension Unspecified essential hypertension Chronic obstructive pulmonary disease, unspecified COPD type (HCC) Candidiasis Candidiasis of unspecified site documented in this encounter Insurance Payer Benefit Plan / Subscriber ID Effective Dates Phone Address Type Group [facility] MEDICARE AAR MEDICARE [id number] 2017-Present [facility] ADVANTAGE COMPLETE/[facility] PPO Guarantor Name Account Type Relation to Date of Phone Billing Patient Address Chantelle Sanders Personal/Family 1950 [address] (Home) [place], [place] [phone] (Work) documented as of this encounter
--- OUTSIDE RECORDS SUMMARY | 2019-06-03 17:04 | XMS REPORT | Summary of Care ---
:1950 Author Organization [facility] Address [address] [place] [address] Care Team Providers Name Role Phone Claire Kelley Primary Care Provider Reason for Visit Reason Comments Follow Up COPD Encounter Details Date Type Department Care Team Description 05/06/2019 Office Visit [facility], Chronic obstructive pulmonary disease, unspecified COPD type (HCC) (Primary Dx); Practice MD Claire Candidiasis; [address] [facility] [address] [place] [address] [place] [address] [phone] Allergies Active Allergy Reactions Severity Noted Date Comments Latex Other 12/20/2008 Niacin, Antihyperlipidemic Musculoskeletal 01/07/2013 Myalgia, chest pain Statins Musculoskeletal 12/14/2010 myalgia documented as of this encounter (statuses as of 05/06/2019) Medications Medication Sig Dispensed Refills Start Date End Date Status [place]-3 Fatty Acids Take 2 Caps by 0 [...] DAILY, Reported on 05/01/2019 2:08 PM hydrochlorothiazide (HCTZ, Take 1 Tab by mouth 30 Tab 0 04/02/2019 Active ORETIC) 25 MG Oral Tab DAILY. albuterol-ipratropium (DUO-NEB) INHALE THE CONTENTS OF 90 Vial 0 2019 Active 0.5-2.5 (3) MG/3ML Inhalation ONE VIAL VIA NEBULIZER Solution EVERY 4 HOURS NEEDED FOR WHEEZING Omeprazole delayed rel cap 20 MG TAKE ONE CAPSULE BY 30 Cap 1 04/30/2019 Active Oral CAPSULE DELAYED RELEASE MOUTH EVERY DAY predniSONE (DELTASONE) 20 MG Oral 60 mg Po QD for 3 40 Tab 0 05/01/2019 Active Tab days, 50 mg PO QD for 3 days, 40 mg Po QD for 3 days, 30 mg for 3 days, 20 mg PO QD fort 3 days, 10 mg - for 3 days escitalopram (LEXAPRO) 10 MG Oral Take 1 Tab by mouth 30 Tab 3 05/04/2019 Active Tab DAILY. fluconazole (DIFLUCAN 100 MG) 100 Take 1 Tab by mouth 15 Tab 0 2019 Active MG Oral Tab DIRECTED. Take 200 mg day one, than 100 mg PO QD Hospital, Clinic, or Ordered Dose Route Frequency Start Date End Date Status Other Facility Administered Medication albuterol 2.5 mg IN-SVN NOW 10/03/2018 05/06/2019 Discontinued (PROVENTIL, VENTOLIN) nebulizer unit dose (RT ADMIN) (2.5 MG/3ML) 0.083%Indications: COPD exacerbation (HCC) documented as of this encounter (statuses as of 05/06/2019) Active Problems Problem Noted Date Urticaria 10/17/2011 Chronic urticaria 09/25/2011 Lung nodule 08/30/2011 Hypertension 02/19/2011 Tobacco abuse 12/20/2008 CAD (coronary artery disease) Overview: Cath- 1999 30% LAD COPD (chronic obstructive pulmonary disease) Osteopenia documented as of this encounter (statuses as of 05/06/2019) Resolved Problems Problem Noted Date Resolved Date Urticaria 08/08/2011 09/25/2011 documented as of this encounter (statuses as of 05/06/2019) Immunizations Name Administration Dates Next Due Influenza [...] Sign Reading Time Taken Comments Blood Pressure 114/60 05/06/2019 3:38 PM EST Pulse 100 05/06/2019 3:38 PM EST Temperature 36.9 05/06/2019 3:38 PM EST C (98.4 F) Respiratory Rate - - Oxygen Saturation 96% 05/06/2019 3:38 PM EST Inhaled Oxygen Concentration - - Weight 70.5 kg (155 lb 8 oz) 05/06/2019 3:38 PM EST Height 162.6 cm (5' 4") 05/06/2019 3:38 PM EST Body Mass Index 26.69 05/06/2019 3:38 PM EST documented in this encounter Patient Instructions Patient InstructionsClaire Kelley MD - 05/06/2019 3:40 PM EST1. Take Diflucan 200 mg ( 2 tablets of 100 mg), than - 100 mg once a day 2. Take Iron sulfate 325 mg once a day 3. Follow up in 2 weeks and as needed documented in this encounter Progress Notes Claire Kelley MD - 05/06/2019 3:40 PM EST Patient: Chantelle Sanders Date of Service: 05/06/2019 Subjective: Chantelle Sanders is a 68-y.o. female who presents for Chief Complaint Patient presents with ? Follow Up COPD Patient comes follow up COPD exacerbation Improved SOB on higher dose of Prednisone. Complains of oral sourness, pain with swallowing Has history of Cristiane esophagitis Also started on oral Iron for Iron deficiency Past Medical History: Diagnosis Date ? CAD (coronary artery disease) Cath- 1999 30% LAD ? Carotid stenosis stent in L carotid ? COPD (chronic obstructive pulmonary disease) (HCC) ? Endometriosis CASEY ? HTN (hypertension) ? Hyperlipidemia ? Osteopenia ? Squamous cell carcinoma 12/31/11 L Index Finger ? Tubular adenoma nos 2001 Outpatient Medications as of 05/06/2019 Medication Sig Dispense Refill ? acetaminophen (TYLENOL) [...] (MULTIVITAMIN ADULT PO) Take by mouth. ? [place]-3 Fatty Acids (OMEGA 3) 1200 MG Oral Cap Take 2 Caps by mouth TWICE DAILY. ? Omeprazole delayed rel cap 20 MG Oral CAPSULE DELAYED RELEASE TAKE ONE CAPSULE BY MOUTH EVERY DAY 30 Cap 1 ? predniSONE (DELTASONE) 20 MG Oral Tab 60 mg Po QD for 3 days, 50 mg PO QD for 3 days, 40 mg Po QD for 3 days, 30 mg for 3 days, 20 mg PO QD fort 3 days, 10 mg - for 3 days 40 Tab 0 ? PROAIR HFA 108 (90 Base) MCG/ACT Inhalation Aero Soln INHALE TWO PUFFS BY MOUTH EVERY 4 HOURS NEEDED FOR WHEEZING 8 g 3 ? SPIRIVA RESPIMAT 2.5 MCG/ACT Inhalation Aero Soln TAKE 2 INHALATIONS DAILY 4 g 0 No current facility-administered medications on file as of 05/06/2019. Allergies Allergen Reactions ? Latex Other ? Niaspan [Niacin, Antihyperlipidemic] Musculoskeletal Myalgia, chest pain ? Statins Musculoskeletal myalgia Review of Systems: All remaining review of systems was negative. Objective: BP 114/60 (BP Location: Left arm, Patient Position: Sitting) Pulse 100 Temp 98.4 F (36.9 C) Ht 5' 4" (1.626 m) Wt 155 lb 8 oz (70.5 kg) SpO2 96% BMI 26.69 kg/m2 GENERAL: alert, no distress THROAT: candidosis NECK: supple, symmetrical, trachea midline and no adenopathy LUNGS: Bilaterally reduced air entry HEART: regular rate and rhythm, S1, S2 normal, no murmur, click, rub or gallop CBC microcytic anemia, Iron - low, BMP - elevated sugar, slightly low sodium Component Latest Ref Rng & Units 05/01/2019 05/01/2019 05/01/201905/01/2019 2/ 2:50 PM 2:50 PM 2:50 PM 2:50 PM 2:50 PM WBC COUNT 3.98 - 10.04 K/uL 10.16 (H) RBC 3.93 - 5.22 M/UL 4.17 Hemoglobin 11.2 - 15.7 g/dL 9.5 (L) Hematocrit 34.1 - 44.9 % 32.5 (L) MCV 79.4 - 94.8 FL 77.9 (L) MCH 25.6 - 32.2 PG 22.8 (L) MCHC 32.2 - 35.5 g/dL 29.2 (L) Platelet Count 182 - 369 K/uL 326 MPV 9.4 - 12.3 FL 10.1 RDW 11.7 - 14.4 % 17.5 (H) NEUTROPHILS 34.0 - 71.1 % 83.3 (H) Lymphocyte % 19.3 - 51.7 % 9.9 (L) MONOCYTES 4.7 - 12.5 % 5.7 Eosinophils 0.7 - 5.8 % 0.3 (L) Basophil % 0.1 - 1.2 % 0.4 nRBC % 0.0 - 0.2 % 0.0 Neutrophil # 1.56 - 6.13 K/UL 8.46 (H) Lymphocyte # 1.18 - 3.74 K/UL 1.01 (L) Monocyte # 0.24 - 0.86 K/UL 0.58 Eosinophil # 0.04 - 0.36 K/UL 0.03 (L) Basophil # 0.01 - 0.08 K/UL 0.04 Immature Gran % 0.0 - 0.4 % 0.4 Immature Gran # 0.00 - 0.03 K/uL 0.04 (H) NRBC # 0.00 - 0.12 K/uL 0.00 Glucose (Lab) 70 - 99 mg/dl 132 (H) BUN 7 - 17 mg/dl 17 Creatinine 0.7 - 1.2 mg/dl 0.7 Sodium 134 - 145 mmol/L 133 (L) Potassium 3.5 - 5.1 mmol/L 4.2 Chloride 98 - 107 mmol/L 93 (L) CO2 22 - 30 mmol/L 31 (H) Calcium 8.3 - 10.1 mg/dl 9.5 eGFR See Interpretation Below ml/min/1.73ml Sq >60 BUN/Creatinine Ratio 6 - 22 RATIO 24 (H) Anion Gap 3 - 11 mmol/L 9 Ferritin 11.1 - 264.0 NG/ML 6.5 (L) Iron Serum 37 - 170 UG/DL 20 (L) Magnesium 1.6 - 2.3 MG/DL 2.1 Patient advised on tests results ICD-9-CM ICD-10-CM 1. Chronic obstructive pulmonary disease, unspecified COPD type (HCC) Improved 496 J44.9 2. Candidiasis Diflucan 112.9 B37.9 3. Microcytic anemia Continue Iron Consider EGD, colonoscopy. Capsule study? Repeat blood tests next visit 280.9 D50.9 Patient Instructions 1. Take Diflucan 200 mg ( 2 tablets of 100 mg), than - 100 mg once a day 2. Take Iron sulfate 325 mg once a day 3. Follow up in 2 weeks and as needed Author: Claire Kelley MD documented in this encounter Plan of Treatment Date Type Specialty Care Team Description 05/20/2019 Office Visit Family Practice Claire Kelley MD [address] [place] [address] [phone] Health Maintenance Due Date Last Done Comments ZOSTER IMMUNIZATION SERIES 10/19/2015 08/24/2015 (2 of 3) PNEUMOCOCCAL 65+YRS (2 of 2 05/14/2017 05/14/2016, 09/21/2009 - PPSV23) MAMMOGRAM (SCREENING) 11/27/2018 11/27/2017, 08/31/2015, 08/31/2015, Additional history exists MEDICARE ANNUAL WELLNESS 11/27/2018 11/27/2017, 02/06/2016 VISIT (Postponed) DEPRESSION SCREENING 06/13/2019 06/12/2018 FALL RISK ASSESSMENT 06/13/2019 06/12/2018, 06/12/2018 LIPID DISORDER SCREENING 09/23/2019 09/22/2018, 02/06/2016, 08/23/2015, Additional history exists Colonoscopy 09/28/2019 09/27/2009 LUNG CANCER SCREENING 12/09/2019 06/05/2016, 08/21/2011 Postponed from 06/05/2017 (Other) DIABETES SCREENING 05/01/2020 05/01/2019, 09/22/2018, 03/04/2018, Additional history exists DTaP/Tdap/Td Vaccines (2 - 02/02/2024 02/01/2014 Tdap) [...] Problems Progress Blood Pressure Blood Pressure Hypertension 114/60 No Allie, < 140/90 (05/06/2019 lCaire, 3:38 PM EST) Note: Hypertension Care Plan Based [...] Educational Resources: National Heart, Lung, & Blood [place] http://nhlbi.nih.gov/hbp/index.html The DASH Diet Eating Plan http://www.nhlbi.nih.gov/health/health-topics/ topics/dash/ Academy of Nutrition & DIetetics http://eatright.org National Smoking Cessation Site http://smokefree.gov Blood Pressure < Blood Pressure 114/60 (05/06/2019 No Claire Kelley, 140/90 3:38 PM EST) Note: This is an individualized treatment [...] type (HCC) Candidiasis Candidiasis of unspecified site Microcytic anemia Iron deficiency anemia, unspecified documented in this encounter Insurance Payer Benefit Plan / Subscriber ID Effective Dates Phone Address Type Group UHC MEDICARE AAR MEDICARE [id number] 2017-Present [facility] ADVANTAGE COMPLETE/[facility] PPO Guarantor Name Account Type Relation to Date of Phone Billing Patient Address Chantelle Sanders Personal/Family 1950 [address] (Home) [place], [place] [phone] (Work) documented as of this encounter
[2019-06-03] MEDS ORDERED: methylPREDNISolone SOD 40 MG* 1 ML VIAL IV ONE (18:00)
[2019-06-03 20:33] VITALS: BP 152/97
== END 2019-06-03 20:34 | disposition home or self-care (01) ==
LOC: ED 15:17
DX: J44.9 Chronic obstructive pulmonary disease, unspecified (principal); I10 Essential (primary) hypertension; I25.2 Old myocardial infarction; I73.9 Peripheral vascular disease, unspecified; Z95.5 Presence of coronary angioplasty implant and graft; K21.9 Gastro-esophageal reflux disease without esophagitis; F41.9 Anxiety disorder, unspecified; Z86.73 Personal history of transient ischemic attack (TIA), and cerebral infarction without residual deficits; Z87.891 Personal history of nicotine dependence; Z90.710 Acquired absence of both cervix and uterus; Z90.721 Acquired absence of ovaries, unilateral; Z90.89 Acquired absence of other organs; Z90.49 Acquired absence of other specified parts of digestive tract; Z79.82 Long term (current) use of aspirin; Z79.899 Other long term (current) drug therapy; Z88.8 Allergy status to other drugs, medicaments and biological substances; Z91.040 Latex allergy status
CPT/HCPCS: 36415; 80053; 83605; 83880; 84484; 85025; 86140; 93005; 96365; 96375; 99283; A9270-GY; J2920; J3475

== ENCOUNTER 2019-07-10 09:05 | Emergency (ER) | payer MEDICARE, OTHER ==
--- OUTSIDE RECORDS SUMMARY | 2019-07-10 09:16 | XMS REPORT | Summary of Care ---
:1950 Author Organization [facility] Address [address] [place] [address] Care Team Providers Name Role Phone Claire Kelley Primary Care Provider Reason for Visit Reason Comments Cough exacberation, no fever, no flu sx, SOB, Encounter Details Date Type Department Care Team Description 06/03/2019 Office Visit [facility] Allie, COPD exacerbation Practice MD Claire ([facility]) (Primary Dx) [address] [place] [address] [place] [address] [phone] Allergies Active Allergy Reactions Severity Noted Date Comments Clopidogrel Unknown Reaction 02/27/2017 Did not respond well to it. Hydralazine Hcl Respiratory Reaction Low 02/28/2017 Latex Other 12/20/2008 Niacin, Antihyperlipidemic Musculoskeletal 01/07/2013 Myalgia, chest pain Statins Musculoskeletal 12/14/2010 myalgia documented as of this encounter (statuses as of 06/03/2019) Medications Medication Sig Dispensed Refills Start Date End Date Status [place]-3 Fatty Acids Take 2 Caps by 0 [...] PROAIR HFA 108 (90 Base) INHALE TWO 8 g 3 03/23/2019 Active MCG/ACT Inhalation Aero PUFFS BY MOUTH Soln EVERY 4 HOURS NEEDED FOR WHEEZING hydrochlorothiazide Take 1 Tab by 30 Tab [...] 05/04/2019 Active MG Oral Tab mouth DAILY. montelukast (SINGULAIR) TAKE ONE TABLET 30 Tab 1 05/12/2019 Active 10 MG Oral Tab BY MOUTH EVERY DAY metoprolol succinate TAKE ONE TABLET 30 Tab 1 05/12/2019 Active (TOPROL XL) 50 MG Oral BY MOUTH EVERY TABLET SR 24 HR DAY amLodipine (NORVASC) 10 Take 1 Tab by 30 Tab 5 05/26/2019 Active MG Oral Tab mouth DAILY. Guaifenesin (MUCINEX Take 1 Tab by 60 Tab 5 06/02/2019 Active MAXIMUM STRENGTH) 1200 MG mouth TWICE Oral TABLET SR 12 HR DAILY. amLodipine (NORVASC) 5 MG Take 1 Tab by 30 Tab 0 03/30/201906/02/ Discontinued Oral Tab mouth DAILY. 2020 (Duplicate Order) fluconazole (DIFLUCAN 100 Take 1 Tab by 15 Tab 0 05/06/201906/02/ Discontinued MG) 100 MG Oral Tab mouth 2019 (Therapy DIRECTED. Take Completed) 200 mg day one, than 100 mg PO QD Hospital, Clinic, or Other Ordered Dose Route Frequency Start Date End Date Status Facility Administered Medication albuterol (PROVENTIL, 2.5 mg IN-SVN X1 06/03/2019 06/03/2019 Ended VENTOLIN) nebulizer unit dose (RT ADMIN) (2.5 MG/3ML) 0.083%Indications: COPD exacerbation (HCC) documented as of this encounter (statuses as of 06/03/2019) Active Problems Problem Noted Date Urticaria 10/17/2011 Chronic urticaria 09/25/2011 Lung nodule 08/30/2011 Hypertension 02/19/2011 Tobacco abuse 12/20/2008 CAD (coronary artery disease) Overview: Cath- 1999 30% LAD COPD (chronic obstructive pulmonary disease) Osteopenia documented as of this encounter (statuses as of 06/03/2019) Resolved Problems Problem Noted Date Resolved Date Urticaria 08/08/2011 09/25/2011 documented as of this encounter (statuses as of 06/03/2019) Immunizations Name Administration Dates Next Due Influenza (IM) Preservative Free 11/26/2018, 02/20/2017, 12/15/2012, 11/27/2011, 12/01/2010, 12/20/2008 Influenza Vaccine High Dose 11/25/2018, 11/27/2017, 02/19/2017, 01/23/2016 Influenza Virus Vaccine Pres Free 6-35 11/27/2011 Months PNEUMOCOCCAL POLYSACCHARIDE VACCINE 05/20/2019, 02/19/2017, 09/21/2009 Pneumococcal Conjugate(13 Valent) 05/14/2016 TD Vaccine 02/01/2014 ZOSTER (SHINGRIX) VACCINE 05/20/2019 ZOSTER (ZOSTAVAX) VACCINE 08/24/2015 dT Vaccine 02/01/2014 documented as of this encounter Social History Tobacco Use Types Packs/Day Years Used Date Current Every Day Smoker Cigarettes 1 40 Quit: 01/30/2016 Smokeless Tobacco: Never Used Alcohol Use Drinks/Week oz/Week Comments Yes 2 Cans of beer 2.0 Sex Assigned at Date Recorded Not on file documented as of this encounter Last Filed Vital Signs Vital Sign Reading Time Taken Comments Blood Pressure 134/78 06/03/2019 1:07 PM EDT Pulse 95 06/03/2019 1:07 PM EDT Temperature 36.4 06/03/2019 1:07 PM EDT C (97.5 F) Respiratory Rate 26 06/03/2019 1:07 PM EDT Oxygen Saturation 97% 06/03/2019 1:07 PM EDT Inhaled Oxygen Concentration - - Weight - - Height - - Body Mass Index - - documented in this encounter Progress Notes Claire Kelley MD - 06/03/2019 1:00 PM EDT Patient: Chantelle Sanders Date of Service: 06/03/2019 Subjective: Chantelle Sanders is a 68-y.o. female who presents for Chief Complaint Patient presents with ? Cough exacberation, no fever, no flu sx, SOB, Patient with history of COPD comes with complains of increasing SOB with minimal exertion, productive cough started several days ago. No fever, no recent travel, no contact with a person who recently traveled No nasal congestion, no sore throat. Past Medical History: Diagnosis Date ? CAD (coronary artery disease) Cath- 1999 30% LAD ? Carotid stenosis stent in L carotid ? COPD (chronic obstructive pulmonary disease) (HCC) ? Endometriosis CASEY ? HTN (hypertension) ? Hyperlipidemia ? Osteopenia ? Squamous cell carcinoma 12/31/11 L Index Finger ? Tubular adenoma nos 2001 Outpatient Medications as of 06/03/2019 Medication Sig Dispense Refill ? acetaminophen (TYLENOL) 325 MG Oral Tab Take 650 mg by mouth EVERY FOUR HOURS NEEDED forPain. ? albuterol-ipratropium (DUO-NEB) 0.5-2.5 (3) MG/3ML Inhalation Solution INHALE THE CONTENTS OF ONE VIAL VIA NEBULIZER EVERY 4 HOURS NEEDED FOR WHEEZING 90 Vial 0 ? amLodipine (NORVASC) 10 MG Oral Tab Take 1 Tab by mouth DAILY. 30 Tab 5 ? ASPIRIN 81 PO Take by mouth. [...] Take 180 mg by mouth DAILY. ? Guaifenesin (MUCINEX MAXIMUM STRENGTH) 1200 MG Oral TABLET SR 12 HR Take 1 Tab by mouth TWICE DAILY. 60 Tab 5 ? hydrochlorothiazide (HCTZ, ORETIC) 25 MG Oral [...] (MULTIVITAMIN ADULT PO) Take by mouth. ? [place]-3 Fatty Acids (OMEGA 3) 1200 MG Oral [...] 4 g 0 Facility-Administered Medications as of 06/03/2019 Medication Dose Route Frequency Provider Last Rate Last Dose ? [COMPLETED] albuterol (PROVENTIL, VENTOLIN) nebulizer unit dose (RT ADMIN) (2.5 MG/3ML) 0.083% 2.5 mg Inhalation-SVN X1 2.5 mg at 06/03/19 1315 Allergies Allergen Reactions ? Clopidogrel Bisulfate [Clopidogrel] Unknown Reaction Did not respond well to it. ? Latex Other ? Niaspan [Niacin, Antihyperlipidemic] Musculoskeletal Myalgia, chest pain ? Statins Musculoskeletal myalgia ? Hydralazine Hcl Respiratory Reaction Review of Systems: All remaining review of systems was negative. Objective: BP 134/78 (BP Location: Right arm, Patient Position: Sitting) Pulse 95 Temp 97.5 F (36.4 C) (Tympanic) Resp 26 SpO2 97% GENERAL: Alert, short of breath with minimal exertion EARS: normal tympanic membranes and external ear canals, bilaterally NOSE: Nares normal. Septum midline. Mucosa normal. No drainage or sinus tenderness. THROAT: lips, mucosa, and tongue normal: teeth and gums normal NECK: supple, symmetrical, trachea midline and no adenopathy LUNGS: Bilaterally reduced air entry, diffuse wheezing. After Albuterol breathing treatment - minimal improvement HEART: regular rate and rhythm, S1, S2 normal, no murmur, click, rub or gallop Chest X-ray: chronic changes. Patient continues to be SOB despite breathing treatment and using her Albuterol inhaler while at theX-ray department. Was brought back from the X-ray department in the wheel chair due to the SOB. ICD-9-CM ICD-10-CM 1. COPD exacerbation (HCC) 491.21 J44.1 XR CHEST 2 VIEW PA AND LATERAL ( STANDARD) albuterol (PROVENTIL, VENTOLIN) nebulizer unit dose (RT ADMIN) (2.5 MG/3ML) 0.083% Patient was transported to the ER by an Ambulance for further evaluation and treatment [facility] provider notified Author: Claire Kelley MD documented in this encounter Plan of Treatment Date Type Specialty Care Team Description 07/07/2019 Office Visit [facility] Claire Kelley MD [address] [place] [address] [phone] 07/20/2019 Nurse/Clinical Support Internal Medicine Health Maintenance Due Date Last Done Comments CT Colonography 1950 Cologuard 1950 Colonoscopy 1950 Colorectal Cancer Screening 1950 FIT/FOBT 1950 Sigmoidoscopy 1950 MAMMOGRAM (SCREENING) 11/27/2018 11/27/2017, 08/31/2015, 08/31/2015, Additional history exists MEDICARE ANNUAL WELLNESS 11/27/2018 11/27/2017, 02/06/2016 VISIT (Postponed) ZOSTER IMMUNIZATION SERIES 07/15/2019 05/20/2019, 08/24/2015 (3 of 3) LIPID DISORDER SCREENING 09/23/2019 09/22/2018, 02/06/2016, 08/23/2015, Additional history exists LUNG CANCER SCREENING 12/09/2019 06/05/2016, 08/21/2011 Postponed from 06/05/2017 (Other) DEPRESSION SCREENING 05/19/2020 05/20/2019 DIABETES SCREENING 05/19/2020 05/20/2019, 05/20/2019, 05/01/2019, Additional history exists FALL RISK ASSESSMENT 05/19/2020 05/20/2019, 05/20/2019 DTaP/Tdap/Td Vaccines (2 - 02/02/2024 02/01/2014 Tdap) OSTEOPOROSIS SCREENING 09/06/2025 09/07/2015, 01/08/2011, 01/08/2011, Additional history exists INFLUENZA VACCINE Completed 11/25/2018, 11/27/2017, 02/20/2017, Additional history exists PNEUMOCOCCAL 65+YRS Completed 05/20/2019, 05/14/2016, 09/21/2009 HEPATITIS A IMMUNIZATION Aged Out No longer [...] Problems Progress Blood Pressure Blood Pressure Hypertension 134/78 No Allie, < 140/90 (06/03/2019 Claire, 1:07 PM EDT) Note: Hypertension Care Plan Based [...] Educational Resources: National Heart, Lung, & Blood [place] http://nhlbi.nih.gov/hbp/index.html The DASH Diet Eating Plan http://www.nhlbi.nih.gov/health/health-topics/ topics/dash/ Academy of Nutrition & DIetetics http://eatright.org National Smoking Cessation Site http://smokefree.gov Blood Pressure < Blood Pressure 134/78 (06/03/2019 No Claire Kelley, 140/90 1:07 PM EDT) Note: This is an individualized [...] ongoing basis. documented as of this encounter Procedures Procedure Name Priority Date/Time Associated Diagnosis Comments XR CHEST 2 VIEW PA Routine 06/03/2019 1:51 COPD exacerbation Results for this AND LATERAL PM EDT ([facility]) procedure are in (STANDARD) the results section. documented in this encounter Results XR CHEST 2 VIEW PA AND LATERAL (STANDARD) (06/03/2019 1:51 PM EDT) Specimen Impressions Performed At No gross pneumonic consolidation. The previously identified nodular densities are not identified or not seen to their best advantage on this examination. Given history of smoking, recommend follow-up screening chest CT. Report transcribed by Navid Sommers RPA/RA. Germán Johnson has reviewed the images and preliminary report. Signed by Germán Johnson on 06/03/2019 3:20 PM Narrative Performed At Procedure(s): XR CHEST 2 VIEW PA AND LATERAL (STANDARD) Date of service: 06/03/2019 1:39 PM Provided clinical information: 68 years, Female, "SOB". History of COPD. Procedure and materials: PA and lateral views of chest were obtained. Comparison studies: Chest x-ray performed August 27, 2018, CT chest performed June 05, 2016 Observations: The lungs are hyperinflated with flattening of the diaphragms consistent with COPD. No focal airspace consolidation, pneumothorax or pleural effusion. The previously identified nodular densities are not identified or not seen to their best advantage on this examination. The cardiomediastinal silhouette is unremarkable. No acute osseous abnormality identified within the visualized bony thorax. Procedure Note Interface, Rad Results - 06/03/2019 3:22 PM EDT Procedure(s): XR CHEST 2 VIEW PA AND LATERAL (STANDARD) Date of service: 06/03/2019 1:39 PM Provided clinical information: 68 years, Female, "SOB". History of COPD. Procedure and materials: PA and lateral views of chest were obtained. Comparison studies: Chest x-ray performed August 27, 2018, CT chest performed June 05, 2016 Observations: The lungs are hyperinflated with flattening of the diaphragms consistent with COPD. No focal airspace consolidation, pneumothorax or pleural effusion. The previously identified nodular densities are not identified or not seen to their best advantage on this examination. The cardiomediastinal silhouette is unremarkable. No acute osseous abnormality identified within the visualized bony thorax. IMPRESSION No gross pneumonic consolidation. The previously identified nodular densities are not identified or not seen to their best advantage on this examination. Given history of smoking, recommend follow-up screening chest CT. Report transcribed by Navid Sommers RPA/RA. Germán Johnson has reviewed the images and preliminary report. Signed by Germán Johnson on 06/03/2019 3:20 PM documented in this encounter Visit Diagnoses Diagnosis COPD exacerbation (HCC) Obstructive chronic bronchitis with exacerbation documented in this encounter Administered Medications Medication Order MAR Action Action Date Dose Rate Site albuterol (PROVENTIL, VENTOLIN) Given 06/03/2019 1:15 PM EDT 2.5 mg nebulizer unit dose (RT ADMIN) (2.5 MG/3ML) 0.083% 2.5 mg, Inhalation-SVN, X1, 1 dose, First dose on Sat06/03/19 at 1450, Ordering this RT Admin Medication will automatically order the patient to be placed on the Respiratory Therapy Patient Driven Protocol RT may increase the frequency of administration to q2h, as needed, if symtoms are not controlled at current ordered frequency. If administer three times consecutively without improvement, call provider., documented in this encounter Insurance Payer Benefit Plan / Subscriber ID Effective Dates Phone Address Type Group [facility] MEDICARE [facility] MEDICARE [id number] 2017-Present [facility] ADVANTAGE COMPLETE/[facility] PPO Guarantor Name Account Type Relation to Date of Phone Billing Patient Address Chantelle Sanders Personal/Family 1950 [address] (Home) [place], [place] [phone] (Work) documented as of this encounter
[2019-07-10] MEDS ORDERED: NS 0.9% 1000 ML** 1,000 ML IV ONE (09:27)
[2019-07-10] MEDS ORDERED: methylPREDNISolone 125 MG* 2 ML VIAL IV ONE (09:27)
[2019-07-10] MEDS ORDERED: Azithromycin 500 mg/250 ml NS 500 MG/250 ML BAG IVPB ONE (09:30)
[2019-07-10] MEDS ORDERED: Albuterol/Ipratropium NEB.SOL* (2.5/0.5 MG) 3 ML NEB.SOLN INH ONE ×2 (09:31→11:52)
--- NOTE | 2019-07-10 09:36 | ED ---
Shortness of Breath - HPI Summary HPI Summary: 68-year-old female with a significant past medical history of hypertension, angina, myocardial infarction, peripheral vascular disease, COPD, diverticulosis , GI bleed, rheumatoid arthritis, TIA presents to the emergency department today complaining of one week of increased dyspnea. Patient believes she is having a COPD exacerbation. Patient does not have home oxygen. At this time patient denies interaction with someone being tested for Covid 19. Patient is otherwise well and denies fever, chest pain, abdominal pain, nasal congestion, sore throat, nausea, vomiting or diarrhea. Patient denies recent travel. Patient denies recent weight gain or swelling of the lower extremities. - History of Current Complaint Chief Complaint: EDShortnessOfBreath Time Seen by Provider: 07/10/19 09:17 Hx Obtained From: Patient Onset/Duration: Gradual Onset Timing: Constant Current Severity: Moderate Dyspnea At: Rest Alleviating Factors: Bronchodilators, Oxygen, OTC Meds, Upright Position Associated Signs & Symptoms: Cough (Productive), Wheezing - Allergy/Home Medications Allergies/Adverse Reactions: Allergies Allergy/AdvReac Type Severity Reaction Status Date / Time hydralazine Allergy Severe See Comment Verified 04/27/19 23:11 ezetimibe [From Zetia] Allergy See Comment Verified 06/03/19 15:35 latex Allergy Blisters Verified 04/27/19 23:11 Zsvuazz-Bjp-Lnd Reductase Allergy Leg Cramps Verified 06/03/19 15:35 Inhibitor Home Medications: Home Medications Fexofenadine (NF) [Rajani 180 (NF)] 180 mg PO DAILY 02/04/14 [History Confirmed 07/10/19] Witherbee-3/Dha/Epa/Fish Oil [Witherbee-3 Fish Oil 1,200 mg Sfgl] 2 cap PO BID 12/18/16 [History Confirmed 07/10/19] Aspirin EC TAB* [Ecotrin EC Low Dose 81 MG*] 81 mg PO DAILY 06/08/17 [History Confirmed 07/10/19] Multivitamins/Minerals TAB* [Theragran/minerals TAB*] 1 tab PO DAILY 06/08/17 [ History Confirmed 07/10/19] Acetaminophen TAB* [Tylenol TAB*] 650 mg PO Q4H PRN tab 09/03/17 [Rx Confirmed 07/10/19] Metoprolol Succinate XL TAB* [Toprol XL TAB*] 50 mg PO DAILY 02/17/18 [History Confirmed 07/10/19] Albuterol inh POWDER (NF) [Proair Respiclick] 2 puff PO Q4HR PRN 11/21/18 [ History Confirmed 07/10/19] Albuterol/Ipratropium NEB.SABRINA* [Duoneb (Albuterol 2.5 MG/Ipratropium 0.5 MG)] 3 ml INH Q6H PRN 11/21/18 [History Confirmed 07/10/19] Fluticasone/Vilanterol [Breo Ellipta 200-25 Mcg INH] 1 inh PO DAILY 11/21/18 [ History Confirmed 07/10/19] Montelukast Sodium TAB* [Singulair 10 MG TAB*] 10 mg PO DAILY 11/21/18 [History Confirmed 07/10/19] Omeprazole CAP (NF) [Prilosec CAP* 20 MG] 20 mg PO DAILY 11/21/18 [History Confirmed 07/10/19] guaiFENesin ER TAB [Mucinex*] 1,200 mg PO BID 11/21/18 [History Confirmed ] amLODIPine TAB* [Norvasc 5 mg TAB*] 10 mg PO DAILY #60 tab 11/28/18 [Rx Confirmed 07/10/19] Escitalopram * [Lexapro 10 mg (NF)] 10 mg PO DAILY 07/10/19 [History Confirmed 07/10/19] Hydrochlorothiazide TAB* [Hydrodiuril TAB*] 25 mg PO DAILY 07/10/19 [History Confirmed 07/10/19] Tiotropium [place] [Spiriva Respimat] 2 puff INH DAILY 07/10/19 [History Confirmed 07/10/19] predniSONE 20 mg TAB [Deltasone 20 MG TAB*] 40 mg PO DAILY #8 tab 07/10/19 [Rx] PMH/Surg Hx/FS Hx/Imm Hx Endocrine/Hematology History: Denies: Hx Diabetes Cardiovascular History: Reports: Hx Angina, Hx Hypertension, Hx Myocardial Infarction, Hx Peripheral Vascular Disease, Other Cardiovascular Problems/ Disorders - 2 carotid stents Denies: Hx Congestive Heart Failure, Hx Pacemaker/ICD Respiratory History: Reports: Hx Asthma, Hx Chronic Obstructive Pulmonary Disease (COPD) GI History: Reports: Hx Diverticulosis, Hx Gall Bladder Disease, Hx Gastroesophageal Reflux Disease, Hx Gastrointestinal Bleed, Other GI Disorders - DIVERTICULITIS History: Reports: Hx Kidney Infection, Other Problems/Disorders - HX MILD RENAL INSUFFICIENCY Denies: Hx Renal Disease Musculoskeletal History: Reports: Hx Arthritis - RA, Hx Rheumatoid Arthritis Sensory History: Denies: Hx Contacts or Glasses, Hx Legally Blind, Hx Deafness, Hx Hearing Aid , Other Sensory Impairments Opthamlomology History: Denies: Hx Contacts or Glasses, Hx Legally Blind, Other Sensory Impairments Neurological History: Reports: Hx Headaches, Hx Transient Ischemic Attacks (TIA) Psychiatric History: Reports: Hx Anxiety Denies: Hx Panic Disorder - Cancer History Cancer Type, Location and Year: skin on finger--removed - Surgical History Surgery Procedure, Year, and Place: HYSTERECTOMY, OOPHRECTOMY, APENDECTOMY, CHOLECYSTECTOMY,TONSILECTOMY,URINARY TRACT SURGERY Hx Anesthesia Reactions: No - Immunization History Date of Tetanus Vaccine: current Date of Influenza Vaccine: 2015 Infectious Disease History: No Infectious Disease History: Denies: Traveled Outside the [place] in Last 30 Days - Family History Known Family History: Positive: Cardiac Disease, Hypertension, Diabetes, Respiratory Disease - COPD, Other - stroke - Social History Alcohol Use: Daily Alcohol Amount: 2/day Hx Substance Use: No Substance Use Type: Reports: None Hx Tobacco Use: Yes Smoking Status (MU): Former Smoker Type: Cigarettes Length of Time of Smoking/Using Tobacco: 50 years Have You Smoked in the Last Year: Yes Review of Systems Constitutional: Negative Eyes: Negative ENT: Negative Cardiovascular: Negative Positive: Shortness Of Breath, Cough Gastrointestinal: Negative Genitourinary: Negative Musculoskeletal: Negative Skin: Negative Neurological/Mental Status: Negative Psychological: Normal All Other Systems Reviewed And Are Negative: Yes Physical Exam - Summary Physical Exam Summary: Patient is in no acute distress however there is mild accessory muscle use and patient is hypoxic on room air. Auscultation of the lungs revealed diminished breath sounds throughout with wheezing. No evidence of consolidation. Patient is tachycardic with normal S1, S2 no evidence of murmur. Triage Information Reviewed: Yes Vital Signs On Initial Exam: Initial Vitals Temp Pulse Resp BP Pulse Ox 97.7 F 115 22 155/89 92 07/10/19 09:16 07/10/19 09:16 07/10/19 09:16 07/10/19 09:16 07/10/19 09:16 Vital Signs Reviewed: Yes Appearance: Positive: Well-Appearing, No Pain Distress, Well-Nourished Skin: Positive: Warm, Skin Color Reflects Adequate Perfusion Eyes: Positive: EOMI, GRZEGORZ ENT: Positive: Hearing grossly normal Respiratory/Lung Sounds: Positive: Breath Sounds Present, Decreased Breath Sounds, Wheezes. Negative: Unable to speak in full sentences Cardiovascular: Positive: Tachycardia, S1, S2 Abdomen Description: Positive: Nontender, Soft Bowel Sounds: Positive: Present Musculoskeletal: Positive: Strength/ROM Intact Neurological: Positive: Sensory/Motor Intact, Alert, Oriented to Person Place, Time, Normal Gait, Facial Symmetry, Speech Normal Psychiatric: Positive: Normal, Affect/Mood Appropriate AVPU Assessment: Alert Procedures - Sedation Patient Received Moderate/Deep Sedation with Procedure: No Diagnostics - Vital Signs Vital Signs Temp Pulse Resp BP Pulse Ox 07/10/19 09:16 97.7 F 115 22 155/89 92 - Laboratory Result Diagrams: 07/10/19 09:50 07/10/19 09:50 Lab Statement: Any lab studies that have been ordered have been reviewed, and results considered in the medical decision making process. Course/Dx - Course Course Of Treatment: Patient was evaluated in the emergency department today for COPD exacerbation. Patient was tested for COVID19 today. Patient will be contacted with these results in 2-3 days by the Department of Health. Vitals noted and stable. Patient had no evidence of significant labored breathing. Patient was given 1 L of normal saline via IV as well as 125 mg Solu-Medrol and 500 mg of azithromycin. Patient was initially worked up as sepsis due to her tachypnea and tachycardia however the symptoms resolved after IV fluids and steroids. Laboratory results returned showing no significant evidence of sepsis with no leukocytosis, normal lactic acid, no anemia or significant electrolyte disturbance other than mild hypokalemia. Patient will be given by mouth potassium. Chest x-ray was done which showed no pneumonia with no acute process. Patient discharged with prescription for steroids. Patient's symptoms appear to be due to a noninfectious COPD exacerbation. Patient discharged with outpatient follow-up. Patient will remain quarantined until test results return. - Diagnoses Differential Diagnosis/HQI/PQRI: Positive: Airway Obstruction, Asthma, Bronchitis, CHF, COPD Exacerbation, Pneumonia Provider Diagnoses: COPD exacerbation, Hypokalemia - Critical Care Time Critical Care Statement: Critical care time is provided exclusive of any time spent performing procedures. Discharge ED - Sign-Out/Discharge Documenting (check all that apply): Patient Departure - Discharge Plan Condition: Stable Disposition: HOME Prescriptions: predniSONE 20 mg TAB [Deltasone 20 MG TAB*] 40 mg PO DAILY #8 tab Patient Education Materials: COPD (Chronic Obstructive Pulmonary Disease) (ED) Forms: COVID-19 Tested & Isolation Referrals: Claire Kelley MD [Primary Care Provider] - 3 Days Additional Instructions: Please stay home until the Department of Health contacts you with your test results. Please take steroids as directed. Please continue to take your COPD medications. Please follow up with your primary care provider in 3-5 days for further evaluation and management. Please return to this emergency Department immediately should you develop any new or worsening symptoms. - Billing Disposition and Condition Condition: STABLE Disposition: Home
[2019-07-10 10:08] LABS: ABS Eosinophils 0.4 10^3/ul (0-0.6); ABS Monocytes 0.6 10^3/ul (0-0.8); ABS Neutrophils 4.5 10^3/ul (1.5-7.7); Eosinophil % 5.8 %; Hematocrit 43 % (35-47); Hemoglobin 14.1 g/dL (12.0-16.0); Lymphocyte % 15.9 %; Mean Corpuscular HGB Conc 33 g/dL (31-36); Mean Corpuscular Hemoglobin 27 pg (27-31); Mean Corpuscular Volume 82 fL (80-97); Mean Platelet Volume 7.7 fL (7.4-10.4); Platelet Count 241 10^3/uL (150-450); Red Blood Count 5.27 10^6 /uL (3.70-4.87); Red Cell Distribution Width 21 % (10-15); White Blood Count 6.6 10^3/uL (3.5-10.8)
[2019-07-10 10:26] LABS: Albumin 4.5 g/dL (3.2-5.2); Albumin/Globulin Ratio 1.9 (1-3); BUN/Creatinine Ratio 11.4 (8-20); C Reactive Protein 3.34 mg/L (<8.01); Calcium 9.6 mg/dL (8.6-10.3); EGFR African American 87.6 (>60); EGFR Non-African American 72.4 (>60); Globulin 2.4 g/dL (2-4); Potassium 2.9 mmol/L (3.5-5.0); Total Bilirubin 0.3 mg/dL (0.2-1.0); Total Protein 6.9 g/dL (6.4-8.9)
[2019-07-10 10:28] LABS: Troponin I 0.01 ng/mL (<0.03)
[2019-07-10] MEDS ORDERED: Potassium Chlor TAB* 20 MEQ TAB.ER PO ONE ×2 (10:46→11:49)
--- NOTE | 2019-07-10 13:19 | CONS ---
CC: Dr. Kelley; Dr. Osman; RAY Cooley CONSULTATION REPORT: DATE OF CONSULT: 07/10/19 PRIMARY CARE PROVIDER: Dr. Kelley. REQUESTING PHYSICIAN: Dr. Osman from the emergency department. REASON FOR CONSULT: Hypoxemia and COPD exacerbation. CHIEF COMPLAINT: Shortness of breath. HISTORY OF PRESENT ILLNESS: Chantelle Sanders is a 68-year-old female with a history of oxygen-dependent COPD, who uses oxygen at 2 L continuously at home. The patient has been having problems with wheezi ng and shortness of breath for the past few days. Last time she used prednisone taper was a little b it less than a month ago. She stated that usually when her breathing is so bad, she needs to be place d on prednisone before getting better. It appeared that the ED staff was not aware that the patient was on oxygen continuously at home. The consultation was for the patient to be admitted to the hospital due to her being hypoxemic. At this point, she is with oxygen saturation of 93% on 2 L of oxygen via nasal cannula, and she would prefer to go home due to the COVID pandemic. Please also mention that she was tested for COVID during her ED stay. The patient denies any productive cough, but she has occasional dry cough. She has not been febrile. PAST MEDICAL HISTORY: 1. GI bleed in 2018, during that time Brilinta was stopped. 2. History of multiple hypoxemic respiratory failures in the past and stay in the ICU in the past. 3. History of chronic hypoxemic respiratory failure, on 2 L of oxygen at home. 4. Anxiety. 5. Tobacco use. 6. History of coronary artery disease. 7. Hypertension. 8. Hyperlipidemia. 9. History of CVA. 10. Status post left carotid artery stenting. 11. Diverticulosis. 12. History of esophageal candidiasis. MEDICATIONS AT HOME: Include: 1. Oxygen at 2 L continuously. 2. Spiriva 2 inhalations daily. 3. Albuterol 2 puffs every 4 hours p.r.n. 4. Omeprazole 20 mg daily. 5. Mystic-3 fatty acids 2 capsules b.i.d. 6. Multivitamin 1 tablet daily. 7. Singulair 10 mg daily. 8. Guaifenesin 1200 mg b.i.d. 9. Toprol-XL 50 mg daily. 10. Hydrochlorothiazide 25 mg daily. 11. Breo Ellipta 1 inhalation daily. 12. Rajani 180 mg daily. 13. Lexapro 10 mg daily. 14. Amlodipine 10 mg daily. 15. Aspirin 81 mg daily. 16. DuoNeb on a p.r.n. basis. ALLERGIES: HYDRALAZINE and LATEX. FAMILY HISTORY: Mother at the age of 93 from "old age." Father secondary to COPD in his 7 0s. SOCIAL HISTORY: The patient lives alone. She stopped smoking within the past year. She denies any drug use. She drinks an occasional glass of wine. Healthcare proxy is her daughter Adela. Her code status is full. REVIEW OF SYSTEMS: Please see history of present illness. All the remaining 12 systems were reviewe d with the patient and were otherwise negative. PHYSICAL EXAM: Blood pressure of 154/84, heart rate of 100 and regular, respiratory rate 18, oxygen saturation 96% on 2 L of oxygen via nasal cannula, temperature of 97.7. General: The patient is a marin hawthorne pleasant 68-year-old female, who is in no acute distress. The patient is alert and oriented x3. HEENT: Head: Atraumatic, normocephalic. Eyes: Pupils are equal, reactive to light and accommodati on. Oropharynx is clear. Mucosa moist. Neck: Supple. No JVD. No bruits bilaterally. Cardiovasc ular: Regular rate and rhythm. Tachycardia. No murmur. Respiratory: Diffuse wheezes in bilateral lower and mid lungs on auscultation. Abdomen: Soft, nontender. Bowel sounds present in all 4 quad rants. Extremities: There is no edema. Pulses are +2 bilaterally. No clubbing or cyanosis. On alessio ro evaluation, speech is clear. Cranial nerves II through XII grossly intact. Motor strength is 5/5 bilaterally. On evaluation of the skin, no ecchymotic areas or rashes noted. DIAGNOSTIC STUDIES/LAB DATA: Laboratory data showed white blood cell count of 6.6, hemoglobin of 14. 1, hematocrit of 43, and platelets of 241. Sodium was 133, potassium 2.9, chloride 95, carbon dioxide 26, BUN 9, creatinine 0.79. Liver functio n tests unremarkable. Troponin of 0.01. Portable chest x-ray: "No evidence for acute disease." The patient's EKG showed sinus tachycardia with a heart rate of 106 beats per minute with ST depressi ons in lateral leads of V4 and V6 as well as II, III, and aVF. Comparing with an EKG from May, those changes are similar. ASSESSMENT AND PLAN: Hypoxemic respiratory failure. The patient has chronic hypoxemic respiratory f ailure, and she is on oxygen at home at 2 L. I educated the patient that when she is in exacerbation especially when she is ambulating, she can increase her oxygen to 4 L via nasal cannula. I also spo ke with the patient's physician assistant professor of psychology in the ED, Binu, to prescribe for the patient prednisone tap er and azithromycin at discharge. The patient is going to be utilizing her own DuoNeb at discharge. At this point, the patient prefers to be discharged to home due to the COVID pandemic. I do not see any indications for acute admission since she is using oxygen at home already and currently appears comfortable to continue that at home. The case was discussed with the patient's ED provider. TIME SPENT: Approximately 55 minutes was spent on consultation of this patient, more than half that time was spent [id number] with the patient during the interview and physical exam. [id number]/[facility] #: [id number]
[2019-07-10 13:35] VITALS: BP 142/97
--- NOTE | 2019-07-11 22:15 | ED ---
Imaging and Labs Follow Up Follow Up Type: Labs/Cultures Labs/Culture Result: aerobic culture grew gram pos cocci in clusters. staph aureus and MRSA neg. could be contaminant Patient Communication/Plan: left voicemail at 10:13pm explaining results and that should call ED back and if having fevers should return to ED Provider Diagnoses: COPD exacerbation, Hypokalemia
== END 2019-07-10 13:35 | disposition home or self-care (01) ==
LOC: ED 09:05
DX: J44.1 Chronic obstructive pulmonary disease with (acute) exacerbation (principal); J45.901 Unspecified asthma with (acute) exacerbation; Z20.828 Contact with and (suspected) exposure to other viral communicable diseases; E87.6 Hypokalemia; M06.9 Rheumatoid arthritis, unspecified; F41.9 Anxiety disorder, unspecified; Z85.828 Personal history of other malignant neoplasm of skin; Z79.82 Long term (current) use of aspirin; I10 Essential (primary) hypertension; I21.9 Acute myocardial infarction, unspecified; I73.9 Peripheral vascular disease, unspecified; E78.5 Hyperlipidemia, unspecified; Z86.73 Personal history of transient ischemic attack (TIA), and cerebral infarction without residual deficits; Z72.0 Tobacco use
CPT/HCPCS: 36415; 71045; 80053; 83605; 83880; 84484; 85025; 86140; 87040; 87077; 87150; 87205; 87635; 93005; 96360; 96361; 96374; 96375; 99285; A9270-GY; J0456; J2930; J7620; U0003

== ENCOUNTER 2019-07-12 09:47 | Inpatient (IN) | payer MEDICARE ==
[2019-07-12] MEDS ORDERED: NS 0.9% 1000 ml BAG 1,000 ML IV ONE (09:59)
[2019-07-12] MEDS ORDERED: Albuterol 0.5% CONC NEB.SOL 5 mg/ml 20 ml BOT INH ONE (09:59)
[2019-07-12] MEDS ORDERED: Albuterol (2.5 MG) 0.5 % CONC 0.5 ML NEB.SOLN INH ONE ×2 (10:24→10:25)
[2019-07-12 10:48] LABS: ABS Lymphocytes 0.7 10^3/ul (1.0-4.8); ABS Monocytes 0.5 10^3/ul (0-0.8); Eosinophil % 0.2 %; Hematocrit 43 % (35-47); Lymphocyte % 5.5 %; Mean Corpuscular HGB Conc 33 g/dL (31-36); Mean Corpuscular Hemoglobin 27 pg (27-31); Mean Corpuscular Volume 83 fL (80-97); Nucleated Red Blood Cells % 0.1; Platelet Count 235 10^3/uL (150-450); Red Blood Count 5.15 10^6 /uL (3.70-4.87); Red Cell Distribution Width 21 % (10-15); White Blood Count 12.6 10^3/uL (3.5-10.8)
[2019-07-12 11:04] LABS: Albumin 4.7 g/dL (3.2-5.2); Albumin/Globulin Ratio 1.6 (1-3); BUN/Creatinine Ratio 12.3 (8-20); Calcium 10.5 mg/dL (8.6-10.3); EGFR African American 85.1 (>60); EGFR Non-African American 70.3 (>60); Globulin 2.9 g/dL (2-4); Potassium 3.2 mmol/L (3.5-5.0); Total Bilirubin 0.3 mg/dL (0.2-1.0); Total Protein 7.6 g/dL (6.4-8.9)
[2019-07-12] MEDS ORDERED: cefTRIAXone ADVAN VIAL 1 GM in NS 0.9% 50 ML 50 ML IVPB ONE (11:10)
[2019-07-12] MEDS ORDERED: Albuterol/Ipratropium NEB.SOL (2.5/0.5 MG) 3 ML NEB.SOLN INH PRN (12:07)
[2019-07-12] MEDS ORDERED: Azithromycin 500 mg/250 ml NS 500 MG/250 ML BAG IVPB ONE (12:10)
[2019-07-12] MEDS ORDERED: Lorazepam PYXIS KEY PRN (13:37)
[2019-07-12] MEDS: LORazepam 2 mg VIAL 1 ml IV PUSH PRN ×2 (13:45→20:12)
[2019-07-12] MEDS: Lactated Ringers 1000 ml BAG 1,000 ML IV SCH (13:46)
[2019-07-12] MEDS: Albuterol/Ipratropium NEB.SOL (2.5/0.5 MG) 3 ML NEB.SOLN INH SCH (19:22)
[2019-07-13] MEDS: LORazepam 2 mg VIAL 1 ml IV PUSH PRN ×3 (01:39→07:22)
[2019-07-13] MEDS: Lactated Ringers 1000 ml BAG 1,000 ML IV SCH (01:54)
[2019-07-13] MEDS: Albuterol/Ipratropium NEB.SOL (2.5/0.5 MG) 3 ML NEB.SOLN INH SCH ×6 (02:56→23:16)
[2019-07-13] MEDS: Albuterol 2.5mg/3 ml (0.083%) NEB.SOLN INH PRN ×2 (03:13→16:47)
[2019-07-13] MEDS: Multivitamins/Minerals TAB PO SCH (07:20)
[2019-07-13] MEDS: Aspirin EC 81 mg TAB.EC (enteric coated) PO SCH (07:20)
[2019-07-13 08:05] LABS: ABS Lymphocytes 0.9 10^3/ul (1.0-4.8); ABS Monocytes 0.7 10^3/ul (0-0.8); Hematocrit 40 % (35-47); Hemoglobin 12.9 g/dL (12.0-16.0); Lymphocyte % 9.3 %; Mean Corpuscular HGB Conc 32 g/dL (31-36); Mean Corpuscular Hemoglobin 27 pg (27-31); Mean Corpuscular Volume 84 fL (80-97); Mean Platelet Volume 7.7 fL (7.4-10.4); Nucleated Red Blood Cells % 0.1; Platelet Count 217 10^3/uL (150-450); Red Blood Count 4.75 10^6 /uL (3.70-4.87); Red Cell Distribution Width 22 % (10-15); White Blood Count 9.9 10^3/uL (3.5-10.8)
[2019-07-13 08:16] LABS: Albumin 4.4 g/dL (3.2-5.2); Albumin/Globulin Ratio 1.8 (1-3); BUN/Creatinine Ratio 14.7 (8-20); Calcium 9.7 mg/dL (8.6-10.3); EGFR African American 104.1 (>60); Globulin 2.5 g/dL (2-4); Potassium 3.4 mmol/L (3.5-5.0); Total Bilirubin 0.3 mg/dL (0.2-1.0); Total Protein 6.9 g/dL (6.4-8.9)
[2019-07-13] MEDS ORDERED: Potassium Chlor 20 meq TAB.ER PO ONE (08:34)
[2019-07-13] MEDS: Mometasone/Formoter 200/5 MDI INH SCH ×2 (09:12→19:33)
[2019-07-13] MEDS: SPIRIVA Respimat (tiotropium) 2.5 mcg/inh Inhaler INH SCH (09:12)
[2019-07-14] MEDS: Albuterol/Ipratropium NEB.SOL (2.5/0.5 MG) 3 ML NEB.SOLN INH SCH ×6 (03:10→23:15)
[2019-07-14] MEDS: SPIRIVA Respimat (tiotropium) 2.5 mcg/inh Inhaler INH SCH (07:41)
[2019-07-14] MEDS: Mometasone/Formoter 200/5 MDI INH SCH ×2 (07:41→19:22)
[2019-07-14] MEDS ORDERED: Potassium Chlor 20 meq TAB.ER PO ONE (08:25)
[2019-07-14] MEDS: Aspirin EC 81 mg TAB.EC (enteric coated) PO SCH (08:28)
[2019-07-14] MEDS: Multivitamins/Minerals TAB PO SCH (08:28)
[2019-07-14] MEDS: Enoxaparin 40 MG/0.4 ML SYR(*) SUBCUT SCH (17:29)
[2019-07-15] MEDS: Albuterol/Ipratropium NEB.SOL (2.5/0.5 MG) 3 ML NEB.SOLN INH SCH ×4 (03:17→19:18)
[2019-07-15] MEDS: SPIRIVA Respimat (tiotropium) 2.5 mcg/inh Inhaler INH SCH (08:02)
[2019-07-15] MEDS: Mometasone/Formoter 200/5 MDI INH SCH ×2 (08:03→19:19)
[2019-07-15] MEDS: Aspirin EC 81 mg TAB.EC (enteric coated) PO SCH (08:25)
[2019-07-15] MEDS: Multivitamins/Minerals TAB PO SCH (08:25)
[2019-07-15] MEDS ORDERED: Albuterol/Ipratropium NEB.SOL (2.5/0.5 MG) 3 ML NEB.SOLN INH SCH (11:00)
[2019-07-15] MEDS: Enoxaparin 40 MG/0.4 ML SYR(*) SUBCUT SCH (17:13)
[2019-07-16] MEDS: Albuterol/Ipratropium NEB.SOL (2.5/0.5 MG) 3 ML NEB.SOLN INH SCH ×4 (01:35→19:07)
[2019-07-16 07:28] LABS: BUN/Creatinine Ratio 17.9 (8-20); Calcium 8.9 mg/dL (8.6-10.3); EGFR African American 105.9 (>60); EGFR Non-African American 87.5 (>60); Potassium 2.8 mmol/L (3.5-5.0)
[2019-07-16] MEDS: Mometasone/Formoter 200/5 MDI INH SCH ×2 (08:12→22:56)
[2019-07-16] MEDS: SPIRIVA Respimat (tiotropium) 2.5 mcg/inh Inhaler INH SCH (08:12)
[2019-07-16] MEDS: Multivitamins/Minerals TAB PO SCH (09:32)
[2019-07-16] MEDS: Aspirin EC 81 mg TAB.EC (enteric coated) PO SCH (09:33)
[2019-07-16] MEDS: Enoxaparin 40 MG/0.4 ML SYR(*) SUBCUT SCH (18:17)
[2019-07-17] MEDS: Albuterol/Ipratropium NEB.SOL (2.5/0.5 MG) 3 ML NEB.SOLN INH SCH ×3 (01:00→21:57)
[2019-07-17] MEDS: Multivitamins/Minerals TAB PO SCH (09:00)
[2019-07-17] MEDS: Aspirin EC 81 mg TAB.EC (enteric coated) PO SCH (09:00)
[2019-07-17] MEDS: Enoxaparin 40 MG/0.4 ML SYR(*) SUBCUT SCH (18:00)
[2019-07-17] MEDS: SPIRIVA Respimat (tiotropium) 2.5 mcg/inh Inhaler INH SCH (21:56)
[2019-07-17] MEDS: Mometasone/Formoter 200/5 MDI INH SCH (21:56)
[2019-07-18] MEDS: Mometasone/Formoter 200/5 MDI INH SCH ×3 (00:44→19:04)
[2019-07-18] MEDS: Albuterol/Ipratropium NEB.SOL (2.5/0.5 MG) 3 ML NEB.SOLN INH SCH ×4 (01:25→19:03)
[2019-07-18] MEDS: SPIRIVA Respimat (tiotropium) 2.5 mcg/inh Inhaler INH SCH (07:03)
[2019-07-18] MEDS: Aspirin EC 81 mg TAB.EC (enteric coated) PO SCH (08:28)
[2019-07-18] MEDS: Multivitamins/Minerals TAB PO SCH (08:28)
[2019-07-18] MEDS ORDERED: Potassium Chlor 20 meq TAB.ER PO ONE (17:34)
[2019-07-18] MEDS: Enoxaparin 40 MG/0.4 ML SYR(*) SUBCUT SCH (17:47)
[2019-07-19] MEDS: Albuterol/Ipratropium NEB.SOL (2.5/0.5 MG) 3 ML NEB.SOLN INH SCH ×4 (01:03→19:03)
[2019-07-19 05:00] LABS: BUN/Creatinine Ratio 18.8 (8-20); Calcium 9.5 mg/dL (8.6-10.3); EGFR African American 102.4 (>60); EGFR Non-African American 84.6 (>60)
[2019-07-19] MEDS: SPIRIVA Respimat (tiotropium) 2.5 mcg/inh Inhaler INH SCH (07:13)
[2019-07-19] MEDS: Mometasone/Formoter 200/5 MDI INH SCH ×2 (07:13→19:04)
[2019-07-19] MEDS: Multivitamins/Minerals TAB PO SCH (08:15)
[2019-07-19] MEDS: Aspirin EC 81 mg TAB.EC (enteric coated) PO SCH (08:16)
[2019-07-19] MEDS ORDERED: Albuterol/Ipratropium NEB.SOL (2.5/0.5 MG) 3 ML NEB.SOLN INH SCH (12:00)
[2019-07-19] MEDS ORDERED: Magnesium Sulf 4 GM/100 ML IV 4,000 MG/100 ML BAG IVPB ONE (12:02)
[2019-07-19] MEDS: KCL 20 MEQ/100 ML IVPREMIX 20 MEQ/100 ML BAG IV SCH ×2 (12:23→17:58)
[2019-07-19 12:30] LABS: Magnesium 1.9 mg/dL (1.9-2.7)
[2019-07-19 12:37] LABS: ABS Eosinophils 0.1 10^3/ul (0-0.6); ABS Lymphocytes 0.6 10^3/ul (1.0-4.8); ABS Monocytes 1.3 10^3/ul (0-0.8); Eosinophil % 0.4 %; Hematocrit 42 % (35-47); Hemoglobin 14.1 g/dL (12.0-16.0); Lymphocyte % 4.1 %; Mean Corpuscular HGB Conc 33 g/dL (31-36); Mean Corpuscular Hemoglobin 27 pg (27-31); Mean Corpuscular Volume 82 fL (80-97); Mean Platelet Volume 7.7 fL (7.4-10.4); Platelet Count 278 10^3/uL (150-450); Red Blood Count 5.13 10^6 /uL (3.70-4.87); Red Cell Distribution Width 20 % (10-15); White Blood Count 15.5 10^3/uL (3.5-10.8)
[2019-07-19] MEDS: Enoxaparin 40 MG/0.4 ML SYR(*) SUBCUT SCH (17:59)
[2019-07-20] MEDS: Albuterol/Ipratropium NEB.SOL (2.5/0.5 MG) 3 ML NEB.SOLN INH SCH ×2 (01:00→07:45)
[2019-07-20] MEDS: KCL 20 MEQ/100 ML IVPREMIX 20 MEQ/100 ML BAG IV SCH ×2 (01:05→04:51)
[2019-07-20] MEDS: SPIRIVA Respimat (tiotropium) 2.5 mcg/inh Inhaler INH SCH (07:45)
[2019-07-20] MEDS: Mometasone/Formoter 200/5 MDI INH SCH (07:45)
[2019-07-20] MEDS: Multivitamins/Minerals TAB PO SCH (08:31)
[2019-07-20] MEDS: Aspirin EC 81 mg TAB.EC (enteric coated) PO SCH (08:32)
[2019-07-20 12:18] VITALS: BP 137/52
== END 2019-07-20 13:30 | disposition home or self-care (01) | DRG 190 ==
LOC: ED 09:47 → ICU 12:02 → MEDTELE 07-13 10:20
PROVIDERS: ADMIT Internal Medicine Critical Care Medicine; ATTEND Internal Medicine

== ENCOUNTER 2019-09-30 12:07 | Inpatient (IN) ==
[2019-09-30] MEDS ORDERED: Albuterol/Ipratropium NEB.SOL (2.5/0.5 MG) 3 ML NEB.SOLN INH ONE (12:25)
[2019-09-30] MEDS ORDERED: NS 0.9% 1000 ml BAG 1,000 ML IV ONE (12:27)
[2019-09-30] MEDS ORDERED: methylPREDNISolone 125 mg 2 ML VIAL IV ONE (12:36)
[2019-09-30 12:44] LABS: ABS Eosinophils 0.4 10^3/ul (0-0.6); ABS Lymphocytes 1.1 10^3/ul (1.0-4.8); ABS Monocytes 0.5 10^3/ul (0-0.8); ABS Neutrophils 4.4 10^3/ul (1.5-7.7); Eosinophil % 6.1 %; Hematocrit 52 % (35-47); Hemoglobin 17.8 g/dL (12.0-16.0); Lymphocyte % 16.9 %; Mean Corpuscular HGB Conc 34 g/dL (31-36); Mean Corpuscular Hemoglobin 32 pg (27-31); Mean Corpuscular Volume 93 fL (80-97); Mean Platelet Volume 8.2 fL (7.4-10.4); Nucleated Red Blood Cells % 0.2; Platelet Count 178 10^3/uL (150-450); Red Blood Count 5.63 10^6 /uL (3.70-4.87); Red Cell Distribution Width 16 % (10-15); White Blood Count 6.3 10^3/uL (3.5-10.8)
[2019-09-30] MEDS ORDERED: Albuterol 0.5% CONC NEB.SOL 5 mg/ml 20 ml BOT INH ONE (12:57)
[2019-09-30 13:02] LABS: Albumin 4.7 g/dL (3.2-5.2); Albumin/Globulin Ratio 1.7 (1-3); BUN/Creatinine Ratio 8.6 (8-20); EGFR African American 100.7 (>60); EGFR Non-African American 83.2 (>60); Globulin 2.8 g/dL (2-4); Potassium 3.3 mmol/L (3.5-5.0); Total Bilirubin 0.6 mg/dL (0.2-1.0); Total Protein 7.5 g/dL (6.4-8.9)
[2019-09-30 14:59] LABS: C Reactive Protein 4.64 mg/L (<8.01)
[2019-09-30] MEDS ORDERED: Albuterol/Ipratropium NEB.SOL (2.5/0.5 MG) 3 ML NEB.SOLN INH PRN (15:21)
[2019-09-30] MEDS ORDERED: Albuterol/Ipratropium NEB.SOL (2.5/0.5 MG) 3 ML NEB.SOLN INH SCH (16:00)
[2019-09-30] MEDS: KCL 20 MEQ/100 ML IVPREMIX 20 MEQ/100 ML BAG IV SCH ×2 (17:59→22:01)
[2019-09-30] MEDS: Heparin 5000 UNITS/ML 1 mL VIAL SUBCUT SCH ×2 (17:59→22:07)
[2019-09-30] MEDS: methylPREDNISolone SOD 40 mg/ml 1 ml VIAL IV SCH ×2 (17:59→23:56)
[2019-09-30] MEDS: Albuterol/Ipratropium NEB.SOL (2.5/0.5 MG) 3 ML NEB.SOLN INH SCH ×2 (19:40→23:04)
[2019-09-30] MEDS: Mometasone/Formoter 200/5 MDI INH SCH (19:40)
[2019-09-30] MEDS: Nystatin SUSPENSION 100,000 UNITS/ML UDC PO SCH (21:53)
[2019-10-01] MEDS: Albuterol/Ipratropium NEB.SOL (2.5/0.5 MG) 3 ML NEB.SOLN INH SCH ×6 (03:23→23:00)
[2019-10-01] MEDS ORDERED: Morphine 2 MG/ML SYRINGE IV PRN (05:00)
[2019-10-01] MEDS ORDERED: Morphine 2 MG/ML SYRINGE ONE (05:07)
[2019-10-01] MEDS: Mometasone/Formoter 200/5 MDI INH SCH ×2 (07:32→19:16)
[2019-10-01] MEDS ORDERED: SPIRIVA Respimat (tiotropium) 2.5 mcg/inh Inhaler INH SCH (09:00)
[2019-10-01] MEDS: Potassium Chlor 20 meq TAB.ER PO SCH (10:30)
[2019-10-01] MEDS: Aspirin EC 81 mg TAB.EC (enteric coated) PO SCH (10:36)
[2019-10-01] MEDS: Multivitamins/Minerals TAB PO SCH (10:37)
[2019-10-01] MEDS: methylPREDNISolone SOD 40 mg/ml 1 ml VIAL IV SCH ×2 (10:38→16:14)
[2019-10-01] MEDS: Heparin 5000 UNITS/ML 1 mL VIAL SUBCUT SCH ×2 (10:38→16:14)
[2019-10-01] MEDS: Nicotine PATCH 21 MG/24 HR PATCH TRANSDERM SCH (10:38)
[2019-10-01] MEDS: Nystatin SUSPENSION 100,000 UNITS/ML UDC PO SCH ×4 (10:50→20:56)
[2019-10-02] MEDS: Heparin 5000 UNITS/ML 1 mL VIAL SUBCUT SCH ×3 (04:50→17:34)
[2019-10-02] MEDS: methylPREDNISolone SOD 40 mg/ml 1 ml VIAL IV SCH ×3 (04:51→17:34)
[2019-10-02] MEDS: Albuterol/Ipratropium NEB.SOL (2.5/0.5 MG) 3 ML NEB.SOLN INH SCH ×6 (06:59→22:57)
[2019-10-02] MEDS: Mometasone/Formoter 200/5 MDI INH SCH ×3 (06:59→19:15)
[2019-10-02 07:16] LABS: BUN/Creatinine Ratio 22.4 (8-20); Calcium 9.5 mg/dL (8.6-10.3); EGFR African American 91.6 (>60); EGFR Non-African American 75.7 (>60)
[2019-10-02] MEDS: Nystatin SUSPENSION 100,000 UNITS/ML UDC PO SCH ×4 (08:33→21:02)
[2019-10-02] MEDS: Nicotine PATCH 21 MG/24 HR PATCH TRANSDERM SCH (08:34)
[2019-10-02] MEDS: Multivitamins/Minerals TAB PO SCH (08:35)
[2019-10-02] MEDS: Aspirin EC 81 mg TAB.EC (enteric coated) PO SCH (08:35)
[2019-10-02] MEDS: Potassium Chlor 20 meq TAB.ER PO SCH (08:37)
[2019-10-02] MEDS: Morphine ORAL CONCENTRATE 5 MG/0.25 ML ORAL.SYRIN PO PRN (21:03)
[2019-10-03] MEDS: Heparin 5000 UNITS/ML 1 mL VIAL SUBCUT SCH ×4 (00:10→22:21)
[2019-10-03] MEDS: methylPREDNISolone SOD 40 mg/ml 1 ml VIAL IV SCH ×4 (00:10→21:15)
[2019-10-03] MEDS: Albuterol/Ipratropium NEB.SOL (2.5/0.5 MG) 3 ML NEB.SOLN INH SCH ×4 (02:30→19:15)
[2019-10-03] MEDS: Mometasone/Formoter 200/5 MDI INH SCH ×2 (07:51→19:16)
[2019-10-03] MEDS: Potassium Chlor 20 meq TAB.ER PO SCH (08:57)
[2019-10-03] MEDS: Multivitamins/Minerals TAB PO SCH (08:58)
[2019-10-03] MEDS: Nicotine PATCH 21 MG/24 HR PATCH TRANSDERM SCH (08:58)
[2019-10-03] MEDS: Aspirin EC 81 mg TAB.EC (enteric coated) PO SCH (08:58)
[2019-10-03] MEDS: Nystatin SUSPENSION 100,000 UNITS/ML UDC PO SCH ×4 (08:58→21:15)
[2019-10-03] MEDS: Morphine ORAL CONCENTRATE 5 MG/0.25 ML ORAL.SYRIN PO PRN (18:44)
[2019-10-04] MEDS: Albuterol/Ipratropium NEB.SOL (2.5/0.5 MG) 3 ML NEB.SOLN INH SCH ×2 (01:04→07:44)
[2019-10-04 07:28] VITALS: BP 151/66
[2019-10-04] MEDS: Mometasone/Formoter 200/5 MDI INH SCH (07:44)
[2019-10-04] MEDS: Heparin 5000 UNITS/ML 1 mL VIAL SUBCUT SCH (08:46)
[2019-10-04] MEDS: methylPREDNISolone SOD 40 mg/ml 1 ml VIAL IV SCH (08:47)
[2019-10-04] MEDS: Nicotine PATCH 21 MG/24 HR PATCH TRANSDERM SCH (08:50)
[2019-10-04] MEDS: Potassium Chlor 20 meq TAB.ER PO SCH (08:51)
[2019-10-04] MEDS: Aspirin EC 81 mg TAB.EC (enteric coated) PO SCH (08:51)
[2019-10-04] MEDS: Multivitamins/Minerals TAB PO SCH (08:51)
[2019-10-04] MEDS: Nystatin SUSPENSION 100,000 UNITS/ML UDC PO SCH (08:52)
== END 2019-10-04 12:05 | disposition home or self-care (01) | DRG 189 ==
LOC: MED 12:07 → ED 12:07 → MED 16:44
PROVIDERS: ADMIT Internal Medicine; ATTEND Internal Medicine